=== PATIENT | female | born 1945 | race Caucasian/White ===

== ENCOUNTER → 2017-04-27 12:54 | Outpatient (CLI) | payer MEDICARE, OTHER, SELFPAY ==
--- NOTE | 2017-04-27 13:00 | HPBI_ITS ---
MAMMOGRAPHY - BILATERAL SCREENING REASON FOR EXAM: Female, 71 years old. Routine annual screening examination. PERTINENT HISTORY: Non-contributory. TECHNIQUE: Digital bilateral breast kamran (3D mammographic acquisition) in the CC and MLO projections. 2-D mediolateral oblique (MLO) and craniocaudad (CC) views of both breasts were obtained. CAD: Full Field Digital Mammography with Computer Added Detection was performed. COMPARISON: Comparison is made with prior study dated December 04, 2015 and January 31, 2014. FINDINGS: Breast Composition: There are scattered areas of fibroglandular density. There are no dominant masses or suspicious calcifications. Stable scattered bilateral calcifications. Stable benign-appearing bilateral axillary lymph nodes. No other significant abnormalities are identified. There has been no significant change since the prior study. HPBI/SCREENING MAMM (CAD), BILAT IMPRESSION: Stable bilateral screening mammogram. Yearly follow-up mammogram recommended. (A) ASSESSMENT CATEGORY: BIRADS Category 2: Benign. A letter regarding these results will be sent to the patient by the facility within 30 days. Approximately 10% of breast cancers are not detected by mammography. A normal mammogram should not delay biopsy of a clinically suspicious abnormality. [id number] Electronically Signed: Gareth Rojas MD at 15:13 EST Tel [phone], Service support ,
== END ==
PROVIDERS: Family Provider Internal Medicine; PCP Internal Medicine; Visit Provider Internal Medicine
DX: Z12.31 Encounter for screening mammogram for malignant neoplasm of breast (principal)
CPT/HCPCS: 77063; 77067

== ENCOUNTER → 2018-01-14 14:27 | Outpatient (CLI) | payer MEDICARE, OTHER, SELFPAY ==
--- NOTE | 2018-01-14 14:34 | CT_ITS ---
STUDY: CT SOFT TISSUE NECK WITH CONTRAST REASON FOR EXAM: Female, 72 years old. Right neck mass RADIATION DOSAGE (If Supplied By Facility): CTDIvol = ( 19.41 ) mGy, DLP = ( 1046.99 ) mGycm TECHNIQUE: The patient was scanned in a multi-detector CT scanner. High resolution transaxial imaging was performed following intravenous administration of 75CC ml of Isovue 300 contrast material. Sagittal and coronal images were reconstructed. # of Images: 546 Individualized dose optimization techniques were used for this CT. COMPARISON: None. FINDINGS: Normal bilateral parotid glands. Normal bilateral notch grinder spaces. Normal bilateral parapharyngeal spaces. Normal bilateral carotid spaces. Normal bilateral sublingual and submandibular glands and spaces. Normal visualized nasopharynx. Normal retropharyngeal space. Normal perivertebral space. Normal visualized bilateral faucial tonsils. The visualized tongue, tongue base and oropharynx are normal. Nonspecific subcentimeter short axis cervical chain lymph nodes. There is atherosclerotic disease of the aorta as well as the carotid and vertebral arteries. There is tortuous elongation of the internal carotid arteries. Normal epiglottis, bilateral vallecula and hypopharynx. The pre-epiglottic and paraglottic adipose spaces are normal. Normal visualized bilateral piriform sinuses, aryepiglottic folds, vocal cords, and arytenoid-cricoid articulations. Normal subglottic trachea. There is a low-attenuation structure 1.1 cm within the left thyroid gland. There is a soft tissue masslike structure measuring 4 x 3.6 x 3.3 cm. This structure is intimately associated with the region of the right thyroid gland. This appears to most likely be originating from the right thyroid lobe. This causes mass effect on the adjacent airway and vascular structures. Emphysematous changes within the visualized lungs. Subcentimeter short axis partially visualized mediastinal lymph nodes. There is mucosal inflammatory disease of the paranasal sinuses consistent with chronic sinusitis. There is multilevel degenerative changes of the cervical spine. Torus palatinus. CT/Soft Tissue Neck WITH Contrast IMPRESSION: There is a masslike structure seen within the right neck and appears to be originating from the right thyroid lobe. Recommend ultrasound to further evaluate. A neoplasm cannot be excluded. Additional low-attenuation structure within the left thyroid gland can be further characterized by ultrasound. Vascular calcifications. Nonspecific subcentimeter short axis lymph nodes as above. Multilevel degenerative changes of the spine. Emphysematous changes within the lungs. Electronically Signed: Pedro Ring, at 3:45 EDT Tel , Service support ,
[2018-01-14 16:13] LABS: Absolute Lymphocyte Count 1.91 X10^3/ul (0.83-4.51); Absolute Neutrophil Count 5.9 X10^3/uL (2.0-7.7); Basophil# 0.03 X10^3/uL; Basophil% 0.3 % (0-1); Eosinophil# 0.16 X10^3/uL; Eosinophils% 1.8 % (0-5); Hematocrit 37.3 % (37-47); Hemoglobin 12.2 g/dl (12.0-15.0); Lymphocyte # 1.91 X10^3/ul (4.0); Lymphocyte % 21.5 % (19-41); Mean Corp Hgb Conc 32.7 g/gl (32-36); Mean Corpuscular Hgb 31.6 pg (27.0-32.0); Mean Corpuscular Volume 96.6 fL (81-99); Mean Platelet Vol. 10.1 fl (6.2-12.0); Monocyte# 0.87 X10^3/uL; Monocyte% 9.8 % (0-10); Neutrophil % 66.6 % (47-70); Platelet Count 273 K/mm3 (150-450); RBC Distribution Width CV 12.4 % (11.6-14.6); RBC Distribution Width SD 42.3 fl (35.1-43.9); Red Blood Count 3.86 M/mm3 (4.2-5.4); White Blood Count 8.9 K/mm3 (4.4-11.0)
[2018-01-14 16:16] LABS: POSITIVE COUNT NO; POSITIVE DIFFERENTIAL NO; POSITIVE MORPHOLOGY NO
[2018-01-14 16:59] LABS: Erythrocyte Sedimentation Rate 32 mm/hr (0-30)
== END ==
PROVIDERS: Family Provider Internal Medicine; PCP Internal Medicine; Referring Provider Internal Medicine; Visit Provider Internal Medicine
DX: R22.1 Localized swelling, mass and lump, neck (principal)
CPT/HCPCS: 36415; 70491; 85025; 85652; 86140; Q9967

== ENCOUNTER → 2018-01-15 12:59 | Outpatient (CLI) | payer MEDICARE, OTHER, SELFPAY ==
--- NOTE | 2018-01-15 13:03 | US_ITS ---
STUDY: THYROID ULTRASOUND REASON FOR EXAM: Female, 72 years old. Thyroid nodule noted on recent CT scan. TECHNIQUE: Ultrasound evaluation of the thyroid was performed with real-time and static shahid-scale imaging. # of Images: 61 COMPARISON: None. FINDINGS: RIGHT LOBE: The right lobe of the thyroid gland measures 5 x 2.7 x 3.6 cm. There is a homogeneous echotexture. There is a well-defined nodule in the right thyroid lobe shows diffuse punctate echogenic foci consistent with TIRADS category 3 low suspicion for malignancy. LEFT LOBE: The left lobe of the thyroid gland measures 3.8 x 1.1 x 1.1 cm. There is a homogeneous echotexture. There is a complex nodule in the lower part of left-sided lobe measures 1.8 x 1.2 x 1.0 cm consistent with TIRADS category 3 low suspicion for malignancy. ISTHMUS: The isthmus measures 4 mm . The regional lymph nodes are normal. US/Thyroid IMPRESSION: Bilateral thyroid nodules as described above are consistent with low suspicion of malignancy. Electronically Signed: Harmony Mai MD at 14:42 EDT Tel , Service support ,
== END ==
PROVIDERS: Family Provider Internal Medicine; PCP Internal Medicine; Referring Provider Internal Medicine; Visit Provider Internal Medicine
DX: R93.89 Abnormal findings on diagnostic imaging of other specified body structures (principal)
CPT/HCPCS: 76536

== ENCOUNTER → 2018-02-04 15:24 | Outpatient (CLI) | payer MEDICARE, OTHER, SELFPAY ==
--- NOTE | 2018-02-04 13:30 | FLU_PTH ---
PATIENT: CHIRAG RUFFIN LOC: [facility] U#:[id number] AGE/SX: 79/F ROOM: RE02/04/[address]: Dr. Dash Cavazos MD : 1945 BED: DIS: SPEC #: [id number] RECD: 02/04/18 15:14 STATUS: SONY CHARLES #: [id number] MARY: 02/04/18 13:[address]: Dash Cavazos DEPT: CYTOLOGY RECD BY: Macario Vega ENTERED: 02/05/18 06:35 SP TYPE: Fluid OTHR DR: Dr. Su Thomas DO Tissues: A - Thyroid gland, NOS B - Thyroid gland, NOS Procedures: Pap Stain (control) Special Stain Group II Surgery Specimen Level IV Cell Block Cytospin Fluid Cytology Other HEADER OPERATION: Ultrasound-guided fine needle aspiration bilateral thyroid PRE-OP DIAGNOSIS: Multinodular goiter E04.2 TISSUE SUBMITTED: A - Right thyroid fluid in syringe x2 for cytology, B - Left thyroid fine needle aspiration 12 slides DIAGNOSIS CYTOLOGY A. Right thyroid fluid, ultrasound guided FNA (cytospin and cell block): Consistent with cyst contents. See cytology study and comment. B. Left thyroid, ultrasound guided FNA (smear): Consistent of benign follicular nodule, favor colloid nodule. Adequate for evaluation. CONCEPCIÓN:georgie 02/08/18 COMMENT A. The specimen is non-diagnostic due to lack of follicular cells. Correlation with clinical, radiologic findings and appropriate followup are necessary. Case has been reviewed in consultation with Dr. Patrick who concurs with the above diagnosis. IDC:AM CYTOLOGY STUDY Slides are reviewed. Specimen is bloody and entirely consists of macrophages. CYTOLOGY GROSS A - Received is 10 ml of cloudy brown fluid labeled with the patient's name and and designated per the requisition as right thyroid. Submitted for cytology preparation including cell block. B - Received are 12 smears labeled with the patient's name and designated per the requisition as left thyroid. Submitted for staining. / 02/05/18 TC: 5 CPT: 25610, 38885, 38197
== END ==
PROVIDERS: Family Provider Internal Medicine; PCP Internal Medicine; Referring Provider Surgery; Visit Provider Surgery
DX: E04.2 Nontoxic multinodular goiter (principal)
CPT/HCPCS: 88108; 88161; 88305; 88313

== ENCOUNTER → 2018-05-05 16:14 | Outpatient (CLI) | payer MEDICARE, OTHER, SELFPAY ==
[2018-01-29 14:03] VITALS: BMI 33.0
--- NOTE | 2018-05-05 16:20 | RAD_ITS ---
STUDY: X-RAY CHEST REASON FOR EXAM: Female, 72 years old. Cough. TECHNIQUE: PA and lateral chest COMPARISON: 04/24/2016 FINDINGS: The lungs are clear. Features of COPD/emphysema. Correlate smoking history. Normal cardiomediastinal silhouette, bill and pleural margins. No acute osseous or upper abdominal process. RAD/Chest PA and Lateral IMPRESSION: No acute cardiopulmonary process. There is no radiographic evidence of pneumonia. Electronically Signed: Macario Christianson MD at 14:54 EST Tel , Service support ,
== END ==
PROVIDERS: Family Provider Internal Medicine; PCP Internal Medicine; Referring Provider Internal Medicine; Visit Provider Internal Medicine
DX: R05 Cough (principal)
CPT/HCPCS: 71046

== ENCOUNTER → 2018-05-06 15:10 | Outpatient (CLI) | payer MEDICARE, OTHER, SELFPAY ==
--- NOTE | 2018-05-06 15:14 | RAD_ITS ---
HISTORY: Abdominal Pain EXAM: Abdominal series COMPARISON: Lumbar spine series 05/06/2018 FINDINGS: XR Abdomen 2 views supine No bowel obstruction. Small and large intestinal loops are nondilated. Lumbar spine and lower thoracic degenerative spondylosis. Atherosclerotic calcifications. No soft tissue mass or organomegaly. As correlated with lumbar spine series the same date, smooth medication tablet within the stomach and the tablet projects at the L2-3 level on the right. Pelvic phleboliths. RAD/Abdomen Single View IMPRESSION: Nonobstructive bowel gas pattern. No acute disease. Chronic changes, as above. at 0607 Reported and signed by: Mykel Jackson MD Electronically Signed: Mykel Jackson, at 6:06 EST Tel , Service support ,
--- NOTE | 2018-05-06 15:15 | RAD_ITS ---
HISTORY: Back Pain COMPARISON: 07/10/2016 FINDINGS: XR Spine Lumbar 5 views No significant change. Lumbar vertebra are normal in height. No fracture or acute osseous abnormality. Straightening of the lumbar spine with loss of the normal lumbar lordosis. Diffuse narrowing of the lumbar disc spaces accompanied by endplate spurring and multilevel reactive endplate sclerosis. Endplate spurs project both anteriorly and posteriorly. The posterior elements appear intact. No spondylolisthesis. SI joints are grossly preserved. 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 RAD/L/S Spine Min 4 Views IMPRESSION: 1. Lumbar spine advanced degenerative disc disease and spondylosis throughout with loss of the normal lumbar lordosis. 2. No significant change compared to previous. 3. Extensive atherosclerotic calcifications. at 0557 Reported and signed by: Mykel Jackson MD Electronically Signed: Mykel Jackson, at 5:56 EST Tel , Service support ,
== END ==
PROVIDERS: Family Provider Internal Medicine; PCP Internal Medicine; Referring Provider Nurse Practitioner Gerontology; Visit Provider Nurse Practitioner Gerontology
DX: M54.9 Dorsalgia, unspecified (principal)
CPT/HCPCS: 72110; 74018

== ENCOUNTER → 2018-06-10 15:13 | Outpatient (CLI) | payer MEDICARE, OTHER, SELFPAY ==
[2018-01-29 14:03] VITALS: BMI 33.0
--- NOTE | 2018-06-10 15:16 | BI_ITS ---
MAMMOGRAPHY - BILATERAL SCREENING REASON FOR EXAM: Female, 72 years old. Routine annual screening examination. PERTINENT HISTORY: Non-contributory. TECHNIQUE: Digital bilateral breast kamran (3D mammographic acquisition) in the CC and MLO projections. 2-D mediolateral oblique (MLO) and craniocaudad (CC) views of both breasts were obtained. CAD: Full Field Digital Mammography with Computer Added Detection was performed. COMPARISON: Comparison is made with prior study dated April 27, 2017 and March 04, 2016. FINDINGS: Breast Composition: There are scattered areas of fibroglandular density. There are no dominant masses or suspicious calcifications. Stable benign-appearing bilateral axillary lymph nodes. No other significant abnormalities are identified. There has been no significant change since the prior study. BI/SCREENING MAMM (CAD), BILAT IMPRESSION: Stable bilateral screening mammogram. Yearly follow-up mammogram recommended. (A) ASSESSMENT CATEGORY: BIRADS Category 2: Benign. A letter regarding these results will be sent to the patient by the facility within 30 days. Approximately 10% of breast cancers are not detected by mammography. A normal mammogram should not delay biopsy of a clinically suspicious abnormality. [id number] Electronically Signed: Gareth Rojas, at 9:17 EDT , Service support ,
--- NOTE | 2018-06-10 15:23 | BD_ITS ---
STUDY: DUAL ENERGY X-RAY ABSORPTIOMETRY / DXA REASON FOR EXAM: Female, 72 years old. Early menopause. Loss of height. TECHNIQUE: Bone Mineral Density (BMD) measurements of lumbar spine and bilateral hips were obtained. COMPARISON: Comparison is made with prior study dated March 04, 2016. FINDINGS: Lumbar Spine (L1-L4): g/cm2 (1.775) / T-score (4.8) / Z-score (6.5) Findings are suggestive of normal bone density with a low fracture risk. Left Femur Total: g/cm2 (1.184) / T-score (1.4) / Z-score (3.1) Left Femoral Neck: g/cm2 (1.132) / T-score (0.7) / Z-score (2.6) Right Femur Total: g/cm2 (1.165) / T-score (1.3) / Z-score (3.0) Right Femoral Neck: g/cm2 (1.210) / T-score (1.2) / Z-score (3.1) The T-Scores on the most recent prior examination were: Lumbar Spine (L1-L4): There has been improvement of bone density since the previous examination. Left Femur Total: which represents an improvement of 1.7%. Right Femur Total: which represents a worsening of 7.2%. BD/Dexa Bone Density Study IMPRESSION: The patient is considered normal as outlined below according to World Madhav Organization (WHO) criteria with a low fracture risk. There has been improvement of bone density since the previous examination. Reference Information: The T-score is the number of standard deviations above or below the standard which is normal for young adults at their peak bone mineral density. The World Health Organization (WHO) interprets the T-scores as follows: Above -1 Normal bone density Between -1 and -2.5 Osteopenia Equal to / or below -2.5 Osteoporosis As a practical clinical guideline, osteopenia may be graded as follows: Mild -1 through -1.5 Moderate -1.6 through -2.0 Severe -2.1 through -2.4 The Z-score is the number of standard deviations above or below age-matched controls. A Z-score of less than -1.5 would be considered abnormal. References: 1. NIH Osteoporosis and Related Bone Diseases http://www.osteo.org 2. International Society for Clinical Densitometry http://www.iscd.org 3. National Osteoporosis Foundation http://www.nof.org Electronically Signed: Gareth Rojas, at 13:32 EDT , Service support ,
== END ==
PROVIDERS: Family Provider Internal Medicine; PCP Internal Medicine; Referring Provider Internal Medicine; Visit Provider Internal Medicine
DX: Z12.31 Encounter for screening mammogram for malignant neoplasm of breast (principal); Z78.0 Asymptomatic menopausal state
CPT/HCPCS: 77063; 77067; 77080

== ENCOUNTER 2018-09-09 23:07 | Emergency (ER) | payer MEDICARE, OTHER, SELFPAY ==
[2018-09-09 23:09] VITALS: BP 186/73; PULSE 79; RESP 17; TEMP 36.9; O2SAT 97; BMI 30.4
--- NOTE | 2018-09-09 23:21 | EKG12_ITS ---
Test Reason : ABDOMINAL PAIN Blood Pressure : / mmHG Vent. Rate : 076 BPM Atrial Rate : 076 BPM P-R Int : 188 ms QRS Dur : 088 ms QT Int : 388 ms P-R-T Axes : 058 062 035 degrees QTc Int : 436 ms Normal sinus rhythm Normal ECG Confirmed by AGUEDA TERRY ([id number]), general expeditor JOCELINE GOODE ([id number]) on 09/13/2018 1:12:59 PM Referred By: HUNTER Confirmed By:JAMEL TERRY
[2018-09-09] MEDS: Ondansetron 4 MG/2 ML Vial IV (23:37)
[2018-09-09 23:53] LABS: Absolute Neutrophil Count 4.4 X10^3/uL (2.0-7.7); Basophil# 0.03 X10^3/uL; Basophil% 0.4 % (0-1); Eosinophil# 0.21 X10^3/uL; Eosinophils% 2.7 % (0-5); Hematocrit 39.8 % (37-47); Hemoglobin 13.3 g/dl (12.0-15.0); Lymphocyte % 28.2 % (19-41); Mean Corp Hgb Conc 33.4 g/gl (32-36); Mean Corpuscular Hgb 31.1 pg (27.0-32.0); Mean Platelet Vol. 9.7 fl (6.2-12.0); Monocyte# 0.94 X10^3/uL; Monocyte% 12.1 % (0-10); Neutrophil % 56.5 % (47-70); Platelet Count 248 K/mm3 (150-450); RBC Distribution Width CV 12.5 % (11.6-14.6); RBC Distribution Width SD 41.7 fl (35.1-43.9); Red Blood Count 4.28 M/mm3 (4.2-5.4); White Blood Count 7.8 K/mm3 (4.4-11.0)
[2018-09-09 23:56] LABS: POSITIVE COUNT NO; POSITIVE DIFFERENTIAL NO; POSITIVE MORPHOLOGY NO
[2018-09-10 00:04] LABS: ALB/GLOB Ratio 0.9 RATIO (0.9-2.4); AST(SGOT) 31 U/L (15-37); Alanine Aminotransfer ALT/SGPT 48 U/L (13-56); Albumin, Serum 3.6 g/dL (3.2-5.0); Alkaline Phosphatase 100 U/L (45-117); Anion Gap 5 (5-15); BUN 21 mg/dL (7-18); BUN/Creat Ratio 17.8 RATIO (10-20); Calcium,Total 9.1 mg/dL (8.5-10.1); Chloride 107 mmol/L (98-107); Creatinine, Serum 1.18 mg/dL (0.55-1.02); EST Glomerular Filtration Rate 47 mL/min (>60); Est Glom Filt Rate - Afr Amer 57 mL/min (>60); Estimated Creatinine Clearance 34.08 ml/min; Globulin 4.1 g/dL (2.2-4.2); Glucose 171 mg/dL (74-106); Lipase 196 U/L (73-393); Potassium 3.7 mmol/L (3.5-5.1); Protein, Total 7.7 g/dL (6.4-8.2); Sodium Level 139 mmol/L (136-145)
--- NOTE | 2018-09-10 00:18 | ED.VISSUMM ---
- ER Visit Summary Date of Service: 09/10/18 Chief Complaint: Dizziness History of Present Illness: The patient is a 73 F who presents with dizziness. This began about 5 hours ago. She describes it as a sensation of the room spinning. This is actually since resolved. She states at home she felt heating and ventilating worker her chest and upper abdomen. She had no pain. She was not short of breath. She feels mildly nauseated no vomiting. No history of prior similar symptoms. Physical Examination: Blood pressure 186/73 vitals otherwise normal Moist mucous membranes Heart regular rate and rhythm Lungs clear Abdomen soft Alert Test Results: EKG shows sinus rhythm at a rate of 76. Labs notable for glucose 171. Hepatic function lipase normal. Troponin negative. Emergency Department Course and Treatment: Patient was given Zofran for nausea. On reevaluation she has no complaints. Her symptoms have resolved. She was advised to follow-up with her primary care physician. She was discharged home. Treatment Plan: [] Disposition: Discharge Impression: Dizziness This note was generated with [employer] dictation software. It may contain incorrect words, spelling, and punctuation that were not noted in review of the chart prior to signing ED Disposition - Plan for ED Patient: Referrals: Su Thomas DO [Primary Care Provider] -
--- NOTE | 2018-09-10 00:20 | ED.DEP ---
ED Disposition - Plan for ED Patient: Instructions: ED Dizziness [facility] Referrals: Su Thomas DO [Primary Care Provider] -
== END 2018-09-10 00:35 | disposition home or self-care (01) ==
PROVIDERS: Emergency Provider Emergency Medicine; Family Provider Internal Medicine; PCP Internal Medicine
DX: R42 Dizziness and giddiness (principal); R11.0 Nausea; E11.9 Type 2 diabetes mellitus without complications; I10 Essential (primary) hypertension; E78.00 Pure hypercholesterolemia, unspecified; M79.7 Fibromyalgia; M19.90 Unspecified osteoarthritis, unspecified site; E03.9 Hypothyroidism, unspecified; Z79.899 Other long term (current) drug therapy
CPT/HCPCS: 80053; 83690; 84484; 85025; 93005; 96374; 99285; A4216; J2405

== ENCOUNTER 2018-10-17 09:56 | Emergency (ER) | payer MEDICARE, OTHER, SELFPAY ==
[2018-10-17 09:57] VITALS: BP 127/75; PULSE 88; RESP 16; TEMP 36.6; O2SAT 96; BMI 32.0
--- NOTE | 2018-10-17 10:12 | CT_ITS ---
STUDY: CT ABDOMEN AND PELVIS WITHOUT CONTRAST REASON FOR EXAM: Female, 73 years old. Right flank pain RADIATION DOSAGE (If Supplied By Facility): CTDIvol = ( 11.27 ) mGy, DLP = ( 551.70 ) mGycm TECHNIQUE: Transaxial images were obtained from the dome of the diaphragm to the symphysis pubis without oral contrast, and without intravenous contrast. Sagittal and coronal images were reconstructed. Individualized dose optimization techniques were used for this CT. COMPARISON: None. FINDINGS: The visualized lung bases are unremarkable. The visualized portions of the heart are within normal limits. There is decreased attenuation of the liver consistent with steatosis. Normal gallbladder and extrahepatic biliary system. Normal spleen. Normal pancreas. Normal bilateral adrenal glands. Normal right kidney. Normal left kidney. Normal visualized stomach. There is a small duodenal diverticulum of doubtful significance. There are multiple colonic diverticula consistent with diverticulosis. There is non-visualization of the appendix. There is diffuse atherosclerotic calcification of the abdominal aorta, without a demonstrated aneurysm. Normal inferior vena cava. Normal retroperitoneum. Normal urinary bladder. There is absence of the uterus consistent with a prior hysterectomy. Normal abdominal wall. There are diffuse degenerative changes of the visualized lumbar spine. CT/Abdomen/Pelvis without Cont IMPRESSION: 1. No hydronephrosis or urinary tract calcifications. 2. Chronic changes, as above. Electronically Signed: Lawrence Woodall MD at 10:46 EDT , Service support ,
--- NOTE | 2018-10-17 10:13 | ED.DCSUM_ITS ---
History of Present Illness Chief Complaint: Back Detail of Chief Complaint: Back / right flank pain Informant: Patient Onset: Month(s) - 1 month Context: Gradual Onset Timing: Waxes and wanes Current Severity: Moderate Maximum Severity: Moderate Narrative: Patient presents with a one-month history of right-sided back pain. She denies injury at onset. She was seen by her PCP earlier this week who felt it was related to muscle spasms. She is been taking Flexeril without significant improvement. She is also been taking Tylenol arthritis. Patient denies urinary symptoms. She denies abdominal pain, nausea, or vomiting. She denies pain radiation to the legs. She denies history of prior back problems. - Past Medical History (1) Diabetes Status: Chronic (2) Neuropathy Status: Chronic (3) Fibromyalgia Status: Chronic (4) Hypertension Status: Chronic (5) High cholesterol Status: Chronic (6) Hypothyroidism Status: Chronic (7) Rheumatoid arthritis Status: Chronic Past Medical History - Allergies and Home Meds Allergies/Adverse Reactions: Allergies aspirin Allergy (Intermediate, Verified 10/17/18 09:57) heart races, dizziness povidone-iodine [From Betadine] Allergy (Intermediate, Verified 10/17/18 09:57) rash soap [From Betadine] Allergy (Intermediate, Verified 10/17/18 09:57) rash amitriptyline Allergy (Unknown, Verified 10/17/18 09:57) Unknown doxepin Allergy (Unknown, Verified 10/17/18 09:57) unknown guaifenesin [From Entex LA] Allergy (Unknown, Verified 10/17/18 09:57) Unknown latex Allergy (Unknown, Verified 10/17/18 09:57) Unknown phenylephrine [From Entex LA] Allergy (Unknown, Verified 10/17/18 09:57) Unknown phenylpropanolamine [From Entex LA] Allergy (Unknown, Verified 10/17/18 09:57) Unknown pseudoephedrine Allergy (Unknown, Verified 10/17/18 09:57) Unknown Sulfa (Sulfonamide Antibiotics) Allergy (Unknown, Verified 10/17/18 09:57) Unknown Primary Care Physician: Su Thomas DO [Primary Care Provider] - Prior records reviewed: Yes Past Medical History: - - Reviewed Lives: Spouse/ Significant Other Smoking Status: Never smoker Review of Systems General: Denies: Chills, Fever Eyes: Denies: Visual changes - left, Visual changes - right ENT: Denies: Bilateral ear pain Cardiovascular: Denies: Chest pain, Palpitations Respiratory: Denies: Dyspnea, Cough Gastrointestinal: Denies: Abdominal pain, Nausea, Vomiting, Diarrhea Musculoskeletal: Reports: Back pain. Denies: Neck pain Skin: Denies: Rash Neurological: Denies: Headache, Weakness, Parasthesia Endocrine: Denies: Polyuria, Polydipsia Hematologic: Denies: Easy bleeding Allergy: Denies: Uticaria Physical Exam Vital Signs/Narrative: Vital Signs Temp Pulse Resp BP Pulse Ox 10/17/18 09:57 97.9 F 88 16 127/75 H 96 General: Well nourished, Well developed Head: Normocephalic ENT: Moist mucous membranes Neck: Supple Cardiovascular: Regular rate, Regular rhythm Respiratory: No distress, CTA bilaterally Abdomen: Soft, Nontender, Nondistended Back: Normal Inspection - No midline thoracic or lumbar tenderness. She has reproducible tenderness in the lateral portion of the right lumbar paraspinals. No overlying skin change noted. Extremities: Nontender, No edema Skin: Normal color Neurological: Alert, Oriented x3, Normal Strength, Normal Sensation Psychological: Normal affect Diagnostic/Tx/Re-eval Impressions Abdomen/Pelvis CT 10/17/18 10:12 IMPRESSION: 1. No hydronephrosis or urinary tract calcifications. 2. Chronic changes, as above. Electronically Signed: Lawrence Woodall MD at 10:46 EDT , Service support , 10/17/18 10:12 Abdomen/Pelvis without Cont [CT] Stat Laboratory Results 10/17/18 10:47 Urine Color Straw Urine Clarity Clear Urine pH 7.0 Ur Specific Advance 1.005 Urine Protein Negative Urine Glucose (UA) Normal Urine Ketones Negative Urine Occult Blood Negative Urine Nitrite Negative Urine Bilirubin Negative Urine Urobilinogen Normal Ur Leukocyte Esterase Negative Urine RBC 0 SEEN Urine WBC 0 SEEN Ur Squamous Epith Cells 0 SEEN Urine Bacteria 0 SEEN Urine Mucus 0 SEEN - Medical Decision Making Patient was given 1 tab of [place] here along with Zofran. On repeat evaluation pain is significantly improved. Test results were discussed with her. She does raise concern about possibility of constipation with pain medication, stating she has had problems with that in the past. I recommended trying Lidoderm patches [id number] to the area and using a half a tab of [place] as needed intermittently. She voices understanding and agreement. ED Disposition - Plan for ED Patient: Disposition: Home or Assisted Living Diagnosis: Musculoskeletal back pain Instructions: BACK AND NECK PAIN, General Prescriptions: Hydrocodone Bitart/Apap 5-325 [[place] 5MG-325MG] 0.5 - 1 tablet PO Q6H PRN PRN 3 Days #10 tablet PRN Reason: Pain Ondansetron [Zofran Odt] 4 mg PO Q8H PRN PRN #10 tablet PRN Reason: Nausea Referrals: Su Thomas DO [Primary Care Provider] - 1 Week if not improving
[2018-10-17] MEDS: HYDROcodone Bitartrate/Apap 5/325 Tablet PO (10:20)
[2018-10-17] MEDS: Ondansetron ODT 4 MG Tablet PO (10:20)
[2018-10-17 10:53] LABS: Bacteria 0 SEEN /hpf (None Seen); Mucous, Urine 0 SEEN /hpf (<or=2+); Red Blood Cells-Urine 0 SEEN /hpf (0-5); Squamous Epithelial Cells - UA 0 SEEN /hpf (5-10); White Blood Cells 0 SEEN /hpf (0-5)
[2018-10-17 11:37] LABS: Color, Urine Straw (Yellow); Glucose, Dipstick Normal (Normal); Ketone-Dipstick Negative (Negative); Leukocyte Esterase-Dipstick Negative /ul (Negative); Nitrite-Dipstick Negative (Negative); Occult Blood-Urine Negative /ul (Negative); Protein-Dipstick Negative (Negative); Specific Gravity, Urine 1.005 (1.002-1.030); Urine Bilirubin Dipstick Negative (Negative); Urine Clarity Clear (Clear); Urine Urobilinogen Normal (Normal)
[2018-10-17 12:16] VITALS: BP 121/83; PULSE 61; RESP 12; O2SAT 97
== END 2018-10-17 12:16 | disposition home or self-care (01) ==
PROVIDERS: Emergency Provider Emergency Medicine; Family Provider Internal Medicine; PCP Internal Medicine
DX: M54.9 Dorsalgia, unspecified (principal); E11.40 Type 2 diabetes mellitus with diabetic neuropathy, unspecified; M79.7 Fibromyalgia; I10 Essential (primary) hypertension; E78.00 Pure hypercholesterolemia, unspecified; E03.9 Hypothyroidism, unspecified; M06.9 Rheumatoid arthritis, unspecified; Z79.899 Other long term (current) drug therapy
CPT/HCPCS: 74176; 81001; 99283

== ENCOUNTER → 2019-03-10 14:02 | Outpatient (CLI) | payer MEDICARE, OTHER, SELFPAY ==
--- NOTE | 2019-03-10 14:15 | RAD_ITS ---
STUDY: X-RAY - PELVIS AND RIGHT HIP REASON FOR EXAM: Muscle spasms for one year, no specific injury. TECHNIQUE: 2 views of the pelvis and hip. COMPARISON: None. FINDINGS: There are pelvic phleboliths. Normal bilateral iliac wings, sacroiliac joints and visualized sacrum. Normal bilateral superior and inferior pubic rami. Normal pubic symphysis. Normal bilateral ischial tuberosities. Normal visualized femoral head. Normal acetabulum. There is moderate joint space narrowing of the right hip joint. There is an enthesophyte at the right greater trochanter. RAD/HIP, UNI W/ Pelvis 2-3 Views IMPRESSION: Right hip arthrosis. Enthesopathy of the right greater trochanter. Electronically Signed: Dakota Garcia MD at 14:38 EST Tel , Service support ,
== END ==
PROVIDERS: Family Provider Internal Medicine; PCP Internal Medicine; Referring Provider Internal Medicine; Visit Provider Internal Medicine
DX: M25.551 Pain in right hip (principal)
CPT/HCPCS: 73502

== ENCOUNTER → 2019-05-09 14:49 | Outpatient (CLI) | payer MEDICARE, OTHER, SELFPAY ==
--- NOTE | 2019-05-09 14:52 | RAD_ITS ---
STUDY: X-RAY CHEST REASON FOR EXAM: Female, 73 years old. COUGH, CONGESTION X 1 WEEK TECHNIQUE: PA and lateral views of the chest. COMPARISON: 05/05/18. FINDINGS: The lungs are clear and expanded. There is no demonstrated pleural abnormality. Normal size heart. Normal mediastinum and bill. Normal visualized pulmonary arteries. There is atherosclerotic calcification of the aortic arch with tortuosity. There is an increased kyphosis of the thoracic spine. Normal visualized ribs, clavicles, and shoulders. There is no demonstrated abnormality of the visualized soft tissue structures of the upper abdomen. RAD/Chest PA and Lateral IMPRESSION: No acute cardiopulmonary disease. Electronically Signed: Luh Jenkins MD at 0:22 EST , Service support ,
== END ==
PROVIDERS: PCP Internal Medicine; Referring Provider Internal Medicine; Visit Provider Internal Medicine
DX: R05 Cough (principal)
CPT/HCPCS: 71046

== ENCOUNTER → 2019-05-23 16:47 | Outpatient (CLI) | payer MEDICARE, OTHER, SELFPAY ==
--- NOTE | 2019-05-23 16:59 | RAD_ITS ---
STUDY: X-RAY CHEST REASON FOR EXAM: Female, 73 years old. COUGH AND CONGESTION TECHNIQUE: Frontal and lateral views of the chest. COMPARISON: 05/09/2019 FINDINGS: There is hyperinflation of the lungs consistent with chronic obstructive lung disease (COPD). No infiltrates or effusions. There is no demonstrated pleural abnormality. Normal size heart. Normal mediastinum and bill. Normal visualized pulmonary arteries. Normal visualized aortic arch and descending thoracic aorta. There are diffuse degenerative changes of the visualized thoracic spine. Normal visualized ribs, clavicles, and shoulders. There is no demonstrated abnormality of the visualized soft tissue structures of the upper abdomen. RAD/Chest PA and Lateral IMPRESSION: There are findings consistent with COPD. There is no evidence of acute chest disease. Electronically Signed: Carlos Monge MD at 23:52 EST , Service support ,
== END ==
PROVIDERS: PCP Internal Medicine; Referring Provider Internal Medicine; Visit Provider Internal Medicine
DX: R05 Cough (principal)
CPT/HCPCS: 71046

== ENCOUNTER → 2019-06-07 13:22 | Outpatient (CLI) | payer MEDICARE, OTHER, SELFPAY ==
[2019-06-07 15:41] LABS: Absolute Lymphocyte Count 1.89 X10^3/uL (0.83-4.51); Basophil# 0.04 X10^3/uL; Basophil% 0.5 % (0-1); Eosinophil# 0.27 X10^3/uL; Eosinophils% 3.5 % (0-5); Hematocrit 40.1 % (37-47); Lymphocyte # 1.89 X10^3/ul (4.0); Lymphocyte % 24.2 % (19-41); Mean Corp Hgb Conc 32.4 g/dL (32-36); Mean Corpuscular Hgb 30.9 pg (27.0-32.0); Mean Corpuscular Volume 95.2 fL (81-99); Mean Platelet Vol. 10.8 fl (6.2-12.0); Monocyte# 0.65 X10^3/uL; Monocyte% 8.3 % (0-10); NRBC Flagged by Analyzer 0 % (0-5); Neutrophil # 4.95 X10^3/uL (2.7-7.7); Neutrophil % 63.4 % (47-70); Platelet Count 192 K/mm3 (150-450); RBC Distribution Width CV 12.2 % (11.6-14.6); RBC Distribution Width SD 42.4 fl (35.1-43.9); Red Blood Count 4.21 M/mm3 (4.2-5.4); White Blood Count 7.8 K/mm3 (4.4-11.0)
[2019-06-07 15:57] LABS: Erythrocyte Sedimentation Rate 35 mm/hr (0-30)
[2019-06-07 16:05] LABS: ALB/GLOB Ratio 0.9 RATIO (0.9-2.4); AST(SGOT) 28 U/L (15-37); Alanine Aminotransfer ALT/SGPT 35 U/L (13-56); Albumin, Serum 3.3 g/dL (3.2-5.0); Alkaline Phosphatase 72 U/L (45-117); Anion Gap 7 (5-15); BUN 19 mg/dL (7-18); BUN/Creat Ratio 20.3 RATIO (10-20); CRP 9.19 mg/L (0.0-3.0); Calcium,Total 9.5 mg/dL (8.5-10.1); Chloride 102 mmol/L (98-107); Creatinine, Serum 0.93 mg/dL (0.55-1.02); EST Glomerular Filtration Rate 62 mL/min (>60); Est Glom Filt Rate - Afr Amer 75 mL/min (>60); Globulin 3.6 g/dL (2.2-4.2); Glucose 147 mg/dL (74-106); Protein, Total 6.9 g/dL (6.4-8.2); Rheumatoid Factor < 10.0 IU/mL (<15); Sodium Level 138 mmol/L (136-145)
[2019-06-08 09:16] LABS: Hepatitis B Surface Antibody Non-Reactive; Hepatitis B Surface Antigen Non-Reactive (Nonreactive); Hepatitis C Antibody Non-Reactive (Nonreactive)
[2019-06-10 10:16] LABS: CCP IgG Antibodies 9 units (0-19); Hepatitis B Core AB IgM Negative (Negative)
[2019-06-10 11:26] LABS: ANTINUCLEAR ANTIBODIES DIRECT Negative (Negative)
== END ==
PROVIDERS: PCP Internal Medicine; Referring Provider Internal Medicine Rheumatology; Visit Provider Internal Medicine Rheumatology
DX: M06.4 Inflammatory polyarthropathy (principal); M79.7 Fibromyalgia; M19.041 Primary osteoarthritis, right hand; M17.0 Bilateral primary osteoarthritis of knee; M47.897 Other spondylosis, lumbosacral region; M47.892 Other spondylosis, cervical region; E11.42 Type 2 diabetes mellitus with diabetic polyneuropathy; I10 Essential (primary) hypertension; E03.9 Hypothyroidism, unspecified; F32.9 Major depressive disorder, single episode, unspecified; E78.5 Hyperlipidemia, unspecified
CPT/HCPCS: 36415; 80053; 85025; 85652; 86038; 86140; 86200; 86431; 86705; 86706; 86803; 87340

== ENCOUNTER → 2019-07-20 12:47 | Outpatient (CLI) | payer MEDICARE, OTHER, SELFPAY ==
[2019-07-20 15:32] LABS: Absolute Neutrophil Count 4.2 X10^3/uL (2.0-7.7); Basophil# 0.05 X10^3/uL; Basophil% 0.7 % (0-1); Eosinophil# 0.22 X10^3/uL; Eosinophils% 3.1 % (0-5); Hematocrit 39.5 % (37-47); Hemoglobin 13.1 g/dL (12.0-15.0); Lymphocyte % 25.3 % (19-41); Mean Corp Hgb Conc 33.2 g/dL (32-36); Mean Corpuscular Hgb 30.9 pg (27.0-32.0); Mean Corpuscular Volume 93.2 fL (81-99); Mean Platelet Vol. 9.9 fl (6.2-12.0); Monocyte# 0.84 X10^3/uL; Monocyte% 11.8 % (0-10); NRBC Flagged by Analyzer 0 % (0-5); Neutrophil # 4.19 X10^3/uL (2.7-7.7); Neutrophil % 58.8 % (47-70); Platelet Count 342 K/mm3 (150-450); RBC Distribution Width CV 12.6 % (11.6-14.6); RBC Distribution Width SD 42.9 fl (35.1-43.9); Red Blood Count 4.24 M/mm3 (4.2-5.4); White Blood Count 7.1 K/mm3 (4.4-11.0)
[2019-07-20 15:58] LABS: ALB/GLOB Ratio 0.9 RATIO (0.9-2.4); AST(SGOT) 24 U/L (15-37); Alanine Aminotransfer ALT/SGPT 32 U/L (13-56); Albumin, Serum 3.5 g/dL (3.2-5.0); Alkaline Phosphatase 64 U/L (45-117); Anion Gap 9 (5-15); BUN 25 mg/dL (7-18); BUN/Creat Ratio 25.6 RATIO (10-20); Calcium,Total 9.4 mg/dL (8.5-10.1); Chloride 102 mmol/L (98-107); Creatinine, Serum 0.98 mg/dL (0.55-1.02); EST Glomerular Filtration Rate 59 mL/min (>60); Est Glom Filt Rate - Afr Amer 71 mL/min (>60); Globulin 3.9 g/dL (2.2-4.2); Glucose 135 mg/dL (74-106); Potassium 3.5 mmol/L (3.5-5.1); Protein, Total 7.4 g/dL (6.4-8.2); Sodium Level 136 mmol/L (136-145)
== END ==
PROVIDERS: PCP Internal Medicine; Referring Provider Internal Medicine Rheumatology; Visit Provider Internal Medicine Rheumatology
DX: M06.4 Inflammatory polyarthropathy (principal); M79.7 Fibromyalgia; M19.041 Primary osteoarthritis, right hand; M17.0 Bilateral primary osteoarthritis of knee; M47.897 Other spondylosis, lumbosacral region; M47.892 Other spondylosis, cervical region; E11.42 Type 2 diabetes mellitus with diabetic polyneuropathy; I10 Essential (primary) hypertension; E03.9 Hypothyroidism, unspecified; E78.5 Hyperlipidemia, unspecified
CPT/HCPCS: 36415; 80053; 85025

== ENCOUNTER 2020-02-15 02:40 | Emergency (ER) | payer MEDICARE, OTHER, SELFPAY ==
[2020-02-15 02:41] VITALS: BP 170/107; PULSE 84; RESP 18; TEMP 36.7; O2SAT 98; BMI 35.1
--- NOTE | 2020-02-15 02:54 | ED.DCSUM_ITS ---
History of Present Illness Chief Complaint: Dental Informant: Patient Onset: Weeks - 1 Context: Gradual Onset Timing: Continuous Quality: ache Location: left maxillary molar Current Severity: Severe Maximum Severity: Severe Worsened by: eating Relieved by: - - Tylenol helped earlier in the day. took 1/2 of a tramadol tablet tonight. Associated Symptoms: - - No fever, jaw or facial swelling Narrative: Patient has had a tooth ache for a week, she has an appointment with the dentist at 9:30 in the morning. It is almost 3 AM right now, she states she was woken up by the pain, took a half of a tramadol tablet, but she is just in a lot of pain and came in because she needs some help with that. - Past Medical History (1) Diabetes Status: Chronic (2) Fibromyalgia Status: Chronic (3) High cholesterol Status: Chronic (4) Hypertension Status: Chronic (5) Hypothyroidism Status: Chronic (6) Neuropathy Status: Chronic (7) Rheumatoid arthritis Status: Chronic Past Medical History - Allergies and Home Meds Allergies/Adverse Reactions: Allergies aspirin Allergy (Intermediate, Verified 02/15/20 02:41) heart races, dizziness povidone-iodine [From Betadine] Allergy (Intermediate, Verified 02/15/20 02:41) rash soap [From Betadine] Allergy (Intermediate, Verified 02/15/20 02:41) rash amitriptyline Allergy (Unknown, Verified 02/15/20 02:41) Unknown doxepin Allergy (Unknown, Verified 02/15/20 02:41) unknown guaifenesin [From Entex LA] Allergy (Unknown, Verified 02/15/20 02:41) Unknown latex Allergy (Unknown, Verified 02/15/20 02:41) Unknown phenylephrine [From Entex LA] Allergy (Unknown, Verified 02/15/20 02:41) Unknown phenylpropanolamine [From Entex LA] Allergy (Unknown, Verified 02/15/20 02:41) Unknown pseudoephedrine Allergy (Unknown, Verified 02/15/20 02:41) Unknown Sulfa (Sulfonamide Antibiotics) Allergy (Unknown, Verified 02/15/20 02:41) Unknown Primary Care Physician: Su Thomas DO [Primary Care Provider] - Lives: Alone Smoking Status: Never smoker Review of Systems General: Denies: Chills, Fever, Sweats Eyes: Denies: Visual changes - bilaterally, Diplopia ENT: Reports: - - Tooth ache. See HPI.. Denies: Bilateral ear pain, Rhinorrhea, Sore throat Respiratory: Denies: Dyspnea, Cough Gastrointestinal: Denies: Nausea, Vomiting Skin: Denies: Rash, Wounds Neurological: Denies: Headache, Weakness, Numbness Physical Exam Vital Signs/Narrative: Vital Signs Temp Pulse Resp BP Pulse Ox 02/15/20 02:41 98.0 F 84 18 170/107 H 98 Inital Vital Signs reviewed: Yes General: Well nourished, Well developed, - - No acute distress Head: Normocephalic, Atraumatic ENT: Moist mucous membranes, No rhinorrhea. Negative for: Sinus tenderness Mouth/Throat: Normal inspection lips/gums, Normal oral mucosa, No focal abscess, Normal posterior oropharynx, No sublingual edema, Normal Stensen's duct, Tenderness on tooth percussion - On only left maxillary tooth the patient has left, which has a metal cap over it and is otherwise unremarkable-appearing. Negative for: Dental abscess, Trismus Neck: Supple, No lymphadenopathy, Nontender Respiratory: No distress Neurological: Alert, Oriented x3, Cranial nerves II-XII grossly intact, Normal Strength, Normal Sensation, Normal Gait Psychological: Normal affect, Normal Mood Diagnostic/Tx/Re-eval - Medical Decision Making No sign of any acute abscess or drainable collection or gingivitis. Since patient has a dentist appointment in several hours from now, she is in agreement that it would be fine to just treat her pain. She may need antibiotics, but I will defer to dentistry for most appropriate treatment there. ED Disposition - Plan for ED Patient: Disposition: Home or Assisted Living Diagnosis: Odontalgia Instructions: ED Tooth Pain Prescriptions: Hydrocodone Bitart/Apap 5-325 [[place] 5MG-325MG] 1 tab PO Q4H PRN PRN 2 Days #10 tab PRN Reason: Pain Prescription Printed Referrals: Su Thomas DO [Primary Care Provider] - Dentist,Your [STAFF PHYSICIAN] - Keep [facility] appointment (today)
[2020-02-15] MEDS: HYDROcodone Bitartrate/Apap 5/325 Tablet PO (03:12)
[2020-02-15 03:22] VITALS: RESP 16
== END 2020-02-15 03:26 | disposition home or self-care (01) ==
LOC: ED 03:20
PROVIDERS: Emergency Provider Emergency Medicine; PCP Internal Medicine
DX: K08.89 Other specified disorders of teeth and supporting structures (principal); I10 Essential (primary) hypertension; E03.9 Hypothyroidism, unspecified; M06.9 Rheumatoid arthritis, unspecified; M79.7 Fibromyalgia; E78.00 Pure hypercholesterolemia, unspecified; E11.40 Type 2 diabetes mellitus with diabetic neuropathy, unspecified; Z79.899 Other long term (current) drug therapy
CPT/HCPCS: 99282

== ENCOUNTER 2020-02-17 17:39 | Emergency (ER) | payer MEDICARE, OTHER, SELFPAY ==
[2020-02-17 17:40] VITALS: BP 154/94; PULSE 87; RESP 16; TEMP 37.2; O2SAT 95; BMI 31.1
--- NOTE | 2020-02-17 18:21 | ED.VIS.DENTA ---
History of Present Illness Chief Complaint: Dental Informant: Patient Onset: Weeks - 1 Context: Gradual Onset Timing: Continuous Quality: ache Location: left cheek/face Current Severity: Mild Maximum Severity: Severe Worsened by: palpation Relieved by: - - tylenol she took 45 min prior to eval Associated Symptoms: - - No fevers or swelling Narrative: Patient presenting for dental pain. Seen here by myself several days ago, she saw her dentist that morning and was put on 2 antibiotics, this is the third day of those. She revisited the dentist today and they pulled the affected tooth that she states they x-rayed and told her was diseased and needed to be extracted. She states they did a lot of intraoral injections to get the area anesthetized, extracting the tooth did not hurt, but she still had a painful area in her left cheek that was not numb after the injections. She states she still has that pain now. She called both her doctor and the dentist about this, and advised her to come to the emergency department for it. She denies any other new symptoms. No fevers or chills, nausea/vomiting, inability to swallow, discharge or bleeding from the extraction site, or generalized weakness. The pain in her left cheek does not radiate. She denies any earache. She denies any neck pain anteriorly. She denies any rhinorrhea. - Past Medical History (1) Diabetes Status: Chronic (2) Fibromyalgia Status: Chronic (3) High cholesterol Status: Chronic (4) Hypertension Status: Chronic (5) Hypothyroidism Status: Chronic (6) Neuropathy Status: Chronic (7) Rheumatoid arthritis Status: Chronic Past Medical History - Allergies and Home Meds Allergies/Adverse Reactions: Allergies aspirin Allergy (Intermediate, Verified 02/17/20 17:44) heart races, dizziness povidone-iodine [From Betadine] Allergy (Intermediate, Verified 02/17/20 17:44) rash soap [From Betadine] Allergy (Intermediate, Verified 02/17/20 17:44) rash amitriptyline Allergy (Unknown, Verified 02/17/20 17:44) Unknown doxepin Allergy (Unknown, Verified 02/17/20 17:44) unknown guaifenesin [From Entex LA] Allergy (Unknown, Verified 02/17/20 17:44) Unknown latex Allergy (Unknown, Verified 02/17/20 17:44) Unknown phenylephrine [From Entex LA] Allergy (Unknown, Verified 02/17/20 17:44) Unknown phenylpropanolamine [From Entex LA] Allergy (Unknown, Verified 02/17/20 17:44) Unknown pseudoephedrine Allergy (Unknown, Verified 02/17/20 17:44) Unknown Sulfa (Sulfonamide Antibiotics) Allergy (Unknown, Verified 02/17/20 17:44) Unknown Primary Care Physician: Su Thomas DO [Primary Care Provider] - Smoking Status: Never smoker Review of Systems General: Denies: Chills, Fever, Sweats ENT: Reports: - - Left cheek/facial/dental pain. See HPI.. Denies: Bilateral ear pain, Rhinorrhea, Sore throat Gastrointestinal: Denies: Nausea, Vomiting Skin: Denies: Rash, Wounds Neurological: Denies: Headache, Weakness, Numbness Physical Exam Vital Signs/Narrative: Vital Signs Temp Pulse Resp BP Pulse Ox 02/17/20 17:40 98.9 F 87 16 154/94 H 95 Inital Vital Signs reviewed: Yes General: Well nourished, Well developed, - - Well-appearing no distress speaking in full sentences Head: Normocephalic, Atraumatic ENT: Moist mucous membranes, No rhinorrhea Mouth/Throat: Normal inspection lips/gums - Postoperative changes in left maxillary first molar extraction site. No active bleeding, no discharge, tenderness there is very mild at the gingiva., Normal oral mucosa, No focal abscess, No sublingual edema, Normal Stensen's duct, - - Tenderness in the buccal mucosa when sandwiched between my fingers intraorally and externally, reproducing the patient's pain. There is no palpable mass or collection or nodule. There is no discharge from inside the mouth, and no skin changes outside, nor is there any objective swelling.. Negative for: Trismus Neck: Supple, No lymphadenopathy, Nontender Respiratory: No distress, CTA bilaterally, Chest nontender, - - No stridor or garbled voice Skin: Normal color, No rash Neurological: Alert, Oriented x3, Cranial nerves II-XII grossly intact, Normal Strength, Normal Sensation Psychological: Normal affect, Normal Mood Diagnostic/Tx/Re-eval - Medical Decision Making At this time I think pain control is the most reasonable course of action. I do not palpate a drainable collection here. Her pain is easily reproducible and I do not think this is referred pain nor sinus involvement. She has only been on the antibiotics for the third day now today, so I do not think she has failed antibiotics if this is infection, which is my suspicion that it is, in relation to her disease tooth that she just had extracted today. I offered her an infraorbital nerve block which I suspect will temporarily deaden the pain she is referring to now, but she declined it saying that the Tylenol that she took prior to coming here really seem to help although tramadol and Vicodin she had been taking earlier did not help at all. She has tramadol at home, ibuprofen 600 mg tablets, and Tylenol. At this time she does not want an injection, I fear that I have nothing to offer her, she does not appear to have any emergent medical condition, I do not think she needs a CT scan right now, for the reasons I mentioned above since I can palpate the area that hurts and there is no drainable collection or palpable mass there. Furthermore I palpated her parotid grand, it is nontender and the area that hurts is anterior to this plainly. She is okay with this and I advised that if she has increased swelling, or she changes her mind and her pain is out of control and she wants the injection, that she can return at any time. ED Disposition - Plan for ED Patient: Disposition: Home or Assisted Living Diagnosis: Dental infection Instructions: ED Tooth Pain Referrals: Su Thomas DO [Primary Care Provider] - 1-2 Days if not improving (And/or your dentist)
== END 2020-02-17 18:48 | disposition home or self-care (01) ==
LOC: ED 18:32
PROVIDERS: Emergency Provider Emergency Medicine; PCP Internal Medicine
DX: K04.7 Periapical abscess without sinus (principal); K08.89 Other specified disorders of teeth and supporting structures; I10 Essential (primary) hypertension; E03.9 Hypothyroidism, unspecified; E11.40 Type 2 diabetes mellitus with diabetic neuropathy, unspecified; E78.00 Pure hypercholesterolemia, unspecified; M06.9 Rheumatoid arthritis, unspecified; M79.7 Fibromyalgia; Z79.899 Other long term (current) drug therapy
CPT/HCPCS: 99282

== ENCOUNTER → 2020-02-28 10:13 | Outpatient (CLI) | payer MEDICARE, OTHER, SELFPAY ==
[2020-02-26 11:00] VITALS: BMI 32.5
--- NOTE | 2020-02-28 10:17 | RAD_ITS ---
STUDY: X-RAY CHEST REASON FOR EXAM: Female, 74 years old. Cough and shortness of breath TECHNIQUE: PA and lateral views of the chest. COMPARISON: 05/23/2019 FINDINGS: There is hyperinflation of the lungs consistent with chronic obstructive lung disease (COPD). The lungs are clear. There is no demonstrated pleural abnormality. Normal size heart. Normal mediastinum and bill. Normal visualized pulmonary arteries. There is atherosclerotic calcification of the aortic arch with tortuosity. Normal visualized thoracic spine. Normal visualized ribs, clavicles, and shoulders. There is no demonstrated abnormality of the visualized soft tissue structures of the upper abdomen. RAD/Chest PA and Lateral IMPRESSION: COPD. The lungs are clear. Electronically Signed: Kiara Hightower, at 11:51 EST Tel , Service support ,
== END ==
PROVIDERS: PCP Internal Medicine; Referring Provider Physician Assistant; Visit Provider Physician Assistant
DX: R06.02 Shortness of breath (principal)
CPT/HCPCS: 71046

== ENCOUNTER 2020-05-31 07:39 | Outpatient (RCR) | payer MEDICARE, OTHER, SELFPAY ==
[2020-02-26 11:00] VITALS: BMI 32.5
[2020-05-31] MEDS: COVID-19 VACC, MRNA(PFIZER)/PF 30 MCG/0.3 ML SYRINGE IM (10:53)
[2020-06-21] MEDS: COVID-19 VACC, MRNA(PFIZER)/PF 30 MCG/0.3 ML SYRINGE IM (10:41)
== END 2020-05-31 23:59 ==
LOC: IMMUN 07:39
PROVIDERS: PCP Internal Medicine; Visit Provider Family Medicine
DX: Z23 Encounter for immunization (principal)
CPT/HCPCS: 0001A; 0002A

== ENCOUNTER 2020-09-30 07:40 | Emergency (ER) | payer MEDICARE, OTHER, SELFPAY ==
[2020-02-26 11:00] VITALS: BMI 32.5
[2020-09-30 07:41] VITALS: BP 164/94; PULSE 94; RESP 18; TEMP 36.3; O2SAT 95; BMI 31.6
[2020-09-30] MEDS: Diphth,Pertuss(Acell),Tet Vac 0.5 ML Vial IM (08:38)
[2020-09-30 08:41] VITALS: BP 156/69; PULSE 80; RESP 18; O2SAT 96
--- NOTE | 2020-09-30 09:04 | EX.ED.GENINJ ---
HPI History of Present Illness Chief Complaint: Laceration Narrative Narrative: Laceration to the left thumb occurred using a circular slicing device at home tetanus is not up-to-date no other complaints Past medical history for diabetes neuropathy fibromyalgia and severe deforming arthritis [facility] Medical History Allergic rhinitis Depressive disorder Diabetes Diabetic neuropathy Dyspepsia Fibromyalgia Hearing loss HTN (hypertension) Hypercholesterolemia Hypothyroidism Insomnia Insomnia Osteoarthritis Rheumatoid arthritis Thyromegaly Varicosities of leg Vitamin D deficiency Home Medications azelastine 0.05 % eye drops 1 drp OPHTHALMIC BID 01/29/18 [History Last Taken Unknown] azelastine 137 mcg (0.1 %) nasal spray aerosol 1 spray INTRANASAL BID 01/29/18 [History Last Taken Unknown] cascara sagrada 450 mg capsule 450 mg PO BID cap 01/29/18 [History Last Taken Unknown] levothyroxine 100 mcg tablet 100 mcg PO DAILY 01/29/18 [History Last Taken Unknown] loratadine 10 mg tablet 10 mg PO DAILY 01/29/18 [History Last Taken Unknown] losartan 50 mg tablet 50 mg PO DAILY 01/29/18 [History Last Taken Unknown] triamterene 37.5 mg-hydrochlorothiazide 25 mg tablet 1 tab PO DAILY 01/29/18 [History Last Taken Unknown] fluticasone propionate 9.9 ml NS BID 02/15/20 [History Last Taken Unknown] amoxicillin 500 mg PO TID 02/17/20 [History Last Taken Unknown] metronidazole 500 mg PO BID 02/17/20 [History Last Taken Unknown] Allergy/AdvReac Type Severity Reaction Status Date / Time aspirin Allergy Intermediate heart Verified 09/30/20 07:43 races, dizziness povidone-iodine Allergy Intermediate rash Verified 09/30/20 07:43 [From Betadine] soap [From Betadine] Allergy Intermediate rash Verified 09/30/20 07:43 amitriptyline Allergy Unknown Unknown Verified 09/30/20 07:43 doxepin Allergy Unknown unknown Verified 09/30/20 07:43 guaifenesin [From Entex LA] Allergy Unknown Unknown Verified 09/30/20 07:43 latex Allergy Unknown Unknown Verified 09/30/20 07:43 phenylephrine [From Entex LA] Allergy Unknown Unknown Verified 09/30/20 07:43 phenylpropanolamine Allergy Unknown Unknown Verified 09/30/20 07:43 [From Entex LA] pseudoephedrine Allergy Unknown Unknown Verified 09/30/20 07:43 Sulfa (Sulfonamide Allergy Unknown Unknown Verified 09/30/20 07:43 Antibiotics) Family History Father Asthma Diabetes High cholesterol Heart disease Hypertension Mother Arthritis Diabetes Heart disease Hypertension Sister Arthritis Lupus Brother Arthritis Surgical History hhistory rectocele repair history hysterectomy and partial salpingectomy Social History (Updated 02/26/20 @ 11:59 by Rowan BONILLA, PA) Smoking Status: Never smoker alcohol intake: never substance use type: does not use ROS ROS ED ROS Narrative Thumb laceration only Constitutional Constitutional ED: Reports subjective, sweats and other; Denies chills, fever(s) or weight loss Eyes Eyes: Denies blurry vision or change in vision ENT ENT ED: Denies ear pain Cardiovascular Cardiovascular: Denies chest pain or palpitations Respiratory/Chest Respiratory/Chest: Denies dyspnea Gastrointestinal Gastrointestinal: Denies abdominal pain, nausea or vomiting Genitourinary Genitourinary ED: Denies dysuria or hematuria Musculoskeletal Musculoskeletal: Denies arthralgias or myalgias Integumentary Reports rash; Denies abscess Neurologic Neurologic: Denies weakness Psychiatric Psychiatric: Denies anxiety or depression Endocrine Endocrinology: Denies polydipsia or polyuria Allergic/Immunologic Allergic/Immunologic ED: Denies urticaria EXAM Physical Exam Narrative Exam Narrative: There is a curvilinear laceration to the left distal thumb does not involve the nail it is attached to be a small pedicle it is slightly dusky, she has basic arthritic deformities of her digits no foreign body exposure or on exam Const Vital Signs: 09/30/20 07:41 09/30/20 08:41 Temperature 97.3 F L Temperature Source Temporal Pulse Rate 94 80 Respiratory Rate 18 18 Blood Pressure 164/94 H 156/69 H Blood Pressure Mean 117 98 Pulse Ox 95 96 Oxygen Delivery Method Room Air Room Air MDM MDM MDM Narrative Medical decision making narrative: Discussed suture repair patient did not wish to have any needle use for her repair she did agree to Steri-Strips area was cleansed irrigated and then closed with Steri-Strips observed her with the dressings intact no other issues discussed wound care with her again she does not wish to have a tetanus she will reconsider she will follow with outpatient providers for the management, we discussed the concept of poor healing that is attached via pedicle and the need for outpatient management Home stable final impression 1 cm curvilinear laceration distal thumb Discharge Plan Triage Chief Complaint: Laceration ED Provider: Chaz Frye Dx/Rx/DC Orders Instructions: ED INFECTED LACERATION Not Sutured Prescriptions: No Action triamterene-hydrochlorothiazid 37.5-25 mg tablet 1 tab PO DAILY RF: 0 losartan 50 mg tablet 50 mg PO DAILY RF: 0 azelastine 137 mcg (0.1 %) aerosol,spray 1 spray INTRANASAL BID RF: 0 azelastine 0.05 % drops 1 drp OPHTHALMIC BID RF: 0 loratadine [Claritin] 10 mg tablet 10 mg PO DAILY RF: 0 cascara sagrada 450 mg capsule 450 mg capsule 450 mg PO BID RF: 0 levothyroxine [Synthroid] 100 mcg tablet 100 mcg PO DAILY RF: 0 fluticasone propionate 9.9 ML spray,suspension 9.9 ml NS BID RF: 0 metronidazole 500 MG tablet 500 mg PO BID RF: 0 amoxicillin 500 MG tablet 500 mg PO TID RF: 0 Primary Care Provider: Su Thomas Referrals: Nando Gonzales MD [STAFF PHYSICIAN] - Su Thomas DO [Primary Care Provider] - Activity Restrictions/Additional Instructions: Dressing every day until seen follow-up with plastic surgery as the wound is very delicate and may not survive take your home meds for pain
[2020-09-30 09:57] VITALS: BP 156/69; PULSE 80; RESP 18; O2SAT 96
== END 2020-09-30 09:58 | disposition home or self-care (01) ==
LOC: ED 08:54
PROVIDERS: Emergency Provider Emergency Medicine; PCP Internal Medicine
DX: S61.012A Laceration without foreign body of left thumb without damage to nail, initial encounter (principal); W26.8XXA Contact with other sharp object(s), not elsewhere classified, initial encounter; Y93.9 Activity, unspecified; Y92.9 Unspecified place or not applicable; I10 Essential (primary) hypertension; E03.9 Hypothyroidism, unspecified; E11.40 Type 2 diabetes mellitus with diabetic neuropathy, unspecified; E78.00 Pure hypercholesterolemia, unspecified; F32.9 Major depressive disorder, single episode, unspecified; G47.00 Insomnia, unspecified; H91.90 Unspecified hearing loss, unspecified ear; M79.7 Fibromyalgia; M06.9 Rheumatoid arthritis, unspecified; Z79.82 Long term (current) use of aspirin; Z79.899 Other long term (current) drug therapy
CPT/HCPCS: 90471; 90715; 99282

== ENCOUNTER 2020-12-18 20:25 | Emergency (ER) | payer MEDICARE, OTHER, SELFPAY ==
[2020-12-18 20:25] VITALS: BP 153/75; PULSE 111; RESP 16; TEMP 36.3; O2SAT 96; BMI 31.1
--- NOTE | 2020-12-18 20:28 | RAD_ITS ---
STUDY: X-RAY CHEST REASON FOR EXAM: Female, 75 years old. Chest pain. Tachycardia. TECHNIQUE: Single AP portable view of the chest. COMPARISON: 02/28/2020. FINDINGS: The lungs are hyperexpanded with chronic interstitial changes. There is no new mass or infiltrate. There is no demonstrated pleural abnormality. Normal size heart. Normal mediastinum and bill. Normal visualized pulmonary arteries. There is atherosclerotic calcification of the aortic arch with tortuosity. The exam Normal visualized ribs, clavicles, and shoulders. There is no demonstrated abnormality of the visualized soft tissue structures of the upper abdomen. RAD/Chest 1 View IMPRESSION: Probable COPD without acute cardiopulmonary disease or interval change. Electronically Signed: Miles Garcia DO at 21:38 EDT Tel [phone], Service support ,
--- NOTE | 2020-12-18 20:28 | EKG12_ITS ---
Test Reason : CP/PALPITATIONS Blood Pressure : / mmHG Vent. Rate : 109 BPM Atrial Rate : 109 BPM P-R Int : 178 ms QRS Dur : 100 ms QT Int : 330 ms P-R-T Axes : 044 026 055 degrees QTc Int : 444 ms Sinus tachycardia Inferior infarct , age undetermined Abnormal ECG Confirmed by JAD PHILLIP, ROMULO ([id number]), editorial intern PRAVIN GOODEN ([id number]) on 12/19/2020 10:57:19 AM Referred By: MR Confirmed By:ROMULO STREET MD
[2020-12-18 20:51] LABS: Absolute Neutrophil Count 5.7 X10^3/uL (2.0-7.7); Basophil# 0.07 X10^3/uL; Basophil% 0.7 % (0-1); Eosinophil# 0.28 X10^3/uL; Eosinophils% 2.8 % (0-5); Hematocrit 44.3 % (37-47); Hemoglobin 14.8 g/dL (12.0-15.0); Lymphocyte % 30.8 % (19-41); Mean Corp Hgb Conc 33.4 g/dL (32-36); Mean Corpuscular Hgb 30.8 pg (27.0-32.0); Mean Corpuscular Volume 92.3 fL (81-99); Mean Platelet Vol. 9.6 fl (6.2-12.0); Monocyte# 0.92 X10^3/uL; Monocyte% 9.1 % (0-10); NRBC Flagged by Analyzer 0 % (0-5); Neutrophil # 5.68 X10^3/uL (2.7-7.7); Neutrophil % 56.3 % (47-70); Platelet Count 318 K/mm3 (150-450); RBC Distribution Width CV 12.5 % (11.6-14.6); RBC Distribution Width SD 42.8 fl (35.1-43.9); White Blood Count 10.1 K/mm3 (4.4-11.0)
[2020-12-18 21:33] VITALS: BP 112/53
--- NOTE | 2020-12-18 21:40 | EDS_ITS ---
HPI History of Present Illness Chief Complaint: Palpitations Narrative Narrative: 75-year-old female presenting with palpitations. She states seizure sitting at home and noticed her palpitations. She thinks that her fastest rhythm with 177. She did not feel near syncopal or lightheaded. She denies any chest pain, pressure, shortness of breath, cough or fever. Patient states otherwise she feels well. She has been eating and drinking normally. She is making normal urine and stool. PFSH PFS Medical History Allergic rhinitis Depressive disorder Diabetes Diabetic neuropathy Dyspepsia Fibromyalgia Hearing loss HTN (hypertension) Hypercholesterolemia Hypothyroidism Insomnia Insomnia Osteoarthritis Rheumatoid arthritis Thyromegaly Varicosities of leg Vitamin D deficiency Home Medications azelastine 0.05 % eye drops 1 drp OPHTHALMIC BID 01/29/18 [History Last Taken Unknown] azelastine 137 mcg (0.1 %) nasal spray aerosol 1 spray INTRANASAL BID 01/29/18 [History Last Taken Unknown] cascara sagrada 450 mg capsule 450 mg PO BID cap 01/29/18 [History Last Taken Unknown] levothyroxine 100 mcg tablet 100 mcg PO DAILY 01/29/18 [History Last Taken Unknown] loratadine 10 mg tablet 10 mg PO DAILY 01/29/18 [History Last Taken Unknown] losartan 50 mg tablet 50 mg PO DAILY 01/29/18 [History Last Taken Unknown] triamterene 37.5 mg-hydrochlorothiazide 25 mg tablet 1 tab PO DAILY 01/29/18 [History Last Taken Unknown] fluticasone propionate 9.9 ml NS BID 02/15/20 [History Last Taken Unknown] amoxicillin 500 mg PO TID 02/17/20 [History Last Taken Unknown] metronidazole 500 mg PO BID 02/17/20 [History Last Taken Unknown] Allergy/AdvReac Type Severity Reaction Status Date / Time aspirin Allergy Intermediate heart Verified 12/18/20 20:28 races, dizziness povidone-iodine Allergy Intermediate rash Verified 12/18/20 20:28 [From Betadine] soap [From Betadine] Allergy Intermediate rash Verified 12/18/20 20:28 amitriptyline Allergy Unknown Unknown Verified 12/18/20 20:28 doxepin Allergy Unknown unknown Verified 12/18/20 20:28 guaifenesin [From Entex LA] Allergy Unknown Unknown Verified 12/18/20 20:28 latex Allergy Unknown Unknown Verified 12/18/20 20:28 phenylephrine [From Entex LA] Allergy Unknown Unknown Verified 12/18/20 20:28 phenylpropanolamine Allergy Unknown Unknown Verified 12/18/20 20:28 [From Entex LA] pseudoephedrine Allergy Unknown Unknown Verified 12/18/20 20:28 Sulfa (Sulfonamide Allergy Unknown Unknown Verified 12/18/20 20:28 Antibiotics) Family History Father Asthma Diabetes High cholesterol Heart disease Hypertension Mother Arthritis Diabetes Heart disease Hypertension Sister Arthritis Lupus Brother Arthritis Surgical History hhistory rectocele repair history hysterectomy and partial salpingectomy Social History Smoking Status: Never smoker alcohol intake: never substance use type: does not use ROS ROS ED Constitutional Constitutional ED: Denies chills or fever(s) Eyes Eyes: Denies blurry vision or change in vision ENT ENT ED: Denies rhinorrhea or sore throat Cardiovascular Cardiovascular: Reports palpitations; Denies chest pain Respiratory/Chest Respiratory/Chest: Denies cough or dyspnea Gastrointestinal Gastrointestinal: Denies abdominal pain or nausea Genitourinary Genitourinary ED: Denies dysuria or hematuria Musculoskeletal Musculoskeletal: Denies arthralgias or myalgias Integumentary Denies rash EXAM Physical Exam Const Vital Signs: 12/18/20 20:25 12/18/20 21:33 12/18/20 22:39 Temperature 97.3 F L Temperature Source Temporal Pulse Rate 111 H 86 Respiratory Rate 16 17 Blood Pressure 153/75 H 112/53 L 134/69 H Blood Pressure Mean 101 72 90 Pulse Ox 96 95 Oxygen Delivery Method Room Air Room Air 12/18/20 23:13 Temperature Temperature Source Pulse Rate 92 Respiratory Rate 18 Blood Pressure 136/65 H Blood Pressure Mean 88 Pulse Ox 92 Oxygen Delivery Method Room Air Positive well nourished General Appearance ED: NAD HEENT Reports moist mucous membranes Eyes PERRL and EOMs intact bilaterally Chest Wall inspection of chest normal and palpation of chest normal Resp normal respiratory effort and clear to auscultation bilaterally Cardio regular rate Rate: tachycardic Extremity normal to inspection General Extremety ED: Yes tenderness Neuro oriented x3 and CN's II-XII intact bilaterally Sensorium / Orientation: alert Psych mental status grossly normal Skin no rashes or lesions noted and no wounds MDM MDM MDM Narrative Medical decision making narrative: Patient presenting with palpitations. She is denying any chest pain. She states the palpitations have resolved. She was concerned that her heart rate may be of about 177. She does not have shortness of breath, fever, cough. Patient's EKG on my interpretation shows a sinus tachycardia with a ventricular rate of 109 bpm. When comparing her EKG to previous there appears to be some subtle depressions in the lateral leads which were not there previously. There are no ST elevations. Chest x-ray my interpretation shows no acute cardiopulmonary process and the radiologist does agree patient CBC is normal. Unfortunately the patient initial blood draw was partially hemolyzed and needed to be redrawn. This included the troponin and the BMP. This was redrawn but will delay the delta troponin. Patient will be signed out to incoming ED physician for monitoring and follow-up on troponins as well as disposition. Impression: 1. Palpitations Lab Data Labs: Laboratory Results - last 24 hr 12/18/20 12/18/20 20:39 20:39 WBC 10.1 RBC 4.80 Hgb 14.8 Hct 44.3 MCV 92.3 MCH 30.8 MCHC 33.4 RDW Std Deviation 42.8 RDW Coeff of Manas 12.5 Plt Count 318 MPV 9.6 Immature Gran % (Auto) 0.300 Neut % (Auto) 56.3 Lymph % (Auto) 30.8 [place]ill % (Auto) 9.1 Eos % (Auto) 2.8 Baso % (Auto) 0.7 Absolute Neuts (auto) 5.7 Absolute Lymphs (auto) 3.10 Nucleated RBC % 0 Sodium Cancelled Potassium Cancelled Chloride Cancelled Carbon Dioxide Cancelled Anion Gap Cancelled BUN Cancelled Creatinine Cancelled Estim Creat Clear Calc Cancelled Est GFR (MDRD) Af Amer Cancelled Est GFR (MDRD) Non-Af Cancelled BUN/Creatinine Ratio Cancelled Glucose Cancelled Calcium Cancelled Troponin I High Sens Cancelled Radiography Diagnostic Testing: Radiology Impression Chest X-Ray 12/18/20 20:28 IMPRESSION: Probable COPD without acute cardiopulmonary disease or interval change. Electronically Signed: Miles Garcia DO at 21:38 EDT Tel [phone], Service support , Discharge Plan Triage Chief Complaint: Palpitations ED Provider: Sreekanth Law Dx/Rx/DC Orders Prescriptions: No Action triamterene-hydrochlorothiazid 37.5-25 mg tablet 1 tab PO DAILY RF: 0 losartan 50 mg tablet 50 mg PO DAILY RF: 0 azelastine 137 mcg (0.1 %) aerosol,spray 1 spray INTRANASAL BID RF: 0 azelastine 0.05 % drops 1 drp OPHTHALMIC BID RF: 0 loratadine [Claritin] 10 mg tablet 10 mg PO DAILY RF: 0 cascara sagrada 450 mg capsule 450 mg capsule 450 mg PO BID RF: 0 levothyroxine [Synthroid] 100 mcg tablet 100 mcg PO DAILY RF: 0 fluticasone propionate 9.9 ML spray,suspension 9.9 ml NS BID RF: 0 metronidazole 500 MG tablet 500 mg PO BID RF: 0 amoxicillin 500 MG tablet 500 mg PO TID RF: 0 Primary Care Provider: Su Thomas
[2020-12-18 22:39] VITALS: BP 134/69; PULSE 86; RESP 17; O2SAT 95
[2020-12-18 23:13] VITALS: BP 136/65; PULSE 92; RESP 18; O2SAT 92
[2020-12-19 00:23] LABS: Anion Gap 9 (5-15); BUN 24 mg/dL (7-18); BUN/Creat Ratio 22.9 RATIO (10-20); Calcium,Total 9.4 mg/dL (8.5-10.1); Chloride 101 mmol/L (98-107); Creatinine, Serum 1.05 mg/dL (0.55-1.02); EST Glomerular Filtration Rate 54 mL/min (>60); Est Glom Filt Rate - Afr Amer 65 mL/min (>60); Estimated Creatinine Clearance 33.86 ml/min; Glucose 306 mg/dL (74-106); Potassium 4.1 mmol/L (3.5-5.1); Sodium Level 134 mmol/L (136-145); Troponin-I HS 1508 pg/mL (3.0-54.0)
[2020-12-19 00:47] VITALS: BP 117/65; PULSE 88; RESP 19; O2SAT 96
--- NOTE | 2020-12-19 01:26 | ED.RN ---
PT was educated about admission, chest pain and cardiac enzymes by myself and Dr. Zapata. Pt refuses admission, she is worried about home finances with the additional bills from this admission. PT left AMA and stated she would come back if pain/palpitations worsened. She was pain free at discharge.
[2020-12-19 01:37] LABS: Troponin-I HS 2723 pg/mL (3.0-54.0)
== END 2020-12-19 01:28 | disposition left against medical advice (07) ==
PROVIDERS: Student in an Organized Health Care Education/Training Program; Emergency Provider Emergency Medicine; PCP Internal Medicine
DX: R00.0 Tachycardia, unspecified (principal); R00.2 Palpitations; E03.9 Hypothyroidism, unspecified; I10 Essential (primary) hypertension; E11.40 Type 2 diabetes mellitus with diabetic neuropathy, unspecified; E78.00 Pure hypercholesterolemia, unspecified; F32.9 Major depressive disorder, single episode, unspecified; G47.00 Insomnia, unspecified; M06.9 Rheumatoid arthritis, unspecified; Z79.899 Other long term (current) drug therapy
CPT/HCPCS: 71045; 80048; 84484; 85025; 93005; A4216

== ENCOUNTER 2020-12-19 13:39 | Inpatient (IN) | payer MEDICARE, OTHER, SELFPAY ==
[2020-12-19] VITALS (7 sets, daily range): BP systolic 133–153; BP diastolic 68–87; PULSE 73–98; RESP 16–18; TEMP 36.6–37; O2SAT 96–97; BMI 30.6; BMI 31.2
--- NOTE | 2020-12-19 14:38 | EKG12_ITS ---
Test Reason : NSTEMI ON 12-18-20 Blood Pressure : / mmHG Vent. Rate : 079 BPM Atrial Rate : 079 BPM P-R Int : 172 ms QRS Dur : 106 ms QT Int : 370 ms P-R-T Axes : 059 032 038 degrees QTc Int : 424 ms Normal sinus rhythm Normal ECG Confirmed by MARA PHILLIP, AGUEDA ([id number]), film editor PRAVIN GOODEN ([id number]) on 12/21/2020 1:11:42 PM Referred By: BONI Confirmed By:JAMEL TERRY MD
[2020-12-19 14:49] LABS: Absolute Lymphocyte Count 2.22 X10^3/uL (0.83-4.51); Absolute Neutrophil Count 5.6 X10^3/uL (2.0-7.7); Basophil# 0.05 X10^3/uL; Basophil% 0.6 % (0-1); Eosinophils% 1.1 % (0-5); Hemoglobin 14.1 g/dL (12.0-15.0); Lymphocyte # 2.22 X10^3/ul (0.83-4.51); Lymphocyte % 24.9 % (19-41); Mean Corp Hgb Conc 32.8 g/dL (32-36); Mean Corpuscular Hgb 30.5 pg (27.0-32.0); Mean Corpuscular Volume 93.1 fL (81-99); Mean Platelet Vol. 9.4 fl (6.2-12.0); Monocyte# 0.96 X10^3/uL; Monocyte% 10.8 % (0-10); NRBC Flagged by Analyzer 0 % (0-5); Neutrophil # 5.55 X10^3/uL (2.7-7.7); Neutrophil % 62.3 % (47-70); Platelet Count 353 K/mm3 (150-450); RBC Distribution Width CV 12.7 % (11.6-14.6); RBC Distribution Width SD 43.3 fl (35.1-43.9); Red Blood Count 4.62 M/mm3 (4.2-5.4); White Blood Count 8.9 K/mm3 (4.4-11.0)
[2020-12-19 15:07] LABS: Anion Gap 6 (5-15); BUN 23 mg/dL (7-18); Calcium,Total 9.8 mg/dL (8.5-10.1); Chloride 103 mmol/L (98-107); EST Glomerular Filtration Rate 57 mL/min (>60); Est Glom Filt Rate - Afr Amer 69 mL/min (>60); Estimated Creatinine Clearance 35.55 ml/min; Glucose 245 mg/dL (74-106); Potassium 4.3 mmol/L (3.5-5.1); Sodium Level 134 mmol/L (136-145); Troponin-I HS 2188 pg/mL (3.0-54.0)
--- NOTE | 2020-12-19 15:19 | EX.ED.DYSGE1 ---
HPI History of Present Illness Chief Complaint: Chest Pain Informant: patient Onset/Context/Timing Onset: Yesterday Context: Sudden Onset Timing: Intermittent (once she thinks) Quality: racing HB Location: chest Current Severity: Gone Maximum Severity: Severe Worsened by: nothing Relieved by: nothing, went away on its own Associated Symptoms Associated Symptoms: denies presyncope, cp, sob Narrative Narrative: Patient was seen here yesterday for palpitations racing heartbeat, she had some ischemic ST depressions on her EKG and an abnormal troponin and left AGAINST MEDICAL ADVICE. She has been feeling fine since, and was convinced to return to the hospital today. She has had no recurrent symptoms today over since she left the hospital yesterday. She does not follow with cardiology nor does she have history of any cardiac disease that she knows of. [facility] Medical History Allergic rhinitis Depressive disorder Diabetes Diabetic neuropathy Dyspepsia Essential hypertension Fibromyalgia Hearing loss History of tachycardia Hyperlipidemia Hypothyroidism Insomnia Insomnia Neuropathy Osteoarthritis Rheumatoid arthritis Tachycardia Thyromegaly Varicosities of leg Vitamin D deficiency Home Medications azelastine 0.05 % eye drops 1 drp OPHTHALMIC BID 01/29/18 [History Last Taken Unknown] azelastine 137 mcg (0.1 %) nasal spray aerosol 1 spray INTRANASAL BID 01/29/18 [History Last Taken Unknown] levothyroxine 100 mcg tablet 100 mcg PO DAILY 01/29/18 [History Last Taken Unknown] loratadine 10 mg tablet 10 mg PO DAILY 01/29/18 [History Last Taken Unknown] losartan 50 mg tablet 50 mg PO DAILY 01/29/18 [History Last Taken Unknown] triamterene 37.5 mg-hydrochlorothiazide 25 mg tablet 1 tab PO DAILY 01/29/18 [History Last Taken Unknown] cascara sagrada 450 mg PO BID 12/19/20 [History Last Taken 12/18/20] fluticasone propionate 1 - 2 spray INTRANASAL DAILY 12/19/20 [History Last Taken 12/19/20] levothyroxine 50 mcg PO QODAY 12/19/20 [History Last Taken 12/18/20] montelukast 5 mg PO DAILY 12/19/20 [History Last Taken 12/19/20] Allergy/AdvReac Type Severity Reaction Status Date / Time aspirin Allergy Intermediate heart Verified 12/19/20 13:41 races, dizziness povidone-iodine Allergy Intermediate rash Verified 12/19/20 13:41 [From Betadine] soap [From Betadine] Allergy Intermediate rash Verified 12/19/20 13:41 amitriptyline Allergy Unknown Unknown Verified 12/19/20 13:41 doxepin Allergy Unknown unknown Verified 12/19/20 13:41 guaifenesin [From Entex LA] Allergy Unknown Unknown Verified 12/19/20 13:41 latex Allergy Unknown Unknown Verified 12/19/20 13:41 phenylephrine [From Entex LA] Allergy Unknown Unknown Verified 12/19/20 13:41 phenylpropanolamine Allergy Unknown Unknown Verified 12/19/20 13:41 [From Entex LA] pseudoephedrine Allergy Unknown Unknown Verified 12/19/20 13:41 Sulfa (Sulfonamide Allergy Unknown Unknown Verified 12/19/20 13:41 Antibiotics) Family History Father Asthma Diabetes High cholesterol Heart disease Hypertension Mother Arthritis Diabetes Heart disease Hypertension Sister Arthritis Lupus Brother Arthritis Surgical History History of hysterectomy History of repair of rectocele Social History Smoking Status: Never smoker alcohol intake: never substance use type: does not use ROS ROS ED Constitutional Constitutional ED: Denies chills or fever(s) Eyes Eyes: Denies change in vision or diplopia ENT ENT ED: Denies rhinorrhea or sore throat Cardiovascular Cardiovascular: Reports as per HPI and palpitations; Denies chest pain Respiratory/Chest Respiratory/Chest: Denies cough or dyspnea Gastrointestinal Gastrointestinal: Denies abdominal pain, diarrhea, nausea or vomiting Genitourinary Genitourinary ED: Denies dysuria or hematuria Musculoskeletal Musculoskeletal: Denies back pain or neck pain Integumentary Denies abscess or rash Neurologic Neurologic: Denies headache(s), paresthesias or weakness Psychiatric Psychiatric: Denies anxiety or suicidal thoughts EXAM Physical Exam Const Vital Signs: 12/19/20 13:39 12/19/20 15:00 Temperature 97.8 F Temperature Source Temporal Pulse Rate 76 73 Respiratory Rate 18 16 Respiratory Effort Normal Non-Labored Blood Pressure 133/69 H 153/81 H Blood Pressure Mean 90 105 Pulse Ox 97 96 Oxygen Delivery Method Room Air Room Air Positive well nourished and well developed General Appearance ED: well developed and NAD HEENT Reports moist mucous membranes normocephalic and atraumatic Eyes PERRL and EOMs intact bilaterally Neck full ROM and supple Resp normal respiratory effort and clear to auscultation bilaterally Cardio regular rate, regular rhythm and no murmurs GI non-tender and non-distended Auscultation: normoactive bowel sounds Palpation: soft Back/Spine no CVA tenderness General Back: other FROM Extremity normal to inspection General Extremety ED: Negative for edema, pulses abnormal or tenderness General Extremity: Negative for edema or pulses abnormal Neuro oriented x3, CN's II-XII intact bilaterally and no sensory deficits noted Sensorium / Orientation: awake and alert Motor Exam: strength 5/5 throughout Skin no rashes or lesions noted and no wounds MDM MDM MDM Narrative Medical decision making narrative: Troponin is higher today than it was yesterday. Her EKG shows no signs of acute ischemia at this time. She was given clopidogrel 300 mg since the patient declares an allergy to aspirin. She maintains clinical and hemodynamic stability. Discussed with hospitalist for PCU admission. Lab Data Attestation: I reviewed the patient's lab results. Labs: Laboratory Results - last 24 hr 12/19/20 12/19/20 14:10 14:10 WBC 8.9 RBC 4.62 Hgb 14.1 Hct 43.0 MCV 93.1 MCH 30.5 MCHC 32.8 RDW Std Deviation 43.3 RDW Coeff of Manas 12.7 Plt Count 353 MPV 9.4 Immature Gran % (Auto) 0.300 Neut % (Auto) 62.3 Lymph % (Auto) 24.9 [place]ting[place] % (Auto) 10.8 H Eos % (Auto) 1.1 Baso % (Auto) 0.6 Absolute Neuts (auto) 5.6 Absolute Lymphs (auto) 2.22 Nucleated RBC % 0 Sodium 134 L Potassium 4.3 Chloride 103 Carbon Dioxide 25.0 Anion Gap 6 BUN 23 H Creatinine 1.00 Estim Creat Clear Calc 35.55 Est GFR (MDRD) Af Amer 69 Est GFR (MDRD) Non-Af 57 L BUN/Creatinine Ratio 23.0 H Glucose 245 H Calcium 9.8 Troponin I High Sens 2188 H* EKG Initial EKG: Attestation: I personally reviewed and interpreted this EKG as follows: Interpretation: Sinus Rhythm and No Acute Injury Pattern (Normal EKG) Prior EKG tracings: available for review Prior: Changed (Resolution of lateral ST depressions) Discharge Plan Dx/Rx/DC Orders Clinical Impression: Non-ST elevation MN (NSTEMI), Palpitations Disposition Disposition: Acute Care Hospital [facility]
--- NOTE | 2020-12-19 16:19 | PCM.HP.STD ---
Documented by User: SOFIA Pierre 12/19/20 16:46 HPI - General General Date of Admission: 12/19/20 Date of Service: 12/19/20 Chief Complaint: Rapid heart rate, chest pain HPI Narrative CHIRAG RUFFIN, is a 75 F who presents to the ER with complaints of palpitations and chest pain. Patient was seen in the ER yesterday where patient was informed that she had abnormal troponin and EKG changes patient patient left AGAINST MEDICAL ADVICE that she was feeling fine. Patient returned to the ER today due to continued intermittent racing heartbeat. Patient denies any cardiac history however patient states that her father at 57 from an acute [place]. Patient denies fever, chills, shortness of breath, cough, nausea, vomiting. [facility] Medical History Allergic rhinitis Depressive disorder Diabetes Diabetic neuropathy Dyspepsia Essential hypertension Fibromyalgia Hearing loss History of tachycardia Hyperlipidemia Hypothyroidism Insomnia Insomnia Neuropathy Osteoarthritis Rheumatoid arthritis Tachycardia Thyromegaly Varicosities of leg Vitamin D deficiency Home Medications azelastine 0.05 % eye drops 1 drp OPHTHALMIC BID 01/29/18 [History Last Taken 12/19/20] azelastine 137 mcg (0.1 %) nasal spray aerosol 1 spray INTRANASAL BID 01/29/18 [History Last Taken 12/19/20] levothyroxine 100 mcg tablet 100 mcg PO QODAY 01/29/18 [History Last Taken 12/19/20] loratadine 10 mg tablet 10 mg PO DAILY 01/29/18 [History Last Taken 12/18/20] losartan 50 mg tablet 50 mg PO DAILY 01/29/18 [History Last Taken 12/18/20] triamterene 37.5 mg-hydrochlorothiazide 25 mg tablet 1 tab PO DAILY 01/29/18 [History Last Taken 12/18/20] cascara sagrada 450 mg PO BID 12/19/20 [History Last Taken 12/18/20] fluticasone propionate 1 - 2 spray INTRANASAL DAILY 12/19/20 [History Last Taken 12/19/20] levothyroxine 50 mcg PO QODAY 12/19/20 [History Last Taken 12/18/20] montelukast 5 mg PO DAILY 12/19/20 [History Last Taken 12/19/20] Allergy/AdvReac Type Severity Reaction Status Date / Time aspirin Allergy Intermediate heart Verified 12/19/20 13:41 races, dizziness povidone-iodine Allergy Intermediate rash Verified 12/19/20 13:41 [From Betadine] soap [From Betadine] Allergy Intermediate rash Verified 12/19/20 13:41 amitriptyline Allergy Unknown Unknown Verified 12/19/20 13:41 doxepin Allergy Unknown unknown Verified 12/19/20 13:41 guaifenesin [From Entex LA] Allergy Unknown Unknown Verified 12/19/20 13:41 latex Allergy Unknown Unknown Verified 12/19/20 13:41 phenylephrine [From Entex LA] Allergy Unknown Unknown Verified 12/19/20 13:41 phenylpropanolamine Allergy Unknown Unknown Verified 12/19/20 13:41 [From Entex LA] pseudoephedrine Allergy Unknown Unknown Verified 12/19/20 13:41 Sulfa (Sulfonamide Allergy Unknown Unknown Verified 12/19/20 13:41 Antibiotics) Family History Father Asthma Diabetes High cholesterol Heart disease Hypertension Mother Arthritis Diabetes Heart disease Hypertension Sister Arthritis Lupus Brother Arthritis Surgical History History of hysterectomy History of repair of rectocele Social History Smoking Status: Never smoker alcohol intake: never substance use type: does not use ROS Constitutional Constitutional: Reports fatigue; Denies anorexia, chills, fever(s), malaise or weakness Cardiovascular Cardiovascular: Reports chest pain and palpitations; Denies edema or syncope Respiratory/Chest Respiratory/Chest: Denies cough, shortness of breath at rest or shortness of breath with exertion Gastrointestinal Gastrointestinal: Denies abdominal pain, constipation, diarrhea, nausea or vomiting Genitourinary Genitourinary: Reports dysuria Musculoskeletal Musculoskeletal: Reports joint pain; Denies back pain, extremity pain or joint stiffness Integumentary Integumentary: Denies dry skin Neurologic Neurologic: Denies abnormal gait, abnormal speech, confusion or dizziness Psychiatric Psychiatric: Denies anxiety or depression Endocrine Endocrinology: Denies change in body appearance Hematologic/Lymphatic Hematologic/Lymphatic: Denies anemia, easy bleeding or easy bruising Vital Signs Vital Signs Vital Signs: 12/19/20 13:39 12/19/20 15:00 Temperature 97.8 F Temperature Source Temporal Pulse Rate 76 73 Respiratory Rate 18 16 Respiratory Effort Normal Non-Labored Blood Pressure 133/69 H 153/81 H Blood Pressure Mean 90 105 Pulse Ox 97 96 Oxygen Delivery Method Room Air Room Air Weight Weight: 162 lb Body Mass Index (BMI) 30.6 Physical Exam Const alert, oriented x3 and no apparent distress General Appearance: cooperative HEENT normocephalic and head/scalp atraumatic Eyes conjunctivae normal and no scleral icterus Neck supple and no JVD General: trachea midline Resp normal respiratory effort, normal air movement and clear to auscultation bilaterally Cardio regular rate, regular rhythm, S1 normal heart sound, S2 normal heart sound and peripheral pulses 2+ throughout GI normal to inspection, nondistended, normoactive bowel sounds, soft to palpation and non-tender Extremity normal capillary refill and no clubbing, cyanosis or edema General Extremity: no tenderness to palpation of joints or extremities Skin General Skin Exam: no breakdown and turgor normal Lesions: no lesions Rashes: no rashes Neuro no focal motor deficits and no sensory deficits noted Speech: speech abnormal Motor Exam: Negative for general weakness Psych thought process normal, cooperative and affect normal Appearance: appropriate Results Lab / Micro Data Result Diagrams: 12/19/20 14:10 12/19/20 14:10 Labs: Laboratory Results - last 24 hr 12/19/20 14:10: Sodium 134 L, Potassium 4.3, Chloride 103, Carbon Dioxide 25.0, Anion Gap 6, BUN 23 H, Creatinine 1.00, Estim Creat Clear Calc 35.55, Est GFR (MDRD) Af Amer 69, Est GFR (MDRD) Non-Af 57 L, BUN/Creatinine Ratio 23.0 H, Glucose 245 H, Calcium 9.8, Troponin I High Sens 2188 H* 12/19/20 14:10: WBC 8.9, RBC 4.62, Hgb 14.1, Hct 43.0, MCV 93.1, MCH 30.5, MCHC 32.8, RDW Std Deviation 43.3, RDW Coeff of Manas 12.7, Plt Count 353, MPV 9.4, Immature Gran % (Auto) 0.300, Neut % (Auto) 62.3, Lymph % (Auto) 24.9, Osborne % (Auto) 10.8 H, Eos % (Auto) 1.1, Baso % (Auto) 0.6, Absolute Neuts (auto) 5.6, Absolute Lymphs (auto) 2.22, Nucleated RBC % 0 Assessment & Plan Assessment/Plan (1) Non-ST elevation [place] (NSTEMI): PLAN: 1. Non-STEMI -Admit to PCU for cardiac monitoring, JESICA 4, HEART 7. -Trend cardiac enzymes, troponin trending down in comparison from values obtained yesterday during ER visit prior to patient leaving AMA -Consult cardiology, case discussed with Dr. Xiao per ER physician -Stress test ordered for a.m. -CBC, BMP, lipid panel, TSH ordered for a.m. Magnesium level ordered stat -Daily weights -Cardiac diet ordered, n.p.o. at midnight for pending stress test -Echo ordered -PT and OT to eval and treat -EKG for a.m. ordered 2. Hypertension -Continue home medications regimen -Vital signs per protocol, trend BP 3. Diabetes mellitus type 2 -Patient states she is not on any medications at home and controls blood sugars with diet and exercise however patient noted to be in 200s upon arrival and glucose was 300 previous day -AC at bedtime blood sugars with sliding scale insulin ordered 4. Hypothyroidism -Due to patient report of palpitations and increased heart rate will obtain TSH at morning -Continue levothyroxine DVT prophylaxis-subcu Lovenox This patient was seen by IKE PierreC under the supervision of Dr. Graves. Documented by User: Dr. John Graves MD 12/19/20 17:08 HPI - General General Date of Admission: 12/19/20 HPI Narrative This 75-year-old female came to ER yesterday for palpitation. She said her heart rate in the range of 170s for 2 hours started about 7 PM yesterday after supper. She had also mild shortness of breath but denies any chest pain. She came to ER yesterday and was found to have high troponin but she signed AMA. Today, she was told by cardiology office to come to ER for further assessment. Twelve-lead EKG done yesterday shows sinus tachycardia at 109 bpm, old Q waves inferior leads, age undetermined with slight ST depression in 1 and aVL. Today's EKG is similar except normal sinus rhythm. QTC 424 ms. Patient states he follows Dr. Xiao but I do not see any office note. She said she had prior pharmacological nuclear stress test but is not in our system. Denies any prior heart cath/cardiac stent. Denies any history of chronic A. fib or CHF. Denies history of smoking. Troponin was found high, 1508, 2723 and 2188. Patient given 300 mg of Plavix as she is allergic to aspirin. 1 dose of Lovenox Ordered. [facility] Medical History Allergic rhinitis Depressive disorder Diabetes Diabetic neuropathy Dyspepsia Essential hypertension Fibromyalgia Hearing loss History of tachycardia Hyperlipidemia Hypothyroidism Insomnia Insomnia Neuropathy Osteoarthritis Rheumatoid arthritis Tachycardia Thyromegaly Varicosities of leg Vitamin D deficiency Home Medications azelastine 0.05 % eye drops 1 drp OPHTHALMIC BID 01/29/18 [History Last Taken 12/19/20] azelastine 137 mcg (0.1 %) nasal spray aerosol 1 spray INTRANASAL BID 01/29/18 [History Last Taken 12/19/20] levothyroxine 100 mcg tablet 100 mcg PO QODAY 01/29/18 [History Last Taken 12/19/20] loratadine 10 mg tablet 10 mg PO DAILY 01/29/18 [History Last Taken 12/18/20] losartan 50 mg tablet 50 mg PO DAILY 01/29/18 [History Last Taken 12/18/20] triamterene 37.5 mg-hydrochlorothiazide 25 mg tablet 1 tab PO DAILY 01/29/18 [History Last Taken 12/18/20] cascara sagrada 450 mg PO BID 12/19/20 [History Last Taken 12/18/20] fluticasone propionate 1 - 2 spray INTRANASAL DAILY 12/19/20 [History Last Taken 12/19/20] levothyroxine 50 mcg PO QODAY 12/19/20 [History Last Taken 12/18/20] montelukast 5 mg PO DAILY 12/19/20 [History Last Taken 12/19/20] Allergy/AdvReac Type Severity Reaction Status Date / Time aspirin Allergy Intermediate heart Verified 12/19/20 13:41 races, dizziness povidone-iodine Allergy Intermediate rash Verified 12/19/20 13:41 [From Betadine] soap [From Betadine] Allergy Intermediate rash Verified 12/19/20 13:41 amitriptyline Allergy Unknown Unknown Verified 12/19/20 13:41 doxepin Allergy Unknown unknown Verified 12/19/20 13:41 guaifenesin [From Entex LA] Allergy Unknown Unknown Verified 12/19/20 13:41 latex Allergy Unknown Unknown Verified 12/19/20 13:41 phenylephrine [From Entex LA] Allergy Unknown Unknown Verified 12/19/20 13:41 phenylpropanolamine Allergy Unknown Unknown Verified 12/19/20 13:41 [From Entex LA] pseudoephedrine Allergy Unknown Unknown Verified 12/19/20 13:41 Sulfa (Sulfonamide Allergy Unknown Unknown Verified 12/19/20 13:41 Antibiotics) Family History Father Asthma Diabetes High cholesterol Heart disease Hypertension Mother Arthritis Diabetes Heart disease Hypertension Sister Arthritis Lupus Brother Arthritis Surgical History History of hysterectomy History of repair of rectocele Social History Smoking Status: Never smoker alcohol intake: never substance use type: does not use Physical Exam Narrative General: Alert, Oriented x3, Cooperative HEENT: Atraumatic, PERRLA, EOMI, Normocephalic Oral: No Gingival or Mucosal Lesions/ Ulcerations Neck: Supple, No JVD, Negative Carotid Bruits Lungs: Air entry equal in bilateral lung bases. No crepitation/rhonchi. Cardiovascular: Sinus arrhythmia, Normal S1, Normal S2, No murmurs Abdomen: Bowel Sounds Present, Soft, Non Tender, Non-Distended : No renal angle tenderness. No suprapubic tenderness. Extremities: No edema, Capillary Refill Less than 3 Seconds Skin: No rashes, No breakdown Musculoskeletal: No Tenderness to Palpation of Joints or Extremities Neurological: Cranial nerves II-XII grossly intact, DTR 2+/4 and Symmetrical, Neuro grossly intact Psych/Mental Status: Normal Affect, Appropriate. Results Lab / Micro Data Result Diagrams: 12/19/20 14:10 12/19/20 14:10 Assessment & Plan Assessment/Plan (1) Non-ST elevation [place] (NSTEMI): PLAN: This patient was seen in conjunction with YORDY Fowler. I have independently interviewed and examined the patient and reviewed pertinent history, examination findings, laboratory and plan of management. I have reviewed the note and agree with the documented findings with the few additional points. In brief, patient is 75-year-old female with history of hypertension and diabetes mellitus type 2 came to ER for evaluation of high troponin after she had palpitation with clinical diagnosis of non-STEMI. Patient is being admitted in PCU on telemetry. [employer] Officer consulted. JESICA risk is 3. Started on loading dose of Plavix and Lovenox 1 dose. 2D echo is ordered. Other orders as mentioned above. Patient has a comorbidities of diabetes mellitus type 2 complicated with diabetic neuropathy left foot, hypertension, hypothyroidism. 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 After discussion of benefits/risks procedures involved with full code, DNR CC arrest and DNR CC, the patient opted for full code. Patient does want artificial life support including intubation, tube feed, ventilator and/chest compression, central venous catheter, vasopressor and DC shock if needed Total time spent in [id number] encounter in discussion of advanced directive 16 minutes. I have discussed my assessment with YORDY Fowler and orders have been reviewed. Charges/Coding Visit Charges Inpatient E&M: 09183 Init Hosp L3 Procedures Hospitalists Procedures: 76940 Advncd Care Plan 30 Min
[2020-12-19] MEDS: Clopidogrel Bisulfate 300 MG Tablet PO (16:42)
--- NOTE | 2020-12-19 17:08 | EKG12_ITS ---
Test Reason : Blood Pressure : / mmHG Vent. Rate : 062 BPM Atrial Rate : 062 BPM P-R Int : 178 ms QRS Dur : 106 ms QT Int : 412 ms P-R-T Axes : 025 017 058 degrees QTc Int : 418 ms Normal sinus rhythm Inferior infarct , age undetermined Abnormal ECG Confirmed by CAM PHILLIP, SPRING ([id number]), videotape editor PRAVIN GOODEN ([id number]) on 12/24/2020 1:48:21 PM Referred By: MARTÍN Confirmed By:SPRING LEVY MD
--- NOTE | 2020-12-19 17:08 | ECHOCS_ITS ---
Reason For Study: CHEST PAIN Procedure This was a 2D Doppler, Color Flow transthoracic echocardiogram. The study was technically difficult. Due to bodyhabitus, exam performed with patient in a reclining position S/P heart cath radial access. Contrast injection was performed. Exam performed in department. Left Ventricle Normal LV size. The estimated ejection fraction is 47 %. Stage 1 diastolic dysfunction. Mild to moderate segmental systolic dysfunction (see wall motion). Mid-Inferior: Akinetic. Infero-Basal: Akinetic. Posterior-Basal: Akinetic. There are regional wall motion abnormalities as specified. Right Ventricle Normal RV size. Normal systolic function. Atria Normal left atrium. Normal right atrium. Mitral Valve Normal mitral valve. Tricuspid Valve Normal tricuspid valve. Aortic Valve Trisinus/trileaflet aortic valve. Great Vessels Normal aortic root. The pulmonary artery is normal size. Normal inferior vena cava. Pericardium/Pleural No pericardial effusion. Medication Diluted definity 4.0ml given slow IV push to enhance endocardial definition. MMode/2D Measurements & Calculations LVIDd: 4.4 cm IVSd: 1.0 cm Ao root diam: 2.7 cm LVIDs: 3.4 cm LVPWd: 0.98 cm RVDd: 3.0 cm FS: 23.6 % LAV(MOD-bp): 46.5 ml LA A4 area: 16.6 cm2 LA dimension(2D): 3.8 cm LAV(MOD-bp) Indexed: 27.0 ml/m2 LAV(MOD-sp2): 45.4 ml LAV(MOD-sp4): 45.4 ml RA A4 area: 10.7 cm2 Time Measurements MV dec time: 0.28 sec Doppler Measurements & Calculations MV E max jovani: 56.4 cm/sec Lat Peak E' Jovani: 5.0 cm/sec Med Peak E' Jovani: 3.4 cm/sec MV A max jovani: 99.5 cm/sec E/E' lat: 11.3 E/E' med: 16.8 MV E/A: 0.57 Ao V2 max: 152.6 cm/sec LV V1 max: 97.8 cm/sec PA V2 max: 104.1 cm/sec Ao max P.3 mmHg LV V1 max P.8 mmHg ECHO/Echo Complete W/ Contrast Interpretation Summary Normal LV size. The estimated ejection fraction is 47 %. Stage 1 diastolic dysfunction. Mild to moderate segmental systolic dysfunction (see wall motion). Contrast injection was performed. Ordering Physician: Pavel^Janeth^^^PATTERN SETTER-C Referring Physician: Su Thomas Performed By: Verona Ghosh, ADALBERTO, RVT
[2020-12-19] MEDS: Enoxaparin 80 MG/0.8 ML Syringe 70 MG SC (17:34)
[2020-12-19 17:50] LABS: Magnesium 1.9 mg/dL (1.6-2.6)
--- NOTE | 2020-12-19 18:28 | CON.PCM.CA_ITS ---
Assessment & Plan Assessment/Plan (1) Non-ST elevation CO (NSTEMI): PLAN: She presented with palpitations and was noted to have a non-ST elevation myocardial infarction. She has agreed to stay at this time and I did suggest to her that she will need a cardiac catheterization further for definition of her coronary anatomy. The risk benefits and alternatives have been explained to her she understands and agrees to proceed. In the meantime we will start her on the following: Aspirin 81 mg a day Metoprolol 25 mg twice a day. Lipitor 40 mg a day. She will undergo cardiac catheterization in a.m. and depending on the findings further recommendations will be made. (2) Essential hypertension: PLAN: She will be put on a beta-marty for blood pressure control. It is not clear what the palpitations and tachycardia where but we will continue to monitor her to make sure no significant arrhythmias are noted. Thank you for allowing me to participate in the care of your patient. Please don't hesitate to call if any issues arise. HPI Consult Data Date of Consult: 12/19/20 HPI Narrative HPI Narrative: CHIRAG RUFFIN, is a 75 F who presented to the emergency room yesterday with palpitations. She was evaluated and noted to have a mildly abnormal EKG as well as abnormal cardiac enzymes. She had denied any chest pain per se but had complained of some chest heaviness. She was also noted to be mildly short of breath. The decision was made to admit her but she decided to be discharged AGAINST MEDICAL ADVICE. She was told to call the cocoa mill operator in the morning to be seen. She called my office and we directed her back to the emergency room because of the elevated troponins. Her troponins were further elevated when she got to the emergency room. She continued to deny any chest discomfort. She is denied any dizziness or diaphoresis near syncope or syncope. She has not had any recurrence of the tachycardia. Her EKG when she had presented to the emergency room had demonstrated sinus tachycardia with nonsp ecific EKG changes only. [facility] Medical History Allergic rhinitis Depressive disorder Diabetes Diabetic neuropathy Dyspepsia Essential hypertension Fibromyalgia Hearing loss History of tachycardia Hyperlipidemia Hypothyroidism Insomnia Insomnia Neuropathy Osteoarthritis Rheumatoid arthritis Tachycardia Thyromegaly Varicosities of leg Vitamin D deficiency Home Medications azelastine 0.05 % eye drops 1 drp OPHTHALMIC BID 11/02/18 [History Last Taken 12/19/20] azelastine 137 mcg (0.1 %) nasal spray aerosol 1 spray INTRANASAL BID 01/29/18 [History Last Taken 12/19/20] levothyroxine 100 mcg tablet 100 mcg PO QODAY 01/29/18 [History Last Taken 12/19/20] loratadine 10 mg tablet 10 mg PO DAILY 01/29/18 [History Last Taken 12/18/20] losartan 50 mg tablet 50 mg PO DAILY 01/29/18 [History Last Taken 12/18/20] triamterene 37.5 mg-hydrochlorothiazide 25 mg tablet 1 tab PO DAILY 01/29/18 [History Last Taken 12/18/20] cascara sagrada 450 mg PO BID 12/19/20 [History Last Taken 12/18/20] fluticasone propionate 1 - 2 spray INTRANASAL DAILY 12/19/20 [History Last Taken 12/19/20] levothyroxine 50 mcg PO QODAY 12/19/20 [History Last Taken 12/18/20] montelukast 5 mg PO DAILY 12/19/20 [History Last Taken 12/19/20] Allergy/AdvReac Type Severity Reaction Status Date / Time aspirin Allergy Intermediate heart Verified 12/19/20 13:41 races, dizziness povidone-iodine Allergy Intermediate rash Verified 12/19/20 13:41 [From Betadine] soap [From Betadine] Allergy Intermediate rash Verified 12/19/20 13:41 amitriptyline Allergy Unknown Unknown Verified 12/19/20 13:41 doxepin Allergy Unknown unknown Verified 12/19/20 13:41 guaifenesin [From Entex LA] Allergy Unknown Unknown Verified 12/19/20 13:41 latex Allergy Unknown Unknown Verified 12/19/20 13:41 phenylephrine [From Entex LA] Allergy Unknown Unknown Verified 12/19/20 13:41 phenylpropanolamine Allergy Unknown Unknown Verified 12/19/20 13:41 [From Entex LA] pseudoephedrine Allergy Unknown Unknown Verified 12/19/20 13:41 Sulfa (Sulfonamide Allergy Unknown Unknown Verified 12/19/20 13:41 Antibiotics) Family History Father Asthma Diabetes High cholesterol Heart disease Hypertension Mother Arthritis Diabetes Heart disease Hypertension Sister Arthritis Lupus Brother Arthritis Surgical History History of hysterectomy History of repair of rectocele Social History Smoking Status: Never smoker alcohol intake: never substance use type: does not use ROS Constitutional Constitutional: Denies fever(s) or weight loss Eyes Eyes: Reports systems reviewed and no addt'l complaints, except as documented ENT HEENT: Reports systems reviewed and no addt'l complaints, except as documented Cardiovascular Cardiovascular: Reports palpitations; Denies chest pain at rest, chest pain with activity, dyspnea at rest, dyspnea on exertion, edema or paroxysmal nocturnal dyspnea Respiratory/Chest Respiratory/Chest: Denies dyspnea on exertion, productive cough, shortness of breath at rest or shortness of breath with exertion Gastrointestinal Gastrointestinal: Denies change in bowel habits, nausea, vomiting or weight changes Genitourinary Genitourinary: Denies difficulty urinating Musculoskeletal Musculoskeletal: Denies joint stiffness or muscle weakness Integumentary Integumentary: Denies lesions Neurologic Neurologic: Denies dizziness or syncope Psychiatric Psychiatric: Denies anxiety Endocrine Endocrinology: Denies excessive sweating or fatigue Hematologic/Lymphatic Hematologic/Lymphatic: Denies anemia Allergic/Immunologic Allergic/Immunologic: Denies seasonal rhinorrhea Physical Exam Const alert, oriented x3 and no apparent distress General Appearance: cooperative HEENT hearing grossly normal bilaterally Head and Scalp: atraumatic Eyes EOMs intact bilaterally Neck General: normal visual inspection Chest inspection of chest normal and palpation of chest normal Resp normal respiratory effort Auscultation: clear to auscultation bilaterally Cardio regular rate, regular rhythm, S1 normal heart sound and S2 normal heart sound Jugular Venous Distention: JVD GI normal to inspection, nondistended, normoactive bowel sounds Extremity normal capillary refill and no pedal edema Peripheral Pulses: Yes pulses 2+ throughout and femoral pulses present Skin no rashes or lesions noted Neuro oriented x3 and CN's II-XII intact bilaterally Psych Appearance: grossly normal and appropriate Objective Data Vital Signs: Vital Signs Temp Pulse Resp BP Pulse Ox 97.8 F 84 16 152/87 H 97 12/19/20 17:14 12/19/20 17:14 12/19/20 17:14 12/19/20 17:14 12/19/20 17:14 Oxygen Delivery Method Room Air Weight: 165 lb 5.547 oz Body Mass Index (BMI) 31.2 Lab / Micro Data Result Diagrams: 12/19/20 14:10 12/19/20 14:10 Labs: Laboratory Results - last 24 hr 12/19/20 14:10: Sodium 134 L, Potassium 4.3, Chloride 103, Carbon Dioxide 25.0, Anion Gap 6, BUN 23 H, Creatinine 1.00, Estim Creat Clear Calc 35.55, Est GFR (MDRD) Af Amer 69, Est GFR (MDRD) Non-Af 57 L, BUN/Creatinine Ratio 23.0 H, Glucose 245 H, Calcium 9.8, Troponin I High Sens 2188 H* 12/19/20 14:10: WBC 8.9, RBC 4.62, Hgb 14.1, Hct 43.0, MCV 93.1, MCH 30.5, MCHC 32.8, RDW Std Deviation 43.3, RDW Coeff of Manas 12.7, Plt Count 353, MPV 9.4, Immature Gran % (Auto) 0.300, Neut % (Auto) 62.3, Lymph % (Auto) 24.9, [place] % (Auto) 10.8 H, Eos % (Auto) 1.1, Baso % (Auto) 0.6, Absolute Neuts (auto) 5.6, Absolute Lymphs (auto) 2.22, Nucleated RBC % 0 12/19/20 14:10: Magnesium 1.9 Cardiology Labs/Tests 12/19/20 14:10: Sodium 134 L, Potassium 4.3, Chloride 103, Carbon Dioxide 25.0, Anion Gap 6, BUN 23 H, Creatinine 1.00, Est GFR (MDRD) Af Amer 69, Est GFR (MDRD) Non-Af 57 L, BUN/Creatinine Ratio 23.0 H, Glucose 245 H, Calcium 9.8 12/19/20 14:10: WBC 8.9, RBC 4.62, Hgb 14.1, Hct 43.0, MCV 93.1, MCH 30.5, MCHC 32.8, Plt Count 353, MPV 9.4, Immature Gran % (Auto) 0.300, Neut % (Auto) 62.3, Lymph % (Auto) 24.9, Winn % (Auto) 10.8 H, Eos % (Auto) 1.1, Baso % (Auto) 0.6, Absolute Neuts (auto) 5.6, Nucleated RBC % 0 12/19/20 14:10: Magnesium 1.9 Rhythm: EKG: Sinus tachycardia with nonspecific EKG changes ECHO: Stress Test: Cardiac Cath: PCI: CT Surgery: Holter monitor: EPS: PPM: CXR: Chest CT Scan:
[2020-12-19 19:43] LABS: Troponin-I HS 1652 pg/mL (3.0-54.0)
[2020-12-19 21:11] LABS: Bedside Glucose 230 mg/dL (70-110)
[2020-12-19] MEDS: Azelastine HCl NASAL.SRY 1 SPRAY NASAL (21:11)
[2020-12-19] MEDS: Montelukast 10 MG Tablet 5 MG PO (21:12)
[2020-12-19] MEDS: Fluticasone 0.05% 1 SPRAY NASAL.SRY NASAL (21:15)
[2020-12-19 22:03] LABS: Troponin-I HS 1557 pg/mL (3.0-54.0)
[2020-12-20] VITALS (18 sets, daily range): BP systolic 117–152; BP diastolic 50–114; PULSE 62–99; RESP 16–18; TEMP 36.2–36.9; O2SAT 95–98
--- NOTE | 2020-12-20 05:00 | EKG12_ITS ---
Test Reason : NSTEMI ADMISSION Blood Pressure : / mmHG Vent. Rate : 076 BPM Atrial Rate : 076 BPM P-R Int : 164 ms QRS Dur : 108 ms QT Int : 396 ms P-R-T Axes : 058 012 040 degrees QTc Int : 445 ms Normal sinus rhythm Inferior infarct , age undetermined Abnormal ECG Confirmed by CAM PHILLIP, SPRING ([id number]), newspaper managing editor PRAVIN GOODEN ([id number]) on 12/24/2020 1:49:11 PM Referred By: MARTÍN Confirmed By:SPRING LEVY MD
[2020-12-20 05:58] LABS: Absolute Lymphocyte Count 3.06 X10^3/uL (0.83-4.51); Absolute Neutrophil Count 4.1 X10^3/uL (2.0-7.7); Basophil# 0.08 X10^3/uL; Eosinophil# 0.27 X10^3/uL; Eosinophils% 3.2 % (0-5); Hematocrit 41.3 % (37-47); Hemoglobin 13.7 g/dL (12.0-15.0); Lymphocyte # 3.06 X10^3/ul (0.83-4.51); Lymphocyte % 36.3 % (19-41); Mean Corp Hgb Conc 33.2 g/dL (32-36); Mean Corpuscular Hgb 30.8 pg (27.0-32.0); Mean Corpuscular Volume 92.8 fL (81-99); Mean Platelet Vol. 9.2 fl (6.2-12.0); Monocyte# 0.92 X10^3/uL; Monocyte% 10.9 % (0-10); NRBC Flagged by Analyzer 0 % (0-5); Neutrophil # 4.07 X10^3/uL (2.7-7.7); Neutrophil % 48.4 % (47-70); Platelet Count 322 K/mm3 (150-450); RBC Distribution Width CV 12.7 % (11.6-14.6); RBC Distribution Width SD 42.9 fl (35.1-43.9); Red Blood Count 4.45 M/mm3 (4.2-5.4); White Blood Count 8.4 K/mm3 (4.4-11.0)
[2020-12-20] MEDS: 0.9% Saline Lock 10 ML Syringe IV (06:19)
[2020-12-20] MEDS: Losartan Potassium 50 MG Tablet PO (06:21)
[2020-12-20] MEDS: Levothyroxine 50 MCG Tablet PO (06:21)
[2020-12-20] MEDS: 0.9% Normal Saline 1,000 ML 15 ML IV (06:23)
[2020-12-20 06:41] LABS: Anion Gap 6 (5-15); BUN 23 mg/dL (7-18); BUN/Creat Ratio 24.2 RATIO (10-20); Calcium,Total 9.1 mg/dL (8.5-10.1); Chloride 106 mmol/L (98-107); Cholesterol 280 mg/dL (200); Creatinine, Serum 0.95 mg/dL (0.55-1.02); EST Glomerular Filtration Rate 61 mL/min (>60); Est Glom Filt Rate - Afr Amer 73 mL/min (>60); Estimated Creatinine Clearance 37.42 ml/min; Glucose 168 mg/dL (74-106); High Density Lipoprotein 36 mg/dL; Potassium 3.5 mmol/L (3.5-5.1); Sodium Level 136 mmol/L (136-145); Thyroid Stim Hormone (TSH) 3.22 uIU/mL (0.358-3.74); Triglycerides 490 mg/dL
[2020-12-20 06:50] LABS: Bedside Glucose 159 mg/dL (70-110)
--- NOTE | 2020-12-20 08:24 | PN.CARD_ITS ---
Subjective Subjective Patient seen and eval. Underwent cardiac catheterization today. Objective Data Vital Signs: Vital Signs Temp Pulse Resp BP Pulse Ox 98.0 F 99 18 152/70 H 96 12/20/20 06:18 12/20/20 07:13 12/20/20 06:18 12/20/20 06:18 12/20/20 06:18 Oxygen Delivery Method Room Air Weight: 165 lb 9.074 oz Body Mass Index (BMI) 31.2 Intake & Output: Intake and Output for Last 24 Hours 12/18/20 12/19/20 12/20/20 23:59 23:59 23:59 Intake Total 480 / 480 45 / 45 Balance 480 / 480 45 / 45 Lab / Micro Data Result Diagrams: 12/20/20 05:28 12/20/20 05:28 Labs: Laboratory Results - last 24 hr 12/19/20 14:10: Sodium 134 L, Potassium 4.3, Chloride 103, Carbon Dioxide 25.0, Anion Gap 6, BUN 23 H, Creatinine 1.00, Estim Creat Clear Calc 35.55, Est GFR (MDRD) Af Amer 69, Est GFR (MDRD) Non-Af 57 L, BUN/Creatinine Ratio 23.0 H, Glucose 245 H, Calcium 9.8, Troponin I High Sens 2188 H* 12/19/20 14:10: WBC 8.9, RBC 4.62, Hgb 14.1, Hct 43.0, MCV 93.1, MCH 30.5, MCHC 32.8, RDW Std Deviation 43.3, RDW Coeff of Manas 12.7, Plt Count 353, MPV 9.4, Immature Gran % (Auto) 0.300, Neut % (Auto) 62.3, Lymph % (Auto) 24.9, [place] % (Auto) 10.8 H, Eos % (Auto) 1.1, Baso % (Auto) 0.6, Absolute Neuts (auto) 5.6, Absolute Lymphs (auto) 2.22, Nucleated RBC % 0 12/19/20 14:10: Magnesium 1.9 12/19/20 18:28: Troponin I High Sens 1652 H* 12/19/20 20:53: Troponin I High Sens 1557 H* 12/19/20 21:04: POC Glucose 230 H 12/20/20 05:28: WBC 8.4, RBC 4.45, Hgb 13.7, Hct 41.3, MCV 92.8, MCH 30.8, MCHC 33.2, RDW Std Deviation 42.9, RDW Coeff of Manas 12.7, Plt Count 322, MPV 9.2, Immature Gran % (Auto) 0.200, Neut % (Auto) 48.4, Lymph % (Auto) 36.3, [place] % (Auto) 10.9 H, Eos % (Auto) 3.2, Baso % (Auto) 1.0, Absolute Neuts (auto) 4.1, Absolute Lymphs (auto) 3.06, Nucleated RBC % 0 12/20/20 05:28: Sodium 136, Potassium 3.5, Chloride 106, Carbon Dioxide 24.0, Anion Gap 6, BUN 23 H, Creatinine 0.95, Estim Creat Clear Calc 37.42, Est GFR (MDRD) Af Amer 73, Est GFR (MDRD) Non-Af 61, BUN/Creatinine Ratio 24.2 H, Glucose 168 H, Calcium 9.1, Triglycerides 490 H, Cholesterol 280 H, LDL Cholesterol TNP, VLDL Cholesterol TNP, HDL Cholesterol 36 L, TSH 3.22 12/20/20 06:19: POC Glucose 159 H Cardiology Labs/Tests 12/19/20 14:10: Sodium 134 L, Potassium 4.3, Chloride 103, Carbon Dioxide 25.0, Anion Gap 6, BUN 23 H, Creatinine 1.00, Est GFR (MDRD) Af Amer 69, Est GFR (MDRD) Non-Af 57 L, BUN/Creatinine Ratio 23.0 H, Glucose 245 H, Calcium 9.8 12/19/20 14:10: WBC 8.9, RBC 4.62, Hgb 14.1, Hct 43.0, MCV 93.1, MCH 30.5, MCHC 32.8, Plt Count 353, MPV 9.4, Immature Gran % (Auto) 0.300, Neut % (Auto) 62.3, Lymph % (Auto) 24.9, [place] % (Auto) 10.8 H, Eos % (Auto) 1.1, Baso % (Auto) 0.6, Absolute Neuts (auto) 5.6, Nucleated RBC % 0 12/19/20 14:10: Magnesium 1.9 12/20/20 05:28: WBC 8.4, RBC 4.45, Hgb 13.7, Hct 41.3, MCV 92.8, MCH 30.8, MCHC 33.2, Plt Count 322, MPV 9.2, Immature Gran % (Auto) 0.200, Neut % (Auto) 48.4, Lymph % (Auto) 36.3, [place] % (Auto) 10.9 H, Eos % (Auto) 3.2, Baso % (Auto) 1.0, Absolute Neuts (auto) 4.1, Nucleated RBC % 0 12/20/20 05:28: Sodium 136, Potassium 3.5, Chloride 106, Carbon Dioxide 24.0, Anion Gap 6, BUN 23 H, Creatinine 0.95, Est GFR (MDRD) Af Amer 73, Est GFR (MDRD) Non-Af 61, BUN/Creatinine Ratio 24.2 H, Glucose 168 H, Calcium 9.1, Triglycerides 490 H, Cholesterol 280 H, LDL Cholesterol TNP, VLDL Cholesterol TNP, HDL Cholesterol 36 L Rhythm: EKG: Normal sinus rhythm ECHO: Stress Test: Cardiac Cath: PCI: CT Surgery: Holter monitor: EPS: PPM: CXR: Chest CT Scan: Physical Exam Const alert, oriented x3 and no apparent distress General Appearance: cooperative HEENT hearing grossly normal bilaterally Head and Scalp: atraumatic Eyes EOMs intact bilaterally Neck General: normal visual inspection Chest inspection of chest normal and palpation of chest normal Resp normal respiratory effort Auscultation: clear to auscultation bilaterally Cardio regular rate, regular rhythm, S1 normal heart sound and S2 normal heart sound Jugular Venous Distention: JVD GI normal to inspection, nondistended, normoactive bowel sounds Extremity normal capillary refill and no pedal edema Peripheral Pulses: Yes pulses 2+ throughout and femoral pulses present Skin no rashes or lesions noted Neuro oriented x3 and CN's II-XII intact bilaterally Psych Appearance: grossly normal and appropriate Assessment & Plan Assessment/Plan (1) Non-ST elevation ME (NSTEMI): PLAN: Patient had a non-ST elevation myocardial infarction. She underwent cardiac catheterization which demonstrated the following: Left main coronary artery is noted to be normal. Left anterior descending artery which appears to be totally occluded in the midsegment with a 70% stenosis of the first diagonal bifurcation. Left circumflex artery with focal 95% mid stenosis. Dominant right coronary artery with long 95% stenosis and distal diffuse disease. Left to right collaterals also noted. Reduced left ventricular systolic function with near akinetic basal inferior segment. Estimated ejection fraction of 45%. Based on the above angiographic findings the patient will be considered for multivessel PCI or coronary artery bypass surgery. (2) Essential hypertension: PLAN: Her blood pressure appears to be under fair control we will continue beta-marty for now. We will need to add an KALPESH inhibitor to her regimen due to her left ventricular systolic dysfunction. (3) Hyperlipidemia: PLAN: She does have severe hypertriglyceridemia. Would recommend high intensity statin. Thank you for allowing me to participate in the care of your patient. Please don't hesitate to call if any issues arise.
--- NOTE | 2020-12-20 08:43 | CL.D_ITS ---
Patient Name: CHIRAG RUFFIN Study Date: 12/20/2020 Performing: Librado Xiao MD Ht: 61 inches 155 cm : 1945 Wt: 165.6 lbs 75 kg Age: 75 Gender: female BSA: 1.74 PROCEDURE(S) PERFORMED [id number]/LV CLINICAL PROFILE AND INDICATIONS Indications: Suspected CAD Heart Failure: None Stress/Imaging Stress/Image Study Performed: No CONCLUSIONS Diffuse triple-vessel disease with focal disease noted in the left circumflex artery and lung disease noted in the mid to distal right coronary artery. The LAD appears to be totally occluded with small distal targets. RECOMMENDATIONS PCI vrs Surgery DESCRIPTION OF PROCEDURE The patient arrived to the procedure lab. The risks and benefits of the procedure as well as a full d escription of our services here and current unavailability of surgical backup were fully explained to the patient and/or their significant other prior to the catheterization. The Timeout was completed, verifying the correct patient and procedure. The patient's procedural site was prepped and draped in the usual fashion. Local anesthetic was given subcutaneously to right radial region with Lidocaine 2% . Using a modified Seldinger technique, arterial access was obtained via the right radial artery, a 6 Fr sheath was inserted. Right Coronary Artery selective angiography was then performed in multiple v iews using a 5 Fr. 4.0 [place] catheter. Left Coronary Artery selective angiography was performed in mu ltiple views using a 5 Fr. 4.0 [place] catheter. Left Ventriculography was performed in CAMARENA projection using a 5 Fr. Pig[place] catheter. LV to AO pullback pressures were then recorded. CORONARY ANGIOGRAPHY DOMINANCE: Right Dominant LEFT HEART ASSESSMENT Left Ventricular Ejection Fraction: by LV Gram 45 % Inferior Basal Akinesis LEFT MAIN: Mild luminal irregularities LEFT ANTERIOR DESCENDING ARTERY: MID LAD: is occluded DIAGONAL 1: Ostial - 70 % Stenosis SEPTAL: No significant disease noted CIRCUMFLEX ARTERY: MID CIRC: 95 % Stenosis RIGHT CORONARY ARTERY: PROX RCA: Mild luminal irregularities less than 30% MID RCA: DiffuseLong 85% stenotic lesion with distal diffuse disease COLLATERAL FLOW: Collateral flow from Left to Right COMPLICATIONS PROCEDURE MEDICATIONS Fentanyl 50 mcg IV Versed 1 mg IV Versed 1 mg IV Versed 1 mg IV Oxygen: 2 L/min via nasal cannula Heparin given IA 12/20/2020 08:00:38 Verapamil 2.5mg, Ntg 100mcgs, 3000 units of Heparin given IA 12/20/2020 08:00:38 SUMMARY OF HEMODYNAMIC DATA Time AIR REST ECG 07:34:22 AO 129/73 (97) SA 08:04:51 LV 130/6, 14 08:12:19 LV 130/8, 12 08:12:37 LV 130/10, 15 08:13:25 LVp 132/9, 14 08:13:29 AOp 128/63 (91) 08:13:34 Signed By Librado Xiao MD On 12/20/2020 08:42:39 Librado Xiao MD
--- NOTE | 2020-12-20 08:49 | CASEMGMT ---
RN CM NOTE: Pt has traditional MCR and can transfer to any tertiary facility of choice, if transfer is recommended. Anna Marie BSN RN CM
--- NOTE | 2020-12-20 11:24 | CRPHASE1 ---
Patient Communication PHII Cardiac Rehab Discussed with Patient:: Yes Guide to Cardiac Rehab Given to Patient:: Yes Cardiac Rehab Facility Choice List Given to Patient:: Yes Choice Program [facility] CR PHII:: Communication Given to CR Choice Program Other:: Communication Given to CR Painter Assistant:: Hector Marsh Refer Phase II Cardiac Rehab:: Yes Sessions:: 36 sessions - 3 days/wk, 12 weeks Cardiac Rehabilitation Info Cardiac Rehabilitation Program Information: Cardiac Rehabilitation is important for patients like you who are recovering from a heart problem. Cardiac rehabilitation programs are recognized as integral to the continued care of the patient with coronary heart disease. The cardiac rehabilitation program is designed to optimize a patient's physical, psychological, and social functioning. Health director medicare sales work in cardiac rehabilitation programs and assist you with getting the treatments you need to get stronger and healthier - like exercise, healthy eating habits, and medications. Cardiac rehabilitation has been show to help people with heart problems live longer and have better life enjoyment than people who do not go to cardiac rehabilitation. Please contact the Cardiac Rehabilitation Program at [facility] at in two weeks if you have not heard from them.
--- NOTE | 2020-12-20 11:25 | CRPH1.INST_ITS ---
General Education CAD and cardiac anatomy and function:: Patient communicates acknowledgment Explanation of diagnoses and procedures:: Patient communicates acknowledgment Sign/Symptoms of PA:: Patient communicates acknowledgment Antiplatelet therapy: Patient communicates acknowledgment Smoking Patient Nicotine/Smoking Risk Factors Are:: Never smoked Dyslipidemia Patient Dyslipidemia Risk Factors Are:: Total Cholesterol, Triglycerides, HDL, LDL Recommendations Include:: Lipid profile provided, Reviewed NCEP/ATP guidelines, Therapeutic Lifestyle Change dietary guidelines Dyslipidemia Response Code:: Patient communicates acknowledgment Overweight/Obesity Patient Overweight/Obesity Risk Factors Are:: Obesity - > or = 30 Recommendations Include:: Weight loss of 5-10%, Reduced calorie diet, Exercise 5-7 times/week Overweight/Obesity:: Patient communicates acknowledgment Hypertension Recommendations Include:: BP <130/80 if diabetic, DASH dietary guidelines, Decrease/maintain normal body weight, Moderation of ETOH Hypertension:: Patient communicates acknowledgment Diabetes Patient Diabetes Risk Factors Are:: Elevated blood sugars, Post-op hyperglycemia Recommendations Include:: Maintain fasting blood sugars 70-110 md/dL, Maintain HgbA1c of 6% or less, Monitor blood sugar as prescribed, Diabetic dietary guidel brett, Decrease/maintain body weight Diabetes:: Patient communicates acknowledgment Sedentary Patient Sedentary Risk Factors Are:: Lack of regular exercise Recommendations Include:: Aerobic exercise 5-7 times/week for 20-30 minutes continuously, Benefits of regular exercise, Discussed home walking program, Mon itored Outpatient Cardiac Rehab Sedentary Response Code:: Patient communicates acknowledgment Stress Recommendations Include:: Identification of stressors, and assessment of coping skills, Stress management techniques Stress Response Code:: Patient communicates acknowledgment
--- NOTE | 2020-12-20 11:30 | EKG12_ITS ---
Test Reason : AM EKG Blood Pressure : / mmHG Vent. Rate : 081 BPM Atrial Rate : 081 BPM P-R Int : 184 ms QRS Dur : 108 ms QT Int : 402 ms P-R-T Axes : 076 041 057 degrees QTc Int : 466 ms Normal sinus rhythm Inferior infarct , age undetermined Abnormal ECG Confirmed by CAM PHILLIP, SPRING ([id number]), newspaper or periodical editor PRAVIN GOODEN ([id number]) on 12/24/2020 1:48:35 PM Referred By: MARTÍN Confirmed By:SPRING LEVY MD
[2020-12-20] MEDS: 0.9% Normal Saline 1,000 ML 80 ML IV (12:00)
[2020-12-20] MEDS: Loratadine 10 MG Tablet PO (12:04)
[2020-12-20] MEDS: Azelastine HCl NASAL.SRY 1 SPRAY NASAL ×2 (12:04→21:06)
[2020-12-20] MEDS: Triamterene 37.5MG/Hctz 25MG Capsule 1 CAP PO (12:04)
[2020-12-20] MEDS: Fluticasone 0.05% 1 SPRAY NASAL.SRY NASAL ×2 (12:05→21:07)
[2020-12-20] MEDS: Metoprolol Tartrate 25 MG Tablet PO ×2 (12:09→21:08)
[2020-12-20 12:35] LABS: Bedside Glucose 169 mg/dL (70-110)
--- NOTE | 2020-12-20 14:45 | CASEMGMT ---
RN GEOVANNY MECHANICAL ENGINEERING LECTURER CM to room to meet with patient for initial transition planning/care coordination assessment. CHRIS SMALL introduced self and role at [facility]. Pt voices understanding and consents to assessment at this time. Pt resting in bed in no distress at this time. Pt is A/O at this time and answers all questions appropriately. Care providers, pharmacy, and demographics verified/updated at this time. PCP: Dr Thomas Specialists: Dr Pierce--pulmonology Preferred Pharmacy: [facility] Insurance:MCR, [employer] Prescription Benefit: Yes, [employer]. Pt to go home on Brilinta. Brilinta savings card given to pt and instructed on use. Pt made aware, if refills are not affordable, to discuss other options w/educational administration teacher. She voices understanding. Living Will/HPOA: Has both LW and HPOA, who is her Eugene LNOK: , Eugene. Son, Prabhjot. Living Arrangements: Lives w/her and 19-yr-old grandson lives w/them. Pt states is independent @ home w/ADL's. States she, , and grandson all work on home mgtm tasks. Pt states she manages her own medications and appts, as well as her and grandsons. Pt started to become tearful and voices is becoming more difficult for her to manage all of this, as she feels her is showing signs of dementia. does still work part-time. states she needs assistance w/cleaning and w/meals and is interested in resources. OSMAR Villafana, made aware. CCN: Discussed CCN w/pt and she is interested and agreeable to referral. Order placed. Call placed to Julio @ [facility] and referral made. Transportation: Pt states drives self and states no transportation concerns at this time. DME: States has the following DME: built-in shower chair, BSC, canes x 4, walker, functioning glucometer Pt states no need for further DME at this time. HHC/SNF: No history of either. Denies need for HHC. Pt wishes to return home and states has no concerns with going home at time of discharge. CM to follow for any further discharge planning/needs. Pt voices no further concerns/needs at this time. Advised pt to ask for CM if any further questions/concerns/needs arise. Voices understanding. PLAN: Home w/discharge plans in place. CCN referral made SW to meet w/pt to provide resources Anna Marie FRAGOSON RN CM
[2020-12-20 17:56] LABS: Bedside Glucose 203 mg/dL (70-110)
--- NOTE | 2020-12-20 18:41 | PN.HOSP_ITS ---
Subjective Subjective Patient was seen and examined today, she underwent a cardiac catheterization today which showed triple-vessel disease, patient had 2 drug-eluting stents placed one in the right coronary artery and one in circumflex. Patient has no complaints of any chest pain or shortness of breath at this time Objective Data Objective Data Vital Signs: Vital Signs Temp Pulse Resp BP Pulse Ox 98.1 F 73 16 138/66 H 96 12/20/20 15:39 12/20/20 17:29 12/20/20 17:29 12/20/20 17:29 12/20/20 17:29 Oxygen Delivery Method Room Air Weight: 75.1 kg Body Mass Index (BMI) 31.2 Intake & Output: Intake and Output for Last 24 Hours 12/18/20 12/19/20 12/20/20 23:59 23:59 23:59 Intake Total 480 / 480 1133.33 / 1133.33 Output Total 400 / 400 Balance 480 / 480 733.33 / 733.33 Lab / Micro Data Result Diagrams: 12/20/20 05:28 12/20/20 05:28 Labs: Laboratory Results - last 24 hr 12/19/20 18:28: Troponin I High Sens 1652 H* 12/19/20 20:53: Troponin I High Sens 1557 H* 12/19/20 21:04: POC Glucose 230 H 12/20/20 05:28: WBC 8.4, RBC 4.45, Hgb 13.7, Hct 41.3, MCV 92.8, MCH 30.8, MCHC 33.2, RDW Std Deviation 42.9, RDW Coeff of Manas 12.7, Plt Count 322, MPV 9.2, Immature Gran % (Auto) 0.200, Neut % (Auto) 48.4, Lymph % (Auto) 36.3, [place] % (Auto) 10.9 H, Eos % (Auto) 3.2, Baso % (Auto) 1.0, Absolute Neuts (auto) 4.1, Absolute Lymphs (auto) 3.06, Nucleated RBC % 0 12/20/20 05:28: Sodium 136, Potassium 3.5, Chloride 106, Carbon Dioxide 24.0, Anion Gap 6, BUN 23 H, Creatinine 0.95, Estim Creat Clear Calc 37.42, Est GFR (MDRD) Af Amer 73, Est GFR (MDRD) Non-Af 61, BUN/Creatinine Ratio 24.2 H, Glu cose 168 H, Calcium 9.1, Triglycerides 490 H, Cholesterol 280 H, LDL Cholesterol TNP, VLDL Cholesterol TNP, HDL Cholesterol 36 L, TSH 3.22 12/20/20 06:19: POC Glucose 159 H 12/20/20 11:56: POC Glucose 169 H 12/20/20 17:07: POC Glucose 203 H Radiography Diagnostic Testing: Radiology Impression Echocardiogram 12/19/20 17:08 Interpretation Summary Normal LV size. The estimated ejection fraction is 47 %. Stage 1 diastolic dysfunction. Mild to moderate segmental systolic dysfunction (see wall motion). Contrast injection was performed. Ordering Physician: Pavel^Janeth^^^ACADEMIC REGISTRAR-C Referring Physician: Su Thomas Performed By: Verona Ghosh, ADALBERTO, RVT Physical Exam Const alert, oriented x3, no apparent distress, average body habitus and healthy appea ring General Appearance: cooperative, well kempt and well developed Orientation / Consciousness: awake, oriented to person, oriented to place and oriented to time HEENT normocephalic and moist oral mucous membranes Eyes PERRL, EOMs intact bilaterally and conjunctivae normal Neck nuchal rigidity, supple, no JVD, thyroid normal and no carotid bruits General: trachea midline Resp normal respiratory effort and clear to auscultation bilaterally Auscultation: Negative for rales, rhonchi or wheezes Cardio regular rate, regular rhythm, no murmurs, no rub and no gallops GI normal to inspection, nondistended, normoactive bowel sounds, soft to palpation, non-tender and non-distended Extremity no clubbing, cyanosis or edema Skin no rashes or lesions noted General Skin Exam: no breakdown Neuro oriented x3, CN's II-XII intact bilaterally, no focal motor deficits and no sensory deficits noted Sensorium / Orientation: awake and alert Speech: speech normal Psych thought process normal and affect normal Assessment & Plan Assessment/Plan (1) Non-ST elevation UT (NSTEMI): PLAN: 1. Non-ST elevation UT-again patient underwent stent placement today, she will need further stents and or bypass in the near future, cardiology is adjust her medications #2 occlusive coronary nnutlia-uhpuzg-recmon, again patient underwent insertion of 2 stents today, she will probably need further intervention #3 hyperlipidemia #4 type 2 diabetes #5 essential hypertension #6 hypothyroidism Charges/Coding Visit Charges Inpatient E&M: 37985 Subs Hosp L2
[2020-12-20] MEDS: TICAGRELOR 90 MG TABLET PO (21:06)
[2020-12-20 22:10] LABS: Bedside Glucose 225 mg/dL (70-110)
[2020-12-21 02:56] VITALS: PULSE 60
[2020-12-21 03:56] VITALS: BP 121/55; PULSE 63; RESP 16; TEMP 36.6; O2SAT 94
[2020-12-21] MEDS: Levothyroxine 100 MCG Tablet PO (06:04)
[2020-12-21 06:43] LABS: Hematocrit 41.6 % (37-47); Hemoglobin 13.9 g/dL (12.0-15.0); Mean Corp Hgb Conc 33.4 g/dL (32-36); Mean Corpuscular Hgb 31.3 pg (27.0-32.0); Mean Corpuscular Volume 93.7 fL (81-99); Mean Platelet Vol. 9.1 fl (6.2-12.0); Platelet Count 313 K/mm3 (150-450); RBC Distribution Width CV 12.7 % (11.6-14.6); RBC Distribution Width SD 43.5 fl (35.1-43.9); Red Blood Count 4.44 M/mm3 (4.2-5.4); White Blood Count 9.9 K/mm3 (4.4-11.0)
[2020-12-21 06:52] VITALS: PULSE 71
[2020-12-21 06:55] LABS: Bedside Glucose 171 mg/dL (70-110)
[2020-12-21 07:25] LABS: ALB/GLOB Ratio 0.7 RATIO (0.9-2.4); AST(SGOT) 37 U/L (15-37); Alanine Aminotransfer ALT/SGPT 47 U/L (13-56); Alkaline Phosphatase 66 U/L (45-117); Anion Gap 6 (5-15); BUN 25 mg/dL (7-18); BUN/Creat Ratio 26.5 RATIO (10-20); Calcium,Total 8.8 mg/dL (8.5-10.1); Chloride 104 mmol/L (98-107); Creatinine, Serum 0.94 mg/dL (0.55-1.02); EST Glomerular Filtration Rate 61 mL/min (>60); Est Glom Filt Rate - Afr Amer 74 mL/min (>60); Estimated Creatinine Clearance 37.82 ml/min; Globulin 4.2 g/dL (2.2-4.2); Glucose 162 mg/dL (74-106); Potassium 3.7 mmol/L (3.5-5.1); Protein, Total 7.2 g/dL (6.4-8.2); Sodium Level 136 mmol/L (136-145)
[2020-12-21 07:38] VITALS: O2SAT 95
--- NOTE | 2020-12-21 08:00 | PN.CARD_ITS ---
Subjective Subjective Patient seen and evaluated. Doing well today. Objective Data Vital Signs: Vital Signs Temp Pulse Resp BP Pulse Ox 98 F 71 16 121/55 H 94 12/21/20 03:56 12/21/20 06:52 12/21/20 03:56 12/21/20 03:56 12/21/20 03:56 Oxygen Delivery Method Room Air Weight: 167 lb 12.348 oz Body Mass Index (BMI) 31.2 Intake & Output: Intake and Output for Last 24 Hours 12/19/20 12/20/20 12/21/20 23:59 23:59 23:59 Intake Total 480 / 480 1133.33 / 1733.33 600 / 600 Output Total 400 / 400 Balance 480 / 480 733.33 / 1333.33 600 / 600 Lab / Micro Data Result Diagrams: 12/21/20 06:25 12/21/20 06:25 Labs: Laboratory Results - last 24 hr 12/20/20 11:56: POC Glucose 169 H 12/20/20 17:07: POC Glucose 203 H 12/20/20 21:04: POC Glucose 225 H 12/21/20 06:25: WBC 9.9, RBC 4.44, Hgb 13.9, Hct 41.6, MCV 93.7, MCH 31.3, MCHC 33.4, RDW Std Deviation 43.5, RDW Coeff of Manas 12.7, Plt Count 313, MPV 9.1 12/21/20 06:25: Sodium 136, Potassium 3.7, Chloride 104, Carbon Dioxide 26.0, Anion Gap 6, BUN 25 H, Creatinine 0.94, Estim Creat Clear Calc 37.82, Est GFR (MDRD) Af Amer 74, Est GFR (MDRD) Non-Af 61, BUN/Creatinine Ratio 26.5 H, Glucose 162 H, Calcium 8.8, Total Bilirubin 0.30, AST 37, ALT 47, Alkaline Phosphatase 66, Total Protein 7.2, Albumin 3.0 L, Globulin 4.2, Albumin/Globulin Ratio 0.7 L 12/21/20 06:48: POC Glucose 171 H Cardiology Labs/Tests 12/21/20 06:25: WBC 9.9, RBC 4.44, Hgb 13.9, Hct 41.6, MCV 93.7, MCH 31.3, MCHC 33.4, Plt Count 313, MPV 9.1 12/21/20 06:25: Sodium 136, Potassium 3.7, Chloride 104, Carbon Dioxide 26.0, Anion Gap 6, BUN 25 H, Creatinine 0.94, Est GFR (MDRD) Af Amer 74, Est GFR (MDRD) Non-Af 61, BUN/Creatinine Ratio 26.5 H, Glucose 162 H, Calcium 8.8, Total Bilirubin 0.30 Rhythm: EKG: ECHO: Stress Test: Cardiac Cath: PCI: CT Surgery: Holter monitor: EPS: PPM: CXR: Chest CT Scan: Radiography Diagnostic Testing: Radiology Impression Echocardiogram 12/19/20 17:08 Interpretation Summary Normal LV size. The estimated ejection fraction is 47 %. Stage 1 diastolic dysfunction. Mild to moderate segmental systolic dysfunction (see wall motion). Contrast injection was performed. Ordering Physician: Elsa^^^RN ANESTHETIST-C Referring Physician: Su Thomas Performed By: Verona Ghosh, ADALBERTO, RVT Physical Exam Const alert, oriented x3 and no apparent distress General Appearance: cooperative HEENT hearing grossly normal bilaterally Head and Scalp: atraumatic Eyes EOMs intact bilaterally Neck General: normal visual inspection Chest inspection of chest normal and palpation of chest normal Resp normal respiratory effort Auscultation: clear to auscultation bilaterally Cardio regular rate, regular rhythm, S1 normal heart sound and S2 normal heart sound Jugular Venous Distention: JVD GI normal to inspection, nondistended, normoactive bowel sounds Extremity normal capillary refill and no pedal edema Peripheral Pulses: Yes pulses 2+ throughout and femoral pulses present Skin no rashes or lesions noted Neuro oriented x3 and CN's II-XII intact bilaterally Psych Appearance: grossly normal and appropriate Assessment & Plan Assessment/Plan (1) Non-ST elevation DC (NSTEMI): PLAN: Patient had a non-ST elevation myocardial infarction. She underwent cardiac catheterization which demonstrated the following: Left main coronary artery is noted to be normal. Left anterior descending artery which appears to be totally occluded in the midsegment with a 70% stenosis of the first diagonal bifurcation. Left circumflex artery with focal 95% mid stenosis. Dominant right coronary artery with long 95% stenosis and distal diffuse disease. Left to right collaterals also noted. Reduced left ventricular systolic function with near akinetic basal inferior segment. Estimated ejection fraction of 45%. She underwent angioplasty and stenting of the right coronary artery as well as the left circumflex artery. Plan is to discharge her for outpatient follow-up. (2) Essential hypertension: PLAN: Her blood pressure appears to be under fair control we will continue beta-amrty for now. We will need to add an KALPESH inhibitor to her regimen due to her left ventricular systolic dysfunction. (3) Hyperlipidemia: PLAN: She does have severe hypertriglyceridemia. Would recommend high intensity statin. Thank you for allowing me to participate in the care of your patient. Please don't hesitate to call if any issues arise.
[2020-12-21] MEDS: Loratadine 10 MG Tablet PO (08:30)
[2020-12-21] MEDS: Triamterene 37.5MG/Hctz 25MG Capsule 1 CAP PO (08:30)
[2020-12-21] MEDS: TICAGRELOR 90 MG TABLET PO (08:30)
[2020-12-21] MEDS: Azelastine HCl NASAL.SRY 1 SPRAY NASAL (08:30)
[2020-12-21] MEDS: Losartan Potassium 50 MG Tablet PO (08:30)
[2020-12-21 08:31] VITALS: PULSE 83
[2020-12-21] MEDS: Metoprolol Tartrate 25 MG Tablet PO (08:31)
[2020-12-21] MEDS: Fluticasone 0.05% 1 SPRAY NASAL.SRY NASAL (08:31)
--- NOTE | 2020-12-21 09:26 | PCM.DC ---
Discharge Instructions Diet Discharge Diet: 1800 Calorie Control Diet Activity Discharge Activity: Return to Normal Activity Weight Bearing Status: Full weight bearing Follow Up Care Test Results: Test results from this visit will be discussed in further detail at your follow-up appointment, if applicable. Discharge Plan Admission Admit Date/Time: 12/19/20 15:50 Primary Reason for Your Visit: acute [place], heart disease Attending Provider: Mo Rao Primary Care Provider: Su Thomas Consulting Providers: Librado Xiao Instructions Additional Instructions / Restrictions: Take one 81 mg aspirin daily Discharge Orders/Prescriptions Prescriptions: New aspirin 81 mg Tablet,Delayed Release (Dr/Ec) 81 mg PO BREAKFAST Qty: 1 RF: 0 atorvastatin 80 mg Tablet 80 mg PO DAILY Qty: 30 RF: 0 metoprolol tartrate 25 mg Tablet 25 mg PO BID Qty: 60 RF: 0 Brilinta 90 mg Tablet 90 mg PO BID Qty: 60 RF: 0 Continued triamterene-hydrochlorothiazid 37.5-25 mg tablet 1 tab PO DAILY RF: 0 losartan 50 mg tablet 50 mg PO DAILY RF: 0 azelastine 137 mcg (0.1 %) aerosol,spray 1 spray INTRANASAL BID RF: 0 azelastine 0.05 % drops 1 drp OPHTHALMIC BID RF: 0 loratadine [Claritin] 10 mg tablet 10 mg PO DAILY RF: 0 levothyroxine [Synthroid] 100 mcg tablet 100 mcg PO QODAY RF: 0 cascara sagrada 450 mg Capsule 450 mg PO BID RF: 0 montelukast 5 mg tablet,chewable 5 mg PO DAILY RF: 0 levothyroxine 100 mcg tablet 50 mcg PO QODAY RF: 0 fluticasone propionate 50 mcg/actuation spray,suspension 1 - 2 spray INTRANASAL DAILY RF: 0 Referrals / Follow Up: Librado Xiao MD [STAFF PHYSICIAN] - See Referral Note (in three weeks-call for appointment) Su Thomas DO [Primary Care Provider] - Within 2 Weeks Disposition Disposition (needs filled in before D/C Order can be placed): Home, Self Care
[2020-12-21 09:45] VITALS: BP 123/46; PULSE 74; RESP 14; TEMP 37.1; O2SAT 96
--- NOTE | 2020-12-21 09:53 | CASEMGMT ---
Addendum entered by Reanna Patton 12/21/20 10:30: Per Nicole PEREZ, pt states does not have Brilinta savings card, new card provided to pt. Patrick PEREZ CM Original Note: Brilinta e-scribed to [facility] previously. Call to [facility] to check on co-pay/coverage and per tech, cost is $45. Pt previously provided Brilinta savings card. Patrick PEREZ CM
--- NOTE | 2020-12-21 10:00 | EKG12_ITS ---
Test Reason : AM EKG Blood Pressure : / mmHG Vent. Rate : 069 BPM Atrial Rate : 069 BPM P-R Int : 178 ms QRS Dur : 106 ms QT Int : 416 ms P-R-T Axes : 046 014 056 degrees QTc Int : 445 ms Normal sinus rhythm Inferior infarct , age undetermined Abnormal ECG Confirmed by CAM PHILLIP, SPRING ([id number]), web editor PRAVIN GOODEN ([id number]) on 12/24/2020 1:46:22 PM Referred By: DR RESENDIZ Confirmed By:SPRING LEVY MD
--- NOTE | 2020-12-21 10:21 | PHA.DC.MR ---
Pharmacy Service has performed discharge medication reconciliation for this patient. Prepared counseling materials for pt (Brilinta, Lopressor, Lipitor, Aspirin), but pt had left prior to counselling. Home Medications azelastine 0.05 % eye drops 1 drp OPHTHALMIC BID 01/29/18 azelastine 137 mcg (0.1 %) nasal spray aerosol 1 spray INTRANASAL BID 01/29/18 levothyroxine 100 mcg tablet 100 mcg PO QODAY 01/29/18 loratadine 10 mg tablet 10 mg PO DAILY 01/29/18 losartan 50 mg tablet 50 mg PO DAILY 01/29/18 triamterene 37.5 mg-hydrochlorothiazide 25 mg tablet 1 tab PO DAILY 01/29/18 cascara sagrada 450 mg PO BID 12/19/20 fluticasone propionate 1 - 2 spray INTRANASAL DAILY 12/19/20 levothyroxine 50 mcg PO QODAY 12/19/20 montelukast 5 mg PO DAILY 12/19/20 aspirin 81 mg PO BREAKFAST #1 tab 12/21/20 atorvastatin 80 mg PO DAILY #30 tab 12/21/20 metoprolol tartrate 25 mg PO BID #60 tab 12/21/20 ticagrelor [Brilinta] 90 mg PO BID #60 tab 12/21/20 The patient's discharge medication list was reviewed for discrepancies and discrepancies were resolved.
--- NOTE | 2020-12-21 10:53 | CASEMGMT ---
SW was asked to see patient for resources including help at home and Meals on Wheels. SW met with patient, introduced self and role at [facility]. SW provided her with a paper on Meals on Wheels and information on private duty. She said the case monitor said she could get help from [facility]. OSMAR told her she has to qualify for Medicare and Medicaid and she does not have Medicaid. OSMAR told her she can call [facility] as they do have a resource center. Ledy REDDY
--- NOTE | 2020-12-21 11:35 | CL.I_ITS ---
Patient Name: CHIRAG RUFFIN Study Date: 12/20/2020 Performing: Justine Marsh MD Ht: 61 inches 155 cm : 1945 Wt: 165.6 lbs 75 kg Age: 75 Gender: female BSA: 1.74 PROCEDURE(S) PERFORMED [id number] W OR WO PTCA, SINGLE CORONARY ARTERY [id number] W OR WO PTCA, SINGLE CORONARY ARTERY CLINICAL PROFILE AND CO-MORBIDITIES Indications: Suspected CAD Heart Failure: None Stress/Imaging Stress/Image Study Performed: No CONCLUSIONS Successful BRAVO to dRCA and mLCx RECOMMENDATIONS DESCRIPTION OF PROCEDURE The patient arrived to the procedure lab. The risks and benefits of the procedure as well as a full d escription of our services here and current unavailability of surgical backup were fully explained to the patient and/or their significant other prior to the catheterization. The Timeout was completed, verifying the correct patient and procedure. The patient's procedural site was prepped and draped in the usual fashion. Local anesthetic was given subcutaneously to right radial region with Lidocaine 2% Using a modified Seldinger technique,arterial access was obtained via the right radial artery, a 6Fr sheath was inserted. Right Coronary Artery selective angiography was then performed in multiple view s using a 5 Fr. 4.0 Shelley catheter. Left Coronary Artery selective angiography was performed in multi ple views using a 5 Fr. 4.0 Shelley catheter. Left Ventriculography was performed in CAMARENA projection usi ng a 5 Fr. Pigtail catheter. LV to AO pullback pressures were then recorded. JR 4.0 Guide catheter was inserted and engaged into the RCA. BMW Guide wire was advanced to the R CA. Whisper Guide wire was advanced to the RCA. 2.5 x 20 Emerge Balloon catheter was inserted. 1.2 x 15 Emerge Balloon catheter was inserted. 1.2 x 15 Emerge Balloon catheter was inserted. Balloon fran ter was advanced across lesion in the right coronary, distal. PTCA balloon inflated at 18 atms for 28 secs. PTCA balloon inflated at 18 atms for 15 secs. PTCA balloon inflated at 18 atms for 15 secs. PT CA balloon inflated at 18 atms for 18 secs. 2 x 20 Emerge Balloon catheter was inserted. Balloon cath eter was advanced across lesion in the right coronary, distal. PTCA balloon inflated at 8 atms for 33 secs. PTCA balloon inflated at 6 atms for 7 secs. Angiogram performed post balloon dilatation. 2.25 x 30 Orsiro Drug Eluting stent was inserted. Drug Eluting stent was advanced across the lesion in the right coronary, distal. Angiogram performed post stent deployment. 2.5 x 20 Emerge Balloon catheter was inserted. Balloon catheter was inserted post stent. PTCA balloon inflated at 10 atms for 14 secs. PTCA balloon inflated at 10 atms for 11 secs. Angiogram performed pre balloon dilat ation. 3.0 x 15 NC Emerge Balloon catheter was inserted post stent. Angiogram performed post balloon dilatation. XB 3.0 Guide catheter was inserted and engaged into the LCA. BMW Guide wire was advanced to the Circumflex. 2 x 8 EMerge Balloon catheter was inserted. Balloon catheter was advanced across l esion in the circumflex, mid. PTCA balloon inflated at 8 atms for 13 secs. Angiogram performed post b alloon dilatation. 2.25 x 13 Orsiro Drug Eluting stent was inserted. Drug Eluting stent was advanced across the lesion in the circumflex, mid. Angiogram performed post stent deployment. Angiogram perfor med post stent deployment. The arterial sheath was pulled and a TR Band was applied for hemostasis - 12cc air INTERVENTION INFORMATION LESION SITE: RCA (Distal) Lesion Complexity: High/C, chronic total occlusion: No, lesion at bifurcation: Yes, thrombus present: No, lesion length: 30 mm, culprit lesion: Yes, Previously treated lesion: No Pre Stenosis: 99 % Pre intervention JESICA flow: 2 PROCEDURE: Drug Eluting Stent with pre and post dilatation The 2.25 mm stent was post dilated in the proximal part with a 3.0 mm nc balloon Post Stenosis: 0 % Post intervention JESICA flow: 3 Lesion Devices: Cardinal 6 Fr JR4 100cm Guide Catheter Acosta .014 HT Whisper MS Straight 190cm Messi Sci EMERGE MR 2.50x20 BALLOON Messi Sci EMERGE MR 1.20x15 BALLOON Vascular Solutions 6 Slovenian GuideLiner Messi Sci EMERGE MR 2.00x20 BALLOON Biotronik Orsiro MR BRAVO 2.25x30 Messi Sci NC EMERGE MR 3.00x15 BALLOON LESION SITE: Circumflex (Mid) Lesion Complexity: High/C, chronic total occlusion: No, lesion at bifurcation: No, thrombus present: No, lesion length: 10 mm, culprit lesion: Yes, Previously treated lesion: No Pre Stenosis: 95 % Pre intervention JSEICA flow: 3 PROCEDURE: Drug Eluting Stent with pre dilatation. Importance of BRAVO (including ASA) was discussed with patient in detail. Option of CABG was discussed as well. Pt. preferred the PCI approach Post Stenosis: 0 % Post intervention JESICA flow: 3 Lesion Devices: Acosta .014 BMW Derry Straight 190cm Cardinal 6 Fr XB3.0 100cm Guide Catheter Messi Sci EMERGE MR 2.00x08 BALLOON Biotronik Orsiro MR BRAVO 2.25x13 COMPLICATIONS No Complications PROCEDURE MEDICATIONS Fentanyl 50 mcg IV Versed 1 mg IV Versed 1 mg IV Versed 1 mg IV Fentanyl 50 mcg IV Fentanyl 25 mcg IV Oxygen: 2 L/min via nasal cannula Brilinta 180 mg PO @ 12/20/2020 10:50:45 Heparin given IA 12/20/2020 08:00:38 Heparin 5000 unit(s) IV 12/20/2020 09:40:08 Heparin 1000 unit(s) IV 12/20/2020 10:26:40 Nitro 100 mcg IC 12/20/2020 10:05:58 Verapamil 2.5mg, Ntg 100mcgs, 3000 units of Heparin given IA 12/20/2020 08:00:38 IV Bolus: .9 NaCl 200 ml total 12/20/2020 10:48:23 SUMMARY OF HEMODYNAMIC DATA Time AIR REST ECG 07:34:22 AO 129/73 (97) SA 08:04:51 LV 130/6, 14 08:12:19 LV 130/8, 12 08:12:37 LV 130/10, 15 08:13:25 LVp 132/9, 14 08:13:29 AOp 128/63 (91) 08:13:34 Signed By Justine Marsh MD On 12/21/2020 11:35:35 AM Justine Marsh MD
--- NOTE | 2020-12-24 09:33 | CCN.REFER ---
AGREEABLE TO CCN.
--- NOTE | 2020-12-24 15:01 | CASEMGMT ---
CHRIS SMALL Discharge F/U Phone Call LACE: 12 Strata: 3 Discharge date: 12/21/20 Call date: 12/24/20 Call time: 1502 Admission dx: NSTEMI Pt states is doing 'good' since discharge and states 'I feel so much better now that I have oxygen in my body.' Pt states no questions regarding discharge instructions/medications. Pt states CCN is at her home at this time and will assist with meds/diet. Pt states has f/u scheduled with Dr. Xiao. Pt states no further questions/concerns/needs. [place]en CHRIS SMALL
--- NOTE | 2020-12-27 15:40 | DS.PCM_ITS ---
Providers Date of Admission: 12/19/20 Date of Discharge: 12/21/20 Primary Care Physician: Dr. Su Thomas, Consultations 12/19/20 17:08 Consult: Cardiology Routine Consulting Provider: Librado Xiao Reason for Consult: NSTEMI EMERGENT Consult: No MD Notified: Yes Date Notified: 12/19/20 Time Notified: 16:16 Method of Notification: Provider Initiated Comments:: notified by ER doctor Reason For Visit: NSTEMI Diagnosis Discharge Diagnosis (1) Non-ST elevation MA (NSTEMI): Status: Resolved Code(s): I21.4 - Non-ST elevation (NSTEMI) myocardial infarction (2) Essential hypertension: Status: Acute Code(s): I10 - Essential (primary) hypertension (3) Hyperlipidemia: Status: Acute Code(s): E78.5 - Hyperlipidemia, unspecified Plan: 1. Non-ST elevation MA #2 occlusive coronary [id number] #3 hyperlipidemia #4 type 2 diabetes #5 essential hypertension #6 hypothyroidism Medications at Discharge Home Medications azelastine 0.05 % eye drops 1 drp OPHTHALMIC BID 01/29/18 azelastine 137 mcg (0.1 %) nasal spray aerosol 1 spray INTRANASAL BID 01/29/18 levothyroxine 100 mcg tablet 100 mcg PO QODAY 01/29/18 loratadine 10 mg tablet 10 mg PO DAILY 01/29/18 losartan 50 mg tablet 50 mg PO DAILY 01/29/18 triamterene 37.5 mg-hydrochlorothiazide 25 mg tablet 1 tab PO DAILY 01/29/18 cascara sagrada 450 mg PO BID 12/19/20 fluticasone propionate 1 - 2 spray INTRANASAL DAILY 12/19/20 levothyroxine 50 mcg PO QODAY 12/19/20 montelukast 5 mg PO DAILY 12/19/20 aspirin 81 mg PO BREAKFAST #1 tab 12/21/20 atorvastatin 80 mg PO DAILY #30 tab 12/21/20 metoprolol tartrate 25 mg PO BID #60 tab 12/21/20 ticagrelor [Brilinta] 90 mg PO BID #60 tab 12/21/20 Hospital Course Procedures Cardiac catheterization (With insertion of drug-eluting stents x2-1 in right coronary artery, 1 in circumflex coronary artery) Summary of Care Provided Minutes Spent on Discharge: 31 Hospital Course: This 75-year-old white female was seen in the emergency room at [facility] with a chief complaint of chest pain, she had been seen the day before in the emergency room at [facility], and EKG at that time showed some ischemic ST depressions and her labs revealed an abnormal troponin, patient decided to check herself out AGAINST MEDICAL ADVICE, she was convinced to return to the hospital for reevaluation in the emergency room, patient did not complain of any recurrent symptoms since she left the hospital emergency room yesterday. Labs obtained in the emergency room showed a normal CBC, chemistry profile was remarkable for BUN of 23, troponin was elevated at 2188. Patient's EKG showed a sinus rhythm with evidence of no inju ry pattern. Patient was admitted to PCU, she was seen in consultation by cardiology who performed a cardiac catheterization on 12/20/2020, triple-vessel disease was noted to be present and the patient underwent BRAVO placement in the circumflex and right coronary artery, there were no complications from the procedure. Echocardiogram obtained during her hospitalization showed an intermediate ejection fraction of 47%. On 12/21/2020, patient was seen and examined: On examination she appeared in good health and spirits, she does not appear to be in any distress. Vital signs as documented. Skin warm and dry and without overt rashes. Neck without JVD, thyroid appears normal, trachea is midline, neck is supple. Lungs clear, normal air movement was noted. Heart exam notable for regular rhythm, normal sounds and absence of murmurs, rubs or gallops. Abdomen unremarkable and without evidence of organomegaly, masses, or abdominal aortic enlargement, bowel sounds are present in all 4 quadrants, no abdominal tenderness was noted. Extremities nonedematous, no cyanosis was noted, no clubbing was noted. Neuro: Cranial nerves II through XII are grossly intact, no focal motor deficits were noted, sensation to light touch and pinprick is intact, motor exam 5/5 throughout. Psych: Patient is alert and oriented x3, she does not appear anxious or depressed, she does not appear agitated. Patient was discharged home in stable condition on 12/21/2020. Weight / BMI Weight Weight: 76.1 kg Body Mass Index (BMI) 31.2 ABG / Lab / Microbiology Data Result Diagrams: 12/21/20 06:25 12/21/20 06:25 D/C Instructions Discharge Diet: 1800 Calorie Control Diet Weight Bearing Status: Full weight bearing Meaningful Use Info Meaningful Use Diagnoses (Choose all that apply): AMI AMI/Post PCI/Angioplasty Aspirin given w/in 24hrs of arrival?: Yes ASA at discharge?: Yes Antiplatelet Therapy at Discharge:: Yes Statins at discharge?: Yes Morris/ARB at discharge?: Yes Beta Bernice at discharge?: Yes Done w/ Acute MA measure.: Yes Documented LVEF (%): 47 Discharge Plan Admission Admit Date/Time: 12/19/20 15:50 Primary Reason for Your Visit: acute MA, heart disease Attending Provider: Mo Rao Primary Care Provider: Su Thomas Consulting Providers: Librado Xiao Instructions Additional Instructions / Restrictions: Patient Problems: Altered Health Status related to Hospitalization Patient Goals: *Optimal Level of Health *Keep Appointments *Medication Compliance *Remain SafeTake one 81 mg aspirin daily Discharge Orders/Prescriptions Prescriptions: New aspirin 81 mg Tablet,Delayed Release (Dr/Ec) 81 mg PO BREAKFAST Qty: 1 RF: 0 atorvastatin 80 mg Tablet 80 mg PO DAILY Qty: 30 RF: 0 metoprolol tartrate 25 mg Tablet 25 mg PO BID Qty: 60 RF: 0 Brilinta 90 mg Tablet 90 mg PO BID Qty: 60 RF: 0 Continued triamterene-hydrochlorothiazid 37.5-25 mg tablet 1 tab PO DAILY RF: 0 losartan 50 mg tablet 50 mg PO DAILY RF: 0 azelastine 137 mcg (0.1 %) aerosol,spray 1 spray INTRANASAL BID RF: 0 azelastine 0.05 % drops 1 drp OPHTHALMIC BID RF: 0 loratadine [Claritin] 10 mg tablet 10 mg PO DAILY RF: 0 levothyroxine [Synthroid] 100 mcg tablet 100 mcg PO QODAY RF: 0 cascara sagrada 450 mg Capsule 450 mg PO BID RF: 0 montelukast 5 mg tablet,chewable 5 mg PO DAILY RF: 0 levothyroxine 100 mcg tablet 50 mcg PO QODAY RF: 0 fluticasone propionate 50 mcg/actuation spray,suspension 1 - 2 spray INTRANASAL DAILY RF: 0 Referrals / Follow Up: Su Thomas DO [Primary Care Provider] - 12/26/20 1:15 pm Warren Murphy [employer], [employer] [Nurse Practitioner] - 01/16/21 10:30 am Disposition Disposition (needs filled in before D/C Order can be placed): Home, Self Care Charges/Coding Visit Charges Inpatient E&M: 62263 Disch Hosp
== END 2020-12-21 10:16 | disposition home or self-care (01) | DRG 247 ==
LOC: ED 15:22 → PCU 16:56
PROVIDERS: Nurse Practitioner Family; Specialist; Admitting Provider Internal Medicine; Emergency Provider Emergency Medicine; PCP Internal Medicine; Visit Provider Internal Medicine
DX: I21.4 Non-ST elevation (NSTEMI) myocardial infarction (principal); I25.10 Atherosclerotic heart disease of native coronary artery without angina pectoris; E78.5 Hyperlipidemia, unspecified; F32.9 Major depressive disorder, single episode, unspecified; I10 Essential (primary) hypertension; M06.9 Rheumatoid arthritis, unspecified; M19.90 Unspecified osteoarthritis, unspecified site; M79.7 Fibromyalgia; E03.9 Hypothyroidism, unspecified; E11.40 Type 2 diabetes mellitus with diabetic neuropathy, unspecified; E78.00 Pure hypercholesterolemia, unspecified; H91.90 Unspecified hearing loss, unspecified ear; Z79.899 Other long term (current) drug therapy
CPT/HCPCS: 36415; 71045; 80048; 80053; 80061; 82962; 83735; 84443; 84484; 85025; 85027; 92928; 93005; 93306; 93458; 99152; 99153; 99282; 99285; C1874; J7030; Q9957; Q9967; A4216; C1725; C1769; C1887; C1894; C8929; C9600

== ENCOUNTER → 2021-01-11 13:46 | Outpatient (CLI) | payer MEDICARE, OTHER, SELFPAY | PROVIDERS: PCP Internal Medicine; Referring Provider Internal Medicine Cardiovascular Disease; Visit Provider Internal Medicine Cardiovascular Disease | DX: I21.4 Non-ST elevation (NSTEMI) myocardial infarction (principal); I25.10 Atherosclerotic heart disease of native coronary artery without angina pectoris; Z95.5 Presence of coronary angioplasty implant and graft; I25.5 Ischemic cardiomyopathy; I10 Essential (primary) hypertension; E78.5 Hyperlipidemia, unspecified; E11.9 Type 2 diabetes mellitus without complications; E66.9 Obesity, unspecified ==

== ENCOUNTER → 2021-01-16 11:43 | Outpatient (CLI) | payer MEDICARE, OTHER, SELFPAY ==
[2021-01-16 13:44] LABS: Anion Gap 8 (5-15); BUN 21 mg/dL (7-18); BUN/Creat Ratio 21.9 RATIO (10-20); Calcium,Total 9.2 mg/dL (8.5-10.1); Chloride 102 mmol/L (98-107); Creatinine, Serum 0.96 mg/dL (0.55-1.02); EST Glomerular Filtration Rate 60 mL/min (>60); Est Glom Filt Rate - Afr Amer 73 mL/min (>60); Glucose 255 mg/dL (74-106); Potassium 3.9 mmol/L (3.5-5.1); Sodium Level 137 mmol/L (136-145)
[2021-01-16 13:49] LABS: BNP,B-Type NATRIURETIC PEPTIDE 53.9 pg/mL (0-100)
== END ==
PROVIDERS: PCP Internal Medicine; Referring Provider Nurse Practitioner Family; Visit Provider Nurse Practitioner Family
DX: I25.10 Atherosclerotic heart disease of native coronary artery without angina pectoris (principal); Z95.5 Presence of coronary angioplasty implant and graft; I25.5 Ischemic cardiomyopathy; I10 Essential (primary) hypertension; R06.00 Dyspnea, unspecified; E78.5 Hyperlipidemia, unspecified; I21.4 Non-ST elevation (NSTEMI) myocardial infarction
CPT/HCPCS: 36415; 80048; 83880

== ENCOUNTER → 2021-01-21 12:45 | Outpatient (CLI) | payer MEDICARE, OTHER, SELFPAY ==
--- NOTE | 2021-01-21 12:48 | RAD_ITS ---
STUDY: X-RAY CHEST REASON FOR EXAM: Female, 75 years old. COUGH TECHNIQUE: PA and lateral views of the chest. COMPARISON: Comparison is made with prior study dated 12/18/2020. FINDINGS: There is hyperinflation of the lungs consistent with chronic obstructive lung disease (COPD). There is no demonstrated pleural abnormality. Normal size heart. Normal mediastinum and bill. Normal visualized pulmonary arteries. There is atherosclerotic calcification of the aortic arch with tortuosity. There are diffuse degenerative changes of the visualized thoracic spine. Normal visualized ribs, clavicles, and shoulders. There is no demonstrated abnormality of the visualized soft tissue structures of the upper abdomen. RAD/Chest PA and Lateral IMPRESSION: Hyperinflation. Lungs are clear. Electronically Signed: Gareth Rojas MD at 14:14 EDT , Service support ,
== END ==
PROVIDERS: PCP Internal Medicine; Referring Provider Nurse Practitioner; Visit Provider Nurse Practitioner
DX: R05.9 Cough, unspecified (principal)
CPT/HCPCS: 71046

== ENCOUNTER 2021-01-22 16:55 | Outpatient (CLI) | payer MEDICARE, OTHER, SELFPAY ==
[2021-01-22 17:12] VITALS: BP 140/44; PULSE 86; RESP 16; TEMP 36.7; O2SAT 98; BMI 31.1
[2021-01-22 18:07] VITALS: BP 125/56; PULSE 77; RESP 16; TEMP 36.6; O2SAT 97
[2021-01-22 19:00] VITALS: BP 146/54; PULSE 79; RESP 16; TEMP 36.6; O2SAT 97
== END 2021-01-22 19:10 | disposition home or self-care (01) ==
LOC: MS3OUT 16:55 → MS3 16:56
PROVIDERS: PCP Internal Medicine; Referring Provider Nurse Practitioner Adult Health; Visit Provider Nurse Practitioner Adult Health
DX: Z23 Encounter for immunization (principal); U07.1 COVID-19
CPT/HCPCS: J7050; M0245; Q0245

== ENCOUNTER → 2021-02-01 12:43 | Outpatient (CLI) | payer MEDICARE, OTHER, SELFPAY ==
--- NOTE | 2021-02-01 12:46 | RAD_ITS ---
STUDY: X-RAY CHEST REASON FOR EXAM: Female, 75 years old. COVID TECHNIQUE: PA and lateral views of the chest. COMPARISON: Comparison is made with prior study 01/21/2021. FINDINGS: There is hyperinflation of the lungs consistent with chronic obstructive lung disease (COPD). There is no demonstrated pleural abnormality. Normal size heart. Normal mediastinum and bill. There is prominence of the pulmonary hilar arteries without peripheral pulmonary vascular congestion, suggesting pulmonary hypertension. There is atherosclerotic calcification of the aortic arch with tortuosity. There are diffuse degenerative changes of the visualized thoracic spine. Normal visualized ribs, clavicles, and shoulders. There is no demonstrated abnormality of the visualized soft tissue structures of the upper abdomen. RAD/Chest PA and Lateral IMPRESSION: Hyperinflation. The lungs are clear. Electronically Signed: Gareth Rojas MD at 13:05 EDT , Service support ,
== END ==
LOC: MTRAD 12:45
PROVIDERS: PCP Internal Medicine; Referring Provider Nurse Practitioner; Visit Provider Nurse Practitioner
DX: U07.1 COVID-19 (principal)
CPT/HCPCS: 71046

== ENCOUNTER 2021-02-26 04:08 | Emergency (ER) | payer MEDICARE, OTHER, SELFPAY ==
[2021-02-26 04:12] VITALS: BP 167/69; PULSE 93; RESP 18; TEMP 37; O2SAT 94; BMI 33.1
--- NOTE | 2021-02-26 04:33 | EKG12_ITS ---
Test Reason : CHEST PAIN Blood Pressure : / mmHG Vent. Rate : 089 BPM Atrial Rate : 089 BPM P-R Int : 168 ms QRS Dur : 104 ms QT Int : 356 ms P-R-T Axes : 082 028 001 degrees QTc Int : 433 ms Sinus rhythm with occasional Premature ventricular complexes Inferior infarct (cited on or before 19-DEC-2020) Abnormal ECG When compared with ECG of 21-DEC-2020 05:54, Premature ventricular complexes are now Present T wave inversion now evident in Inferior leads Confirmed by MARA PHILLIP, AGUEDA ([id number]), market editor PRAVIN GOODEN ([id number]) on 03/04/2021 9:54:52 AM Referred By: LAUREEN Confirmed By:JAMEL TERRY MD
--- NOTE | 2021-02-26 04:35 | RAD_ITS ---
STUDY: X-RAY CHEST REASON FOR EXAM: Female, 75 years old. Chest pain TECHNIQUE: 1 day history of chest pain. COMPARISON: Comparison is made with prior study dated the 2020. FINDINGS: EKG electrodes are seen. There is hyperinflation of the lungs consistent with chronic obstructive lung disease (COPD). There is no demonstrated pleural abnormality. Normal size heart. Normal mediastinum and bill. Normal visualized pulmonary arteries. There is atherosclerotic calcification of the aortic arch with tortuosity. There are diffuse degenerative changes of the visualized thoracic spine. Normal visualized ribs, clavicles, and shoulders. There is no demonstrated abnormality of the visualized soft tissue structures of the upper abdomen. RAD/Chest 1 View (Portable) IMPRESSION: Hyperinflation. There is been no change since prior study. Electronically Signed: Gareth Rojas MD at 8:39 EST , Service support ,
[2021-02-26 04:49] LABS: Absolute Lymphocyte Count 1.72 X10^3/uL (0.83-4.51); Absolute Neutrophil Count 11.3 X10^3/uL (2.0-7.7); Basophil# 0.07 X10^3/uL; Basophil% 0.5 % (0-1); Eosinophil# 0.14 X10^3/uL; Hematocrit 37.3 % (37-47); Hemoglobin 12.8 g/dL (12.0-15.0); Lymphocyte # 1.72 X10^3/ul (0.83-4.51); Mean Corp Hgb Conc 34.3 g/dL (32-36); Mean Corpuscular Hgb 31.5 pg (27.0-32.0); Mean Corpuscular Volume 91.9 fL (81-99); Mean Platelet Vol. 9.4 fl (6.2-12.0); Monocyte# 1.08 X10^3/uL; Monocyte% 7.5 % (0-10); NRBC Flagged by Analyzer 0 % (0-5); Neutrophil # 11.26 X10^3/uL (2.7-7.7); Neutrophil % 78.6 % (47-70); Platelet Count 288 K/mm3 (150-450); RBC Distribution Width SD 43.7 fl (35.1-43.9); Red Blood Count 4.06 M/mm3 (4.2-5.4); White Blood Count 14.3 K/mm3 (4.4-11.0)
[2021-02-26] MEDS: Orphenadrine 60 MG/2 ML Ampul IV (04:53)
[2021-02-26] MEDS: Morphine 2 MG/ML Syringe IV (04:53)
[2021-02-26] MEDS: Ondansetron 4 MG/2 ML Vial IV (04:54)
[2021-02-26 05:04] LABS: D-Dimer Quantitative (DVT/PE) 0.57 FEU/ug/m (0.27-0.49)
[2021-02-26 05:09] LABS: Anion Gap 9 (5-15); BUN 17 mg/dL (7-18); BUN/Creat Ratio 19.4 RATIO (10-20); Calcium,Total 8.9 mg/dL (8.5-10.1); Chloride 102 mmol/L (98-107); Creatinine, Serum 0.88 mg/dL (0.55-1.02); EST Glomerular Filtration Rate 66 mL/min (>60); Est Glom Filt Rate - Afr Amer 80 mL/min (>60); Glucose 252 mg/dL (74-106); Potassium 3.8 mmol/L (3.5-5.1); Sodium Level 136 mmol/L (136-145); Troponin-I HS 16 pg/mL (3.0-54.0)
[2021-02-26 05:33] VITALS: BP 136/68; PULSE 70; RESP 20; O2SAT 94
[2021-02-26 06:27] VITALS: BP 136/60; PULSE 70; RESP 19; O2SAT 94
--- NOTE | 2021-02-26 06:48 | EX.ED.DYSGE1 ---
HPI History of Present Illness Chief Complaint: Chest Pain Narrative Narrative: Pt states that she had a stent placed about 2-3 months ago. She states that she has developed some congestion and cough over the past 2-3 days and now has noticed chest pain with motion or breathing. She denies any trauma but with her past cardiac history and chest pain presents for evaluation [facility] Medical History Allergic rhinitis Atherosclerotic heart disease of [place] coronary artery without angina pectoris Depressive disorder Diabetes Diabetic neuropathy Dyspepsia Essential hypertension Fibromyalgia Hearing loss History of tachycardia Hyperlipidemia Hypothyroidism Insomnia Insomnia Ischemic cardiomyopathy Left against medical advice (12/19/20) Neuropathy Obesity Osteoarthritis Rheumatoid arthritis Tachycardia Thyromegaly Varicosities of leg Vitamin D deficiency Home Medications azelastine 0.05 % eye drops 1 drp OPHTHALMIC BID 01/29/18 [History Last Taken 12/19/20] azelastine 137 mcg (0.1 %) nasal spray aerosol 1 spray INTRANASAL BID 01/29/18 [History Last Taken 12/19/20] levothyroxine 100 mcg tablet 100 mcg PO QODAY 01/29/18 [History Last Taken 12/19/20] loratadine 10 mg tablet 10 mg PO DAILY 01/29/18 [History Last Taken 12/18/20] losartan 50 mg tablet 50 mg PO DAILY 01/29/18 [History Last Taken 12/18/20] triamterene 37.5 mg-hydrochlorothiazide 25 mg tablet 1 tab PO QODAY 01/29/18 [History Last Taken 12/18/20] cascara sagrada 450 mg PO BID 12/19/20 [History Last Taken 12/18/20] fluticasone propionate 1 - 2 spray INTRANASAL DAILY 12/19/20 [History Last Taken 12/19/20] levothyroxine 50 mcg PO QODAY 12/19/20 [History Last Taken 12/18/20] montelukast 5 mg PO DAILY 12/19/20 [History Last Taken 12/19/20] aspirin 81 mg PO BREAKFAST #1 tab 12/21/20 [Rx Last Taken Unknown] pravastatin 40 mg tablet 40 mg PO QHS #30 tab 12/31/20 [Rx Last Taken Unknown] metoprolol tartrate 25 mg tablet 25 mg PO BID #180 tab 02/04/21 [Rx Last Taken Unknown] clopidogrel 75 mg tablet 75 mg PO QDAY #90 tab 02/08/21 [Rx Last Taken Unknown] hydrocodone-acetaminophen 1 tab PO Q6H PRN 3 Days #12 tab 02/26/21 [Rx Last Taken Unknown] methocarbamol 500 mg PO Q6H PRN #40 tab 02/26/21 [Rx Last Taken Unknown] Allergy/AdvReac Type Severity Reaction Status Date / Time aspirin Allergy Intermediate heart Verified 02/26/21 04:16 races, dizziness povidone-iodine Allergy Intermediate rash Verified 02/26/21 04:16 [From Betadine] soap [From Betadine] Allergy Intermediate rash Verified 02/26/21 04:16 amitriptyline Allergy Unknown Unknown Verified 02/26/21 04:16 doxepin Allergy Unknown unknown Verified 02/26/21 04:16 guaifenesin [From Entex LA] Allergy Unknown Unknown Verified 02/26/21 04:16 latex Allergy Unknown Unknown Verified 02/26/21 04:16 phenylephrine [From Entex LA] Allergy Unknown Unknown Verified 02/26/21 04:16 phenylpropanolamine Allergy Unknown Unknown Verified 02/26/21 04:16 [From Entex LA] pseudoephedrine Allergy Unknown Unknown Verified 02/26/21 04:16 Sulfa (Sulfonamide Allergy Unknown Unknown Verified 02/26/21 04:16 Antibiotics) Family History Father Asthma Diabetes High cholesterol Heart disease Hypertension Mother Arthritis Diabetes Heart disease Hypertension Sister Arthritis Lupus Brother Arthritis Surgical History History of coronary artery stent placement (12/20/20) History of hysterectomy History of repair of rectocele Social History Smoking Status: Never smoker alcohol intake: never substance use type: does not use ROS ROS ED Constitutional Constitutional ED: Denies chills or fever(s) ENT ENT ED: Reports rhinorrhea and sore throat Cardiovascular Cardiovascular: Reports chest pain Respiratory/Chest Respiratory/Chest: Reports cough; Denies dyspnea Gastrointestinal Gastrointestinal: Denies abdominal pain, diarrhea, nausea or vomiting Genitourinary Genitourinary ED: Denies dysuria Musculoskeletal Musculoskeletal: Reports myalgias Integumentary Denies rash Neurologic Neurologic: Denies headache(s) EXAM Physical Exam Const Vital Signs: 02/26/21 04:12 02/26/21 04:16 02/26/21 05:33 Temperature 98.6 F Temperature Source Oral Pulse Rate 93 70 Respiratory Rate 18 20 H Respiratory Effort Normal Respiratory Pattern Normal Blood Pressure 167/69 H 136/68 H Blood Pressure Mean 101 90 Pulse Ox 94 94 Oxygen Delivery Method Room Air Room Air 02/26/21 06:27 Temperature Temperature Source Pulse Rate 70 Respiratory Rate 19 H Respiratory Effort Respiratory Pattern Blood Pressure 136/60 H Blood Pressure Mean 85 Pulse Ox 94 Oxygen Delivery Method Room Air Positive well nourished and well developed General Appearance ED: well developed HEENT Reports moist mucous membranes HEENT Narrative: drainage in the posterior pharynx noted Eyes PERRL and EOMs intact bilaterally Neck supple and no JVD Chest Wall Chest Narrative: + anterior chest wall pain with palpation that patient states is the same pain she has been having. No deformity or crepitance Resp normal respiratory effort and clear to auscultation bilaterally Cardio regular rate and regular rhythm Rate: other Other Details: radial pulses are + 2/4 B/L GI normal to inspection, nondistended, normoactive bowel sounds, non-tender, non-distended and no masses GI Narrative: No pulsatile mass Auscultation: normoactive bowel sounds Palpation: soft Extremity normal to inspection Neuro oriented x3 and CN's II-XII intact bilaterally Sensorium / Orientation: alert Motor Exam: strength 5/5 throughout Psych mental status grossly normal Skin no rashes or lesions noted MDM MDM MDM Narrative Medical decision making narrative: Patient presented with history and exam consistent with viral URI leading to chest wall / intercostal strain / spasm. However with her past cardiac history a basic workup was obtained. Labs revealed no acute findings. The d-dimer is not elevated as the high value based on the patient's age would be greater than 0.7. Therefore with 2 normal troponin values and a normal cxr and resolution of symptoms with pain medication I feel pt is safe for discharge Lab Data Attestation: I reviewed the patient's lab results. Labs: Laboratory Results - last 24 hr 02/26/21 02/26/21 02/26/21 04:40 04:40 04:40 WBC 14.3 H RBC 4.06 L Hgb 12.8 Hct 37.3 MCV 91.9 MCH 31.5 MCHC 34.3 RDW Std Deviation 43.7 RDW Coeff of Manas 13.0 Plt Count 288 MPV 9.4 Immature Gran % (Auto) 0.400 Neut % (Auto) 78.6 H Lymph % (Auto) 12.0 L [place] % (Auto) 7.5 Eos % (Auto) 1.0 Baso % (Auto) 0.5 Absolute Neuts (auto) 11.3 H Absolute Lymphs (auto) 1.72 Nucleated RBC % 0 D-Dimer Quant (PE/DVT) 0.57 H* Sodium 136 Potassium 3.8 Chloride 102 Carbon Dioxide 25.0 Anion Gap 9 BUN 17 Creatinine 0.88 Estim Creat Clear Calc 40.40 Est GFR (MDRD) Af Amer 80 Est GFR (MDRD) Non-Af 66 BUN/Creatinine Ratio 19.4 Glucose 252 H Calcium 8.9 Troponin I High Sens 16 02/26/21 06:52 WBC RBC Hgb Hct MCV MCH MCHC RDW Std Deviation RDW Coeff of Manas Plt Count MPV Immature Gran % (Auto) Neut % (Auto) Lymph % (Auto) [place] % (Auto) Eos % (Auto) Baso % (Auto) Absolute Neuts (auto) Absolute Lymphs (auto) Nucleated RBC % D-Dimer Quant (PE/DVT) Sodium Potassium Chloride Carbon Dioxide Anion Gap BUN Creatinine Estim Creat Clear Calc Est GFR (MDRD) Af Amer Est GFR (MDRD) Non-Af BUN/Creatinine Ratio Glucose Calcium Troponin I High Sens 14 Discharge Plan Triage Chief Complaint: Chest Pain ED Provider: Enzo Kilpatrick Dx/Rx/DC Orders Clinical Impression: Chest wall pain, Viral upper respiratory illness Instructions: ED Strain Chest Wall Prescriptions: New methocarbamol 500 mg tablet 500 mg PO Q6H PRN (Reason: muscle pain) Qty: 40 RF: 0 hydrocodone-acetaminophen 5-325 mg tablet 1 tab PO Q6H PRN (Reason: pain) 3 Days Qty: 12 RF: 0 No Action triamterene-hydrochlorothiazid 37.5-25 mg tablet 1 tab PO QODAY RF: 0 losartan 50 mg tablet 50 mg PO DAILY RF: 0 azelastine 137 mcg (0.1 %) aerosol,spray 1 spray INTRANASAL BID RF: 0 azelastine 0.05 % drops 1 drp OPHTHALMIC BID RF: 0 loratadine [Claritin] 10 mg tablet 10 mg PO DAILY RF: 0 levothyroxine [Synthroid] 100 mcg tablet 100 mcg PO QODAY RF: 0 cascara sagrada 450 mg Capsule 450 mg PO BID RF: 0 montelukast 5 mg tablet,chewable 5 mg PO DAILY RF: 0 levothyroxine 100 mcg tablet 50 mcg PO QODAY RF: 0 fluticasone propionate 50 mcg/actuation spray,suspension 1 - 2 spray INTRANASAL DAILY RF: 0 aspirin 81 mg Tablet,Delayed Release (Dr/Ec) 81 mg PO BREAKFAST Qty: 1 RF: 0 pravastatin 40 mg tablet 40 mg PO QHS Qty: 30 RF: 12 metoprolol tartrate 25 mg tablet 25 mg PO BID Qty: 180 RF: 3 clopidogrel [Plavix] 75 mg tablet 75 mg PO QDAY Qty: 90 RF: 3 Primary Care Provider: Su Thomas Referrals: Su Thomas DO [Primary Care Provider] - Disposition Disposition: Home, Self Care
[2021-02-26 07:19] LABS: Troponin-I HS 14 pg/mL (3.0-54.0)
[2021-02-26 07:40] VITALS: BP 134/60; PULSE 75; RESP 21; O2SAT 95
== END 2021-02-26 07:41 | disposition home or self-care (01) ==
PROVIDERS: Emergency Provider Emergency Medicine; PCP Internal Medicine
DX: J06.9 Acute upper respiratory infection, unspecified (principal); R07.89 Other chest pain; R09.81 Nasal congestion; R05.9 Cough, unspecified; E03.9 Hypothyroidism, unspecified; E11.40 Type 2 diabetes mellitus with diabetic neuropathy, unspecified; E55.9 Vitamin D deficiency, unspecified; E66.9 Obesity, unspecified; Z68.33 Body mass index [BMI] 33.0-33.9, adult; M79.7 Fibromyalgia; E78.5 Hyperlipidemia, unspecified; F32.A Depression, unspecified; G47.00 Insomnia, unspecified; I10 Essential (primary) hypertension; I25.5 Ischemic cardiomyopathy; M06.9 Rheumatoid arthritis, unspecified; I25.10 Atherosclerotic heart disease of native coronary artery without angina pectoris; Z95.5 Presence of coronary angioplasty implant and graft; Z79.82 Long term (current) use of aspirin; Z79.899 Other long term (current) drug therapy
CPT/HCPCS: 71045; 80048; 84484; 85025; 85379; 87426; 93005; 96374; 96375; 99285; J7040; A4216; J2405

== ENCOUNTER 2021-05-24 14:30 | Outpatient (RCR) | payer MEDICARE, OTHER, SELFPAY ==
--- NOTE | 2021-03-05 09:41 | HP.PTEVAL_ITS ---
Patient's Visit Information CHIRAG RUFFIN is a 75 year old F referred to Physical Therapy by Dr. Su Thomas DO with a diagnosis of OA. Date of Evaluation: 03/04/21 Physical Therapist: Davon Alcantara DPT - Visit Plan Frequency: 1-2x /Week Duration: 4 Weeks Plan: Pool therapy to improve shoulder ROM and knee ROM, and strengthening of shoulder and knee muscles. Eventually once pain is more tolerable transition to land therapy. - Subjective Patient presents to physical therapy with bilateral shoulder pain (right more painful than left), upper & lower back and right knee pain. Pt states she has been taking diavocare which she states has been helping, she also took 1/2 a tramadol before coming in today. She states she has neuropathy in her Left foot. Pt states that she takes an arthritis pain formula to help some of the pain. Niharika pelaez reports today her pain is worse than she has had in years and this pain has been occurring for around 30 years. Pt states she has no stairs at her home, as she lives in a mobile home, and it is all on one floor. Pt states she has pain with showering and washing her hair due to her shoulder pain. Pt states she has numbness and tingling in 2 of her toes on her right foot, and burning pain in her left foot. Pt notes today her biggest problem is her Right shoulder. Pt states she is having significant difficulty performing daily activities such as laundry, vacuuming, and anything that involves walking around the house. She states her helps her to don her socks and shoes on. Pt is unable to cook because it is too hard to walk around. Pt states she has issues with controlling her bladder and wears depends daily. - Pain Right Shoulder Pain Intensity (Out of 10): 9 Pain Intensity Range: 7, 9 Left Shoulder Pain Intensity (Out of 10): 8 Pain Intensity Range: 0, 8 Right Knee Pain Intensity (Out of 10): 0 Pain Intensity Range: 0, 10 - Objective ROM: Right shoulder: flexion AROM 0- 34 PROM 0-65 (limited by pain) Left shoulder: flexion AROM 0-91, PROM 0-110 (limited by pain), extension , IR, ER; KNEE Right: flexion 0-10-110 (PROM 0-8- 115), Left flexion 0-120,. STRENGTH: Shoulder - unable to test strength due to significant pain. Right knee flexor 4-/5, extensor 4/5 (limited by pain), left knee flexor 4+/5, extensor 4+/5. NEURO: light touch WNL to B LE - Balance/Special Test Scores Lower Extremity Functional Score: 10 - Goals Goal 1:: LTG: Pt has improved Right shoulder ROM 0-110 degrees flexion. Goal Time Frame: 4-6 Weeks Goal 2:: STG: Pt has decreased shoulder pain 0-4/10 with movement. Goal Time Frame: 2-4 Weeks Goal 3:: LTG: Pt will be able dress independently to indicate improved daily functioning. Goal Time Frame: 4-6 Weeks Goal 4:: STG: Pt will improve LEFS disability score to < 50% to indicate improved functioning. Goal Time Frame: 2-4 Weeks - Rehabilitation Potential Physical Therapy Diagnosis: shoulder pain, knee pain, decreased shoulder ROM, decreased knee ROM Rehabilitation Potential: Fair - Anticipated Interventions Patient/Client Instruction: Educate patient on: Condition, Plan of Care For the Purpose of:: To decrease pain, To increase ROM, To improve ability to perform ADL's, To increase tolerance to activity/condition/position, To improve ability of physical actions for home/community/work/leisure, To improve health of tissue, To increase flexibility/ROM, To assume or resume ADL's, To improve tolerance to ADL's Therapeutic Exercise to Include: Strength training, Body mechanics, In an aquatic setting, Passive ROM, Active ROM For the Purpose of:: To decrease pain, To increase ROM, To improve ability to perform ADL's, To increase tolerance to activity/condition/position, To improve performance and independence with ADL's, To increase flexibility/ROM, To assume or resume ADL's, To improve health and function, To improve self management, To improve ability to perform tasks related to life management, To improve tolerance to ADL's Thank you for the opportunity to evaluate your patient. For Medicare and Medicare HMO plans, please review the plan of care and approve it. It will need to be FAXED BACK to us at [phone] for Medicare purposes. For Medicare only, by signing this I certify the plan of care. Please let me know if there are questions or concerns regarding this plan of care. Physician Signature: Date:
--- NOTE | 2021-04-01 14:58 | HP.PTREVAL ---
Dr. Su Thomas, DO, It has been my pleasure to treat CHRIAG RUFFIN over the last 6 visits for OA. Please see the progress note below for an update on the physical therapy plan of care! Subjective: Pt. reports that her L shoulder is getting better, but her knee and R shoulder are not. Pt. reports like she is getting out of her chair better. She is still having some pain in both shoulders, R worse than L. Pt. did have a scratch on her arm on R arm and had to hold on pool exercises with her R shoulder, but is able to do it now. Objective/Function: Pt. continues to be pretty debilitated with her shoulders. R shoulder AROM: flexion 50deg, abd 50deg, functional ER auditory meatus, functional IR gluteal region. L shoulder AROM: flexion 95deg, abd 90deg, functional ER C2, functional IR sacral region. MMT: R shoulder: flexion 3/5, abd 3/5 increase NW, ER 4/5 NE, IR 4/4 mild increase NW. L shoulder: flexion 4/5, abd 4/5, ER 4/5, IR 4/5, ext 5/5. GAIT: Pt. is walking with cane and is doing better. She is still methodical with her gait pattern, and fatigues quickly. She has very limited active ROM and passive is only slightly better. She is mostly limited secondary to pain. I would like her to work on slowly progressing ROM in order to get better with upper body dressing. Work on ROM in order to progress this. Plan Plan: Extending her POC x 2 a week for 4 weeks Working on shoulder ROM, strength, add in LE strengthening to increase overall strength and general stability. Balance/Gait/Functional tests - Balance/Special Test Scores Lower Extremity Functional Score: 17 Goals Goal 1:: LTG: Pt has improved Right shoulder ROM 0-110 degrees flexion. Goal Time Frame: 4-6 Weeks Goal Progress: Progressing Goal 2:: STG: Pt has decreased shoulder pain 0-4/10 with movement. Goal Time Frame: 2-4 Weeks Goal Progress: Progressing Goal 3:: LTG: Pt will be able dress independently to indicate improved daily functioning. Goal Time Frame: 4-6 Weeks Goal Progress: Progressing Goal 4:: STG: Pt will improve LEFS disability score to < 50% to indicate improved functioning. Goal Time Frame: 2-4 Weeks Goal Progress: Progressing Anticipated Interventions Patient/Client Instruction: Educate patient on: Condition, Plan of Care For the Purpose of:: To decrease pain, To increase ROM, To improve ability to perform ADL's, To increase tolerance to activity/condition/position, To improve ability of physical actions for home/community/work/leisure, To improve health of tissue, To increase flexibility/ROM, To assume or resume ADL's, To improve tolerance to ADL's Therapeutic Exercise to Include: Strength training, Body mechanics, In an aquatic setting, Passive ROM, Active ROM For the Purpose of:: To decrease pain, To increase ROM, To improve ability to perform ADL's, To increase tolerance to activity/condition/position, To improve performance and independence with ADL's, To increase flexibility/ROM, To assume or resume ADL's, To improve health and function, To improve self management, To improve ability to perform tasks related to life management, To improve tolerance to ADL's Please do not hesitate to contact me at [phone] by phone or if you have questions or concerns regarding this new plan of care! Sincerely, Davon Alcantara DPT
--- NOTE | 2021-05-24 15:03 | HP.PTDCSUM ---
It has been my pleasure to treat CHIRAG RUFFIN referred by Dr. Su Thomas DO, with the diagnosis of OA for a total of 10 visit(s). Discharge Date: 05/24/21 Please see the following information for a summary of their discharge status. Subjective: Pt. reports having 8/10 in R shoulder, 4-5/10 pain in L shoulder. Pt. reports doing well sleeping, but is unable to sleep on her R side. She reports her pain has started to go from her L shoulder to her R. She has been having increased pain in her R shoulder since her last visit in the pool. She was not sure what caused her symptoms, but her R shoulder has been progressively getting worse. No N/T noted. She is to follow up with physician on June 03. Right Shoulder Pain Intensity (Out of 10): 8 Left Shoulder Pain Intensity (Out of 10): 4 Right Knee Pain Intensity (Out of 10): 0 Lumbar Spine Pain Intensity (Out of 10): 1 % Improvement: 25 Objective/Function: ROM: AROM: L shoulder flexion 125deg, abd 90deg, functional ER C1, functional IR PSIS. R shoulder: flexion 75deg, abd 65deg, functional ER to ear, functional ER greater trochanter. PROM: L shoulder: flexion 140deg, abd 130deg, ER at side 30deg, IR 50deg. R shoulder: flexion 90deg, abd 90deg, ER at side 25deg, IR at side 50deg. She continues to have marked crepitus with all shoulder movements. High levels of pain with any R shoulder movements, both passively and actively. Pt. is limited with her ability to complete upper body dressing and is unable to effective don/doff a bra. At this point in time I would like to DC back to physician due to limited progress. She has started using a volteran gel with on her R shoulder. She continues to have limited ROM and marked increased pain with weakness. I am going to send her back to physician for further follow up. Goal 1:: LTG: Pt has improved Right shoulder ROM 0-110 degrees flexion. Goal Progress: Progressing Goal 2:: STG: Pt has decreased shoulder pain 0-4/10 with movement. Goal Progress: Progressing Goal 3:: LTG: Pt will be able dress independently to indicate improved daily functioning. Goal Progress: Not Progressing Goal 4:: STG: Pt will improve LEFS disability score to < 50% to indicate improved functioning. Goal Progress: Not Progressing Plan: DC back to physician with limited progress. Discharge Comments: Pt. was seen in aquatic setting for her B shoulders. She was seen for ROM and strengthening. She is not progressing with this and I would like her to follow up with physician due to her high levels of pain. If there are questions or concerns regarding this patient's physical therapy, please feel free to call me at [phone]. Thank you for the referral of this patient. Sincerely, Davon Alcantara, DPT Balance/Gait/Functional tests - Balance/Special Test Scores Lower Extremity Functional Score: 17 Quick DASH Score: 50.0000
== END 2021-05-24 15:12 | disposition home or self-care (01) ==
LOC: PT 14:30
PROVIDERS: PCP Internal Medicine; Referring Provider Internal Medicine; Visit Provider Internal Medicine
DX: M19.90 Unspecified osteoarthritis, unspecified site (principal)
CPT/HCPCS: 97113; 97162; 97164

== ENCOUNTER 2021-05-27 05:19 | Day surgery (SDC) | payer MEDICARE, OTHER, SELFPAY ==
[2021-05-27 06:06] VITALS: BP 147/71; PULSE 59; RESP 16; TEMP 36.2; O2SAT 99; BMI 30.4
[2021-05-27] MEDS: Lactated Ringers 1,000 ML 15 ML IV (06:14)
--- NOTE | 2021-05-27 06:30 | COLBX_PTH ---
PATIENT: CHIRAG RUFFIN LOC: EN U#:[id number] AGE/SX: 75/F ROOM: RE05/27/[address]: Dr. Severo Christie DO : 1945 BED: DIS: 05/27/2021 SPEC #: [id number] RECD: 05/27/21 10:07 STATUS: SONY CHARLES #: [id number] MARY: 05/27/21 06:[address]: Severo Christie DEPT: SURGICAL PATHOLOGY RECD BY: Sheila Ureña ENTERED: 05/27/21 11:57 SP TYPE: COLON BX OTHR DR: Dr. Su Thomas DO Tissues: COLON BIOPSY Procedures: Surgery Specimen Level IV HEADER OPERATION: Colonoscopy (MAC) PRE-OP DIAGNOSIS: Positive colorectal cancer screening using Cologuard TISSUE SUBMITTED: Splenic flexure biopsy MICROSCOPIC DIAGNOSIS Splenic flexure, biopsy: Fragments of tubular adenoma. Pigment laden macrophages consistent with melanosis coli. SJ:mert 05/28/2021 MICROSCOPIC DESCRIPTION Slides are reviewed. GROSS DESCRIPTION Received in fixative is one container labeled with the patient's name and designated splenic flexure biopsy. The specimen consists of multiple irregular fragments of light viramontes soft tissue that in aggregate measure 1 x 0.3 x 0.1 cm. The specimen is totally submitted in one cassette. / CONCEPCIÓN:mert 05/27/2021 TC:1 CPT: 40811
[2021-05-27 06:36] LABS: Bedside Glucose 147 mg/dL (70-110)
[2021-05-27 07:14] VITALS: BP 104/35; BP 147/71; PULSE 60; RESP 14; TEMP 36.5; O2SAT 100
--- NOTE | 2021-05-27 07:14 | PCM.HP.BLA ---
History and Physical Date of Admission: 05/27/21 CHIRAG RUFFIN, is a 75 F who presents to the office today for Referred to this office by her PCP for evaluation following a positive cologard test performed 02/13/21. Last cologard performed three years prior with normal results. Unable to recall last colonoscopy. Additional history of diabetes with neuropathy, HTN, fibromyalgia, hyperlipidemia, hypothyroid with thyroidmegaly, ischemic cardiomyopathy, osteoarthritis, rheumatoid arthritis, COVID 19 01/22/21. ROS Const Constitutional: Positive for fatigue Eyes Eyes: Positive for irritation ENT ENT: Positive for hearing loss Cardio Cardiology: Positive for shortness of breath Musc Musculoskeletal: Positive for abnormal gait and Arthritis Neuro Neurology: Positive for abnormal gait Endo Endocrine: Positive for fatigue Manuel/Lymp Hematologic/Lymphatic: Positive for easy bleeding Exam Const General: cooperative and comfortable Nutritional Appearance: average body habitus and well nourished HENMT Head: normal to inspection Ears: hearing grossly normal bilaterally Nose: external nose normal Face and sinus: normal facial exam Mouth: oral mucosae normal Throat: posterior oropharynx normal Eyes General: appearance normal, both eyes and all related structures Neck Neck: normal visual inspection Chest Chest palpation & inspection: normal inspection of the chest and normal palpation of entire chest wall Resp Effort & Inspection: normal respiratory effort Auscultation: Bilateral: Clear to Auscultation Cardio Palpation: normal PMI Rate: regular rate Rhythm: regular rhythm GI Inspection: normal to inspection Auscultation: normal bowel sounds Percussion: normal to percussion Palpation: no hepatosplenomegaly Skin General: no rashes or lesions noted Neuro General: patient alert Extrem General: normal to inspection Psych Affect: normal affect Quality Reporting Tobacco Screening ([facility] 138) Smoking Status: Never smoker Assessment and Plan Assessment and Plan (1) Positive colorectal cancer screening using Cologuard test: Status: Acute Plan - Dr. Elkins Friend, DO: She will undergo colonoscopy. The risk and benefits of colonoscopy were explained. Also the likelihood of a positive Cologuard in a 75-year-old is likely that this is a true positive. She was explained alternatives, risk, benefits including not withstanding bleeding, infection, sepsis, perforation, need for emergent surgery . She will have an ASA of 3. Coding Level of Care Code Off vis,new,level 3 Diagnoses Positive colorectal cancer screening using Cologuard test R19.5 I have re-examined the patient. There are no clinical changes since date of exam.
[2021-05-27 07:20] VITALS: BP 120/53; BP 147/71; PULSE 60; RESP 16; O2SAT 100
--- NOTE | 2021-05-27 07:21 | OP.CCLET_ITS ---
12/16/2021 Su Thomas [address] [place] [address] Re : Colonoscopy procedure for Siobhan Camacho Dear Dr. Thomas This procedure was performed on Thursday, May 27, 2021. My impressions and recommendations are as follows: Impressions : - Melanosis in the colon. - Diverticulosis in the sigmoid colon and in the descending colon. - One 5 mm polyp at the splenic flexure, removed with a hot snare. Resected and retrieved. - Anal stenosis Recommendations : - Discharge patient to home. - Resume previous diet. - Continue present medications. - Await pathology results. - Repeat colonoscopy in 5 years for surveillance. - Return to GI office. My findings are described in the full procedure note, which is enclosed. If I can be of further assistance, please feel free to contact me at . Sincerely, Severo Christie, 05/27/2021 7:20:30 AM This report has been signed electronically.
--- NOTE | 2021-05-27 07:21 | OP.COLON_ITS ---
Patient Name: Siobhan Camacho Procedure Date: 05/27/2021 6:07 AM Date of : 1945 Age: 75 Procedure: Colonoscopy Indications: Screening for colorectal malignant neoplasm Providers: Severo Christie DO Referring MD: Severo Christie DO Medicines: See the Anesthesia note for documentation of the administered medications Patient Profile: This is a 75 year old female. Refer to note in patient chart for documentation of history and physical. Last Colonoscopy: more than 10 years ago. Complications: No immediate complications. Procedure: Pre-Anesthesia Assessment: - Prior to the procedure, a History and Physical was performed, and patient medications and allergies were reviewed. The risks and benefits of the procedure and the sedation options and risks were discussed with the patient. All questions were answered and informed consent was obtained. Patient identification and proposed procedure were verified by the physician in the pre-procedure area. Mental Status Examination: alert and oriented. Airway Examination: normal oropharyngeal airway and neck mobility. Respiratory Examination: clear to auscultation. CV Examination: normal. Prophylactic Antibiotics: The patient does not require prophylactic antibiotics. Prior Anticoagulants: The patient has taken no previous anticoagulant or antiplatelet agents. ASA Grade Assessment: II - A patient with mild systemic disease. After reviewing the risks and benefits, the patient was deemed in satisfactory condition to undergo the procedure. The anesthesia plan was to use moderate sedation / analgesia (conscious sedation). Immediately prior to administration of medications, the patient was re-assessed for adequacy to receive sedatives. The heart rate, respiratory rate, oxygen saturations, blood pressure, adequacy of pulmonary ventilation, and response to care were monitored throughout the procedure. The physical status of the patient was re-assessed after the procedure. After I obtained informed consent, the scope was passed under direct vision. Throughout the procedure, the patient's blood pressure, pulse, and oxygen saturations were monitored continuously. The colonoscope was introduced through the anus and advanced to the cecum, identified by appendiceal orifice and ileocecal valve. The colonoscopy was performed without difficulty. The patient tolerated the procedure well. The quality of the bowel preparation was good. Moderate Sedation: Moderate (conscious) sedation was administered by the endoscopy nurse and supervised by the endoscopist. The patient's oxygen saturation, heart rate, blood pressure and response to care were monitored. Total physician intraservice time was 15 minutes. Scope In: 6:56:24 AM Scope Withdrawal Time 0 hours 11 minutes 15 seconds Scope Out: 7:11:16 AM Total Procedure Duration Time 0 hours 14 minutes 52 seconds Findings: The perianal and digital rectal examinations were normal. A diffuse area of severe melanosis was found in the entire colon. A few medium-mouthed diverticula were found in the sigmoid colon and descending colon. A 5 mm polyp was found in the splenic flexure. The polyp was sessile. The polyp was removed with a hot snare. Resection and retrieval were complete. Verification of patient identification for the specimen was done. Estimated blood loss was minimal. Impression: - Melanosis in the colon. - Diverticulosis in the sigmoid colon and in the descending colon. - One 5 mm polyp at the splenic flexure, removed with a hot snare. Resected and retrieved. - Anal stenosis Recommendation: - Discharge patient to home. - Resume previous diet. - Continue present medications. - Await pathology results. - Repeat colonoscopy in 5 years for surveillance. - Return to GI office. Procedure Code(s): --- Professional --- 17876, Colonoscopy, flexible; with removal of tumor(s), polyp(s), or other lesion(s) by snare technique 49499, 59, Moderate sedation services provided by the same physician or other qualified health personal care aide performing the diagnostic or therapeutic service that the sedation supports, requiring the presence of an independent trained observer to assist in the monitoring of the patient's level of consciousness and physiological status; initial 15 minutes of intraservice time, patient age 5 years or older CPT copyright 2017 [employer]. All rights reserved. The codes documented in this report are preliminary and upon erecting engineer review may be revised to meet current compliance requirements. Severo Christie DO 05/27/2021 7:20:30 AM This report has been signed electronically. Number of Addenda: 1 Note Initiated On: 05/27/2021 6:07 AM Addendum Number: 1 Addendum Date: 12/16/2021 6:38:18 AM MAC was used for sedation during this procedure. Severo Christie DO 12/16/2021 6:38:22 AM This report has been signed electronically.
[2021-05-27 07:25] VITALS: BP 130/68; BP 147/71; PULSE 61; RESP 16; O2SAT 99
[2021-05-27 07:29] VITALS: BP 126/60; BP 147/71; PULSE 61; RESP 16; TEMP 36.8; O2SAT 98
[2021-05-27 07:49] VITALS: BP 147/71
== END 2021-05-27 23:59 | disposition home or self-care (01) ==
LOC: EN 05:20 → AC 05:20
PROVIDERS: PCP Internal Medicine; Referring Provider Internal Medicine; Visit Provider Internal Medicine Gastroenterology
PROC: 0DJD8ZZ Inspection of Lower Intestinal Tract, Via Natural or Artificial Opening Endoscopic (ICD-10-PCS; CPT 45378; principal; 2021-05-27 06:25)
DX: D12.3 Benign neoplasm of transverse colon (principal); E11.40 Type 2 diabetes mellitus with diabetic neuropathy, unspecified; K57.30 Diverticulosis of large intestine without perforation or abscess without bleeding; Z86.16 Personal history of COVID-19; I10 Essential (primary) hypertension; E78.5 Hyperlipidemia, unspecified; I25.5 Ischemic cardiomyopathy; I25.2 Old myocardial infarction; E66.9 Obesity, unspecified; Z79.82 Long term (current) use of aspirin; Z79.899 Other long term (current) drug therapy; I25.10 Atherosclerotic heart disease of native coronary artery without angina pectoris; Z95.5 Presence of coronary angioplasty implant and graft; F41.9 Anxiety disorder, unspecified; M19.90 Unspecified osteoarthritis, unspecified site; J45.909 Unspecified asthma, uncomplicated; F32.A Depression, unspecified; M79.7 Fibromyalgia; E78.00 Pure hypercholesterolemia, unspecified; Z86.718 Personal history of other venous thrombosis and embolism; E55.9 Vitamin D deficiency, unspecified; Z68.30 Body mass index [BMI] 30.0-30.9, adult; K63.89 Other specified diseases of intestine; K62.4 Stenosis of anus and rectum
CPT/HCPCS: 45385; 82962; 87426; 88305; C9803; J7120; J2405

== ENCOUNTER 2021-06-26 13:30 | Outpatient (RCR) | payer MEDICARE, OTHER, MEDICAID, SELFPAY | END 2021-06-27 23:59 | LOC: DC 13:30 | PROVIDERS: PCP Internal Medicine; Referring Provider Internal Medicine; Visit Provider Internal Medicine | DX: E11.40 Type 2 diabetes mellitus with diabetic neuropathy, unspecified (principal) | CPT/HCPCS: 97802; G0108 ==

== ENCOUNTER 2021-07-18 14:38 | Outpatient (RCR) | payer MEDICARE, OTHER, MEDICAID, SELFPAY | END 2021-07-18 23:59 | disposition home or self-care (01) | LOC: DC 14:38 | PROVIDERS: PCP Internal Medicine; Referring Provider Internal Medicine; Visit Provider Internal Medicine | DX: E11.40 Type 2 diabetes mellitus with diabetic neuropathy, unspecified (principal) | CPT/HCPCS: 97803 ==

== ENCOUNTER → 2021-07-25 | Outpatient (CLI) | payer MEDICARE, OTHER, MEDICAID, SELFPAY ==
--- NOTE | 2021-07-25 14:46 | BI_ITS ---
MAMMOGRAPHY - BILATERAL SCREENING REASON FOR EXAM: Female, 76 years old. Routine annual screening examination. PERTINENT HISTORY: Non-contributory. TECHNIQUE: Digital bilateral breast conrad (3D mammographic acquisition) in the CC and MLO projections. 2-D mediolateral oblique (MLO) and craniocaudad (CC) views of both breasts were obtained. CAD: Full Field Digital Mammography with Computer Added Detection was performed. COMPARISON: Comparison is made with prior study dated 06/10/2018 and 04/27/2017. FINDINGS: Breast Composition: There are scattered areas of fibroglandular density. There are no dominant masses or suspicious calcifications. Stable benign-appearing bilateral axillary lymph nodes. No other significant abnormalities are identified. There has been no significant change since the prior study. BI/SCRN MAMM (CAD)W/CONRAD BILAT IMPRESSION: Stable bilateral screening mammogram. Yearly follow-up mammogram recommended. (A) ASSESSMENT CATEGORY: BIRADS Category 2: Benign. A letter regarding these results will be sent to the patient by the facility within 30 days. Approximately 10% of breast cancers are not detected by mammography. A normal mammogram should not delay biopsy of a clinically suspicious abnormality. [id number] Electronically Signed: Gareth Rojas MD at 15:41 EDT ,
--- NOTE | 2021-07-25 15:29 | BD_ITS ---
STUDY: DUAL ENERGY X-RAY ABSORPTIOMETRY / DXA REASON FOR EXAM: Female, 76 years old. Z780. Patient is postmenopausal. TECHNIQUE: Bone Mineral Density (BMD) measurements of lumbar spine and bilateral hips were obtained. COMPARISON: Comparison is made with prior study 06/10/2018. FINDINGS: Lumbar Spine (L1-L4): g/cm2 (1.331) / T-score (2.9) / Z-score (5.4) Findings are suggestive of normal bone density with a low fracture risk. Left Femur Total: g/cm2 (1.064) / T-score (1.0) / Z-score (2.9) Left Femoral Neck: g/cm2 (0.976) / T-score (1.1) / Z-score (3.4) Right Femur Total: g/cm2 (1.003) / T-score (0.5) / Z-score (2.4) Right Femoral Neck: g/cm2 (0.917) / T-score (0.6) / Z-score (2.8) The T-Scores on the most recent prior examination were: Lumbar Spine (L1-L4): There has been worsening of bone density since the previous examination. Left Femur Total: which represents a worsening of 4.4%. Right Femur Total: which represents a worsening of 8.3%. BD/Dexa Bone Density Study IMPRESSION: The patient is considered normal as outlined below according to World Madhav Organization (WHO) criteria with a low fracture risk. There has been worsening of bone density since the previous examination. Reference Information: The T-score is the number of standard deviations above or below the standard which is normal for young adults at their peak bone mineral density. The World Health Organization (WHO) interprets the T-scores as follows: Above -1 Normal bone density Between -1 and -2.5 Osteopenia Equal to / or below -2.5 Osteoporosis As a practical clinical guideline, osteopenia may be graded as follows: Mild -1 through -1.5 Moderate -1.6 through -2.0 Severe -2.1 through -2.4 The Z-score is the number of standard deviations above or below age-matched controls. A Z-score of less than -1.5 would be considered abnormal. References: 1. NIH Osteoporosis and Related Bone Diseases www osteo.org 2. International Society for Clinical Densitometry www iscd.org 3. National Osteoporosis Foundation www nof.org Electronically Signed: Gareth Rojas MD at 15:52 EDT ,
== END | disposition home or self-care (01) ==
PROVIDERS: PCP Internal Medicine; Visit Provider Internal Medicine
DX: Z12.31 Encounter for screening mammogram for malignant neoplasm of breast (principal); Z78.0 Asymptomatic menopausal state
CPT/HCPCS: 77063; 77067; 77080

== ENCOUNTER → 2021-10-01 | Outpatient (CLI) | payer MEDICARE, OTHER, MEDICAID, SELFPAY ==
[2021-10-01 17:27] LABS: Hematocrit 40.8 % (37-47); Hemoglobin 13.7 g/dL (12.0-15.0); Mean Corp Hgb Conc 33.6 g/dL (32-36); Mean Corpuscular Hgb 31.6 pg (27.0-32.0); Mean Corpuscular Volume 94.2 fL (81-99); Mean Platelet Vol. 9.5 fl (6.2-12.0); Platelet Count 317 K/mm3 (150-450); RBC Distribution Width CV 12.5 % (11.6-14.6); RBC Distribution Width SD 43.4 fl (35.1-43.9); Red Blood Count 4.33 M/mm3 (4.2-5.4); White Blood Count 8.8 K/mm3 (4.4-11.0)
[2021-10-01 17:47] LABS: Anion Gap 9 (5-15); BUN 19 mg/dL (7-18); BUN/Creat Ratio 21.1 RATIO (10-20); Calcium,Total 9.2 mg/dL (8.5-10.1); Chloride 103 mmol/L (98-107); EST Glomerular Filtration Rate 64 mL/min (>60); Est Glom Filt Rate - Afr Amer 78 mL/min (>60); Glucose 189 mg/dL (74-106); Potassium 4.1 mmol/L (3.5-5.1); Sodium Level 139 mmol/L (136-145); T4 Total, Thyroxin 8.5 ug/dL (4.8-13.9); Thyroid Stim Hormone (TSH) 2.09 uIU/mL (0.358-3.74)
== END | disposition home or self-care (01) ==
LOC: LAB 15:59
PROVIDERS: PCP Internal Medicine; Visit Provider Nurse Practitioner Family
DX: I25.10 Atherosclerotic heart disease of native coronary artery without angina pectoris (principal); R00.0 Tachycardia, unspecified; I25.5 Ischemic cardiomyopathy
CPT/HCPCS: 36415; 80048; 84436; 84443; 85027

== ENCOUNTER 2021-10-09 18:25 | Inpatient (IN) | payer MEDICARE, MEDICAID, SELFPAY ==
[2021-10-09] VITALS (14 sets, daily range): BP systolic 128–177; BP diastolic 71–107; PULSE 72–88; RESP 15–22; TEMP 36.5–36.8; O2SAT 95–99; BMI 31.4; BMI 31.5
--- NOTE | 2021-10-09 19:00 | RAD_ITS ---
STUDY: X-RAY CHEST REASON FOR EXAM: Female, 76 years old. irregular heart rhythm TECHNIQUE: AP portable COMPARISON: 02/01/2021 FINDINGS: The lungs are clear and expanded. There is no demonstrated pleural abnormality. Eventration of left hemidiaphragm Normal size heart. Normal mediastinum and bill. Normal visualized pulmonary arteries. Mildly calcified aortic arch and descending thoracic aorta. Dorsal spine and shoulders demonstrate degenerative change. Normal visualized ribs, and clavicles.. There is no demonstrated abnormality of the visualized soft tissue structures of the upper abdomen. RAD/Chest 1 View (Portable) IMPRESSION: No acute cardiopulmonary pathology Electronically Signed: Grover Barrios MD at 19:58 EDT ,
--- NOTE | 2021-10-09 19:00 | EKG12_ITS ---
Test Reason : am ekg Blood Pressure : / mmHG Vent. Rate : 087 BPM Atrial Rate : 087 BPM P-R Int : 198 ms QRS Dur : 108 ms QT Int : 398 ms P-R-T Axes : 051 032 025 degrees QTc Int : 478 ms Normal sinus rhythm Possible Inferior infarct , age undetermined Abnormal ECG Confirmed by MARA PHILLIP, AGUEDA ([id number]), acquisitions editor PRAVIN GOODEN ([id number]) on 10/10/2021 1:31:24 PM Referred By: Janice Confirmed By:JAMEL TERRY MD
--- NOTE | 2021-10-09 19:01 | ED.VIS.CHEST ---
HPI History of Present Illness Chief Complaint: Palpitations Informant: patient Onset/Context/Timing Onset: Weeks Activity at onset: sudden Timing: Intermittent Worsened By: Nothing Relieved By: Nothing Associated Symptoms: Positive for Palpitations; Negative for Nausea, Vomiting, Diaphoresis, Dyspnea, Cough, Fever, Lightheadedness or Acid Reflux Narrative Narrative: 76-year-old female history of prior CT with CAD and cardiac stents. She is also diabetic. Currently is wearing a Holter monitor which is picked up wide-complex tachycardia of the patient at home. She was sent in today to be admitted for further evaluation and work-up of this. States that time she has palpitations and feels tired. She denies any chest pain or any excessive shortness of breath. Prior Similar Symptoms: Yes Recent Illness/Hospitalization: No CVD Risk Factors: Positive for Diabetes PE Risk Factors: Negative for Recent Travel/Surgery, Recent Immobilization, Prior DVT or PE, Cancer or OCP + Smoking + >/=35 TAD Risk Factors: Negative for Marfan's Syndrome PFSH PFS Medical History Allergic rhinitis Ambulates with cane Anxiety Arthritis Asthma Atherosclerotic heart disease of [place] coronary artery without angina pectoris Back pain Cardiology follow-up encounter COVID-19 Depressive disorder Diabetes Diabetic neuropathy Dyspepsia Essential hypertension Fibromyalgia Hearing loss High cholesterol History of echocardiogram History of heart attack History of rheumatic fever History of steroid therapy History of tachycardia Hyperlipidemia Hypertension Hypothyroidism Insomnia Ischemic cardiomyopathy Left against medical advice (12/19/20) Obesity Osteoarthritis Rheumatoid arthritis Tachycardia Thyroid disease Thyromegaly Varicosities of leg Vitamin D deficiency Walker as ambulation aid Wears dentures Wears glasses Wears hearing aid Home Medications azelastine 0.05 % eye drops 1 drp ophthalmic (eye) BID 01/29/18 [History Last Taken 12/19/20] azelastine 137 mcg (0.1 %) nasal spray aerosol 1 spray intranasal BID 01/29/18 [History Last Taken 12/19/20] loratadine 10 mg tablet (Claritin) 10 mg PO DAILY 01/29/18 [History Last Taken 12/18/20] losartan 50 mg tablet 50 mg PO DAILY 01/29/18 [History Last Taken 05/27/21 50 MG] triamterene 37.5 mg-hydrochlorothiazide 25 mg tablet 1 tab PO QODAY 01/29/18 [History Last Taken 12/18/20] cascted cardrada 450 mg capsule 450 mg PO BID SUPPLEMENT 12/19/20 [History Last Taken 12/18/20] levothyroxine 100 mcg tablet 50 mcg PO QODAY THYROID 12/19/20 [History Last Taken 05/27/21 50 mcg] montelukast 5 mg chewable tablet 5 mg PO DAILY ALLERGIES 12/19/20 [History Last Taken 12/19/20] clopidogrel 75 mg tablet (Plavix) 75 mg PO QDAY #90 tabs 02/08/21 [Rx Last Taken 05/23/21] fluticasone propionate 220 mcg/actuation HFA aerosol inhaler (Flovent HFA) 1 puff inhalation QODAY 02/28/21 [History Last Taken Unknown] levothyroxine 100 mcg tablet 100 mcg PO Q OTHER DAY 02/28/21 [History Last Taken Unknown] tramadol 50 mg tablet 25 mg PO DAILY PRN Pain, Moderate 02/28/21 [History Last Taken Unknown] pravastatin 40 mg tablet 40 mg PO QHS #90 tabs 04/22/21 [Rx Last Taken Unknown] aspirin 81 mg tablet,delayed release 81 mg PO 1700 05/22/21 [History Last Taken 05/23/21] Food drops 3 drp sublingual Q OTHER DAY 05/28/21 [History Last Taken Unknown] ergocalciferol (vitamin D2) 1,250 mcg (50,000 unit) capsule 50,000 unit PO 2XW 05/28/21 [History Last Taken Unknown] fluticasone propionate 50 mcg/actuation nasal spray,suspension 1 spray intranasal BID 05/28/21 [History Last Taken Unknown] potassium chloride 10 mEq tablet,extended release(part/cryst) 10 meq PO DAILY 05/28/21 [History Last Taken Unknown] dapagliflozin 10 mg tablet (Fartomekaga) 10 mg PO DAILY per Dr. Thomas 10/08/21 [History Last Taken Unknown] metoprolol tartrate 25 mg tablet 50 mg PO BID 10/09/21 [History Last Taken Unknown] Allergy/AdvReac Type Severity Reaction Status Date / Time aspirin Allergy Intermediate heart Verified 10/09/21 18:27 races, dizziness povidone-iodine Allergy Intermediate rash Verified 10/09/21 18:27 [From Betadine] soap [From Betadine] Allergy Intermediate rash Verified 10/09/21 18:27 amitriptyline Allergy Unknown Unknown Verified 10/09/21 18:27 doxepin Allergy Unknown unknown Verified 10/09/21 18:27 guaifenesin [From Entex LA] Allergy Unknown Unknown Verified 10/09/21 18:27 latex Allergy Unknown Unknown Verified 10/09/21 18:27 phenylephrine [From Entex LA] Allergy Unknown Unknown Verified 10/09/21 18:27 phenylpropanolamine Allergy Unknown Unknown Verified 10/09/21 18:27 [From Entex LA] pseudoephedrine Allergy Unknown Unknown Verified 10/09/21 18:27 Sulfa (Sulfonamide Allergy Unknown Unknown Verified 10/09/21 18:27 Antibiotics) Family History Father Asthma Diabetes High cholesterol Heart disease Hypertension Mother Arthritis Diabetes Heart disease Hypertension Sister Arthritis Lupus Brother Arthritis Surgical History History of cardiac catheterization History of colonoscopy (05/27/21) History of coronary artery stent placement (12/20/20) History of coronary artery stent placement History of hysterectomy History of repair of rectocele Social History (Updated 10/09/21 @ 19:[address] Peg Camacho MD) household members: spouse Smoking Status: Never smoker alcohol intake: never substance use type: does not use ROS ROS ED ROS Narrative Palpitations and fatigue. Review of Systems ROS Unobtainable: Denies due to encephalopathy Constitutional Constitutional ED: Denies chills Eyes Eyes: Denies none ENT ENT ED: Denies ear pain Cardiovascular Cardiovascular: Reports palpitations and racing heartbeat; Denies as per HPI Respiratory/Chest Respiratory/Chest: Denies cough Gastrointestinal Gastrointestinal: Denies abdominal pain Genitourinary Genitourinary ED: Denies dysuria Musculoskeletal Musculoskeletal: Denies arthralgias Integumentary Denies abscess Neurologic Neurologic: Denies headache(s) Psychiatric Psychiatric: Denies anxiety Endocrine Endocrinology: Denies cold intolerance Hematologic/Lymphatic Hematologic/Lymphatic: Denies easy bleeding Allergic/Immunologic Allergic/Immunologic ED: Denies mouth swelling EXAM Physical Exam Narrative Exam Narrative: Well-appearing 76-year-old female. Vital signs are stable afebrile. Pulse ox 99% on room air. No signs hypoxia. H EENT exam unremarkable. Neck nontender. Lungs clear to auscultation. Heart regular rhythm no murmur. Abdomen soft nontender. Moving all 4 extremities. Calves are nontender without edema. Neurologically she is awake and alert with no focal motor deficits. Const Vital Signs: 10/09/21 18:25 10/09/21 18:36 10/09/21 19:05 Temperature 98.2 F Temperature Source Temporal Pulse Rate 73 Respiratory Rate 16 Respiratory Effort Normal Non-Labored Blood Pressure 152/72 H Blood Pressure Mean 98 Pulse Ox 99 98 Oxygen Delivery Method Room Air Room Air 10/09/21 19:25 Temperature Temperature Source Pulse Rate 82 Respiratory Rate 15 Respiratory Effort Blood Pressure 163/83 H Blood Pressure Mean 109 Pulse Ox 97 Oxygen Delivery Method Room Air Positive well nourished, well developed and obese; Negative for cachectic, contractures or unkempt General Appearance ED: well developed; Negative for unkempt, cachectic, contractures or pallor Nutritional Appearance: obese; Negative for cachectic HEENT Reports moist mucous membranes normocephalic and atraumatic; Negative for trauma or tenderness Eyes PERRL and EOMs intact bilaterally General Eye ED: Negative for pale conjunctiva or scleral icterus Neck no lymphadenopathy, supple and no JVD General: Negative for tenderness Chest Wall inspection of chest normal and palpation of chest normal Resp normal respiratory effort and clear to auscultation bilaterally Effort and Inspection: Negative for respiratory distress Auscultation: Negative for rales, rhonchi or wheezes Cardio regular rate, regular rhythm, S1 normal heart sound, S2 normal heart sound and no murmurs Rate: Negative for bradycardia Rhythm: Negative for abnormal rhythm GI normal to inspection, nondistended, normoactive bowel sounds, soft to palpation, non-tender, non-distended and no masses; Negative for hepatosplenomegaly Auscultation: Negative for hyperactive bowel sounds Palpation: Negative for splenomegaly or mass Back/Spine no CVA tenderness and no thoracic nor lumbar tenderness General Back: Negative for CVA tenderness Cervical Spine: Negative for cervical spine tenderness Extremity normal to inspection General Extremety ED: Negative for edema General Extremity: Negative for edema Neuro oriented x3 Sensorium / Orientation: awake, alert, oriented to person, oriented to place and oriented to time; Negative for confused, lethargic or stuporous Motor Exam: strength 5/5 throughout Psych mental status grossly normal Appearance: Negative for unkempt Attitude: No agitated Mood & Affect: Negative for depressed Skin no rashes or lesions noted and no wounds General Skin Exam: Negative for jaundice or pallor Rashes: No rashes noted Trauma: Negative for abrasion or laceration MDM MDM MDM Narrative Medical decision making narrative: 76-year-old female with known CAD, prior CT, stents with 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 Being brought in for evaluation and work-up. She will be admitted. Repeat exam patient doing well at 8:15 PM. She is already been evaluated by hospitalist and will be admitted. Lab Data Attestation: I reviewed the patient's lab results. Lab results narrative: CBC unremarkable white count 9. H&H 13 and 41. Platelets 310. Electrolytes unremarkable gap of 6. BUN of 28 creatinine 1.1. Glucose 294. Troponin normal at 13 and TSH normal at 2.3. Portable chest x-ray no acute abnormality. Labs: Laboratory Results - last 24 hr 10/09/21 10/09/21 19:37 19:37 WBC 9.4 RBC 4.41 Hgb 13.8 Hct 41.7 MCV 94.6 MCH 31.3 MCHC 33.1 RDW Std Deviation 42.8 RDW Coeff of Manas 12.2 Plt Count 310 MPV 9.2 Immature Gran % (Auto) 0.300 Neut % (Auto) 64.6 Lymph % (Auto) 23.2 [place] % (Auto) 9.8 Eos % (Auto) 1.5 Baso % (Auto) 0.6 Absolute Neuts (auto) 6.1 Absolute Lymphs (auto) 2.19 Nucleated RBC % 0 Sodium 137 Potassium 3.9 Chloride 104 Carbon Dioxide 27.0 Anion Gap 6 BUN 28 H Creatinine 1.10 H Estim Creat Clear Calc 31.81 Est GFR (MDRD) Af Amer 62 Est GFR (MDRD) Non-Af 51 L BUN/Creatinine Ratio 25.5 H Glucose 294 H Calcium 9.4 Troponin I High Sens 13 TSH 2.35 Radiography Chest X-Ray - ED: 1 View, Read by ED Physician, Read by Radiologist, Heart, Lungs, Mediastinum, Bony Structures, No Acute Disease and Chronic Changes Diagnostic Testing: Clinical Impression(s) from Imaging Studies Chest X-Ray 10/09/21 19:00 IMPRESSION: No acute cardiopulmonary pathology Electronically Signed: Grover Barrios MD at 19:58 EDT , Rhythm Strip Rhythm Strip: Sinus Rhythm Rate: 75 Ectopy: None EKG Initial EKG: Attestation: I personally reviewed and interpreted this EKG as follows: Interpretation: Sinus Rhythm and No Acute Injury Pattern Comments: Normal sinus rhythm rate of [address] of CT or ischemia. Old inferior infarct. Discharge Plan Triage Chief Complaint: Palpitations ED Provider: Arsenio Johnston Dx/Rx/DC Orders Clinical Impression: Wide-complex tachycardia, History of coronary artery disease, History of diabetes mellitus Prescriptions: No Action triamterene-hydrochlorothiazid 37.5-25 mg tablet 1 tab PO QODAY losartan 50 mg tablet 50 mg PO DAILY azelastine 137 mcg (0.1 %) aerosol,spray 1 spray INTRANASAL BID azelastine 0.05 % drops 1 drp OPHTHALMIC BID loratadine [Claritin] 10 mg tablet 10 mg PO DAILY Flovent HFA 220 mcg/actuation HFA aerosol inhaler 1 puff inhalation QODAY levothyroxine 100 mcg tablet 100 mcg PO Q OTHER DAY Rx Instructions: Alternate 50 mcg with 100 mcg tramadol 50 mg tablet 25 mg PO DAILY PRN (Reason: Pain, Moderate) potassium chloride 10 mEq tablet,ER particles/crystals 10 meq PO DAILY ergocalciferol (vitamin D2) 1,250 mcg (50,000 unit) capsule 50,000 unit PO 2XW Food drops 3 drp sublingual Q OTHER DAY cascara sagrada 450 mg Capsule 450 mg PO BID montelukast 5 mg tablet,chewable 5 mg PO DAILY Label Comments: CHEW AND SWALLOW 1 TABLET BY MOUTH ONCE DAILY levothyroxine 100 mcg tablet 50 mcg PO QODAY fluticasone propionate 50 mcg/actuation spray,suspension 1 spray INTRANASAL BID aspirin 81 mg tablet,delayed release (DR/EC) 81 mg PO 1700 metoprolol tartrate 25 mg tablet 50 mg PO BID clopidogrel [Plavix] 75 mg tablet 75 mg PO QDAY Qty: 90 3RF pravastatin 40 mg tablet 40 mg PO QHS Qty: 90 3RF Farxiga 10 mg tablet 10 mg PO DAILY Primary Care Provider: Su Thomas Referrals: Su Thomas DO [Primary Care Provider] - Disposition Disposition: Acute Care Hospital [facility]
[2021-10-09 19:41] LABS: Absolute Lymphocyte Count 2.19 X10^3/uL (0.83-4.51); Absolute Neutrophil Count 6.1 X10^3/uL (2.0-7.7); Basophil# 0.06 X10^3/uL; Basophil% 0.6 % (0-1); Eosinophil# 0.14 X10^3/uL; Eosinophils% 1.5 % (0-5); Hematocrit 41.7 % (37-47); Hemoglobin 13.8 g/dL (12.0-15.0); Lymphocyte # 2.19 X10^3/ul (0.83-4.51); Lymphocyte % 23.2 % (19-41); Mean Corp Hgb Conc 33.1 g/dL (32-36); Mean Corpuscular Hgb 31.3 pg (27.0-32.0); Mean Corpuscular Volume 94.6 fL (81-99); Mean Platelet Vol. 9.2 fl (6.2-12.0); Monocyte# 0.92 X10^3/uL; Monocyte% 9.8 % (0-10); NRBC Flagged by Analyzer 0 % (0-5); Neutrophil # 6.09 X10^3/uL (2.7-7.7); Neutrophil % 64.6 % (47-70); Platelet Count 310 K/mm3 (150-450); RBC Distribution Width CV 12.2 % (11.6-14.6); RBC Distribution Width SD 42.8 fl (35.1-43.9); Red Blood Count 4.41 M/mm3 (4.2-5.4); White Blood Count 9.4 K/mm3 (4.4-11.0)
--- NOTE | 2021-10-09 19:52 | HP.PCM.HOS_ITS ---
HPI - General General Date of Admission: 10/09/21 Date of Service: 10/09/21 Chief Complaint: Episodes of wide-complex tachycardia on Holter monitor evaluation, palpitations, fatigue. HPI Narrative The patient is a 76 y/o F w/ PMHx: Asthma with allergic rhinitis, HTN, HLD, CAD s/p PCI w/ Hx GA, Ischemic cardiomyopathy, Depression and Anxiety, Diabetes mellitus type II with neuropathy, GERD, Hx Rheumatic fever, Hypothyroidism, Rheumatoid arthritis, Fibromyalgia, Obesity who presents to the [facility] ED on 10/09/21 per her Cardiology office recommendation with history of three separate days starting this past weekend with 30, 35 minutes x 2 days and most recently seconds of palpitations with no associated chest pain, dyspnea, nausea, emesis, lightheadedness but notable recent increased fatigue prompting Cardiology office evaluation with set-up and noted episodes of wide-complex tachycardia prompting the office to request her to present to the ED for further evaluation and treatment. Work-up in the ED included T98.2 Heart 73, BP 152/72, respiratory rate 16, 99% on room air, CBC with WC 9.4, hemoglobin 13.8, platelet 310 without marked shift, BMP pending upon evaluation, troponin pending, TSH pending, EKG with sinus rhythm with no acute evidence of ischemia, chest x-ray pending upon evaluation. [facility] Medical History Allergic rhinitis Ambulates with cane Anxiety Arthritis Asthma Atherosclerotic heart disease of [place] coronary artery without angina pectoris Back pain Cardiology follow-up encounter COVID-19 Depressive disorder Diabetes Diabetic neuropathy Dyspepsia Essential hypertension Fibromyalgia Hearing loss High cholesterol History of echocardiogram History of heart attack History of rheumatic fever History of steroid therapy History of tachycardia Hyperlipidemia Hypertension Hypothyroidism Insomnia Ischemic cardiomyopathy Left against medical advice (12/19/20) Obesity Osteoarthritis Rheumatoid arthritis Tachycardia Thyroid disease Thyromegaly Varicosities of leg Vitamin D deficiency Walker as ambulation aid Wears dentures Wears glasses Wears hearing aid Home Medications azelastine 0.05 % eye drops 1 drp ophthalmic (eye) BID 01/29/18 [History Last Taken 12/19/20] azelastine 137 mcg (0.1 %) nasal spray aerosol 1 spray intranasal BID 01/29/18 [History Last Taken 12/19/20] loratadine 10 mg tablet (Claritin) 10 mg PO DAILY 01/29/18 [History Last Taken 12/18/20] losartan 50 mg tablet 50 mg PO DAILY 01/29/18 [History Last Taken 05/27/21 50 MG] triamterene 37.5 mg-hydrochlorothiazide 25 mg tablet 1 tab PO QODAY 01/29/18 [History Last Taken 12/18/20] cascara sagrada 450 mg capsule 450 mg PO BID SUPPLEMENT 12/19/20 [History Last Taken 12/18/20] levothyroxine 100 mcg tablet 50 mcg PO QODAY THYROID 12/19/20 [History Last Taken 05/27/21 50 mcg] montelukast 5 mg chewable tablet 5 mg PO DAILY ALLERGIES 12/19/20 [History Last Taken 12/19/20] clopidogrel 75 mg tablet (Plavix) 75 mg PO QDAY #90 tabs 02/08/21 [Rx Last Taken 05/23/21] fluticasone propionate 220 mcg/actuation HFA aerosol inhaler (Flovent HFA) 1 puff inhalation QODAY 02/28/21 [History Last Taken Unknown] levothyroxine 100 mcg tablet 100 mcg PO Q OTHER DAY 02/28/21 [History Last Taken Unknown] tramadol 50 mg tablet 25 mg PO DAILY PRN Pain, Moderate 02/28/21 [History Last Taken Unknown] pravastatin 40 mg tablet 40 mg PO QHS #90 tabs 04/22/21 [Rx Last Taken Unknown] aspirin 81 mg tablet,delayed release 81 mg PO 1700 05/22/21 [History Last Taken 05/23/21] Food drops 3 drp sublingual Q OTHER DAY 05/28/21 [History Last Taken Unknown] ergocalciferol (vitamin D2) 1,250 mcg (50,000 unit) capsule 50,000 unit PO 2XW 05/28/21 [History Last Taken Unknown] fluticasone propionate 50 mcg/actuation nasal spray,suspension 1 spray intranasal BID 05/28/21 [History Last Taken Unknown] potassium chloride 10 mEq tablet,extended release(part/cryst) 10 meq PO DAILY 05/28/21 [History Last Taken Unknown] dapagliflozin 10 mg tablet (Farxiga) 10 mg PO DAILY per Dr. Thomas 10/08/21 [History Last Taken Unknown] metoprolol tartrate 25 mg tablet 50 mg PO BID 10/09/21 [History Last Taken Unknown] Allergy/AdvReac Type Severity Reaction Status Date / Time aspirin Allergy Intermediate heart Verified 10/09/21 18:27 races, dizziness povidone-iodine Allergy Intermediate rash Verified 10/09/21 18:27 [From Betadine] soap [From Betadine] Allergy Intermediate rash Verified 10/09/21 18:27 amitriptyline Allergy Unknown Unknown Verified 10/09/21 18:27 doxepin Allergy Unknown unknown Verified 10/09/21 18:27 guaifenesin [From Entex [place]] Allergy Unknown Unknown Verified 10/09/21 18:27 latex Allergy Unknown Unknown Verified 10/09/21 18:27 phenylephrine [From Entex LA] Allergy Unknown Unknown Verified 10/09/21 18:27 phenylpropanolamine Allergy Unknown Unknown Verified 10/09/21 18:27 [From Entex LA] pseudoephedrine Allergy Unknown Unknown Verified 10/09/21 18:27 Sulfa (Sulfonamide Allergy Unknown Unknown Verified 10/09/21 18:27 Antibiotics) Family History Father Asthma Diabetes High cholesterol Heart disease Hypertension Mother Arthritis Diabetes Heart disease Hypertension Sister Arthritis Lupus Brother Arthritis Surgical History History of cardiac catheterization History of colonoscopy (05/27/21) History of coronary artery stent placement (12/20/20) History of coronary artery stent placement History of hysterectomy History of repair of rectocele Social History household members: spouse Smoking Status: Never smoker alcohol intake: never substance use type: does not use ROS ROS Narrative Admission Review of Systems: CONSTITUTIONAL: No weight loss, fever, chills, + weakness or fatigue. HEENT: Eyes: No visual loss, blurred vision, double vision or yellow sclerae. Ears, Nose, Throat: No hearing loss, sneezing, congestion, runny nose or sore throat. SKIN: No rash or itching, lesions, wounds. CARDIOVASCULAR: + Palpitations. No chest pain, chest pressure or chest discomfort, edema, orthopnea, syncopal events. RESPIRATORY: No shortness of breath, cough or sputum, wheezing, hemoptysis. GASTROINTESTINAL: No anorexia, nausea, vomiting or diarrhea, abdominal pain, melena, BRBPR. GENITOURINARY: No dysuria, frequency, urgency or retention. NEUROLOGICAL: No headache, dizziness, syncope, paralysis, ataxia, numbness or tingling in the extremities, focal weakness, change in bowel or bladder control, seizure. MUSCULOSKELETAL: + muscle, back pain, joint pain or stiffness. HEMATOLOGIC: No anemia, bleeding or bruising. LYMPHATICS: No enlarged nodes. No history of splenectomy. PSYCHIATRIC: + history of depression or anxiety. ENDOCRINOLOGIC: No reports of sweating, cold or heat intolerance. No polyuria or polydipsia. ALLERGIES: + history of asthma, hives, rhinitis. Vital Signs Vital Signs Vital Signs: 10/09/21 18:25 10/09/21 18:36 10/09/21 19:05 Temperature 98.2 F Temperature Source Temporal Pulse Rate 73 Respiratory Rate 16 Respiratory Effort Normal Non-Labored Blood Pressure 152/72 H Blood Pressure Mean 98 Pulse Ox 99 98 Oxygen Delivery Method Room Air Room Air 10/09/21 19:25 Temperature Temperature Source Pulse Rate 82 Respiratory Rate 15 Respiratory Effort Blood Pressure 163/83 H Blood Pressure Mean 109 Pulse Ox 97 Oxygen Delivery Method Room Air Weight Weight: 166 lb Body Mass Index (BMI) 31.4 Physical Exam Narrative Physical Examination: General: Awake, alert, oriented x 3 and cooperative, seated upright in the ED bed in no apparent distress, notes feeling fatigued but no current palpitation sensation. Skin: Normal color, normal turgor, no icterus, no cyanosis. HEENT: AT/NC, EOMI, PERRLA, MMM, no carotid bruits or JVD noted. Lungs: CTA bilaterally, moderate effort, mild decrease BL bases, no rales, ronchi or wheezing. Heart: Currently regular rate and rhythm; no gallop, rub audible. Abdomen: Soft, obese, NTTP, ND, distant normal BS, no HSM. Extremities: No cyanosis, clubbing, or edema. Neurological: Patient awake, alert, oriented as noted, cognitive function intact; pupils equally reactive to light and accommodation, cranial nerves II- XII grossly normal, moving all 4 extremities, no focal deficits, strength mildly global decreased otherwise preserved. Psychiatric: Affect appears fatigued otherwise normal, no acute evidence of depressive or anxiety feelings but noted underlying history. Results Lab / Micro Data Result Diagrams: 10/09/21 19:37 10/09/21 19:37 Labs: Laboratory Results - last 24 hr 10/09/21 19:37: WBC 9.4, RBC 4.41, Hgb 13.8, Hct 41.7, MCV 94.6, MCH 31.3, MCHC 33.1, RDW Std Deviation 42.8, RDW Coeff of [place] 12.2, Plt Count 310, MPV 9.2, Immature Gran % (Auto) 0.300, Neut % (Auto) 64.6, Lymph % (Auto) 23.2, [place] % (Auto) 9.8, Eos % (Auto) 1.5, Baso % (Auto) 0.6, Absolute Neuts (auto) 6.1, Absolute Lymphs (auto) 2.19, Nucleated RBC % 0 Assessment & Plan Assessment/Plan (1) Tachycardia: PLAN: Plan The patient is a 76 y/o F w/ PMHx: Asthma with allergic rhinitis, HTN, HLD, CAD s/p PCI w/ Hx GA, Ischemic cardiomyopathy, Depression and Anxiety, Diabetes mellitus type II with neuropathy, GERD, Hx Rheumatic fever, Hypothyroidism, Rheumatoid arthritis, Fibromyalgia, Obesity who presents to the [facility] ED on 10/09/21 per her Cardiology office recommendation with history of three separate days starting this past weekend with 30, 35 minutes x 2 days and most recently seconds of palpitations with no associated chest pain, dyspnea, nausea, emesis, lightheadedness but notable recent increased fatigue prompting Cardiology office evaluation with set-up and noted episodes of wide-complex tachycardia pro mpting request ED evaluation. #1. Fatigue, palpitation secondary to episodes of wide complex tachycardia: We will admit to PCU, maintain on cardiac monitoring, initiate amiodarone drip, awaiting initial evaluation with BMP, TSH, troponin and will additionally obtain magnesium level with supplementation of electrolytes if any deficiencies, plan pretreatment with oral prednisone, Pepcid, Benadryl given patient's allergy history in the evening 10/09/2021 and early a.m. on 10/10/2021 for planned cardiac catheterization with cardiology consulted and aware of patient's arrival, will cycle cardiac enzymes, FLP in a.m., echocardiogram quested but certainly could defer to cardiology and DC this if they feel necessary with last noted in 2020. #2. CAD with history GA, ischemic cardiomyopathy: Status post PCI, will continue patient aspirin, Plavix, metoprolol, losartan, statin therapy. As noted above #1 planned cardiac catheterization with pretreatment initiated. #3. Chronic asthma with allergic rhinitis: We will continue patient home montelukast, loratadine as well as nasal sprays with as needed albuterol if necessary, encourage head of bed and I-S. #4. Hypertension: Continue home regimen including triamterene- hydrochlorothiazide losartan, metoprolol however low threshold to hold given usage of amiodarone pending rate, PRN hydralazine. #5. Hyperlipidemia: Continue home statin regimen. AM FLP. #6. Diabetes mellitus type II with neuropathy: Hold oral home regimen, ADA diet until n.p.o. status, accu checks w/ ISS. #7. Hypothyroidism: Continue home synthroid regimen, TSH pending upon evaluation and if altered will obtain T4 as well. #8. Depression and anxiety: Noted in history, not on any medications currently, encourage continued outpatient follow-up. #9. Obesity: Weight loss and lifestyle changes encouraged. #10. Rheumatoid arthritis, fibromyalgia: Not on any chronic regimen from review of list, encourage continued outpatient follow-up with rheumatology as needed, will continue patient low-dose tramadol regimen as needed. #11. DVT prophylaxis: SCDs, hold on chemoprophylaxis given planned cardiac catheterization in AM. #12. CODE status: Patient JAKUB is her who is present and living will is currently in place. Discussed CODE status at length including difference between FULL code, DNR-CCA and DNR-CC status. Following discussions about the d ifferences in these status, requested Full Code status. Advanced Care Planning Face to Face Time: 16 minutes. Charges/Coding Visit Charges Inpatient E&M: 67570 Init Hosp L3 Procedures Hospitalists Procedures: 34245 Advncd Care Plan 30 Min
[2021-10-09 20:09] LABS: Anion Gap 6 (5-15); BUN 28 mg/dL (7-18); BUN/Creat Ratio 25.5 RATIO (10-20); Calcium,Total 9.4 mg/dL (8.5-10.1); Chloride 104 mmol/L (98-107); EST Glomerular Filtration Rate 51 mL/min (>60); Est Glom Filt Rate - Afr Amer 62 mL/min (>60); Estimated Creatinine Clearance 31.81 ml/min; Glucose 294 mg/dL (74-106); Potassium 3.9 mmol/L (3.5-5.1); Sodium Level 137 mmol/L (136-145); Thyroid Stim Hormone (TSH) 2.35 uIU/mL (0.358-3.74); Troponin-I HS (w/2H Reflex) 13 pg/mL (3.0-54.0)
--- NOTE | 2021-10-09 20:54 | ECHOD_ITS ---
Reason For Study: SVT Procedure This was a 2D Doppler, Color Flow transthoracic echocardiogram. The study was technically difficult. Exam performed portable in patient room. Left Ventricle Normal LV size. Mild segmental systolic dysfunction (see wall motion). The estimated ejection fraction is 50 %. Diastolic function is indeterminate. Posterior-Basal: Hypokinetic. Infero-Basal: Akinetic. Basal inferoseptal: Hypokinetic. Right Ventricle Normal RV size. Normal systolic function. Atria The left atrium is mildly enlarged. Normal right atrium. No doppler evidence for ASD. Mitral Valve There is mild mitral annular calcification. Extension of the mitral annular calcification onto the posterior mitral valve leaflet. Trivial mitral valve insufficiency. Tricuspid Valve Normal tricuspid valve. Trivial tricuspid valve insufficiency. Unable to estimate RV systolic pressure/pulmonary artery pressure due to technically difficult study. Aortic Valve Trisinus/trileaflet aortic valve. Mild focal aortic valve thickening. Mild focal aortic valve calcification. Mild aortic stenosis. Pulmonic Valve The pulmonic valve is not well visualized. Trivial pulmonic valve insufficiency. Great Vessels Normal sized aortic root. Pericardium/Pleural No pericardial effusion. MMode/2D Measurements & Calculations LVIDd: 4.6 cm IVSd: 0.82 cm LVOT diam: 1.9 cm LVIDs: 3.3 cm LVPWd: 0.93 cm LVOT area: 2.7 cm2 RVDd: 3.2 cm FS: 28.6 % Ao root diam: 2.8 cm LAV(MOD-bp): 36.8 ml LVAd ap4: 29.1 cm2 LAV(MOD-bp) Indexed: 21.1 ml/m2 LVLd ap4: 7.6 cm LAV(MOD-sp2): 42.8 ml EDV(MOD-sp4): 94.4 ml LAV(MOD-sp4): 31.7 ml EDV(sp4-el): 94.9 ml LVAs ap4: 17.3 cm2 LVLs ap4: 6.3 cm ESV(MOD-sp4): 41.9 ml ESV(sp4-el): 40.3 ml EF(MOD-sp4): 55.6 % EF(sp4-el): 57.5 % LVAd ap2: 31.5 cm2 SV(MOD-sp4): 52.5 ml SV(MOD-sp2): 72.9 ml LVLd ap2: 7.4 cm EDV(MOD-sp2): 116.8 ml EDV(sp2-el): 114.4 ml LVAs ap2: 17.1 cm2 LVLs ap2: 6.2 cm ESV(MOD-sp2): 44.0 ml ESV(sp2-el): 39.8 ml EF(MOD-sp2): 62.4 % SV(sp4-el): 54.5 ml LA dimension(2D): 3.7 cm LA A4 area: 13.9 cm2 RA A4 area: 10.8 cm2 Time Measurements MV dec time: 0.30 sec Doppler Measurements & Calculations MV E max jovani: 94.8 cm/sec Lat Peak E' Jovani: 6.0 cm/sec Med Peak E' Jovani: 4.2 cm/sec MV A max jovani: 99.5 cm/sec E/E' lat: 15.8 E/E' med: 22.8 MV E/A: 0.95 Ao V2 max: 205.8 cm/sec LV V1 max: 118.9 cm/sec MV dec slope: 320.9 cm/sec2 Ao max P.9 mmHg LV V1 max P.7 mmHg Ao V2 mean: 136.3 cm/sec LV V1 mean P.4 mmHg Ao mean P.8 mmHg LV V1 mean: 87.2 cm/sec Ao V2 VTI: 48.1 cm LV V1 VTI: 29.5 cm PATRICE(I,D): 1.7 cm2 PATRICE(V,D): 1.6 cm2 SV(LVOT): 80.4 ml PA V2 max: 101.2 cm/sec ECHO/Echo Complete Interpretation Summary The study was technically difficult. Mild segmental systolic dysfunction (see wall motion). The estimated ejection fraction is 50 %. The left atrium is mildly enlarged. There is mild mitral annular calcification. Extension of the mitral annular calcification onto the posterior mitral valve l eaflet. Trivial mitral valve insufficiency. Trivial tricuspid valve insufficiency. Mild focal aortic valve thickening. Mild focal aortic valve calcification. Mild aortic stenosis. Trivial pulmonic valve insufficiency. Unable to estimate RV systolic pressure/pulmonary artery pressure due to techni joe difficult study. Diastolic function is indeterminate. Ordering Physician: Peg Camacho Referring Physician: Su Thomas M.D. Performed By: Renetta Fowler RDCS
[2021-10-09 21:39] LABS: Reflex Troponin-HS? (from REC) Y
[2021-10-09] MEDS: Amiodarone 360 MG in Dextrose 5% Viaflo Bag 192.8 ML 33.3 MG CONT INF (21:40)
[2021-10-09 22:28] LABS: Troponin-I HS 17 pg/mL (3.0-54.0)
[2021-10-09] MEDS: predniSONE 20 MG Tablet 60 MG PO (22:34)
[2021-10-09] MEDS: Famotidine 20 MG Tablet PO (22:35)
[2021-10-09] MEDS: Pravastatin 40 MG Tablet PO (22:35)
[2021-10-09] MEDS: Montelukast 10 MG Tablet 5 MG PO (22:35)
[2021-10-09] MEDS: Fluticasone 0.05% 1 SPRAY NASAL.SRY NASAL (22:38)
[2021-10-09] MEDS: Azelastine HCl NASAL.SRY 1 SPRAY NASAL (22:38)
[2021-10-09] MEDS: Insulin Lispro 100 UNIT/ML INSULN.PEN SC (22:38)
[2021-10-09] MEDS: 0.9% Normal Saline 1,000 ML 100 ML IV (22:40)
[2021-10-09 23:00] LABS: Bedside Glucose 223 mg/dL (74-106)
[2021-10-09] MEDS: DiphenhydrAMINE 25 MG Capsule 50 MG PO (23:51)
[2021-10-09] MEDS: CLARIFY ORDER 1 EACH NOTE (23:52)
[2021-10-10] VITALS (24 sets, daily range): BP systolic 92–151; BP diastolic 56–93; PULSE 55–87; RESP 15–24; TEMP 36.5–37.1; O2SAT 94–98
[2021-10-10 02:27] LABS: Absolute Lymphocyte Count 0.96 X10^3/uL (0.83-4.51); Absolute Neutrophil Count 6.8 X10^3/uL (2.0-7.7); Basophil# 0.03 X10^3/uL; Basophil% 0.4 % (0-1); Eosinophil# 0.02 X10^3/uL; Eosinophils% 0.3 % (0-5); Hematocrit 41.1 % (37-47); Hemoglobin 13.9 g/dL (12.0-15.0); Lymphocyte # 0.96 X10^3/ul (0.83-4.51); Mean Corp Hgb Conc 33.8 g/dL (32-36); Mean Corpuscular Hgb 31.1 pg (27.0-32.0); Mean Corpuscular Volume 91.9 fL (81-99); Monocyte# 0.21 X10^3/uL; Monocyte% 2.6 % (0-10); NRBC Flagged by Analyzer 0 % (0-5); Neutrophil # 6.76 X10^3/uL (2.7-7.7); Neutrophil % 84.4 % (47-70); Platelet Count 300 K/mm3 (150-450); RBC Distribution Width CV 12.5 % (11.6-14.6); RBC Distribution Width SD 42.2 fl (35.1-43.9); Red Blood Count 4.47 M/mm3 (4.2-5.4)
--- NOTE | 2021-10-10 02:36 | NURSING ---
This rn assuming care of pt at this time.
[2021-10-10 03:27] LABS: ALB/GLOB Ratio 0.8 RATIO (0.9-2.4); AST(SGOT) 38 U/L (15-37); Alanine Aminotransfer ALT/SGPT 40 U/L (13-56); Albumin, Serum 3.3 g/dL (3.2-5.0); Alkaline Phosphatase 69 U/L (45-117); Anion Gap 6 (5-15); BUN 23 mg/dL (7-18); BUN/Creat Ratio 23.9 RATIO (10-20); Calcium,Total 8.9 mg/dL (8.5-10.1); Chloride 107 mmol/L (98-107); Creatinine, Serum 0.96 mg/dL (0.55-1.02); EST Glomerular Filtration Rate 60 mL/min (>60); Est Glom Filt Rate - Afr Amer 72 mL/min (>60); Estimated Creatinine Clearance 36.44 ml/min; Globulin 4.1 g/dL (2.2-4.2); Glucose 228 mg/dL (74-106); Potassium 4.4 mmol/L (3.5-5.1); Protein, Total 7.4 g/dL (6.4-8.2); Sodium Level 140 mmol/L (136-145); Troponin-I HS 19 pg/mL (3.0-54.0)
[2021-10-10] MEDS: Amiodarone 360 MG in Dextrose 5% Viaflo Bag 192.8 ML 16.7 MG CONT INF (03:31)
--- NOTE | 2021-10-10 05:55 | EKG12_ITS ---
Test Reason : PALPITATIONS Blood Pressure : / mmHG Vent. Rate : 075 BPM Atrial Rate : 075 BPM P-R Int : 174 ms QRS Dur : 106 ms QT Int : 386 ms P-R-T Axes : 090 043 036 degrees QTc Int : 431 ms Normal sinus rhythm Possible Inferior infarct , age undetermined Abnormal ECG Confirmed by MARA PHILLIP, AGUEDA ([id number]), script editor PRAVIN GOODEN ([id number]) on 10/11/2021 10:31:29 A M Referred By: JJ Confirmed By:JAMEL TERRY MD
[2021-10-10] MEDS: Clopidogrel Bisulfate 75 MG Tablet PO (06:07)
[2021-10-10] MEDS: Losartan Potassium 50 MG Tablet PO (06:07)
[2021-10-10] MEDS: Metoprolol Tartrate 50 MG Tablet PO (06:07)
[2021-10-10] MEDS: Levothyroxine 50 MCG Tablet PO (06:07)
[2021-10-10] MEDS: Aspirin E.C. 81 MG Tablet PO (06:10)
[2021-10-10] MEDS: Insulin Lispro 100 UNIT/ML INSULN.PEN SC ×3 (06:20→21:43)
[2021-10-10 06:35] LABS: Bedside Glucose 271 mg/dL (74-106)
[2021-10-10] MEDS: 0.9% Normal Saline 1,000 ML 100 ML IV ×2 (07:20→18:34)
--- NOTE | 2021-10-10 07:20 | NURSING ---
Report given to cray toledo in general production laborer.
[2021-10-10] MEDS: DiphenhydrAMINE 25 MG Capsule 50 MG PO (07:21)
[2021-10-10] MEDS: predniSONE 20 MG Tablet 60 MG PO (07:21)
[2021-10-10] MEDS: Famotidine 20 MG Tablet PO (07:22)
--- NOTE | 2021-10-10 07:31 | PCM.CONS.C ---
Assessment & Plan Assessment/Plan (1) Wide-complex tachycardia: PLAN: The patient has a presentation on her 30-day ambulatory event monitor recurrent episodes of wide-complex tachycardia concerning for ventricular tachycardia. At the present time her noninvasive valuation with respect to her cardiac enzymes have been negative. Her previous noninvasive and invasive cardiovascular evaluation was reviewed. Based upon her recurrent episodes of wide-complex tachycardia that would be concerning of progression of underlying CAD contributing to this finding. Thus it was felt reasonable to patient be reassessed of her CAD status with diagnostic cardiac catheterization. The procedure and risks of been discussed with the patient she is agreeable to this approach. In the interim she is going to continue medical therapy with rate control therapy and antiarrhythmic therapy as deemed appropriate. Depending upon the outcome of her cardiovascular evaluation she may or may not require additional tertiary care center/electrophysiology evaluation as well. (2) History of coronary artery disease: PLAN: The patient has a history of CAD as previously noted. She does not appear to have acute changes in her cardiac enzymes. She will continue risk factor modification medical therapy. Based upon the aforementioned concerns she will proceed with reevaluation of her coronary status with diagnostic cardiac catheterization. (3) History of coronary artery stent placement: PLAN: The patient's previous PCI history was reviewed. Based upon this history and concerns of its contribution to her wide-complex dysrhythmia she will undergo reassessment of her coronary status with diagnostic cardiac catheterization. In the interim she will continue medical therapy. (4) Ischemic cardiomyopathy: PLAN: The patient was reported as having findings on echocardiogram of an ischemic mediated cardiomyopathy. Her overall LV wall motion and systolic function can be reassessed to assist with her ongoing evaluation and care. She will continue medical management in the interim. (5) Hyperlipidemia: PLAN: The patient will need to continue risk factor modification medical therapy. (6) Essential hypertension: PLAN: The patient's blood pressure will need to be monitored. Her medications can be adjusted as needed. (7) Diabetes: PLAN: The patient will continue evaluation care per internal medicine. (8) Obesity: PLAN: The patient has been counseled on the past of the need to modify diet, activity, etc. as best as possible and attempt to bring her weight under better control. Addt'l Comments The patient's case was discussed and reviewed with her. She was agreeable to this approach. This note was generated using a voice recognition system and there may be incorrect words, spelling or punctuation that were not noted when reviewing the office note prior to saving. HPI Consult Data Date of Consult: 10/10/21 HPI Narrative HPI Narrative: CHIRAG RUFFIN, is a 76 year old white female who presents for cardiovascular consultation based upon event monitor findings concerning for ventricular tachycardia superimposed upon a history of underlying CAD, PCI, ischemic mediated cardiomyopathy, hyperlipidemia, hypertension, diabetes mellitus, and obesity. She has previously been evaluated by Librado Xiao M.D., in November 2020 for concerns of an acute non-ST segment elevation [place]. At that time she underwent evaluation both noninvasively and invasively. From a noninvasive standpoint she had a transthoracic echocardiogram. According to the report her left ventricle demonstrated an LVEF of 47%. She underwent diagnostic cardiac catheterization that demonstrated angiographically significant CAD. She subsequently received PCI/BRAVO to the RCA and LCx systems. It does not appear she has required additional cardiovascular diagnostic studies since that time until recently. Recently she stated she felt 2 different episodes that lasted approximately 30 minutes where she felt her heart racing . She does not recall any near-syncope or syncope. She does not recall any abrupt chest discomfort or difficulty breathing. This subsequently triggered further outpatient evaluation with a 30-day ambulatory event monitor. The event monitor is demonstrated findings compatible with sinus rhythm as well as episodes of wide-complex tachycardia concerning for ventricular tachycardia. Based upon the above findings it was recommended that she present to the [facility] emergency department for further evaluation and care including inpatient evaluation and care to reassess her cardiovascular status including her coronary status with diagnostic cardiac catheterization. She states she does not recall having any obvious symptoms that correlated with her event monitor findings. She still does not recall any near-syncope or syncope. She does not complain of any acute chest discomfort or difficulty breathing such as orthopnea or PND. She has not developed peripheral pitting edema. She states she has been taking her medications appropriately. Her cardiac enzyme has been negative. Her ECG demonstrated sinus rhythm with a possible inferior TN pattern of indeterminate age. Her previous noninvasive and invasive studies are noted below. [facility] Medical History Allergic rhinitis Ambulates with cane Anxiety Arthritis Asthma Atherosclerotic heart disease of [place] coronary artery without angina pectoris Back pain Cardiology follow-up encounter COVID-19 Depressive disorder Diabetes Diabetic neuropathy Dyspepsia Essential hypertension Fibromyalgia Hearing loss High cholesterol History of echocardiogram History of heart attack History of rheumatic fever History of steroid therapy History of tachycardia Hyperlipidemia Hypertension Hypothyroidism Insomnia Ischemic cardiomyopathy Left against medical advice (12/19/20) Obesity Osteoarthritis Rheumatoid arthritis Tachycardia Thyroid disease Thyromegaly Varicosities of leg Vitamin D deficiency Walker as ambulation aid Wears dentures Wears glasses Wears hearing aid Home Medications azelastine 0.05 % eye drops 1 drp ophthalmic (eye) BID 01/29/18 [History Last Taken 12/19/20] azelastine 137 mcg (0.1 %) nasal spray aerosol 1 spray intranasal BID 01/29/18 [History Last Taken 12/19/20] loratadine 10 mg tablet (Claritin) 10 mg PO DAILY 01/29/18 [History Last Taken 12/18/20] losartan 50 mg tablet 50 mg PO DAILY 01/29/18 [History Last Taken 05/27/21 50 MG] triamterene 37.5 mg-hydrochlorothiazide 25 mg tablet 1 tab PO QODAY water pill 01/29/18 [History Last Taken 12/18/20] cascara sagrada 450 mg capsule 450 mg PO BID SUPPLEMENT 12/19/20 [History Last Taken 12/18/20] levothyroxine 100 mcg tablet 50 mcg PO QODAY THYROID 12/19/20 [History Last Taken 05/27/21 50 mcg] montelukast 5 mg chewable tablet 5 mg PO QHS ALLERGIES 12/19/20 [History Last Taken 12/19/20] clopidogrel 75 mg tablet (Plavix) 75 mg PO QDAY #90 tabs 02/08/21 [Rx Last Taken 05/23/21] fluticasone propionate 220 mcg/actuation HFA aerosol inhaler (Flovent HFA) 1 puff inhalation QODAY 02/28/21 [History Last Taken Unknown] levothyroxine 100 mcg tablet 100 mcg PO Q OTHER DAY 02/28/21 [History Last Taken Unknown] tramadol 50 mg tablet 25 mg PO DAILY PRN Pain, Moderate 02/28/21 [History Last Taken Unknown] pravastatin 40 mg tablet 40 mg PO QHS #90 tabs 04/22/21 [Rx Last Taken Unknown] aspirin 81 mg tablet,delayed release 81 mg PO 1700 05/22/21 [History Last Taken 05/23/21] Food drops 3 drp sublingual Q OTHER DAY 05/28/21 [History Last Taken Unknown] ergocalciferol (vitamin D2) 1,250 mcg (50,000 unit) capsule 50,000 unit PO 2XW 05/28/21 [History Last Taken Unknown] fluticasone propionate 50 mcg/actuation nasal spray,suspension 1 spray intranasal BID 05/28/21 [History Last Taken Unknown] potassium chloride 10 mEq tablet,extended release(part/cryst) 10 meq PO DAILY 05/28/21 [History Last Taken Unknown] dapagliflozin 10 mg tablet (Farxiga) 10 mg PO DAILY per Dr. Thomas 10/08/21 [History Last Taken Unknown] fluorometholone 0.1 % eye drops,suspension 1 drp EACH EYE BID eye drops 10/09/21 [History Last Taken 10/08/21] metoprolol tartrate 25 mg tablet 50 mg PO BID 10/09/21 [History Last Taken Unknown] Allergy/AdvReac Type Severity Reaction Status Date / Time aspirin Allergy Intermediate heart Verified 10/09/21 18:27 races, dizziness povidone-iodine Allergy Intermediate rash Verified 10/09/21 18:27 [From Betadine] soap [From Betadine] Allergy Intermediate rash Verified 10/09/21 18:27 amitriptyline Allergy Unknown Unknown Verified 10/09/21 18:27 doxepin Allergy Unknown unknown Verified 10/09/21 18:27 guaifenesin [From Entex LA] Allergy Unknown Unknown Verified 10/09/21 18:27 latex Allergy Unknown Unknown Verified 10/09/21 18:27 phenylephrine [From Entex LA] Allergy Unknown Unknown Verified 10/09/21 18:27 phenylpropanolamine Allergy Unknown Unknown Verified 10/09/21 18:27 [From Entex LA] pseudoephedrine Allergy Unknown Unknown Verified 10/09/21 18:27 Sulfa (Sulfonamide Allergy Unknown Unknown Verified 10/09/21 18:27 Antibiotics) Family History Father Asthma Diabetes High cholesterol Heart disease Hypertension Mother Arthritis Diabetes Heart disease Hypertension Sister Arthritis Lupus Brother Arthritis Surgical History History of cardiac catheterization History of colonoscopy (05/27/21) History of coronary artery stent placement (12/20/20) History of coronary artery stent placement History of hysterectomy History of repair of rectocele Social History (Updated 10/09/21 @ 19:[address] Peg Ruffin MD) household members: spouse Smoking Status: Never smoker alcohol intake: never substance use type: does not use ROS Constitutional Constitutional: Reports as per HPI Eyes Eyes: Reports as per HPI ENT HEENT: Reports as per HPI Cardiovascular Cardiovascular: Reports palpitations Respiratory/Chest Respiratory/Chest: Reports as per HPI Gastrointestinal Gastrointestinal: Reports as per HPI Genitourinary Genitourinary: Reports as per HPI Musculoskeletal Musculoskeletal: Reports as per HPI Integumentary Integumentary: Reports as per HPI Neurologic Neurologic: Reports as per HPI Physical Exam Const alert, oriented x3 and no apparent distress HEENT normocephalic, head/scalp atraumatic and hearing grossly normal bilaterally Eyes PERRL, EOMs intact bilaterally, conjunctivae normal and no scleral icterus Neck full ROM, supple and no JVD Carotids: normal carotid upstroke Resp clear to auscultation bilaterally Cardio regular rate, regular rhythm, S1 normal heart sound and S2 normal heart sound Heart Sounds: murmur systolic II/ soft mid left sternal border, LVOT and sternal notch GI normal to inspection, nondistended, normoactive bowel sounds Extremity no pedal edema Skin no rashes or lesions noted Psych mental status grossly normal Risk Stratification Risk Stratification Applicable: No Procedure Criteria Type of Procedure Procedure Type: Elective Elective Risks - COVID COVID Risk Discussion: The surgeon/proceduralist and patient have discussed in detail the risk of exposure to and/or potential harm posed by the COVID-19 virus with having a surgery/procedure at this time versus the risk of delaying the surgery/procedure. It is not possible to know either the risk of delaying the surgery or procedure or chance of getting an infection with perfect accuracy, but a joint decision was made between the patient and the surgeon/proceduralist to proceed at this time with the scheduled surgery/procedure as indicated on the consent form. Objective Data Vital Signs: Vital Signs Temp Pulse Resp BP Pulse Ox O2 Del Method 97.7 F L 55 L 24 H 129/58 H 94 Room Air 10/10/21 03:00 10/10/21 07:00 10/10/21 03:00 10/10/21 07:00 10/10/21 03:00 10/10/21 03:08 Oxygen Delivery Method Room Air Weight: 164 lb 7.437 oz Body Mass Index (BMI) 31.5 Intake & Output: Intake and Output for Last 24 Hours 10/08/21 10/09/21 10/10/21 23:59 23:59 23:59 Intake Total 61.07 / 277.72 1261.37 / 1261.37 Balance 61.07 / 277.72 1261.37 / 1261.37 Lab / Micro Data Result Diagrams: 10/10/21 02:20 10/10/21 02:20 Labs: Laboratory Results - last 24 hr 10/09/21 19:37: WBC 9.4, RBC 4.41, Hgb 13.8, Hct 41.7, MCV 94.6, MCH 31.3, MCHC 33.1, RDW Std Deviation 42.8, RDW Coeff of [place] 12.2, Plt Count 310, MPV 9.2, Immature Gran % (Auto) 0.300, Neut % (Auto) 64.6, Lymph % (Auto) 23.2, [place] % (Auto) 9.8, Eos % (Auto) 1.5, Baso % (Auto) 0.6, Absolute Neuts (auto) 6.1, Absolute Lymphs (auto) 2.19, Nucleated RBC % 0 10/09/21 19:37: Sodium 137, Potassium 3.9, Chloride 104, Carbon Dioxide 27.0, Anion Gap 6, BUN 28 H, Creatinine 1.10 H, Estim Creat Clear Calc 31.81, Est GFR (MDRD) Af Amer 62, Est GFR (MDRD) Non-Af 51 L, BUN/Creatinine Ratio 25.5 H, Glucose 294 H, Calcium 9.4, Troponin I High Sens 13, TSH 2.35 10/09/21 19:37: Magnesium 2.0 10/09/21 22:05: Troponin I High Sens 17 10/09/21 22:28: POC Glucose 223 H 10/10/21 02:20: WBC 8.0, RBC 4.47, Hgb 13.9, Hct 41.1, MCV 91.9, MCH 31.1, MCHC 33.8, RDW Std Deviation 42.2, RDW Coeff of [place] 12.5, Plt Count 300, MPV 9.0, Immature Gran % (Auto) 0.300, Neut % (Auto) 84.4 H, Lymph % (Auto) 12.0 L, [place] % (Auto) 2.6, Eos % (Auto) 0.3, Baso % (Auto) 0.4, Absolute Neuts (auto) 6.8, Absolute Lymphs (auto) 0.96, Nucleated RBC % 0 10/10/21 02:20: Sodium 140, Potassium 4.4, Chloride 107, Carbon Dioxide 27.0, Anion Gap 6, BUN 23 H, Creatinine 0.96, Estim Creat Clear Calc 36.44, Est GFR (MDRD) Af Amer 72, Est GFR (MDRD) Non-Af 60, BUN/Creatinine Ratio 23.9 H, Glucose 228 H, Calcium 8.9, Total Bilirubin 0.20, AST 38 H, ALT 40, Alkaline Phosphatase 69, Total Protein 7.4, Albumin 3.3, Globulin 4.1, Albumin/Globulin Ratio 0.8 L 10/10/21 02:20: Troponin I High Sens 19 10/10/21 06:15: POC Glucose 271 H Rhythm Strip Rhythm Strip: Sinus Rhythm Rate: 75 Ectopy: None Cardiology Labs/Tests 10/09/21 19:37: WBC 9.4, RBC 4.41, Hgb 13.8, Hct 41.7, MCV 94.6, MCH 31.3, MCHC 33.1, Plt Count 310, MPV 9.2, Immature Gran % (Auto) 0.300, Neut % (Auto) 64.6, Lymph % (Auto) 23.2, [place] % (Auto) 9.8, Eos % (Auto) 1.5, Baso % (Auto) 0.6, Absolute Neuts (auto) 6.1, Nucleated RBC % 0 10/09/21 19:37: Sodium 137, Potassium 3.9, Chloride 104, Carbon Dioxide 27.0, Anion Gap 6, BUN 28 H, Creatinine 1.10 H, Est GFR (MDRD) Af Amer 62, Est GFR (MDRD) Non-Af 51 L, BUN/Creatinine Ratio 25.5 H, Glucose 294 H, Calcium 9.4 10/09/21 19:37: Magnesium 2.0 10/10/21 02:20: WBC 8.0, RBC 4.47, Hgb 13.9, Hct 41.1, MCV 91.9, MCH 31.1, MCHC 33.8, Plt Count 300, MPV 9.0, Immature Gran % (Auto) 0.300, Neut % (Auto) 84.4 H, Lymph % (Auto) 12.0 L, [place] % (Auto) 2.6, Eos % (Auto) 0.3, Baso % (Auto) 0.4, Absolute Neuts (auto) 6.8, Nucleated RBC % 0 10/10/21 02:20: Sodium 140, Potassium 4.4, Chloride 107, Carbon Dioxide 27.0, Anion Gap 6, BUN 23 H, Creatinine 0.96, Est GFR (MDRD) Af Amer 72, Est GFR (MDRD) Non-Af 60, BUN/Creatinine Ratio 23.9 H, Glucose 228 H, Calcium 8.9, Total Bilirubin 0.20 Rhythm: EKG: ECHO: 12-19-2020 Interpretation Summary Normal LV size. The estimated ejection fraction is 47 %. Stage 1 diastolic dysfunction. Mild to moderate segmental systolic dysfunction (see wall motion). Contrast injection was performed. Cardiac Cath: 12-20-2020 CONCLUSIONS Diffuse triple-vessel disease with focal disease noted in the left circumflex artery and lung disease noted in the mid to distal right coronary artery.? The LAD appears to be totally occluded with small distal targets. RECOMMENDATIONS PCI vrs Surgery DESCRIPTION OF? PROCEDURE The patient arrived to the procedure lab. The risks and benefits of the procedure as well as a full description of our services here and current unavailability of surgical backup were fully explained to the patient and/or their significant other prior to the catheterization. The Timeout was completed, verifying the correct patient and procedure. The patient's procedural site was prepped and draped in the usual fashion. Local anesthetic was given subcutaneously to right radial region with Lidocaine 2%. Using a modified Seldinger technique, arterial access was obtained via the right radial artery, a 6Fr sheath was inserted.? Right Coronary Artery selective angiography was then performed in multiple views using a 5 Fr. 4.0 [place] catheter. Left Coronary Artery selective angiography was performed in multiple views using a 5 Fr. 4.0 [place] catheter. Left Ventriculography was performed in CAMARENA projection using a 5 Fr. [place] catheter. LV to AO pullback pressures were then recorded. CORONARY ANGIOGRAPHY DOMINANCE:? Right Dominant LEFT HEART ASSESSMENT Left Ventricular Ejection Fraction: by LV Gram 45 % Inferior Basal Akinesis LEFT MAIN: Mild luminal irregularities LEFT ANTERIOR DESCENDING ARTERY: MID LAD: is occluded DIAGONAL 1: Ostial - 70 % Stenosis ?SEPTAL: No significant disease noted CIRCUMFLEX ARTERY: MID CIRC: 95 % Stenosis RIGHT CORONARY ARTERY: PROX RCA: Mild luminal irregularities less than 30% MID RCA: DiffuseLong 85% stenotic lesion with distal diffuse disease COLLATERAL FLOW: Collateral flow from Left to Right PCI: 12-20-2020 PCI/BRAVO to the RCA and LCx Radiography Diagnostic Testing: Radiology Impression Chest X-Ray 10/09/21 19:00 IMPRESSION: No acute cardiopulmonary pathology Electronically Signed: Grover Barrios MD at 19:58 EDT ,
--- NOTE | 2021-10-10 09:25 | PN.HOSP_ITS ---
Subjective Subjective Patient was seen and examined today, she is due to go down for a heart catheterization today. According to nursing, she has had no episodes of arrhythmias since she has been admitted yesterday. Cardiac enzymes have remained unremarkable. Objective Data Objective Data Vital Signs: Vital Signs Temp Pulse Resp BP Pulse Ox O2 Del Method 97.7 F L 56 L 24 H 129/58 H 94 Room Air 10/10/21 03:00 10/10/21 07:00 10/10/21 03:00 10/10/21 07:00 10/10/21 03:00 10/10/21 07:20 Oxygen Delivery Method Room Air Weight: 74.6 kg Body Mass Index (BMI) 31.5 Intake & Output: Intake and Output for Last 24 Hours 10/08/21 10/09/21 10/10/21 23:59 23:59 23:59 Intake Total 61.07 / 277.72 1261.37 / 1261.37 Balance 61.07 / 277.72 1261.37 / 1261.37 Lab / Micro Data Result Diagrams: 10/10/21 02:20 10/10/21 02:20 Labs: Laboratory Results - last 24 hr 10/09/21 19:37: WBC 9.4, RBC 4.41, Hgb 13.8, Hct 41.7, MCV 94.6, MCH 31.3, MCHC 33.1, RDW Std Deviation 42.8, RDW Coeff of [place] 12.2, Plt Count 310, MPV 9.2, Immature Gran % (Auto) 0.300, Neut % (Auto) 64.6, Lymph % (Auto) 23.2, [place] % (Auto) 9.8, Eos % (Auto) 1.5, Baso % (Auto) 0.6, Absolute Neuts (auto) 6.1, Absolute Lymphs (auto) 2.19, Nucleated RBC % 0 10/09/21 19:37: Sodium 137, Potassium 3.9, Chloride 104, Carbon Dioxide 27.0, Anion Gap 6, BUN 28 H, Creatinine 1.10 H, Estim Creat Clear Calc 31.81, Est GFR (MDRD) Af Amer 62, Est GFR (MDRD) Non-Af 51 L, BUN/Creatinine Ratio 25.5 H, Glucose 294 H, Calcium 9.4, Troponin I High Sens 13, TSH 2.35 10/09/21 19:37: Magnesium 2.0 10/09/21 22:05: Troponin I High Sens 17 10/09/21 22:28: POC Glucose 223 H 10/10/21 02:20: WBC 8.0, RBC 4.47, Hgb 13.9, Hct 41.1, MCV 91.9, MCH 31.1, MCHC 33.8, RDW Std Deviation 42.2, RDW Coeff of [place] 12.5, Plt Count 300, MPV 9.0, Immature Gran % (Auto) 0.300, Neut % (Auto) 84.4 H, Lymph % (Auto) 12.0 L, [place] % (Auto) 2.6, Eos % (Auto) 0.3, Baso % (Auto) 0.4, Absolute Neuts (auto) 6.8, Absolute Lymphs (auto) 0.96, Nucleated RBC % 0 10/10/21 02:20: Sodium 140, Potassium 4.4, Chloride 107, Carbon Dioxide 27.0, Anion Gap 6, BUN 23 H, Creatinine 0.96, Estim Creat Clear Calc 36.44, Est GFR (MDRD) Af Amer 72, Est GFR (MDRD) Non-Af 60, BUN/Creatinine Ratio 23.9 H, Glucose 228 H, Calcium 8.9, Total Bilirubin 0.20, AST 38 H, ALT 40, Alkaline Phosphatase 69, Total Protein 7.4, Albumin 3.3, Globulin 4.1, Albumin/Globulin Ratio 0.8 L 10/10/21 02:20: Troponin I High Sens 19 10/10/21 06:15: POC Glucose 271 H Radiography Diagnostic Testing: Radiology Impression Chest X-Ray 10/09/21 19:00 IMPRESSION: No acute cardiopulmonary pathology Electronically Signed: Grover Barrios MD at 19:58 EDT , Rhythm Strip Rhythm Strip: Sinus Rhythm Rate: 75 Ectopy: None Physical Exam Const alert, oriented x3, no apparent distress and healthy appearing General Appearance: cooperative, well kempt and well developed Orientation / Consciousness: awake, oriented to person, oriented to place and oriented to time HEENT normocephalic, head/scalp atraumatic and moist oral mucous membranes Head and Scalp: normocephalic Eyes PERRL, EOMs intact bilaterally and conjunctivae normal Neck nuchal rigidity, supple, no JVD, thyroid normal and no carotid bruits General: trachea midline Resp normal respiratory effort and clear to auscultation bilaterally Auscultation: Negative for rales, rhonchi or wheezes Cardio regular rate, regular rhythm, no murmurs, no rub and no gallops GI normal to inspection, nondistended, normoactive bowel sounds, soft to palpation, non-tender and non-distended Extremity no clubbing, cyanosis or edema Skin no rashes or lesions noted General Skin Exam: no breakdown Neuro oriented x3, CN's II-XII intact bilaterally, no focal motor deficits and no sensory deficits noted Sensorium / Orientation: awake and alert Speech: speech normal Psych affect normal Assessment & Plan Assessment/Plan (1) Wide-complex tachycardia: PLAN: Plan 1. Wide-complex tachycardia-probably ventricular tachycardia-patient will remain on an amiodarone drip at this time, she is due to have a cardiac catheterization today. Cardiology is participating in her care. #2 coronary artery disease-patient had a past history of stent placement last year, she will remain on her present medications #3 hyperlipidemia-patient will remain on her current medications #4 essential hypertension-patient will remain on her current medications #5 type 2 diabetes-patient will remain on her current diabetes medication, blood sugars will be monitored, sliding scale insulin will be administered as needed #6 hypothyroidism-patient will remain on Synthroid Charges/Coding Visit Charges Inpatient E&M: 33173 Subs Hosp L2
--- NOTE | 2021-10-10 10:01 | CL.D_ITS ---
Patient Name: CHIRAG RUFFIN Study Date: 10/10/2021 Performing: Joseph Stahl MD Ht: 61 inches 155 cm : 1945 Wt: 165.6 lbs 75 kg Age: 76 Gender: female BSA: 1.74 PROCEDURE(S) PERFORMED DC01-(26350)LHC/COR/LV IC10-(28217)FFR, CORONARY OR GRAFT, INITIAL VESSEL IC12-(84672/C9600)BRAVO W/WO PTCA, SINGLE CORONARY ARTERY IC12-(29952/C9600)BRAVO W/WO PTCA, SINGLE CORONARY ARTERY IC11-([id number])FFR, CORONARY OR GRAFT, EACH ADD'L VESSEL CLINICAL PROFILE AND INDICATIONS Indications: Cardiac Arrythmia, Suspected CAD, Cardiomyopathy Heart Failure: None Stress/Imaging Stress/Image Study Performed: No Angina Classification Anginal Classification w/in 2 Weeks: No symptoms CAD Presentations: Other: VT CONCLUSIONS Elevated Left Ventricular End Diastolic Pressure Segmented LV systolic dysfunction- Mild LVEF: by LV gram 45 % [place] Multivessel CAD RECOMMENDATIONS Risk factor modification Medical therapy Staged for FFR Referred for immediate PCI Case discussed / reviewed with Dr. Marsh of Interventional Cardiology DESCRIPTION OF PROCEDURE The patient arrived to the procedure lab. The risks and benefits of the procedure as well as a full d escription of our services here and current unavailability of surgical backup were fully explained to the patient and/or their significant other prior to the catheterization. The Timeout was completed, verifying the correct patient and procedure. The patient's procedural site was prepped and draped in the usual fashion. Local anesthetic was given subcutaneously to right radial region with Lidocaine 2% . Using a modified Seldinger technique, arterial access was obtained via the right radial artery, a 6 Fr sheath was inserted. Left Coronary Artery selective angiography was performed in multiple views u sing a 5 Fr. 4.0 [place] catheter. Right Coronary Artery selective angiography was then performed in mu ltiple views using a 5 Fr. 4.0 [place] catheter. Left Ventriculography was performed in CAMARENA projection using a 5 Fr. [place] catheter. LV to AO pullback pressures were then recorded.The arterial sheath was pulled and a TR Band was applied for hemostasis CORONARY ANGIOGRAPHY DOMINANCE: Right Dominant LEFT HEART ASSESSMENT Left Ventricular Ejection Fraction: by LV Gram 45 % Inferior Basal Akinesis Elevated Left Ventricular End Diastolic Pressure LVEDP: 28 mmHg LEFT MAIN: Angiographically normal LEFT ANTERIOR DESCENDING ARTERY: MID LAD: s/p SP and DX: occluded DIAGONAL 1: Proximal - 75 % Stenosis CIRCUMFLEX ARTERY: pre stent: 75 % Stenosis PROX CIRC: Previously placed stent is patent OM 2: Ostial - small caliber vessel: ostial: subtotally occluded c/w stent mcfp RIGHT CORONARY ARTERY: DISTAL RCA: Previously placed stent is patent RIGHT AV SEGMENT: 50 % Stenosis AORTIC ROOT: Angiographically normal COMPLICATIONS No Complications PROCEDURE MEDICATIONS Fentanyl 50 mcg IV Versed 1 mg IV Fentanyl 50 mcg IV Oxygen: 2 L/min via nasal cannula Heparin given IA 10/10/2021 08:35:28 Heparin 3000 unit(s) IV 10/10/2021 09:01:56 Solu-medrol 125 mg IV 10/10/2021 08:12:30 SUMMARY OF HEMODYNAMIC DATA Time AIR REST ECG 08:10:05 AO 137/59 (94) SA 08:38:07 LV 169/-5, 27 08:46:18 LV 168/-6, 28 08:46:24 LV 172/-4, 29 08:47:18 LV 172/-5, 32 08:47:25 LVp 173/-6, 34 08:47:32 AOp 166/66 (106) 08:47:37 Signed By Joseph Stahl MD On 10/10/2021 10:01:08 Joseph Stahl MD
[2021-10-10] MEDS: Azelastine HCl NASAL.SRY 1 SPRAY NASAL ×2 (10:40→21:41)
[2021-10-10] MEDS: Fluticasone 0.05% 1 SPRAY NASAL.SRY NASAL ×2 (10:40→21:41)
[2021-10-10] MEDS: Potassium Chloride Oral Tablet 10 MEQ PO (10:41)
[2021-10-10] MEDS: Loratadine 10 MG Tablet PO (10:41)
[2021-10-10] MEDS: Montelukast 10 MG Tablet 5 MG PO (10:54)
--- NOTE | 2021-10-10 11:28 | CASEMGMT ---
This RN CM to room to complete assessment and pt is getting ECHO at this time. CM to attempt again later. SStaten RN CM
[2021-10-10 11:35] LABS: Bedside Glucose 193 mg/dL (74-106)
--- NOTE | 2021-10-10 12:45 | CASEMGMT ---
CHRIS SMALL Assessment: Face to Face with patient for initial transition planning/care coordination assessment. CHRIS SMALL introduced self and role at [facility], pt voices understanding and consents to assessment. Pt is sitting up in bed in no distress on room air eating lunch. Pt is A/Ox4 and answers all questions appropriately. Pt does have hearing aides in place.? Care providers, pharmacy,?and demographics verified. ? Presentation: Sent from Favio's office for runs of Vtach Admitting dx: Vtach PCP: Martha Specialists: rogelio Pierce; Lincoln, heater operator; Favio, cardio Preferred Pharmacy: [facility] Insurance: [employer] A/B, [facility] Prescription Benefit:?HumanaMCR/mail order Living Will/HPOA: Pt has LW/HPOA and is aware that they are not on file at [facility]. Pt states her , Eugene Camacho, is HPOA. LNOK: Eugene Camacho, ; Prabhjot Camacho, son; Nando Gruber, grandson Living Arrangements: Pt lives with son and adult grandson, Nando Gruber, in mobile home with ramp entrance and states no concerns at home. Pt is independent with ADL's but states helps, if needed. Transportation: Pt or drives and states no transportation concerns. DME/HHC: Pt has the following DME: cane x4, walker, medical alert, BSC, shower chair, and glucometer. Pt states is working on getting motorized w/c thru her [employer] CM, Enedelia Hair. Pt also has 7 meals thru [employer] and qualified for aides but there are none to staff the hours. Pt is active with [facility] and states no hx of HHC or SNF. Pt states no concerns with going home at time of discharge. Pt is retired. Pt voices no further concerns/needs. CM to follow for any further discharge planning/needs. Advised pt to ask for CM if any further questions/concerns/needs arise, voices understanding. Pt Goal: Home Plan: Home [place] CHRIS SMALL
[2021-10-10 17:50] LABS: Bedside Glucose 323 mg/dL (74-106)
[2021-10-10] MEDS: Budesonide Respules 0.5 MG/2 ML AMPUL.NEB. INHALATION (19:32)
[2021-10-10] MEDS: Pravastatin 40 MG Tablet PO (21:42)
[2021-10-10] MEDS: Metoprolol Tartrate 25 MG Tablet 75 MG PO (21:42)
[2021-10-10 22:26] LABS: Bedside Glucose 311 mg/dL (74-106)
[2021-10-11 03:11] VITALS: PULSE 63
[2021-10-11 03:30] VITALS: BP 121/55; PULSE 64; RESP 16; TEMP 36.7; O2SAT 97
[2021-10-11] MEDS: 0.9% Normal Saline 1,000 ML 100 ML IV (03:35)
--- NOTE | 2021-10-11 05:55 | EKG12_ITS ---
Test Reason : AM EKG Blood Pressure : / mmHG Vent. Rate : 061 BPM Atrial Rate : 061 BPM P-R Int : 204 ms QRS Dur : 108 ms QT Int : 418 ms P-R-T Axes : 088 038 050 degrees QTc Int : 420 ms Normal sinus rhythm Possible Inferior infarct (cited on or before 19-DEC-2020) Abnormal ECG When compared with ECG of 10-OCT-2021 05:23, QT has shortened Confirmed by JAD PHILLIP, ROMULO ([id number]), rewrite editor RACHEL PARTIDA ([id number]) on 10/14/2021 11:43:02 AM Referred By: Janice Confirmed By:ROMULO STREET MD
[2021-10-11] MEDS: Levothyroxine 100 MCG Tablet PO (06:38)
[2021-10-11 06:58] VITALS: PULSE 64
[2021-10-11 07:00] LABS: Bedside Glucose 149 mg/dL (74-106)
[2021-10-11 07:01] LABS: ALB/GLOB Ratio 0.6 RATIO (0.9-2.4); AST(SGOT) 27 U/L (15-37); Alanine Aminotransfer ALT/SGPT 30 U/L (13-56); Albumin, Serum 2.3 g/dL (3.2-5.0); Alkaline Phosphatase 50 U/L (45-117); Anion Gap 5 (5-15); BUN 24 mg/dL (7-18); BUN/Creat Ratio 25.8 RATIO (10-20); Calcium,Total 7.8 mg/dL (8.5-10.1); Chloride 115 mmol/L (98-107); Creatinine, Serum 0.93 mg/dL (0.55-1.02); EST Glomerular Filtration Rate 62 mL/min (>60); Est Glom Filt Rate - Afr Amer 75 mL/min (>60); Estimated Creatinine Clearance 37.62 ml/min; Globulin 3.6 g/dL (2.2-4.2); Glucose 154 mg/dL (74-106); Potassium 4.3 mmol/L (3.5-5.1); Protein, Total 5.9 g/dL (6.4-8.2); Sodium Level 138 mmol/L (136-145)
[2021-10-11 07:07] LABS: Absolute Lymphocyte Count 2.66 X10^3/uL (0.83-4.51); Absolute Neutrophil Count 10.7 X10^3/uL (2.0-7.7); Basophil# 0.04 X10^3/uL; Basophil% 0.3 % (0-1); Eosinophil# 0.03 X10^3/uL; Eosinophils% 0.2 % (0-5); Hematocrit 37.1 % (37-47); Hemoglobin 12.2 g/dL (12.0-15.0); Lymphocyte # 2.66 X10^3/ul (0.83-4.51); Lymphocyte % 17.9 % (19-41); Mean Corp Hgb Conc 32.9 g/dL (32-36); Mean Corpuscular Hgb 31.5 pg (27.0-32.0); Mean Corpuscular Volume 95.9 fL (81-99); Mean Platelet Vol. 9.2 fl (6.2-12.0); Monocyte# 1.29 X10^3/uL; Monocyte% 8.7 % (0-10); NRBC Flagged by Analyzer 0 % (0-5); Neutrophil # 10.73 X10^3/uL (2.7-7.7); Neutrophil % 72.4 % (47-70); Platelet Count 259 K/mm3 (150-450); RBC Distribution Width CV 12.7 % (11.6-14.6); RBC Distribution Width SD 44.7 fl (35.1-43.9); Red Blood Count 3.87 M/mm3 (4.2-5.4); White Blood Count 14.8 K/mm3 (4.4-11.0)
[2021-10-11] MEDS: Budesonide Respules 0.5 MG/2 ML AMPUL.NEB. INHALATION (07:09)
[2021-10-11] MEDS: Albuterol 2.5 MG/3 ML VIAL.NEB. INHALATION (07:09)
[2021-10-11 07:11] VITALS: PULSE 63; RESP 18; O2SAT 96
--- NOTE | 2021-10-11 08:39 | PCM.PN.CARD ---
Subjective Subjective Patient is awake and alert. She denies any ongoing chest discomfort or difficulty breathing or palpitations at this time. Objective Data Vital Signs: Vital Signs Temp Pulse Resp BP Pulse Ox O2 Del Method 98.1 F 63 18 121/55 H 96 Room Air 10/11/21 03:30 10/11/21 07:11 10/11/21 07:11 10/11/21 03:30 10/11/21 07:11 10/11/21 07:11 Oxygen Delivery Method Room Air Weight: 166 lb 0.129 oz Body Mass Index (BMI) 31.5 Intake & Output: Intake and Output for Last 24 Hours 10/09/21 10/10/21 10/11/21 23:59 23:59 23:59 Intake Total 61.07 / 277.72 3138.21 / 3258.21 1321.67 / 1321.67 Output Total 600 / 600 Balance 61.07 / 277.72 2538.21 / 2658.21 1321.67 / 1321.67 Lab / Micro Data Result Diagrams: 10/11/21 07:00 10/11/21 06:35 Labs: Laboratory Results - last 24 hr 10/10/21 10:59: POC Glucose 193 H 10/10/21 16:43: POC Glucose 323 H 10/10/21 21:38: POC Glucose 311 H 10/11/21 06:35: Sodium 138, Potassium 4.3, Chloride 115 H, Carbon Dioxide 18.0 L, Anion Gap 5, BUN 24 H, Creatinine 0.93, Estim Creat Clear Calc 37.62, Est GFR (MDRD) Af Amer 75, Est GFR (MDRD) Non-Af 62, BUN/Creatinine Ratio 25.8 H, Glucose 154 H, Calcium 7.8 L, Total Bilirubin 0.20, AST 27, ALT 30, Alkaline Phosphatase 50, Total Protein 5.9 L, Albumin 2.3 L, Globulin 3.6, Albumin/Globulin Ratio 0.6 L 10/11/21 06:36: POC Glucose 149 H 10/11/21 07:00: WBC 14.8 H, RBC 3.87 L, Hgb 12.2, Hct 37.1, MCV 95.9, MCH 31.5, MCHC 32.9, RDW Std Deviation 44.7 H, RDW Coeff of [place] 12.7, Plt Count 259, MPV 9.2, Immature Gran % (Auto) 0.500, Neut % (Auto) 72.4 H, Lymph % (Auto) 17.9 L, [place] % (Auto) 8.7, Eos % (Auto) 0.2, Baso % (Auto) 0.3, Absolute Neuts (auto) 10.7 H, Absolute Lymphs (auto) 2.66, Nucleated RBC % 0 Rhythm Strip Rhythm Strip: Sinus Rhythm Rate: 75 Ectopy: None Cardiology Labs/Tests 10/11/21 06:35: Sodium 138, Potassium 4.3, Chloride 115 H, Carbon Dioxide 18.0 L, Anion Gap 5, BUN 24 H, Creatinine 0.93, Est GFR (MDRD) Af Amer 75, Est GFR (MDRD) Non-Af 62, BUN/Creatinine Ratio 25.8 H, Glucose 154 H, Calcium 7.8 L, Total Bilirubin 0.20 10/11/21 07:00: WBC 14.8 H, RBC 3.87 L, Hgb 12.2, Hct 37.1, MCV 95.9, MCH 31.5, MCHC 32.9, Plt Count 259, MPV 9.2, Immature Gran % (Auto) 0.500, Neut % (Auto) 72.4 H, Lymph % (Auto) 17.9 L, [place] % (Auto) 8.7, Eos % (Auto) 0.2, Baso % (Auto) 0.3, Absolute Neuts (auto) 10.7 H, Nucleated RBC % 0 Rhythm: Sinus rhythm EKG: Sinus rhythm; possible inferior [place] of indeterminate age; nonspecific T wave abnormality Radiography Diagnostic Testing: Radiology Impression Echocardiogram 10/09/21 20:54 Interpretation Summary The study was technically difficult. Mild segmental systolic dysfunction (see wall motion). The estimated ejection fraction is 50 %. The left atrium is mildly enlarged. There is mild mitral annular calcification. Extension of the mitral annular calcification onto the posterior mitral valve leaflet. Trivial mitral valve insufficiency. Trivial tricuspid valve insufficiency. Mild focal aortic valve thickening. Mild focal aortic valve calcification. Mild aortic stenosis. Trivial pulmonic valve insufficiency. Unable to estimate RV systolic pressure/pulmonary artery pressure due to technically difficult study. Diastolic function is indeterminate. Ordering Physician: Peg Camacho Referring Physician: Su Thomas M.D. Performed By: Renetta Fowler RDCS Physical Exam Const alert, oriented x3 and no apparent distress HEENT normocephalic, head/scalp atraumatic and hearing grossly normal bilaterally Eyes PERRL, EOMs intact bilaterally, conjunctivae normal and no scleral icterus Neck full ROM, supple and no JVD Carotids: normal carotid upstroke Resp clear to auscultation bilaterally Cardio regular rate, regular rhythm, S1 normal heart sound and S2 normal heart sound Heart Sounds: murmur systolic II/ soft mid left sternal border, LVOT and sternal notch GI normal to inspection, nondistended, normoactive bowel sounds Extremity no pedal edema Extremity Narrative: Right radial artery: Pulses 2+/4+: No bruit: No hematoma Skin no rashes or lesions noted Psych mental status grossly normal Assessment & Plan Assessment/Plan (1) Wide-complex tachycardia: PLAN: The patient has a presentation on her 30-day ambulatory event monitor recurrent episodes of wide-complex tachycardia concerning for ventricular tachycardia. At the present time her noninvasive valuation with respect to her cardiac enzymes have been negative. Her previous noninvasive and invasive cardiovascular evaluation was reviewed. She has undergone subsequent noninvasive valuation with a transthoracic echocardiogram. She demonstrates left ventricular regional wall motion abnormalities. Her overall LVEF is approximately 50% She has undergone additional evaluation with diagnostic cardiac catheterization. She demonstrated progression of her [place] vessel disease. She subsequently received PCI/BRAVO to the diagonal branch system and the LCx system. The right AV segment system underwent FFR which was negative and thus she did not receive PCI to that area. She has had no obvious recurrent wide-complex dysrhythmia reported during her hospitalization. She is continuing medical therapy with her beta-marty. Her case was discussed with Dr. Swain of [facility] electrophysiology/[facility]. Status post review of her case the recommendation was to consider future electrophysiology evaluation/EPS in approximately 1 month to help guide further evaluation and care of her underlying cardiac ectopy/dysrhythmia. (2) History of coronary artery disease: PLAN: The patient has a history of CAD as previously noted. She has undergone subsequent cardiac catheterization requiring additional PCI. She will continue risk factor modification medical therapy. (3) History of coronary artery stent placement: PLAN: The patient's previous PCI history was reviewed. She has subsequently seen additional PCI to the diagonal branch system and the LCx system. She will continue medical therapy. (4) Ischemic cardiomyopathy: PLAN: The patient was reported as having findings on echocardiogram of an ischemic mediated cardiomyopathy. Her left ventricle has been reassessed both with noninvasive and invasive studies. At the moment she will continue medical management. (5) Hyperlipidemia: PLAN: The patient will need to continue risk factor modification medical therapy. (6) Essential hypertension: PLAN: The patient's blood pressure will need to be monitored. Her medications can be adjusted as needed. (7) Diabetes: PLAN: The patient will continue evaluation care per internal medicine. (8) Obesity: PLAN: The patient has been counseled on the past of the need to modify diet, activity, etc. as best as possible and attempt to bring her weight under better control. Addt'l Comments Overall, at the present time, she appears to be symptomatically and hemodynamically stable. She will continue medical therapy. She will continue her outpatient ambulatory event monitor. She will be scheduled for future evaluation by EPS to help guide further evaluation care of her history of wide-complex dysrhythmia. The patient's case was discussed and reviewed with the patient. She was agreeable to this approach. The patient's case has also been discussed and reviewed with Dr. Rao. This note was generated using a voice recognition system and there may be incorrect words, spelling or punctuation that were not noted when reviewing the office note prior to saving. Procedure Criteria Type of Procedure Procedure Type: Elective Elective Risks - COVID COVID Risk Discussion: The surgeon/proceduralist and patient have discussed in detail the risk of exposure to and/or potential harm posed by the COVID-19 virus with having a surgery/procedure at this time versus the risk of delaying the surgery/procedure. It is not possible to know either the risk of delaying the surgery or procedure or chance of getting an infection with perfect accuracy, but a joint decision was made between the patient and the surgeon/proceduralist to proceed at this time with the scheduled surgery/procedure as indicated on the consent form.
[2021-10-11 08:45] VITALS: BP 121/52; PULSE 74; RESP 14; TEMP 37; O2SAT 95
[2021-10-11] MEDS: Fluticasone 0.05% 1 SPRAY NASAL.SRY NASAL (09:35)
[2021-10-11] MEDS: Losartan Potassium 50 MG Tablet PO (09:36)
[2021-10-11] MEDS: Potassium Chloride Oral Tablet 10 MEQ PO (09:36)
[2021-10-11] MEDS: Loratadine 10 MG Tablet PO (09:36)
[2021-10-11 09:37] VITALS: BP 121/52; PULSE 74
[2021-10-11] MEDS: Azelastine HCl NASAL.SRY 1 SPRAY NASAL (09:37)
[2021-10-11] MEDS: Clopidogrel Bisulfate 75 MG Tablet PO (09:37)
[2021-10-11] MEDS: Metoprolol Tartrate 100 MG Tablet PO (09:37)
--- NOTE | 2021-10-11 10:16 | DCINST_ITS ---
Discharge Instructions Diet Discharge Diet: 1800 Calorie Control Diet Activity Discharge Activity: Return to Normal Activity Weight Bearing Status: Full weight bearing Follow Up Care Test Results: Test results from this visit will be discussed in further detail at your follow- up appointment, if applicable. Discharge Plan Admission Admit Date/Time: 10/09/21 19:33 Primary Reason for Your Visit: V-Tach, occlusive coronary disease Attending Provider: Mo Rao Primary Care Provider: Su Thomas Consulting Providers: Joseph Stahl ; Peg Camacho Discharge Orders/Prescriptions Prescriptions: New metoprolol tartrate 100 mg Tablet 100 mg PO BID Qty: 60 0RF Continued triamterene-hydrochlorothiazid 37.5-25 mg tablet 1 tab PO QODAY losartan 50 mg tablet 50 mg PO DAILY azelastine 137 mcg (0.1 %) aerosol,spray 1 spray INTRANASAL BID azelastine 0.05 % drops 1 drp OPHTHALMIC BID loratadine [Claritin] 10 mg tablet 10 mg PO DAILY Flovent HFA 220 mcg/actuation HFA aerosol inhaler 1 puff inhalation QODAY levothyroxine 100 mcg tablet 100 mcg PO Q OTHER DAY Rx Instructions: Alternate 50 mcg with 100 mcg tramadol 50 mg tablet 25 mg PO DAILY PRN (Reason: Pain, Moderate) potassium chloride 10 mEq tablet,ER particles/crystals 10 meq PO DAILY ergocalciferol (vitamin D2) 1,250 mcg (50,000 unit) capsule 50,000 unit PO 2XW Food drops 3 drp sublingual Q OTHER DAY cascara [place] 450 mg Capsule 450 mg PO BID montelukast 5 mg tablet,chewable 5 mg PO QHS Label Comments: CHEW AND SWALLOW 1 TABLET BY MOUTH ONCE DAILY levothyroxine 100 mcg tablet 50 mcg PO QODAY fluticasone propionate 50 mcg/actuation spray,suspension 1 spray INTRANASAL BID aspirin 81 mg tablet,delayed release (DR/EC) 81 mg PO 1700 fluorometholone 0.1 % Drops,Suspension 1 drp EACH EYE BID clopidogrel [Plavix] 75 mg tablet 75 mg PO QDAY Qty: 90 3RF pravastatin 40 mg tablet 40 mg PO QHS Qty: 90 3RF Farxiga 10 mg tablet 10 mg PO DAILY Discontinued metoprolol tartrate 25 mg tablet 50 mg PO BID Referrals / Follow Up: Martha,Su, DO [Primary Care Provider] - Within 2 Weeks Joseph Stahl MD [STAFF PHYSICIAN] - See Referral Note (call office to schedule appointment) Disposition Disposition (needs filled in before D/C Order can be placed): Home, Self Care
--- NOTE | 2021-10-11 10:29 | DS.PCM_ITS ---
Providers Date of Admission: 10/09/21 Date of Discharge: 10/11/21 Primary Care Physician: Dr. Su Thomas, Consultations 10/09/21 20:54 Consult: Cardiology Routine Consulting Provider: Joseph Stahl Reason for Consult: SVT EMERGENT Consult: No MD Notified: Yes Date Notified: 10/09/21 Time Notified: 19:37 Method of Notification: sent patient to ED Reason For Visit: SVT Diagnosis Discharge Diagnosis (1) Wide-complex tachycardia: Status: Acute Code(s): I47.2 - Ventricular tachycardia (2) History of coronary artery disease: Status: Acute Code(s): Z86.79 - Personal history of other diseases of the circulatory system (3) History of coronary artery stent placement: Status: Chronic Code(s): Z95.5 - Presence of coronary angioplasty implant and graft (4) Ischemic cardiomyopathy: Status: Chronic Code(s): I25.5 - Ischemic cardiomyopathy (5) Hyperlipidemia: Status: Chronic Code(s): E78.5 - Hyperlipidemia, unspecified (6) Essential hypertension: Status: Chronic Code(s): I10 - Essential (primary) hypertension (7) Diabetes: Status: Chronic Code(s): E11.9 - Type 2 diabetes mellitus without complications (8) Obesity: Status: Chronic Code(s): E66.9 - Obesity, unspecified Plan 1. Wide-complex tachycardia-probably ventricular tachycardia #2 Occlusive coronary artery disease in the circumflex artery and the diagonal branch of the left coronary artery #3 hyperlipidemia-patient will remain on her current medications #4 essential hypertension-patient will remain on her current medications #5 type 2 diabetes-patient will remain on her current diabetes medication, blood sugars will be monitored, sliding scale insulin will be administered as needed #6 hypothyroidism-patient will remain on Synthroid Medications at Discharge Home Medications azelastine 0.05 % eye drops 1 drp ophthalmic (eye) BID 01/29/18 azelastine 137 mcg (0.1 %) nasal spray aerosol 1 spray intranasal BID 01/29/18 loratadine 10 mg tablet (Claritin) 10 mg PO DAILY 01/29/18 losartan 50 mg tablet 50 mg PO DAILY 01/29/18 triamterene 37.5 mg-hydrochlorothiazide 25 mg tablet 1 tab PO QODAY water pill 01/29/18 cascara sagrada 450 mg capsule 450 mg PO BID SUPPLEMENT 12/19/20 levothyroxine 100 mcg tablet 50 mcg PO QODAY THYROID 12/19/20 montelukast 5 mg chewable tablet 5 mg PO QHS ALLERGIES 12/19/20 clopidogrel 75 mg tablet (Plavix) 75 mg PO QDAY #90 tabs 02/08/21 fluticasone propionate 220 mcg/actuation HFA aerosol inhaler (Flovent HFA) 1 puff inhalation QODAY 02/28/21 levothyroxine 100 mcg tablet 100 mcg PO Q OTHER DAY 02/28/21 tramadol 50 mg tablet 25 mg PO DAILY PRN Pain, Moderate 02/28/21 pravastatin 40 mg tablet 40 mg PO QHS #90 tabs 04/22/21 aspirin 81 mg tablet,delayed release 81 mg PO 1700 05/22/21 Food drops 3 drp sublingual Q OTHER DAY 05/28/21 ergocalciferol (vitamin D2) 1,250 mcg (50,000 unit) capsule 50,000 unit PO 2XW 05/28/21 fluticasone propionate 50 mcg/actuation nasal spray,suspension 1 spray intranasal BID 05/28/21 potassium chloride 10 mEq tablet,extended release(part/cryst) 10 meq PO DAILY 05/28/21 dapagliflozin 10 mg tablet (Farxiga) 10 mg PO DAILY per Dr. Thomas 10/08/21 fluorometholone 0.1 % eye drops,suspension 1 drp EACH EYE BID eye drops 10/09/21 metoprolol tartrate 100 mg tablet 100 mg PO BID #60 tabs 10/11/21 Hospital Course Operations None Procedures Cardiac catheterization (With drug-eluting stent placement in the circumflex artery and diagonal branch of the left coronary artery) Summary of Care Provided Minutes Spent on Discharge: 31 Hospital Course: This 76-year-old white female was seen in the emergency room at [facility] after being directed to go there for evaluation following an abnormal Holter monitor done as an outpatient which showed a wide-complex tachycardia that was felt to be ventricular tachycardia. Work-up in the emergency room included labs, chest x-ray, and an EKG which were unremarkable. Patient was admitted to PCU, she was placed on an amiodarone drip, and the following day she underwent a cardiac catheterization which revealed occlusive coronary disease in the circumflex artery and diagonal branch of the left coronary artery-these 2 areas were stented. Patient had no untoward effects from the intervention. Patient's IV amiodarone was stopped and she was put on an increased dose of the beta-marty. There were no significant arrhythmias during her hospital stay. On 10/11/2021, patient was seen and examined: On examination she appeared in good health and spirits, she does not appear to be in any distress. Vital signs as documented. Skin warm and dry and without overt rashes. Neck without JVD, thyroid appears normal, trachea is midline, neck is supple. Lungs clear, normal air movement was noted. Heart exam notable for regular rhythm, normal sounds and absence of murmurs, rubs or gallops. Abdomen unremarkable and without evidence of organomegaly, masses, or abdominal aortic enlargement, bowel sounds are pre sent in all 4 quadrants, no abdominal tenderness was noted. Extremities nonedematous, no cyanosis was noted, no clubbing was noted. Neuro: Cranial nerves II through XII are grossly intact, no focal motor deficits were noted, sensation to light touch and pinprick is intact, motor exam 5/5 throughout. Psych: Patient is alert and oriented x3, she does not appear anxious or depressed, she does not appear agitated. Patient appears stable for discharge home on 10/11/2021. Weight / BMI Weight Weight: 75.3 kg Body Mass Index (BMI) 31.5 ABG / Lab / Microbiology Data Result Diagrams: 10/11/21 07:00 10/11/21 06:35 Laboratory: Laboratory Results - last 24 hr 10/10/21 10:59: POC Glucose 193 H 10/10/21 16:43: POC Glucose 323 H 10/10/21 21:38: POC Glucose 311 H 10/11/21 06:35: Sodium 138, Potassium 4.3, Chloride 115 H, Carbon Dioxide 18.0 L , Anion Gap 5, BUN 24 H, Creatinine 0.93, Estim Creat Clear Calc 37.62, Est GFR (MDRD) Af Amer 75, Est GFR (MDRD) Non-Af 62, BUN/Creatinine Ratio 25.8 H, Glucose 154 H, Calcium 7.8 L, Total Bilirubin 0.20, AST 27, ALT 30, Alkaline Phosphatase 50, Total Protein 5.9 L, Albumin 2.3 L, Globulin 3.6, Albumin/Globulin Ratio 0.6 L 10/11/21 06:36: POC Glucose 149 H 10/11/21 07:00: WBC 14.8 H, RBC 3.87 L, Hgb 12.2, Hct 37.1, MCV 95.9, MCH 31.5, MCHC 32.9, RDW Std Deviation 44.7 H, RDW Coeff of Manas 12.7, Plt Count 259, MPV 9.2, Immature Gran % (Auto) 0.500, Neut % (Auto) 72.4 H, Lymph % (Auto) 17.9 L, Mcdowell % (Auto) 8.7, Eos % (Auto) 0.2, Baso % (Auto) 0.3, Absolute Neuts (auto) 10.7 H, Absolute Lymphs (auto) 2.66, Nucleated RBC % 0 Radiography Diagnostic Testing: Radiology Impression Echocardiogram 10/09/21 20:54 Interpretation Summary The study was technically difficult. Mild segmental systolic dysfunction (see wall motion). The estimated ejection fraction is 50 %. The left atrium is mildly enlarged. There is mild mitral annular calcification. Extension of the mitral annular calcification onto the posterior mitral valve leaflet. Trivial mitral valve insufficiency. Trivial tricuspid valve insufficiency. Mild focal aortic valve thickening. Mild focal aortic valve calcification. Mild aortic stenosis. Trivial pulmonic valve insufficiency. Unable to estimate RV systolic pressure/pulmonary artery pressure due to technically difficult study. Diastolic function is indeterminate. Ordering Physician: Peg Camacho Referring Physician: Su Thomas M.D. Performed By: Renetta Fowler RDCS D/C Instructions Discharge Diet: 1800 Calorie Control Diet Weight Bearing Status: Full weight bearing Meaningful Use Info Meaningful Use Diagnoses (Choose all that apply): None applicable Discharge Plan Admission Admit Date/Time: 07/13/22 19:33 Primary Reason for Your Visit: V-Tach, occlusive coronary disease Attending Provider: Mo Rao Primary Care Provider: Su Thomas Consulting Providers: Joseph Stahl ; Peg Camacho Discharge Orders/Prescriptions Prescriptions: New metoprolol tartrate 100 mg Tablet 100 mg PO BID Qty: 60 0RF Continued triamterene-hydrochlorothiazid 37.5-25 mg tablet 1 tab PO QODAY losartan 50 mg tablet 50 mg PO DAILY azelastine 137 mcg (0.1 %) aerosol,spray 1 spray INTRANASAL BID azelastine 0.05 % drops 1 drp OPHTHALMIC BID loratadine [Claritin] 10 mg tablet 10 mg PO DAILY Flovent HFA 220 mcg/actuation HFA aerosol inhaler 1 puff inhalation QODAY levothyroxine 100 mcg tablet 100 mcg PO Q OTHER DAY Rx Instructions: Alternate 50 mcg with 100 mcg tramadol 50 mg tablet 25 mg PO DAILY PRN (Reason: Pain, Moderate) potassium chloride 10 mEq tablet,ER particles/crystals 10 meq PO DAILY ergocalciferol (vitamin D2) 1,250 mcg (50,000 unit) capsule 50,000 unit PO 2XW Food drops 3 drp sublingual Q OTHER DAY cascara sagrada 450 mg Capsule 450 mg PO BID montelukast 5 mg tablet,chewable 5 mg PO QHS Label Comments: CHEW AND SWALLOW 1 TABLET BY MOUTH ONCE DAILY levothyroxine 100 mcg tablet 50 mcg PO QODAY fluticasone propionate 50 mcg/actuation spray,suspension 1 spray INTRANASAL BID aspirin 81 mg tablet,delayed release (DR/EC) 81 mg PO 1700 fluorometholone 0.1 % Drops,Suspension 1 drp EACH EYE BID clopidogrel [Plavix] 75 mg tablet 75 mg PO QDAY Qty: 90 3RF pravastatin 40 mg tablet 40 mg PO QHS Qty: 90 3RF Farxiga 10 mg tablet 10 mg PO DAILY Discontinued metoprolol tartrate 25 mg tablet 50 mg PO BID Referrals / Follow Up: Rowan Gracia MD [STAFF PHYSICIAN] - 10/25/21 8:45 am Warren Murphy NP, [employer] [Nurse Practitioner] - 10/29/21 10:00 am Disposition Disposition (needs filled in before D/C Order can be placed): Home, Self Care Charges/Coding Visit Charges Inpatient E&M: 11672 Disch Hosp
--- NOTE | 2021-10-11 10:32 | CASEMGMT ---
This RN CM to room to discuss d/c plan and pt declines need for any further therapy/resources at discharge. Julio from [facility] aware pt to discharge home today. Pt voices no further questions/concerns/needs. Patrick RN CM
--- NOTE | 2021-10-11 14:42 | CRPHASE1_ITS ---
Patient Communication Former Patient:: Phase I PHII Cardiac Rehab Discussed with Patient:: Yes Guide to Cardiac Rehab Given to Patient:: Yes Cardiac Rehab Facility Choice List Given to Patient:: Yes Choice Program [facility] CR PHII:: Communication Given to CR Choice Program Other:: Communication Given to CR Stitcher Feeder:: ozzy Schuster Phase II Cardiac Rehab:: Yes Sessions:: 36 sessions - 3 days/wk, 12 weeks Cardiac Rehabilitation Info Cardiac Rehabilitation Program Information: Cardiac Rehabilitation is important for patients like you who are recovering from a heart problem. Cardiac rehabilitation programs are recognized as integral to the continued care of the patient with coronary heart disease. The cardiac rehabilitation program is designed to optimize a patient's physical, psychological, and social functioning. Health career representative work in cardiac rehabilitation programs and assist you with getting the treatments you need to get stronger and healthier - like exercise, healthy eating habits, and medications. Cardiac rehabilitation has been show to help people with heart problems live longer and have better life enjoyment than people who do not go to cardiac rehabilitation. Please contact the Cardiac Rehabilitation Program at [facility] at in two weeks if you have not heard from them.
--- NOTE | 2021-10-11 14:43 | CRPH1.INSTRU ---
General Education CAD and cardiac anatomy and function:: Patient communicates acknowledgment Explanation of diagnoses and procedures:: Patient communicates acknowledgment Sign/Symptoms of MT:: Patient communicates acknowledgment Antiplatelet therapy: Patient communicates acknowledgment Smoking Patient Nicotine/Smoking Risk Factors Are:: Non-smoker Dyslipidemia Patient Dyslipidemia Risk Factors Are:: Total Cholesterol, Triglycerides, LDL Recommendations Include:: Lipid profile provided, Reviewed NCEP/ATP guidelines, Therapeutic Lifestyle Change dietary guidelines Dyslipidemia Response Code:: Patient communicates acknowledgment Overweight/Obesity Patient Overweight/Obesity Risk Factors Are:: Obesity - > or = 30 Recommendations Include:: Weight loss of 5-10%, Reduced calorie diet, Exercise 5-7 times/week Overweight/Obesity:: Patient communicates acknowledgment Hypertension Patient Hypertension Risk Factors Are:: No documented hx of HTN Diabetes Patient Diabetes Risk Factors Are:: Elevated blood sugars Recommendations Include:: Maintain fasting blood sugars 70-110 md/dL, Maintain HgbA1c of 6% or less, Monitor blood sugar as prescribed, Diabetic dietary guidelines, Decrease/maintain body weight Diabetes:: Patient communicates acknowledgment Sedentary Patient Sedentary Risk Factors Are:: Lack of regular exercise Recommendations Include:: Aerobic exercise 5-7 times/week for 20-30 minutes continuously, Benefits of regular exercise, Discussed home walking program, Monitored Outpatient Cardiac Rehab Sedentary Response Code:: Patient communicates acknowledgment Stress Recommendations Include:: Identification of stressors, and assessment of coping skills, Stress management techniques Stress Response Code:: Patient communicates acknowledgment
--- NOTE | 2021-10-14 11:22 | CL.I_ITS ---
Patient Name: CHIRAG RUFFIN Study Date: 10/10/2021 Performing: Justine Marsh MD Ht: 61 inches 155 cm : 1945 Wt: 165.6 lbs 75 kg Age: 76 Gender: female BSA: 1.74 PROCEDURE(S) PERFORMED IC10-(25091)FFR, CORONARY OR GRAFT, INITIAL VESSEL IC12-([id number]/C9600)BRAVO W/WO PTCA, SINGLE CORONARY ARTERY IC12-([id number]/[id number])BRAVO W/WO PTCA, SINGLE CORONARY ARTERY IC11-([id number])FFR, CORONARY OR GRAFT, EACH ADD'L VESSEL CLINICAL PROFILE AND CO-MORBIDITIES Indications: Cardiac Arrythmia, Suspected CAD, Cardiomyopathy Heart Failure: None Stress/Imaging Stress/Image Study Performed: No Angina Classification Anginal Classification w/in 2 Weeks: No symptoms CAD Presentations: Other: VT CONCLUSIONS Successful iFR guided PCI of pD1 with BRAVO. Successful PCI of pLCx with BRAVO. iFR in the RPL was 0.99 c onsistent with stenoses that can be treated medically at this time RECOMMENDATIONS DESCRIPTION OF PROCEDURE The patient arrived to the procedure lab. The risks and benefits of the procedure as well as a full d escription of our services here and current unavailability of surgical backup were fully explained to the patient and/or their significant other prior to the catheterization. The Timeout was completed, verifying the correct patient and procedure. The patient's procedural site was prepped and draped in the usual fashion. Local anesthetic was given subcutaneously to right radial region with Lidocaine 2% Using a modified Seldinger technique,arterial access was obtained via the right radial artery, a 6Fr sheath was inserted. Left Coronary Artery selective angiography was performed in multiple views usin g a 5 Fr. 4.0 Grulla catheter. Right Coronary Artery selective angiography was then performed in multi ple views using a 5 Fr. 4.0 Grulla catheter. Left Ventriculography was performed in CAMARENA projection usi ng a 5 Fr. Pigtail catheter. LV to AO pullback pressures were then recorded. XB 3.0 Guide catheter was inserted and engaged into the LCA. The FFR/iFR wire was inserted. iFR R atio: 0.85 The FFR/iFR wire was left in place as guide wire. Orsiro 2.25 x 9 Drug Eluting stent was i nserted. Drug Eluting stent was advanced across the lesion in the first diagonal, proximal. IFR Guide wire was repositioned to the Circumflex Orsiro 2.5 x 9 Drug Eluting stent was inserted. Drug Eluting stent was advanced across the lesion in the circumflex, proximal. Angiogram performed pre stent depl oyment. Angiogram performed post stent deployment. JR 4 Guide catheter was inserted and engaged into the RCA. The FFR/iFR wire was inserted. Pressures and FFR/iFR were then recorded. iFR Ratio: 0.99 The FFR/iFR wire was then removed. The arterial sheath was pulled and a TR Band was applied for hemost asis INTERVENTION INFORMATION LESION SITE: 1st Diagonal (Proximal) Lesion Complexity: High/C, chronic total occlusion: No, lesion at bifurcation: No, thrombus present: No, lesion length: 8 mm, culprit lesion: Yes, Previously treated lesion: No Pre Stenosis: 70 % Pre intervention JESICA flow: 3 PROCEDURE: iFR, Drug Eluting Stent iFR was 0.85 Post Stenosis: 0 % Post intervention JESICA flow: 3 Lesion Devices: IGT Devices ( Formerly Force) Coronary FFR Wire Cardinal 6 Fr XB3.0 100cm Guide Catheter Nintexronik Tubis MR BRAVO 2.25x9 LESION SITE: Circumflex (Proximal) Lesion Complexity: High/C, chronic total occlusion: No, lesion at bifurcation: No, thrombus present: No, lesion length: 11 mm, culprit lesion: Yes, Previously treated lesion: No Pre Stenosis: 80 % Pre intervention JESICA flow: 3 PROCEDURE: Drug Eluting Stent Post Stenosis: 0 % Post intervention JESICA flow: 3 Lesion Devices: IGT Devices ( Formerly Force) Coronary FFR Wire Cardinal 6 Fr XB3.0 100cm Guide Catheter NintexroniHum MR BRAVO 2.5x9 LESION SITE: RPL (1st) iFR was 0.99 Lesion Devices: IGT Devices ( Formerly Force) Coronary FFR Wire Cardinal 6 Fr JR4 100cm Guide Catheter COMPLICATIONS No Complications PROCEDURE MEDICATIONS Fentanyl 50 mcg IV Versed 1 mg IV Fentanyl 50 mcg IV Oxygen: 2 L/min via nasal cannula Heparin given IA 10/10/2021 08:35:28 Heparin 3000 unit(s) IV 10/10/2021 09:01:56 Solu-medrol 125 mg IV 10/10/2021 08:12:30 SUMMARY OF HEMODYNAMIC DATA Time AIR REST ECG 08:10:05 AO 137/59 (94) SA 08:38:07 LV 169/-5, 27 08:46:18 LV 168/-6, 28 08:46:24 LV 172/-4, 29 08:47:18 LV 172/-5, 32 08:47:25 LVp 173/-6, 34 08:47:32 AOp 166/66 (106) 08:47:37 Signed By Justine Marsh MD On 10/14/2021 11:21:18 Justine Marsh MD
== END 2021-10-11 12:21 | disposition home or self-care (01) | DRG 247 ==
LOC: ED 20:28 → PCU 10-10 06:36
PROVIDERS: Internal Medicine Cardiovascular Disease; Admitting Provider Family Medicine; Emergency Provider Emergency Medicine; PCP Internal Medicine; Visit Provider Internal Medicine
DX: I47.2 Ventricular tachycardia (principal); E03.9 Hypothyroidism, unspecified; I25.10 Atherosclerotic heart disease of native coronary artery without angina pectoris; E11.40 Type 2 diabetes mellitus with diabetic neuropathy, unspecified; I25.82 Chronic total occlusion of coronary artery; M06.9 Rheumatoid arthritis, unspecified; E78.00 Pure hypercholesterolemia, unspecified; M79.7 Fibromyalgia; I10 Essential (primary) hypertension; J45.909 Unspecified asthma, uncomplicated; I25.5 Ischemic cardiomyopathy; I25.2 Old myocardial infarction; E78.5 Hyperlipidemia, unspecified; E66.9 Obesity, unspecified; Z79.02 Long term (current) use of antithrombotics/antiplatelets; Z79.84 Long term (current) use of oral hypoglycemic drugs; F32.A Depression, unspecified; Z79.82 Long term (current) use of aspirin; Z79.899 Other long term (current) drug therapy; Z86.16 Personal history of COVID-19; Z68.31 Body mass index [BMI] 31.0-31.9, adult; Z95.5 Presence of coronary angioplasty implant and graft; Z86.79 Personal history of other diseases of the circulatory system
CPT/HCPCS: 71045; 80048; 80053; 82962; 83735; 84443; 84484; 85025; 92928; 93005; 93306; 93458; 93571; 93572; 94640; 99152; 99153; 99251; 99285; C1874; J7030; Q9957; Q9967; A4216; C1769; C1887; C1894; C9600; G0463

== ENCOUNTER 2021-10-12 04:06 | Inpatient (IN) | payer MEDICARE, MEDICAID, SELFPAY ==
[2021-10-12] VITALS (38 sets, daily range): BP systolic 77–190; BP diastolic 35–124; PULSE 42–101; RESP 14–25; TEMP 36.1–38.4; O2SAT 70–98; BMI 32.8; BMI 31.8
[2021-10-12] MEDS: Etomidate 20 MG/10 ML Vial IV (04:13)
[2021-10-12] MEDS: Succinylcholine Chloride 200 MG/10 ML SYRINGE 100 MG IV (04:14)
--- NOTE | 2021-10-12 04:16 | EKG12_ITS ---
Test Reason : DYSRHYTHMIA Blood Pressure : / mmHG Vent. Rate : 057 BPM Atrial Rate : 057 BPM P-R Int : 172 ms QRS Dur : 104 ms QT Int : 450 ms P-R-T Axes : 066 -41 067 degrees QTc Int : 438 ms Sinus bradycardia with sinus arrhythmia Left axis deviation Nonspecific T wave abnormality Abnormal ECG Confirmed by JAD PHILLIP, ROMULO ([id number]), editor city RACHEL PARTIDA ([id number]) on 10/14/2021 11:34:38 AM Referred By: KENNA Confirmed By:ROMULO STREET MD
--- NOTE | 2021-10-12 04:17 | EDS_ITS ---
HPI History of Present Illness Chief Complaint: Shortness of Breath Detail of Chief Complaint: Shortness of breath that started suddenly this morning Informant: patient, spouse/S.O. and EMS Narrative Narrative: Patient presents the emergency department via EMS from home. Patient had gotten up to use the restroom and complained of feeling short of breath and EMS was called. Patient was just discharged from this hospital and had 2 stents put in 2 days ago. Patient is a poor historian cannot give me much history given her dyspnea and mental status. Patient was brought to the ED and was on a nonrebreather satting 50%. Discussed with and he is comfortable having patient intubated and placed on a ventilator. [facility] Medical History Allergic rhinitis Ambulates with cane Anxiety Arthritis Asthma Atherosclerotic heart disease of [place] coronary artery without angina pectoris Back pain Cardiology follow-up encounter COVID-19 Depressive disorder Diabetes Diabetic neuropathy Dyspepsia Essential hypertension Fibromyalgia Hearing loss High cholesterol History of echocardiogram History of heart attack History of rheumatic fever History of steroid therapy History of tachycardia Hyperlipidemia Hypertension Hypothyroidism Insomnia Ischemic cardiomyopathy Left against medical advice (12/19/20) Obesity Osteoarthritis Rheumatoid arthritis Tachycardia Thyroid disease Thyromegaly Varicosities of leg Vitamin D deficiency Walker as ambulation aid Wears dentures Wears glasses Wears hearing aid Home Medications azelastine 0.05 % eye drops 1 drp ophthalmic (eye) BID 01/29/18 [History Last Taken 12/19/20] azelastine 137 mcg (0.1 %) nasal spray aerosol 1 spray intranasal BID 01/29/18 [History Last Taken 12/19/20] loratadine 10 mg tablet (Claritin) 10 mg PO DAILY 01/29/18 [History Last Taken 12/18/20] losartan 50 mg tablet 50 mg PO DAILY 01/29/18 [History Last Taken 05/27/21 50 MG] triamterene 37.5 mg-hydrochlorothiazide 25 mg tablet 1 tab PO QODAY water pill 01/29/18 [History Last Taken 12/18/20] cascara sagrada 450 mg capsule 450 mg PO BID SUPPLEMENT 12/19/20 [History Last Taken 12/18/20] levothyroxine 100 mcg tablet 50 mcg PO QODAY THYROID 12/19/20 [History Last Taken 05/27/21 50 mcg] montelukast 5 mg chewable tablet 5 mg PO QHS ALLERGIES 12/19/20 [History Last Taken 12/19/20] clopidogrel 75 mg tablet (Plavix) 75 mg PO QDAY #90 tabs 02/08/21 [Rx Last Taken 05/23/21] fluticasone propionate 220 mcg/actuation HFA aerosol inhaler (Flovent HFA) 1 puff inhalation QODAY 02/28/21 [History Last Taken Unknown] levothyroxine 100 mcg tablet 100 mcg PO Q OTHER DAY 02/28/21 [History Last Taken Unknown] tramadol 50 mg tablet 25 mg PO DAILY PRN Pain, Moderate 02/28/21 [History Last Taken Unknown] pravastatin 40 mg tablet 40 mg PO QHS #90 tabs 04/22/21 [Rx Last Taken Unknown] aspirin 81 mg tablet,delayed release 81 mg PO 1700 05/22/21 [History Last Taken 05/23/21] Food drops 3 drp sublingual Q OTHER DAY 05/28/21 [History Last Taken Unknown] ergocalciferol (vitamin D2) 1,250 mcg (50,000 unit) capsule 50,000 unit PO 2XW 05/28/21 [History Last Taken Unknown] fluticasone propionate 50 mcg/actuation nasal spray,suspension 1 spray intranasal BID 05/28/21 [History Last Taken Unknown] potassium chloride 10 mEq tablet,extended release(part/cryst) 10 meq PO DAILY 05/28/21 [History Last Taken Unknown] dapagliflozin 10 mg tablet (Fartomekaga) 10 mg PO DAILY per Dr. Thomas 10/08/21 [History Last Taken Unknown] fluorometholone 0.1 % eye drops,suspension 1 drp EACH EYE BID eye drops 10/09/21 [History Last Taken 10/08/21] metoprolol tartrate 100 mg tablet 100 mg PO BID #60 tabs 10/11/21 [Rx Last Taken Unknown] Allergy/AdvReac Type Severity Reaction Status Date / Time aspirin Allergy Intermediate heart Verified 10/09/21 18:27 races, dizziness povidone-iodine Allergy Intermediate rash Verified 10/09/21 18:27 [From Betadine] soap [From Betadine] Allergy Intermediate rash Verified 10/09/21 18:27 amitriptyline Allergy Unknown Unknown Verified 10/09/21 18:27 doxepin Allergy Unknown unknown Verified 10/09/21 18:27 guaifenesin [From Entex LA] Allergy Unknown Unknown Verified 10/09/21 18:27 latex Allergy Unknown Unknown Verified 10/09/21 18:27 phenylephrine [From Entex LA] Allergy Unknown Unknown Verified 10/09/21 18:27 phenylpropanolamine Allergy Unknown Unknown Verified 10/09/21 18:27 [From Entex LA] pseudoephedrine Allergy Unknown Unknown Verified 10/09/21 18:27 Sulfa (Sulfonamide Allergy Unknown Unknown Verified 10/09/21 18:27 Antibiotics) Family History Father Asthma Diabetes High cholesterol Heart disease Hypertension Mother Arthritis Diabetes Heart disease Hypertension Sister Arthritis Lupus Brother Arthritis Surgical History History of cardiac catheterization History of colonoscopy (05/27/21) History of coronary artery stent placement (12/20/20) History of coronary artery stent placement History of hysterectomy History of repair of rectocele Social History (Updated 10/09/21 @ 19:[address] Peg Camacho MD) household members: spouse Smoking Status: Never smoker alcohol intake: never substance use type: does not use ROS ROS ED Review of Systems ROS Unobtainable: due to mental status EXAM Physical Exam Const Vital Signs: 10/12/21 04:07 10/12/21 05:11 10/12/21 04:15 Temperature 97.0 F L Temperature Source Temporal Pulse Rate 101 H 74 66 Respiratory Rate 21 H 14 Respiratory Effort Respiratory Pattern Normal Blood Pressure 190/124 H 115/70 Blood Pressure Mean 146 85 Pulse Ox 70 97 95 Oxygen Delivery Method Non-Rebreather Room Air Fraction of Inspired Oxygen (FIO2) 100 10/12/21 04:07 10/12/21 04:32 10/12/21 04:45 Temperature Temperature Source Pulse Rate 62 60 Respiratory Rate 21 H 25 H Respiratory Effort Respiratory Pattern Blood Pressure 190/124 H 152/82 H 149/86 H Blood Pressure Mean 146 105 107 Pulse Ox 97 98 Oxygen Delivery Method Mechanical Ventilator Mechanical Ventilator Fraction of Inspired Oxygen (FIO2) 10/12/21 04:52 10/12/21 05:00 10/12/21 05:24 Temperature Temperature Source Pulse Rate 53 L 42 L 75 Respiratory Rate 19 H 17 20 H Respiratory Effort Respiratory Pattern Blood Pressure 124/55 H 101/61 138/84 H Blood Pressure Mean 78 74 102 Pulse Ox 96 97 98 Oxygen Delivery Method Mechanical Ventilator Mechanical Ventilator Mechanical Ventilator Fraction of Inspired Oxygen (FIO2) 10/12/21 05:24 10/12/21 05:34 Temperature Temperature Source Pulse Rate Respiratory Rate Respiratory Effort Short of Breath Respiratory Pattern Blood Pressure 126/82 H Blood Pressure Mean 96 Pulse Ox Oxygen Delivery Method Fraction of Inspired Oxygen (FIO2) Positive well nourished and well developed General Appearance ED: well developed and NAD HEENT Reports TM's clear and moist mucous membranes normocephalic and atraumatic; Negative for trauma or tenderness Tympanic Membrane ED: Yes TM's clear Eyes PERRL and EOMs intact bilaterally General Eye ED: Negative for pale conjunctiva or scleral icterus Neck no lymphadenopathy, supple and no JVD General: Negative for tenderness Chest Wall inspection of chest normal and palpation of chest normal Chest: Negative for tenderness Resp No normal respiratory effort and No clear to auscultation bilaterally Resp Narrative: Patient tachypneic with decreased air movement. She has Rales in both bases. Patient has accessory muscle use and retractions. She is diaphoretic. Effort and Inspection: respiratory distress; Negative for pain with movement Auscultation: Negative for rhonchi, wheezes or diminished lung sounds Cardio regular rate, regular rhythm, S1 normal heart sound, S2 normal heart sound and no murmurs Peripheral Pulses: pulses 2+ throughout GI normal to inspection, nondistended, normoactive bowel sounds, soft to palpation, non-tender, non-distended and no masses Back/Spine no CVA tenderness and no thoracic nor lumbar tenderness Extremity normal to inspection General Extremety ED: Negative for edema General Extremity: Negative for edema Neuro oriented x3, CN's II-XII intact bilaterally, no sensory deficits noted and gait normal Sensorium / Orientation: awake, alert, oriented to person, oriented to place and oriented to time Motor Exam: strength 5/5 throughout and strength abnormal Psych mental status grossly normal Skin no rashes or lesions noted and no wounds MDM MDM MDM Narrative Medical decision making narrative: IV line placed on arrival. Patient was given etomidate and succinylcholine and was intubated with a 7.5 ET tube. Patient will be started on a propofol drip. Chest x-ray will be obtained for tube placement. Lab work-up initiated. Clinically I suspect patient is in flash pulmonary edema. Patient was ordered Lasix 80 mg IV as well as nitro drip and 4 mg of morphine. She does have an elevated white blood cell count which I suspect is reactive. Patient has a slightly elevated troponin and an elevated BNP. Chest x-ray was read by radiology as multifocal pneumonia however I feel this is likely flash pulmonary edema clinically. Symptoms came on suddenly tonight. Lab Data Attestation: I reviewed the patient's lab results. Labs: Laboratory Results - last 24 hr 10/12/21 10/12/21 10/12/21 04:20 04:20 04:50 WBC 22.0 H RBC 4.92 Hgb 15.4 H Hct 50.2 H MCV 102.0 H D MCH 31.3 MCHC 30.7 L D RDW Std Deviation 49.4 H RDW Coeff of Manas 13.1 Plt Count 364 MPV 9.3 Immature Gran % (Auto) 0.400 Neut % (Auto) 46.1 L Lymph % (Auto) 41.6 H [place] % (Auto) 8.7 Eos % (Auto) 2.6 Baso % (Auto) 0.6 Absolute Neuts (auto) 10.1 H Absolute Lymphs (auto) 9.14 H Nucleated RBC % 0 Differential Comment SCANNED Diff Path Review May foll D-Dimer Quant (PE/DVT) Cancelled Sodium Cancelled Potassium Cancelled Chloride Cancelled Carbon Dioxide Cancelled Anion Gap Cancelled BUN Cancelled Creatinine Cancelled Estim Creat Clear Calc Cancelled Est GFR (MDRD) Af Amer Cancelled Est GFR (MDRD) Non-Af Cancelled BUN/Creatinine Ratio Cancelled Glucose Cancelled Calcium Cancelled Troponin I High Sens Cancelled B-Natriuretic Peptide 10/12/21 10/12/21 04:50 04:50 WBC RBC Hgb Hct MCV MCH MCHC RDW Std Deviation RDW Coeff of [place] Plt Count MPV Immature Gran % (Auto) Neut % (Auto) Lymph % (Auto) [place] % (Auto) Eos % (Auto) Baso % (Auto) Absolute Neuts (auto) Absolute Lymphs (auto) Nucleated RBC % Differential Comment Diff Path Review D-Dimer Quant (PE/DVT) Sodium 138 Potassium 4.7 Chloride 108 H Carbon Dioxide 20.0 L Anion Gap 10 BUN 24 H Creatinine 1.25 H Estim Creat Clear Calc 30.68 Est GFR (MDRD) Af Amer 53 L Est GFR (MDRD) Non-Af 44 L BUN/Creatinine Ratio 19.2 Glucose 390 H Calcium 7.9 L Troponin I High Sens 72 H B-Natriuretic Peptide 490.1 H Radiography Chest X-Ray - ED: 1 View Diagnostic Testing: Clinical Impression(s) from Imaging Studies Chest X-Ray 10/12/21 04:25 IMPRESSION: Endotracheal tube terminates just inferior to the clavicle heads. This appears to be 3.5 cm above the sal, although the sal is not well defined on this exam. Multifocal pneumonia. Electronically Signed: Joseph López MD at 4:57 EDT , 1 view chest x-ray obtained interpreted by myself as pulmonary edema. Radiology felt this was multifocal pneumonia. The ET tube was above the sal on my int erpretation as well as radiology interpretation. 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 Machine Operator, Discussing w/Consultants, Arranging Admission or Transfer, Performing Direct Patient Care at Bedside and - (30 min) Discharge Plan Triage Chief Complaint: Shortness of Breath ED Provider: Natalie Green Dx/Rx/DC Orders Clinical Impression: Pulmonary edema, Respiratory failure, Hypoxemia, Airway intubation performed without difficulty Prescriptions: No Action triamterene-hydrochlorothiazid 37.5-25 mg tablet 1 tab PO QODAY losartan 50 mg tablet 50 mg PO DAILY azelastine 137 mcg (0.1 %) aerosol,spray 1 spray INTRANASAL BID azelastine 0.05 % drops 1 drp OPHTHALMIC BID loratadine [Claritin] 10 mg tablet 10 mg PO DAILY Flovent HFA 220 mcg/actuation HFA aerosol inhaler 1 puff inhalation QODAY levothyroxine 100 mcg tablet 100 mcg PO Q OTHER DAY Rx Instructions: Alternate 50 mcg with 100 mcg tramadol 50 mg tablet 25 mg PO DAILY PRN (Reason: Pain, Moderate) potassium chloride 10 mEq tablet,ER particles/crystals 10 meq PO DAILY ergocalciferol (vitamin D2) 1,250 mcg (50,000 unit) capsule 50,000 unit PO 2XW Food drops 3 drp sublingual Q OTHER DAY cascara sagrada 450 mg Capsule 450 mg PO BID montelukast 5 mg tablet,chewable 5 mg PO QHS Label Comments: CHEW AND SWALLOW 1 TABLET BY MOUTH ONCE DAILY levothyroxine 100 mcg tablet 50 mcg PO QODAY fluticasone propionate 50 mcg/actuation spray,suspension 1 spray INTRANASAL BID aspirin 81 mg tablet,delayed release (DR/EC) 81 mg PO 1700 fluorometholone 0.1 % Drops,Suspension 1 drp EACH EYE BID metoprolol tartrate 100 mg Tablet 100 mg PO BID Qty: 60 0RF clopidogrel [Plavix] 75 mg tablet 75 mg PO QDAY Qty: 90 3RF pravastatin 40 mg tablet 40 mg PO QHS Qty: 90 3RF Farxiga 10 mg tablet 10 mg PO DAILY Primary Care Provider: Su Thomas Referrals: Su Thomas DO [Primary Care Provider] - Disposition Disposition: Acute Care Hospital [facility]
--- NOTE | 2021-10-12 04:20 | NURSING ---
Pt upon arrival in respiratory distress. while nurses where getting pt hooked up to monitor, this nurse went to get Dr. Green to come to the room. pt was currently on NRB. pt's pulse ox was 50-60%. per Dr. Green manually bag pt while prepping for intubation. intubation completed at 0415.
--- NOTE | 2021-10-12 04:25 | RAD_ITS ---
STUDY: X-RAY CHEST REASON FOR EXAM: Female, 76 years old. Intubation TECHNIQUE: Portable, supine, AP chest radiograph COMPARISON: 10/09/2021 FINDINGS: Bilateral pulmonary infiltrates. There is no demonstrated pleural abnormality. Normal size heart. Normal mediastinum and bill. Normal visualized pulmonary arteries. There is atherosclerotic calcification of the aortic arch with tortuosity. There is no demonstrated abnormality of the visualized soft tissue structures of the upper abdomen. RAD/Chest 1 View (Portable) IMPRESSION: Endotracheal tube terminates just inferior to the clavicle heads. This appears to be 3.5 cm above the sal, although the sal is not well defined on this exam. Multifocal pneumonia. Electronically Signed: Joseph López MD at 4:57 EDT ,
[2021-10-12 04:35] LABS: Absolute Lymphocyte Count 9.14 X10^3/uL (0.83-4.51); Absolute Neutrophil Count 10.1 X10^3/uL (2.0-7.7); Basophil# 0.14 X10^3/uL; Basophil% 0.6 % (0-1); Eosinophil# 0.57 X10^3/uL; Eosinophils% 2.6 % (0-5); Hematocrit 50.2 % (37-47); Hemoglobin 15.4 g/dL (12.0-15.0); Lymphocyte # 9.14 X10^3/ul (0.83-4.51); Lymphocyte % 41.6 % (19-41); Mean Corp Hgb Conc 30.7 g/dL (32-36); Mean Corpuscular Hgb 31.3 pg (27.0-32.0); Mean Platelet Vol. 9.3 fl (6.2-12.0); Monocyte% 8.7 % (0-10); NRBC Flagged by Analyzer 0 % (0-5); Neutrophil # 10.11 X10^3/uL (2.7-7.7); Neutrophil % 46.1 % (47-70); POSITIVE DIFFERENTIAL YES; POSITIVE MORPHOLOGY YES; Platelet Count 364 K/mm3 (150-450); RBC Distribution Width CV 13.1 % (11.6-14.6); RBC Distribution Width SD 49.4 fl (35.1-43.9); Red Blood Count 4.92 M/mm3 (4.2-5.4)
[2021-10-12 04:44] LABS: Differential Indicated SCAN CRITERIA MET
[2021-10-12] MEDS: Propofol 200 MG/20 ML Vial 40 MG IV BOLUS (04:46)
[2021-10-12] MEDS: Furosemide 100 MG/10 ML Vial 80 MG IV (04:56)
--- NOTE | 2021-10-12 05:00 | ED.RN ---
verified with Dr. Green to hold nitro drip and morphine push due to pt's BP 101/61
[2021-10-12] MEDS: Propofol 10MG/Ml 1,000 MG/100 ML Bottle 5.1 MG CONT INF (05:02)
--- NOTE | 2021-10-12 05:09 | RAD_ITS ---
STUDY: X-RAY - ABDOMEN/PELVIS REASON FOR EXAM: Female, 76 years old. OG PLACEMENT TECHNIQUE: Portable, supine, AP abdomen radiograph COMPARISON: None. RAD/Abdomen Single View (Portable) IMPRESSION: Enteric tube terminates over the gastric body with sidehole of the diaphragm. Electronically Signed: Joseph López MD at 5:41 EDT ,
[2021-10-12 05:15] LABS: Differential Comment SCANNED
[2021-10-12 05:17] LABS: BNP,B-Type NATRIURETIC PEPTIDE 490.1 pg/mL (0-100)
[2021-10-12 05:19] LABS: Anion Gap 10 (5-15); BUN 24 mg/dL (7-18); BUN/Creat Ratio 19.2 RATIO (10-20); Calcium,Total 7.9 mg/dL (8.5-10.1); Chloride 108 mmol/L (98-107); Creatinine, Serum 1.25 mg/dL (0.55-1.02); EST Glomerular Filtration Rate 44 mL/min (>60); Est Glom Filt Rate - Afr Amer 53 mL/min (>60); Estimated Creatinine Clearance 30.68 ml/min; Glucose 390 mg/dL (74-106); Potassium 4.7 mmol/L (3.5-5.1); Sodium Level 138 mmol/L (136-145); Troponin-I HS (w/2H Reflex) 72 pg/mL (3.0-54.0)
[2021-10-12] MEDS: Nitroglycerin Infusion 250 ML 3 MG CONT INF (05:34)
--- NOTE | 2021-10-12 05:41 | PCM.HP.STD ---
HPI - General General Date of Admission: 10/12/21 Date of Service: 10/12/21 Chief Complaint: Dyspnea, respiratory distress. HPI Narrative The patient is a 76 y/o F w/ PMHx: Asthma with allergic rhinitis, HTN, HLD, CAD s/p PCI w/ Hx HI, Ischemic cardiomyopathy, Depression and Anxiety, Diabetes mellitus type II with neuropathy, GERD, Hx Rheumatic fever, Hypothyroidism, Rheumatoid arthritis, Fibromyalgia, Obesity, recent admission 10/09/21-10/11/21 secondary to episodes noted on HM of wide complex tachycardia placed on amiodarone and taken for cardiac catheterization with occlusive CAD circumflex artery and diagonal branch LCA with PCI performed with discharge on increased BB regimen off amiodarone with no further arrythmia who now re-presents to the [facility] ED on 10/12/21 with history of onset of significantly acutely worsening dyspnea when up attempting to use the restroom just prior to ED presentation prompting call for EMS. EMS placed patient on a nonrebreather and upon initial ED arrival was noted to be 50% with significant evident confusion, dyspnea, evident respiratory failure with immediate intubation needs. Work-up in the ED included T 97, heart rate 101, BP 190/124, 70% on a nonrebreather--> heart rate 66, respiratory rate 14, 95% on 100% FiO2 intubated, CBC with WC 22, hemoglobin 15.4, platelet 364 with left shift and lymphocytosis, BMP with chloride 108, carbon oxide 20, BUN/creatinine 24/1.25, glucose 390, troponin 72, BNP 490.1, chest x-ray with ET tube terminating just inferior to the clavicle heads, 3.5 cm above the sal although not well visualized on exam, multifocal pneumonia, D-dimer/ABG/lactic acid pending upon evaluation, EKG with SR without acute evidence of ischemia with nonspecific changes. In the ED patient administered morphine 4 mg IV x1, Lasix 80 mg IV x1 and placed on a nitroglycerin drip in addition to succinylcholine, etomidate for intubation with propofol drip. ED discussed case with Dr. Xiao. [facility] Medical History Allergic rhinitis Ambulates with cane Anxiety Arthritis Asthma Atherosclerotic heart disease of [place] coronary artery without angina pectoris Back pain Cardiology follow-up encounter COVID-19 Depressive disorder Diabetes Diabetic neuropathy Dyspepsia Essential hypertension Fibromyalgia Hearing loss High cholesterol History of echocardiogram History of heart attack History of rheumatic fever History of steroid therapy History of tachycardia Hyperlipidemia Hypertension Hypothyroidism Insomnia Ischemic cardiomyopathy Left against medical advice (12/19/20) Obesity Osteoarthritis Rheumatoid arthritis Tachycardia Thyroid disease Thyromegaly Varicosities of leg Vitamin D deficiency Walker as ambulation aid Wears dentures Wears glasses Wears hearing aid Home Medications azelastine 0.05 % eye drops 1 drp ophthalmic (eye) BID 01/29/18 [History Last Taken 12/19/20] azelastine 137 mcg (0.1 %) nasal spray aerosol 1 spray intranasal BID 01/29/18 [History Last Taken 12/19/20] loratadine 10 mg tablet (Claritin) 10 mg PO DAILY 01/29/18 [History Last Taken 12/18/20] losartan 50 mg tablet 50 mg PO DAILY 01/29/18 [History Last Taken 05/27/21 50 MG] triamterene 37.5 mg-hydrochlorothiazide 25 mg tablet 1 tab PO QODAY water pill 01/29/18 [History Last Taken 12/18/20] cascara sagrada 450 mg capsule 450 mg PO BID SUPPLEMENT 12/19/20 [History Last Taken 12/18/20] levothyroxine 100 mcg tablet 50 mcg PO QODAY THYROID 12/19/20 [History Last Taken 05/27/21 50 mcg] montelukast 5 mg chewable tablet 5 mg PO QHS ALLERGIES 12/19/20 [History Last Taken 12/19/20] clopidogrel 75 mg tablet (Plavix) 75 mg PO QDAY #90 tabs 02/08/21 [Rx Last Taken 05/23/21] fluticasone propionate 220 mcg/actuation HFA aerosol inhaler (Flovent HFA) 1 puff inhalation QODAY 02/28/21 [History Last Taken Unknown] levothyroxine 100 mcg tablet 100 mcg PO Q OTHER DAY 02/28/21 [History Last Taken Unknown] tramadol 50 mg tablet 25 mg PO DAILY PRN Pain, Moderate 02/28/21 [History Last Taken Unknown] pravastatin 40 mg tablet 40 mg PO QHS #90 tabs 04/22/21 [Rx Last Taken Unknown] aspirin 81 mg tablet,delayed release 81 mg PO 1700 05/22/21 [History Last Taken 05/23/21] Food drops 3 drp sublingual Q OTHER DAY 05/28/21 [History Last Taken Unknown] ergocalciferol (vitamin D2) 1,250 mcg (50,000 unit) capsule 50,000 unit PO 2XW 05/28/21 [History Last Taken Unknown] fluticasone propionate 50 mcg/actuation nasal spray,suspension 1 spray intranasal BID 05/28/21 [History Last Taken Unknown] potassium chloride 10 mEq tablet,extended release(part/cryst) 10 meq PO DAILY 05/28/21 [History Last Taken Unknown] dapagliflozin 10 mg tablet (Farxiga) 10 mg PO DAILY per Dr. Thomas 10/08/21 [History Last Taken Unknown] fluorometholone 0.1 % eye drops,suspension 1 drp EACH EYE BID eye drops 10/09/21 [History Last Taken 10/08/21] metoprolol tartrate 100 mg tablet 100 mg PO BID #60 tabs 10/11/21 [Rx Last Taken Unknown] Allergy/AdvReac Type Severity Reaction Status Date / Time aspirin Allergy Intermediate heart Verified 10/12/21 05:44 races, dizziness povidone-iodine Allergy Intermediate rash Verified 10/12/21 05:44 [From Betadine] soap [From Betadine] Allergy Intermediate rash Verified 10/12/21 05:44 amitriptyline Allergy Unknown Unknown Verified 10/12/21 05:44 doxepin Allergy Unknown unknown Verified 10/12/21 05:44 guaifenesin [From Entex LA] Allergy Unknown Unknown Verified 10/12/21 05:44 latex Allergy Unknown Unknown Verified 10/12/21 05:44 phenylephrine [From Entex LA] Allergy Unknown Unknown Verified 10/12/21 05:44 phenylpropanolamine Allergy Unknown Unknown Verified 10/12/21 05:44 [From Entex LA] pseudoephedrine Allergy Unknown Unknown Verified 10/12/21 05:44 Sulfa (Sulfonamide Allergy Unknown Unknown Verified 10/12/21 05:44 Antibiotics) Family History Father Asthma Diabetes High cholesterol Heart disease Hypertension Mother Arthritis Diabetes Heart disease Hypertension Sister Arthritis Lupus Brother Arthritis Surgical History History of cardiac catheterization History of colonoscopy (05/27/21) History of coronary artery stent placement (12/20/20) History of coronary artery stent placement History of hysterectomy History of repair of rectocele Social History (Updated 10/09/21 @ 19:[address] Peg Camacho MD) household members: spouse Smoking Status: Never smoker alcohol intake: never substance use type: does not use ROS Review of Systems ROS Unobtainable: due to encephalopathy and due to endotracheal tube Vital Signs Vital Signs Vital Signs: 10/12/21 04:07 10/12/21 05:11 10/12/21 04:15 Temperature 97.0 F L Temperature Source Temporal Pulse Rate 101 H 74 66 Respiratory Rate 21 H 14 Respiratory Effort Respiratory Pattern Normal Blood Pressure 190/124 H 115/70 Blood Pressure Mean 146 85 Pulse Ox 70 97 95 Oxygen Delivery Method Non-Rebreather Room Air Fraction of Inspired Oxygen (FIO2) 100 10/12/21 04:07 10/12/21 04:32 10/12/21 04:45 Temperature Temperature Source Pulse Rate 62 60 Respiratory Rate 21 H 25 H Respiratory Effort Respiratory Pattern Blood Pressure 190/124 H 152/82 H 149/86 H Blood Pressure Mean 146 105 107 Pulse Ox 97 98 Oxygen Delivery Method Mechanical Ventilator Mechanical Ventilator Fraction of Inspired Oxygen (FIO2) 10/12/21 04:52 10/12/21 05:00 10/12/21 05:24 Temperature Temperature Source Pulse Rate 53 L 42 L 75 Respiratory Rate 19 H 17 20 H Respiratory Effort Respiratory Pattern Blood Pressure 124/55 H 101/61 138/84 H Blood Pressure Mean 78 74 102 Pulse Ox 96 97 98 Oxygen Delivery Method Mechanical Ventilator Mechanical Ventilator Mechanical Ventilator Fraction of Inspired Oxygen (FIO2) 10/12/21 05:24 10/12/21 05:34 Temperature Temperature Source Pulse Rate Respiratory Rate Respiratory Effort Short of Breath Respiratory Pattern Blood Pressure 126/82 H Blood Pressure Mean 96 Pulse Ox Oxygen Delivery Method Fraction of Inspired Oxygen (FIO2) Weight Weight: 185 lb 10.067 oz Body Mass Index (BMI) 32.8 Physical Exam Narrative Physical Examination: General: Intubated, sedated, laying in the ED bed, respiratory distress improved status post vent transition. Skin: Normal color, normal turgor, no icterus, no cyanosis, cardiac catheterization site well-appearing, no drainage. HEENT: AT/NC, EOM unable be assessed given intubated/sedated status, PERRLA, mildly dry MM, ET tube in place, no carotid bruits, +JVD noted. Lungs: Symmetric rise, intubated, respiratory distress significantly improving, diffusely coarse, rhonchorous, mild rales bases, no wheezing. Heart: Tachycardic with regular rhythm; no gallop, rub audible. Abdomen: Soft, obese, NTTP, ND, distant normal BS, no HSM. Extremities: No cyanosis, clubbing, or edema. Neurological: Intubated, sedated, laying in the ED bed, respiratory distress improved status post vent transition, cognitive function not baseline intact; pupils equally reactive to light and accommodation, cranial difficult assess given intubated and sedated status, strength accordingly severely globally decreased. Psychiatric: Affect appears flat, sedated, respiratory distress lessening status postintubation, no acute evidence of depressive or anxiety feelings. Results Lab / Micro Data Result Diagrams: 10/12/21 04:20 10/12/21 04:50 Labs: Laboratory Results - last 24 hr 10/12/21 04:20: WBC 22.0 H, RBC 4.92, Hgb 15.4 H, Hct 50.2 H, MCV 102.0 H D, MCH 31.3, MCHC 30.7 L D, RDW Std Deviation 49.4 H, RDW Coeff of Manas 13.1, Plt Count 364, MPV 9.3, Immature Gran % (Auto) 0.400, Neut % (Auto) 46.1 L, Lymph % (Auto) 41.6 H, [place] % (Auto) 8.7, Eos % (Auto) 2.6, Baso % (Auto) 0.6, Absolute Neuts (auto) 10.1 H, Absolute Lymphs (auto) 9.14 H, Nucleated RBC % 0, Differential Comment SCANNED, Diff Path Review July foll 10/12/21 04:20: Sodium Cancelled, Potassium Cancelled, Chloride Cancelled, Carbon Dioxide Cancelled, Anion Gap Cancelled, BUN Cancelled, Creatinine Cancelled, Estim Creat Clear Calc Cancelled, Est GFR (MDRD) Af Amer Cancelled, Est GFR (MDRD) Non-Af Cancelled, BUN/Creatinine Ratio Cancelled, Glucose Cancelled, Calcium Cancelled, Troponin I High Sens Cancelled 10/12/21 04:50: D-Dimer Quant (PE/DVT) Cancelled 10/12/21 04:50: B-Natriuretic Peptide 490.1 H 10/12/21 04:50: Sodium 138, Potassium 4.7, Chloride 108 H, Carbon Dioxide 20.0 L, Anion Gap 10, BUN 24 H, Creatinine 1.25 H, Estim Creat Clear Calc 30.68, Est GFR (MDRD) Af Amer 53 L, Est GFR (MDRD) Non-Af 44 L, BUN/Creatinine Ratio 19.2, Glucose 390 H, Calcium 7.9 L, Troponin I High Sens 72 H Radiology Impression Chest X-Ray 10/12/21 04:25 IMPRESSION: Endotracheal tube terminates just inferior to the clavicle heads. This appears to be 3.5 cm above the sal, although the sal is not well defined on this exam. Multifocal pneumonia. Electronically Signed: Joseph López MD at 4:57 EDT Reading Location ID and State: [facility] / [place] Tel , Service support , Assessment & Plan Assessment/Plan (1) Respiratory failure: PLAN: Plan The patient is a 76 y/o F w/ PMHx: Asthma with allergic rhinitis, HTN, HLD, CAD s/p PCI w/ Hx HI, Ischemic cardiomyopathy, Depression and Anxiety, Diabetes mellitus type II with neuropathy, GERD, Hx Rheumatic fever, Hypothyroidism, Rheumatoid arthritis, Fibromyalgia, Obesity, recent admission 10/09/21-10/11/21 secondary to episodes noted on HM of wide complex tachycardia placed on amiodarone and taken for cardiac catheterization with occlusive CAD circumflex artery and diagonal branch LCA with PCI performed with discharge on increased BB regimen off amiodarone with no further arrythmia who now re-presents to the [facility] ED on 10/12/21 with history of onset of significantly acutely worsening dyspnea when up attempting to use the restroom just prior to ED presentation prompting call for EMS. #1. Acute Hypoxic Respiratory Failure secondary to Acute Flash Pulmonary Edema and potential although lower suspicion pneumonia, possible gram-negative/gram-positive organisms with elevated cardiac troponin suspected likely secondary to demand: We will admit to the ICU, continue intubated and sedated status, maintain on nitroglycerin drip, continue IV diuresis, recent echocardiogram during 10/09/2021 admission therefore will defer repeat, will request research and development technician and cardiology involvement, magnesium level requested, recent TSH normal, will cycle cardiac enzymes, continue medical therapy with aspirin, Plavix, metoprolol, losartan, statin therapy. Will continue ATC budesonide, PRN albuterol, maintained on IV Zosyn and Vancomycin with MRSA screen pending given significant presentation but if more evidence only secondary to flash pulmonary edema may de-escalate abx therapy, HOB, IS parameters w/ pending sputum cultures, respiratory viral full panel and urine antigens. #2. Recent wide complex tachycardia, VT: Recent discharge with transient amiodarone usage with no further cardiac arrhythmias following PCI x2, started on an increased beta-marty therapy, echocardiogram 10/09/2021 with mild segmental systolic dysfunction, EF 50%, mildly enlarged LA, trivial MVI, trivial TVI, mild , trivial PVI, diastolic function indeterminate. #3. CAD with history HI, ischemic cardiomyopathy with recent PCI: Patient with prior PCI however did have recent cardiac catheterization with noted occlusive CAD circumflex artery and diagonal branch LCA with PCI performed, will continue patient aspirin, plavix, metoprolol, losartan, statin therapy. #4. Chronic asthma with allergic rhinitis: We will continue patient home montelukast, loratadine as well as nasal sprays with as needed albuterol if necessary, encourage head of bed and I-S. #5. Hypertension: Continue home regimen including losartan, metoprolol, PRN hydralazine. #5. Hyperlipidemia: Continue home statin regimen. #6. Diabetes mellitus type II with neuropathy: Hold oral home regimen, NPO status, q 6 hour accu checks w/ ISS. #7. Hypothyroidism: Continue home synthroid regimen, 10/09/21 TSH 2.35. #8. Depression and anxiety: Noted in history, not on any medications currently, encourage continued outpatient follow-up. #9. Obesity: Weight loss and lifestyle changes encouraged. #10. Rheumatoid arthritis, fibromyalgia: Not on any chronic regimen from review of list, encourage continued outpatient follow-up with rheumatology as needed, will continue patient low-dose tramadol regimen as needed. #11. DVT prophylaxis: SCDs, lovenox. #12. CODE status: Patient HCPOA is her who is present and living will is currently in place. Discussed CODE status at length including difference between FULL code, DNR-CCA and DNR-CC status. Following discussions about the differences in these status, requested Full Code status continuation. Advanced Care Planning Face to Face Time: 16 minutes. Charges/Coding Visit Charges Inpatient E&M: 90793 Init Hosp L3 Procedures Hospitalists Procedures: 17395 Advncd Care Plan 30 Min
--- NOTE | 2021-10-12 05:45 | CT_ITS ---
STUDY: CTA CHEST REASON FOR EXAM: Female, 76 years old. elevated d-dimer, respiratory failure. HEART STENTS PLACED 2 DAYS AGO RADIATION DOSAGE (If Supplied By Facility): CTDIvol = ( 13.96 ) mGy, DLP = ( 951.37 ) mGycm TECHNIQUE: The examination was performed with the intravenous administration of IV 100mL Isovue-300. Post-processing of the angiographic images was performed, with multiplanar reformation and 3D reconstruction. Individualized dose optimization techniques were used for this CT. COMPARISON: None. FINDINGS: Significant image degradation from respiratory motion, positioning of the arms along the sides, and body habitus. LUNGS: Hazy and groundglass opacities throughout the lungs with septal thickening. More focal consolidation in the lower lobes greater on the right. PLEURA: Small bilateral pleural effusions. No pneumothorax. PULMONARY VESSELS: No pulmonary emboli identified in the large central pulmonary arteries. Evaluation of smaller vessels is limited and pulmonary emboli cannot be entirely excluded. MEDIASTINUM: Unremarkable. HEART: Not enlarged. AORTA/GREAT VESSELS: Thoracic aorta is normal caliber. No aneurysm or dissection. UPPER ABDOMEN: No acute findings. BONES/SOFT TISSUES: No acute findings. OTHER: Tip of endotracheal tube above the sal. NG tube tip in the stomach.. CT/CTA Chest W/WO Contrast IMPRESSION: Limited study. No evidence of large central pulmonary emboli. Smaller pulmonary emboli not entirely excluded. Findings consistent with pulmonary edema/congestive heart failure. More focal consolidation in the lower lobes possible pneumonia or confluent edema. Bilateral pleural effusions. Electronically Signed: Agnieszka Ulloa MD at 7:49 EDT ,
[2021-10-12 06:06] LABS: Allen Test Positive; Base Excess -7 mmol/L (-2 to +2); Bicarbonate 19.5 mmol/L (22-26); Blood Gas Specimen Type ART; FI02 100; Mode AC; O2 Delivery Device ET Tube; PEEP 5; PO2 267 mmHG (75-100); RR 14; SITE L Radial; SO2 100 % (95-99); Total Carbon Dioxide 21 mmol/L; Vt 450; pCO2 40.6 mmHg (35-45); pH 7.29 (7.35-7.45)
[2021-10-12 06:14] LABS: Magnesium 2.2 mg/dL (1.6-2.6)
--- NOTE | 2021-10-12 06:51 | ED.RN ---
report given to Anabel in ICU.
[2021-10-12 06:56] LABS: Reflex Troponin-HS? (from REC) Y
--- NOTE | 2021-10-12 06:57 | CON.PCM.CC_ITS ---
Assessment & Plan Assessment/Plan (1) Respiratory failure: (2) Hypoxemia: PLAN: Plan RECOMMENDATIONS: 1. Continue assist control mode of mechanical ventilation. Wean FiO2 for satur ations greater than 90%. 2. CTA chest is pending. 3. Discontinue nitroglycerin infusion. 4. Continue propofol and fentanyl for sedation. 5. Cardiology consultation. 6. Gentle diuresis as tolerated by hemodynamics and renal function. 7. Continue empiric antimicrobials. Obtain sputum culture. 8. Hold on tube feeds today. 9. Continue appropriate ICU prophylaxis. IMPRESSIONS: 1. Acute hypoxemic respiratory failure Clinical suspicion for flash pulmonary edema. However, pneumonia is also a possibility. Alternatively, venous thromboembolic disease is yet another potential etiology. Plan to continue assist-control mode of mechanical v entilation and wean FiO2 for saturations greater than 90%. CTA chest is currently pending. Continue propofol and fentanyl for sedation. Plan to continue diuresis as tolerated by hemodynamics and renal function. Continue empiric antimicrobials, pending infectious work-up. In light of the patient's hemodynamic status, will discontinue nitro. 2. History of wide-complex tachycardia/coronary artery disease/ischemic cardiomyopathy Cardiology consultation is pending. Continue medical management per home medication regimen. 3. Obesity/asthma/allergic rhinitis/hypothyroidism/hypertension/hyperlipidemia Complicates care, management, recovery and prognosis. Continue home medications as indicated. TIME: 34 minutes of critical care time, independent of procedures, was spent addressing the patient's acute hypoxemic respiratory failure, review of all data and collaboration with the care team. HPI Consult Data Date of Consult: 10/13/21 HPI Narrative Reason for Consultation: Acute hypoxemic respiratory failure HPI Narrative: The patient is a 76-year-old female, with a history as outlined below, who presented to the emergency department on October 12 with acute onset shortness of breath and hypoxemia. The patient has documented history of asthma, coronary artery disease, ischemic cardiomyopathy, diabetes mellitus, rheumatoid arthritis and obesity. The patient was just admitted to the hospital October 09 through with wide-complex tachycardia, which was initially treated with amiodarone. She was taken for cardiac catheterization, which revealed occlusive coronary disease in the circumflex artery and diagonal branch of the left coronary artery, for which stents were placed. On presentation to the emergency department, the patient was noted to be afebrile but was hypertensive with a blood pressure of 190/124 mmHg. She was notably hypoxemic as well. Initial laboratory evaluation demonstrated a white blood cell count of 22,000. D-dimer was elevated at 1.6. Chemistry profile demonstrated a creatinine of 1.25 with a lactate of 6.0. Troponins were elevated at 72 with a BNP of 490. Procalcitonin was unremarkable. Chest x-ray demonstrated multifocal airspace disease. Due to the patient's tenuous respiratory status, she was intubated in the emergency department. She was provided with IV Lasix and placed on a nitro drip. Surface echocardiogram dated October 10 demonstrated normal LV size with mild segmental systolic dysfunction and an ejection fraction of 50%. [facility] Medical History Allergic rhinitis Ambulates with cane Anxiety Arthritis Asthma Atherosclerotic heart disease of [place] coronary artery without angina pectoris Back pain Cardiology follow-up encounter COVID-19 Depressive disorder Diabetes Diabetic neuropathy Dyspepsia Essential hypertension Fibromyalgia Hearing loss High cholesterol History of echocardiogram History of heart attack History of rheumatic fever History of steroid therapy History of tachycardia Hyperlipidemia Hypertension Hypothyroidism Insomnia Ischemic cardiomyopathy Left against medical advice (12/19/20) Obesity Osteoarthritis Rheumatoid arthritis Tachycardia Thyroid disease Thyromegaly Varicosities of leg Vitamin D deficiency Walker as ambulation aid Wears dentures Wears glasses Wears hearing aid Home Medications azelastine 0.05 % eye drops 1 drp ophthalmic (eye) BID 01/29/18 [History Last Taken 12/19/20] azelastine 137 mcg (0.1 %) nasal spray aerosol 1 spray intranasal BID 01/29/18 [History Last Taken 12/19/20] loratadine 10 mg tablet (Claritin) 10 mg PO DAILY 01/29/18 [History Last Taken 12/18/20] losartan 50 mg tablet 50 mg PO DAILY 01/29/18 [History Last Taken 05/27/21 50 MG] triamterene 37.5 mg-hydrochlorothiazide 25 mg tablet 1 tab PO QODAY water pill 01/29/18 [History Last Taken 12/18/20] cascara sagrada 450 mg capsule 450 mg PO BID SUPPLEMENT 12/19/20 [History Last Taken 12/18/20] levothyroxine 100 mcg tablet 50 mcg PO QODAY THYROID 12/19/20 [History Last Taken 05/27/21 50 mcg] montelukast 5 mg chewable tablet 5 mg PO QHS ALLERGIES 12/19/20 [History Last Taken 12/19/20] clopidogrel 75 mg tablet (Plavix) 75 mg PO QDAY #90 tabs 02/08/21 [Rx Last Taken 05/23/21] fluticasone propionate 220 mcg/actuation HFA aerosol inhaler (Flovent HFA) 1 puff inhalation QODAY 02/28/21 [History Last Taken Unknown] levothyroxine 100 mcg tablet 100 mcg PO Q OTHER DAY 02/28/21 [History Last Taken Unknown] tramadol 50 mg tablet 25 mg PO DAILY PRN Pain, Moderate 02/28/21 [History Last Taken Unknown] pravastatin 40 mg tablet 40 mg PO QHS #90 tabs 04/22/21 [Rx Last Taken Unknown] aspirin 81 mg tablet,delayed release 81 mg PO 1700 05/22/21 [History Last Taken 05/23/21] Food drops 3 drp sublingual Q OTHER DAY 05/28/21 [History Last Taken Unknown] ergocalciferol (vitamin D2) 1,250 mcg (50,000 unit) capsule 50,000 unit PO 2XW 05/28/21 [History Last Taken Unknown] fluticasone propionate 50 mcg/actuation nasal spray,suspension 1 spray intranasal BID 05/28/21 [History Last Taken Unknown] potassium chloride 10 mEq tablet,extended release(part/cryst) 10 meq PO DAILY 05/28/21 [History Last Taken Unknown] dapagliflozin 10 mg tablet (Farxiga) 10 mg PO DAILY per Dr. Thomas 10/08/21 [History Last Taken Unknown] fluorometholone 0.1 % eye drops,suspension 1 drp EACH EYE BID eye drops 10/09/21 [History Last Taken 10/08/21] metoprolol tartrate 100 mg tablet 100 mg PO BID #60 tabs 10/11/21 [Rx Last Taken Unknown] Allergy/AdvReac Type Severity Reaction Status Date / Time aspirin Allergy Intermediate heart Verified 10/12/21 05:44 races, dizziness povidone-iodine Allergy Intermediate rash Verified 10/12/21 05:44 [From Betadine] soap [From Betadine] Allergy Intermediate rash Verified 10/12/21 05:44 amitriptyline Allergy Unknown Unknown Verified 10/12/21 05:44 doxepin Allergy Unknown unknown Verified 10/12/21 05:44 guaifenesin [From Entex LA] Allergy Unknown Unknown Verified 10/12/21 05:44 latex Allergy Unknown Unknown Verified 10/12/21 05:44 phenylephrine [From Entex LA] Allergy Unknown Unknown Verified 10/12/21 05:44 phenylpropanolamine Allergy Unknown Unknown Verified 10/12/21 05:44 [From Entex LA] pseudoephedrine Allergy Unknown Unknown Verified 10/12/21 05:44 Sulfa (Sulfonamide Allergy Unknown Unknown Verified 10/12/21 05:44 Antibiotics) Family History Father Asthma Diabetes High cholesterol Heart disease Hypertension Mother Arthritis Diabetes Heart disease Hypertension Sister Arthritis Lupus Brother Arthritis Surgical History History of cardiac catheterization History of colonoscopy (05/27/21) History of coronary artery stent placement (12/20/20) History of coronary artery stent placement History of hysterectomy History of repair of rectocele Social History household members: spouse Smoking Status: Never smoker alcohol intake: never substance use type: does not use ROS Review of Systems ROS Unobtainable: due to endotracheal tube Physical Exam Const no apparent distress General Appearance: intubated and patient mechanically ventilated Nutritional Appearance: obese HEENT normocephalic and head/scalp atraumatic Mouth: endotracheal tube in place and OG tube in place Eyes PERRL and EOMs intact bilaterally Neck supple General: trachea midline Chest inspection of chest normal Resp normal respiratory effort Auscultation: Negative for rales, rhonchi or wheezes Cardio regular rate and regular rhythm GI normal to inspection, nondistended, normoactive bowel sounds Extremity no clubbing, cyanosis or edema Skin no rashes or lesions noted Neuro no focal motor deficits Sensorium / Orientation: sedated on vent Lab / Micro Data Result Diagrams: 10/13/21 03:05 10/13/21 03:05 Labs: Laboratory Results - last 24 hr 10/12/21 04:20: WBC 22.0 H, RBC 4.92, Hgb 15.4 H, Hct 50.2 H, MCV 102.0 H D, MCH 31.3, MCHC 30.7 L D, RDW Std Deviation 49.4 H, RDW Coeff of [place] 13.1, Plt Count 364, MPV 9.3, Immature Gran % (Auto) 0.400, Neut % (Auto) 46.1 L, Lymph % (Auto) 41.6 H, [place] % (Auto) 8.7, Eos % (Auto) 2.6, Baso % (Auto) 0.6, Absolute Neuts (auto) 10.1 H, Absolute Lymphs (auto) 9.14 H, Nucleated RBC % 0, Differential Comment SCANNED, Diff Path Review May foll 10/12/21 04:20: Sodium Cancelled, Potassium Cancelled, Chloride Cancelled, Carbon Dioxide Cancelled, Anion Gap Cancelled, BUN Cancelled, Creatinine Cancelled, Estim Creat Clear Calc Cancelled, Est GFR (MDRD) Af Amer Cancelled, Est GFR (MDRD) Non-Af Cancelled, BUN/Creatinine Ratio Cancelled, Glucose Cancelled, Calcium Cancelled, Troponin I High Sens Cancelled 10/12/21 04:50: D-Dimer Quant (PE/DVT) Cancelled 10/12/21 04:50: Lactic Acid 6.0 H* 10/12/21 04:50: B-Natriuretic Peptide 490.1 H 10/12/21 04:50: Sodium 138, Potassium 4.7, Chloride 108 H, Carbon Dioxide 20.0 L , Anion Gap 10, BUN 24 H, Creatinine 1.25 H, Estim Creat Clear Calc 30.68, Est GFR (MDRD) Af Amer 53 L, Est GFR (MDRD) Non-Af 44 L, BUN/Creatinine Ratio 19.2, Glucose 390 H, Calcium 7.9 L, Troponin I High Sens 72 H 10/12/21 05:26: D-Dimer Quant (PE/DVT) 1.60 H* 10/12/21 05:26: Magnesium 2.2 Micro: Microbiology 10/12/21 06:00 Urine Catheter - Hernandez Legionella Antigen - Final 10/12/21 06:00 Urine Catheter - Hernandez Streptococcus pneumoniae Antigen (M - Final 10/12/21 05:35 Nasal Secretion SARS-CoV-2 Antigen (Rapid) - Final ABG Data ABG results: ABG 10/12/21 05:59 Specimen Type ART Sample Site L Radial pH 7.29 L Bicarbonate Actual 19.5 L Total CO2 21 Base Excess -7 L O2 Saturation 100 H O2 % 100 ABG pCO2 40.6 ABG pO2 267 H Aureliano Test Positive Respiration Rate 14 O2 Delivery Device ET Tube Vent Mode AC Tidal Volume 450 POC PEEP 5 Radiology Impression Chest X-Ray 10/12/21 04:25 IMPRESSION: Endotracheal tube terminates just inferior to the clavicle heads. This appears to be 3.5 cm above the sal, although the sal is not well defined on this exam. Multifocal pneumonia. Electronically Signed: Joseph López MD at 4:57 EDT , KUB X-Ray 10/12/21 05:09 IMPRESSION: Enteric tube terminates over the gastric body with sidehole of the diaphragm. Electronically Signed: Joseph López MD at 5:41 EDT , Charges/Coding Procedures Hospitalists Procedures: 24740 Critial Care 1st Hr
[2021-10-12 06:58] LABS: Procalcitonin < 0.04 ng/mL (0.00-0.09)
[2021-10-12 08:27] LABS: Troponin-I HS 482 pg/mL (3.0-54.0)
[2021-10-12] MEDS: Chlorhexidine 15 ML PO ×2 (09:00→20:25)
[2021-10-12] MEDS: Famotidine 200 MG/20 ML MDV 20 MG in 0.9% Normal Saline (Pres. free 8 ML 300 MG IV ×2 (09:01→20:35)
[2021-10-12 09:19] LABS: Reflex Lactate? Y
--- NOTE | 2021-10-12 09:24 | ECHOLC_ITS ---
Version 2 Reason For Study: CHF Procedure This was a limited 2D transthoracic echocardiogram. Contrast injection was performed. Exam performed portable in ICU/CCU. Left Ventricle Normal LV size. The estimated ejection fraction is 15 %. There are regional wall motion abnormalities as specified. Infero-Basal: Akinetic. The rest of the wall segments are hypokinetic. Right Ventricle Normal RV size. Normal systolic function. Mitral Valve Normal mitral valve. Tricuspid Valve Normal tricuspid valve. Mild (1+) tricuspid valve insufficiency. Pulmonary artery systolic pressure is 30 mmHg. Aortic Valve Trisinus/trileaflet aortic valve. Moderate focal aortic valve calcification. Pulmonic Valve Normal pulmonic valve. Great Vessels Normal aortic root. The pulmonary artery is normal size. Normal inferior vena cava. Pericardium/Pleural No pericardial effusion. Medication Diluted definity 2ml given slow IV push to enhance endocardial definition. MMode/2D Measurements & Calculations LVIDd: 4.7 cm IVSd: 1.2 cm LVAd ap4: 30.5 cm2 LVIDs: 3.7 cm LVPWd: 0.75 cm LVLd ap4: 7.2 cm FS: 22.1 % EDV(MOD-sp4): 107.0 ml EDV(sp4-el): 109.5 ml LVAs ap4: 25.1 cm2 LVLs ap4: 6.7 cm ESV(MOD-sp4): 77.1 ml ESV(sp4-el): 80.1 ml EF(MOD-sp4): 27.9 % EF(sp4-el): 26.8 % LVAd ap2: 30.7 cm2 SV(MOD-sp4): 29.8 ml SV(MOD-sp2): 25.3 ml LVLd ap2: 6.9 cm EDV(MOD-sp2): 113.9 ml EDV(sp2-el): 116.0 ml LVAs ap2: 26.8 cm2 LVLs ap2: 6.6 cm ESV(MOD-sp2): 88.7 ml ESV(sp2-el): 92.2 ml EF(MOD-sp2): 22.2 % SV(sp4-el): 29.4 ml Doppler Measurements & Calculations TR max bernardino: 257.4 cm/sec TR max P.5 mmHg ECHO/Echo Limited w/Contrast Interpretation Summary Normal LV size. The estimated ejection fraction is 15 %. Mild (1+) tricuspid valve insufficiency. There are regional wall motion abnormalities as specified. Above consistent with [place] Compared to previous study, the left ventricula r systolic function has worsened.. Contrast injection was performed. Ordering Physician: Mo Rao Referring Physician: Su Thomas Performed By: Esperanza Murphy, ADALBERTO, RVT
--- NOTE | 2021-10-12 09:55 | RAD_ITS ---
EXAM: XR ABDOMEN, 1 VIEW CLINICAL INDICATION: OG tube placement. TECHNIQUE: Frontal supine view of the abdomen/pelvis. This report was created using [employer] report generation technology. COMPARISON: 10/12/2021. FINDINGS: LOWER THORAX: No acute pathology. GASTROINTESTINAL TRACT: Unremarkable. Non-obstructive. No bowel or stomach distention. ORGANS: Unremarkable as visualized. No organomegaly. No abnormal calcifications. BONES/JOINTS: No acute pathology. SOFT TISSUES: No acute pathology. TUBES, LINES AND DEVICES: OG tube tip is inside the gastric cavity and the sidehole is at the EG junction. Distal repositioning will be helpful. ET tube tip is 2 cm above the sal. RAD/Abdomen Single View (Portable) IMPRESSION: Successful distal repositioning of NG tube, tip is in the proximal gastric cavity but the sidehole is at the EG junction. Distal repositioning will be helpful. Electronically Signed: Abelardo Perez MD at 11:12 EDT ,
--- NOTE | 2021-10-12 10:33 | PCM.CONS.C ---
Assessment & Plan Assessment/Plan (1) Pulmonary edema: PLAN: Patient presents with acute pulmonary edema requiring intubation. The etiology of the above is unclear. She has been compliant with her medications and with her preserved ejection fraction estimated to be 50% on an echocardiogram performed and interpreted by Dr. Joseph Stahl MD it does not appear that this is due to systolic dysfunction. Her echocardiogram performed at this morning demonstrates a significant reduction in left ventricular systolic function with an estimated ejection fraction of 15% with a Takotsubo pattern. I am not sure whether she has had any recent other stressors. (2) Wide-complex tachycardia: PLAN: Patient had a previous history of a wide-complex tachycardia. It is unclear whether this was ischemic in etiology or primary arrhythmic or secondary to increased adrenergic stimulation. I would recommend loading patient with intravenous amiodarone and transitioning to oral amiodarone. Would also recommend that further discussions with EP be undertaken. She still has the event monitor and it would be prudent to evaluate this to see whether there were any arrhythmic events. If this was normal then its excludes an arrhythmic etiology. I would recommend checking from the [facility]. (3) History of coronary artery stent placement: PLAN: Patient is status post previous angioplasty and stenting most recently of the circumflex artery and the diagonal vessel. We will continue on the current medical therapy with aspirin clopidogrel and beta-marty (4) Ischemic cardiomyopathy: PLAN: Patient has ischemic cardiomyopathy which is superimposed on the current probably nonischemic cardiomyopathy. The plan to be to continue the same medications. (5) Essential hypertension: PLAN: Blood pressure appears to be under good control at this time I would not suggest that we make any changes. (6) Hyperlipidemia: PLAN: Does have a history of hyperlipidemia and will continue with aggressive risk factor modification. HPI Consult Data Date of Consult: 10/13/21 HPI Narrative HPI Narrative: CHIRAG RUFFIN, is a 76 F who presents to the emergency room after being discharged less than 48 hours later with marked shortness of breath requiring intubation. She was recently admitted to the hospital based upon event monitor findings concerning for ventricular tachycardia superimposed upon a history of underlying CAD, PCI, ischemic mediated cardiomyopathy, hyperlipidemia, hypertension, diabetes mellitus, and obesity.? She has previously been evaluated in November 2020 for concerns of an acute non-ST segment elevation [place].? At that time she underwent evaluation both noninvasively and invasively.? From a noninvasive standpoint she had a transthoracic echocardiogram.? According to the report her left ventricle demonstrated an LVEF of 47%.? She underwent diagnostic cardiac catheterization that demonstrated angiographically significant CAD.? She subsequently received PCI/RBAVO to the RCA and LCx systems.? It does not appear she has required additional cardiovascular diagnostic studies since that time until recently.? She was recently triaged and medications changed as well as an event monitor ordered by Dr. Joseph Stahl MD of the heart group. The event monitor is demonstrated findings compatible with sinus rhythm as well as episodes of wide-complex tachycardia concerning for ventricular tachycardia.? Based upon the above findings it was recommended that she present to the [facility] emergency department for further evaluation and care including inpatient evaluation and care to reassess her cardiovascular status including her coronary status with diagnostic cardiac catheterization. He performed the heart catheterization which demonstrated the following: LEFT MAIN: Angiographically normal, LEFT ANTERIOR DESCENDING ARTERY: MID LAD: s/p SP and DX: occluded DIAGONAL 1: Proximal - 75 % Stenosis CIRCUMFLEX ARTERY: pre stent: 75 % Stenosis PROX CIRC: Previously placed stent is patent OM 2: Ostial - small caliber vessel: ostial: subtotally occluded c/w stent intermediate RIGHT CORONARY ARTERY: DISTAL RCA: Previously placed stent is patent RIGHT AV SEGMENT: 50 % Stenosis Based on the above an FFR was performed of the right coronary artery which was unremarkable and she did have stenting of the diagonal vessel as well as the circumflex artery. She was subsequently discharged for outpatient follow-up with Dr. Joseph Stahl MD and his team.. She was not on any antiarrhythmic but her beta-marty dose was increased. It is not clear whether she had any chest discomfort or any emotional conflict prior to the above. Her EKG however did not demonstrate any acute changes. [facility] Medical History Allergic rhinitis Ambulates with cane Anxiety Arthritis Asthma Atherosclerotic heart disease of jamul coronary artery without angina pectoris Back pain Cardiology follow-up encounter COVID-19 Depressive disorder Diabetes Diabetic neuropathy Dyspepsia Essential hypertension Fibromyalgia Hearing loss High cholesterol History of echocardiogram History of heart attack History of rheumatic fever History of steroid therapy History of tachycardia Hyperlipidemia Hypertension Hypothyroidism Insomnia Ischemic cardiomyopathy Left against medical advice (12/19/20) Obesity Osteoarthritis Rheumatoid arthritis Tachycardia Thyroid disease Thyromegaly Varicosities of leg Vitamin D deficiency Walker as ambulation aid Wears dentures Wears glasses Wears hearing aid Home Medications azelastine 0.05 % eye drops 1 drp ophthalmic (eye) BID 01/29/18 [History Last Taken 12/19/20] azelastine 137 mcg (0.1 %) nasal spray aerosol 1 spray intranasal BID 01/29/18 [History Last Taken 12/19/20] loratadine 10 mg tablet (Claritin) 10 mg PO DAILY 01/29/18 [History Last Taken 12/18/20] losartan 50 mg tablet 50 mg PO DAILY 01/29/18 [History Last Taken 05/27/21 50 MG] triamterene 37.5 mg-hydrochlorothiazide 25 mg tablet 1 tab PO QODAY water pill 01/29/18 [History Last Taken 12/18/20] cascara sagrada 450 mg capsule 450 mg PO BID SUPPLEMENT 12/19/20 [History Last Taken 12/18/20] levothyroxine 100 mcg tablet 50 mcg PO QODAY THYROID 12/19/20 [History Last Taken 05/27/21 50 mcg] montelukast 5 mg chewable tablet 5 mg PO QHS ALLERGIES 12/19/20 [History Last Taken 12/19/20] clopidogrel 75 mg tablet (Plavix) 75 mg PO QDAY #90 tabs 02/08/21 [Rx Last Taken 05/23/21] fluticasone propionate 220 mcg/actuation HFA aerosol inhaler (Flovent HFA) 1 puff inhalation QODAY 02/28/21 [History Last Taken Unknown] levothyroxine 100 mcg tablet 100 mcg PO Q OTHER DAY 02/28/21 [History Last Taken Unknown] tramadol 50 mg tablet 25 mg PO DAILY PRN Pain, Moderate 02/28/21 [History Last Taken Unknown] pravastatin 40 mg tablet 40 mg PO QHS #90 tabs 04/22/21 [Rx Last Taken Unknown] aspirin 81 mg tablet,delayed release 81 mg PO 1700 05/22/21 [History Last Taken 05/23/21] Food drops 3 drp sublingual Q OTHER DAY 05/28/21 [History Last Taken Unknown] ergocalciferol (vitamin D2) 1,250 mcg (50,000 unit) capsule 50,000 unit PO 2XW 05/28/21 [History Last Taken Unknown] fluticasone propionate 50 mcg/actuation nasal spray,suspension 1 spray intranasal BID 05/28/21 [History Last Taken Unknown] potassium chloride 10 mEq tablet,extended release(part/cryst) 10 meq PO DAILY 05/28/21 [History Last Taken Unknown] dapagliflozin 10 mg tablet (Farxiga) 10 mg PO DAILY per Dr. Thomas 10/08/21 [History Last Taken Unknown] fluorometholone 0.1 % eye drops,suspension 1 drp EACH EYE BID eye drops 10/09/21 [History Last Taken 10/08/21] metoprolol tartrate 100 mg tablet 100 mg PO BID #60 tabs 10/11/21 [Rx Last Taken Unknown] Allergy/AdvReac Type Severity Reaction Status Date / Time aspirin Allergy Intermediate heart Verified 10/12/21 05:44 races, dizziness povidone-iodine Allergy Intermediate rash Verified 10/12/21 05:44 [From Betadine] soap [From Betadine] Allergy Intermediate rash Verified 10/12/21 05:44 amitriptyline Allergy Unknown Unknown Verified 10/12/21 05:44 doxepin Allergy Unknown unknown Verified 10/12/21 05:44 guaifenesin [From Entex LA] Allergy Unknown Unknown Verified 10/12/21 05:44 latex Allergy Unknown Unknown Verified 10/12/21 05:44 phenylephrine [From Entex LA] Allergy Unknown Unknown Verified 10/12/21 05:44 phenylpropanolamine Allergy Unknown Unknown Verified 10/12/21 05:44 [From Entex LA] pseudoephedrine Allergy Unknown Unknown Verified 10/12/21 05:44 Sulfa (Sulfonamide Allergy Unknown Unknown Verified 10/12/21 05:44 Antibiotics) Family History Father Asthma Diabetes High cholesterol Heart disease Hypertension Mother Arthritis Diabetes Heart disease Hypertension Sister Arthritis Lupus Brother Arthritis Surgical History History of cardiac catheterization History of colonoscopy (05/27/21) History of coronary artery stent placement (12/20/20) History of coronary artery stent placement History of hysterectomy History of repair of rectocele Social History household members: spouse Smoking Status: Never smoker alcohol intake: never substance use type: does not use Physical Exam Const no apparent distress Constitutional Narrative: Sedated General Appearance: cooperative HEENT hearing grossly normal bilaterally Head and Scalp: atraumatic Eyes EOMs intact bilaterally Neck General: normal visual inspection Chest inspection of chest normal and palpation of chest normal Resp normal respiratory effort Auscultation: clear to auscultation bilaterally Cardio regular rate, regular rhythm, S1 normal heart sound and S2 normal heart sound Jugular Venous Distention: JVD GI normal to inspection, nondistended, normoactive bowel sounds Extremity normal capillary refill and no pedal edema Peripheral Pulses: Yes pulses 2+ throughout and femoral pulses present Skin no rashes or lesions noted Neuro oriented x3 and CN's II-XII intact bilaterally Psych Appearance: grossly normal and appropriate Risk Stratification Risk Stratification Applicable: No Objective Data Vital Signs: Vital Signs Temp Pulse Resp BP Pulse Ox O2 Del Method FiO2 98.8 F 66 14 100/66 96 Mechanical Ventilator 50 10/12/21 07:15 10/12/21 07:42 10/12/21 07:15 10/12/21 07:15 10/12/21 07:15 10/12/21 07:15 10/12/21 07:15 Oxygen Delivery Method Mechanical Ventilator Weight: 179 lb 7.3 oz Body Mass Index (BMI) 31.8 Intake & Output: Intake and Output for Last 24 Hours 10/10/21 10/11/21 10/12/21 23:59 23:59 23:59 Intake Total 20.31 / 20.31 Balance 20.31 / 20.31 Lab / Micro Data Result Diagrams: 10/13/21 03:05 10/13/21 08:00 Labs: Laboratory Results - last 24 hr 10/12/21 04:20: WBC 22.0 H, RBC 4.92, Hgb 15.4 H, Hct 50.2 H, MCV 102.0 H D, MCH 31.3, MCHC 30.7 L D, RDW Std Deviation 49.4 H, RDW Coeff of Manas 13.1, Plt Count 364, MPV 9.3, Immature Gran % (Auto) 0.400, Neut % (Auto) 46.1 L, Lymph % (Auto) 41.6 H, [place] % (Auto) 8.7, Eos % (Auto) 2.6, Baso % (Auto) 0.6, Absolute Neuts (auto) 10.1 H, Absolute Lymphs (auto) 9.14 H, Nucleated RBC % 0, Differential Comment SCANNED, Diff Path Review July foll 10/12/21 04:20: Sodium Cancelled, Potassium Cancelled, Chloride Cancelled, Carbon Dioxide Cancelled, Anion Gap Cancelled, BUN Cancelled, Creatinine Cancelled, Estim Creat Clear Calc Cancelled, Est GFR (MDRD) Af Amer Cancelled, Est GFR (MDRD) Non-Af Cancelled, BUN/Creatinine Ratio Cancelled, Glucose Cancelled, Calcium Cancelled, Troponin I High Sens Cancelled 10/12/21 04:50: D-Dimer Quant (PE/DVT) Cancelled 10/12/21 04:50: Lactic Acid 6.0 H* 10/12/21 04:50: B-Natriuretic Peptide 490.1 H 10/12/21 04:50: Sodium 138, Potassium 4.7, Chloride 108 H, Carbon Dioxide 20.0 L, Anion Gap 10, BUN 24 H, Creatinine 1.25 H, Estim Creat Clear Calc 30.68, Est GFR (MDRD) Af Amer 53 L, Est GFR (MDRD) Non-Af 44 L, BUN/Creatinine Ratio 19.2, Glucose 390 H, Calcium 7.9 L, Troponin I High Sens 72 H 10/12/21 05:26: D-Dimer Quant (PE/DVT) 1.60 H* 10/12/21 05:26: Magnesium 2.2 10/12/21 05:26: Procalcitonin < 0.04 10/12/21 08:00: Troponin I High Sens 482 H* Micro: Microbiology 10/12/21 06:00 Urine Catheter - Hernandez Legionella Antigen - Final 10/12/21 06:00 Urine Catheter - Hernandez Streptococcus pneumoniae Antigen (M - Final 10/12/21 05:35 Nasal Secretion SARS-CoV-2 Antigen (Rapid) - Final ABG Data ABG results: ABG 10/12/21 05:59 Specimen Type ART Sample Site L Radial pH 7.29 L Bicarbonate Actual 19.5 L Total CO2 21 Base Excess -7 L O2 Saturation 100 H O2 % 100 ABG pCO2 40.6 ABG pO2 267 H Aureliano Test Positive Respiration Rate 14 O2 Delivery Device ET Tube Vent Mode AC Tidal Volume 450 POC PEEP 5 Cardiology Labs/Tests 10/12/21 04:20: WBC 22.0 H, RBC 4.92, Hgb 15.4 H, Hct 50.2 H, MCV 102.0 H D, MCH 31.3, MCHC 30.7 L D, Plt Count 364, MPV 9.3, Immature Gran % (Auto) 0.400, Neut % (Auto) 46.1 L, Lymph % (Auto) 41.6 H, [place] % (Auto) 8.7, Eos % (Auto) 2.6, Baso % (Auto) 0.6, Absolute Neuts (auto) 10.1 H, Nucleated RBC % 0 10/12/21 04:20: Sodium Cancelled, Potassium Cancelled, Chloride Cancelled, Carbon Dioxide Cancelled, Anion Gap Cancelled, BUN Cancelled, Creatinine Cancelled, Est GFR (MDRD) Af Amer Cancelled, Est GFR (MDRD) Non-Af Cancelled, BUN/Creatinine Ratio Cancelled, Glucose Cancelled, Calcium Cancelled 10/12/21 04:50: D-Dimer Quant (PE/DVT) Cancelled 10/12/21 04:50: Lactic Acid 6.0 H* 10/12/21 04:50: B-Natriuretic Peptide 490.1 H 10/12/21 04:50: Sodium 138, Potassium 4.7, Chloride 108 H, Carbon Dioxide 20.0 L, Anion Gap 10, BUN 24 H, Creatinine 1.25 H, Est GFR (MDRD) Af Amer 53 L, Est GFR (MDRD) Non-Af 44 L, BUN/Creatinine Ratio 19.2, Glucose 390 H, Calcium 7.9 L 10/12/21 05:26: D-Dimer Quant (PE/DVT) 1.60 H* 10/12/21 05:26: Magnesium 2.2 10/12/21 05:59: pH 7.29 L, Bicarbonate Actual 19.5 L, Base Excess -7 L, O2 Saturation 100 H, ABG pCO2 40.6, ABG pO2 267 H, Aureliano Test Positive Rhythm: EKG: ECHO: Stress Test: Cardiac Cath: PCI: CT Surgery: Holter monitor: EPS: PPM: CXR: Chest CT Scan: Radiography Diagnostic Testing: Radiology Impression Chest X-Ray 10/12/21 04:25 IMPRESSION: Endotracheal tube terminates just inferior to the clavicle heads. This appears to be 3.5 cm above the sal, although the sal is not well defined on this exam. Multifocal pneumonia. Electronically Signed: Joseph López MD at 4:57 EDT , KUB X-Ray 10/12/21 05:09 IMPRESSION: Enteric tube terminates over the gastric body with sidehole of the diaphragm. Electronically Signed: Joseph López MD at 5:41 EDT , Chest CTA 10/12/21 05:45 IMPRESSION: Limited study. No evidence of large central pulmonary emboli. Smaller pulmonary emboli not entirely excluded. Findings consistent with pulmonary edema/congestive heart failure. More focal consolidation in the lower lobes possible pneumonia or confluent edema. Bilateral pleural effusions. Electronically Signed: Agnieszka Ulloa MD at 7:49 EDT ,
[2021-10-12 10:38] LABS: Lactic Acid 1.9 mmol/L (0.4-1.9)
[2021-10-12] MEDS: Amiodarone 360 MG in Dextrose 5% Viaflo Bag 192.8 ML 33.3 MG CONT INF (11:07)
[2021-10-12] MEDS: Insulin Lispro 100 UNIT/ML INSULN.PEN SC ×3 (11:12→20:38)
[2021-10-12] MEDS: Levothyroxine 50 MCG Tablet NG (11:20)
[2021-10-12] MEDS: Clopidogrel Bisulfate 75 MG Tablet NG (11:20)
[2021-10-12] MEDS: Aspirin 81 MG TAB.CHEW NG (11:20)
[2021-10-12] MEDS: Enoxaparin 40 MG/0.4 ML Syringe SC (11:24)
[2021-10-12 11:26] LABS: Bedside Glucose 246 mg/dL (74-106)
[2021-10-12] MEDS: Furosemide 40 MG/4 ML Vial IV ×2 (11:40→18:10)
[2021-10-12] MEDS: Losartan Potassium 50 MG Tablet PO (11:40)
[2021-10-12] MEDS: Propofol 10MG/Ml 1,000 MG/100 ML Bottle 7.6 MG CONT INF (11:52)
--- NOTE | 2021-10-12 12:29 | PCM.HOSP.N ---
Hospitalist Note Patient was seen and examined briefly in the ICU today, she remains sedated on the ventilator, I talked with cardiology briefly about her care-her EF is 15% on her echocardiogram, echocardiogram on 10/10/2021 showed an ejection fraction of 50%. Patient's LV ejection fraction on the cardiac catheterization on 10/10/2021 was 45%. I talked with the patient's family today before the results of the echocardiogram were resulted, I told them that she would need to remain on the ventilator and diuresed, she might need medication to support her blood pressure. I told them the prognosis was guarded at this time.
--- NOTE | 2021-10-12 12:54 | PCM.RX.CS ---
Consult Pharmacy has been consulted to manage selected antiobiotic: Vancomycin Type of Consult: New start Suspected Infection: Other Prior Doses of Antibiotics Received/Current Regimen: Loading dose of 2000mg iv x 1 10.12.21. Labs: Sodium 138 mmol/L (136-145) 10/12/21 04:50 Potassium 4.7 mmol/L (3.5-5.1) 10/12/21 04:50 Chloride 108 mmol/L (98-107) H 10/12/21 04:50 Carbon Dioxide 20.0 mmol/L (21.0-32.0) L 10/12/21 04:50 Anion Gap 10 (5-15) 10/12/21 04:50 BUN 24 mg/dL (7-18) H 10/12/21 04:50 Creatinine 1.25 mg/dL (0.55-1.02) H 10/12/21 04:50 Est GFR (MDRD) Af Amer 53 mL/min (>60) L 10/12/21 04:50 Est GFR (MDRD) Non-Af 44 mL/min (>60) L 10/12/21 04:50 BUN/Creatinine Ratio 19.2 RATIO (10-20) 10/12/21 04:50 Glucose 390 mg/dL (74-106) H 10/12/21 04:50 Microbiology: Microbiology 10/12/21 06:00 Urine Catheter - Hernandez Legionella Antigen - Final 10/12/21 06:00 Urine Catheter - Hernandez Streptococcus pneumoniae Antigen (M - Final 10/12/21 05:35 Nasal Secretion SARS-CoV-2 Antigen (Rapid) - Final Weight used for dosin.4 kg Estimated Creatinine Clearance: 31 ml/min Goal Trough: 15-20 mcg/mL Pharmacy Plan for Drug Dosing: Will start 1250mg iv q24h. Trough level before 3rd cumulative dose. Pharmacy Service will continue to monitor and adjust dosing as required. Follow-Up Labs: Trough Vancomycin - 7..22 @0930 before 1000 dose
--- NOTE | 2021-10-12 13:18 | RAD_ITS ---
INDICATION: picc line placement EXAMINATION/TECHNIQUE: X-RAY - XR Chest 1 View COMPARISON: 10/12/2021 chest x-ray. FINDINGS: LINES/DEVICES: Endotracheal tube tip 2.2 cm from the sal. Consider retracting 2 to 3 cm. Right sided peripherally inserted central venous catheter tip at the proximal cavoatrial junction. No pneumothorax. Enteric tube with proximal side port at the level of the gastroesophageal junction. Consider advancing 3 to 4 cm. LUNGS: Bilateral patchy airspace disease, especially in the lower lobes again demonstrated. No significant interval change. No significant pleural effusion exemplified. No nodule. No pneumothorax. MEDIASTINUM AND CARDIOVASCULAR STRUCTURES: Normal size and contour of the cardiomediastinal silhouette. No evidence of pulmonary vascular congestion. BONES AND SOFT TISSUES: No fracture or focal osseous lesion. RAD/CXR for Line Placement IMPRESSION: 1. Persistent multifocal pneumonia, not appreciably changed. 2. Endotracheal tube 2.2 cm from the sal. Consider retracting 2 to 3 cm. 3. Right PICC line tip at the proximal cavoatrial junction. 4. Enteric tube proximal side port at the level of the gastroesophageal junction. Consider advancing 3 to 4 cm. Electronically Signed: Mikey Jensen DO at 15:03 EDT ,
[2021-10-12] MEDS: Acetaminophen 325 MG Tablet 650 MG PO ×2 (13:41→20:24)
[2021-10-12 16:21] LABS: Bedside Glucose 198 mg/dL (74-106)
[2021-10-12] MEDS: Amiodarone 360 MG in Dextrose 5% Viaflo Bag 192.8 ML 16.7 MG CONT INF (17:45)
[2021-10-12] MEDS: Budesonide Respules 0.5 MG/2 ML AMPUL.NEB. INHALATION (18:41)
[2021-10-12 19:26] LABS: M R Staph aureus DNA By PCR Negative (Negative); Probe Check PASS; Specimen Processing Control PASS
[2021-10-12] MEDS: Pravastatin 40 MG Tablet NG (20:24)
[2021-10-12] MEDS: Propofol 10MG/Ml 1,000 MG/100 ML Bottle 12.6 MG CONT INF (20:49)
[2021-10-12 21:16] LABS: Bedside Glucose 226 mg/dL (74-106)
[2021-10-13] VITALS (55 sets, daily range): BP systolic 98–149; BP diastolic 39–101; PULSE 45–81; RESP 13–226; TEMP 37.5–38; O2SAT 91–99
[2021-10-13] MEDS: Insulin Lispro 100 UNIT/ML INSULN.PEN SC ×4 (00:06→17:39)
[2021-10-13 00:15] LABS: Troponin-I HS 3259 pg/mL (3.0-54.0)
[2021-10-13 00:30] LABS: Bedside Glucose 248 mg/dL (74-106)
[2021-10-13 03:13] LABS: Absolute Lymphocyte Count 3.47 X10^3/uL (0.83-4.51); Absolute Neutrophil Count 13.4 X10^3/uL (2.0-7.7); Basophil# 0.08 X10^3/uL; Basophil% 0.4 % (0-1); Eosinophil# 0.03 X10^3/uL; Eosinophils% 0.2 % (0-5); Hematocrit 38.1 % (37-47); Hemoglobin 12.9 g/dL (12.0-15.0); Lymphocyte # 3.47 X10^3/ul (0.83-4.51); Lymphocyte % 17.9 % (19-41); Mean Corp Hgb Conc 33.9 g/dL (32-36); Mean Corpuscular Hgb 31.5 pg (27.0-32.0); Mean Corpuscular Volume 92.9 fL (81-99); Mean Platelet Vol. 9.3 fl (6.2-12.0); Monocyte# 2.26 X10^3/uL; Monocyte% 11.7 % (0-10); NRBC Flagged by Analyzer 0 % (0-5); Neutrophil # 13.43 X10^3/uL (2.7-7.7); Neutrophil % 69.3 % (47-70); POSITIVE DIFFERENTIAL YES; Platelet Count 344 K/mm3 (150-450); White Blood Count 19.4 K/mm3 (4.4-11.0)
[2021-10-13 03:21] LABS: Differential Indicated SCAN CRITERIA MET
[2021-10-13 03:37] LABS: ALB/GLOB Ratio 0.8 RATIO (0.9-2.4); AST(SGOT) 40 U/L (15-37); Alanine Aminotransfer ALT/SGPT 31 U/L (13-56); Albumin, Serum 2.7 g/dL (3.2-5.0); Alkaline Phosphatase 54 U/L (45-117); Anion Gap 9 (5-15); BUN 22 mg/dL (7-18); Calcium,Total 7.1 mg/dL (8.5-10.1); Chloride 108 mmol/L (98-107); EST Glomerular Filtration Rate 51 mL/min (>60); Est Glom Filt Rate - Afr Amer 62 mL/min (>60); Estimated Creatinine Clearance 33.34 ml/min; Globulin 3.2 g/dL (2.2-4.2); Glucose 255 mg/dL (74-106); Potassium 2.6 mmol/L (3.5-5.1); Protein, Total 5.9 g/dL (6.4-8.2); Sodium Level 139 mmol/L (136-145)
[2021-10-13 03:46] LABS: Differential Comment SCANNED
[2021-10-13 04:35] LABS: Magnesium 1.5 mg/dL (1.6-2.6); Phosphorus 2.7 mg/dL (2.5-4.9)
[2021-10-13] MEDS: Potassium Chloride 20mEq/100mL 20 MEQ/100 ML IV.SOLN. 100 MEQ IV BOLUS ×2 (04:51→05:57)
[2021-10-13] MEDS: Propofol 10MG/Ml 1,000 MG/100 ML Bottle 7.6 MG CONT INF ×2 (04:51→15:39)
--- NOTE | 2021-10-13 05:43 | PN.CC_ITS ---
Assessment & Plan Assessment/Plan (1) Respiratory failure: (2) Hypoxemia: PLAN: Plan RECOMMENDATIONS: 1. Continue assist control mode of mechanical ventilation. Wean FiO2 for satur ations greater than 90%. 2. Continue Levophed to maintain a mean arterial pressure at or above 65 mmHg. 3. Continue antimicrobials as ordered. 4. Aggressive potassium and magnesium repletion. 5. Okay to initiate tube feeds today. 6. Discontinue diuretics given vasopressor requirement. 7. Continue appropriate ICU prophylaxis. IMPRESSIONS: 1. Acute hypoxemic respiratory failure Clinical suspicion for flash pulmonary edema. However, pneumonia is also a possibility. CTA chest was negative for PE. The patient's echocardiogram did reveal a drop in her ejection fraction from 50% to 15% over the last several days. Cardiology is following to assist with medical management. Ventilator requirements are minimal. Attempt to minimize propofol and fentanyl for sedation. Wean FiO2 for saturations greater than 90%. I would recommend hold ing the patient's Lasix given her tenuous hemodynamic status. Continue empiric antimicrobials, pending finalized culture results. Okay to initiate tube feeds today from my perspective. 2. Septic versus cardiogenic shock While I suspect a cardiac etiology for the patient's vasopressor requirement, I cannot rule out the implications of potential infection or the effects that the patient's sedation regimen is having on her hemodynamic status. Accordingly, I would recommend that we wean her propofol and fentanyl as tolerated. She will remain on empiric antimicrobials for now, pending finalized culture results. Plan to wean Levophed to maintain a mean arterial pressure at or above 65 mmHg. Will defer additional work-up to cardiology pertaining to her drop in ejection fraction from 50 to 15%. 3. History of wide-complex tachycardia/coronary artery disease/ischemic cardiomyopathy Cardiology is following. Continue medical management per recommendations. 4. Hypokalemia/hypomagnesemia Aggressive electrolyte repletion per protocol. 5. Obesity/asthma/allergic rhinitis/hypothyroidism/hypertension/hyperlipidemia Complicates care, management, recovery and prognosis. Continue home medications as indicated. Okay to initiate tube feeds today from my perspective. TIME: 36 minutes of critical care time, independent of procedures, was spent addressing the patient's acute hypoxemic respiratory failure, septic versus cardiogenic shock, wide-complex tachycardia, review of all data and collaboration with the care team. Subjective Subjective The patient was seen and examined at the bedside this morning. Events from the last 24 hours have been reviewed. The patient currently has a low-grade fever, but remains otherwise hemodynamically stable on assist control mode of [facility] anical ventilation with an FiO2 requirement of 30% and the Levophed requirement of 50 mcg/min. She is currently documented to be overall net -1.8 L for the hospitalization. White blood cell count is elevated at 20,000. Chemistry profile was notable for a potassium of 2.6 and creatinine of 1.1. Magnesium was low at 1.5. Objective Data Objective Data The patient's most recent lab work, culture data and imaging studies have all been personally reviewed. Surface echocardiogram demonstrated an ejection fraction of 15% and a pulmonary artery systolic pressure of 30 mmHg. Previously, the patient's echocardiogram on October 10 demonstrated an ejection fraction of 50%. Sputum and blood cultures are pending. Vital Signs: Vital Signs Temp Pulse Resp BP Pulse Ox O2 Del Method FiO2 100.4 F H 56 L 14 119/39 L 96 Mechanical Ventilator 30 10/13/21 00:00 10/13/21 04:32 10/13/21 04:32 10/13/21 03:00 10/13/21 04:32 10/13/21 03:00 10/13/21 04:32 Oxygen Delivery Method Mechanical Ventilator Weight: 176 lb 2.389 oz Body Mass Index (BMI) 31.8 Intake & Output: Intake and Output for Last 24 Hours 10/11/21 10/12/21 10/13/21 23:59 23:59 23:59 Intake Total 1522.11 / 1613.46 328.21 / 328.21 Output Total 3350 / 3550 300 / 300 Balance -1827.89 / -1936.54 28.21 / 28.21 Lab / Micro Data Attestation: I reviewed the patient's lab results. Result Diagrams: 10/13/21 03:05 10/13/21 03:05 Labs: Laboratory Results - last 24 hr 10/12/21 04:50: Lactic Acid 6.0 H* 10/12/21 05:26: D-Dimer Quant (PE/DVT) 1.60 H* 10/12/21 05:26: Magnesium 2.2 10/12/21 05:26: Procalcitonin < 0.04 10/12/21 08:00: Troponin I High Sens 482 H* 10/12/21 09:45: Lactic Acid 1.9 10/12/21 11:05: COVID-19 (JOSE ALFREDO) Not Detected 10/12/21 11:06: POC Glucose 246 H 10/12/21 15:57: POC Glucose 198 H 10/12/21 18:10: MRSA (PCR) Negative 10/12/21 20:37: POC Glucose 226 H 10/12/21 23:20: Troponin I High Sens 3259 H* 10/13/21 00:04: POC Glucose 248 H 10/13/21 03:05: WBC 19.4 H, RBC 4.10 L, Hgb 12.9, Hct 38.1, MCV 92.9 D, MCH 31.5, MCHC 33.9 D, RDW Std Deviation 44.0 H, RDW Coeff of Manas 13.0, Plt Count 344, MPV 9.3, Immature Gran % (Auto) 0.500, Neut % (Auto) 69.3, Lymph % (Auto) 17.9 L, [place] % (Auto) 11.7 H, Eos % (Auto) 0.2, Baso % (Auto) 0.4, Absolute Neuts (auto) 13.4 H, Absolute Lymphs (auto) 3.47, Nucleated RBC % 0, Differential Comment SCANNED, Diff Path Review July10/13/21 03:05: Sodium 139, Potassium 2.6 L*, Chloride 108 H, Carbon Dioxide 22.0, Anion Gap 9, BUN 22 H, Creatinine 1.10 H, Estim Creat Clear Calc 33.34, Est GFR (MDRD) Af Amer 62, Est GFR (MDRD) Non-Af 51 L, BUN/Creatinine Ratio 20.0, Glucose 255 H, Calcium 7.1 L, Total Bilirubin 0.50, AST 40 H, ALT 31, Alkaline Phosphatase 54, Total Protein 5.9 L, Albumin 2.7 L, Globulin 3.2, Albumin/Globulin Ratio 0.8 L 10/13/21 03:05: Phosphorus 2.7, Magnesium 1.5 L Micro: Microbiology 10/12/21 11:05 Mucosa - Nose Respiratory Panel (PCR) - Final 10/12/21 06:00 Urine Catheter - Hernandez Legionella Antigen - Final 10/12/21 06:00 Urine Catheter - Hernandez Streptococcus pneumoniae Antigen (M - Final 10/12/21 05:35 Nasal Secretion SARS-CoV-2 Antigen (Rapid) - Final ABG Data ABG results: ABG 10/12/21 05:59 Specimen Type ART Sample Site L Radial pH 7.29 L Bicarbonate Actual 19.5 L Total CO2 21 Base Excess -7 L O2 Saturation 100 H O2 % 100 ABG pCO2 40.6 ABG pO2 267 H Aureliano Test Positive Respiration Rate 14 O2 Delivery Device ET Tube Vent Mode AC Tidal Volume 450 POC PEEP 5 Radiography Diagnostic Testing: Radiology Impression Chest CTA 10/12/21 05:45 IMPRESSION: Limited study. No evidence of large central pulmonary emboli. Smaller pulmonary emboli not entirely excluded. Findings consistent with pulmonary edema/congestive heart failure. More focal consolidation in the lower lobes possible pneumonia or confluent edema. Bilateral pleural effusions. Electronically Signed: Agnieszka Ulloa MD at 7:49 EDT Reading Location ID and State: [facility] / [place] Tel , Service support , Echocardiogram 10/12/21 09:24 Interpretation Summary Normal LV size. The estimated ejection fraction is 15 %. Mild (1+) tricuspid valve insufficiency. There are regional wall motion abnormalities as specified. Above consistent with takutsobo Compared to previous study, the left ventricular systolic function has worsened.. Contrast injection was performed. Ordering Physician: Mo Rao Referring Physician: Su Thomas Performed By: Esperanza Murphy, ADALBERTO, RVT X-Ray 10/12/21 09:55 IMPRESSION: Successful distal repositioning of NG tube, tip is in the proximal gastric cavity but the sidehole is at the EG junction. Distal repositioning will be helpful. Electronically Signed: Abelardo Perez MD at 11:12 EDT , Chest X-Ray 10/12/21 13:18 IMPRESSION: 1. Persistent multifocal pneumonia, not appreciably changed. 2. Endotracheal tube 2.2 cm from the sal. Consider retracting 2 to 3 cm. 3. Right PICC line tip at the proximal cavoatrial junction. 4. Enteric tube proximal side port at the level of the gastroesophageal junction. Consider advancing 3 to 4 cm. Electronically Signed: Mikey Jensen DO at 15:03 EDT , Physical Exam Const no apparent distress General Appearance: intubated and patient mechanically ventilated Nutritional Appearance: obese HEENT normocephalic and head/scalp atraumatic Mouth: endotracheal tube in place and OG tube in place Eyes PERRL and EOMs intact bilaterally Neck supple General: trachea midline Chest inspection of chest normal Resp normal respiratory effort Auscultation: rales; Negative for rhonchi or wheezes Cardio S1 normal heart sound and S2 normal heart sound Rate: bradycardia Heart Sounds: murmur GI normal to inspection, nondistended, normoactive bowel sounds Extremity no clubbing, cyanosis or edema Skin no rashes or lesions noted Neuro no focal motor deficits Sensorium / Orientation: sedated on vent Charges/Coding Procedures Hospitalists Procedures: 96717 Critial Care 1st Hr
[2021-10-13] MEDS: Amiodarone 360 MG in Dextrose 5% Viaflo Bag 192.8 ML 16.7 MG CONT INF (05:57)
[2021-10-13] MEDS: Budesonide Respules 0.5 MG/2 ML AMPUL.NEB. INHALATION ×2 (06:30→19:43)
--- NOTE | 2021-10-13 07:44 | PCM.PN.HOSP ---
Subjective Subjective Patient was seen and examined today, I briefly talked with critical care about her care today, she remains on the ventilator at this time, her metoprolol had to be stopped due to bradycardia last night. She remains on IV amiodarone at this time. Patient is somewhat alert, her sedating agents have been titrated downward, she does not appear to be in any distress. Patient's IV Lasix was stopped by critical care for now due to low blood pressures. Patient's echocardiogram that was done yesterday showed evidence of global impairment, her EF was approximately 15%-I talked with cardiology and they felt that she might have a Takotsubo's cardiomyopathy. Objective Data Objective Data Vital Signs: Vital Signs Temp Pulse Resp BP Pulse Ox O2 Del Method FiO2 99.8 F H 48 L 14 139/58 H 98 Mechanical Ventilator 30 10/13/21 04:00 10/13/21 07:28 10/13/21 07:00 10/13/21 07:15 10/13/21 07:00 10/13/21 07:00 10/13/21 07:00 Oxygen Delivery Method Mechanical Ventilator Weight: 79.9 kg Body Mass Index (BMI) 31.8 Intake & Output: Intake and Output for Last 24 Hours 10/11/21 10/12/21 10/13/21 23:59 23:59 23:59 Intake Total 1522.11 / 1613.46 959.99 / 959.99 Output Total 3350 / 3550 300 / 300 Balance -1827.89 / -1936.54 659.99 / 659.99 Lab / Micro Data Result Diagrams: 10/13/21 03:05 10/13/21 03:05 Labs: Laboratory Results - last 24 hr 10/12/21 08:00: Troponin I High Sens 482 H* 10/12/21 09:45: Lactic Acid 1.9 10/12/21 11:05: COVID-19 (JOSE ALFREDO) Not Detected 10/12/21 11:06: POC Glucose 246 H 10/12/21 15:57: POC Glucose 198 H 10/12/21 18:10: MRSA (PCR) Negative 10/12/21 20:37: POC Glucose 226 H 10/12/21 23:20: Troponin I High Sens 3259 H* 10/13/21 00:04: POC Glucose 248 H 10/13/21 03:05: WBC 19.4 H, RBC 4.10 L, Hgb 12.9, Hct 38.1, MCV 92.9 D, MCH 31.5, MCHC 33.9 D, RDW Std Deviation 44.0 H, RDW Coeff of Manas 13.0, Plt Count 344, MPV 9.3, Immature Gran % (Auto) 0.500, Neut % (Auto) 69.3, Lymph % (Auto) 17.9 L, [place] % (Auto) 11.7 H, Eos % (Auto) 0.2, Baso % (Auto) 0.4, Absolute Neuts (auto) 13.4 H, Absolute Lymphs (auto) 3.47, Nucleated RBC % 0, Differential Comment SCANNED, Diff Path Review July10/13/21 03:05: Sodium 139, Potassium 2.6 L*, Chloride 108 H, Carbon Dioxide 22.0, Anion Gap 9, BUN 22 H, Creatinine 1.10 H, Estim Creat Clear Calc 33.34, Est GFR (MDRD) Af Amer 62, Est GFR (MDRD) Non-Af 51 L, BUN/Creatinine Ratio 20.0, Glucose 255 H, Calcium 7.1 L, Total Bilirubin 0.50, AST 40 H, ALT 31, Alkaline Phosphatase 54, Total Protein 5.9 L, Albumin 2.7 L, Globulin 3.2, Albumin/Globulin Ratio 0.8 L 10/13/21 03:05: Phosphorus 2.7, Magnesium 1.5 L Micro: Microbiology 10/12/21 11:05 Mucosa - Nose Respiratory Panel (PCR) - Final 10/12/21 06:00 Urine Catheter - Hernandez Legionella Antigen - Final 10/12/21 06:00 Urine Catheter - Hernandez Streptococcus pneumoniae Antigen (M - Final 10/12/21 05:35 Nasal Secretion SARS-CoV-2 Antigen (Rapid) - Final Radiography Diagnostic Testing: Radiology Impression Chest CTA 10/12/21 05:45 IMPRESSION: Limited study. No evidence of large central pulmonary emboli. Smaller pulmonary emboli not entirely excluded. Findings consistent with pulmonary edema/congestive heart failure. More focal consolidation in the lower lobes possible pneumonia or confluent edema. Bilateral pleural effusions. Electronically Signed: Agnieszka Ulloa MD at 7:49 EDT Reading Location ID and State: [facility] / [place] Tel , Service support , Echocardiogram 10/12/21 09:24 Interpretation Summary Normal LV size. The estimated ejection fraction is 15 %. Mild (1+) tricuspid valve insufficiency. There are regional wall motion abnormalities as specified. Above consistent with takutsobo Compared to previous study, the left ventricular systolic function has worsened.. Contrast injection was performed. Ordering Physician: Mo Rao Referring Physician: Su Thomas Performed By: Esperanza Murphy, ADALBERTO, RVT X-Ray 10/12/21 09:55 IMPRESSION: Successful distal repositioning of NG tube, tip is in the proximal gastric cavity but the sidehole is at the EG junction. Distal repositioning will be helpful. Electronically Signed: Abelardo Perez MD at 11:12 EDT , Chest X-Ray 10/12/21 13:18 IMPRESSION: 1. Persistent multifocal pneumonia, not appreciably changed. 2. Endotracheal tube 2.2 cm from the sal. Consider retracting 2 to 3 cm. 3. Right PICC line tip at the proximal cavoatrial junction. 4. Enteric tube proximal side port at the level of the gastroesophageal junction. Consider advancing 3 to 4 cm. Electronically Signed: Mikey Jensen DO at 15:03 EDT , Physical Exam Const alert and no apparent distress Constitutional Narrative: Patient is somewhat alert, she opens her eyes and is looking around, I did not ask her to perform commands. She remains on the ventilator at this time. General Appearance: cooperative, well kempt and well developed Orientation / Consciousness: awake HEENT normocephalic and moist oral mucous membranes Eyes PERRL, EOMs intact bilaterally and conjunctivae normal Neck supple, no JVD and thyroid normal General: trachea midline Resp normal respiratory effort, no retractions and no use of accessory muscles Resp Narrative: Breath sounds are diminished bilaterally Auscultation: Negative for rales, rhonchi or wheezes Cardio regular rate, regular rhythm, S1 normal heart sound, S2 normal heart sound, no murmurs, no rub and no gallops GI normal to inspection, nondistended, normoactive bowel sounds, soft to palpation, non-tender and non-distended Extremity no clubbing, cyanosis or edema Skin no rashes or lesions noted General Skin Exam: no breakdown Neuro CN's II-XII intact bilaterally Sensorium / Orientation: awake Psych Psych Narrative: Patient is under light sedation on the ventilator Assessment & Plan Assessment/Plan (1) Pulmonary edema: PLAN: Plan 1. Acute hypoxic respiratory failure secondary to flash pulmonary edema-ventilator is being managed by critical care at this time, patient is on 30% oxygen currently. Patient is on empiric antibiotic coverage at this time #2 acute non-STEMI type II-cardiology participating her care, patient was taken off her beta-marty due to bradycardia last night, patient will remain on Plavix and aspirin #3 wide-complex tachycardia-VT, by history-patient is now on amiodarone #4 coronary artery disease-patient is status post insertion of 2 drug-eluting stents earlier in the week, she will remain on Plavix and aspirin #4 hypokalemia-patient will receive IV potassium supplementation, labs will be repeated #5 hypomagnesemia-patient will be given IV magnesium, labs will be rechecked #6 cardiomyopathy-etiology unclear at this point, possible Takotsubo's #7 hyperlipidemia-patient will be placed on a statin #8 hypothyroidism-patient is on Synthroid #9 type 2 diabetes-blood sugars will be monitored Charges/Coding Visit Charges Inpatient E&M: 83359 Subs Hosp L3
[2021-10-13] MEDS: Enoxaparin 40 MG/0.4 ML Syringe SC (08:10)
[2021-10-13] MEDS: Chlorhexidine 15 ML PO ×2 (08:11→20:58)
[2021-10-13] MEDS: Clopidogrel Bisulfate 75 MG Tablet NG (08:12)
[2021-10-13] MEDS: Aspirin 81 MG TAB.CHEW NG (08:12)
[2021-10-13 08:17] LABS: Anion Gap 10 (5-15); BUN 21 mg/dL (7-18); BUN/Creat Ratio 16.8 RATIO (10-20); Calcium,Total 7.5 mg/dL (8.5-10.1); Chloride 108 mmol/L (98-107); Creatinine, Serum 1.25 mg/dL (0.55-1.02); EST Glomerular Filtration Rate 44 mL/min (>60); Est Glom Filt Rate - Afr Amer 53 mL/min (>60); Estimated Creatinine Clearance 29.34 ml/min; Glucose 252 mg/dL (74-106); Potassium 3.4 mmol/L (3.5-5.1); Sodium Level 140 mmol/L (136-145)
[2021-10-13] MEDS: Famotidine 200 MG/20 ML MDV 20 MG in 0.9% Normal Saline (Pres. free 8 ML 300 MG IV ×2 (08:18→21:57)
[2021-10-13] MEDS: Losartan Potassium 50 MG Tablet PO (08:25)
--- NOTE | 2021-10-13 09:18 | PN.CARD_ITS ---
Subjective Subjective Patient seen status quo ante. Stable intubated Objective Data Vital Signs: Vital Signs Temp Pulse Resp BP Pulse Ox O2 Del Method FiO2 99.8 F H 54 L 14 139/58 H 96 Mechanical Ventilator 25 10/13/21 04:00 10/13/21 09:04 10/13/21 09:04 10/13/21 07:15 10/13/21 09:04 10/13/21 07:00 10/13/21 09:04 Oxygen Delivery Method Mechanical Ventilator Weight: 176 lb 2.389 oz Body Mass Index (BMI) 31.8 Intake & Output: Intake and Output for Last 24 Hours 10/11/21 10/12/21 10/13/21 23:59 23:59 23:59 Intake Total 1522.11 / 1613.46 959.99 / 959.99 Output Total 3350 / 3550 300 / 300 Balance -1827.89 / -1936.54 659.99 / 659.99 Lab / Micro Data Result Diagrams: 10/13/21 03:05 10/13/21 08:00 Labs: Laboratory Results - last 24 hr 10/12/21 09:45: Lactic Acid 1.9 10/12/21 11:05: COVID-19 (JOSE ALFREDO) Not Detected 10/12/21 11:06: POC Glucose 246 H 10/12/21 15:57: POC Glucose 198 H 10/12/21 18:10: MRSA (PCR) Negative 10/12/21 20:37: POC Glucose 226 H 10/12/21 23:20: Troponin I High Sens 3259 H* 10/13/21 00:04: POC Glucose 248 H 10/13/21 03:05: WBC 19.4 H, RBC 4.10 L, Hgb 12.9, Hct 38.1, MCV 92.9 D, MCH 31.5, MCHC 33.9 D, RDW Std Deviation 44.0 H, RDW Coeff of Manas 13.0, Plt Count 344, MPV 9.3, Immature Gran % (Auto) 0.500, Neut % (Auto) 69.3, Lymph % (Auto) 17.9 L, [place] % (Auto) 11.7 H, Eos % (Auto) 0.2, Baso % (Auto) 0.4, Absolute Neuts (auto) 13.4 H, Absolute Lymphs (auto) 3.47, Nucleated RBC % 0, Differential Comment SCANNED, Diff Path Review July foll 10/13/21 03:05: Sodium 139, Potassium 2.6 L*, Chloride 108 H, Carbon Dioxide 22.0, Anion Gap 9, BUN 22 H, Creatinine 1.10 H, Estim Creat Clear Calc 33.34, Est GFR (MDRD) Af Amer 62, Est GFR (MDRD) Non-Af 51 L, BUN/Creatinine Ratio 20.0, Glucose 255 H, Calcium 7.1 L, Total Bilirubin 0.50, AST 40 H, ALT 31, Alkaline Phosphatase 54, Total Protein 5.9 L, Albumin 2.7 L, Globulin 3.2, Albumin/Globulin Ratio 0.8 L 10/13/21 03:05: Phosphorus 2.7, Magnesium 1.5 L 10/13/21 08:00: Sodium 140, Potassium 3.4 L, Chloride 108 H, Carbon Dioxide 22.0, Anion Gap 10, BUN 21 H, Creatinine 1.25 H, Estim Creat Clear Calc 29.34, Est GFR (MDRD) Af Amer 53 L, Est GFR (MDRD) Non-Af 44 L, BUN/Creatinine Ratio 16.8, Glucose 252 H, Calcium 7.5 L Micro: Microbiology 10/12/21 11:05 Mucosa - Nose Respiratory Panel (PCR) - Final 10/12/21 06:00 Urine Catheter - Hernandez Legionella Antigen - Final 10/12/21 06:00 Urine Catheter - Hernandez Streptococcus pneumoniae Antigen (M - Final 10/12/21 05:35 Nasal Secretion SARS-CoV-2 Antigen (Rapid) - Final Cardiology Labs/Tests 10/12/21 09:45: Lactic Acid 1.9 10/13/21 03:05: WBC 19.4 H, RBC 4.10 L, Hgb 12.9, Hct 38.1, MCV 92.9 D, MCH 31.5, MCHC 33.9 D, Plt Count 344, MPV 9.3, Immature Gran % (Auto) 0.500, Neut % (Auto) 69.3, Lymph % (Auto) 17.9 L, [place] % (Auto) 11.7 H, Eos % (Auto) 0.2, Baso % (Auto) 0.4, Absolute Neuts (auto) 13.4 H, Nucleated RBC % 0 10/13/21 03:05: Sodium 139, Potassium 2.6 L*, Chloride 108 H, Carbon Dioxide 22.0, Anion Gap 9, BUN 22 H, Creatinine 1.10 H, Est GFR (MDRD) Af Amer 62, Est GFR (MDRD) Non-Af 51 L, BUN/Creatinine Ratio 20.0, Glucose 255 H, Calcium 7.1 L, Total Bilirubin 0.50 10/13/21 03:05: Phosphorus 2.7, Magnesium 1.5 L 10/13/21 08:00: Sodium 140, Potassium 3.4 L, Chloride 108 H, Carbon Dioxide 22.0, Anion Gap 10, BUN 21 H, Creatinine 1.25 H, Est GFR (MDRD) Af Amer 53 L, Est GFR (MDRD) Non-Af 44 L, BUN/Creatinine Ratio 16.8, Glucose 252 H, Calcium 7.5 L Rhythm: EKG: ECHO: Stress Test: Cardiac Cath: PCI: CT Surgery: Holter monitor: EPS: PPM: CXR: Chest CT Scan: Radiography Diagnostic Testing: Radiology Impression Echocardiogram 10/12/21 09:24 Interpretation Summary Normal LV size. The estimated ejection fraction is 15 %. Mild (1+) tricuspid valve insufficiency. There are regional wall motion abnormalities as specified. Above consistent with takutsobo Compared to previous study, the left ventricular systolic function has worsened.. Contrast injection was performed. Ordering Physician: Mo Rao Referring Physician: Su Thomas Performed By: Esperanza Murphy, JARRELLCS, RVT X-Ray 10/12/21 09:55 IMPRESSION: Successful distal repositioning of NG tube, tip is in the proximal gastric cavity but the sidehole is at the EG junction. Distal repositioning will be helpful. Electronically Signed: Abelardo Perez MD at 11:12 EDT , Chest X-Ray 10/12/21 13:18 IMPRESSION: 1. Persistent multifocal pneumonia, not appreciably changed. 2. Endotracheal tube 2.2 cm from the sal. Consider retracting 2 to 3 cm. 3. Right PICC line tip at the proximal cavoatrial junction. 4. Enteric tube proximal side port at the level of the gastroesophageal junction. Consider advancing 3 to 4 cm. Electronically Signed: Mikey Jensen DO at 15:03 EDT , Physical Exam Const alert and no apparent distress Constitutional Narrative: Patient is somewhat alert, she opens her eyes and is looking around, She remains on the ventilator at this time. General Appearance: cooperative, well kempt and well developed Orientation / Consciousness: awake HEENT normocephalic and moist oral mucous membranes Eyes PERRL, EOMs intact bilaterally and conjunctivae normal Neck supple, no JVD and thyroid normal General: trachea midline Resp normal respiratory effort, no retractions and no use of accessory muscles Resp Narrative: Breath sounds are diminished bilaterally Auscultation: Negative for rales, rhonchi or wheezes Cardio regular rate, regular rhythm, S1 normal heart sound, S2 normal heart sound, no murmurs, no rub and no gallops GI normal to inspection, nondistended, normoactive bowel sounds, soft to palpation, non-tender and non-distended Extremity no clubbing, cyanosis or edema Skin no rashes or lesions noted General Skin Exam: no breakdown Neuro CN's II-XII intact bilaterally Sensorium / Orientation: awake Psych Psych Narrative: Patient is under light sedation on the ventilator Assessment & Plan Assessment/Plan (1) Pulmonary edema: PLAN: Patient presented with acute pulmonary edema. Appears to be much better now and is currently on light sedation. The above was likely secondary to Takotsubo cardiomyopathy. (2) History of coronary artery stent placement: PLAN: Patient has known coronary artery disease status post recent angioplasty and stenting. Doubt the above episode was secondary to acute stent thrombosis. (3) Ischemic cardiomyopathy: PLAN: Patient has a history of ischemic cardiomyopathy. (4) Essential hypertension: PLAN: Her blood pressure appears to be stable at this time on the current medical therapy. We will adjust antihypertensive medications appropriately. (5) Takotsubo cardiomyopathy: PLAN: Patient appears to have the above with significant reduction in left ventricular ejection fraction from 50% to approximately 15%. This will need to be repeated to assess the improvement over time. We will try to add back the beta-marty and consider an ARB as well as a diuretic as time progresses. Hopefully patient can be extubated in a.m. We will follow with Dr. Joseph Stahl MD of the heart group. Thank you for allowing me to participate in the care of your patient. Please don't hesitate to call if any issues arise.
[2021-10-13] MEDS: Potassium Chloride 10mEq/100mL 10 MEQ/100 ML IV.SOLN. 100 MEQ IV BOLUS ×3 (09:23→12:02)
[2021-10-13 11:25] LABS: Bedside Glucose 230 mg/dL (74-106)
[2021-10-13] MEDS: Vital AF 1.2 Cal Liquid 1,000 ML 20 ML GT (12:01)
[2021-10-13 18:10] LABS: Bedside Glucose 217 mg/dL (74-106)
[2021-10-13] MEDS: Amiodarone 200 MG Tablet NG (20:57)
[2021-10-13] MEDS: Pravastatin 40 MG Tablet NG (20:58)
[2021-10-13] MEDS: Atorvastatin Calcium 40 MG Tablet NG (20:59)
[2021-10-13] MEDS: 0.9% Saline Lock 10 ML Syringe IV (21:58)
[2021-10-14] VITALS (43 sets, daily range): BP systolic 100–145; BP diastolic 39–88; PULSE 50–96; RESP 12–27; TEMP 37.3–37.8; O2SAT 93–98
[2021-10-14] MEDS: Insulin Lispro 100 UNIT/ML INSULN.PEN SC ×4 (01:03→18:16)
[2021-10-14] MEDS: Propofol 10MG/Ml 1,000 MG/100 ML Bottle 5.1 MG CONT INF (02:51)
[2021-10-14 04:52] LABS: Absolute Lymphocyte Count 2.46 X10^3/uL (0.83-4.51); Absolute Neutrophil Count 8.9 X10^3/uL (2.0-7.7); Basophil# 0.09 X10^3/uL; Basophil% 0.7 % (0-1); Eosinophil# 0.35 X10^3/uL; Eosinophils% 2.6 % (0-5); Hematocrit 34.7 % (37-47); Hemoglobin 11.5 g/dL (12.0-15.0); Lymphocyte # 2.46 X10^3/ul (0.83-4.51); Lymphocyte % 18.6 % (19-41); Mean Corp Hgb Conc 33.1 g/dL (32-36); Mean Corpuscular Hgb 31.3 pg (27.0-32.0); Mean Corpuscular Volume 94.6 fL (81-99); Mean Platelet Vol. 9.5 fl (6.2-12.0); Monocyte# 1.41 X10^3/uL; Monocyte% 10.7 % (0-10); NRBC Flagged by Analyzer 0 % (0-5); Neutrophil # 8.85 X10^3/uL (2.7-7.7); Neutrophil % 66.9 % (47-70); Platelet Count 279 K/mm3 (150-450); RBC Distribution Width CV 13.3 % (11.6-14.6); RBC Distribution Width SD 46.4 fl (35.1-43.9); Red Blood Count 3.67 M/mm3 (4.2-5.4); White Blood Count 13.2 K/mm3 (4.4-11.0)
[2021-10-14] MEDS: Levothyroxine 50 MCG Tablet NG (05:04)
[2021-10-14] MEDS: Levothyroxine 100 MCG Tablet NG (05:04)
[2021-10-14 05:19] LABS: Anion Gap 8 (5-15); BUN 16 mg/dL (7-18); BUN/Creat Ratio 15.7 RATIO (10-20); Calcium,Total 7.4 mg/dL (8.5-10.1); Chloride 109 mmol/L (98-107); Creatinine, Serum 1.02 mg/dL (0.55-1.02); EST Glomerular Filtration Rate 56 mL/min (>60); Est Glom Filt Rate - Afr Amer 67 mL/min (>60); Estimated Creatinine Clearance 35.95 ml/min; Glucose 250 mg/dL (74-106); Potassium 3.1 mmol/L (3.5-5.1); Sodium Level 140 mmol/L (136-145)
[2021-10-14 05:44] LABS: Magnesium 2.3 mg/dL (1.6-2.6)
[2021-10-14 06:11] LABS: Allen Test Positive; Base Excess -4 mmol/L (-2 to +2); Bicarbonate 20.7 mmol/L (22-26); Blood Gas Specimen Type ART; FI02 25; Mode CPAP/PS; O2 Delivery Device Adult Vent; PEEP 5; PO2 81 mmHG (75-100); PS 5; SITE L Radial; SO2 96 % (95-99); Total Carbon Dioxide 22 mmol/L; pCO2 32.6 mmHg (35-45); pH 7.41 (7.35-7.45)
[2021-10-14] MEDS: Potassium Chloride Oral Soln 20 MEQ/15 ML UDC 40 MEQ PO (06:20)
[2021-10-14] MEDS: Potassium Chloride 20mEq/100mL 20 MEQ/100 ML IV.SOLN. 100 MEQ IV BOLUS ×2 (06:22→08:02)
--- NOTE | 2021-10-14 07:03 | PN.CC_ITS ---
Assessment & Plan Assessment/Plan (1) Respiratory failure: (2) Hypoxemia: PLAN: Plan RECOMMENDATIONS: 1. Proceed with trial of extubation. Wean FiO2 for saturations greater than 90%. 2. Hold on fluid boluses for hypotension 3. Discontinue antibiotics given negative cultures 4. Aggressive potassium and magnesium repletion. 5. Bedside swallow evaluation with initiation of diet if possible 6. Place hearing aids to help avoid delirium 7. Continue appropriate ICU prophylaxis. IMPRESSIONS: 1. Acute hypoxemic respiratory failure Clinical suspicion for flash pulmonary edema. Antibiotics will be discontinued given negative cultures. CTA chest was negative for PE. The patient's echocardiogram did reveal a drop in her ejection fraction from 50% to 15% over the last several days. Cardiology is following to assist with medical management. Proceed with trial of extubation. Lasix given improved blood pre ssure. Bedside swallow evaluation later this morning 2. Probable cardiogenic shock Clinical suspicion for cardiogenic shock given negative cultures and improvement following discontinuation of propofol. We will continue cardiac optimization with Lasix. Patient does have blood pressure for beta-marty if requested by cardiology. Will defer additional work-up to cardiology pertaining to her drop in ejection fraction from 50 to 15%. 3. History of wide-complex tachycardia/coronary artery disease/ischemic cardiomyopathy Cardiology is following. Continue medical management per recommendations. Aggressive electrolyte repletion will be ordered 4. Hypokalemia/hypomagnesemia Aggressive electrolyte repletion per protocol. 5. Obesity/asthma/allergic rhinitis/hypothyroidism/hypertensio n/hyperlipidemia Complicates care, management, recovery and prognosis. Continue home medications as indicated. Okay to initiate tube feeds today from my perspective. TIME: 33 minutes of critical care time, independent of procedures, was spent addressing the patient's acute hypoxemic respiratory failure, septic versus cardiogenic shock, wide-complex tachycardia, review of all data and collaboration with the care team. Subjective Subjective Patient did okay overnight. No acute issues were reported. Patient was able to be taken off of Levophed following spontaneous awakening trial. Patient was able to tolerate a spontaneous breathing trial this morning. Patient was seen on the trial and was breathing comfortably. Patient denied any pain. Patient is very hard of hearing. Patient reportedly had tolerated tube feeds prior to spontaneous awakening trial. Objective Data Objective Data Vital Signs: Vital Signs Temp Pulse Resp BP Pulse Ox O2 Del Method FiO2 37.4 C H 87 15 145/59 H 95 Mechanical Ventilator 25 07/18/ 04:00 10/14/21 06:30 10/14/21 06:00 10/14/21 06:30 10/14/21 06:00 10/14/21 06:00 10/14/21 06:00 Oxygen Delivery Method Mechanical Ventilator Weight: 81.8 kg Body Mass Index (BMI) 31.8 Intake & Output: Intake and Output for Last 24 Hours 10/12/21 10/13/21 10/14/21 23:59 23:59 23:59 Intake Total 1522.11 / 1613.46 3196.59 / 3224.79 392.94 / 392.94 Output Total 3350 / 3550 1100 / 1150 50 / 50 Balance -1827.89 / -1936.54 2096.59 / 2074.79 342.94 / 342.94 Lab / Micro Data Attestation: I reviewed the patient's lab results. Result Diagrams: 10/14/21 04:30 10/14/21 04:30 Labs: Laboratory Results - last 24 hr 10/13/21 08:00: Sodium 140, Potassium 3.4 L, Chloride 108 H, Carbon Dioxide 22.0, Anion Gap 10, BUN 21 H, Creatinine 1.25 H, Estim Creat Clear Calc 29.34, Est GFR (MDRD) Af Amer 53 L, Est GFR (MDRD) Non-Af 44 L, BUN/Creatinine Ratio 16.8, Glucose 252 H, Calcium 7.5 L 10/13/21 10:59: POC Glucose 230 H 10/13/21 17:38: POC Glucose 217 H 10/14/21 04:30: Sodium 140, Potassium 3.1 L, Chloride 109 H, Carbon Dioxide 23.0, Anion Gap 8, BUN 16, Creatinine 1.02, Estim Creat Clear Calc 35.95, Est GFR (MDRD) Af Amer 67, Est GFR (MDRD) Non-Af 56 L, BUN/Creatinine Ratio 15.7, Glucose 250 H, Calcium 7.4 L 10/14/21 04:30: WBC 13.2 H, RBC 3.67 L, Hgb 11.5 L, Hct 34.7 L, MCV 94.6, MCH 31.3, MCHC 33.1, RDW Std Deviation 46.4 H, RDW Coeff of Mansa 13.3, Plt Count 279, MPV 9.5, Immature Gran % (Auto) 0.500, Neut % (Auto) 66.9, Lymph % (Auto) 18.6 L , [place] % (Auto) 10.7 H, Eos % (Auto) 2.6, Baso % (Auto) 0.7, Absolute Neuts (auto) 8.9 H, Absolute Lymphs (auto) 2.46, Nucleated RBC % 0 10/14/21 04:30: Magnesium 2.3 Micro: Microbiology 10/12/21 11:05 Sputum, Induced/Lukens Gram Stain - Final 10/12/21 11:05 Sputum, Induced/Lukens Respiratory Culture - Preliminary Appears to be normal respiratory lindsey. Further studies to follow. 10/12/21 11:05 Mucosa - Nose Respiratory Panel (PCR) - Final 10/12/21 06:00 Urine Catheter - Hernandez Legionella Antigen - Final 10/12/21 06:00 Urine Catheter - Hernandez Streptococcus pneumoniae Antigen (M - Final 10/12/21 05:35 Nasal Secretion SARS-CoV-2 Antigen (Rapid) - Final ABG Data ABG results: ABG 10/14/21 06:06 Specimen Type ART Sample Site L Radial pH 7.41 Bicarbonate Actual 20.7 L Total CO2 22 Base Excess -4 L O2 Saturation 96 O2 % 25 ABG pCO2 32.6 L ABG pO2 81 Aureliano Test Positive O2 Delivery Device Adult Vent Vent Mode CPAP/PS POC PEEP 5 POC Pressure Suppt 5 Attestation: I personally reviewed and interpreted this ABG as follows: Interpretation: Compensated metabolic acidosis with a slightly elevated AA gradient. Physical Exam Const no apparent distress Constitutional Narrative: No distress on spontaneous breathing trial General Appearance: intubated and patient mechanically ventilated Nutritional Appearance: obese HEENT normocephalic and head/scalp atraumatic General Ear: hearing grossly impaired diffuse (No hearing aids in place) Eyes PERRL and EOMs intact bilaterally Neck supple General: trachea midline Chest inspection of chest normal Resp normal respiratory effort Auscultation: diminished lung sounds; Negative for rales, rhonchi or wheezes Cardio regular rate, regular rhythm, S1 normal heart sound and S2 normal heart sound Rate: bradycardia Heart Sounds: murmur systolic III/ harsh mid left sternal border GI normal to inspection, nondistended, normoactive bowel sounds Extremity General Extremity: edema; Negative for clubbing Skin no rashes or lesions noted Neuro CN's II-XII intact bilaterally, moves all extremities and no focal motor deficits Psych cooperative Mood & Affect: flat affect Charges/Coding Procedures Hospitalists Procedures: 99447 Critial Care 1st Hr
[2021-10-14] MEDS: 0.9% Saline Lock 10 ML Syringe IV (07:22)
[2021-10-14] MEDS: Furosemide 40 MG/4 ML Vial IV (07:22)
[2021-10-14] MEDS: Budesonide Respules 0.5 MG/2 ML AMPUL.NEB. INHALATION ×2 (07:33→19:46)
--- NOTE | 2021-10-14 07:55 | EKG12_ITS ---
Test Reason : AM EKG Blood Pressure : / mmHG Vent. Rate : 059 BPM Atrial Rate : 059 BPM P-R Int : 168 ms QRS Dur : 104 ms QT Int : 504 ms P-R-T Axes : 053 067 142 degrees QTc Int : [address] & T wave abnormality, consider anterolateral ischemia Prolonged QT Abnormal ECG When compared with ECG of 14-OCT-2021 07:50, MANUAL COMPARISON REQUIRED, DATA IS UNCONFIRMED Confirmed by JAD PHILLIP, ROMULO ([id number]), photographic editor PRAVIN GOODEN ([id number]) on 10/22/2021 11:21:08 AM Referred By: VANESSA Confirmed By:ROMULO STREET MD
--- NOTE | 2021-10-14 08:02 | PN.CARD_ITS ---
Subjective Subjective The patient was just recently extubated this morning. She appears to be awake at this time. She denies any ongoing chest discomfort. She denies any recurrent acute shortness of breath/dyspnea. Objective Data Vital Signs: Vital Signs Temp Pulse Resp BP Pulse Ox O2 Del Method O2 Flow Rate 99.3 F H 93 19 H 127/55 H 97 Nasal Cannula 2 10/14/21 04:00 10/14/21 07:36 10/14/21 07:36 10/14/21 07:00 10/14/21 07:36 10/14/21 07:36 10/14/21 07:36 FiO2 25 10/14/21 06:00 Oxygen Flow Rate (L/min) 2 Oxygen Delivery Method Nasal Cannula Weight: 180 lb 5.41 oz Body Mass Index (BMI) 31.8 Intake & Output: Intake and Output for Last 24 Hours 10/12/21 10/13/21 10/14/21 23:59 23:59 23:59 Intake Total 1522.11 / 1613.46 3196.59 / 3224.79 392.94 / 392.94 Output Total 3350 / 3550 1100 / 1150 50 / 50 Balance -1827.89 / -1936.54 2096.59 / 2074.79 342.94 / 342.94 Lab / Micro Data Result Diagrams: 10/14/21 04:30 10/14/21 04:30 Labs: Laboratory Results - last 24 hr 10/13/21 08:00: Sodium 140, Potassium 3.4 L, Chloride 108 H, Carbon Dioxide 22.0, Anion Gap 10, BUN 21 H, Creatinine 1.25 H, Estim Creat Clear Calc 29.34, Est GFR (MDRD) Af Amer 53 L, Est GFR (MDRD) Non-Af 44 L, BUN/Creatinine Ratio 16.8, Glucose 252 H, Calcium 7.5 L 10/13/21 10:59: POC Glucose 230 H 10/13/21 17:38: POC Glucose 217 H 10/14/21 04:30: Sodium 140, Potassium 3.1 L, Chloride 109 H, Carbon Dioxide 23.0, Anion Gap 8, BUN 16, Creatinine 1.02, Estim Creat Clear Calc 35.95, Est GFR (MDRD) Af Amer 67, Est GFR (MDRD) Non-Af 56 L, BUN/Creatinine Ratio 15.7, Glucose 250 H, Calcium 7.4 L 10/14/21 04:30: WBC 13.2 H, RBC 3.67 L, Hgb 11.5 L, Hct 34.7 L, MCV 94.6, MCH 31.3, MCHC 33.1, RDW Std Deviation 46.4 H, RDW Coeff of Manas 13.3, Plt Count 279, MPV 9.5, Immature Gran % (Auto) 0.500, Neut % (Auto) 66.9, Lymph % (Auto) 18.6 L , [place] % (Auto) 10.7 H, Eos % (Auto) 2.6, Baso % (Auto) 0.7, Absolute Neuts (auto) 8.9 H, Absolute Lymphs (auto) 2.46, Nucleated RBC % 0 10/14/21 04:30: Magnesium 2.3 Micro: Microbiology 10/12/21 04:50 Blood Culture (Wb) - Femoral Artery Blood Culture - Preliminary No growth in 48 hours. 10/12/21 11:05 Sputum, Induced/Lukens Gram Stain - Final 10/12/21 11:05 Sputum, Induced/Lukens Respiratory Culture - Preliminary Appears to be normal respiratory lindsey. Further studies to follow. ABG Data ABG results: ABG 10/14/21 06:06 Specimen Type ART Sample Site L Radial pH 7.41 Bicarbonate Actual 20.7 L Total CO2 22 Base Excess -4 L O2 Saturation 96 O2 % 25 ABG pCO2 32.6 L ABG pO2 81 Aureliano Test Positive O2 Delivery Device Adult Vent Vent Mode CPAP/PS POC PEEP 5 POC Pressure Suppt 5 Cardiology Labs/Tests 10/13/21 08:00: Sodium 140, Potassium 3.4 L, Chloride 108 H, Carbon Dioxide 22.0, Anion Gap 10, BUN 21 H, Creatinine 1.25 H, Est GFR (MDRD) Af Amer 53 L, Est GFR (MDRD) Non-Af 44 L, BUN/Creatinine Ratio 16.8, Glucose 252 H, Calcium 7.5 L 10/14/21 04:30: Sodium 140, Potassium 3.1 L, Chloride 109 H, Carbon Dioxide 23.0, Anion Gap 8, BUN 16, Creatinine 1.02, Est GFR (MDRD) Af Amer 67, Est GFR (MDRD) Non-Af 56 L, BUN/Creatinine Ratio 15.7, Glucose 250 H, Calcium 7.4 L 10/14/21 04:30: WBC 13.2 H, RBC 3.67 L, Hgb 11.5 L, Hct 34.7 L, MCV 94.6, MCH 31.3, MCHC 33.1, Plt Count 279, MPV 9.5, Immature Gran % (Auto) 0.500, Neut % (Auto) 66.9, Lymph % (Auto) 18.6 L, [place] % (Auto) 10.7 H, Eos % (Auto) 2.6, Baso % (Auto) 0.7, Absolute Neuts (auto) 8.9 H, Nucleated RBC % 0 10/14/21 04:30: Magnesium 2.3 10/14/21 06:06: pH 7.41, Bicarbonate Actual 20.7 L, Base Excess -4 L, O2 Saturation 96, ABG pCO2 32.6 L, ABG pO2 81, Aureliano Test Positive Rhythm: Sinus rhythm EKG: Sinus rhythm; poor R wave progression; T wave abnormality: Consider myocardial ischemia: Anterior lateral ECHO: 10-12-2021 Interpretation Summary Normal LV size. The estimated ejection fraction is 15 %. Mild (1+) tricuspid valve insufficiency. There are regional wall motion abnormalities as specified. Above consistent with takutsobo Compared to previous study, the left ventricular systolic function has worsened.. Contrast injection was performed. ? Cardiac Cath: 10-10-2021 CONCLUSIONS Elevated Left Ventricular End Diastolic Pressure Segmented LV systolic dysfunction- Mild LVEF: by LV gram 45 % [place] Multivessel CAD RECOMMENDATIONS Risk factor modification Medical therapy Staged for FFR Referred for immediate PCI Case discussed / reviewed with Dr. Marsh of Interventional Cardiology DESCRIPTION OF? PROCEDURE The patient arrived to the procedure lab. The risks and benefits of the procedure as well as a full description of our services here and current unavailability of surgical backup were fully explained to the patient and/or their significant other prior to the catheterization. The Timeout was completed, verifying the correct patient and procedure. The patient's procedural site was prepped and draped in the usual fashion. Local anesthetic was given subcutaneous ly to right radial region with Lidocaine 2%. Using a modified Seldinger technique, arterial access was obtained via the right radial artery, a 6Fr sheath was inserted.? Left Coronary Artery selective angiography was performed in multiple views using a 5 Fr. 4.0 Wood catheter. Right Coronary Artery selective angiography was then performed in multiple views using a 5 Fr. 4.0 Wood catheter. Left Ventriculography was performed in CAMARENA projection using a 5 Fr. Pigtail catheter. LV to AO pullback pressures were then recorded.The arterial sheath was pulled and a TR Band was applied for hemostasis CORONARY ANGIOGRAPHY DOMINANCE:? Right Dominant LEFT HEART ASSESSMENT Left Ventricular Ejection Fraction: by LV Gram 45 % Inferior Basal Akinesis Elevated Left Ventricular End Diastolic Pressure LVEDP: 28 mmHg LEFT MAIN: Angiographically normal LEFT ANTERIOR DESCENDING ARTERY: MID LAD: s/p SP and DX: occluded DIAGONAL 1: Proximal - 75 % Stenosis CIRCUMFLEX ARTERY: pre stent: 75 % Stenosis PROX CIRC: Previously placed stent is patent OM 2: Ostial - small caliber vessel: ostial: subtotally occluded c/w stent alf RIGHT CORONARY ARTERY: DISTAL RCA: Previously placed stent is patent RIGHT AV SEGMENT: 50 % Stenosis AORTIC ROOT: Angiographically normal PCI: 10-10-2021 PTCA/BRAVO: LCx PTCA/BRAVO: Diagonal branch Physical Exam Const alert and oriented x3 Orientation / Consciousness: awake HEENT normocephalic and head/scalp atraumatic Eyes PERRL, EOMs intact bilaterally, conjunctivae normal and no scleral icterus Neck full ROM and supple Carotids: normal carotid upstroke Resp Auscultation: rhonchi throughout Cardio regular rate, regular rhythm, S1 normal heart sound and S2 normal heart sound GI normal to inspection, nondistended, normoactive bowel sounds Extremity no pedal edema Skin no rashes or lesions noted Psych mental status grossly normal Assessment & Plan Assessment/Plan (1) Takotsubo cardiomyopathy: PLAN: The patient was evaluated in cardiovascular consultation on 10-12-2021. Based upon the clinical scenario and objective findings at that time it appears the patient was thought to have a diagnosis compatible with Takotsubo's syndrome/cardiomyopathy. The patient has been monitored in the ICU. She has been treated medically. Follow-up cardiac enzymes are pending. For follow-up ECG this morning demonstrates T wave abnormality compatible with myocardial ischemia in the anterolateral distribution which is new compared to her previous ECG. This may be compatible with such a syndrome. She had a transthoracic echocardiogram performed on 10-12-2021. It was thought to be compatible with an underlying Takotsubo syndrome. At the moment she will continue to be monitored. She will continue medical therapy. Over time consideration be given as to how to proceed with additional studies. This may include a follow-up transthoracic echocardiogram to reassess her left ventricular wall motion and systolic function. (2) Pulmonary edema: PLAN: The patient was described as having pulmonary edema. She has been monitored. She has been treated medically. She apparently has had improvement that led to her extubation earlier this day. She will continue to be followed up. A chest x-ray has been requested to reassess her pulmonary status. She will continue medical therapy with respect to diuretic therapy and elect rolyte replacement as deemed appropriate. (3) Atherosclerotic heart disease of [place] coronary artery without angina pectoris: PLAN: The patient has a history of underlying CAD. She has recently undergone evaluation, based on findings of wide-complex tachycardia compatible with nonsustained ventricular tachycardia, repeat cardiac catheterization. This led to additional PCI in the diagonal branch distribution and LCx distribution. She is continuing medical therapy. It appears that the opinion during her cardiovascular consultation on 10-12-2021 was that her CAD status did not explain the objective findings found on her transthoracic echocardiogram and thus it was less likely that it was in-stent restenosis leading to her acute cardiovascular event and more compatible with an underlying Takotsubo syndrome. Thus she was not taken back to the cardiac catheterization laboratory urgently or emergently. (4) History of coronary artery stent placement: PLAN: She does have a history of PCI both in 2020 and now in 2021. She is continuing medical therapy at this time. (5) Ischemic cardiomyopathy: PLAN: She does have a history of underlying ischemic mediated cardiomyopathy with mildly diminished LV systolic function/LVEF. Based upon her recent echocardiogram it appears that her overall LV systolic function/LVEF has declined. It is thought this is related to a Takotsubo syndrome. She will need continued medical management. Over time she will have follow-up transthoracic echocardiogram to reassess her left ventricular wall motion and systolic function and help guide further evaluation and care. (6) Wide-complex tachycardia: PLAN: She does have a history of recurrent nonsustained wide-complex tachycardia compatible with nonsustained VT. This led to her recent cardiac catheterization and PCI. The plan at that time was to continue medical therapy with beta-blockers and consider further EP evaluation in approximately 1 month. At the present time based upon the patient's acute cardiovascular event she is being monitored. She has not had recurrent wide-complex tachycardia thus far. She is being treated with her beta-blockers with adjustment of dose as deemed appropriate. She has been placed on IV amiodarone with subsequent change to oral amiodarone to minimize the risk of any recurrent cardiac dysrhythmias during the acute change in her cardiovascular status. Her use of antiarrhythmic therapy going forward will have to be considered as to how long and how it impacts on future EP evaluation. (7) Hyperlipidemia: PLAN: She should continue risk factor evaluation/medical therapy. (8) Essential hypertension: PLAN: Her blood pressure will be followed with adjustment of medicines as deemed appropriate. Addt'l Comments The patient's case was discussed and reviewed with the patient and previously with Dr. Dutta and Dr. Xiao. This note was generated using a voice recognition system and there may be incorrect words, spelling or punctuation that were not noted when reviewing the office note prior to saving. Procedure Criteria Type of Procedure Procedure Type: Elective Elective Risks - COVID COVID Risk Discussion: The surgeon/proceduralist and patient have discussed in detail the risk of exposure to and/or potential harm posed by the COVID-19 virus with having a surgery/procedure at this time versus the risk of delaying the surgery/procedure. It is not possible to know either the risk of delaying the surgery or procedure or chance of getting an infection with perfect accuracy, but a joint decision was made between the patient and the surgeon/proceduralist to proceed at this time with the scheduled surgery/procedure as indicated on the consent form.
[2021-10-14 08:05] LABS: Bedside Glucose 254 mg/dL (74-106)
[2021-10-14 08:10] LABS: Bedside Glucose 250 mg/dL (74-106)
--- NOTE | 2021-10-14 08:50 | RAD_ITS ---
STUDY: X-RAY CHEST REASON FOR EXAM: Female, 76 years old. CHF/Pulmonary Edema TECHNIQUE: Single AP portable view of the chest. COMPARISON: Comparison is made with prior study of 10/12/2021. FINDINGS: A right-sided PICC line catheter is seen with the tip in the proximal portion of the superior vena cava. EKG electrodes are seen. The endotracheal tube and orogastric tube have been removed. The lungs are clear and expanded. There is no demonstrated pleural abnormality. Normal size heart. Normal mediastinum and bill. Normal visualized pulmonary arteries. There is atherosclerotic calcification of the aortic arch with tortuosity. There are diffuse degenerative changes of the visualized thoracic spine. There is degenerative osteoarthritis of the bilateral shoulders. There is no demonstrated abnormality of the visualized soft tissue structures of the upper abdomen. RAD/Chest 1 View (Portable) IMPRESSION: No acute abnormality is seen. Electronically Signed: Gareth Rojas MD at 13:10 EDT ,
[2021-10-14 08:52] LABS: Troponin-I HS 1338 pg/mL (3.0-54.0)
--- NOTE | 2021-10-14 09:36 | PCM.PN.HOSP ---
Subjective Subjective Extubated this morning, no issues overnight. Objective Data Objective Data Vital Signs: Vital Signs Temp Pulse Resp BP Pulse Ox O2 Del Method O2 Flow Rate 99.8 F H 96 19 H 120/57 L 96 Nasal Cannula 2 10/14/21 09:00 10/14/21 09:00 10/14/21 09:00 10/14/21 09:00 10/14/21 09:00 10/14/21 09:00 10/14/21 09:00 FiO2 25 10/14/21 06:00 Oxygen Flow Rate (L/min) 2 Oxygen Delivery Method Nasal Cannula Weight: 180 lb 5.41 oz Body Mass Index (BMI) 31.8 Intake & Output: Intake and Output for Last 24 Hours 10/13/21 10/14/21 10/15/21 03:59 03:59 03:59 Intake Total 1841.96 / 1919.46 3039.55 / 3260.25 330.13 / 330.13 Output Total 3550 / 3650 950 / 950 Balance -1708.04 / -1730.54 2089.55 / 2310.25 330.13 / 330.13 Lab / Micro Data Result Diagrams: 10/14/21 04:30 10/14/21 04:30 Labs: Laboratory Results - last 24 hr 10/13/21 06:02: POC Glucose 250 H 10/13/21 10:59: POC Glucose 230 H 10/13/21 17:38: POC Glucose 217 H 10/14/21 01:01: POC Glucose 254 H 10/14/21 04:30: Sodium 140, Potassium 3.1 L, Chloride 109 H, Carbon Dioxide 23.0, Anion Gap 8, BUN 16, Creatinine 1.02, Estim Creat Clear Calc 35.95, Est GFR (MDRD) Af Amer 67, Est GFR (MDRD) Non-Af 56 L, BUN/Creatinine Ratio 15.7, Glucose 250 H, Calcium 7.4 L 10/14/21 04:30: WBC 13.2 H, RBC 3.67 L, Hgb 11.5 L, Hct 34.7 L, MCV 94.6, MCH 31.3, MCHC 33.1, RDW Std Deviation 46.4 H, RDW Coeff of Manas 13.3, Plt Count 279, MPV 9.5, Immature Gran % (Auto) 0.500, Neut % (Auto) 66.9, Lymph % (Auto) 18.6 L, Humphreys % (Auto) 10.7 H, Eos % (Auto) 2.6, Baso % (Auto) 0.7, Absolute Neuts (auto) 8.9 H, Absolute Lymphs (auto) 2.46, Nucleated RBC % 0 10/14/21 04:30: Magnesium 2.3 10/14/21 04:30: Magnesium Cancelled, Troponin I High Sens 1338 H* Micro: Microbiology 10/12/21 11:05 Sputum, Induced/Lukens Gram Stain - Final 10/12/21 11:05 Sputum, Induced/Lukens Respiratory Culture - Final 10/12/21 04:50 Blood Culture (Wb) - Femoral Artery Blood Culture - Preliminary No growth in 48 hours. 10/12/21 11:05 Mucosa - Nose Respiratory Panel (PCR) - Final 10/12/21 06:00 Urine Catheter - Hernandez Legionella Antigen - Final 10/12/21 06:00 Urine Catheter - Hernandez Streptococcus pneumoniae Antigen (M - Final 10/12/21 05:35 Nasal Secretion SARS-CoV-2 Antigen (Rapid) - Final ABG Data ABG results: ABG 10/14/21 06:06 Specimen Type ART Sample Site L Radial pH 7.41 Bicarbonate Actual 20.7 L Total CO2 22 Base Excess -4 L O2 Saturation 96 O2 % 25 ABG pCO2 32.6 L ABG pO2 81 Aureliano Test Positive O2 Delivery Device Adult Vent Vent Mode CPAP/PS POC PEEP 5 POC Pressure Suppt 5 Physical Exam Const alert, oriented x3 and no apparent distress General Appearance: cooperative HEENT normocephalic and moist oral mucous membranes Eyes PERRL, EOMs intact bilaterally and conjunctivae normal Neck supple and no JVD Resp normal respiratory effort, no retractions and no use of accessory muscles Auscultation: diminished lung sounds; Negative for crackles, rales, rhonchi or wheezes Cardio regular rate, regular rhythm, S1 normal heart sound and S2 normal heart sound Heart Sounds: murmur GI soft to palpation, non-tender and non-distended; Negative for hepatosplenomegaly Extremity no clubbing, cyanosis or edema Skin no rashes or lesions noted Neuro no focal motor deficits and no sensory deficits noted Psych Appearance: appropriate Mood & Affect: flat affect Assessment & Plan Assessment/Plan (1) Pulmonary edema: PLAN: Plan 1. Acute hypoxic respiratory failure secondary to flash pulmonary edema/acute non-STEMI type II/wide-complex tachycardia/cardiogenic shock/Takotsubo cardiomyopathy ? Currently extubated on 10/14/2021 ? Appreciate cardiology's assistance with her flash pulmonary edema and her non-STEMI ? She did have a wide-complex tachycardia and she is now on amiodarone, had to have her beta-marty stopped secondary to bradycardia ? Was able to come off of her pressor support ? Appreciate cardiology's assistance ? Antibiotics discontinued secondary to no evidence of infection 2. HTN/HLD/CAD status post stent ? Stents were recently placed last week ? Continue with antiplatelet medication ? Continue with blood pressure medications if necessary 3. Hypothyroidism ? Stable ? Continue with Synthroid 4. DM2?hold her occasions ? Finding scale insulin ? Accu-Cheks ? Make adjustments as necessary DVT: Lovenox Charges/Coding Visit Charges Inpatient E&M: 22573 Subs Hosp L2
[2021-10-14] MEDS: Enoxaparin 40 MG/0.4 ML Syringe SC (11:09)
[2021-10-14] MEDS: Amiodarone 200 MG Tablet PO ×2 (11:12→21:01)
[2021-10-14] MEDS: Metoprolol Tartrate 25 MG Tablet PO ×2 (11:13→21:01)
[2021-10-14] MEDS: Clopidogrel Bisulfate 75 MG Tablet PO (11:13)
[2021-10-14] MEDS: Losartan Potassium 50 MG Tablet PO (11:17)
[2021-10-14 11:40] LABS: Bedside Glucose 245 mg/dL (74-106)
[2021-10-14 12:02] LABS: Pathologist Review Reviewed
[2021-10-14 12:07] LABS: Pathologist Review Reviewed
[2021-10-14] MEDS: Famotidine 20 MG Tablet PO (12:28)
--- NOTE | 2021-10-14 15:42 | CASEMGMT ---
Addendum entered by Cristi Cameron 10/14/21 15:59: Spoke w/Julio @ [facility]. She is aware pt is @ [facility]. Original Note: CHRIS SMALL readmission note: Prior admission: Admitted 10/09/21 w/SVT. Heart cath done w/2 stents placed. Pt discharged home 10/11/21. She declined need for HHC. She is active w/[facility]. Current admission: Admitted 10/12/21 w/resp failure, CHF exac, and ? PNA. Pt was intubated 10/12 and extubated 10/14. CHRIS CM to room to talk w/pt, who is sitting up in recliner chair in room. Introduced self and role. Pt lives w/her and son, Sherwin, in mobile home w/ramp entrance. She states she was independent prior to this admission. She reports generalized weakness. Discussed discharge plan. Pt prefers to return home and would like HHC for SN, PT/OT, and an aide. Follow ST. Pt did state, though, if therapy recommends SNF, she may consider it. Pt was provided w/list of HHC providers including quality and resource use data and consistent with the patient's preferred geographic region, medical needs, and insurance network. The pt's preferred provider is [facility]. No home O2. Pt currently on 2 l/m. Pt states, if she qualifies for Home O2 @ d/c, she prefers [employer]. She was provided w/list for her to choose from. She does have a pulse ox. Pt states she has been taking her medication as prescribed. Plan: TBD. SNF vs Home w/HHC (SN, PT/OT, aide, and possible ST) If pt able to return home, follow for possible home O2. Anna Marie MCKEON RN, CM
[2021-10-14 18:35] LABS: Bedside Glucose 172 mg/dL (74-106)
[2021-10-14] MEDS: Atorvastatin Calcium 40 MG Tablet PO (21:01)
[2021-10-14] MEDS: Pravastatin 40 MG Tablet PO (21:01)
[2021-10-15] VITALS (20 sets, daily range): BP systolic 101–135; BP diastolic 41–83; PULSE 56–78; RESP 14–18; TEMP 36.2–37.2; O2SAT 93–100
[2021-10-15] MEDS: Insulin Lispro 100 UNIT/ML INSULN.PEN SC ×2 (00:11→16:33)
[2021-10-15 05:13] LABS: Absolute Lymphocyte Count 1.92 X10^3/uL (0.83-4.51); Absolute Neutrophil Count 6.1 X10^3/uL (2.0-7.7); Basophil# 0.05 X10^3/uL; Basophil% 0.5 % (0-1); Eosinophil# 0.47 X10^3/uL; Eosinophils% 4.9 % (0-5); Hematocrit 34.3 % (37-47); Hemoglobin 10.9 g/dL (12.0-15.0); Lymphocyte # 1.92 X10^3/ul (0.83-4.51); Mean Corp Hgb Conc 31.8 g/dL (32-36); Mean Corpuscular Hgb 31.3 pg (27.0-32.0); Mean Corpuscular Volume 98.6 fL (81-99); Mean Platelet Vol. 9.6 fl (6.2-12.0); Monocyte# 0.99 X10^3/uL; Monocyte% 10.3 % (0-10); NRBC Flagged by Analyzer 0 % (0-5); Neutrophil # 6.13 X10^3/uL (2.7-7.7); Neutrophil % 63.9 % (47-70); Platelet Count 236 K/mm3 (150-450); RBC Distribution Width CV 13.6 % (11.6-14.6); RBC Distribution Width SD 49.1 fl (35.1-43.9); Red Blood Count 3.48 M/mm3 (4.2-5.4); White Blood Count 9.6 K/mm3 (4.4-11.0)
[2021-10-15 05:25] LABS: Anion Gap 6 (5-15); BUN 15 mg/dL (7-18); BUN/Creat Ratio 16.9 RATIO (10-20); Calcium,Total 7.6 mg/dL (8.5-10.1); Chloride 110 mmol/L (98-107); Creatinine, Serum 0.89 mg/dL (0.55-1.02); EST Glomerular Filtration Rate 66 mL/min (>60); Est Glom Filt Rate - Afr Amer 79 mL/min (>60); Glucose 123 mg/dL (74-106); Potassium 3.7 mmol/L (3.5-5.1); Sodium Level 144 mmol/L (136-145)
--- NOTE | 2021-10-15 05:55 | EKG12_ITS ---
Test Reason : CHF Blood Pressure : / mmHG Vent. Rate : 081 BPM Atrial Rate : 081 BPM P-R Int : 168 ms QRS Dur : 100 ms QT Int : 462 ms P-R-T Axes : 060 045 144 degrees QTc Int : 536 ms Normal sinus rhythm T wave abnormality, consider anterolateral ischemia Prolonged QT Abnormal ECG Confirmed by JAD PHILLIP, ROMULO ([id number]), film editor supervisor PRAVIN GOODEN ([id number]) on 10/22/2021 11:21:25 AM Referred By: Niharika LEVY Confirmed By:ROMULO STREET MD
[2021-10-15] MEDS: Budesonide Respules 0.5 MG/2 ML AMPUL.NEB. INHALATION ×2 (06:45→19:16)
[2021-10-15] MEDS: Levothyroxine 100 MCG Tablet PO (06:45)
--- NOTE | 2021-10-15 06:52 | PN.CC_ITS ---
Assessment & Plan Assessment/Plan (1) Respiratory failure: (2) Hypoxemia: PLAN: Plan RECOMMENDATIONS: 1. Encourage incentive spirometer. Wean FiO2 for saturations greater than 90%. 2. Increase activity as tolerated 3. Speech therapy to clear for p.o. intake 4. Aggressive potassium and magnesium repletion. 5. Okay to leave the intensive care unit from my perspective 6. Place hearing aids to help avoid delirium 7. Hemodynamically stable on room air. Will sign off from a critical care perspective IMPRESSIONS: 1. Acute hypoxemic respiratory failure Clinical suspicion for flash pulmonary edema. Antibiotics will be discontinued given negative cultures. CTA chest was negative for PE. The patient's echocardiogram did reveal a drop in her ejection fraction from 50% to 15% over the last several days. Cardiology is following to assist with medical management. Patient has tolerated extubation well. Would avoid excess fluids if possible. Patient will need a walking oximetry prior to discharge. However, patient is currently hemodynamically stable on room air. Will sign off from a critical care perspective. 2. Probable cardiogenic shock Clinical suspicion for cardiogenic shock given negative cultures and improvement following discontinuation of propofol. We will continue cardiac optimization with Lasix. Patient does have blood pressure for beta-marty if requested by cardiology. Will defer additional work-up to cardiology pertaining to her drop in ejection fraction from 50 to 15%. 3. History of wide-complex tachycardia/coronary artery disease/ischemic cardiomyopathy Cardiology is following. Continue medical management per recommendations. Aggressive electrolyte repletion will be ordered as indicated 4. Hypokalemia/hypomagnesemia Aggressive electrolyte repletion per protocol. 5. Obesity/asthma/allergic rhinitis/hypothyroidism/hypertension/hy perlipidemia Complicates care, management, recovery and prognosis. Continue home medi cations as indicated. Initiate p.o. intake once passes swallow evaluation Subjective Subjective Patient did well overnight. Patient only on 2 L nasal cannula since extubation. Patient does report that she feels drained but is not reporting any pain. Patient was able to get to the chair for couple hours yesterday. Nursing reports patient has been hesitant to discontinue supplemental oxygen for fear th at she will stop breathing. Objective Data Objective Data Patient failed swallow evaluation yesterday, but appears to be more appropriate today. Vital Signs: Vital Signs Temp Pulse Resp BP Pulse Ox O2 Del Method O2 Flow Rate 36.9 C 56 L 16 101/41 L 98 Nasal Cannula 2 10/15/21 04:00 10/15/21 06:00 10/15/21 06:00 10/15/21 06:00 10/15/21 06:00 10/15/21 06:00 10/15/21 06:00 FiO2 25 10/14/21 06:00 Oxygen Flow Rate (L/min) 2 Oxygen Delivery Method Nasal Cannula Weight: 79.6 kg Body Mass Index (BMI) 31.8 Intake & Output: Intake and Output for Last 24 Hours 10/13/21 10/14/21 10/15/21 23:59 23:59 23:59 Intake Total 3196.59 / 3224.79 862.94 / 862.94 Output Total 1100 / 1150 2125 / 2125 50 / 50 Balance 2096.59 / 2074.79 -1262.06 / -1262.06 -50 / -50 Lab / Micro Data Attestation: I reviewed the patient's lab results. Result Diagrams: 10/15/21 05:00 10/15/21 05:00 Labs: Laboratory Results - last 24 hr 10/12/21 04:20: Diff Path Review Reviewed 10/13/21 03:05: Diff Path Review Reviewed 10/13/21 06:02: POC Glucose 250 H 10/14/21 01:01: POC Glucose 254 H 10/14/21 04:30: Magnesium Cancelled, Troponin I High Sens 1338 H* 10/14/21 11:24: POC Glucose 245 H 10/14/21 18:13: POC Glucose 172 H 10/15/21 05:00: WBC 9.6, RBC 3.48 L, Hgb 10.9 L, Hct 34.3 L, MCV 98.6, MCH 31.3, MCHC 31.8 L, RDW Std Deviation 49.1 H, RDW Coeff of Manas 13.6, Plt Count 236, MPV 9.6, Immature Gran % (Auto) 0.400, Neut % (Auto) 63.9, Lymph % (Auto) 20.0, [place] % (Auto) 10.3 H, Eos % (Auto) 4.9, Baso % (Auto) 0.5, Absolute Neuts (auto) 6.1, Absolute Lymphs (auto) 1.92, Nucleated RBC % 0 10/15/21 05:00: Sodium 144, Potassium 3.7, Chloride 110 H, Carbon Dioxide 28.0, Anion Gap 6, BUN 15, Creatinine 0.89, Estim Creat Clear Calc 41.20, Est GFR (MDRD) Af Amer 79, Est GFR (MDRD) Non-Af 66, BUN/Creatinine Ratio 16.9, Glucose 123 H, Calcium 7.6 L Micro: Microbiology 10/12/21 11:05 Sputum, Induced/Lukens Gram Stain - Final 10/12/21 11:05 Sputum, Induced/Lukens Respiratory Culture - Final 10/12/21 04:50 Blood Culture (Wb) - Femoral Artery Blood Culture - Preliminary No growth in 48 hours. 10/12/21 11:05 Mucosa - Nose Respiratory Panel (PCR) - Final 10/12/21 06:00 Urine Catheter - Hernandez Legionella Antigen - Final 10/12/21 06:00 Urine Catheter - Hernandez Streptococcus pneumoniae Antigen (M - Final 10/12/21 05:35 Nasal Secretion SARS-CoV-2 Antigen (Rapid) - Final Radiography Diagnostic Testing: Radiology Impression Chest X-Ray 10/14/21 08:50 IMPRESSION: No acute abnormality is seen. Electronically Signed: Gareth Rojas MD at 13:10 EDT , Physical Exam Const no apparent distress Nutritional Appearance: obese HEENT normocephalic and head/scalp atraumatic Eyes PERRL and EOMs intact bilaterally Neck supple General: trachea midline Chest inspection of chest normal Resp normal respiratory effort Auscultation: diminished lung sounds; Negative for rales, rhonchi or wheezes Cardio regular rate, regular rhythm, S1 normal heart sound and S2 normal heart sound Rate: bradycardia Heart Sounds: murmur systolic III/ harsh mid left sternal border GI normal to inspection, nondistended, normoactive bowel sounds Extremity no clubbing, cyanosis or edema General Extremity: edema; Negative for clubbing Skin no rashes or lesions noted Neuro CN's II-XII intact bilaterally, moves all extremities and no focal motor deficits Psych cooperative Mood & Affect: flat affect Charges/Coding Visit Charges Inpatient E&M: 06911 Subs Hosp L3
[2021-10-15] MEDS: Aspirin 81 MG TAB.CHEW PO (08:19)
[2021-10-15] MEDS: Amiodarone 200 MG Tablet PO ×2 (08:19→20:57)
[2021-10-15] MEDS: Clopidogrel Bisulfate 75 MG Tablet PO (08:19)
[2021-10-15] MEDS: Losartan Potassium 50 MG Tablet PO (08:20)
[2021-10-15] MEDS: Metoprolol Tartrate 25 MG Tablet PO ×2 (08:20→20:57)
[2021-10-15] MEDS: Famotidine 20 MG Tablet PO (08:20)
[2021-10-15] MEDS: Enoxaparin 40 MG/0.4 ML Syringe SC (08:20)
--- NOTE | 2021-10-15 08:22 | PN.CARD_ITS ---
Subjective Subjective The patient is a wake and alert. She states her breathing is better today. He states she is hungry. Objective Data Vital Signs: Vital Signs Temp Pulse Resp BP Pulse Ox O2 Del Method O2 Flow Rate 98.4 F 56 L 16 101/41 L 98 Nasal Cannula 2 10/15/21 04:00 10/15/21 06:00 10/15/21 06:00 10/15/21 06:00 10/15/21 06:00 10/15/21 06:00 10/15/21 06:00 FiO2 25 10/14/21 06:00 Oxygen Flow Rate (L/min) 2 Oxygen Delivery Method Nasal Cannula Weight: 175 lb 7.807 oz Body Mass Index (BMI) 31.8 Intake & Output: Intake and Output for Last 24 Hours 10/13/21 10/14/21 10/15/21 23:59 23:59 23:59 Intake Total 3196.59 / 3224.79 862.94 / 862.94 Output Total 1100 / 1150 2125 / 2125 50 / 50 Balance 2096.59 / 2074.79 -1262.06 / -1262.06 -50 / -50 Lab / Micro Data Result Diagrams: 10/15/21 05:00 10/15/21 05:00 Labs: Laboratory Results - last 24 hr 10/12/21 04:20: Diff Path Review Reviewed 10/13/21 03:05: Diff Path Review Reviewed 10/14/21 04:30: Troponin I High Sens 1338 H* 10/14/21 11:24: POC Glucose 245 H 10/14/21 18:13: POC Glucose 172 H 10/15/21 05:00: WBC 9.6, RBC 3.48 L, Hgb 10.9 L, Hct 34.3 L, MCV 98.6, MCH 31.3, MCHC 31.8 L, RDW Std Deviation 49.1 H, RDW Coeff of Manas 13.6, Plt Count 236, MPV 9.6, Immature Gran % (Auto) 0.400, Neut % (Auto) 63.9, Lymph % (Auto) 20.0, Sac % (Auto) 10.3 H, Eos % (Auto) 4.9, Baso % (Auto) 0.5, Absolute Neuts (auto) 6.1, Absolute Lymphs (auto) 1.92, Nucleated RBC % 0 10/15/21 05:00: Sodium 144, Potassium 3.7, Chloride 110 H, Carbon Dioxide 28.0, Anion Gap 6, BUN 15, Creatinine 0.89, Estim Creat Clear Calc 41.20, Est GFR (MDRD) Af Amer 79, Est GFR (MDRD) Non-Af 66, BUN/Creatinine Ratio 16.9, Glucose 123 H, Calcium 7.6 L Micro: Microbiology 10/12/21 11:05 Sputum, Induced/Lukens Gram Stain - Final 10/12/21 11:05 Sputum, Induced/Lukens Respiratory Culture - Final 10/12/21 04:50 Blood Culture (Wb) - Femoral Artery Blood Culture - Preliminary No growth in 48 hours. Cardiology Labs/Tests 10/15/21 05:00: WBC 9.6, RBC 3.48 L, Hgb 10.9 L, Hct 34.3 L, MCV 98.6, MCH 31.3, MCHC 31.8 L, Plt Count 236, MPV 9.6, Immature Gran % (Auto) 0.400, Neut % (Auto) 63.9, Lymph % (Auto) 20.0, Sac % (Auto) 10.3 H, Eos % (Auto) 4.9, Baso % (Auto) 0.5, Absolute Neuts (auto) 6.1, Nucleated RBC % 0 10/15/21 05:00: Sodium 144, Potassium 3.7, Chloride 110 H, Carbon Dioxide 28.0, Anion Gap 6, BUN 15, Creatinine 0.89, Est GFR (MDRD) Af Amer 79, Est GFR (MDRD) Non-Af 66, BUN/Creatinine Ratio 16.9, Glucose 123 H, Calcium 7.6 L Rhythm: Sinus rhythm EKG: Sinus rhythm; ST and T wave change: Consider myocardial ischemia: Anterior lateral: Compared to the previous ECG these changes appear somewhat less prominent Radiography Diagnostic Testing: Radiology Impression Chest X-Ray 10/14/21 08:50 IMPRESSION: No acute abnormality is seen. Electronically Signed: Gareth Rojas MD at 13:10 EDT Reading Location ID and State: [facility] / [place] This report is pending additional review. Service support , Physical Exam Const alert, oriented x3 and no apparent distress Nutritional Appearance: obese HEENT normocephalic and head/scalp atraumatic Eyes PERRL and EOMs intact bilaterally Neck full ROM, supple and no JVD General: trachea midline Resp normal respiratory effort and clear to auscultation bilaterally Auscultation: Negative for rales, rhonchi or wheezes Cardio regular rate, regular rhythm, S1 normal heart sound and S2 normal heart sound Rate: bradycardia Heart Sounds: murmur systolic III/ harsh mid left sternal border GI normal to inspection, nondistended, normoactive bowel sounds Extremity no pedal edema General Extremity: edema; Negative for clubbing Skin no rashes or lesions noted Neuro moves all extremities and no focal motor deficits Psych cooperative Mood & Affect: flat affect Assessment & Plan Assessment/Plan (1) Takotsubo cardiomyopathy: PLAN: The patient was evaluated in cardiovascular consultation on 10-12-2021. Based upon the clinical scenario and objective findings at that time it appears the patient was thought to have a diagnosis compatible with Takotsubo's syndrome/cardiomyopathy. The patient has been monitored in the ICU. She has been treated medically. Her follow-up troponin level has decreased. Her follow-up ECG is demonstrated continued ST and T wave changes compatible with myocardial ischemia in the anterolateral distribution, however, these changes appear to be somewhat less prominent than the previous ECG. She had a transthoracic echocardiogram performed on 10-12-2021. It was thought to be compatible with an underlying Takotsubo syndrome. At the moment she will continue to be monitored. She will continue medical therapy. Over time consideration be given as to how to proceed with additional studies. This may include a follow-up transthoracic echocardiogram to reassess her left ventricular wall motion and systolic function. (2) Pulmonary edema: PLAN: The patient was described as having pulmonary edema. She has been monitored. She has been treated medically. She appears to be improved overall. She will continue to be followed up. Her follow-up chest x-ray demonstrates improvement in her underlying pulmonary status. She will continue medical therapy with respect to diuretic therapy and electrolyte replacement as deemed appropriate. (3) Atherosclerotic heart disease of [place] coronary artery without angina pectoris: PLAN: The patient has a history of underlying CAD. She has recently undergone evaluation, based on findings of wide-complex tachycardia compatible with nonsustained ventricular tachycardia, repeat cardiac catheterization. This led to additional PCI in the diagonal branch distribution and LCx distribution. She is continuing medical therapy. It appears that the opinion during her cardiovascular consultation on 10-12-2021 was that her CAD status did not explain the objective findings found on her transthoracic echocardiogram and thus it was less likely that it was in-stent restenosis leading to her acute cardiovascular event and more compatible with an underlying Takotsubo syndrome. Thus she was not taken back to the cardiac catheterization laboratory urgently or emergently. (4) History of coronary artery stent placement: PLAN: She does have a history of PCI both in 2020 and now in 2021. She is continuing medical therapy at this time. (5) Ischemic cardiomyopathy: PLAN: She does have a history of underlying ischemic mediated cardiomyopathy with mildly diminished LV systolic function/LVEF. Based upon her recent echocardiogram it appears that her overall LV systolic function/LVEF has declined. It is thought this is related to a Takotsubo syndrome. She will need continued medical management. Over time she will have follow-up transthoracic echocardiogram to reassess her left ventricular wall motion and systolic function and help guide further evaluation and care. (6) Wide-complex tachycardia: PLAN: She does have a history of recurrent nonsustained wide-complex tachycardia compatible with nonsustained VT. This led to her recent cardiac catheterization and PCI. The plan at that time was to continue medical therapy with beta-blockers and consider further EP evaluation in approximately 1 month. At the present time based upon the patient's acute cardiovascular event she is being monitored. She has not had recurrent wide-complex tachycardia thus far. She is being treated with her beta-blockers with adjustment of dose as deemed appropriate. She has been placed on IV amiodarone with subsequent change to oral amiodarone to minimize the risk of any recurrent cardiac dysrhythmias during the acute change in her cardiovascular status. Her use of antiarrhythmic therapy going forward will have to be considered as to how long and how it impacts on future EP evaluation. (7) Hyperlipidemia: PLAN: She should continue risk factor evaluation/medical therapy. (8) Essential hypertension: PLAN: Her blood pressure will be followed with adjustment of medicines as deemed appropriate. Addt'l Comments This note was generated using a voice recognition system and there may be incorrect words, spelling or punctuation that were not noted when reviewing the office note prior to saving. Procedure Criteria Type of Procedure Procedure Type: Elective Elective Risks - COVID COVID Risk Discussion: The surgeon/proceduralist and patient have discussed in detail the risk of exposure to and/or potential harm posed by the COVID-19 virus with having a surgery/procedure at this time versus the risk of delaying the surgery/procedure. It is not possible to know either the risk of delaying the surgery or procedure or chance of getting an infection with perfect accuracy, but a joint decision was made between the patient and the surgeon/proceduralist to proceed at this time with the scheduled surgery/procedure as indicated on the consent form.
[2021-10-15] MEDS: Furosemide 20 MG Tablet PO (08:28)
--- NOTE | 2021-10-15 09:31 | CASEMGMT ---
This OSMAR and OSMAR Virk met with patient. SW introduced SW's and role at [facility]. Patient was not sure about a discharge plan. SW provided patient with a list of SNF providers including quality and resource use data and consistent with the patient?s preferred geographic region, medical needs, and insurance network. SW let her know RN GEOVANNY and OSMAR will continue to follow for d/c planning. Ledy Alvares MSW MAUREEN
--- NOTE | 2021-10-15 11:06 | PCM.PN.HOSP ---
Subjective Subjective Doing well, no issues overnight, breathing well. Objective Data Objective Data Vital Signs: Vital Signs Temp Pulse Resp BP Pulse Ox O2 Del Method O2 Flow Rate 98.9 F 63 14 108/83 H 97 Room Air 2 10/15/21 10:00 10/15/21 10:00 10/15/21 10:00 10/15/21 10:00 10/15/21 10:00 10/15/21 10:00 10/15/21 06:00 FiO2 25 10/14/21 06:00 Oxygen Flow Rate (L/min) 2 Oxygen Delivery Method Room Air Weight: 175 lb 7.807 oz Body Mass Index (BMI) 31.8 Intake & Output: Intake and Output for Last 24 Hours 10/14/21 10/15/21 10/16/21 03:59 03:59 03:59 Intake Total 3039.55 / 3260.25 700.13 / 700.13 270 / 270 Output Total 950 / 950 2075 / 2125 700 / 700 Balance 2089.55 / 2310.25 -1374.87 / -1424.87 -430 / -430 Lab / Micro Data Result Diagrams: 10/15/21 05:00 10/15/21 05:00 Labs: Laboratory Results - last 24 hr 10/12/21 04:20: Diff Path Review Reviewed 10/13/21 03:05: Diff Path Review Reviewed 10/14/21 11:24: POC Glucose 245 H 10/14/21 18:13: POC Glucose 172 H 10/15/21 05:00: WBC 9.6, RBC 3.48 L, Hgb 10.9 L, Hct 34.3 L, MCV 98.6, MCH 31.3, MCHC 31.8 L, RDW Std Deviation 49.1 H, RDW Coeff of Manas 13.6, Plt Count 236, MPV 9.6, Immature Gran % (Auto) 0.400, Neut % (Auto) 63.9, Lymph % (Auto) 20.0, [place] % (Auto) 10.3 H, Eos % (Auto) 4.9, Baso % (Auto) 0.5, Absolute Neuts (auto) 6.1, Absolute Lymphs (auto) 1.92, Nucleated RBC % 0 10/15/21 05:00: Sodium 144, Potassium 3.7, Chloride 110 H, Carbon Dioxide 28.0, Anion Gap 6, BUN 15, Creatinine 0.89, Estim Creat Clear Calc 41.20, Est GFR (MDRD) Af Amer 79, Est GFR (MDRD) Non-Af 66, BUN/Creatinine Ratio 16.9, Glucose 123 H, Calcium 7.6 L Micro: Microbiology 10/12/21 11:05 Sputum, Induced/Lukens Gram Stain - Final 10/12/21 11:05 Sputum, Induced/Lukens Respiratory Culture - Final 10/12/21 04:50 Blood Culture (Wb) - Femoral Artery Blood Culture - Preliminary No growth in 48 hours. 10/12/21 11:05 Mucosa - Nose Respiratory Panel (PCR) - Final 10/12/21 06:00 Urine Catheter - Hernandez Legionella Antigen - Final 10/12/21 06:00 Urine Catheter - Hernandez Streptococcus pneumoniae Antigen (M - Final 10/12/21 05:35 Nasal Secretion SARS-CoV-2 Antigen (Rapid) - Final Radiography Diagnostic Testing: Radiology Impression Chest X-Ray 10/14/21 08:50 IMPRESSION: No acute abnormality is seen. Electronically Signed: Gareth Rojas MD at 13:10 EDT , Physical Exam Narrative Const alert, oriented x3 and no apparent distress General Appearance: cooperative HEENT normocephalic and moist oral mucous membranes Eyes PERRL, EOMs intact bilaterally and conjunctivae normal Neck supple and no JVD Resp normal respiratory effort, no retractions and no use of accessory muscles Auscultation: diminished lung sounds; Negative for crackles, rales, rhonchi or wheezes Cardio regular rate, regular rhythm, S1 normal heart sound and S2 normal heart sound Heart Sounds: murmur GI soft to palpation, non-tender and non-distended; Negative for hepatosplenomegaly Extremity no clubbing, cyanosis or edema Skin no rashes or lesions noted Neuro no focal motor deficits and no sensory deficits noted Psych Appearance: appropriate Mood & Affect: flat affect Assessment & Plan Assessment/Plan (1) Pulmonary edema: PLAN: Plan 1. Acute hypoxic respiratory failure secondary to flash pulmonary edema/acute non-STEMI type II/wide-complex tachycardia/cardiogenic shock/Takotsubo cardiomyopathy ?Extubated on 10/14/2021 ? Appreciate cardiology's assistance with her flash pulmonary edema and her non-STEMI ? She did have a wide-complex tachycardia and she is now on amiodarone, had to have her beta-marty stopped secondary to bradycardia ? Was able to come off of her pressor support ? Appreciate cardiology's assistance ? Antibiotics discontinued secondary to no evidence of infection 2. HTN/HLD/CAD status post stent ? Stents were recently placed last week ? Continue with antiplatelet medication ? Continue with blood pressure medications if necessary 3. Hypothyroidism ? Stable ? Continue with Synthroid 4. DM2?hold her occasions ?Sliding scale insulin ? Accu-Cheks ? Make adjustments as necessary DVT: Lovenox Charges/Coding Visit Charges Inpatient E&M: 75117 Subs Hosp L2
--- NOTE | 2021-10-15 11:06 | NURSING ---
report called to [facility] for transfer to [facility], transferred per bed with belongings ,family present
[2021-10-15 12:25] LABS: Bedside Glucose 186 mg/dL (74-106)
--- NOTE | 2021-10-15 14:43 | ST.MBS ---
Modified Barium Swallow - Patient Information Study Date: 10/15/21 Study Time: 14:00 Direct Billable Minutes: 100 Total Minutes procedure & reportin Diagnosis: Respiratory failure (J96.90) Referring Physician: Thai Rose Reason for Referral: Objectively assess swallow function, risk for aspiration, and determine recommendations for least restrictive diet textures and compensatory strategies to improve safety of swallow. Medical History: The patient is a 76 y/o F w/ PMHx: Asthma with allergic rhinitis, HTN, HLD, CAD s/p PCI w/ Hx [place], Ischemic cardiomyopathy, Depression and Anxiety, Diabetes mellitus type II with neuropathy, GERD, Hx Rheumatic fever, Hypothyroidism, Rheumatoid arthritis, Fibromyalgia, Obesity, recent admission 10/09/21-10/11/21 secondary to episodes noted on HM of wide complex tachycardia. On 10/12/2021 she re-presented to the [facility] ED on 10/12/21 with history of onset of significantly acutely worsening dyspnea when up attempting to use the restroom just prior to ED presentation prompting call for EMS.? EMS placed patient on a nonrebreather and upon initial ED arrival was noted to be 50% with significant evident confusion, dyspnea, evident respiratory failure with immediate intubation needs. Chest X-ray 10/12/2021 revealed multifocal PNA. Pt extubated 10/14/2021 and recommended NPO with plans for MBS study 10/15/2021 to objectively assess swallow function and aspiration risk. Current Diet Ordered: NPO Dentition: WNL Mental Status: WNL Respiratory Status: Oxygenating on Room Air - Penetration-Aspiration Scale Penetration-Aspiration Scale: OBJECTIVE ASSESSMENT OF SWALLOW FUNCTION (QUANTITATIVE ? PER TRIAL): PENETRATION / ASPIRATION SCALE (BROOKS): 1 = does not enter airway 2 = enters airway/above vocal folds/ejected 3 = enters airway/above vocal folds/not ejected 4 = enters airway/contacts vocal folds/ejected 5 = enters airway/contacts vocal folds/not ejected 6 = enters airway/below vocal folds/ejected 7 = enters airway/below vocal folds/not ejected despite effort 8 = enters airway/below vocal folds/no effort VIDEOFLOROSCOPIC SCALE SCORE (BROOKS): Grade I = aspiration of material that has penetrated into the laryngeal vestibule, intact cough reflex Grade II = aspiration < 10 % of the bolus, intact cough reflex Grade III = aspiration of < 10 % of the bolus, reduced cough reflex or aspiration of > 10 % of the bolus, intact cough reflex Grade IV = aspiration of > 10 % of the bolus, reduced cough reflex - Penetration-Aspiration Scale Score Thin Liquid via teaspoon Result: 7= enters airways/below vocal folds/not ejected despite effort Comment: Grade III = aspiration of < 10 % of the bolus, reduced cough reflex Thin Liquid via teaspoon Trial 2 Result: 8= enters airway/below vocal folds/no effort Comment: Grade III = aspiration of < 10 % of the bolus, no cough reflex Thin Liquid via small single sip from cup Result: 3= enters airways/above vocal folds/not ejected Comment: Cued cough and re-swallow to clear laryngeal vestibule - effective. Thin Liquid via small single sip from cup Effortful swallow Result: 1= does not enter airway [place] Thick Liquid via small single sip from cup Result: 1= does not enter airway [place] Thick Liquid via small single sip from cup Result: 1= does not enter airway Pudding via teaspoon with esophageal screen Result: 1= does not enter airway [place] Thick Liquid via small single sip from cup Trial 2 Comment: Did not score - utilized trial during esophageal screen for liquid wash of pudding. 1/2 Cookie Result: 1= does not enter airway Thin Liquid via single sip from straw Result: 2= enter airway/above vocal folds/ejected Thin Liquid via single sip from straw Trial 2 Result: 1= does not enter airway Thin Liquid via sequential sips from straw Result: 1= does not enter airway [place] Thick Liquid via small single sip from cup Trial 3 Result: 3= enters airways/above vocal folds/not ejected Comment: Cued cough and re-swallow to clear laryngeal vestibule - effective. Thin Liquid via single sip from straw Trial 3 Result: 3= enters airways/above vocal folds/not ejected - trace residue in laryngeal vestibule Thin Liquid via single sip from straw Effortful swallow Result: 1= does not enter airway - Oral Phase Labial Seal: No Labial Escape Tongue Control During Bolus Hold: Posterior escape of less than half of bolus Bolus Preparation/Mastication: Slow prolonged chewing/mashing with complete recollection Bolus Transport/Lingual Motion: Repetitive/disorganized tongue motion Oral Residue: Residue collection on oral structures - piecemeal deglutition of pudding and cookie - Pharyngeal Phase Initiation of Pharyngeal Swallow: Bolus head in pyriforms - sequential thin Soft Palate Elevation: Trace column of contrast/air between soft palate and pharyngeal wall Laryngeal Elevation: Partial superior movement thyroid cart/partial apprx aryt-epig petiole Anterior Hyoid Excursion: Partial anterior movement Epiglottic Movement: Complete inversion Laryngeal Vestibule Closure at Height of Swallow: Incomplete; narrow column of air/contrast in laryngeal vestibule Pharyngeal Stripping Wave: Present - complete Pharyngoesophageal Segment Opening: Complete distension and complete duration; no obstruction of flow Tongue Base Retraction: Trace column of contrast between tongue base & post. pharyngeal wall Pharyngeal Residue: Trace residue within or on pharyngeal structures - Esophageal Phase Esophageal Clearance: Esophageal retention w/ retrograde flow below pharyngoesophageal seg. - Treatment Strategies Effects of treatment strategies attemped:: Effortful swallow = Effective in improving laryngeal vestibular closure during the swallow. Liquid wash = Somewhat effective in clearing esophageal retention of pudding. Cough and re-swallow = Effective in clearing laryngeal vestibule of residue. - Diagnosis/Impression Diagnosis: Mod. oropharyngeal dysphagia (R13.12), Mild esophageal dysphagia (R13.14) Impression: The oral phase is primarily marked by... -Prolonged mastication. -Piecemeal deglutition of cookie and pudding trials. -Repetitive tongue motion for anterior-posterior transport of cookie. -Mildly decreased bolus control with premature posterior loss of bolus to the pharynx prior to swallow onset, most notably with sequential sips of thin liquid. The pharyngeal phase is primarily marked by... -Mildly delayed swallow onset. -Mildly decreased laryngeal elevation and anterior hyoid movement resulting in decreased airway closure during the swallow. -SILENT aspiration of second trial of thin liquids via tsp. Weak cough in response to aspiration of first trials of thin liquid via tsp, which did not eject aspirated contrast from the trachea. SEE PAS scores above for full details regarding aspiration and laryngeal penetration of trials. The esophageal phase is primarily marked by... -Esophageal retention of pudding in the mid and upper esophagus with retrograde flow remaining below the upper esophageal sphincter. [place]/mildly thick liquid wash somewhat cleared pudding contrast. -Increased risk for reflux aspiration. - Recommendations Diet: Thin Liquids - Soft and Bite Size Textures (IDDSI Level 6) (no mixed consistencies involving a thin liquid) Comment: LIQUIDS BY STRAW ONLY, SIPS ONE AT A TIME, EFFORTFUL SWALLOWS Compensatory Strategies: Small Bites, Small Sips, Slow Rate, Alternate bites/solids and sips/liquids, Sitting upright, Remain sitting upright for 30 minutes after PO intake Supervision: 1:1 Close Supervision - For ALL food and drink, oral care after meals Recommend Repeat Modified Barium Swallow: TBD Need for Skilled Speech Therapy Services: Yes Recommended Referrals: GI Consult - Esophageal retention of pudding in mid and upper esophagus with retrograde flow observed. Education Completed: 1. Described result of evaluation., 2. Pt understands evaluation & agrees with goals and treatment plan., 7. Pt requires further education on strategies & risks. - Status Active ST Patient: Active - Contact Information [facility] Speech Therapy:: Evelyn Owens M.A. [facility]EPILEPSY PHYSICIAN Speech-Language Pathologist [facility] [address] [place] [address] [email or web address] [phone] 10/15/21 15:12
[2021-10-15 16:51] LABS: Bedside Glucose 157 mg/dL (74-106)
[2021-10-15] MEDS: Atorvastatin Calcium 40 MG Tablet PO (20:56)
[2021-10-15] MEDS: Pravastatin 40 MG Tablet PO (20:57)
[2021-10-16] VITALS (9 sets, daily range): BP systolic 119–140; BP diastolic 49–64; PULSE 56–75; RESP 16; TEMP 36.7–37.2; O2SAT 93–98
[2021-10-16 00:10] LABS: Bedside Glucose 134 mg/dL (74-106)
[2021-10-16 05:04] LABS: Bedside Glucose 150 mg/dL (74-106)
[2021-10-16 05:52] LABS: Absolute Lymphocyte Count 1.55 X10^3/uL (0.83-4.51); Absolute Neutrophil Count 5.6 X10^3/uL (2.0-7.7); Basophil# 0.03 X10^3/uL; Basophil% 0.4 % (0-1); Eosinophil# 0.31 X10^3/uL; Eosinophils% 3.7 % (0-5); Hematocrit 34.3 % (37-47); Hemoglobin 11.4 g/dL (12.0-15.0); Lymphocyte # 1.55 X10^3/ul (0.83-4.51); Lymphocyte % 18.6 % (19-41); Mean Corp Hgb Conc 33.2 g/dL (32-36); Mean Corpuscular Hgb 31.7 pg (27.0-32.0); Mean Corpuscular Volume 95.3 fL (81-99); Mean Platelet Vol. 9.5 fl (6.2-12.0); Monocyte# 0.86 X10^3/uL; Monocyte% 10.3 % (0-10); NRBC Flagged by Analyzer 0 % (0-5); Neutrophil # 5.55 X10^3/uL (2.7-7.7); Neutrophil % 66.6 % (47-70); Platelet Count 249 K/mm3 (150-450); RBC Distribution Width CV 13.1 % (11.6-14.6); RBC Distribution Width SD 46.1 fl (35.1-43.9); White Blood Count 8.3 K/mm3 (4.4-11.0)
[2021-10-16] MEDS: Levothyroxine 50 MCG Tablet PO (06:22)
[2021-10-16] MEDS: Insulin Lispro 100 UNIT/ML INSULN.PEN SC ×2 (06:22→12:09)
[2021-10-16] MEDS: 0.9% Saline Lock 10 ML Syringe IV (06:22)
[2021-10-16 06:27] LABS: Anion Gap 6 (5-15); BUN 14 mg/dL (7-18); BUN/Creat Ratio 17.9 RATIO (10-20); Calcium,Total 7.9 mg/dL (8.5-10.1); Chloride 107 mmol/L (98-107); Creatinine, Serum 0.78 mg/dL (0.55-1.02); EST Glomerular Filtration Rate 76 mL/min (>60); Est Glom Filt Rate - Afr Amer 91 mL/min (>60); Estimated Creatinine Clearance 36.67 ml/min; Glucose 138 mg/dL (74-106); Potassium 3.5 mmol/L (3.5-5.1); Sodium Level 141 mmol/L (136-145)
[2021-10-16 07:30] LABS: Bedside Glucose 151 mg/dL (74-106)
[2021-10-16] MEDS: Budesonide Respules 0.5 MG/2 ML AMPUL.NEB. INHALATION (07:43)
[2021-10-16] MEDS: Metoprolol Tartrate 25 MG Tablet PO (08:48)
[2021-10-16] MEDS: Clopidogrel Bisulfate 75 MG Tablet PO (08:48)
[2021-10-16] MEDS: Famotidine 20 MG Tablet PO (08:48)
[2021-10-16] MEDS: Potassium Chloride Oral Tablet 20 MEQ PO (08:48)
[2021-10-16] MEDS: Amiodarone 200 MG Tablet PO (08:49)
[2021-10-16] MEDS: Aspirin 81 MG TAB.CHEW PO (08:49)
[2021-10-16] MEDS: Enoxaparin 40 MG/0.4 ML Syringe SC (08:49)
[2021-10-16] MEDS: Losartan Potassium 50 MG Tablet PO (08:49)
[2021-10-16] MEDS: Furosemide 20 MG Tablet PO (08:49)
--- NOTE | 2021-10-16 09:21 | CASEMGMT ---
Physician said patient would like to go to SNF. SW met with patient again to discuss her d/c plan. Patient said she wants to go home. Patient does not feel she needs to go to a [facility] for rehab. Patient would like home health. OSMAR will notify CHRIS Colin. Ledy Alvares [employer]
--- NOTE | 2021-10-16 10:10 | DCINST_ITS ---
Discharge Instructions Diet Discharge Diet: Low fat / Low cholesterol and Carb Control Diet Activity Discharge Activity: Return to Normal Activity Dressing / Incision Call your doctor if you observe: Fever of 101 or Higher, Shortness of breath, Dizziness, Fainting spells, Swelling in the ankles, Chest pain and Increased palpitations (irregular heartbeat) Follow Up Care Test Results: Test results from this visit will be discussed in further detail at your follow- up appointment, if applicable. Discharge Plan Admission Admit Date/Time: 10/12/21 05:26 Attending Provider: Thai Rose Primary Care Provider: Su Thomas Consulting Providers: Peg Camacho ; Mo Rao ; Librado Xiao ; Armando Gibbs Discharge Orders/Prescriptions Prescriptions: New metoprolol tartrate 25 mg Tablet 25 mg PO BID Qty: 60 0RF amiodarone 200 mg Tablet 200 mg PO DAILY Qty: 30 0RF furosemide 20 mg Tablet 20 mg PO DAILY Qty: 30 0RF Continued losartan 50 mg tablet 50 mg PO DAILY azelastine 137 mcg (0.1 %) aerosol,spray 1 spray INTRANASAL BID azelastine 0.05 % drops 1 drp OPHTHALMIC BID loratadine [Claritin] 10 mg tablet 10 mg PO DAILY Flovent HFA 220 mcg/actuation HFA aerosol inhaler 1 puff inhalation QODAY levothyroxine 100 mcg tablet 100 mcg PO Q OTHER DAY Rx Instructions: Alternate 50 mcg with 100 mcg tramadol 50 mg tablet 25 mg PO DAILY PRN (Reason: Pain, Moderate) potassium chloride 10 mEq tablet,ER particles/crystals 10 meq PO DAILY ergocalciferol (vitamin D2) 1,250 mcg (50,000 unit) capsule 50,000 unit PO 2XW Food drops 3 drp sublingual Q OTHER DAY cascara sagrada 450 mg Capsule 450 mg PO BID montelukast 5 mg tablet,chewable 5 mg PO QHS Label Comments: CHEW AND SWALLOW 1 TABLET BY MOUTH ONCE DAILY levothyroxine 100 mcg tablet 50 mcg PO QODAY fluticasone propionate 50 mcg/actuation spray,suspension 1 spray INTRANASAL BID aspirin 81 mg tablet,delayed release (DR/EC) 81 mg PO 1700 fluorometholone 0.1 % Drops,Suspension 1 drp EACH EYE BID clopidogrel [Plavix] 75 mg tablet 75 mg PO QDAY Qty: 90 3RF pravastatin 40 mg tablet 40 mg PO QHS Qty: 90 3RF Farxiga 10 mg tablet 10 mg PO DAILY Discontinued triamterene-hydrochlorothiazid 37.5-25 mg tablet 1 tab PO QODAY metoprolol tartrate 100 mg Tablet 100 mg PO BID Qty: 60 0RF Referrals / Follow Up: Su Thomas DO [Primary Care Provider] - Within 1 Week Joseph Stahl MD [STAFF PHYSICIAN] - Within 1 Month Disposition Disposition (needs filled in before D/C Order can be placed): Home, Self Care
--- NOTE | 2021-10-16 10:30 | DS.PCM_ITS ---
Providers Date of Admission: 10/12/21 Primary Care Physician: Dr. Su Thomas, DO Consultations 10/12/21 07:28 Consult: Cardiology Routine Consulting Provider: Librado Xiao Reason for Consult: Resp failure, Flash pulm edema EMERGENT Consult: No MD Notified: Yes Date Notified: 10/12/21 Time Notified: 05:37 Method of Notification: ED Physician Initiated Consult: Privacy Specialist / Pulmonary Medicine Routine Consulting Provider: Armando Gibbs Reason for Consult: Vent management EMERGENT Consult: No Notified: Yes Date Notified: 10/12/21 Time Notified: 05:33 Method of Notification: Text Reason For Visit: RESPIRATORY FAILURE, CHF EXAC, ? PNA Diagnosis Discharge Diagnosis (1) Pulmonary edema: Status: Acute Code(s): J81.1 - Chronic pulmonary edema Plan 1. Acute hypoxic respiratory failure secondary to flash pulmonary edema/acute non-STEMI type II/wide-complex tachycardia/cardiogenic shock/Takotsubo cardiomyopathy ?Extubated on 10/14/2021 ? Appreciate cardiology's assistance with her flash pulmonary edema and her non- STEMI ? She did have a wide-complex tachycardia and she is now on amiodarone, had to have her beta-marty stopped secondary to bradycardia ? Was able to come off of her pressor support ? Appreciate cardiology's assistance ? Antibiotics discontinued secondary to no evidence of infection 2. HTN/HLD/CAD status post stent ? Stents were recently placed last week ? Continue with antiplatelet medication ? Continue with blood pressure medications if necessary 3. Hypothyroidism ? Stable ? Continue with Synthroid 4. DM2?hold her occasions ?Sliding scale insulin ? Accu-Cheks ? Make adjustments as necessary DVT: Lovenox Medications at Discharge Home Medications azelastine 0.05 % eye drops 1 drp ophthalmic (eye) BID 01/29/18 azelastine 137 mcg (0.1 %) nasal spray aerosol 1 spray intranasal BID 01/29/18 loratadine 10 mg tablet (Claritin) 10 mg PO DAILY 01/29/18 losartan 50 mg tablet 50 mg PO DAILY 01/29/18 cascara sagrada 450 mg capsule 450 mg PO BID SUPPLEMENT 12/19/20 levothyroxine 100 mcg tablet 50 mcg PO QODAY THYROID 12/19/20 montelukast 5 mg chewable tablet 5 mg PO QHS ALLERGIES 12/19/20 clopidogrel 75 mg tablet (Plavix) 75 mg PO QDAY #90 tabs 02/08/21 fluticasone propionate 220 mcg/actuation HFA aerosol inhaler (Flovent HFA) 1 puff inhalation QODAY 02/28/21 levothyroxine 100 mcg tablet 100 mcg PO Q OTHER DAY 02/28/21 tramadol 50 mg tablet 25 mg PO DAILY PRN Pain, Moderate 02/28/21 pravastatin 40 mg tablet 40 mg PO QHS #90 tabs 04/22/21 aspirin 81 mg tablet,delayed release 81 mg PO 1700 05/22/21 Food drops 3 drp sublingual Q OTHER DAY 05/28/21 ergocalciferol (vitamin D2) 1,250 mcg (50,000 unit) capsule 50,000 unit PO 2XW 05/28/21 fluticasone propionate 50 mcg/actuation nasal spray,suspension 1 spray intranasal BID 05/28/21 potassium chloride 10 mEq tablet,extended release(part/cryst) 10 meq PO DAILY 05/28/21 dapagliflozin 10 mg tablet (Fartomekaga) 10 mg PO DAILY per Dr. Thomas 10/08/21 fluorometholone 0.1 % eye drops,suspension 1 drp EACH EYE BID eye drops 10/09/21 amiodarone 200 mg tablet 200 mg PO DAILY #30 tabs 10/16/21 furosemide 20 mg tablet 20 mg PO DAILY #30 tabs 10/16/21 metoprolol tartrate 25 mg tablet 25 mg PO BID #60 tabs 10/16/21 Hospital Course Operations None Procedures 2-D Echocardiogram and Intubation Summary of Care Provided Minutes Spent on Discharge: 45 Hospital Course: Per HPI: The patient is a 76 y/o F w/ PMHx: Asthma with allergic rhinitis, HTN, HLD, CAD s/p PCI w/ Hx NM, Ischemic cardiomyopathy, Depression and Anxiety, Diabetes mellitus type II with neuropathy, GERD, Hx Rheumatic fever, Hypothyroidism, Rheumatoid arthritis, Fibromyalgia, Obesity, recent admission 10/09/21-10/11/21 secondary to episodes noted on HM of wide complex tachycardia placed on amiodarone and taken for cardiac catheterization with occlusive CAD circumflex artery and diagonal branch LCA with PCI performed with discharge on increased BB regimen off amiodarone with no further arrythmia who now re- presents to the [facility] ED on 7/16/22 with history of onset of significantly acutely worsening dyspnea when up attempting to use the restroom just prior to ED presentation prompting call for EMS.? EMS placed patient on a nonrebreather and upon initial ED arrival was noted to be 50% with significant evident confusion, dyspnea, evident respiratory failure with immediate intubation needs. Work-up in the ED included T 97, heart rate 101, BP 190/124, 70% on a nonrebreather--> heart rate 66, respiratory rate 14, 95% on 100% FiO2 intubated, CBC with WC 22, hemoglobin 15.4, platelet 364 with left shift and lymphocytosis, BMP with chlori de 108, carbon oxide 20, BUN/creatinine 24/1.25, glucose 390, troponin 72, BNP 490.1, chest x-ray with ET tube terminating just inferior to the clavicle heads, 3.5 cm above the sal although not well visualized on exam, multifocal pneumonia, D-dimer/ABG/lactic acid pending upon evaluation, EKG with SR without acute evidence of ischemia with nonspecific changes. In the ED patient administered morphine 4 mg IV x1, Lasix 80 mg IV x1 and placed on a nitroglycerin drip in addition to succinylcholine, etomidate for intubation with propofol drip. ED discussed case with Dr. Xiao. Hospital Course: 1. Acute hypoxic respiratory failure secondary to flash pulmonary edema from Takotsubo's cardiomyopathy and a wide-complex tachycardia/cardiogenic shock/acute non-STEMI type II?76-year-old female presented to the hospital with worsening dyspnea. She was intubated on admission and extubated on 10/14/2021, at which point she was also discontinued on her pressor support. She had been recently admitted to the hospital between 10/09 and 10/11/2021 for stent placement. Echo on this admission demonstrated an EF of 15% and it was felt on the echo that this was likely a Takotsubo's cardiomyopathy and so no repeat cardiac cath was performed on this admission. Cardiology was consulted and recommended medical management and outpatient follow-up to see if there is resolution of her reduced EF. She did have several medication changes, her hydrochlorothiazide and triamterene were discontinued and her metoprolol was decreased from 100 mg p.o. to 25 mg p.o. twice daily. She was also started on amiodarone 200 mg daily as well as Lasix 20 mg p.o. daily. I recommend that she follow-up with her primary care doctor in 3 to 5 days for monitoring of her renal function as well as following up with cardiology within a month to schedule a repeat echocardiogram. I discussed with her the plan for discharge and the possibility of transitioning to SNF however she feels that she is strong enough to be able to go home and would like to go home today. She did express understanding of the risk and benefits of discharge today. 2. Hypertension, hyperlipidemia, coronary artery disease status post stent, hypothyroidism, type 2 diabetes are all chronic medical conditions which complicate her care. Her home medications were continued where appropriate Physical Exam Narrative Const alert, oriented x3 and no apparent distress General Appearance: cooperative HEENT normocephalic and moist oral mucous membranes, hard of hearing Eyes PERRL, EOMs intact bilaterally and conjunctivae normal Neck supple and no JVD Resp normal respiratory effort, no retractions and no use of accessory muscles Auscultation: diminished lung sounds; Negative for crackles, rales, rhonchi or wheezes Cardio regular rate, regular rhythm, S1 normal heart sound and S2 normal heart sound Heart Sounds: murmur GI soft to palpation, non-tender and non-distended; Negative for hepatosplenomegaly Extremity no clubbing, cyanosis, mild edema Skin no rashes or lesions noted Neuro no focal motor deficits and no sensory deficits noted Psych Appearance: appropriate Mood & Affect: flat affect Weight / BMI Weight Weight: 174 lb 6.17 oz Body Mass Index (BMI) 31.8 ABG / Lab / Microbiology Data Result Diagrams: 10/16/21 Unknown 10/16/21 Unknown Laboratory: Laboratory Results - last 24 hr 10/15/21 00:10: POC Glucose 150 H 10/15/21 12:06: POC Glucose 186 H 10/15/21 16:28: POC Glucose 157 H 10/15/21 23:51: POC Glucose 134 H 10/16/21 06:21: POC Glucose 151 H 10/16/21 : WBC 8.3, RBC 3.60 L, Hgb 11.4 L, Hct 34.3 L, MCV 95.3, MCH 31.7, MCHC 33.2, RDW Std Deviation 46.1 H, RDW Coeff of Manas 13.1, Plt Count 249, MPV 9.5, Immature Gran % (Auto) 0.400, Neut % (Auto) 66.6, Lymph % (Auto) 18.6 L, [place] % (Auto) 10.3 H, Eos % (Auto) 3.7, Baso % (Auto) 0.4, Absolute Neuts (auto) 5.6, Absolute Lymphs (auto) 1.55, Nucleated RBC % 0 10/16/21 : Sodium 141, Potassium 3.5, Chloride 107, Carbon Dioxide 28.0, Anion Gap 6, BUN 14, Creatinine 0.78, Estim Creat Clear Calc 36.67, Est GFR (MDRD) Af Amer 91, Est GFR (MDRD) Non-Af 76, BUN/Creatinine Ratio 17.9, Glucose 138 H, Calcium 7.9 L Microbiology: Microbiology 10/12/21 11:05 Sputum, Induced/Lukens Gram Stain - Final 10/12/21 11:05 Sputum, Induced/Lukens Respiratory Culture - Final 10/12/21 04:50 Blood Culture (Wb) - Femoral Artery Blood Culture - Preliminary No growth in 48 hours. 10/12/21 11:05 Mucosa - Nose Respiratory Panel (PCR) - Final 10/12/21 06:00 Urine Catheter - Hernandez Legionella Antigen - Final 10/12/21 06:00 Urine Catheter - Hernandez Streptococcus pneumoniae Antigen (M - Final 10/12/21 05:35 Nasal Secretion SARS-CoV-2 Antigen (Rapid) - Final D/C Instructions Discharge Diet: Low fat / Low cholesterol and Carb Control Diet Call your doctor if you observe: Fever of 101 or Higher, Shortness of breath, Dizziness, Fainting spells, Swelling in the ankles, Chest pain and Increased palpitations (irregular heartbeat) Meaningful Use Info Meaningful Use Diagnoses (Choose all that apply): None applicable Discharge Plan Admission Admit Date/Time: 10/12/21 05:26 Attending Provider: Thai Rose Primary Care Provider: Su Thomas Consulting Providers: Peg Camacho ; Mo Rao ; Librado Xiao ; Armando Gibbs Discharge Orders/Prescriptions Prescriptions: New metoprolol tartrate 25 mg Tablet 25 mg PO BID Qty: 60 0RF amiodarone 200 mg Tablet 200 mg PO DAILY Qty: 30 0RF furosemide 20 mg Tablet 20 mg PO DAILY Qty: 30 0RF Continued losartan 50 mg tablet 50 mg PO DAILY azelastine 137 mcg (0.1 %) aerosol,spray 1 spray INTRANASAL BID azelastine 0.05 % drops 1 drp OPHTHALMIC BID loratadine [Claritin] 10 mg tablet 10 mg PO DAILY Flovent HFA 220 mcg/actuation HFA aerosol inhaler 1 puff inhalation QODAY levothyroxine 100 mcg tablet 100 mcg PO Q OTHER DAY Rx Instructions: Alternate 50 mcg with 100 mcg tramadol 50 mg tablet 25 mg PO DAILY PRN (Reason: Pain, Moderate) potassium chloride 10 mEq tablet,ER particles/crystals 10 meq PO DAILY ergocalciferol (vitamin D2) 1,250 mcg (50,000 unit) capsule 50,000 unit PO 2XW Food drops 3 drp sublingual Q OTHER DAY cascara sagrada 450 mg Capsule 450 mg PO BID montelukast 5 mg tablet,chewable 5 mg PO QHS Label Comments: CHEW AND SWALLOW 1 TABLET BY MOUTH ONCE DAILY levothyroxine 100 mcg tablet 50 mcg PO QODAY fluticasone propionate 50 mcg/actuation spray,suspension 1 spray INTRANASAL BID aspirin 81 mg tablet,delayed release (DR/EC) 81 mg PO 1700 fluorometholone 0.1 % Drops,Suspension 1 drp EACH EYE BID clopidogrel [Plavix] 75 mg tablet 75 mg PO QDAY Qty: 90 3RF pravastatin 40 mg tablet 40 mg PO QHS Qty: 90 3RF Farxiga 10 mg tablet 10 mg PO DAILY Discontinued triamterene-hydrochlorothiazid 37.5-25 mg tablet 1 tab PO QODAY metoprolol tartrate 100 mg Tablet 100 mg PO BID Qty: 60 0RF Referrals / Follow Up: Su Thomas DO [Primary Care Provider] - 10/17/21 8:15 am (This is the only appt the office has for a few weeks. ) Warren Murphy NP, [facility] [Nurse Practitioner] - 10/29/21 10:00 am Disposition Disposition (needs filled in before D/C Order can be placed): Home, Self Care Charges/Coding Visit Charges Inpatient E&M: 73231 Disch Hosp
--- NOTE | 2021-10-16 10:44 | CASEMGMT ---
Addendum entered by Cristi Cameron 10/16/21 12:55: PT/OT have worked w/pt today and per MIAN Souza, pt okay to discharge home w/[facility]. Call to Cassie @ [facility] and she was made aware. They are able to accept pt w/SOC for tomorrow. Pt and family made aware. Pt and family deny having any other discharge planning needs or concerns at this time. Addendum entered by Cristi Cameron 10/16/21 11:10: Home O2 amb testing has been completed. Pt does not qualify for Home O2. Original Note: CHRIS SMALL NOTE: RN CM to room to talk w/pt and family @ bedside. Pt confirms she does not want to go to a SNF and wants [facility]. Order placed for SN, PT/OT/ST, and an aide, if available, per pt request. Call to [facility]. SAFIA caicedo/Cassie re: referral. Awaiting call back. Anna Marie MCKEON RN CM
--- NOTE | 2021-10-16 10:52 | PN.CARD_ITS ---
Subjective Subjective The patient is awake and alert. She states she feels better overall. She notes she has been resting comfortably. She was up and ambulating yesterday without any acute issues. Objective Data Vital Signs: Vital Signs Temp Pulse Resp BP Pulse Ox O2 Del Method O2 Flow Rate 98.5 F 75 16 139/54 H 96 Room Air 2 10/16/21 08:44 10/16/21 08:48 10/16/21 08:44 10/16/21 08:48 10/16/21 08:44 10/16/21 08:57 10/15/21 15:00 FiO2 25 10/14/21 06:00 Oxygen Flow Rate (L/min) 2 Oxygen Delivery Method Room Air Weight: 174 lb 6.17 oz Body Mass Index (BMI) 31.8 Intake & Output: Intake and Output for Last 24 Hours 10/14/21 10/15/21 10/16/21 23:59 23:59 23:59 Intake Total 862.94 / 862.94 610 / 610 Output Total 2125 / 2125 800 / 800 Balance -1262.06 / -1262.06 -190 / -190 Lab / Micro Data Result Diagrams: 10/16/21 Unknown 10/16/21 Unknown Labs: Laboratory Results - last 24 hr 10/15/21 00:10: POC Glucose 150 H 10/15/21 12:06: POC Glucose 186 H 10/15/21 16:28: POC Glucose 157 H 10/15/21 23:51: POC Glucose 134 H 10/16/21 06:21: POC Glucose 151 H 10/16/21 : WBC 8.3, RBC 3.60 L, Hgb 11.4 L, Hct 34.3 L, MCV 95.3, MCH 31.7, MCHC 33.2, RDW Std Deviation 46.1 H, RDW Coeff of Manas 13.1, Plt Count 249, MPV 9.5, Immature Gran % (Auto) 0.400, Neut % (Auto) 66.6, Lymph % (Auto) 18.6 L, [place] % (Auto) 10.3 H, Eos % (Auto) 3.7, Baso % (Auto) 0.4, Absolute Neuts (auto) 5.6, Absolute Lymphs (auto) 1.55, Nucleated RBC % 0 07/20/22 : Sodium 141, Potassium 3.5, Chloride 107, Carbon Dioxide 28.0, Anion Gap 6, BUN 14, Creatinine 0.78, Estim Creat Clear Calc 36.67, Est GFR (MDRD) Af Amer 91, Est GFR (MDRD) Non-Af 76, BUN/Creatinine Ratio 17.9, Glucose 138 H, Calcium 7.9 L Cardiology Labs/Tests 10/16/21 : WBC 8.3, RBC 3.60 L, Hgb 11.4 L, Hct 34.3 L, MCV 95.3, MCH 31.7, MCHC 33.2, Plt Count 249, MPV 9.5, Immature Gran % (Auto) 0.400, Neut % (Auto) 66.6, Lymph % (Auto) 18.6 L, [place] % (Auto) 10.3 H, Eos % (Auto) 3.7, Baso % (Auto) 0.4, Absolute Neuts (auto) 5.6, Nucleated RBC % 0 10/16/21 : Sodium 141, Potassium 3.5, Chloride 107, Carbon Dioxide 28.0, Anion Gap 6, BUN 14, Creatinine 0.78, Est GFR (MDRD) Af Amer 91, Est GFR (MDRD) Non-Af 76, BUN/Creatinine Ratio 17.9, Glucose 138 H, Calcium 7.9 L Rhythm: Sinus rhythm Physical Exam Const alert, oriented x3 and no apparent distress Nutritional Appearance: obese HEENT normocephalic and head/scalp atraumatic Eyes PERRL and EOMs intact bilaterally Neck full ROM, supple and no JVD General: trachea midline Resp normal respiratory effort and clear to auscultation bilaterally Auscultation: Negative for rales, rhonchi or wheezes Cardio regular rate, regular rhythm, S1 normal heart sound and S2 normal heart sound Rate: bradycardia Heart Sounds: murmur systolic III/ harsh mid left sternal border GI normal to inspection, nondistended, normoactive bowel sounds Extremity no pedal edema General Extremity: edema; Negative for clubbing Skin no rashes or lesions noted Neuro moves all extremities and no focal motor deficits Psych cooperative Mood & Affect: flat affect Assessment & Plan Assessment/Plan (1) Takotsubo cardiomyopathy: PLAN: The patient was evaluated in cardiovascular consultation on 10-12-2021. Based upon the clinical scenario and objective findings at that time it appears the patient was thought to have a diagnosis compatible with Takotsubo's syndrome/cardiomyopathy. The patient has been in the PCU. She has been up and about without any obvious acute symptoms. Her follow-up troponin level has decreased. Her follow-up ECG is demonstrated continued ST and T wave changes compatible with myocardial ischemia in the anterolateral distribution, however, these changes appear to be somewhat less prominent than the previous ECG. She had a transthoracic echocardiogram performed on 10-12-2021. It was thought to be compatible with an underlying Takotsubo syndrome. At the moment she will continue to be monitored. She will continue medical therapy. Over time consideration be given as to how to proceed with additional studies. This may include a follow-up transthoracic echocardiogram to reassess her left ventricular wall motion and systolic function. (2) Pulmonary edema: PLAN: The patient was described as having pulmonary edema. She has been monitored. She has been treated medically. She appears to be improved overall. She will continue to be followed up. Her follow-up chest x-ray demonstrates improvement in her underlying pulmonary status. She will continue medical therapy with respect to diuretic therapy and electrolyte replacement as deemed appropriate. (3) Atherosclerotic heart disease of [place] coronary artery without angina pectoris: PLAN: The patient has a history of underlying CAD. She has recently undergone evaluation, based on findings of wide-complex tachycardia compatible with nonsustained ventricular tachycardia, repeat cardiac catheterization. This led to additional PCI in the diagonal branch distribution and LCx distribution. She is continuing medical therapy. It appears that the opinion during her cardiovascular consultation on 10-12-2021 was that her CAD status did not explain the objective findings found on her transthoracic echocardiogram and thus it was less likely that it was in-stent restenosis leading to her acute cardiovascular event and more compatible with an underlying Takotsubo syndrome. Thus she was not taken back to the cardiac catheterization laboratory urgently or emergently. (4) History of coronary artery stent placement: PLAN: She does have a history of PCI both in 2020 and now in 2021. She is continuing medical therapy at this time. (5) Ischemic cardiomyopathy: PLAN: She does have a history of underlying ischemic mediated cardiomyopathy with mildly diminished LV systolic function/LVEF. Based upon her recent echocardiogram it appears that her overall LV systolic function/LVEF has declined. It is thought this is related to a Takotsubo syndrome. She will need continued medical management. Over time she will have follow-up transthoracic echocardiogram to reassess her left ventricular wall motion and systolic function and help guide further evaluation and care. (6) Wide-complex tachycardia: PLAN: She does have a history of recurrent nonsustained wide-complex tachycardia compatible with nonsustained VT. This led to her recent cardiac catheterization and PCI. The plan at that time was to continue medical therapy with beta-blockers and consider further EP evaluation in approximately 1 month. At the present time based upon the patient's acute cardiovascular event she is being monitored. She has not had recurrent wide-complex tachycardia thus far. She is being treated with her beta-blockers with adjustment of dose as deemed appropriate. She has been placed on IV amiodarone with subsequent change to oral amiodarone to minimize the risk of any recurrent cardiac dysrhythmias during the acute change in her cardiovascular status. Her use of antiarrhythmic therapy going forward will have to be considered as to how long and how it impacts on future EP evaluation. (7) Hyperlipidemia: PLAN: She should continue risk factor evaluation/medical therapy. (8) Essential hypertension: PLAN: Her blood pressure will be followed with adjustment of medicines as deemed appropriate. Addt'l Comments This note was generated using a voice recognition system and there may be incorrect words, spelling or punctuation that were not noted when reviewing the office note prior to saving. Procedure Criteria Type of Procedure Procedure Type: Elective Elective Risks - COVID COVID Risk Discussion: The surgeon/proceduralist and patient have discussed in detail the risk of exposure to and/or potential harm posed by the COVID-19 virus with having a surgery/procedure at this time versus the risk of delaying the surgery/pro cedure. It is not possible to know either the risk of delaying the surgery or procedure or chance of getting an infection with perfect accuracy, but a joint decision was made between the patient and the surgeon/proceduralist to proceed at this time with the scheduled surgery/procedure as indicated on the consent form.
--- NOTE | 2021-10-16 11:46 | PHA.DC.MC ---
Pharmacy Service has performed discharge medication reconciliation and counseling for this patient. 1. AMIODARONE 200MG PO DAILY 2. FUROSEMIDE 20MG PO DAILY The patient's discharge medication list was reviewed for discrepancies and discrepancies were resolved. Home Medications azelastine 0.05 % eye drops 1 drp ophthalmic (eye) BID 01/29/18 azelastine 137 mcg (0.1 %) nasal spray aerosol 1 spray intranasal BID 01/29/18 loratadine 10 mg tablet (Claritin) 10 mg PO DAILY 01/29/18 losartan 50 mg tablet 50 mg PO DAILY 01/29/18 cascara sagrada 450 mg capsule 450 mg PO BID SUPPLEMENT 12/19/20 levothyroxine 100 mcg tablet 50 mcg PO QODAY THYROID 12/19/20 montelukast 5 mg chewable tablet 5 mg PO QHS ALLERGIES 12/19/20 clopidogrel 75 mg tablet (Plavix) 75 mg PO QDAY #90 tabs 02/08/21 fluticasone propionate 220 mcg/actuation HFA aerosol inhaler (Flovent HFA) 1 puff inhalation QODAY 02/28/21 levothyroxine 100 mcg tablet 100 mcg PO Q OTHER DAY 02/28/21 tramadol 50 mg tablet 25 mg PO DAILY PRN Pain, Moderate 02/28/21 pravastatin 40 mg tablet 40 mg PO QHS #90 tabs 04/22/21 aspirin 81 mg tablet,delayed release 81 mg PO 1700 05/22/21 Food drops 3 drp sublingual Q OTHER DAY 05/28/21 ergocalciferol (vitamin D2) 1,250 mcg (50,000 unit) capsule 50,000 unit PO 2XW 05/28/21 fluticasone propionate 50 mcg/actuation nasal spray,suspension 1 spray intranasal BID 05/28/21 potassium chloride 10 mEq tablet,extended release(part/cryst) 10 meq PO DAILY 05/28/21 dapagliflozin 10 mg tablet (Farxiga) 10 mg PO DAILY per Dr. Thomas 10/08/21 fluorometholone 0.1 % eye drops,suspension 1 drp EACH EYE BID eye drops 10/09/21 amiodarone 200 mg tablet 200 mg PO DAILY #30 tabs 10/16/21 furosemide 20 mg tablet 20 mg PO DAILY #30 tabs 10/16/21 metoprolol tartrate 25 mg tablet 25 mg PO BID #60 tabs 10/16/21 The patient was counseled on the following discharge medications and changes in medications for homegoing were reviewed. The Reason for Use, instructions for use, and potential side effects were reviewed for all new medications. The patient's questions regarding all of their medications were answered. The patient was able to verbally demonstrate an understanding of their discharge medications.
[2021-10-16 12:50] LABS: Bedside Glucose 183 mg/dL (74-106)
== END 2021-10-16 14:44 | disposition home health service (06) | DRG 208 ==
LOC: ED 05:40 → ICU 05:50 → PCU 10-15 11:11
PROVIDERS: Internal Medicine; Internal Medicine Cardiovascular Disease; Admitting Provider Family Medicine; Emergency Provider Emergency Medicine; PCP Internal Medicine; Visit Provider Family Medicine
DX: J81.0 Acute pulmonary edema (principal); J96.01 Acute respiratory failure with hypoxia; R57.0 Cardiogenic shock; I47.2 Ventricular tachycardia; I51.81 Takotsubo syndrome; R13.14 Dysphagia, pharyngoesophageal phase; E11.40 Type 2 diabetes mellitus with diabetic neuropathy, unspecified; M06.9 Rheumatoid arthritis, unspecified; E03.9 Hypothyroidism, unspecified; I25.10 Atherosclerotic heart disease of native coronary artery without angina pectoris; E78.5 Hyperlipidemia, unspecified; F41.9 Anxiety disorder, unspecified; J45.909 Unspecified asthma, uncomplicated; M79.7 Fibromyalgia; I10 Essential (primary) hypertension; I25.2 Old myocardial infarction; I25.5 Ischemic cardiomyopathy; E55.9 Vitamin D deficiency, unspecified; K21.9 Gastro-esophageal reflux disease without esophagitis; E83.42 Hypomagnesemia; E87.6 Hypokalemia; F32.A Depression, unspecified; Z86.16 Personal history of COVID-19; Z79.899 Other long term (current) drug therapy; Z79.82 Long term (current) use of aspirin; Z79.02 Long term (current) use of antithrombotics/antiplatelets; Z95.5 Presence of coronary angioplasty implant and graft; E66.9 Obesity, unspecified; Z68.31 Body mass index [BMI] 31.0-31.9, adult; R13.12 Dysphagia, oropharyngeal phase
CPT/HCPCS: 31500; 31720; 36415; 36569; 36600; 51702; 71045; 71275; 74018; 74230; 80048; 80053; 82803; 82962; 83605; 83735; 83880; 84100; 84145; 84484; 85025; 85379; 87040; 87070; 87205; 87426; 87449; 87633; 87635; 87641; 92526; 92610; 92611; 93005; 93308; 94002; 94003; 94640; 94660; 97110; 97162; 97166; 97530; 97535; 97802; 97803; 99251; 99285; J7040; J7050; Q9957; Q9967; A4216; C8924; G0463; J1940; J3010; J3490; U0003; U0005

== ENCOUNTER → 2021-10-21 | Outpatient (CLI) | payer MEDICARE, MEDICAID, SELFPAY ==
--- NOTE | 2021-10-21 16:25 | RAD_ITS ---
STUDY: X-RAY CHEST REASON FOR EXAM: Female, 76 years old. CHF/DYSPNEA TECHNIQUE: PA and lateral. COMPARISON: 10/14/2021. FINDINGS: LINES/DEVICES: Device overlying the anterior chest wall. LUNGS: No consolidation. Minimal blunting of the costophrenic angles. No pneumothorax. MEDIASTINUM: Aorta tortuous and atherosclerotic. CARDIAC SILHOUETTE: Not enlarged. BONES AND SOFT TISSUES: Degenerative changes in the dorsal spine. RAD/Chest PA and Lateral IMPRESSION: Small bilateral pleural effusions versus pleural thickening. No infiltrates or CHF. Electronically Signed: Agnieszka Ulloa MD at 7:44 EDT ,
== END | disposition home or self-care (01) ==
PROVIDERS: PCP Internal Medicine; Referring Provider Internal Medicine Pulmonary Disease; Visit Provider Internal Medicine Pulmonary Disease
DX: I50.9 Heart failure, unspecified (principal); R06.00 Dyspnea, unspecified
CPT/HCPCS: 71046

== ENCOUNTER → 2021-11-29 | Outpatient (CLI) | payer MEDICARE, MEDICAID, SELFPAY ==
--- NOTE | 2021-11-29 10:16 | ECHOCS_ITS ---
Reason For Study: CP, Reduced EF Procedure This was a 2D Doppler, Color Flow transthoracic echocardiogram. The study was technically difficult. Contrast injection was performed. Exam performed in department. Left Ventricle Normal LV size. Segmental dysfunction with preserved ejection fraction (see wall motion). The estimated ejection fraction is 50 %. Stage 1 diastolic dysfunction. Infero-Basal: Akinetic. Basal inferoseptal: Hypokinetic. Right Ventricle Normal RV size. Normal systolic function. Atria The left atrium is mildly enlarged. Normal right atrium. No doppler evidence for ASD. Mitral Valve There is mild mitral annular calcification. Extension of the mitral annular calcification onto the base of the posterior mitral valve leaflet. Mild (1+) eccentric mitral valve insufficiency. Tricuspid Valve Normal tricuspid valve. Trivial tricuspid valve insufficiency. Unable to estimate RV systolic pressure due to insufficient tricuspid regurgitant envelope. Aortic Valve Trisinus/trileaflet aortic valve. Mild diffuse aortic valve thickening. Mild diffuse aortic valve calcification. Mild aortic stenosis. Pulmonic Valve The pulmonic valve is not well visualized. Mild (1+) pulmonic valve insufficiency. Great Vessels Normal sized aortic root. Pericardium/Pleural No pericardial effusion. Medication 20 gauge I.V. with prn adaptor inserted into right arm. Diluted definity 1ml given slow IV push to enhance endocardial definition. MMode/2D Measurements & Calculations LVIDd: 5.2 cm IVSd: 0.92 cm LVOT diam: 2.0 cm LVIDs: 4.0 cm LVPWd: 0.66 cm RVDd: 3.5 cm FS: 23.6 % LVOT area: 3.0 cm2 Ao root diam: 3.1 cm LAV(MOD-bp): 39.4 ml LVAd ap4: 34.9 cm2 LA dimension: 3.7 cm LAV(MOD-bp) Indexed: 22.6 ml/m2 LVLd ap4: 8.0 cm LAV(MOD-sp2): 41.5 ml EDV(MOD-sp4): 125.0 ml LAV(MOD-sp4): 36.3 ml EDV(sp4-el): 129.8 ml LVAs ap4: 23.6 cm2 LVLs ap4: 6.8 cm ESV(MOD-sp4): 69.4 ml ESV(sp4-el): 69.5 ml EF(MOD-sp4): 44.5 % EF(sp4-el): 46.4 % SV(MOD-sp4): 55.6 ml SV(sp4-el): 60.3 ml Aortic Valve Planimetry: 1.2 cm2 LA A4 area: 14.4 cm2 RA A4 area: 10.1 cm2 Time Measurements MV dec time: 0.30 sec Doppler Measurements & Calculations MV E max jovani: 109.1 cm/sec Lat Peak E' Jovani: 6.3 cm/sec Med Peak E' Jovani: 4.6 cm/sec MV A max jovani: 92.4 cm/sec E/E' lat: 17.4 E/E' med: 23.8 MV E/A: 1.2 MV V2 max: 130.8 cm/sec MV P1/2t max jovani: 130.8 cm/sec Ao V2 max: 188.5 cm/sec MV max P.8 mmHg MV P1/2t: 100.7 msec Ao max P.2 mmHg MV V2 mean: 62.1 cm/sec MV dec slope: 380.4 cm/sec2 Ao V2 mean: 138.5 cm/sec MV mean P.9 mmHg MVA(P1/2t): 2.2 cm2 Ao mean P.6 mmHg MV V2 VTI: 40.0 cm Ao V2 VTI: 46.1 cm PATRICE(V,D): 1.7 cm2 LV V1 max: 107.7 cm/sec PA V2 max: 104.6 cm/sec PI end-d jovani: 147.1 cm/sec LV V1 max P.7 mmHg ECHO/Echo Complete W/ Contrast Interpretation Summary The study was technically difficult. Contrast injection was performed. Segmental dysfunction with preserved ejection fraction (see wall motion). The estimated ejection fraction is 50 %. The left atrium is mildly enlarged. There is mild mitral annular calcification. Extension of the mitral annular calcification onto the base of the posterior mi tral valve leaflet. Mild (1+) eccentric mitral valve insufficiency. Trivial tricuspid valve insufficiency. Mild aortic stenosis. Mild (1+) pulmonic valve insufficiency. Unable to estimate RV systolic pressure due to insufficient tricuspid regurgita nt envelope. Stage 1 diastolic dysfunction. Ordering Physician: Joseph Stahl Referring Physician: Su Thomas M.D. Performed By: Brennen Lauren RCS
== END | disposition home or self-care (01) ==
PROVIDERS: PCP Internal Medicine; Referring Provider Internal Medicine Cardiovascular Disease; Visit Provider Internal Medicine Cardiovascular Disease
DX: I25.5 Ischemic cardiomyopathy (principal); R07.89 Other chest pain
CPT/HCPCS: 93306; Q9957; A4216; C8929

== ENCOUNTER → 2022-01-03 | Outpatient (CLI) | payer MEDICARE, MEDICAID, SELFPAY ==
[2022-01-05 14:41] LABS: Mucous, Urine 0 SEEN /hpf (<or=2+); Red Blood Cells-Urine 0 SEEN /hpf (0-5)
[2022-01-05 14:47] LABS: Color, Urine Yellow (Yellow); Glucose, Dipstick 1000 mg/dl (Normal); Ketone-Dipstick Negative (Negative); Leukocyte Esterase-Dipstick 500 /ul (Negative); Nitrite-Dipstick Negative (Negative); Occult Blood-Urine 10 /ul (Negative); Protein-Dipstick Negative (Negative); Urine Bilirubin Dipstick Negative (Negative); Urine Clarity Clear (Clear); Urine Urobilinogen Normal (Normal); Urine pH 6.5 (5.0 - 8.0)
[2022-01-05 15:06] LABS: Bacteria 1+ /hpf (None Seen); Squamous Epithelial Cells - UA 0-5 SEEN /hpf (5-10); White Blood Cells 5-10 SEEN /hpf (0-5)
== END | disposition home or self-care (01) ==
PROVIDERS: PCP Internal Medicine; Visit Provider Physician Assistant Surgical
DX: N39.0 Urinary tract infection, site not specified (principal); R39.15 Urgency of urination
CPT/HCPCS: 81001; 87077; 87086; 87088; 87186

== ENCOUNTER → 2022-01-30 | Outpatient (CLI) | payer MEDICARE, MEDICAID, SELFPAY ==
--- NOTE | 2022-01-30 14:28 | US_ITS ---
STUDY: ULTRASOUND TRANSVAGINAL CLINICAL: Female, 76 years old. Pelvic pressure in female. History of hysterectomy and oophorectomy. Patient is uncertain as to which ovary is absent. TECHNIQUE: Transvaginal COMPARISON: CT of the abdomen and pelvis, October 17, 2018. FINDINGS: The uterus is surgically absent. The ovaries are not visualized. There is no evidence of adnexal mass or fluid collection. There is no free fluid in the pelvis. Polycystic ovary disease: No. Normal visualized urinary bladder. US/Transvaginal Non- IMPRESSION: 1. Status post hysterectomy and unilateral oophorectomy by patient history. Neither the uterus or either ovary is seen. Review of the CT of 2019 fails to demonstrate findings suggestive of a retained ovary. 2. No evidence of pelvic mass or fluid collection. Electronically Signed: Miles Garcia DO at 16:03 EDT ,
== END | disposition home or self-care (01) ==
LOC: OPUS 14:26
PROVIDERS: PCP Internal Medicine; Visit Provider Internal Medicine
DX: R10.2 Pelvic and perineal pain (principal); Z90.710 Acquired absence of both cervix and uterus
CPT/HCPCS: 76830

== ENCOUNTER 2022-03-08 20:21 | Observation (INO) | payer MEDICARE, MEDICAID, SELFPAY ==
[2022-03-08 20:21] VITALS: BP 188/117; PULSE 54; RESP 16; TEMP 36.8; O2SAT 97; BMI 30.8
--- NOTE | 2022-03-08 20:50 | EX.ED.VISEXT ---
HPI History of Present Illness HPI Narrative: Cat bite left hand with pain and swelling left index finger at MCP. Chief Complaint: Bite Informant: patient Occured/Mechanism Mechanism/Context: Yes injury Onset/Context/Timing Onset: Today and Hours Context: Sudden Onset Timing: Continuous Quality of Pain: Sharp Current Severity: Mild Maximum Severity: Mild Associated Symptoms Associated Symptoms: Negative for Parasthesia, Weakness or Loss of Funtion Narrative Narrative: 76-year-old female history of diabetes on Plavix due to cardiac stents. She has a cat at home she was petting the cat when she stopped petting it to Get agitated and bit her left hand several times and scratched her and bit her along her left forearm. She went to an urgent care and I did prescribe her for Augmentin. She could not get any pharmacy to get that obtained. She was concerned and came here to have this evaluated. Patient is left-hand dominant. Prior similar symptoms: No Recent Illness/Hospitalization: No ROS ROS ED ROS Narrative Denies recent illness. Review of Systems ROS Unobtainable: Denies due to encephalopathy Constitutional Constitutional ED: Denies chills or fever(s) Eyes Eyes: Denies blurry vision ENT ENT ED: Denies ear pain Cardiovascular Cardiovascular: Denies chest pain or palpitations Respiratory/Chest Respiratory/Chest: Denies cough or dyspnea Gastrointestinal Gastrointestinal: Denies abdominal pain Genitourinary Genitourinary ED: Denies dysuria or hematuria Musculoskeletal Musculoskeletal: Denies arthralgias Integumentary Denies abscess or Abrasions Neurologic Neurologic: Denies headache(s) Psychiatric Psychiatric: Denies anxiety or depression Endocrine Endocrinology: Denies polydipsia Hematologic/Lymphatic Hematologic/Lymphatic: Denies easy bleeding or easy bruising Allergic/Immunologic Allergic/Immunologic ED: Denies mouth swelling or tongue swelling [facility] Medical History Allergic rhinitis Ambulates with cane Anxiety Arthritis Asthma 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 Back pain Cardiology follow-up encounter COVID-19 Depressive disorder Diabetes Diabetic neuropathy Dyspepsia Essential hypertension Fibromyalgia Hearing loss High cholesterol History of echocardiogram History of heart attack History of rheumatic fever History of steroid therapy History of tachycardia Hyperlipidemia Hypertension Hypothyroidism Insomnia Ischemic cardiomyopathy Left against medical advice (12/19/20) Obesity Osteoarthritis Rheumatoid arthritis Tachycardia Thyroid disease Thyromegaly Varicosities of leg Vitamin D deficiency Walker as ambulation aid Wears dentures Wears glasses Wears hearing aid Home Medications azelastine 137 mcg (0.1 %) nasal spray aerosol 1 spray intranasal BID 01/29/18 [History Last Taken 12/19/20] loratadine 10 mg tablet (Claritin) 10 mg PO DAILY 01/29/18 [History Last Taken 12/18/20] losartan 50 mg tablet 50 mg PO DAILY 01/29/18 [History Last Taken 05/27/21 50 MG] cascara sagrada 450 mg capsule 450 mg PO BID SUPPLEMENT 12/19/20 [History Last Taken 12/18/20] levothyroxine 100 mcg tablet 50 mcg PO QODAY THYROID 12/19/20 [History Last Taken 05/27/21 50 mcg] montelukast 5 mg chewable tablet 5 mg PO QHS ALLERGIES 12/19/20 [History Last Taken 12/19/20] fluticasone propionate 220 mcg/actuation HFA aerosol inhaler (Flovent HFA) 1 puff inhalation QODAY 02/28/21 [History Last Taken Unknown] levothyroxine 100 mcg tablet 100 mcg PO Q OTHER DAY 02/28/21 [History Last Taken Unknown] tramadol 50 mg tablet 25 mg PO DAILY PRN Pain, Moderate 02/28/21 [History Last Taken Unknown] aspirin 81 mg tablet,delayed release 81 mg PO 1700 05/22/21 [History Last Taken 05/23/21] ergocalciferol (vitamin D2) 1,250 mcg (50,000 unit) capsule 50,000 unit PO 2XW 05/28/21 [History Last Taken Unknown] fluticasone propionate 50 mcg/actuation nasal spray,suspension 1 spray intranasal BID 05/28/21 [History Last Taken Unknown] potassium chloride 10 mEq tablet,extended release(part/cryst) 10 meq PO DAILY 05/28/21 [History Last Taken Unknown] dapagliflozin 10 mg tablet (Farxiga) 10 mg PO DAILY per Dr. Thomas 10/08/21 [History Last Taken Unknown] fluorometholone 0.1 % eye drops,suspension 1 drp EACH EYE BID eye drops 10/09/21 [History Last Taken 10/08/21] amiodarone 200 mg tablet 200 mg PO DAILY #30 tabs 10/29/21 [Rx Last Taken Unknown] olopatadine 0.2 % eye drops 1 drp ophthalmic (eye) BID 10/29/21 [History Last Taken Unknown] Food drops 3 drp sublingual DAILY 12/05/21 [History Last Taken Unknown] Melaleuca Peak Sr [facility] PO BID 12/05/21 [History Last Taken Unknown] zyflamend 1 cap PO BID 12/05/21 [History Last Taken Unknown] clopidogrel 75 mg tablet (Plavix) 75 mg PO QDAY #90 tabs 12/09/21 [Rx Last Taken Unknown] metoprolol tartrate 25 mg tablet 25 mg PO BID #180 tabs 12/09/21 [Rx Last Taken Unknown] furosemide 20 mg tablet 20 mg PO DAILY PRN edema #90 tabs 12/27/21 [Rx Last Taken Unknown] pravastatin 40 mg tablet 40 mg PO QHS #90 tabs 02/24/22 [Rx Last Taken Unknown] Allergy/AdvReac Type Severity Reaction Status Date / Time aspirin Allergy Intermediate heart Verified 03/08/22 20:24 races, dizziness povidone-iodine Allergy Intermediate rash Verified 03/08/22 20:24 [From Betadine] soap [From Betadine] Allergy Intermediate rash Verified 03/08/22 20:24 amitriptyline Allergy Unknown Unknown Verified 03/08/22 20:24 doxepin Allergy Unknown unknown Verified 03/08/22 20:24 guaifenesin [From Entex LA] Allergy Unknown Unknown Verified 03/08/22 20:24 latex Allergy Unknown Unknown Verified 03/08/22 20:24 phenylephrine [From Entex LA] Allergy Unknown Unknown Verified 03/08/22 20:24 phenylpropanolamine Allergy Unknown Unknown Verified 03/08/22 20:24 [From Entex LA] pseudoephedrine Allergy Unknown Unknown Verified 03/08/22 20:24 Sulfa (Sulfonamide Allergy Unknown Unknown Verified 03/08/22 20:24 Antibiotics) Family History Father Asthma Diabetes High cholesterol Heart disease Hypertension Mother Arthritis Diabetes Heart disease Hypertension Sister Arthritis Lupus Brother Arthritis Surgical History History of cardiac catheterization History of colonoscopy (05/27/21) History of coronary artery stent placement (10/14/21) History of coronary artery stent placement History of hysterectomy History of repair of rectocele Social History household members: spouse Smoking Status: Never smoker alcohol intake: never substance use type: does not use EXAM Physical Exam Narrative Exam Narrative: 68-year-old female no acute distress. Vital signs stable. Afebrile. Does not look septic or toxic. H EENT exam unremarkable. Moist Riis membranes. Lungs clear to auscultation. Heart regular rhythm rate about 60. Abdomen soft nontender. Moving all 4 extremities. Chronic arthritis in both hands. Her left index finger and MCP is red and swollen and tender. Consistent with a recent cat bite with early infection. No tenosynovitis. No lymphangitic streaking. There are also multiple wounds along the dorsum of her left forearm that are bites and scratches. Those do not appear to be infected at this time. Const Vital Signs: 03/08/22 20:21 Temperature 98.2 F Temperature Source Temporal Pulse Rate 54 L Respiratory Rate 16 Blood Pressure 188/117 H Blood Pressure Mean 140 Pulse Ox 97 Oxygen Delivery Method Room Air Positive well nourished, well developed and obese; Negative for cachectic, contractures or unkempt General Appearance ED: well developed and NAD; Negative for unkempt, cachectic or contractures Nutritional Appearance: obese; Negative for cachectic HEENT Reports moist mucous membranes normocephalic and atraumatic; Negative for trauma or tenderness Eyes EOMs intact bilaterally General Eye ED: Negative for other Neck full ROM and no lymphadenopathy General: Negative for tenderness Resp normal respiratory effort and clear to auscultation bilaterally Effort and Inspection: Negative for other Auscultation: Negative for rales, rhonchi or wheezes Cardio regular rate, regular rhythm, S1 normal heart sound, S2 normal heart sound and no murmurs Jugular Venous Distention: Negative for other GI non-tender, non-distended and no masses Inspection: Negative for abdominal distention Auscultation: normoactive bowel sounds Palpation: soft; Negative for tender or guarding Back/Spine no CVA tenderness General Back: Negative for CVA tenderness Cervical Spine: Negative for cervical spine tenderness Thoracic Spine / Upper Back: Negative for thoracic spinal tenderness Lumbar Spine / Lower Back: Negative for lumbar spinal tenderness Extremity normal to inspection and full ROM Extremity Narrative: Except left hand. Cat bite left index finger at the MCP. Is tender and swollen. Discolored. Discomfort with range of motion. No tenosynovitis no streaks. Multiple wounds along the left forearm both palmar and primarily dorsal side. No redness or warmth. No streaks. The forearm does not appear to be infected. General Extremety ED: Yes edema and tenderness; Negative for deformity General Extremity: edema; Negative for deformity Neuro oriented x3 Sensorium / Orientation: alert, oriented to person, oriented to place and oriented to time; Negative for orientation impaired, confused, lethargic or stuporous Motor Exam: strength 5/5 throughout Psych mental status grossly normal and thought process normal Appearance: Negative for unkempt Attitude: No agitated Mood & Affect: Negative for anxious Skin Skin Narrative: Cat bite and wounds and scratches to the left hand and forearm. Rashes: No no rashes Trauma: Negative for abrasion MDM MDM MDM Narrative Medical decision making narrative: Diabetic female, [id number] with cat bites around noon today appear to be infected on the left index finger at the MCP. She will be started on IV Unasyn. Screening labs being obtained. Repeat exam patient doing well at 10:40 PM. Finger does not look any worse. Swelling is no worse. There is no lymphangitic streaking. Discussed with patient and her plan will be to admit her for IV antibiotics and reevaluation tomorrow. At this time she has no signs of needing any type of surgical intervention. Lab Data Attestation: I reviewed the patient's lab results. Lab results narrative: CBC 12.3. H&H of 15 and 46. Electrolytes unremarkable gap of 4. BUN 25 creatinine 1.54. Glucose 146. Labs: Laboratory Results - last 24 hr 03/08/22 03/08/22 21:02 21:02 WBC 12.3 H RBC 5.04 Hgb 15.0 Hct 46.1 MCV 91.5 MCH 29.8 MCHC 32.5 RDW Std Deviation 49.1 H RDW Coeff of Manas 14.6 Plt Count 292 MPV 9.5 Immature Gran % (Auto) 0.300 Neut % (Auto) 69.9 Lymph % (Auto) 18.4 L Hutchinson % (Auto) 9.1 Eos % (Auto) 1.6 Baso % (Auto) 0.7 Absolute Neuts (auto) 8.6 H Absolute Lymphs (auto) 2.26 Nucleated RBC % 0 Sodium 140 Potassium 4.0 Chloride 108 H Carbon Dioxide 28.0 Anion Gap 4 L BUN 25 H Creatinine 1.54 H Estim Creat Clear Calc 22.72 Est GFR (MDRD) Af Amer 42 L Est GFR (MDRD) Non-Af 35 L BUN/Creatinine Ratio 16.2 Glucose 146 H Calcium 9.3 Discharge Plan Triage Chief Complaint: Bite ED Provider: Arsenio Johnston Dx/Rx/DC Orders Clinical Impression: Cat bite of hand, History of coronary artery disease, History of diabetes mellitus, Cat bite of left foot with infection Prescriptions: No Action losartan 50 mg tablet 50 mg PO DAILY azelastine 137 mcg (0.1 %) aerosol,spray 1 spray INTRANASAL BID loratadine [Claritin] 10 mg tablet 10 mg PO DAILY Flovent HFA 220 mcg/actuation HFA aerosol inhaler 1 puff inhalation QODAY levothyroxine 100 mcg tablet 100 mcg PO Q OTHER DAY Rx Instructions: Alternate 50 mcg with 100 mcg tramadol 50 mg tablet 25 mg PO DAILY PRN (Reason: Pain, Moderate) potassium chloride 10 mEq tablet,ER particles/crystals 10 meq PO DAILY ergocalciferol (vitamin D2) 1,250 mcg (50,000 unit) capsule 50,000 unit PO 2XW Food drops 3 drp sublingual DAILY Melaleuca Peak Sr [facility] PO BID zyflamend 1 cap PO BID olopatadine 0.2 % drops 1 drp ophthalmic (eye) BID amiodarone 200 mg tablet 200 mg PO DAILY Qty: 30 0RF cascara sagrada 450 mg Capsule 450 mg PO BID montelukast 5 mg tablet,chewable 5 mg PO QHS Label Comments: CHEW AND SWALLOW 1 TABLET BY MOUTH ONCE DAILY levothyroxine 100 mcg tablet 50 mcg PO QODAY fluticasone propionate 50 mcg/actuation spray,suspension 1 spray INTRANASAL BID aspirin 81 mg tablet,delayed release (DR/EC) 81 mg PO 1700 fluorometholone 0.1 % Drops,Suspension 1 drp EACH EYE BID Farxiga 10 mg tablet 10 mg PO DAILY clopidogrel [Plavix] 75 mg tablet 75 mg PO QDAY Qty: 90 3RF metoprolol tartrate 25 mg tablet 25 mg PO BID Qty: 180 3RF furosemide 20 mg tablet 20 mg PO DAILY PRN (Reason: edema) Qty: 90 3RF pravastatin 40 mg tablet 40 mg PO QHS Qty: 90 3RF Primary Care Provider: Su Thomas Referrals: Su Thomas DO [Primary Care Provider] - Disposition Disposition: Acute Care Hospital [facility]
[2022-03-08 21:22] LABS: Anion Gap 4 (5-15); BUN 25 mg/dL (7-18); BUN/Creat Ratio 16.2 RATIO (10-20); Calcium,Total 9.3 mg/dL (8.5-10.1); Chloride 108 mmol/L (98-107); Creatinine, Serum 1.54 mg/dL (0.55-1.02); EST Glomerular Filtration Rate 35 mL/min (>60); Est Glom Filt Rate - Afr Amer 42 mL/min (>60); Estimated Creatinine Clearance 22.72 ml/min; Glucose 146 mg/dL (74-106); Sodium Level 140 mmol/L (136-145)
[2022-03-08 21:39] LABS: Absolute Lymphocyte Count 2.26 X10^3/uL (0.83-4.51); Absolute Neutrophil Count 8.6 X10^3/uL (2.0-7.7); Basophil# 0.08 X10^3/uL; Basophil% 0.7 % (0-1); Eosinophils% 1.6 % (0-5); Hematocrit 46.1 % (37-47); Lymphocyte # 2.26 X10^3/ul (0.83-4.51); Lymphocyte % 18.4 % (19-41); Mean Corp Hgb Conc 32.5 g/dL (32-36); Mean Corpuscular Hgb 29.8 pg (27.0-32.0); Mean Corpuscular Volume 91.5 fL (81-99); Mean Platelet Vol. 9.5 fl (6.2-12.0); Monocyte# 1.12 X10^3/uL; Monocyte% 9.1 % (0-10); NRBC Flagged by Analyzer 0 % (0-5); Neutrophil # 8.57 X10^3/uL (2.7-7.7); Neutrophil % 69.9 % (47-70); Platelet Count 292 K/mm3 (150-450); RBC Distribution Width CV 14.6 % (11.6-14.6); RBC Distribution Width SD 49.1 fl (35.1-43.9); Red Blood Count 5.04 M/mm3 (4.2-5.4); White Blood Count 12.3 K/mm3 (4.4-11.0)
--- NOTE | 2022-03-08 22:40 | PCM.HP.STD ---
HPI - General General Date of Admission: 03/08/22 Date of Service: 03/08/22 Chief Complaint: Cat bite HPI Narrative CHIRAG RUFFIN, is a 76 F with a significant history of CAD status post stents and on dual antiplatelet therapy; ischemic cardiomyopathy; rheumatoid arthritis; hypothyroidism; and diabetes mellitus who presents to the emergency department with cat bite that happened on the same day of presentation. The cat bit her on the same day of presentation. The cat belongs to her grandson. The cat lives with patient's and her family. The cat likes to be pet on the cheeks. Patient was petting the cat on its cheek and then stopped; apparently provoking the cat to bit her. The cat bit her on the dorsal side of her left hand, in the palm of her left hand and scratched her on the left forearm. Patient went to urgent care and she was given a prescription for Augmentin. However because she could not get the prescription of the Augmentin filled she came to the emergency department. At the emergency department patient was given Unasyn. FORMERLY [facility], [facility] Medical History Allergic rhinitis Ambulates with cane Anxiety Arthritis Asthma Atherosclerotic heart disease of [place] coronary artery without angina pectoris Back pain Cardiology follow-up encounter COVID-19 Depressive disorder Diabetes Diabetic neuropathy Dyspepsia Essential hypertension Fibromyalgia Hearing loss High cholesterol History of echocardiogram History of heart attack History of rheumatic fever History of steroid therapy History of tachycardia Hyperlipidemia Hypertension Hypothyroidism Insomnia Ischemic cardiomyopathy Left against medical advice (12/19/20) Obesity Osteoarthritis Rheumatoid arthritis Tachycardia Thyroid disease Thyromegaly Varicosities of leg Vitamin D deficiency Walker as ambulation aid Wears dentures Wears glasses Wears hearing aid Home Medications azelastine 137 mcg (0.1 %) nasal spray aerosol 1 spray intranasal BID 01/29/18 [History Last Taken 12/19/20] loratadine 10 mg tablet (Claritin) 10 mg PO DAILY 01/29/18 [History Last Taken 12/18/20] losartan 50 mg tablet 50 mg PO DAILY 01/29/18 [History Last Taken 05/27/21 50 MG] cascara sagrada 450 mg capsule 450 mg PO BID SUPPLEMENT 12/19/20 [History Last Taken 12/18/20] levothyroxine 100 mcg tablet 50 mcg PO QODAY THYROID 12/19/20 [History Last Taken 05/27/21 50 mcg] montelukast 5 mg chewable tablet 5 mg PO QHS ALLERGIES 12/19/20 [History Last Taken 12/19/20] fluticasone propionate 220 mcg/actuation HFA aerosol inhaler (Flovent HFA) 1 puff inhalation QODAY 02/28/21 [History Last Taken Unknown] levothyroxine 100 mcg tablet 100 mcg PO Q OTHER DAY 02/28/21 [History Last Taken Unknown] tramadol 50 mg tablet 25 mg PO DAILY PRN Pain, Moderate 02/28/21 [History Last Taken Unknown] aspirin 81 mg tablet,delayed release 81 mg PO 1700 05/22/21 [History Last Taken 05/23/21] ergocalciferol (vitamin D2) 1,250 mcg (50,000 unit) capsule 50,000 unit PO 2XW 05/28/21 [History Last Taken Unknown] fluticasone propionate 50 mcg/actuation nasal spray,suspension 1 spray intranasal BID 05/28/21 [History Last Taken Unknown] potassium chloride 10 mEq tablet,extended release(part/cryst) 10 meq PO DAILY 05/28/21 [History Last Taken Unknown] dapagliflozin 10 mg tablet (Farxiga) 10 mg PO DAILY per Dr. Tohmas 10/08/21 [History Last Taken Unknown] fluorometholone 0.1 % eye drops,suspension 1 drp EACH EYE BID eye drops 10/09/21 [History Last Taken 10/08/21] amiodarone 200 mg tablet 200 mg PO DAILY #30 tabs 10/29/21 [Rx Last Taken Unknown] olopatadine 0.2 % eye drops 1 drp ophthalmic (eye) BID 10/29/21 [History Last Taken Unknown] Food drops 3 drp sublingual DAILY 12/05/21 [History Last Taken Unknown] Melaleuca Peak Sr [facility] PO BID 12/05/21 [History Last Taken Unknown] zyflamend 1 cap PO BID 12/05/21 [History Last Taken Unknown] clopidogrel 75 mg tablet (Plavix) 75 mg PO QDAY #90 tabs 12/09/21 [Rx Last Taken Unknown] metoprolol tartrate 25 mg tablet 25 mg PO BID #180 tabs 12/09/21 [Rx Last Taken Unknown] furosemide 20 mg tablet 20 mg PO DAILY PRN edema #90 tabs 12/27/21 [Rx Last Taken Unknown] pravastatin 40 mg tablet 40 mg PO QHS #90 tabs 02/24/22 [Rx Last Taken Unknown] Allergy/AdvReac Type Severity Reaction Status Date / Time aspirin Allergy Intermediate heart Verified 03/08/22 20:24 races, dizziness povidone-iodine Allergy Intermediate rash Verified 03/08/22 20:24 [From Betadine] soap [From Betadine] Allergy Intermediate rash Verified 03/08/22 20:24 amitriptyline Allergy Unknown Unknown Verified 03/08/22 20:24 doxepin Allergy Unknown unknown Verified 03/08/22 20:24 guaifenesin [From Entex LA] Allergy Unknown Unknown Verified 03/08/22 20:24 latex Allergy Unknown Unknown Verified 03/08/22 20:24 phenylephrine [From Entex LA] Allergy Unknown Unknown Verified 03/08/22 20:24 phenylpropanolamine Allergy Unknown Unknown Verified 03/08/22 20:24 [From Entex LA] pseudoephedrine Allergy Unknown Unknown Verified 03/08/22 20:24 Sulfa (Sulfonamide Allergy Unknown Unknown Verified 03/08/22 20:24 Antibiotics) Family History Father Asthma Diabetes High cholesterol Heart disease Hypertension Mother Arthritis Diabetes Heart disease Hypertension Sister Arthritis Lupus Brother Arthritis Surgical History History of cardiac catheterization History of colonoscopy (05/27/21) History of coronary artery stent placement (10/14/21) History of coronary artery stent placement History of hysterectomy History of repair of rectocele Social History household members: spouse Smoking Status: Never smoker alcohol intake: never substance use type: does not use ROS ROS Narrative Pertinent positives and pertinent negatives as noted in HPI. All other systems were reviewed and are negative Vital Signs Vital Signs Vital Signs: 03/08/22 20:21 Temperature 98.2 F Temperature Source Temporal Pulse Rate 54 L Respiratory Rate 16 Blood Pressure 188/117 H Blood Pressure Mean 140 Pulse Ox 97 Oxygen Delivery Method Room Air Weight Weight: 73.936 kg Body Mass Index (BMI) 30.8 Physical Exam Narrative Physical exam: General: Well-nourished, well-developed. Head: Normocephalic, atraumatic, no tenderness Eyes: Vision is grossly intact. EOMI ENT, no trauma, moist mucous membranes, no rhinorrhea Neck: Nontender, No thyromegaly. CVS: Regular rate and rhythm. S1-S2 present. No murmur, gallop or rub. Respiratory : clear to auscultation bilaterally, chest wall nontender, no wheezing Abdomen: Soft, nontender, nondistended, normal bowel sounds, no masses : Deferred Back: Nontender, no CVA tenderness, no midline spinal tenderness, deformities, step-offs Extremities: Metacarpal of left index finger erythematous and tender. Scratch knutson on left forearm. No erythema or tenderness of right metacarpals and right forearm. Skin: Normal color, no trauma, abrasions Neuro: Alert, oriented, cranial nerves II through XII grossly intact. Psychiatry: Normal mood. Normal affect. Not depressed. Not anxious. Results Lab / Micro Data Result Diagrams: 03/08/22 21:02 03/08/22 21:02 Labs: Laboratory Results - last 24 hr 03/08/22 21:02: WBC 12.3 H, RBC 5.04, Hgb 15.0, Hct 46.1, MCV 91.5, MCH 29.8, MCHC 32.5, RDW Std Deviation 49.1 H, RDW Coeff of Manas 14.6, Plt Count 292, MPV 9.5, Immature Gran % (Auto) 0.300, Neut % (Auto) 69.9, Lymph % (Auto) 18.4 L, Door % (Auto) 9.1, Eos % (Auto) 1.6, Baso % (Auto) 0.7, Absolute Neuts (auto) 8.6 H, Absolute Lymphs (auto) 2.26, Nucleated RBC % 0 03/08/22 21:02: Sodium 140, Potassium 4.0, Chloride 108 H, Carbon Dioxide 28.0, Anion Gap 4 L, BUN 25 H, Creatinine 1.54 H, Estim Creat Clear Calc 22.72, Est GFR (MDRD) Af Amer 42 L, Est GFR (MDRD) Non-Af 35 L, BUN/Creatinine Ratio 16.2, Glucose 146 H, Calcium 9.3 Assessment & Plan Assessment/Plan (1) Cat bite of hand: (2) JAYCE (acute kidney injury): (3) Takotsubo cardiomyopathy: PLAN: Plan Cat bite of hand CBC showed white count of 12.3. Trend CBC Unasyn started emergency department and continued. Unasyn dose adjusted by creatinine clearance. JAYCE on chronic kidney disease stage II CKD Likely from Diabetic nephropathy Baseline creatinine of around 1. Creatinine on presentation was 1.54. BUN is 25. BUN over creatinine is 16.2. Gentle IV hydration ordered. Trend BMP. Avoid nephrotoxic's. Diabetes mellitus Patient with hyperglycemia on presentation Home dapagliflozin continued Monitor Accu-Cheks Correction scale insulin ordered. Hypertension Blood pressure is not within goal Metoprolol continued. Losartan held secondary to JAYCE. As needed hydralazine ordered. Trend blood pressure and adjust blood pressure medications. Ischemic cardiomyopathy/Takotsubo cardiomyopathy Echocardiogram on 11/29/2021 showed stage I diastolic dysfunction. EF was 50%. Stable. DVT prophylaxis Subcutaneous Lovenox ordered. Charges/Coding Visit Charges Inpatient E&M: 09192 Init Hosp L3
[2022-03-08 23:16] VITALS: BP 138/63; PULSE 54; RESP 15; TEMP 36.6; O2SAT 95
[2022-03-08 23:56] VITALS: BP 176/51; PULSE 54; RESP 18; TEMP 36.9; O2SAT 98
[2022-03-08 23:58] VITALS: BMI 30.9
[2022-03-09] MEDS: 0.9% Saline Lock 10 ML Syringe IV (00:41)
[2022-03-09] MEDS: 0.9% Normal Saline 1,000 ML 100 ML IV (00:41)
[2022-03-09 01:07] VITALS: BP 170/64; PULSE 60; RESP 18; TEMP 36.9; O2SAT 98
[2022-03-09] MEDS: Pravastatin 40 MG Tablet PO (01:14)
[2022-03-09] MEDS: Montelukast 10 MG Tablet 5 MG PO (01:15)
[2022-03-09 01:17] VITALS: BP 170/64; PULSE 60
[2022-03-09] MEDS: hydrALAZINE 20 MG/ML Vial 5 MG IV (01:17)
[2022-03-09] MEDS: Acetaminophen 325 MG Tablet 650 MG PO (01:18)
[2022-03-09] MEDS: Azelastine HCl NASAL.SRY 1 SPRAY NASAL ×2 (01:18→07:56)
[2022-03-09] MEDS: Fluticasone 0.05% 1 SPRAY NASAL.SRY NASAL ×2 (01:19→07:56)
[2022-03-09 06:00] VITALS: BP 133/48; PULSE 60; RESP 16; TEMP 36.9; O2SAT 95
[2022-03-09 06:04] LABS: Absolute Lymphocyte Count 2.22 X10^3/uL (0.83-4.51); Absolute Neutrophil Count 6.9 X10^3/uL (2.0-7.7); Basophil# 0.04 X10^3/uL; Basophil% 0.4 % (0-1); Eosinophil# 0.16 X10^3/uL; Eosinophils% 1.5 % (0-5); Hematocrit 42.4 % (37-47); Hemoglobin 14.2 g/dL (12.0-15.0); Lymphocyte # 2.22 X10^3/ul (0.83-4.51); Lymphocyte % 21.3 % (19-41); Mean Corp Hgb Conc 33.5 g/dL (32-36); Mean Corpuscular Hgb 30.7 pg (27.0-32.0); Mean Corpuscular Volume 91.8 fL (81-99); Mean Platelet Vol. 9.6 fl (6.2-12.0); Monocyte# 1.07 X10^3/uL; Monocyte% 10.3 % (0-10); NRBC Flagged by Analyzer 0 % (0-5); Neutrophil # 6.92 X10^3/uL (2.7-7.7); Neutrophil % 66.3 % (47-70); Platelet Count 305 K/mm3 (150-450); RBC Distribution Width CV 14.8 % (11.6-14.6); RBC Distribution Width SD 50.2 fl (35.1-43.9); Red Blood Count 4.62 M/mm3 (4.2-5.4); White Blood Count 10.4 K/mm3 (4.4-11.0)
[2022-03-09 06:32] LABS: Anion Gap 7 (5-15); BUN 23 mg/dL (7-18); BUN/Creat Ratio 19.2 RATIO (10-20); Calcium,Total 8.7 mg/dL (8.5-10.1); Chloride 108 mmol/L (98-107); EST Glomerular Filtration Rate 46 mL/min (>60); Est Glom Filt Rate - Afr Amer 56 mL/min (>60); Estimated Creatinine Clearance 29.16 ml/min; Glucose 145 mg/dL (74-106); Potassium 3.4 mmol/L (3.5-5.1); Sodium Level 140 mmol/L (136-145)
[2022-03-09] MEDS: Levothyroxine 100 MCG Tablet PO (06:35)
[2022-03-09 06:55] LABS: Bedside Glucose 121 mg/dL (74-106)
--- NOTE | 2022-03-09 07:19 | PCM.PN.HOSP ---
Subjective Subjective Left hand is doing better. States that she was bitten by her own pet cat around noon yesterday. Went to urgent care and was given a prescription for Augmentin that went to 2 different pharmacies both pharmacies were closed so she presented to the emergency room as it got more tender. Today, her swelling is doing much better though bottom turning lathe tender. She states her cat has had its appropriate vaccinations. Objective Data Objective Data Vital Signs: Vital Signs Temp Pulse Resp BP Pulse Ox O2 Del Method 36.9 C 60 16 133/48 H 95 Room Air 03/09/22 06:00 03/09/22 06:00 03/09/22 06:00 03/09/22 06:00 03/09/22 06:00 03/09/22 06:00 Oxygen Delivery Method Room Air Weight: 74.4 kg Body Mass Index (BMI) 30.9 Intake & Output: Intake and Output for Last 24 Hours 03/07/22 03/08/22 03/09/22 23:59 23:59 23:59 Intake Total 112 / 112 Balance 112 / 112 Lab / Micro Data Result Diagrams: 03/09/22 04:38 03/09/22 04:38 Labs: Laboratory Results - last 24 hr 03/08/22 21:02: WBC 12.3 H, RBC 5.04, Hgb 15.0, Hct 46.1, MCV 91.5, MCH 29.8, MCHC 32.5, RDW Std Deviation 49.1 H, RDW Coeff of Manas 14.6, Plt Count 292, MPV 9.5, Immature Gran % (Auto) 0.300, Neut % (Auto) 69.9, Lymph % (Auto) 18.4 L, [place] % (Auto) 9.1, Eos % (Auto) 1.6, Baso % (Auto) 0.7, Absolute Neuts (auto) 8.6 H, Absolute Lymphs (auto) 2.26, Nucleated RBC % 0 03/08/22 21:02: Sodium 140, Potassium 4.0, Chloride 108 H, Carbon Dioxide 28.0, Anion Gap 4 L, BUN 25 H, Creatinine 1.54 H, Estim Creat Clear Calc 22.72, Est GFR (MDRD) Af Amer 42 L, Est GFR (MDRD) Non-Af 35 L, BUN/Creatinine Ratio 16.2, Glucose 146 H, Calcium 9.3 03/09/22 04:38: WBC 10.4, RBC 4.62, Hgb 14.2, Hct 42.4, MCV 91.8, MCH 30.7, MCHC 33.5, RDW Std Deviation 50.2 H, RDW Coeff of Manas 14.8 H, Plt Count 305, MPV 9.6, Immature Gran % (Auto) 0.200, Neut % (Auto) 66.3, Lymph % (Auto) 21.3, [place] % (Auto) 10.3 H, Eos % (Auto) 1.5, Baso % (Auto) 0.4, Absolute Neuts (auto) 6.9, Absolute Lymphs (auto) 2.22, Nucleated RBC % 0 03/09/22 04:38: Sodium 140, Potassium 3.4 L, Chloride 108 H, Carbon Dioxide 25.0, Anion Gap 7, BUN 23 H, Creatinine 1.20 H, Estim Creat Clear Calc 29.16, Est GFR (MDRD) Af Amer 56 L, Est GFR (MDRD) Non-Af 46 L, BUN/Creatinine Ratio 19.2, Glucose 145 H, Calcium 8.7 03/09/22 06:33: POC Glucose 121 H Physical Exam Const alert and no apparent distress Extremity Extremity Narrative: Left hand has some swelling at the right index PIP with some swelling. Erythema is withdrawn from the lines of demarcation. Assessment & Plan Assessment/Plan (1) Cat bite of hand: PLAN: Cat bite of hand Given the rapid onset, would be concerned about staph infection. Will discharge patient with cefazolin and doxycycline. Patient advised to keep her hand elevated while at rest. (2) JAYCE (acute kidney injury): PLAN: Resolved (3) Takotsubo cardiomyopathy: PLAN: Continue with furosemide PLAN: Plan Diabetes mellitus Patient with hyperglycemia on presentation Home dapagliflozin continued Monitor Accu-Cheks Correction scale insulin ordered. Hypertension Blood pressure is not within goal Metoprolol continued. Losartan held secondary to JAYCE. As needed hydralazine ordered. Trend blood pressure and adjust blood pressure medications. Ischemic cardiomyopathy/Takotsubo cardiomyopathy Echocardiogram on 11/29/2021 showed stage I diastolic dysfunction. EF was 50%. Stable.
[2022-03-09] MEDS: Amiodarone 200 MG Tablet PO (07:56)
[2022-03-09] MEDS: Empagliflozin 25 MG Tablet PO (07:57)
[2022-03-09] MEDS: Clopidogrel Bisulfate 75 MG Tablet PO (07:57)
[2022-03-09 07:58] VITALS: BP 123/76; PULSE 64
[2022-03-09] MEDS: Metoprolol Tartrate 25 MG Tablet PO (07:58)
[2022-03-09 07:59] VITALS: PULSE 60; RESP 18; O2SAT 98
[2022-03-09] MEDS: Enoxaparin 30 MG/0.3 ML Syringe SC (07:59)
--- NOTE | 2022-03-09 08:42 | DCINST_ITS ---
Discharge Instructions Diet Discharge Diet: Low fat / Low cholesterol Dressing / Incision Call your doctor if your incision/area has: Continuous Slow Oozing, Increased Pain/ Swelling, Increased Redness and Foul Smelling Discharge Follow Up Care Test Results: Test results from this visit will be discussed in further detail at your follow- up appointment, if applicable. Discharge Plan Admission Admit Date/Time: 03/08/22 22:41 Primary Reason for Your Visit: left hand cat bit and cellulitis Attending Provider: Facundo Bermudez Primary Care Provider: Su Thomas Consulting Providers: Alexander Salazar Instructions Additional Instructions / Restrictions: keep left hand elevated until infection resolves. Discharge Orders/Prescriptions Prescriptions: New cephalexin 500 mg capsule 500 mg PO Q8H Qty: 21 0RF doxycycline hyclate 100 mg capsule 100 mg PO BID Qty: 10 0RF Continued losartan 50 mg tablet 50 mg PO DAILY azelastine 137 mcg (0.1 %) aerosol,spray 1 spray INTRANASAL BID loratadine [Claritin] 10 mg tablet 10 mg PO DAILY Flovent HFA 220 mcg/actuation HFA aerosol inhaler 1 puff inhalation QODAY levothyroxine 100 mcg tablet 100 mcg PO Q OTHER DAY Rx Instructions: Alternate 50 mcg with 100 mcg. tramadol 50 mg tablet 25 mg PO DAILY PRN (Reason: Pain, Moderate) potassium chloride 10 mEq tablet,ER particles/crystals 10 meq PO DAILY ergocalciferol (vitamin D2) 1,250 mcg (50,000 unit) capsule 50,000 unit PO SUWE Food drops 3 drp sublingual DAILY Melaleuca Peak Sr [facility] PO BID zyflamend 1 cap PO BID olopatadine 0.2 % drops 1 drp ophthalmic (eye) BID amiodarone 200 mg tablet 200 mg PO DAILY Qty: 30 0RF cascara sagrada 450 mg Capsule 450 mg PO BID montelukast 5 mg tablet,chewable 5 mg PO QHS Label Comments: CHEW AND SWALLOW 1 TABLET BY MOUTH ONCE DAILY levothyroxine 100 mcg tablet 50 mcg PO QODAY fluticasone propionate 50 mcg/actuation spray,suspension 1 spray INTRANASAL BID aspirin 81 mg tablet,delayed release (DR/EC) 81 mg PO 1700 fluorometholone 0.1 % Drops,Suspension 1 drp EACH EYE BID Farxiga 10 mg tablet 10 mg PO DAILY clopidogrel [Plavix] 75 mg tablet 75 mg PO QDAY Qty: 90 3RF metoprolol tartrate 25 mg tablet 25 mg PO BID Qty: 180 3RF furosemide 20 mg tablet 20 mg PO DAILY PRN (Reason: edema) Qty: 90 3RF pravastatin 40 mg tablet 40 mg PO QHS Qty: 90 3RF Referrals / Follow Up: Su Thomas DO [Primary Care Provider] - Within 1 Week Disposition Disposition (needs filled in before D/C Order can be placed): Home, Self Care
--- NOTE | 2022-03-09 08:48 | PCM.DC.SUM ---
Providers Date of Admission: 03/08/22 Primary Care Physician: Dr. Su Thomas DO Reason For Visit: CAT BITE Diagnosis Discharge Diagnosis (1) Cat bite of hand: Status: Acute Code(s): S61.459A - Open bite of unspecified hand, initial encounter; W55.01XA - Bitten by cat, initial encounter Plan: Cat bite of hand Given the rapid onset, would be concerned about staph infection. Will discharge patient with cefazolin and doxycycline. Patient advised to keep her hand elevated while at rest. (2) JAYCE (acute kidney injury): Status: Acute Code(s): N17.9 - Acute kidney failure, unspecified Plan: Resolved (3) Takotsubo cardiomyopathy: Status: Acute Code(s): I51.81 - Takotsubo syndrome Plan: Continue with furosemide Plan Diabetes mellitus Patient with hyperglycemia on presentation Home dapagliflozin continued Monitor Accu-Cheks Correction scale insulin ordered. Hypertension Blood pressure is not within goal Metoprolol continued. Losartan held secondary to JAYCE. As needed hydralazine ordered. Trend blood pressure and adjust blood pressure medications. Ischemic cardiomyopathy/Takotsubo cardiomyopathy Echocardiogram on 11/29/2021 showed stage I diastolic dysfunction. EF was 50%. Stable. Medications at Discharge Home Medications azelastine 137 mcg (0.1 %) nasal spray aerosol 1 spray intranasal BID 01/29/18 loratadine 10 mg tablet (Claritin) 10 mg PO DAILY 01/29/18 losartan 50 mg tablet 50 mg PO DAILY 01/29/18 cascara sagrada 450 mg capsule 450 mg PO BID SUPPLEMENT 12/19/20 levothyroxine 100 mcg tablet 50 mcg PO QODAY THYROID 12/19/20 montelukast 5 mg chewable tablet 5 mg PO QHS ALLERGIES 12/19/20 fluticasone propionate 220 mcg/actuation HFA aerosol inhaler (Flovent HFA) 1 puff inhalation QODAY 02/28/21 levothyroxine 100 mcg tablet 100 mcg PO Q OTHER DAY 02/28/21 tramadol 50 mg tablet 25 mg PO DAILY PRN Pain, Moderate 02/28/21 aspirin 81 mg tablet,delayed release 81 mg PO 1700 [facility] 05/22/21 ergocalciferol (vitamin D2) 1,250 mcg (50,000 unit) capsule 50,000 unit PO SUWE vitamin 05/28/21 fluticasone propionate 50 mcg/actuation nasal spray,suspension 1 spray intranasal BID 05/28/21 potassium chloride 10 mEq tablet,extended release(part/cryst) 10 meq PO DAILY 05/28/21 dapagliflozin 10 mg tablet (Farxiga) 10 mg PO DAILY per Dr. Thomas 10/08/21 fluorometholone 0.1 % eye drops,suspension 1 drp EACH EYE BID eye drops 10/09/21 amiodarone 200 mg tablet 200 mg PO DAILY #30 tabs 10/29/21 olopatadine 0.2 % eye drops 1 drp ophthalmic (eye) BID 10/29/21 Food drops 3 drp sublingual DAILY 12/05/21 Melaleuca Peak Sr [facility] PO BID 12/05/21 zyflamend 1 cap PO BID neuropathy 12/05/21 clopidogrel 75 mg tablet (Plavix) 75 mg PO QDAY #90 tabs 12/09/21 metoprolol tartrate 25 mg tablet 25 mg PO BID #180 tabs 12/09/21 furosemide 20 mg tablet 20 mg PO DAILY PRN edema #90 tabs 12/27/21 pravastatin 40 mg tablet 40 mg PO QHS #90 tabs 02/24/22 cephalexin 500 mg capsule 500 mg PO Q8H #21 caps 03/09/22 doxycycline hyclate 100 mg capsule 100 mg PO BID #10 caps 03/09/22 Hospital Course Operations None Procedures None Summary of Care Provided Minutes Spent on Discharge: 26 Hospital Course: 5-year-old Female Bitten on the Left Hand by Her Own on the 10th. Noticed swelling relatively immediately. Presented to an urgent care and they sent a prescription to 2 pharmacies for Augmentin. Patient was unable to get the medication because both pharmacies had closed. Swelling got worse so she presented to the emergency room and got admitted. Patient was started on Unasyn. Patient is doing better but still swollen on her hand. Patient will be discharged with cephalexin and doxycycline. Concern for staph infection given the rapid onset. Patient advised to return if things do get worse. Weight / BMI Weight Weight: 74.4 kg Body Mass Index (BMI) 30.9 ABG / Lab / Microbiology Data Result Diagrams: 03/09/22 04:38 03/09/22 04:38 Laboratory: Laboratory Results - last 24 hr 03/08/22 21:02: WBC 12.3 H, RBC 5.04, Hgb 15.0, Hct 46.1, MCV 91.5, MCH 29.8, MCHC 32.5, RDW Std Deviation 49.1 H, RDW Coeff of Manas 14.6, Plt Count 292, MPV 9.5, Immature Gran % (Auto) 0.300, Neut % (Auto) 69.9, Lymph % (Auto) 18.4 L, [place] % (Auto) 9.1, Eos % (Auto) 1.6, Baso % (Auto) 0.7, Absolute Neuts (auto) 8.6 H, Absolute Lymphs (auto) 2.26, Nucleated RBC % 0 03/08/22 21:02: Sodium 140, Potassium 4.0, Chloride 108 H, Carbon Dioxide 28.0, Anion Gap 4 L, BUN 25 H, Creatinine 1.54 H, Estim Creat Clear Calc 22.72, Est GFR (MDRD) Af Amer 42 L, Est GFR (MDRD) Non-Af 35 L, BUN/Creatinine Ratio 16.2, Glucose 146 H, Calcium 9.3 03/09/22 04:38: WBC 10.4, RBC 4.62, Hgb 14.2, Hct 42.4, MCV 91.8, MCH 30.7, MCHC 33.5, RDW Std Deviation 50.2 H, RDW Coeff of Manas 14.8 H, Plt Count 305, MPV 9.6, Immature Gran % (Auto) 0.200, Neut % (Auto) 66.3, Lymph % (Auto) 21.3, [place] % (Auto) 10.3 H, Eos % (Auto) 1.5, Baso % (Auto) 0.4, Absolute Neuts (auto) 6.9, Absolute Lymphs (auto) 2.22, Nucleated RBC % 0 03/09/22 04:38: Sodium 140, Potassium 3.4 L, Chloride 108 H, Carbon Dioxide 25.0, Anion Gap 7, BUN 23 H, Creatinine 1.20 H, Estim Creat Clear Calc 29.16, Est GFR (MDRD) Af Amer 56 L, Est GFR (MDRD) Non-Af 46 L, BUN/Creatinine Ratio 19.2, Glucose 145 H, Calcium 8.7 03/09/22 06:33: POC Glucose 121 H D/C Instructions Discharge Diet: Low fat / Low cholesterol Call your doctor if your incision/area has: Continuous Slow Oozing, Increased Pain/ Swelling, Increased Redness and Foul Smelling Discharge Meaningful Use Info Meaningful Use Diagnoses (Choose all that apply): None applicable Discharge Plan Admission Admit Date/Time: 03/08/22 22:41 Primary Reason for Your Visit: left hand cat bit and cellulitis Attending Provider: Facundo Bermudez Primary Care Provider: Su Thomas Consulting Providers: Alexander Salazar Instructions Additional Instructions / Restrictions: keep left hand elevated until infection resolves. Discharge Orders/Prescriptions Prescriptions: New cephalexin 500 mg capsule 500 mg PO Q8H Qty: 21 0RF doxycycline hyclate 100 mg capsule 100 mg PO BID Qty: 10 0RF Continued losartan 50 mg tablet 50 mg PO DAILY azelastine 137 mcg (0.1 %) aerosol,spray 1 spray INTRANASAL BID loratadine [Claritin] 10 mg tablet 10 mg PO DAILY Flovent HFA 220 mcg/actuation HFA aerosol inhaler 1 puff inhalation QODAY levothyroxine 100 mcg tablet 100 mcg PO Q OTHER DAY Rx Instructions: Alternate 50 mcg with 100 mcg. tramadol 50 mg tablet 25 mg PO DAILY PRN (Reason: Pain, Moderate) potassium chloride 10 mEq tablet,ER particles/crystals 10 meq PO DAILY ergocalciferol (vitamin D2) 1,250 mcg (50,000 unit) capsule 50,000 unit PO SUWE Food drops 3 drp sublingual DAILY Melaleuca Peak Sr [facility] PO BID zyflamend 1 cap PO BID olopatadine 0.2 % drops 1 drp ophthalmic (eye) BID amiodarone 200 mg tablet 200 mg PO DAILY Qty: 30 0RF cascara sagrada 450 mg Capsule 450 mg PO BID montelukast 5 mg tablet,chewable 5 mg PO QHS Label Comments: CHEW AND SWALLOW 1 TABLET BY MOUTH ONCE DAILY levothyroxine 100 mcg tablet 50 mcg PO QODAY fluticasone propionate 50 mcg/actuation spray,suspension 1 spray INTRANASAL BID aspirin 81 mg tablet,delayed release (DR/EC) 81 mg PO 1700 fluorometholone 0.1 % Drops,Suspension 1 drp EACH EYE BID Farxiga 10 mg tablet 10 mg PO DAILY clopidogrel [Plavix] 75 mg tablet 75 mg PO QDAY Qty: 90 3RF metoprolol tartrate 25 mg tablet 25 mg PO BID Qty: 180 3RF furosemide 20 mg tablet 20 mg PO DAILY PRN (Reason: edema) Qty: 90 3RF pravastatin 40 mg tablet 40 mg PO QHS Qty: 90 3RF Referrals / Follow Up: Su Thomas DO [Primary Care Provider] - Within 1 Week Disposition Disposition (needs filled in before D/C Order can be placed): Home, Self Care Charges/Coding Visit Charges OBSV E&M: 35073 Observation care discharge
[2022-03-09] MEDS: Insulin Lispro 100 UNIT/ML INSULN.PEN SC (11:53)
[2022-03-09 12:05] LABS: Bedside Glucose 174 mg/dL (74-106)
== END 2022-03-09 12:27 | disposition home or self-care (01) ==
LOC: ED 22:56 → MS3 23:01
PROVIDERS: Admitting Provider Hospitalist; Emergency Provider Emergency Medicine; PCP Internal Medicine
DX: S51.852A Open bite of left forearm, initial encounter (principal); M06.9 Rheumatoid arthritis, unspecified; E11.40 Type 2 diabetes mellitus with diabetic neuropathy, unspecified; Z86.16 Personal history of COVID-19; I25.10 Atherosclerotic heart disease of native coronary artery without angina pectoris; Z79.82 Long term (current) use of aspirin; Z79.899 Other long term (current) drug therapy; E78.00 Pure hypercholesterolemia, unspecified; I51.81 Takotsubo syndrome; S61.459A Open bite of unspecified hand, initial encounter; E03.9 Hypothyroidism, unspecified; I10 Essential (primary) hypertension; I25.5 Ischemic cardiomyopathy; W55.01XA Bitten by cat, initial encounter; Z79.890 Hormone replacement therapy; M79.7 Fibromyalgia; I25.2 Old myocardial infarction
CPT/HCPCS: 36415; 80048; 82962; 85025; 94640; 96361; 96365; 96372; 96375; 99218; 99283; J7030; A4216; G0378; J0295

== ENCOUNTER 2022-05-15 11:56 | Emergency (ER) | payer MEDICARE, MEDICAID, SELFPAY ==
[2022-05-15 11:58] VITALS: BP 181/86; PULSE 53; RESP 20; TEMP 36.8; O2SAT 94; BMI 33.3
--- NOTE | 2022-05-15 13:06 | CT_ITS ---
HISTORY: head trauma. TECHNIQUE: Multiple axial images were obtained of the head without intravenous contrast. A radiation dose optimization technique was used for this scan. 235 images. COMPARISON: None. FINDINGS: BRAIN PARENCHYMA: Multiple foci and zones of low attenuation in the bilateral cerebral white matter compatible with chronic small vessel ischemic gliosis. No acute intra-axial hemorrhage identified. CSF SPACES: Generalized volume loss. No midline shift or other significant mass effect. No acute extra-axial hemorrhage seen. OTHER: Intact calvarium. Moderate right frontal scalp hematoma. No significant air fluid levels in the paranasal sinuses or mastoid air cells. Unremarkable orbits. CT/Brain/Head without Contrast IMPRESSION: No acute intracranial process identified. Right frontal scalp hematoma. Chronic involutional and white matter changes. Electronically Signed: Angelica Naranjo MD at 13:47 EST ,
--- NOTE | 2022-05-15 13:25 | RAD_ITS ---
HISTORY: pain, trauma. TECHNIQUE: XR Knee Complete 4 Views or More. COMPARISON: 08/02/2021. FINDINGS: BONES : No acute fracture identified. Mineralization unremarkable. JOINTS: No dislocation. Tricompartmental degenerative osteophytes with moderate medial compartment joint space narrowing. Mild joint effusion. SOFT TISSUES: Moderate anterior soft tissue swelling. RAD/Knee 4 or More Views IMPRESSION: No acute fracture or dislocation identified in the right knee. Mild joint effusion with moderate anterior soft tissue swelling, possible prepatellar bursitis. Electronically Signed: Angelica Naranjo MD at 13:48 EST ,
[2022-05-15] MEDS: Acetaminophen 500 MG Tablet 1000 MG PO (13:40)
--- NOTE | 2022-05-15 14:58 | ED.VIS.FALL ---
HPI HPI - Fall History of Present Illness Chief Complaint: Fall Informant: patient Narrative Narrative: Patient is a 74-year-old female with history of osteoarthritis, Takotsubo cardiomyopathy, diabetes mellitus, hypertension, COPD, coronary artery disease and hypothyroid presenting from home after a fall. Patient states she was try to get her pants on and fell off the stool. She hit her head on the bookcase of the right forehead. She also fell on her right knee and initially some pain in her right groin. She denies any loss of conscious. She is not on any blood thinners but does take a daily aspirin. Chart review shows that she takes Plavix. Patient had bleeding from her forehead and came to the ER for further evaluation. Tetanus Immunization: <5 years PFSH PFS Medical History Allergic rhinitis Ambulates with cane Anxiety Arthritis Asthma Back pain Cardiology follow-up encounter COVID-19 Depressive disorder Diabetes Diabetic neuropathy Dyspepsia Essential hypertension Fibromyalgia Hearing loss High cholesterol History of adenomatous polyp of colon History of coronary artery disease History of coronary artery disease History of diabetes mellitus History of diabetes mellitus History of echocardiogram History of heart attack History of rheumatic fever History of steroid therapy History of tachycardia Hyperlipidemia Hypertension Hypothyroidism Insomnia Ischemic cardiomyopathy Left against medical advice (12/19/20) Non-STEMI (non-ST elevated myocardial infarction) (12/13/20) Obesity Osteoarthritis Positive colorectal cancer screening using Cologuard test Rheumatoid arthritis Tachycardia Takotsubo cardiomyopathy Thyroid disease Thyromegaly Varicosities of leg Vitamin D deficiency Walker as ambulation aid Wears dentures Wears glasses Wears hearing aid Home Medications azelastine 137 mcg (0.1 %) nasal spray aerosol 1 spray intranasal BID 01/29/18 [History Last Taken 03/08/22 08:00] loratadine 10 mg tablet (Claritin) 10 mg PO DAILY 01/29/18 [History Last Taken 03/07/22] losartan 50 mg tablet 50 mg PO DAILY 01/29/18 [History Last Taken 03/08/22 08:00] cascara sagrada 450 mg capsule 450 mg PO BID SUPPLEMENT 12/19/20 [History Last Taken 03/08/22 17:00] levothyroxine 100 mcg tablet 50 mcg PO QODAY THYROID 12/19/20 [History Last Taken 03/08/22 07:00] montelukast 5 mg chewable tablet 5 mg PO QHS ALLERGIES 12/19/20 [History Last Taken 03/07/22 23:00] fluticasone propionate 220 mcg/actuation HFA aerosol inhaler (Flovent HFA) 1 puff inhalation QODAY 02/28/21 [History Last Taken 03/08/22 08:00] levothyroxine 100 mcg tablet 100 mcg PO Q OTHER DAY 02/28/21 [History Last Taken 03/07/22 07:00] tramadol 50 mg tablet 25 mg PO DAILY PRN Pain, Moderate 02/28/21 [History Last Taken 03/08/22 17:00 25 mg] aspirin 81 mg tablet,delayed release 81 mg PO 1700 heart health 05/22/21 [History Last Taken 03/08/22 17:00] ergocalciferol (vitamin D2) 1,250 mcg (50,000 unit) capsule 50,000 unit PO SUWE vitamin 05/28/21 [History Last Taken 03/05/22] fluticasone propionate 50 mcg/actuation nasal spray,suspension 1 spray intranasal BID 05/28/21 [History Last Taken 03/08/22 08:00] potassium chloride 10 mEq tablet,extended release(part/cryst) 10 meq PO DAILY 05/28/21 [History Last Taken 03/08/22 08:00] dapagliflozin 10 mg tablet (Farxiga) 10 mg PO DAILY per Dr. Thomas 10/08/21 [History Last Taken 03/08/22 08:00] fluorometholone 0.1 % eye drops,suspension 1 drp EACH EYE BID eye drops 10/09/21 [History Last Taken 03/08/22 08:00] olopatadine 0.2 % eye drops 1 drp ophthalmic (eye) BID 10/29/21 [History Last Taken 03/08/22 08:00] Food drops 3 drp sublingual DAILY 12/05/21 [History Last Taken Unknown] Melaleuca Peak Sr [facility] PO BID 12/05/21 [History Last Taken Unknown] zyflamend 1 cap PO BID neuropathy 12/05/21 [History Last Taken 03/08/22 17:00] clopidogrel 75 mg tablet (Plavix) 75 mg PO QDAY #90 tabs 12/09/21 [Rx Last Taken 03/08/22 08:00] metoprolol tartrate 25 mg tablet 25 mg PO BID #180 tabs 12/09/21 [Rx Last Taken 03/08/22 17:00] furosemide 20 mg tablet 20 mg PO DAILY PRN edema #90 tabs 12/27/21 [Rx Last Taken Unknown] pravastatin 40 mg tablet 40 mg PO QHS #90 tabs 02/24/22 [Rx Last Taken 03/08/22 23:00] cephalexin 500 mg capsule 500 mg PO Q8H #21 caps 03/09/22 [Rx Last Taken Unknown] doxycycline hyclate 100 mg capsule 100 mg PO BID #10 caps 03/09/22 [Rx Last Taken Unknown] amiodarone 200 mg tablet 200 mg PO DAILY #90 tabs 03/17/22 [Rx Last Taken Unknown] Allergy/AdvReac Type Severity Reaction Status Date / Time aspirin Allergy Intermediate heart Verified 05/15/22 12:01 races, dizziness povidone-iodine Allergy Intermediate rash Verified 05/15/22 12:01 [From Betadine] soap [From Betadine] Allergy Intermediate rash Verified 05/15/22 12:01 amitriptyline Allergy Unknown Unknown Verified 05/15/22 12:01 doxepin Allergy Unknown unknown Verified 05/15/22 12:01 guaifenesin [From Entex LA] Allergy Unknown Unknown Verified 05/15/22 12:01 latex Allergy Unknown Rash Verified 05/15/22 12:01 phenylephrine [From Entex LA] Allergy Unknown Unknown Verified 05/15/22 12:01 phenylpropanolamine Allergy Unknown Unknown Verified 05/15/22 12:01 [From Entex LA] pseudoephedrine Allergy Unknown heart races Verified 05/15/22 12:01 Sulfa (Sulfonamide Allergy Unknown Unknown Verified 05/15/22 12:01 Antibiotics) Family History Father Asthma Diabetes High cholesterol Heart disease Hypertension Mother Arthritis Diabetes Heart disease Hypertension Sister Arthritis Lupus Brother Arthritis Surgical History History of cardiac catheterization History of colonoscopy (05/27/21) History of coronary artery stent placement History of hysterectomy History of repair of rectocele Social History household members: spouse Smoking Status: Never smoker alcohol intake: never substance use type: does not use ROS ROS ED Constitutional Constitutional ED: Denies chills or fever(s) Eyes Eyes: Denies change in vision ENT ENT ED: Denies rhinorrhea or sore throat Cardiovascular Cardiovascular: Denies chest pain Respiratory/Chest Respiratory/Chest: Denies cough Gastrointestinal Gastrointestinal: Denies nausea or vomiting Musculoskeletal Musculoskeletal: Reports arthralgias and other Details: right knee pain ; Denies back pain or neck pain Integumentary Reports Abrasions Neurologic Neurologic: Reports headache(s); Denies paresthesias or weakness Hematologic/Lymphatic Hematologic/Lymphatic: Denies easy bleeding or easy bruising EXAM Physical Exam Const Vital Signs: 05/15/22 11:58 05/15/22 13:43 05/15/22 15:34 Temperature 98.3 F Temperature Source Temporal Pulse Rate 53 L Respiratory Rate 20 H 16 Respiratory Effort Normal Non-Labored Blood Pressure 181/86 H 181/60 H Blood Pressure Mean 117 Pulse Ox 94 Oxygen Delivery Method Room Air Positive well nourished and well developed General Appearance ED: well developed and NAD HEENT Reports TM's clear HEENT Narrative: No epistaxis. No nasal trauma appreciated. No malocclusion. trauma, contusion Contusion Size: right forehead and hematoma Hematoma Size: right forehead approximately 5 cm x 5 cm, no active bleeding Tympanic Membrane ED: Yes TM's clear Eyes PERRL and EOMs intact bilaterally Neck full ROM and supple General: Negative for tenderness Chest Wall inspection of chest normal and palpation of chest normal Resp normal respiratory effort and clear to auscultation bilaterally Cardio regular rate, regular rhythm and no murmurs GI non-tender Extremity Extremity Narrative: No obvious deformity of the extremities. Negative logroll of the lower extremities bilaterally. Pelvis is stable. Mild tenderness palpation of the right knee which on the inferior aspect however no pinpoint bony tenderness. Range of motion preserved. No significant joint effusion appreciated bilaterally Neuro oriented x3, CN's II-XII intact bilaterally, moves all extremities, no focal motor deficits and no sensory deficits noted Sensorium / Orientation: alert Psych mental status grossly normal Skin Skin Narrative: Superficial nonbleeding abrasion to the right inferior anterior knee. Contusion to the right forehead, no active bleeding. MDM MDM MDM Narrative Medical decision making narrative: Patient is evaluated for mechanical fall. She did strike her head and significant hematoma on her right forehead. She also struck her knee. She complained of some groin pain however does not have pain with range of motion of the hip and I do not think she has a pelvic or hip fracture. She has abrasions but no lacerations amenable to suture repair. CT of the brain shows a right frontal scalp hematoma but no acute intracranial process. X-ray of the knee shows no acute fracture or dislocation. There is a mild effusion with moderate anterior soft tissue swelling. This is interpreted by myself as well as radiology. Morris wrap is applied to the patient's knee. Patient is given Tylenol for headache and repeat evaluation is feeling better. EMS report independently reviewed and gives the same story of the patient having mechanical fall trying to put her pants on as with the patient told me. Patient instructed to alternate ibuprofen and Tylenol as needed for pain at home. At this time I do not think she requires further admission or extended monitoring. Patient agreeable with plan of care. Patient also has tramadol which she can take as needed for pain. Radiography Diagnostic Testing: Clinical Impression(s) from Imaging Studies Brain CT 05/15/22 13:06 IMPRESSION: No acute intracranial process identified. Right frontal scalp hematoma. Chronic involutional and white matter changes. Electronically Signed: Angelica Naranjo MD at 13:47 EST , Knee X-Ray 05/15/22 13:25 IMPRESSION: No acute fracture or dislocation identified in the right knee. Mild joint effusion with moderate anterior soft tissue swelling, possible prepatellar bursitis. Electronically Signed: Angelica Naranjo MD at 13:48 EST , Discharge Plan Triage Chief Complaint: Fall ED Provider: Ginny Salazar Dx/Rx/DC Orders Clinical Impression: Closed head injury, Traumatic hematoma of forehead, Contusion of knee, right Instructions: ED Facial Contusion, ED Head Injury (Adult), ED Knee Effusion Prescriptions: No Action losartan 50 mg tablet 50 mg PO DAILY azelastine 137 mcg (0.1 %) aerosol,spray 1 spray INTRANASAL BID loratadine [Claritin] 10 mg tablet 10 mg PO DAILY Flovent HFA 220 mcg/actuation HFA aerosol inhaler 1 puff inhalation QODAY levothyroxine 100 mcg tablet 100 mcg PO Q OTHER DAY Rx Instructions: Alternate 50 mcg with 100 mcg. tramadol 50 mg tablet 25 mg PO DAILY PRN (Reason: Pain, Moderate) potassium chloride 10 mEq tablet,ER particles/crystals 10 meq PO DAILY ergocalciferol (vitamin D2) 1,250 mcg (50,000 unit) capsule 50,000 unit PO SUWE Food drops 3 drp sublingual DAILY Melaleuca Peak Sr [facility] PO BID zyflamend 1 cap PO BID olopatadine 0.2 % drops 1 drp ophthalmic (eye) BID cascara sagrada 450 mg Capsule 450 mg PO BID montelukast 5 mg tablet,chewable 5 mg PO QHS Label Comments: CHEW AND SWALLOW 1 TABLET BY MOUTH ONCE DAILY levothyroxine 100 mcg tablet 50 mcg PO QODAY fluticasone propionate 50 mcg/actuation spray,suspension 1 spray INTRANASAL BID aspirin 81 mg tablet,delayed release (DR/EC) 81 mg PO 1700 fluorometholone 0.1 % Drops,Suspension 1 drp EACH EYE BID cephalexin 500 mg capsule 500 mg PO Q8H Qty: 21 0RF doxycycline hyclate 100 mg capsule 100 mg PO BID Qty: 10 0RF Farxiga 10 mg tablet 10 mg PO DAILY clopidogrel [Plavix] 75 mg tablet 75 mg PO QDAY Qty: 90 3RF metoprolol tartrate 25 mg tablet 25 mg PO BID Qty: 180 3RF furosemide 20 mg tablet 20 mg PO DAILY PRN (Reason: edema) Qty: 90 3RF pravastatin 40 mg tablet 40 mg PO QHS Qty: 90 3RF amiodarone 200 mg tablet 200 mg PO DAILY Qty: 90 3RF Primary Care Provider: Su Thomas Referrals: Su Thomas DO [Primary Care Provider] - Activity Restrictions/Additional Instructions: Either take her tramadol or Tylenol for pain. Wear Morris wrap as needed for your knee. Follow-up with your primary care doctor. At this time you do not require any sutures and did not appear to have any broken bones. Disposition Disposition: Home, Self Care Discharge Date/Time: 05/15/22 15:45
[2022-05-15 15:34] VITALS: BP 181/60; RESP 16
== END 2022-05-15 15:45 | disposition home or self-care (01) ==
PROVIDERS: Emergency Provider Emergency Medicine; PCP Internal Medicine; Visit Provider Emergency Medicine
DX: S80.01XA Contusion of right knee, initial encounter (principal); J44.9 Chronic obstructive pulmonary disease, unspecified; E11.40 Type 2 diabetes mellitus with diabetic neuropathy, unspecified; I25.10 Atherosclerotic heart disease of native coronary artery without angina pectoris; I10 Essential (primary) hypertension; W08.XXXA Fall from other furniture, initial encounter; Y93.89 Activity, other specified; Y92.009 Unspecified place in unspecified non-institutional (private) residence as the place of occurrence of the external cause; S00.83XA Contusion of other part of head, initial encounter; Z79.82 Long term (current) use of aspirin; Z79.899 Other long term (current) drug therapy; M19.90 Unspecified osteoarthritis, unspecified site; I51.81 Takotsubo syndrome; E03.9 Hypothyroidism, unspecified; J45.909 Unspecified asthma, uncomplicated; E55.9 Vitamin D deficiency, unspecified; R00.0 Tachycardia, unspecified; Z95.5 Presence of coronary angioplasty implant and graft; Z79.02 Long term (current) use of antithrombotics/antiplatelets
CPT/HCPCS: 70450; 73564; 99284

== ENCOUNTER → 2022-07-23 | Outpatient (CLI) | payer MEDICARE, MEDICAID, SELFPAY ==
--- NOTE | 2022-07-23 13:20 | RAD_ITS ---
STUDY: X-RAY - LUMBAR SPINE REASON FOR EXAM: Female, 77 years old. BACK PAIN, LUMBOSACRAL TECHNIQUE: 5 view(s) of the lumbar spine were obtained including oblique views. COMPARISON: None FINDINGS: There is straightening of the normal lumbar lordosis. There is no substantial scoliosis. There is a normal alignment of the vertebrae. There is multilevel endplate spondylosis of the lumbar vertebrae. There is multi-level degenerative disc disease with multi-level disc space narrowing. Facet joint osteoarthritis. There is atherosclerotic calcification of the abdominal aorta without a demonstrated aneurysm. RAD/L/S Spine Min 4 Views IMPRESSION: Degenerative changes of the spine, as detailed above. Electronically Signed: Gareth Rojas MD at 13:22 EDT ,
--- NOTE | 2022-07-23 13:20 | RAD_ITS ---
INDICATION: BACK PAIN LUMBOSACRAL EXAMINATION/TECHNIQUE: X-RAY - XR Hips Bilateral with Pelvis when performed; 2 Views COMPARISON: Pelvis right hip x-rays 03/10/2019. FINDINGS: No fracture demonstrated. Femoral heads are normal contour. No dislocation of the hips. There is joint space narrowing at both hips with subchondral sclerosis and osteophytes, fairly symmetric. No significant change compared with the prior study. The sacroiliac joints are maintained. Degenerative changes in the lower lumbar spine. RAD/Hips B/L min 2 views w/ Pelvis IMPRESSION: No evidence of fracture. Mild degenerative changes bilateral hips. Electronically Signed: Agnieszka Ulloa MD at 7:38 EDT ,
== END | disposition home or self-care (01) ==
LOC: RAD 13:07
PROVIDERS: PCP Internal Medicine; Referring Provider Internal Medicine; Visit Provider Internal Medicine
DX: M54.50 Low back pain, unspecified (principal)
CPT/HCPCS: 72110; 73521

== ENCOUNTER 2022-08-01 09:06 | Outpatient (RCR) | payer MEDICARE, MEDICAID, SELFPAY | END 2022-08-01 09:07 | disposition home or self-care (01) | LOC: PT 09:06 | PROVIDERS: PCP Internal Medicine; Referring Provider Nurse Practitioner Family; Visit Provider Nurse Practitioner Family | DX: M17.12 Unilateral primary osteoarthritis, left knee ==

== ENCOUNTER 2022-08-12 15:00 | Outpatient (RCR) | payer MEDICARE, MEDICAID, SELFPAY ==
--- NOTE | 2022-08-01 11:22 | HP.PTEVAL_ITS ---
Patient's Visit Information CHIRAG RUFFIN is a 77 year old F referred to Physical Therapy by Dr. Su Johnson DO with a diagnosis of LBP AND LATISSIMUS SPASM. Date of Evaluation: 08/01/22 Physical Therapist: Cassie Rivera PT, Cert MDT - Visit Plan Frequency: 2-3x /Week Duration: 4-6 Weeks Plan: *CHECK AUTH NEXT VISIT: RECORD # OF VISITS APPROVED AND EXPIRATION DATE. CHECK CODES APPROVED WITH POC*. TRIAL OF TENS NEEDED AND HOME TENS UNIT INSTRUCTION IF NEEDED. US TO LEFT LOW COUNTY DIRECTOR AREAS. POSTURE CORRECTION/STRENGTHENING, INSTRUCTION IN APPROPRIATE BODY MECHANICS AND ACTIVITY MODIFICATIONS. DLS STARTING WITH A NEUTRAL SPINE PROGRESSING ROM TOLERATED. XAVIER LE ROM, STRETCHING AND STRENGTHENING. HEP INSTRUCTION. - Subjective Present symptoms: LEFT LOW BACK PAIN. Present since: 07/21/22. Pain Scale: WORST 5/10, LEAST 3/10. Currently: 3/10. Is it getting better, worse or staying the same: BETTER. PATIENT REPORTS THE SPASMS ARE GONE. NO SPASMS SINCE THE DAY AFTER DR. JOHNSON'S NURSE GAVE HER A SHOT. Commenced as a result of: NO APPARENT REASON. Symptoms at onset: LEFT LOW BACK SPASMS. Worse: ROLLING OVER AT NIGHT. Better: SITTING. Disturbed sleep: YES. Previous history/Previous treatment: ARTHRITIS IN BACK. NO BACK SURGERY OR BERONICA'S. PATIENT REPORTS CHRONIC LBP THAT SHE HAS MAINLY SELF MANAGED. Treatment this episode: SHOT (PATIENT ISN'T SURE OF WHAT) BY DR. JOHNSON'S NURSE 07/23/22. STATES SHE WENT TO A [facility] BUT HE WOULDN'T TREAT HER UNTIL SHE WAS CLEARED OF COMPRESSION FRACTURE. Coughing/sneezing/straining: NOT NOW BUT IT DID AT ONSET. Gait: BACK TO NORMAL NOW. STATES SHE HAS TO USE A ROLLATOR DUE TO NEUROPATHY AND R KNEE PAIN. Bowel or Bladder Dysfunction: NO EXCEPT FREQUENT URINATION. Unexplained weight loss: NO. Imaging: RECENT BACK X-RAY 07/24/22: STUDY: X-RAY - LUMBAR SPINE. REASON FOR EXAM: Female, 77 years old. BACK PAIN, LUMBOSACRAL. TECHNIQUE: 5 view(s) of the lumbar spine were obtained including oblique. views. COMPARISON: None. . FINDINGS: There is straightening of the normal lumbar lordosis. There is no. substantial scoliosis. There is a normal alignment of the vertebrae. There is multilevel endplate spondylosis of the lumbar vertebrae. There is. multi-level degenerative disc disease with multi- level disc space. narrowing. Facet joint osteoarthritis. There is atherosclerotic calcification of the abdominal aorta without a. demonstrated aneurysm. . RAD/L/S Spine Min 4 Views. IMPRESSION: Degenerative changes of the spine, as detailed above. OTHER: PATIENT FALL F/B ED VISIT 05/15. RECENT X-RAYS OF HIPS AND R KNEE. - Objective THIS PATIENT AMBULATES INDEP'LY INTO PT X APPROX 150 FEET WITH ROLLATOR. SHE WAS TAKEN THE REST OF THE WAY BACK TO A TREATMENT ROOM IN A WHEEL CHAIR DUE TO THE CONSIDERABLE TAXING EFFORT OBSERVED TO CONTINUE WALKING. PATIENT WAS AGREEABLE. SHE DEMO'S INDEP TRANSFERS SIT TO STAND AND CHAIR TO W/C WITH ONE UE ASSIST. SHE DEMO'S INDEP ABILITY TO TRANSFER FROM W/C TO COMMODE, PULL OWN PANTS DOWN, PULL OWN PANTS UP AND RETURN TO W/C. AMBULATION WITH THE ROLLATOR IS SLOW AND ANTALGIC WITH INCREASED TRUNK FLEXION AND SIGNIFICANT LIMP ON R LE. R FOOT SUPINATION. DECREASED XAVIER STRIDE LENGTH AND DECREASED R KNEE FLEXION DURING SWING PHASE OF GAIT. SHE STANDS WITH REDUCED LUMBAR LORDOSIS BUT NO RELEVANT LATERAL SHIFT. SHE HAS LEFT LUMBAR PARASPINAL TENDERNESS COMPARED TO R BUT NO PALPABLE MUSCLE SPASMS TODAY. SHE HAS XAVIER HIP WEAKNESS R>L WITH R HIP GRADED 3+/5 AND R 4-/5. RIGHT KNEE 3-/5, L KNEE 4-/5. R ANKLE 3-/5, L ANKLE 4/5. Sensory deficit: XAVIER LE LIGHT TOUCH SENSATION GROSSLY INTACT AND SYMMETRICAL INCLUDING FEET BUT PATIENT REPORTS DIABETIC NEUROPATHY SYMPTOMS. ROM deficit: TIGHT XAVIER HIPS ALL PLANES R > L. TIGHT XAVIER HS'S R>L, TIGHT XAVIER GASTROC-SOLEUS COMPLEX'S R>L. Lumbar mvmt loss: flex - MOD. ext - KENDRA. R SG - KENDRA. L SG - KENDRA. PATIENT REPORTS L LB SORENESS WITH ROM TESTING. Core strength: POOR. OTHER: PATIENT INQUIRED ABOUT HOME HEALTH PT BASED ON HOME THERAPY IN THE PAST. IF PATIENT GETS TOO FATIGUED GETTING TO OUT-PATIENT PT SHE MAY BENEFIT FROM HOME PT TO HELP GET HER STRONG ENOUGH TO COME TO OUT-PATIENT. PATIENT WANTS TO CONSIDER HER OPTIONS BEFORE SCHEDULING FURTHER PT. - Balance/Special Test Scores Oswestry Low Back Score: 23 - Goals Goal 1:: DECREASE C/O LOW BACK PAIN Goal Time Frame: 4-6 Weeks Goal 2:: IMPROVE PERSONAL CARE, LIFTING, WALKING, STANDING, SOCIAL LIFE, TRAVEL AND HOMEMAKING FUNCTION Goal Time Frame: 4-6 Weeks Goal 3:: INSTRUCT IN PROPHYLAXIS Goal Time Frame: 4-6 Weeks - Anticipated Interventions Patient/Client Instruction: Educate patient on: Condition, Plan of Care, Risk Factors For the Purpose of:: To improve self management Therapeutic Exercise to Include: Strength training, Endurance training, Body mechanics, Postural training, Flexibilty training, Gait and locomotor training, Neuromotor development, Dynamic Lumbar Stabilization For the Purpose of:: To decrease pain, To increase ROM, To improve muscle performance and motor function, To increase tolerance to activity/condition/position, To improve ability of physical actions for home/community/work/leisure, To improve gait and locomotor functions Thank you for the opportunity to evaluate your patient. For Medicare and Medicare HMO plans, please review the plan of care and approve it. It will need to be FAXED BACK to us at [phone] for Medicare purposes. For Medicare only, by signing this I certify the plan of care. Please let me know if there are questions or concerns regarding this plan of care. Physician Signature: Date:
--- NOTE | 2022-11-26 13:19 | HP.PT.NRP ---
Patient Information Patient Information: CHIRAG RUFFIN was seen in my office for initial evaluation on 08/01/22. The following Plan of Care was established for this patient: POC Established Initial Frequency: 2-3x /Week Initial Duration: 4-6 Weeks Anticipated Interventions Patient/Client Instruction: Educate patient on: Condition, Plan of Care and Risk Factors For the Purpose of:: To improve self management Therapeutic Exercise to Include: Strength training, Endurance training, Body mechanics, Postural training, Flexibilty training, Gait and locomotor training, Neuromotor development and Dynamic Lumbar Stabilization For the Purpose of:: To decrease pain, To increase ROM, To improve muscle performance and motor function, To increase tolerance to activity/condition/position, To improve ability of physical actions for home/community/work/leisure and To improve gait and locomotor functions Last Seen Last Seen: This patient was last seen in our office 08/12/22. Pertinent comments regarding their Physical therapy will appear below: This patient has not returned to Physical Therapy and is appropriate to return to MD for further follow-up as needed. At this point I will be discontinuing this patient from physical therapy. I would be happy to see this patient again in the future if found appropriate by the physician. Thank you! Cassie Rivera, PT, Cert MDT Balance/Gait/Functional tests Balance/Special Test Scores Oswestry Low Back Score: 23
== END 2022-08-12 19:00 | disposition home or self-care (01) ==
LOC: PT 15:00
PROVIDERS: PCP Internal Medicine; Referring Provider Internal Medicine; Visit Provider Internal Medicine
DX: M54.50 Low back pain, unspecified; R25.2 Cramp and spasm
CPT/HCPCS: 97035; 97110; 97162

== ENCOUNTER 2023-04-01 05:34 | Emergency (ER) | payer MEDICARE, MEDICAID, SELFPAY ==
[2023-04-01 05:36] VITALS: BP 199/79; PULSE 85; RESP 18; TEMP 36.6; O2SAT 98; BMI 33.3
[2023-04-01 06:04] LABS: Absolute Lymphocyte Count 4.66 X10^3/uL (0.83-4.51); Absolute Neutrophil Count 9.6 X10^3/uL (2.0-7.7); Basophil# 0.05 X10^3/uL; Basophil% 0.3 % (0-1); Eosinophil# 0.13 X10^3/uL; Eosinophils% 0.8 % (0-5); Hematocrit 49.1 % (37-47); Hemoglobin 15.9 g/dL (12.0-15.0); Lymphocyte # 4.66 X10^3/ul (0.83-4.51); Lymphocyte % 29.3 % (19-41); Mean Corp Hgb Conc 32.4 g/dL (32-36); Mean Corpuscular Hgb 30.4 pg (27.0-32.0); Mean Corpuscular Volume 93.9 fL (81-99); Mean Platelet Vol. 8.8 fl (6.2-12.0); Monocyte# 1.31 X10^3/uL; Monocyte% 8.2 % (0-10); NRBC Flagged by Analyzer 0 % (0-5); Neutrophil # 9.59 X10^3/uL (2.7-7.7); Neutrophil % 60.5 % (47-70); Platelet Count 425 K/mm3 (150-450); RBC Distribution Width CV 13.4 % (11.6-14.6); RBC Distribution Width SD 46.5 fl (35.1-43.9); Red Blood Count 5.23 M/mm3 (4.2-5.4); White Blood Count 15.9 K/mm3 (4.4-11.0)
--- NOTE | 2023-04-01 06:30 | RAD_ITS ---
INDICATION: sob EXAMINATION/TECHNIQUE: X-RAY - XR Chest 1 View AP portable. 6:33 AM COMPARISON: 10/21/2021 FINDINGS: LINES/DEVICES: None. LUNGS: No consolidation. No pneumothorax. MEDIASTINUM: Aorta is atherosclerotic. CARDIAC SILHOUETTE: Not enlarged. BONES AND SOFT TISSUES: No acute abnormalities. RAD/Chest 1 View (Portable) IMPRESSION: No evidence of active intrathoracic disease. Electronically Signed: Agnieszka Ulloa MD at 7:08 EST ,
[2023-04-01 06:33] LABS: Anion Gap 9 (5-15); BUN 31 mg/dL (7-18); BUN/Creat Ratio 26.5 RATIO (10-20); Calcium,Total 9.7 mg/dL (8.5-10.1); Chloride 104 mmol/L (98-107); Creatinine, Serum 1.17 mg/dL (0.55-1.02); EST Glomerular Filtration Rate 47 mL/min (>60); Est Glom Filt Rate - Afr Amer 57 mL/min (>60); Estimated Creatinine Clearance 29.42 ml/min; Glucose 140 mg/dL (74-106); Potassium 4.1 mmol/L (3.5-5.1); Sodium Level 139 mmol/L (136-145); Troponin-I HS (w/2H Reflex) 15 pg/mL (3.0-54.0)
[2023-04-01 06:41] LABS: Mucous, Urine 0 SEEN /hpf (<or=2+); Red Blood Cells-Urine 0 SEEN /hpf (0-5); Squamous Epithelial Cells - UA 0 SEEN /hpf (5-10)
[2023-04-01 06:48] VITALS: BP 155/64; PULSE 68; RESP 15; O2SAT 93
[2023-04-01 06:48] LABS: Color, Urine Yellow (Yellow); Glucose, Dipstick 250 mg/dl (Normal); Ketone-Dipstick Negative (Negative); Leukocyte Esterase-Dipstick 25 /ul (Negative); Nitrite-Dipstick Negative (Negative); Occult Blood-Urine Negative /ul (Negative); Protein-Dipstick Negative (Negative); Urine Bilirubin Dipstick Negative (Negative); Urine Clarity Clear (Clear); Urine Urobilinogen Normal (Normal); Urine pH 6.5 (5.0 - 8.0)
[2023-04-01 07:01] LABS: Bacteria 1+ /hpf (None Seen); White Blood Cells 0-5 SEEN /hpf (0-5)
[2023-04-01 07:59] LABS: Reflex Troponin-HS? (from REC) Y
[2023-04-01 08:00] VITALS: BP 140/59; PULSE 68; RESP 13; O2SAT 95
[2023-04-01 08:37] LABS: Troponin-I HS 19 pg/mL (3.0-54.0)
[2023-04-01 08:59] VITALS: O2SAT 95
--- NOTE | 2023-04-01 08:59 | ED.RN ---
Patient ambulated with SpO2, beginning at 95% and briefly (less than 1 minute) dropped to 89% but recovered well and remained 90-92% without the need for oxygen. Shortness of breath unchanged from beginning to end of test walk.
--- NOTE | 2023-04-01 09:02 | EX.ED.DYSGE1 ---
HPI History of Present Illness Chief Complaint: Shortness of Breath Detail of Chief Complaint: Hypertension Informant: patient Narrative Narrative: Patient was diagnosed with COVID on the . She states earlier this morning she does not feel right so she took her blood pressure and it was quite elevated over 200 systolic. She is concerned because she states the last time her blood pressure was that high she had a heart attack. She called 911. She does report feeling more short of breath, but had given herself a breathing treatment prior to EMS arrival. She denies chest pain. [facility] Medical History (Updated 04/01/23 @ 09:[address] Gabriela Latham MD) Allergic rhinitis Ambulates with cane Anxiety Arthritis Asthma Atherosclerotic heart disease of [place] coronary artery without angina pectoris Back pain Cardiology follow-up encounter COVID-19 Depressive disorder Diabetes Diabetic neuropathy Dyspepsia Essential hypertension Fibromyalgia Hearing loss High cholesterol History of adenomatous polyp of colon History of coronary artery disease History of diabetes mellitus History of echocardiogram History of heart attack History of rheumatic fever History of steroid therapy History of tachycardia Hyperlipidemia Hypertension Hypothyroidism Insomnia Ischemic cardiomyopathy Left against medical advice (12/19/20) Non-STEMI (non-ST elevated myocardial infarction) (12/13/20) Obesity Osteoarthritis Positive colorectal cancer screening using Cologuard test Rheumatoid arthritis Tachycardia Takotsubo cardiomyopathy Thyroid disease Thyromegaly Varicosities of leg Vitamin D deficiency Walker as ambulation aid Wears dentures Wears glasses Wears hearing aid Home Medications azelastine 137 mcg (0.1 %) nasal spray aerosol 1 spray intranasal BID 01/29/18 [History Last Taken 03/08/22 08:00] loratadine 10 mg tablet (Claritin) 10 mg PO DAILY 01/29/18 [History Last Taken 03/07/22] cascara sagrada 450 mg capsule 450 mg PO BID SUPPLEMENT 12/19/20 [History Last Taken 03/08/22 17:00] levothyroxine 100 mcg tablet 50 mcg PO QODAY THYROID 12/19/20 [History Last Taken 03/08/22 07:00] levothyroxine 100 mcg tablet 100 mcg PO Q OTHER DAY 02/28/21 [History Last Taken 03/07/22 07:00] tramadol 50 mg tablet 25 mg PO DAILY PRN Pain, Moderate 02/28/21 [History Last Taken 03/08/22 17:00 25 mg] aspirin 81 mg tablet,delayed release 81 mg PO 1700 heart health 05/22/21 [History Last Taken 03/08/22 17:00] ergocalciferol (vitamin D2) 1,250 mcg (50,000 unit) capsule 50,000 unit PO SUWE vitamin 05/28/21 [History Last Taken 03/05/22] fluticasone propionate 50 mcg/actuation nasal spray,suspension 1 spray intranasal BID 05/28/21 [History Last Taken 03/08/22 08:00] potassium chloride 10 mEq tablet,extended release(part/cryst) 10 meq PO DAILY 05/28/21 [History Last Taken 03/08/22 08:00] dapagliflozin propanediol 10 mg tablet (Fartomekaga) 10 mg PO DAILY per Dr. Thomas 10/08/21 [History Last Taken 03/08/22 08:00] Food drops 3 drp sublingual DAILY 12/05/21 [History Last Taken Unknown] Melaleuca Peak Sr [facility] PO BID 12/05/21 [History Last Taken Unknown] zyflamend 1 cap PO BID neuropathy 12/05/21 [History Last Taken 03/08/22 17:00] pravastatin 40 mg tablet 40 mg PO QHS #90 tabs 02/24/22 [Rx Last Taken 03/08/22 23:00] fluticasone propionate 220 mcg/actuation HFA aerosol inhaler (Flovent HFA) 1 puff inhalation BID 09/29/22 [History Last Taken Unknown] furosemide 20 mg tablet 20 mg PO DAILY edema 09/29/22 [History Last Taken Unknown] losartan 50 mg tablet 100 mg PO DAILY 09/29/22 [History Last Taken Unknown] montelukast 10 mg tablet 10 mg PO QPM 09/29/22 [History Last Taken Unknown] clopidogrel 75 mg tablet (Plavix) 75 mg PO QDAY #90 tabs 12/11/22 [Rx Last Taken Unknown] metoprolol tartrate 25 mg tablet 12.5 mg (1/2 x 25 mg) PO BID #180 tabs 12/26/22 [Rx Last Taken Unknown] albuterol sulfate 2.5 mg/3 mL (0.083 %) solution for nebulization mg 01/08/23 [History Last Taken Unknown] fluorometholone 0.1 % eye drops,suspension drp 01/08/23 [History Last Taken Unknown] vibegron 75 mg tablet (Gemtesa) 75 mg PO DAILY 01/08/23 [History Last Taken Unknown] amlodipine 5 mg tablet 5 mg PO DAILY Dose increased from 2.5 to 5 mg daily #90 tabs 03/04/23 [Rx Last Taken Unknown] amiodarone 200 mg tablet See Rx Instructions .Route .COMPLEX #90 tabs 03/25/23 [Rx Last Taken Unknown] Allergy/AdvReac Type Severity Reaction Status Date / Time aspirin Allergy Intermediate heart Verified 04/01/23 05:37 races, dizziness povidone-iodine Allergy Intermediate rash Verified 04/01/23 05:37 [From Betadine] soap [From Betadine] Allergy Intermediate rash Verified 04/01/23 05:37 amitriptyline Allergy Unknown Unknown Verified 04/01/23 05:37 doxepin Allergy Unknown unknown Verified 04/01/23 05:37 guaifenesin [From Entex LA] Allergy Unknown Unknown Verified 04/01/23 05:37 latex Allergy Unknown Rash Verified 04/01/23 05:37 phenylephrine [From Entex LA] Allergy Unknown Unknown Verified 04/01/23 05:37 phenylpropanolamine Allergy Unknown Unknown Verified 04/01/23 05:37 [From Entex LA] pseudoephedrine Allergy Unknown heart races Verified 04/01/23 05:37 Sulfa (Sulfonamide Allergy Unknown Unknown Verified 04/01/23 05:37 Antibiotics) Family History Father Asthma Diabetes High cholesterol Heart disease Hypertension Mother Arthritis Diabetes Heart disease Hypertension Sister Arthritis Lupus Brother Arthritis Surgical History History of cardiac catheterization History of colonoscopy (05/27/21) History of coronary artery stent placement (10/14/21) History of coronary artery stent placement History of hysterectomy History of repair of rectocele Social History household members: spouse Smoking Status: Never smoker alcohol intake: never substance use type: does not use caffeine: Yes Type: tea Number of servings: 2 ROS ROS ED Constitutional Constitutional ED: Denies chills or fever(s) Eyes Eyes: Denies discharge from eye(s) ENT ENT ED: Denies discharge from eye(s), rhinorrhea or sore throat Cardiovascular Cardiovascular: Denies chest pain or palpitations Respiratory/Chest Respiratory/Chest: Reports cough and dyspnea Gastrointestinal Gastrointestinal: Denies abdominal pain, nausea or vomiting Genitourinary Genitourinary ED: Denies dysuria Musculoskeletal Musculoskeletal: Denies back pain or extremity pain Integumentary Denies Abrasions or rash Neurologic Neurologic: Denies headache(s) or weakness Psychiatric Psychiatric: Denies anxiety or depression Allergic/Immunologic Allergic/Immunologic ED: Denies lip swelling or urticaria EXAM Physical Exam Const Vital Signs: 04/01/23 05:36 04/01/23 05:36 04/01/23 06:48 Temperature 97.8 F Temperature Source Temporal Pulse Rate 85 68 Respiratory Rate 18 15 Respiratory Effort Normal Non-Labored Respiratory Depth Normal Respiratory Pattern Normal Blood Pressure 199/79 H 155/64 H Blood Pressure Mean 119 94 Pulse Ox 98 93 Oxygen Delivery Method Room Air Room Air Room Air 04/01/23 08:00 Temperature Temperature Source Pulse Rate 68 Respiratory Rate 13 Respiratory Effort Respiratory Depth Respiratory Pattern Blood Pressure 140/59 H Blood Pressure Mean 86 Pulse Ox 95 Oxygen Delivery Method Room Air Positive well nourished and well developed General Appearance ED: well developed HEENT Reports moist mucous membranes Eyes EOMs intact bilaterally Chest Wall inspection of chest normal and palpation of chest normal Resp normal respiratory effort and clear to auscultation bilaterally Cardio regular rate and regular rhythm GI non-tender Palpation: soft Neuro oriented x3 Neuro Narrative: No focal neurologic deficit. Psych mental status grossly normal MDM MDM MDM Narrative Medical decision making narrative: Patient placed on playground monitor. IV line initiated. Labwork obtained to evaluate for leukocytosis, anemia, and electrolyte derangement. EKG obtained to evaluate for cardiac arrhythmia/ischemia. Chest x-ray obtained to evaluate for acute lung pathology, cardiac size, or mediastinal abnormality. Urinalysis obtained to evaluate for infection/hematuria. Patient's initial blood pressures were elevated near 200 systolic. I initially ordered IV metoprolol, however patient's blood pressure improved on its own and she did not require any further intervention. History & Record Review Discussion w/independent historian: Patient and Significant other Additional record(s) reviewed:: Prior ED visit Lab Data Attestation: I reviewed the patient's lab results. Labs: Laboratory Results - last 24 hr 04/01/23 04/01/23 04/01/23 05:56 06:30 08:08 WBC 15.9 H RBC 5.23 Hgb 15.9 H Hct 49.1 H MCV 93.9 MCH 30.4 MCHC 32.4 RDW Std Deviation 46.5 H RDW Coeff of Manas 13.4 Plt Count 425 MPV 8.8 Immature Gran % (Auto) 0.900 Neut % (Auto) 60.5 Lymph % (Auto) 29.3 [place] % (Auto) 8.2 Eos % (Auto) 0.8 Baso % (Auto) 0.3 Absolute Neuts (auto) 9.6 H Absolute Lymphs (auto) 4.66 H Nucleated RBC % 0 Sodium 139 Potassium 4.1 Chloride 104 Carbon Dioxide 26.0 Anion Gap 9 BUN 31 H Creatinine 1.17 H Estim Creat Clear Calc 29.42 Est GFR (MDRD) Af Amer 57 L Est GFR (MDRD) Non-Af 47 L BUN/Creatinine Ratio 26.5 H Glucose 140 H Calcium 9.7 Troponin I High Sens 15 19 Urine Color Yellow Urine Clarity Clear Urine pH 6.5 Ur Specific [place] 1.010 Urine Protein Negative Urine Glucose (UA) 250 H Urine Ketones Negative Urine Occult Blood Negative Urine Nitrite Negative Urine Bilirubin Negative Urine Urobilinogen Normal Ur Leukocyte Esterase 25 H Urine RBC 0 SEEN Urine WBC 0-5 SEEN Ur Squamous Epith Cells 0 SEEN Urine Bacteria 1+ Urine Mucus 0 SEEN Radiography Chest X-Ray - ED: 1 View, Read by ED Physician, Chronic Changes and No Infiltrates Diagnostic Testing: Clinical Impression(s) from Imaging Studies Chest X-Ray 04/01/23 06:30 IMPRESSION: No evidence of active intrathoracic disease. Electronically Signed: Agnieszka Ulloa MD at 7:08 EST , EKG Initial EKG: Attestation: I personally reviewed and interpreted this EKG as follows: Interpretation: Sinus Rhythm (Sinus at 82 with no acute ischemia.) Treatment and Re-Evaluation :: CBC was a white count of 15.9 with hemoglobin of 15.9. Differential is unremarkable. Chemistry studies reveal BUN of 31 and a creatinine 1.7. Troponin is normal at 15 with 2-hour repeat troponin of 19. Urinalysis reveals 1+ bacteria with 0-5 white cells and no nitrites. Portable chest x-ray per my interpretation reveals chronic changes with no focal infiltrate. Radiology interpretation reviewed and is agrees. EKG is sinus with no acute ischemia. At this time patient has no evidence of cardiac injury. She was able to get up and ambulate with her walker and did not become hypoxic. She has a pulse ox meter at home to monitor her oxygen levels. She will continue supportive care for her COVID. Return instructions provided. Discharge Plan Triage Chief Complaint: Shortness of Breath ED Provider: Gabriela Latham Dx/Rx/DC Orders Clinical Impression: COVID-19, Hypertension Instructions: Coronavirus Disease 2019 (COVID-19): Caring for Yourself or Others, ED High Blood Pressure Hypertension Prescriptions: No Action azelastine 137 mcg (0.1 %) aerosol,spray 1 spray INTRANASAL BID loratadine [Claritin] 10 mg tablet 10 mg PO DAILY levothyroxine 100 mcg tablet 100 mcg PO Q OTHER DAY Rx Instructions: Alternate 50 mcg with 100 mcg. tramadol 50 mg tablet 25 mg PO DAILY PRN (Reason: Pain, Moderate) Flovent HFA 220 mcg/actuation HFA aerosol inhaler 1 puff inhalation BID potassium chloride 10 mEq tablet,ER particles/crystals 10 meq PO DAILY ergocalciferol (vitamin D2) 1,250 mcg (50,000 unit) capsule 50,000 unit PO SUWE Food drops 3 drp sublingual DAILY Melaleuca Peak Sr [facility] PO BID zyflamend 1 cap PO BID furosemide 20 mg tablet 20 mg PO DAILY montelukast 10 mg tablet 10 mg PO QPM losartan 50 mg tablet 100 mg PO DAILY cascara sagrada 450 mg Capsule 450 mg PO BID levothyroxine 100 mcg tablet 50 mcg PO QODAY fluticasone propionate 50 mcg/actuation spray,suspension 1 spray INTRANASAL BID Gemtesa 75 mg tablet 75 mg PO DAILY albuterol sulfate 2.5 mg /3 mL (0.083 %) solution for nebulization fluorometholone 0.1 % drops,suspension aspirin 81 mg tablet,delayed release (DR/EC) 81 mg PO 1700 Farxiga 10 mg tablet 10 mg PO DAILY pravastatin 40 mg tablet 40 mg PO QHS Qty: 90 3RF clopidogrel [Plavix] 75 mg tablet 75 mg PO QDAY Qty: 90 3RF metoprolol tartrate 25 mg tablet 12.5 mg PO BID Qty: 180 3RF amlodipine 5 mg tablet 5 mg PO DAILY Qty: 90 3RF amiodarone 200 mg tablet See Rx Instructions .ROUTE .COMPLEX Qty: 90 3RF Dose Instruction: TAKE 1 TABLET EVERY DAY Rx Instructions: TAKE 1 TABLET EVERY DAY Primary Care Provider: Su Thomas Referrals: Su Thomas DO [Primary Care Provider] - 1 Week Disposition Disposition: Home, Self Care
[2023-04-01 09:08] VITALS: BP 144/78; PULSE 82; O2SAT 94
== END 2023-04-01 09:18 | disposition home or self-care (01) ==
PROVIDERS: Emergency Provider Emergency Medicine; PCP Internal Medicine; Visit Provider Emergency Medicine
DX: U07.1 COVID-19 (principal); E11.9 Type 2 diabetes mellitus without complications; R06.02 Shortness of breath; I10 Essential (primary) hypertension; I25.10 Atherosclerotic heart disease of native coronary artery without angina pectoris; E78.5 Hyperlipidemia, unspecified; I25.2 Old myocardial infarction; I5A Non-ischemic myocardial injury (non-traumatic); Z79.899 Other long term (current) drug therapy; E03.9 Hypothyroidism, unspecified; Z79.82 Long term (current) use of aspirin; J45.909 Unspecified asthma, uncomplicated; Z79.51 Long term (current) use of inhaled steroids; Z79.02 Long term (current) use of antithrombotics/antiplatelets; Z95.5 Presence of coronary angioplasty implant and graft; Z90.710 Acquired absence of both cervix and uterus
CPT/HCPCS: 71045; 80048; 81001; 84484; 85025; 93005; 99284; A4216

== ENCOUNTER → 2023-04-13 | Outpatient (CLI) | payer MEDICARE, MEDICAID, SELFPAY ==
[2023-04-13 14:27] LABS: Anion Gap 6 (5-15); BUN 23 mg/dL (7-18); BUN/Creat Ratio 19.8 RATIO (10-20); Calcium,Total 9.1 mg/dL (8.5-10.1); Chloride 104 mmol/L (98-107); Creatinine, Serum 1.16 mg/dL (0.55-1.02); EST Glomerular Filtration Rate 48 mL/min (>60); Est Glom Filt Rate - Afr Amer 58 mL/min (>60); Glucose 147 mg/dL (74-106); Sodium Level 139 mmol/L (136-145)
== END | disposition home or self-care (01) ==
PROVIDERS: PCP Internal Medicine; Referring Provider Nurse Practitioner Family; Visit Provider Nurse Practitioner Family
DX: R06.02 Shortness of breath (principal); R63.5 Abnormal weight gain; R60.9 Edema, unspecified
CPT/HCPCS: 36415; 80048

== ENCOUNTER 2023-05-15 20:34 | Inpatient (IN) | payer MEDICARE, MEDICAID, SELFPAY ==
[2023-05-15 20:36] VITALS: BP 126/86; PULSE 103; RESP 26; TEMP 37.6; O2SAT 88; O2SAT 94; BMI 33.6
--- NOTE | 2023-05-15 21:17 | EKG12_ITS ---
Test Reason : DYSRHYTHMIA Blood Pressure : / mmHG Vent. Rate : 098 BPM Atrial Rate : 098 BPM P-R Int : 172 ms QRS Dur : 108 ms QT Int : 348 ms P-R-T Axes : 091 048 007 degrees QTc Int : 444 ms Normal sinus rhythm Inferior infarct , age undetermined Abnormal ECG Confirmed by Mikey Simmons [id number]), editor magazine PRAVIN GOODEN ([id number]) on 05/18/2023 9:44:58 AM Referred By: Confirmed By:Mikey Simmons
[2023-05-15 21:24] LABS: Absolute Lymphocyte Count 0.41 X10^3/uL (0.83-4.51); Absolute Neutrophil Count 7.9 X10^3/uL (2.0-7.7); Basophil# 0.05 X10^3/uL; Basophil% 0.5 % (0-1); Eosinophil# 0.02 X10^3/uL; Eosinophils% 0.2 % (0-5); Hematocrit 42.5 % (37-47); Hemoglobin 13.7 g/dL (12.0-15.0); Lymphocyte # 0.41 X10^3/ul (0.83-4.51); Lymphocyte % 4.4 % (19-41); Mean Corp Hgb Conc 32.2 g/dL (32-36); Mean Corpuscular Hgb 30.2 pg (27.0-32.0); Mean Corpuscular Volume 93.8 fL (81-99); Monocyte# 0.97 X10^3/uL; Monocyte% 10.3 % (0-10); NRBC Flagged by Analyzer 0 % (0-5); Neutrophil # 7.88 X10^3/uL (2.7-7.7); Neutrophil % 84.1 % (47-70); POSITIVE DIFFERENTIAL YES; Platelet Count 269 K/mm3 (150-450); RBC Distribution Width CV 14.6 % (11.6-14.6); RBC Distribution Width SD 50.4 fl (35.1-43.9); Red Blood Count 4.53 M/mm3 (4.2-5.4); White Blood Count 9.4 K/mm3 (4.4-11.0)
[2023-05-15] MEDS: 0.9% Normal Saline (1000mL) 1,000 ML 999 ML IV (21:27)
--- NOTE | 2023-05-15 21:30 | RAD_ITS ---
INDICATION: cough EXAMINATION/TECHNIQUE: X-RAY - XR Chest 2 Views COMPARISON: 04/01/2023 FINDINGS: LIFE-SUPPORT AND LINES: 1. None HEART AND VESSELS: The cardiac silhouette, pulmonary vasculature have normal appearance. No evidence of congestive failure. LUNGS AND PLEURAL SPACES: There is interstitial infiltrate atelectasis at the LEFT lung base. Remaining lung zones are clear. No consolidation. No pulmonary mass is noted. MEDIASTINUM AND HILAR REGIONS: No masses adenopathy noted. No areas of calcification. Visualized upper airway is normal in position. BONY ELEMENTS: No acute bony changes noted. RAD/Chest PA and Lateral IMPRESSION: 1. Interstitial infiltrate in the retrocardiac LEFT lower lobe. No consolidation. 2. No congestive failure. Electronically Signed: Macario Zimmer MD at 21:44 EST ,
--- NOTE | 2023-05-15 21:30 | EDS_ITS ---
HPI <IRENE Cano - Last Filed: 05/15/23 22:10> History of Present Illness Chief Complaint: Shortness of Breath Narrative Narrative: 77-year-old female with PMH of HTN, HLD, DM2, CAD with stents, CHF states she started to feel ill yesterday with fever, chills, cough and shortness of breath and tested positive for influenza A. PFSH <IRENE Cano - Last Filed: 05/15/23 22:10> PFS Medical History Allergic rhinitis Ambulates with cane Anxiety Arthritis Asthma Atherosclerotic heart disease of [place] coronary artery without angina pectoris Back pain Cardiology follow-up encounter COVID-19 Depressive disorder Diabetes Diabetic neuropathy Dyspepsia Essential hypertension Fibromyalgia Hearing loss High cholesterol History of adenomatous polyp of colon History of coronary artery disease History of diabetes mellitus History of echocardiogram History of heart attack History of rheumatic fever History of steroid therapy History of tachycardia Hyperlipidemia Hypertension Hypothyroidism Insomnia Ischemic cardiomyopathy Left against medical advice (12/19/20) Non-STEMI (non-ST elevated myocardial infarction) (12/13/20) Obesity Osteoarthritis Positive colorectal cancer screening using Cologuard test Rheumatoid arthritis Tachycardia Takotsubo cardiomyopathy Thyroid disease Thyromegaly Varicosities of leg Vitamin D deficiency Walker as ambulation aid Wears dentures Wears glasses Wears hearing aid Home Medications azelastine 137 mcg (0.1 %) nasal spray aerosol 1 spray intranasal BID 01/29/18 [History Last Taken 03/08/22 08:00] loratadine 10 mg tablet (Claritin) 10 mg PO DAILY 01/29/18 [History Last Taken 03/07/22] cascara sagrada 450 mg capsule 450 mg PO BID SUPPLEMENT 12/19/20 [History Last Taken 03/08/22 17:00] levothyroxine 100 mcg tablet 50 mcg PO QODAY THYROID 12/19/20 [History Last Taken 03/08/22 07:00] levothyroxine 100 mcg tablet 100 mcg PO Q OTHER DAY 02/28/21 [History Last Taken 03/07/22 07:00] aspirin 81 mg tablet,delayed release 81 mg PO 1700 [facility] 05/22/21 [History Last Taken 03/08/22 17:00] ergocalciferol (vitamin D2) 1,250 mcg (50,000 unit) capsule 50,000 unit PO SUWE vitamin 05/28/21 [History Last Taken 03/05/22] fluticasone propionate 50 mcg/actuation nasal spray,suspension 1 spray intranasal BID 05/28/21 [History Last Taken 03/08/22 08:00] potassium chloride 10 mEq tablet,extended release(part/cryst) 10 meq PO DAILY 05/28/21 [History Last Taken 03/08/22 08:00] dapagliflozin propanediol 10 mg tablet (Fartomekaga) 10 mg PO DAILY per Dr. Thomas 10/08/21 [History Last Taken 03/08/22 08:00] Food drops 3 drp sublingual DAILY 12/05/21 [History Last Taken Unknown] Melaleuca Peak Sr [facility] PO BID 12/05/21 [History Last Taken Unknown] zyflamend 1 cap PO BID neuropathy 12/05/21 [History Last Taken 03/08/22 17:00] fluticasone propionate 220 mcg/actuation HFA aerosol inhaler (Flovent HFA) 1 puff inhalation BID 09/29/22 [History Last Taken Unknown] losartan 50 mg tablet 50 mg PO BID 09/29/22 [History Last Taken Unknown] montelukast 10 mg tablet 10 mg PO QPM 09/29/22 [History Last Taken Unknown] clopidogrel 75 mg tablet (Plavix) 75 mg PO QDAY #90 tabs 12/11/22 [Rx Last Taken Unknown] metoprolol tartrate 25 mg tablet 12.5 mg (1/2 x 25 mg) PO BID #180 tabs 12/26/22 [Rx Last Taken Unknown] albuterol sulfate 2.5 mg/3 mL (0.083 %) solution for nebulization 2.5 mg inhalation PRN PRN shortness of breath or wheezing 01/08/23 [History Last Taken Unknown] fluorometholone 0.1 % eye drops,suspension 1 drp ophthalmic (eye) DAILY 01/08/23 [History Last Taken Unknown] vibegron 75 mg tablet (Gemtesa) 75 mg PO DAILY 01/08/23 [History Last Taken Unknown] amlodipine 5 mg tablet 5 mg PO BID dose increased to twice daily #180 tabs 04/06/23 [Rx Last Taken Unknown] buspirone 15 mg tablet 15 mg PO BID 04/24/23 [History Last Taken Unknown] furosemide 40 mg tablet 20 mg (1/2 x 40 mg) PO DAILY edema #90 tabs 04/24/23 [Rx Last Taken Unknown] Allergy/AdvReac Type Severity Reaction Status Date / Time aspirin Allergy Intermediate heart Verified 05/15/23 20:43 races, dizziness povidone-iodine Allergy Intermediate rash Verified 05/15/23 20:43 [From Betadine] soap [From Betadine] Allergy Intermediate rash Verified 05/15/23 20:43 amitriptyline Allergy Unknown Unknown Verified 05/15/23 20:43 doxepin Allergy Unknown unknown Verified 05/15/23 20:43 guaifenesin [From Entex LA] Allergy Unknown Unknown Verified 05/15/23 20:43 latex Allergy Unknown Rash Verified 05/15/23 20:43 phenylephrine [From Entex LA] Allergy Unknown Unknown Verified 05/15/23 20:43 phenylpropanolamine Allergy Unknown Unknown Verified 05/15/23 20:43 [From Entex LA] pseudoephedrine Allergy Unknown heart races Verified 05/15/23 20:43 Sulfa (Sulfonamide Allergy Unknown Unknown Verified 05/15/23 20:43 Antibiotics) Family History Father Asthma Diabetes High cholesterol Heart disease Hypertension Mother Arthritis Diabetes Heart disease Hypertension Sister Arthritis Lupus Brother Arthritis Surgical History History of cardiac catheterization History of colonoscopy (05/27/21) History of coronary artery stent placement (10/14/21) History of coronary artery stent placement History of hysterectomy History of repair of rectocele Social History household members: spouse Smoking Status: Never smoker alcohol intake: never substance use type: does not use caffeine: Yes Type: tea Number of servings: 2 ROS <IRENE Cano - Last Filed: 05/15/23 22:10> ROS ED ROS Narrative Constitutional: Positive for fever, chills, malaise. CVS: Negative for chest pain, syncope. Respiratory: Positive for shortness of breath, cough. GI: Negative for apryl pain, nausea, vomiting. EXAM <IRENE Cano - Last Filed: 05/15/23 22:10> Physical Exam Narrative Exam Narrative: CONST: Patient appears ill but in no distress. EYES: Normal inspection. NECK: Normal inspection. RESP: No respiratory distress, mildly tachypneic around 24/minute, coarse lung sounds. CVS: Tachycardic with regular rhythm, no murmur, no gallop. ABD: Soft and nontender, no guarding or rebound, nondistended. SKIN: Color normal, no rash, warm, dry, intact. EXTREMITIES: Normal appearance, no pedal edema. NEURO: Oriented x4. PSYCH: Normal affect. Const Vital Signs: 05/15/23 20:36 05/15/23 20:36 05/15/23 20:36 Temperature 99.7 F H Temperature Source Oral Pulse Rate 103 H Respiratory Rate 26 H Respiratory Effort Short of Breath Respiratory Pattern Blood Pressure 126/86 H Blood Pressure Mean 99 Pulse Ox 94 88 Oxygen Delivery Method Nasal Cannula Room Air Room Air Oxygen Flow Rate (L/min) 2 05/15/23 21:55 05/15/23 21:41 Temperature 99.8 F H Temperature Source Oral Pulse Rate 98 100 Respiratory Rate 24 H 28 H Respiratory Effort Respiratory Pattern Tachypnea Blood Pressure 130/52 H Blood Pressure Mean 78 Pulse Ox 93 Oxygen Delivery Method Nasal Cannula Oxygen Flow Rate (L/min) 2 <Dr. Facundo Guzman DO - Last Filed: 05/15/23 22:22> Physical Exam Const Vital Signs: 05/15/23 20:36 05/15/23 20:36 05/15/23 20:36 Temperature 99.7 F H Temperature Source Oral Pulse Rate 103 H Respiratory Rate 26 H Respiratory Effort Short of Breath Respiratory Pattern Blood Pressure 126/86 H Blood Pressure Mean 99 Pulse Ox 94 88 Oxygen Delivery Method Nasal Cannula Room Air Room Air Oxygen Flow Rate (L/min) 2 05/15/23 21:55 05/15/23 21:41 Temperature 99.8 F H Temperature Source Oral Pulse Rate 98 100 Respiratory Rate 24 H 28 H Respiratory Effort Respiratory Pattern Tachypnea Blood Pressure 130/52 H Blood Pressure Mean 78 Pulse Ox 93 Oxygen Delivery Method Nasal Cannula Oxygen Flow Rate (L/min) 2 MDM <IRENE Cano - Last Filed: 05/15/23 22:10> MDM MDM Narrative Medical decision making narrative: History gathered from: Patient and spouse Patient tested positive for flu a and has been symptomatic x 2 days. Has had increased general weakness and shortness of breath. She appears ill but nontoxic. HR is 103, RR 26, and she was 88% on room air and placed on 2 L O2. She does not wear home oxygen. She has coarse lung sounds but no clear wheezing. She does use an inhaler at home and had not used it today so I ordered a DuoNeb. CBC is WNL. BMP shows creatinine of 1.37 which is slightly elevated from her baseline of 1.1?1.2. CXR shows a left retrocardiac infiltra te. She has no leukocytosis so this is more likely viral and I ordered Tamiflu. Case was discussed with the hospitalist for admission. Influenza A, pneumonia, COPD exacerbation, dehydration, electrolyte abnormality Lab Data Attestation: I reviewed the patient's lab results. Labs: Laboratory Results - last 24 hr 05/15/23 21:10 WBC 9.4 RBC 4.53 Hgb 13.7 Hct 42.5 MCV 93.8 MCH 30.2 MCHC 32.2 RDW Std Deviation 50.4 H RDW Coeff of Manas 14.6 Plt Count 269 MPV 9.0 Immature Gran % (Auto) 0.500 Neut % (Auto) 84.1 H Lymph % (Auto) 4.4 L [place] % (Auto) 10.3 H Eos % (Auto) 0.2 Baso % (Auto) 0.5 Absolute Neuts (auto) 7.9 H Absolute Lymphs (auto) 0.41 L Nucleated RBC % 0 Sodium 139 Potassium 4.4 Chloride 106 Carbon Dioxide 25.0 Anion Gap 8 BUN 23 H Creatinine 1.37 H Estim Creat Clear Calc 32.04 Est GFR (MDRD) Af Amer 48 L Est GFR (MDRD) Non-Af 39 L BUN/Creatinine Ratio 16.8 Glucose 210 H Calcium 9.3 Troponin I High Sens 19 Radiography Diagnostic Testing: Clinical Impression(s) from Imaging Studies Chest X-Ray 05/15/23 21:30 IMPRESSION: 1. Interstitial infiltrate in the retrocardiac LEFT lower lobe. No consolidation. 2. No congestive failure. Electronically Signed: Macario Zimmer MD at 21:44 EST , ED attending interpretation of 2 view chest x-ray shows normal heart size, no clear edema or infiltrate on my review. EKG Initial EKG: Attestation: I personally reviewed and interpreted this EKG as follows: Interpretation: Sinus Rhythm and No Acute Injury Pattern Comments: Normal sinus rhythm at 98 bpm No acute ischemic change <Dr. Facundo Guzman, DO - Last Filed: 05/15/23 22:22> [facility] Lab Data Labs: Laboratory Results - last 24 hr 05/15/23 21:10 WBC 9.4 RBC 4.53 Hgb 13.7 Hct 42.5 MCV 93.8 MCH 30.2 MCHC 32.2 RDW Std Deviation 50.4 H RDW Coeff of [place] 14.6 Plt Count 269 MPV 9.0 Immature Gran % (Auto) 0.500 Neut % (Auto) 84.1 H Lymph % (Auto) 4.4 L [place] % (Auto) 10.3 H Eos % (Auto) 0.2 Baso % (Auto) 0.5 Absolute Neuts (auto) 7.9 H Absolute Lymphs (auto) 0.41 L Nucleated RBC % 0 Sodium 139 Potassium 4.4 Chloride 106 Carbon Dioxide 25.0 Anion Gap 8 BUN 23 H Creatinine 1.37 H Estim Creat Clear Calc 32.04 Est GFR (MDRD) Af Amer 48 L Est GFR (MDRD) Non-Af 39 L BUN/Creatinine Ratio 16.8 Glucose 210 H Calcium 9.3 Troponin I High Sens 19 Radiography Diagnostic Testing: Clinical Impression(s) from Imaging Studies Chest X-Ray 05/15/23 21:30 IMPRESSION: 1. Interstitial infiltrate in the retrocardiac LEFT lower lobe. No consolidation. 2. No congestive failure. Electronically Signed: Macario Zimmer MD at 21:44 EST , Treatment and Re-Evaluation :: I have personally performed a face to face assessment of the patient and have reviewed the GAB Note. I performed a substantive portion of the visit including all aspects of the following. My sanchez findings include: History: Patient presents with shortness of breath that began yesterday. Patient states it is gradually getting worse. Patient states she fell out of her chair. Patient slid to the ground. Patient denies any injuries. Patient states she was too weak to get up. Patient admits to a cough but denies any sputum production. Patient admits to some subjective fevers. Patient denies any chest pain. Patient states her breathing is worse with any exertion. Patient recently tested positive for influenza A. Exam: Vital signs are stable except for tachypnea of 24. Patient is afebrile. Patient is in no acute distress. Oral mucosa is pink and moist. Neck is supple. Trachea is midline. There is no JVD. Heart was regular rate and rhythm. Lungs showed diffuse expiratory wheezing. There is good respiratory effort noted. Abdomen is soft. Bowel sounds are normal. There is no tenderness. Cranial nerves II through XII are intact. There are no focal motor or sensory deficits noted. Medical Decision Making: Differential diagnosis includes pneumonia, influenza, electrolyte abnormality, dehydration, cardiac dysrhythmia, and cardiac ischemia. EKG will be obtained to assess for cardiac dysrhythmia and cardiac ischemia. Chest x-ray will be obtained to assess for pneumonia and pneumothorax. CBC will be obtained to assess for leukocytosis and anemia. Basic metabolic profile will be obtained to assess for electrolyte abnormality and renal function. High- sensitivity troponin will be obtained to assess for cardiac ischemia. Patient was given a DuoNeb aerosol here. Patient was given IV fluids. Patient was started on Tamiflu. CBC was reviewed and was essentially within normal limits. Basic metabolic profile was reviewed. BUN was 23 and creatinine was 1.37. This is slightly increased from previous results. High-sensitivity troponin was reviewed and was normal at 19. PA and lateral chest x-ray was obtained. There are 2 views. On my independent interpretation, there is a infiltrate in the left lower lobe. There is no evidence of congestive heart failure. EKG was obtained. On my independent interpretation, it shows a normal sinus rhythm at 98. FL interval, QRS interval, and QTc intervals are within normal limits. There are no acute ST or T wave changes noted. Case was discussed with the hospitalist. He will admit the patient to his service. Patient understood and was agreeable with the plan. All questions were answered. Discharge Plan Triage Chief Complaint: Shortness of Breath ED Midlevel Provider: Araceli Rosario ED Provider: Facundo Guzman Dx/Rx/DC Orders Clinical Impression: Influenza A, Generalized weakness, Hypoxia, Pneumonia, viral Prescriptions: No Action azelastine 137 mcg (0.1 %) aerosol,spray 1 spray INTRANASAL BID loratadine [Claritin] 10 mg tablet 10 mg PO DAILY levothyroxine 100 mcg tablet 100 mcg PO Q OTHER DAY Rx Instructions: Alternate 50 mcg with 100 mcg. Flovent HFA 220 mcg/actuation HFA aerosol inhaler 1 puff inhalation BID potassium chloride 10 mEq tablet,ER particles/crystals 10 meq PO DAILY ergocalciferol (vitamin D2) 1,250 mcg (50,000 unit) capsule 50,000 unit PO SUWE Food drops 3 drp sublingual DAILY Melaleuca Peak Sr [facility] PO BID zyflamend 1 cap PO BID montelukast 10 mg tablet 10 mg PO QPM losartan 50 mg tablet 50 mg PO BID buspirone 15 mg tablet 15 mg PO BID furosemide 40 mg tablet 20 mg PO DAILY Qty: 90 3RF cascara sagrada 450 mg Capsule 450 mg PO BID levothyroxine 100 mcg tablet 50 mcg PO QODAY fluticasone propionate 50 mcg/actuation spray,suspension 1 spray INTRANASAL BID Gemtesa 75 mg tablet 75 mg PO DAILY albuterol sulfate 2.5 mg /3 mL (0.083 %) solution for nebulization 2.5 mg inhalation PRN PRN (Reason: shortness of breath or wheezing) fluorometholone 0.1 % drops,suspension 1 drp ophthalmic (eye) DAILY aspirin 81 mg tablet,delayed release (DR/EC) 81 mg PO 1700 Farxiga 10 mg tablet 10 mg PO DAILY clopidogrel [Plavix] 75 mg tablet 75 mg PO QDAY Qty: 90 3RF metoprolol tartrate 25 mg tablet 12.5 mg PO BID Qty: 180 3RF amlodipine 5 mg tablet 5 mg PO BID Qty: 180 3RF Primary Care Provider: Su Thomas Referrals: Su Thomas DO [Primary Care Provider] -
[2023-05-15 21:41] VITALS: PULSE 100; RESP 28
[2023-05-15 21:41] LABS: Anion Gap 8 (5-15); BUN 23 mg/dL (7-18); BUN/Creat Ratio 16.8 RATIO (10-20); Calcium,Total 9.3 mg/dL (8.5-10.1); Chloride 106 mmol/L (98-107); Creatinine, Serum 1.37 mg/dL (0.55-1.02); EST Glomerular Filtration Rate 39 mL/min (>60); Est Glom Filt Rate - Afr Amer 48 mL/min (>60); Estimated Creatinine Clearance 32.04 ml/min; Glucose 210 mg/dL (74-106); Potassium 4.4 mmol/L (3.5-5.1); Sodium Level 139 mmol/L (136-145)
[2023-05-15] MEDS: Ipratropium/Albuterol Sulfate 3 ML AMPUL.NEB INHALATION (21:41)
[2023-05-15 21:55] VITALS: BP 130/52; PULSE 98; RESP 24; TEMP 37.7; O2SAT 93
[2023-05-15 21:56] LABS: Troponin-I HS 19 pg/mL (3.0-54.0)
--- NOTE | 2023-05-15 22:01 | PCM.HP.STD ---
[facility] - General General Date of Admission: 05/15/23 Date of Service: 05/15/23 Chief Complaint: SOB. HPI Narrative CHIRAG RUFFIN, is a 77 F with a past medical history of essential hypertension, hyperlipidemia, hypothyroidism, diabetes mellitus type 2; of unknown control, diabetic neuropathy, obesity; with BMI 33.6 this admission, coronary artery disease; status post DC with subsequent stents x 2 (2020/2021), history of Takotsubo's cardiomyopathy, history of CHF, RA, fibromyalgia, allergic rhinitis, history of COVID-19, history of varicose veins, depression with anxiety and osteoarthritis; with chronic back pain who presents to [facility] ER complaining of shortness of breath. Ms. Ruffin reports her symptoms began approximately 2 days prior to admission with the abrupt onset of fever, chills and cough with shortness of breath. She then went to see her physician with her viral assay returning positive for influenza A. She also admits to generalized weakness with relatively poor oral intake. In the ER she was diagnosed with influenza A with a chest x-ray positive for interstitial retrocardiac left lower lobe infiltrate consistent with suspected evolving bacterial pneumonia complicated by laboratory evidence of dehydration and she was then admitted to the general medical floor under droplet and contact precautions for ongoing care for stay that is expected to be greater than 48 hours. [facility] Medical History Allergic rhinitis Ambulates with cane Anxiety Arthritis Asthma Atherosclerotic heart disease of [place] coronary artery without angina pectoris Back pain Cardiology follow-up encounter COVID-19 Depressive disorder Diabetes Diabetic neuropathy Dyspepsia Essential hypertension Fibromyalgia Hearing loss High cholesterol History of adenomatous polyp of colon History of coronary artery disease History of diabetes mellitus History of echocardiogram History of heart attack History of rheumatic fever History of steroid therapy History of tachycardia Hyperlipidemia Hypertension Hypothyroidism Insomnia Ischemic cardiomyopathy Left against medical advice (12/19/20) Non-STEMI (non-ST elevated myocardial infarction) (12/13/20) Obesity Osteoarthritis Positive colorectal cancer screening using Cologuard test Rheumatoid arthritis Tachycardia Takotsubo cardiomyopathy Thyroid disease Thyromegaly Varicosities of leg Vitamin D deficiency Walker as ambulation aid Wears dentures Wears glasses Wears hearing aid Home Medications azelastine 137 mcg (0.1 %) nasal spray aerosol 1 spray intranasal BID 01/29/18 [History Last Taken 03/08/22 08:00] loratadine 10 mg tablet (Claritin) 10 mg PO DAILY 01/29/18 [History Last Taken 03/07/22] cascara sagrada 450 mg capsule 450 mg PO BID SUPPLEMENT 12/19/20 [History Last Taken 03/08/22 17:00] levothyroxine 100 mcg tablet 50 mcg PO QODAY THYROID 12/19/20 [History Last Taken 03/08/22 07:00] levothyroxine 100 mcg tablet 100 mcg PO Q OTHER DAY 02/28/21 [History Last Taken 03/07/22 07:00] aspirin 81 mg tablet,delayed release 81 mg PO 1700 heart health 05/22/21 [History Last Taken 03/08/22 17:00] ergocalciferol (vitamin D2) 1,250 mcg (50,000 unit) capsule 50,000 unit PO SUWE vitamin 05/28/21 [History Last Taken 03/05/22] fluticasone propionate 50 mcg/actuation nasal spray,suspension 1 spray intranasal BID 05/28/21 [History Last Taken 03/08/22 08:00] potassium chloride 10 mEq tablet,extended release(part/cryst) 10 meq PO DAILY 05/28/21 [History Last Taken 03/08/22 08:00] dapagliflozin propanediol 10 mg tablet (Farxiga) 10 mg PO DAILY per Dr. Thomas 10/08/21 [History Last Taken 03/08/22 08:00] Food drops 3 drp sublingual DAILY 12/05/21 [History Last Taken Unknown] Melaleuca [facility] PO BID 12/05/21 [History Last Taken Unknown] zyflamend 1 cap PO BID neuropathy 12/05/21 [History Last Taken 03/08/22 17:00] fluticasone propionate 220 mcg/actuation HFA aerosol inhaler (Flovent HFA) 1 puff inhalation BID 09/29/22 [History Last Taken Unknown] losartan 50 mg tablet 50 mg PO BID 09/29/22 [History Last Taken Unknown] montelukast 10 mg tablet 10 mg PO QPM 09/29/22 [History Last Taken Unknown] clopidogrel 75 mg tablet (Plavix) 75 mg PO QDAY #90 tabs 12/11/22 [Rx Last Taken Unknown] metoprolol tartrate 25 mg tablet 12.5 mg (1/2 x 25 mg) PO BID #180 tabs 12/26/22 [Rx Last Taken Unknown] albuterol sulfate 2.5 mg/3 mL (0.083 %) solution for nebulization 2.5 mg inhalation PRN PRN shortness of breath or wheezing 01/08/23 [History Last Taken Unknown] fluorometholone 0.1 % eye drops,suspension 1 drp ophthalmic (eye) DAILY 01/08/23 [History Last Taken Unknown] vibegron 75 mg tablet (Gemtesa) 75 mg PO DAILY 01/08/23 [History Last Taken Unknown] amlodipine 5 mg tablet 5 mg PO BID dose increased to twice daily #180 tabs 04/06/23 [Rx Last Taken Unknown] buspirone 15 mg tablet 15 mg PO BID 04/24/23 [History Last Taken Unknown] furosemide 40 mg tablet 20 mg (1/2 x 40 mg) PO DAILY edema #90 tabs 04/24/23 [Rx Last Taken Unknown] Allergy/AdvReac Type Severity Reaction Status Date / Time aspirin Allergy Intermediate heart Verified 05/15/23 20:43 races, dizziness povidone-iodine Allergy Intermediate rash Verified 05/15/23 20:43 [From Betadine] soap [From Betadine] Allergy Intermediate rash Verified 05/15/23 20:43 amitriptyline Allergy Unknown Unknown Verified 05/15/23 20:43 doxepin Allergy Unknown unknown Verified 05/15/23 20:43 guaifenesin [From Entex LA] Allergy Unknown Unknown Verified 05/15/23 20:43 latex Allergy Unknown Rash Verified 05/15/23 20:43 phenylephrine [From Entex LA] Allergy Unknown Unknown Verified 05/15/23 20:43 phenylpropanolamine Allergy Unknown Unknown Verified 05/15/23 20:43 [From Entex LA] pseudoephedrine Allergy Unknown heart races Verified 05/15/23 20:43 Sulfa (Sulfonamide Allergy Unknown Unknown Verified 05/15/23 20:43 Antibiotics) Family History Father Asthma Diabetes High cholesterol Heart disease Hypertension Mother Arthritis Diabetes Heart disease Hypertension Sister Arthritis Lupus Brother Arthritis Surgical History History of cardiac catheterization History of colonoscopy (05/27/21) History of coronary artery stent placement (10/14/21) History of coronary artery stent placement History of hysterectomy History of repair of rectocele Social History household members: spouse Smoking Status: Never smoker alcohol intake: never substance use type: does not use caffeine: Yes Type: tea Number of servings: 2 ROS ROS Narrative Review of systems: General: Patient admits to subjective fever, chills and malaise HENT: Patient admits to stuffy nose and chest congestion but denies headache EYES: Denies changes in vision or discharge from eyes Resp: Patient admits to shortness of breath and nonproductive cough Cardiac: Denies chest pain or palpitations GI: Minimal abdominal pain, denies changes in bowel, denies nausea or vomiting. : Denies changes in urination Extremity: Denies swelling Musculoskeletal: Feels somewhat generally weak and unwell Neuro: Denies any numbness/tingling or any other focal neurologic deficits Heme: Denies any bleeding or bruising Skin: Denies rashes Psychiatric: No complaints voiced related to uncontrolled depression or anxiety Endocrine: No polyuria, polydipsia or polyphagia The rest of the 14 point ROS was negative except for positives in HPI. Vital Signs Vital Signs Vital Signs: 05/15/23 20:36 05/15/23 20:36 05/15/23 20:36 Temperature 99.7 F H Temperature Source Oral Pulse Rate 103 H Respiratory Rate 26 H Respiratory Effort Short of Breath Blood Pressure 126/86 H Blood Pressure Mean 99 Pulse Ox 94 88 Oxygen Delivery Method Nasal Cannula Room Air Room Air Oxygen Flow Rate (L/min) 2 05/15/23 21:55 Temperature 99.8 F H Temperature Source Oral Pulse Rate 98 Respiratory Rate 24 H Respiratory Effort Blood Pressure 130/52 H Blood Pressure Mean 78 Pulse Ox 93 Oxygen Delivery Method Nasal Cannula Oxygen Flow Rate (L/min) 2 Weight Weight: 177 lb 14.609 oz Body Mass Index (BMI) 33.6 Physical Exam Const alert and oriented x3 Constitutional Narrative: Patient is obese and appears acutely ill. General Appearance: cooperative HEENT normocephalic, head/scalp atraumatic and hearing grossly normal bilaterally HEENT Narrative: Mucous membranes dry. Eyes PERRL and EOMs intact bilaterally Neck no lymphadenopathy and supple Resp Resp Narrative: Diminished breath sounds throughout with scattered rhonchi Auscultation: rhonchi Cardio regular rate and regular rhythm Cardio Narrative: Tachycardia noted. GI normal to inspection, nondistended, normoactive bowel sounds, soft to palpation, non-tender and non-distended Extremity normal to inspection and full ROM Neuro oriented x3, CN's II-XII intact bilaterally, moves all extremities and no focal motor deficits Sensorium / Orientation: awake, alert, oriented to person, oriented to place and oriented to time Speech: speech normal Motor Exam: strength 5/5 throughout Psych affect normal Results Medical Records Data Attestation: I reviewed the patient's medical records Lab / Micro Data Attestation: I reviewed the patient's lab results. 05/16/23 05:45 05/16/23 05:45 Labs: Laboratory Results - last 24 hr 05/15/23 21:10: WBC 9.4, RBC 4.53, Hgb 13.7, Hct 42.5, MCV 93.8, MCH 30.2, MCHC 32.2, RDW Std Deviation 50.4 H, RDW Coeff of Manas 14.6, Plt Count 269, MPV 9.0, Immature Gran % (Auto) 0.500, Neut % (Auto) 84.1 H, Lymph % (Auto) 4.4 L, [place] % (Auto) 10.3 H, Eos % (Auto) 0.2, Baso % (Auto) 0.5, Absolute Neuts (auto) 7.9 H, Absolute Lymphs (auto) 0.41 L, Nucleated RBC % 0, Sodium 139, Potassium 4.4, Chloride 106, Carbon Dioxide 25.0, Anion Gap 8, BUN 23 H, Creatinine 1.37 H, Estim Creat Clear Calc 32.04, Est GFR (MDRD) Af Amer 48 L, Est GFR (MDRD) Non-Af 39 L, BUN/Creatinine Ratio 16.8, Glucose 210 H, Calcium 9.3, Troponin I High Sens 19 Imaging Radiology Impression Chest X-Ray 05/15/23 21:30 IMPRESSION: 1. Interstitial infiltrate in the retrocardiac LEFT lower lobe. No consolidation. 2. No congestive failure. Electronically Signed: Macario Zimmer MD at 21:44 EST , Assessment & Plan Assessment/Plan (1) Influenza A: (2) Pneumonia: QUALIFIERS: Pneumonia type: due to unspecified organism Laterality: left Lung location: unspecified part of lung Qualified Code(s): J18.9 - Pneumonia, unspecified organism (3) Respiratory insufficiency: (4) Generalized weakness: (5) Dehydration: PLAN: Plan 1. Acute influenza A - Admit to the PCU under contact and droplet precautions. Continue Tamiflu began in the ER and add vitamin D3, vitamin C and zinc to help boost immunity and speed recovery. Give Tylenol as needed pain or fever. 2. Left lower lobe infiltrate consistent with suspected evolving bacterial pneumonia complicating #1 - Start doxycycline 100 mg IV twice daily and await culture and sensitivity data. Give Mucinex to thin secretions and help with cough. 3. Acute hypoxic respiratory insufficiency arising from #1 & #2 - Wean supplemental oxygen as tolerated. 4. Mild dehydration due to poor oral intake arising from #1 - #3 - Give IV fluid to replete volume and recheck BMP in the a.m. to ensure improvement. 5. Essential hypertension - Continue current treatment regimen plus give as needed IV hydralazine for systolic blood pressure greater than 160 mmHg. 6. Hyperlipidemia - Resume statin. 7. Hypothyroidism - Continue Synthroid as previous and check TSH. 8. Diabetes mellitus type 2; of unknown control with diabetic neuropathy - ADA diet. Fingerstick blood sugars before every meal and at bedtime + scale insulin. Check hemoglobin A1c to objectively assess quality of diabetic control. 9. Obesity; with BMI 33.6 this admission - Weight loss will be recommended. 10. Coronary artery disease; status post DC with subsequent stents x 2 (2020/2021) - Noted. Continue home medications as previous. 11. History of Takotsubo's cardiomyopathy - Noted. 12. History of CHF - Stable with patient dehydrated on admission. 13. RA - Stable with no evidence of acute flare. 14. Fibromyalgia - Stable. 15. Allergic rhinitis - Resume fluticasone and azelastine nasal sprays. 16. History of COVID-19 - Noted. 17. History of varicose veins - Noted. 18. Depression with anxiety - Home regimen to continue. 19. Osteoarthritis; with chronic back pain - 20. DVT prophylaxis - Lovenox 40 mg subcu daily. Total time: Approximately 55 minutes. Charges/Coding Visit Charges Inpatient E&M: 88851 Init Hosp L2
[2023-05-15] MEDS: Oseltamivir Phosphate 75 MG Capsule PO (22:22)
[2023-05-15 22:25] VITALS: BP 109/54; PULSE 97; RESP 20; TEMP 37.6; O2SAT 95
[2023-05-15 23:00] VITALS: BP 108/56; PULSE 87; RESP 22; TEMP 37.3; O2SAT 94
[2023-05-16] VITALS (9 sets, daily range): BP systolic 102–153; BP diastolic 44–61; PULSE 75–98; RESP 16–24; TEMP 36.9–38.3; O2SAT 93–98; BMI 32.9
[2023-05-16] MEDS: 0.9% Normal Saline (1000mL) 1,000 ML 100 ML IV ×2 (00:31→10:36)
[2023-05-16] MEDS: Doxycycline 100 MG in Dextrose 5%-Water (250mL Bag) 250 ML 250 MG IV (02:42)
[2023-05-16 06:08] LABS: Absolute Lymphocyte Count 0.99 X10^3/uL (0.83-4.51); Absolute Neutrophil Count 5.6 X10^3/uL (2.0-7.7); Basophil# 0.05 X10^3/uL; Basophil% 0.6 % (0-1); Eosinophil# 0.05 X10^3/uL; Eosinophils% 0.6 % (0-5); Hematocrit 43.2 % (37-47); Hemoglobin 13.9 g/dL (12.0-15.0); Lymphocyte # 0.99 X10^3/ul (0.83-4.51); Lymphocyte % 12.7 % (19-41); Mean Corp Hgb Conc 32.2 g/dL (32-36); Mean Corpuscular Volume 96.2 fL (81-99); Mean Platelet Vol. 9.1 fl (6.2-12.0); Monocyte# 1.02 X10^3/uL; Monocyte% 13.1 % (0-10); NRBC Flagged by Analyzer 0 % (0-5); Neutrophil # 5.64 X10^3/uL (2.7-7.7); Neutrophil % 72.7 % (47-70); Platelet Count 249 K/mm3 (150-450); RBC Distribution Width CV 14.8 % (11.6-14.6); RBC Distribution Width SD 52.8 fl (35.1-43.9); Red Blood Count 4.49 M/mm3 (4.2-5.4); White Blood Count 7.8 K/mm3 (4.4-11.0)
[2023-05-16 07:07] LABS: Anion Gap 5 (5-15); BUN 23 mg/dL (7-18); BUN/Creat Ratio 18.1 RATIO (10-20); Calcium,Total 8.5 mg/dL (8.5-10.1); Chloride 107 mmol/L (98-107); Creatinine, Serum 1.27 mg/dL (0.55-1.02); EST Glomerular Filtration Rate 43 mL/min (>60); Est Glom Filt Rate - Afr Amer 52 mL/min (>60); Glucose 148 mg/dL (74-106); Magnesium 2.2 mg/dL (1.6-2.6); Phosphorus 4.8 mg/dL (2.5-4.9); Potassium 3.7 mmol/L (3.5-5.1); Sodium Level 139 mmol/L (136-145); Thyroid Stim Hormone (TSH) 1.86 uIU/mL (0.358-3.74)
[2023-05-16 07:08] LABS: Bedside Glucose 135 mg/dL (74-106)
--- NOTE | 2023-05-16 07:54 | PN.HOSP_ITS ---
Reason for Visit Reason for Visit: Diagnoses Dehydration (05/15/23) Influenza due to other identified influenza virus with other respiratory manifestations (05/15/23) Pneumonia, unspecified organism (05/15/23) Other abnormalities of breathing (05/15/23) Weakness (05/15/23) Subjective Subjective Breathing okay. Feels weak. Objective Data Objective Data Vital Signs: Vital Signs Temp Pulse Resp BP Pulse Ox O2 Del Method O2 Flow Rate 36.9 C 78 16 126/53 H 93 Nasal Cannula 2 05/16/23 06:38 05/16/23 06:38 05/16/23 06:38 05/16/23 06:38 05/16/23 06:38 05/16/23 06:38 05/16/23 06:38 Oxygen Flow Rate (L/min) 2 Oxygen Delivery Method Nasal Cannula Weight: 79.1 kg Body Mass Index (BMI) 32.9 Intake & Output: Intake and Output for Last 24 Hours 05/14/23 05/15/23 05/16/23 23:59 23:59 23:59 Intake Total 1000 / 1000 260 / 260 Output Total 300 / 300 Balance 1000 / 1000 -40 / -40 Lab / Micro Data 05/16/23 05:45 05/16/23 05:45 Labs: Laboratory Results - last 24 hr 05/15/23 21:10: WBC 9.4, RBC 4.53, Hgb 13.7, Hct 42.5, MCV 93.8, MCH 30.2, MCHC 32.2, RDW Std Deviation 50.4 H, RDW Coeff of Manas 14.6, Plt Count 269, MPV 9.0, Immature Gran % (Auto) 0.500, Neut % (Auto) 84.1 H, Lymph % (Auto) 4.4 L, [place] % (Auto) 10.3 H, Eos % (Auto) 0.2, Baso % (Auto) 0.5, Absolute Neuts (auto) 7.9 H, Absolute Lymphs (auto) 0.41 L, Nucleated RBC % 0, Sodium 139, Potassium 4.4, Chloride 106, Carbon Dioxide 25.0, Anion Gap 8, BUN 23 H, Creatinine 1.37 H, Estim Creat Clear Calc 32.04, Est GFR (MDRD) Af Amer 48 L, Est GFR (MDRD) Non-Af 39 L, BUN/Creatinine Ratio 16.8, Glucose 210 H, Calcium 9.3, Troponin I High Sens 19 05/16/23 05:45: WBC 7.8, RBC 4.49, Hgb 13.9, Hct 43.2, MCV 96.2, MCH 31.0, MCHC 32.2, RDW Std Deviation 52.8 H, RDW Coeff of Manas 14.8 H, Plt Count 249, MPV 9.1, Immature Gran % (Auto) 0.300, Neut % (Auto) 72.7 H, Lymph % (Auto) 12.7 L, [place] % (Auto) 13.1 H, Eos % (Auto) 0.6, Baso % (Auto) 0.6, Absolute Neuts (auto) 5.6, Absolute Lymphs (auto) 0.99, Nucleated RBC % 0, Sodium 139, Potassium 3.7, Chloride 107, Carbon Dioxide 27.0, Anion Gap 5, BUN 23 H, Creatinine 1.27 H, Estim Creat Clear Calc 34.20, Est GFR (MDRD) Af Amer 52 L, Est GFR (MDRD) Non-Af 43 L, BUN/Creatinine Ratio 18.1, Glucose 148 H, Calcium 8.5, Phosphorus 4.8, Magnesium 2.2, TSH 1.86 05/16/23 06:43: POC Glucose 135 H Micro: Microbiology 05/16/23 06:24 Urine, Clean Catch Legionella Antigen - Final 05/16/23 06:24 Urine, Clean Catch Streptococcus pneumoniae Antigen (M - Final Radiography Diagnostic Testing: Radiology Impression Chest X-Ray 05/15/23 21:30 IMPRESSION: 1. Interstitial infiltrate in the retrocardiac LEFT lower lobe. No consolidation. 2. No congestive failure. Electronically Signed: Macario Zimmer MD at 21:44 EST , Physical Exam Const alert and no apparent distress HEENT head/scalp atraumatic and moist oral mucous membranes Resp normal respiratory effort, no retractions, no use of accessory muscles and clear to auscultation bilaterally Cardio regular rate, regular rhythm, S1 normal heart sound and S2 normal heart sound GI normal to inspection, nondistended, normoactive bowel sounds, soft to palpation, non-tender and non-distended Neuro Sensorium / Orientation: awake and alert Assessment & Plan Assessment/Plan (1) Influenza A: (2) Respiratory insufficiency: (3) Generalized weakness: (4) Dehydration: PLAN: Plan Acute influenza A * on oseltamivir * Chest x-ray reviewed and appreciate any infiltrate. Will discontinue antibiotics and observe. * continue BDs. * check home oxygen eval Debility * Patient very weak and feeble. * PT OT evaluate and treat. Chronic conditions: * Essential hypertension - Continue current treatment regimen plus give as needed IV hydralazine for systolic blood pressure greater than 160 mmHg. * Hyperlipidemia - Resume statin. * Hypothyroidism - Continue Synthroid. TSH WNL * Diabetes mellitus type 2; of unknown control with diabetic neuropathy - ADA diet. Fingerstick blood sugars before every meal and at bedtime + scale insulin. a1c pending. * Obesity; with BMI 33.6 this admission - Weight loss will be recommended. * Coronary artery disease; status post NC with subsequent stents x 2 () - Noted. Continue home medications as previous. * History of Takotsubo's cardiomyopathy - Noted. * History of CHF * RA - Stable with no evidence of acute flare. * Fibromyalgia - Stable. * Allergic rhinitis - Resume fluticasone and azelastine nasal sprays. * Depression with anxiety - Home regimen to continue. * Osteoarthritis; with chronic back pain - DVT prophylaxis - Lovenox 40 mg subcu daily. Charges/Coding Visit Charges Inpatient E&M: 67202 Subs Hosp L2
[2023-05-16 08:47] LABS: Hemoglobin A1c 6.9 % (3.8-5.6)
[2023-05-16] MEDS: Oseltamivir Phosphate 30 MG Capsule PO ×2 (09:15→21:13)
[2023-05-16] MEDS: Enoxaparin 40 MG/0.4 ML Syringe SC (09:15)
[2023-05-16] MEDS: Ascorbic Acid 500 MG Tablet 1000 MG PO ×2 (09:15→17:29)
[2023-05-16] MEDS: Glucerna Shake 120 ML LIQUID PO ×3 (09:15→17:28)
[2023-05-16] MEDS: Cholecalciferol (Vit D3) 125 MCG CAPSULE (5,000 UNITS) PO (09:16)
[2023-05-16] MEDS: Zinc Sulfate 50 mg zinc (220 mg) ORAL capsule PO (09:16)
[2023-05-16] MEDS: Acetaminophen 325 MG Tablet 650 MG PO (09:25)
[2023-05-16] MEDS: Benzonatate 100 MG Capsule PO ×3 (09:26→19:18)
--- NOTE | 2023-05-16 11:27 | CPS ---
SMI and Pep held. Pt unavailable, nursing care being administered
[2023-05-16] MEDS: Insulin Lispro 100 UNIT/ML INSULN.PEN SC (11:38)
[2023-05-16 12:02] LABS: Bedside Glucose 219 mg/dL (74-106)
--- NOTE | 2023-05-16 13:45 | CASEMGMT ---
CHRIS SMALL Discharge Planning Assessment: Face to Face with patient for initial transition planning/care coordination assessment. CHRIS SMALL introduced self and role at [facility], pt voices understanding. Pt alert, sitting up in bed and answering questions appropriately. Pt agreeable to participating in assessment with spouse at bedside.? Care providers, pharmacy, and demographics verified. Admitting dx: Influenza A, pneumonia LACE Strata: 3 PCP: Martha Uriostegui Pharmacy: [facility] Insurance: [employer] and [employer] Prescription Benefit: yes Living Will/HPOA: none LNOK: spouse Eugene Living Arrangements:Pt resides with her spouse and grandson in a mobile home with ramp entrance. Pt states she requires assistance from her spouse with ADLs. They have a cleaning lady that comes every Thursday from [employer]. Pt states she is approved for additional hours but they do not have the staffing to provide it. Grandson works and is not available to provide assistance 20/10. Transportation: pt's spouse drives or grandson DME: shower chair, grab bars, rollator, transfer w/c, electric scooter, pulse oximeter, hospital bed, medical alert button, and a lift chair. Side Seam Machine Operator: Chana Montiel from [facility]. HHC: Pt states she is currently a pt of [facility] HH services. SNF: denies any previous providers. Pt?s goal: return home when able. Reviewed therapy evaluation and need for two assist with pt and pt's spouse and expected need for additional therapy at discharge prior to returning home. Discussed with Dr. Bermudez who is in agreement. Pt agreeable to SNF at discharge. List of SNF in network with pt's insurance provider and consistent with pt's preferred geographical area and medical needs and including quality and resource use data provided to pt from [employer] guide. Pt to review with her spouse for first, second and third choices. Will follow-up with pt on Thursday for choice and submit referrals at that time. Acceptance and precert will be needed at that time. Plan: SNF pending pt choice and referral and prior auth process. Flaquita Roberson RN ACM
[2023-05-16 16:26] LABS: Bedside Glucose 128 mg/dL (74-106)
[2023-05-16] MEDS: Ipratropium/Albuterol Sulfate 3 ML AMPUL.NEB INHALATION (20:25)
[2023-05-16] MEDS: 0.9% Normal Saline (1000mL) 1,000 ML 15 ML IV (20:36)
[2023-05-16] MEDS: MethylPREDNISolone 125 MG/2 ML Vial 60 MG IV (21:13)
[2023-05-16] MEDS: Montelukast 10 MG Tablet PO (21:21)
[2023-05-16 23:24] LABS: Bedside Glucose 149 mg/dL (74-106)
[2023-05-17] VITALS (8 sets, daily range): BP systolic 131–146; BP diastolic 56–65; PULSE 75–89; RESP 16–18; TEMP 36.3–36.9; O2SAT 92–96; BMI 33.0
[2023-05-17] MEDS: Ipratropium/Albuterol Sulfate 3 ML AMPUL.NEB INHALATION ×3 (03:47→12:55)
[2023-05-17] MEDS: Benzonatate 100 MG Capsule PO ×2 (04:06→11:07)
[2023-05-17] MEDS: Insulin Lispro 100 UNIT/ML INSULN.PEN SC ×2 (06:42→11:07)
[2023-05-17 07:03] LABS: Bedside Glucose 258 mg/dL (74-106)
--- NOTE | 2023-05-17 07:46 | PN.HOSP_ITS ---
Reason for Visit Reason for Visit: Diagnoses Dehydration (05/15/23) Influenza due to other identified influenza virus with other respiratory manifestations (05/15/23) Pneumonia, unspecified organism (05/15/23) Other abnormalities of breathing (05/15/23) Weakness (05/15/23) Subjective Subjective Feels well. Does require some assistance with ambulation but this is actually at her baseline where her and other family member help her at home. Objective Data Objective Data Vital Signs: Vital Signs Temp Pulse Resp BP Pulse Ox O2 Del Method O2 Flow Rate 36.5 C L 82 18 131/64 H 95 Nasal Cannula 2 05/17/23 03:31 05/17/23 06:47 05/17/23 06:47 05/17/23 03:31 05/17/23 06:47 05/17/23 06:47 05/17/23 06:47 Oxygen Flow Rate (L/min) 2 Oxygen Delivery Method Nasal Cannula Weight: 79.2 kg Body Mass Index (BMI) 33.0 Intake & Output: Intake and Output for Last 24 Hours 05/15/23 05/16/23 05/17/23 23:59 23:59 23:59 Intake Total 1000 / 1000 2500 / 2500 240 / 240 Output Total 1400 / 1400 700 / 700 Balance 1000 / 1000 1100 / 1100 -460 / -460 Lab / Micro Data 05/16/23 05:45 05/16/23 05:45 Labs: Laboratory Results - last 24 hr 05/16/23 05:45: Hemoglobin A1c 6.9 H 05/16/23 11:33: POC Glucose 219 H 05/16/23 16:01: POC Glucose 128 H 05/16/23 21:11: POC Glucose 149 H 05/17/23 06:40: POC Glucose 258 H Micro: Microbiology 05/16/23 06:24 Urine, Clean Catch Legionella Antigen - Final 05/16/23 06:24 Urine, Clean Catch Streptococcus pneumoniae Antigen (M - Final Physical Exam Const alert and no apparent distress Resp normal respiratory effort, no retractions, no use of accessory muscles and clear to auscultation bilaterally Cardio regular rate, regular rhythm, S1 normal heart sound and S2 normal heart sound GI normal to inspection, nondistended, normoactive bowel sounds Assessment & Plan Assessment/Plan (1) Influenza A: PLAN: Plan Acute influenza A * on oseltamivir * Chest x-ray reviewed and appreciate any infiltrate. Will discontinue antibiotics and observe. * continue BDs. * Patient did well and will not require oxygen upon discharge. Debility * Patient very weak and feeble. * PT OT evaluate and treat. * Patient does require assistance with ambulation but is at her baseline. came in and verified and they are comfortable taking the patient home. Chronic conditions: * Essential hypertension - Continue current treatment regimen plus give as needed IV hydralazine for systolic blood pressure greater than 160 mmHg. * Hyperlipidemia - Resume statin. * Hypothyroidism - Continue Synthroid. TSH WNL * Diabetes mellitus type 2; of unknown control with diabetic neuropathy - ADA diet. Fingerstick blood sugars before every meal and at bedtime + scale insulin. a1c pending. * Obesity; with BMI 33.6 this admission - Weight loss will be recommended. * Coronary artery disease; status post [place] with subsequent stents x 2 (2020/2021) - Noted. Continue home medications as previous. * History of Takotsubo's cardiomyopathy - Noted. * History of CHF * RA - Stable with no evidence of acute flare. * Fibromyalgia - Stable. * Allergic rhinitis - Resume fluticasone and azelastine nasal sprays. * Depression with anxiety - Home regimen to continue. * Osteoarthritis; with chronic back pain - Discharge home
[2023-05-17] MEDS: Enoxaparin 40 MG/0.4 ML Syringe SC (08:56)
[2023-05-17] MEDS: Oseltamivir Phosphate 30 MG Capsule PO (08:56)
[2023-05-17] MEDS: Cholecalciferol (Vit D3) 125 MCG CAPSULE (5,000 UNITS) PO (08:56)
[2023-05-17] MEDS: Ascorbic Acid 500 MG Tablet 1000 MG PO (08:56)
[2023-05-17] MEDS: Glucerna Shake 120 ML LIQUID PO ×2 (08:56→11:07)
[2023-05-17] MEDS: Zinc Sulfate 50 mg zinc (220 mg) ORAL capsule PO (08:57)
[2023-05-17 11:32] LABS: Bedside Glucose 289 mg/dL (74-106)
--- NOTE | 2023-05-17 11:41 | PCM.DC.SUM ---
Providers Date of Admission: 05/15/23 Primary Care Physician: Dr. Su Thomas DO Reason For Visit: ACUTE INFLUENZA A, LEFT LOWER LOBE BACTERIAL PNEUM Diagnosis Discharge Diagnosis (1) Influenza A: Status: Acute Code(s): J10.1 - Influenza due to other identified influenza virus with other respiratory manifestations Plan Acute influenza A on oseltamivir Chest x-ray reviewed and appreciate any infiltrate. Will discontinue antibiotics and observe. continue BDs. Patient did well and will not require oxygen upon discharge. Debility Patient very weak and feeble. PT OT evaluate and treat. Patient does require assistance with ambulation but is at her baseline. came in and verified and they are comfortable taking the patient home. Chronic conditions: Essential hypertension - Continue current treatment regimen plus give as needed IV hydralazine for systolic blood pressure greater than 160 mmHg. Hyperlipidemia - Resume statin. Hypothyroidism - Continue Synthroid. TSH WNL Diabetes mellitus type 2; of unknown control with diabetic neuropathy - ADA diet. Fingerstick blood sugars before every meal and at bedtime + scale insulin. a1c pending. Obesity; with BMI 33.6 this admission - Weight loss will be recommended. Coronary artery disease; status post [place] with subsequent stents x 2 (2020/2021) - Noted. Continue home medications as previous. History of Takotsubo's cardiomyopathy - Noted. History of CHF RA - Stable with no evidence of acute flare. Fibromyalgia - Stable. Allergic rhinitis - Resume fluticasone and azelastine nasal sprays. Depression with anxiety - Home regimen to continue. Osteoarthritis; with chronic back pain - Discharge home Medications at Discharge Home Medications azelastine 137 mcg (0.1 %) nasal spray aerosol 1 spray intranasal BID 01/29/18 loratadine 10 mg tablet (Claritin) 10 mg PO DAILY 01/29/18 levothyroxine 100 mcg tablet 50 mcg PO QODAY THYROID 12/19/20 levothyroxine 100 mcg tablet 100 mcg PO Q OTHER DAY 02/28/21 aspirin 81 mg tablet,delayed release 81 mg PO 1700 heart health 05/22/21 ergocalciferol (vitamin D2) 1,250 mcg (50,000 unit) capsule 50,000 unit PO SUWE vitamin 05/28/21 fluticasone propionate 50 mcg/actuation nasal spray,suspension 1 spray intranasal BID 05/28/21 potassium chloride 10 mEq tablet,extended release(part/cryst) 10 meq PO DAILY 05/28/21 dapagliflozin propanediol 10 mg tablet (Farxiga) 10 mg PO DAILY per Dr. Thomas 10/08/21 Food drops 3 drp sublingual DAILY 12/05/21 Melaleuca Peak Sr [facility] PO BID 12/05/21 zyflamend 1 cap PO BID neuropathy 12/05/21 fluticasone propionate 220 mcg/actuation HFA aerosol inhaler (Flovent HFA) 1 puff inhalation BID 09/29/22 losartan 50 mg tablet 50 mg PO BID 09/29/22 montelukast 10 mg tablet 10 mg PO QPM 09/29/22 clopidogrel 75 mg tablet (Plavix) 75 mg PO QDAY #90 tabs 12/11/22 metoprolol tartrate 25 mg tablet 12.5 mg (1/2 x 25 mg) PO BID #180 tabs 12/26/22 albuterol sulfate 2.5 mg/3 mL (0.083 %) solution for nebulization 2.5 mg inhalation PRN PRN shortness of breath or wheezing 01/08/23 fluorometholone 0.1 % eye drops,suspension 1 drp ophthalmic (eye) DAILY 01/08/23 vibegron 75 mg tablet (Gemtesa) 75 mg PO DAILY 01/08/23 amlodipine 5 mg tablet 5 mg PO BID dose increased to twice daily #180 tabs 04/06/23 buspirone 15 mg tablet 15 mg PO BID 04/24/23 furosemide 40 mg tablet 20 mg (1/2 x 40 mg) PO DAILY edema #90 tabs 04/24/23 oseltamivir 30 mg capsule 30 mg PO BID #7 caps 05/17/23 Hospital Course Operations None Procedures None Summary of Care Provided Minutes Spent on Discharge: 28 Hospital Course: Patient presented with shortness of breath and weakness. Patient was found to have influenza. Patient was started on Tamiflu. Patient did require oxygen but was evaluated today and is actually requiring just room air with rest and activity. Patient is weak and does require assistance with ambulation but this is her baseline given her history of prior stroke. came in and verify that they are comfortable for the patient to return home. Weight / BMI Weight Weight: 79.2 kg Body Mass Index (BMI) 33.0 ABG / Lab / Microbiology Data 05/16/23 05:45 02/17/24 05:45 Laboratory: Laboratory Results - last 24 hr 05/16/23 11:33: POC Glucose 219 H 05/16/23 16:01: POC Glucose 128 H 05/16/23 21:11: POC Glucose 149 H 05/17/23 06:40: POC Glucose 258 H 05/17/23 11:05: POC Glucose 289 H Microbiology: Microbiology 05/16/23 06:24 Urine, Clean Catch Legionella Antigen - Final 05/16/23 06:24 Urine, Clean Catch Streptococcus pneumoniae Antigen (M - Final D/C Instructions Discharge Diet: 1999 Calorie Control Diet Meaningful Use Info Meaningful Use Diagnoses (Choose all that apply): None applicable Discharge Plan Admission Admit Date/Time: 05/15/23 23:19 Primary Reason for Your Visit: Influenza A Attending Provider: Facundo Bermudez Primary Care Provider: Su Thomas Consulting Providers: Frank Upton Discharge Orders/Prescriptions Prescriptions: New oseltamivir 30 mg Capsule 30 mg PO BID Qty: 7 0RF Continued azelastine 137 mcg (0.1 %) aerosol,spray 1 spray INTRANASAL BID loratadine [Claritin] 10 mg tablet 10 mg PO DAILY levothyroxine 100 mcg tablet 100 mcg PO Q OTHER DAY Rx Instructions: Alternate 50 mcg with 100 mcg. Flovent HFA 220 mcg/actuation HFA aerosol inhaler 1 puff inhalation BID potassium chloride 10 mEq tablet,ER particles/crystals 10 meq PO DAILY ergocalciferol (vitamin D2) 1,250 mcg (50,000 unit) capsule 50,000 unit PO SUWE Food drops 3 drp sublingual DAILY Melaleuca Peak Sr [facility] PO BID zyflamend 1 cap PO BID montelukast 10 mg tablet 10 mg PO QPM losartan 50 mg tablet 50 mg PO BID buspirone 15 mg tablet 15 mg PO BID furosemide 40 mg tablet 20 mg PO DAILY Qty: 90 3RF levothyroxine 100 mcg tablet 50 mcg PO QODAY fluticasone propionate 50 mcg/actuation spray,suspension 1 spray INTRANASAL BID Gemtesa 75 mg tablet 75 mg PO DAILY albuterol sulfate 2.5 mg /3 mL (0.083 %) solution for nebulization 2.5 mg inhalation PRN PRN (Reason: shortness of breath or wheezing) fluorometholone 0.1 % drops,suspension 1 drp ophthalmic (eye) DAILY aspirin 81 mg tablet,delayed release (DR/EC) 81 mg PO 1700 Farxiga 10 mg tablet 10 mg PO DAILY clopidogrel [Plavix] 75 mg tablet 75 mg PO QDAY Qty: 90 3RF metoprolol tartrate 25 mg tablet 12.5 mg PO BID Qty: 180 3RF amlodipine 5 mg tablet 5 mg PO BID Qty: 180 3RF Discontinued cascara sagrada 450 mg Capsule 450 mg PO BID Referrals / Follow Up: Su Thomas DO [Primary Care Provider] - Within 2 Weeks Disposition Disposition (needs filled in before D/C Order can be placed): Home Health Service Charges/Coding Visit Charges Inpatient E&M: 40609 Disch Hosp
--- NOTE | 2023-05-19 11:03 | CASEMGMT ---
CHRIS SMALL F/U: Call received from Vitor PEREZ CM regarding pt's discharge plan. Vitor PEREZ CM spoke with pt and pt is requesting HH assistance for therapy and stated she is relying a lot on her spouse to assist her. This CHRIS SMALL noted pt's DC plan was for SNF but pt improved and was able to DC home on 05/17/23. F/U from [facility] noted pt is not active with them currently for skilled services. Will f/u with pt for preference for skilled HH provider, referral and corresponding order. Flaquita Roberson, RN AC
--- NOTE | 2023-05-19 11:16 | CASEMGMT ---
Addendum entered by Cristiano Benavides 05/19/23 12:59: [facility] returns call and state that they can accept the pt and the SOC date is tomorrow. TC to the pt at this time and pt updated with this information and is agreeable to this plan. Original Note: TC to pt at this time for HH needs. Pt states that she would want HH set up and that she has had [facility] in the past and would like to use them again. TC to [facility] and referral made for SN, PT, and OT. Awaiting return call. TC call to the pt PCP office (Dr. Thomas) and telephone order obtained for HHC.
== END 2023-05-17 13:15 | disposition home health service (06) | DRG 195 ==
LOC: ED 22:05 → PCU 23:27
PROVIDERS: Physician Assistant; Admitting Provider Internal Medicine; Emergency Provider Emergency Medicine; PCP Internal Medicine
DX: J10.08 Influenza due to other identified influenza virus with other specified pneumonia (principal); I11.0 Hypertensive heart disease with heart failure; E03.9 Hypothyroidism, unspecified; E11.40 Type 2 diabetes mellitus with diabetic neuropathy, unspecified; I50.9 Heart failure, unspecified; M06.9 Rheumatoid arthritis, unspecified; J30.9 Allergic rhinitis, unspecified; I25.10 Atherosclerotic heart disease of native coronary artery without angina pectoris; E78.00 Pure hypercholesterolemia, unspecified; E86.0 Dehydration; J15.9 Unspecified bacterial pneumonia; I25.2 Old myocardial infarction; F41.8 Other specified anxiety disorders; M79.7 Fibromyalgia; M19.09 Primary osteoarthritis, other specified site; E66.9 Obesity, unspecified; R09.02 Hypoxemia; Z95.5 Presence of coronary angioplasty implant and graft; G89.29 Other chronic pain; Z86.73 Personal history of transient ischemic attack (TIA), and cerebral infarction without residual deficits; Z79.82 Long term (current) use of aspirin; Z68.33 Body mass index [BMI] 33.0-33.9, adult; Z79.899 Other long term (current) drug therapy; Z79.51 Long term (current) use of inhaled steroids; Z79.02 Long term (current) use of antithrombotics/antiplatelets; R06.89 Other abnormalities of breathing
CPT/HCPCS: 36415; 71046; 80048; 82962; 83036; 83735; 84100; 84443; 84484; 85025; 87449; 93005; 94640; 94667; 94668; 97162; 97166; 97530; 97535; 97802; 99284; J7030; A4216

== ENCOUNTER → 2023-06-03 | Outpatient (CLI) | payer MEDICARE, MEDICAID, SELFPAY ==
--- NOTE | 2023-06-03 14:00 | ECHOD_ITS ---
Reason For Study: ISCHEMIC/DILATED CMP Procedure This was a 2D Doppler, Color Flow transthoracic echocardiogram. The study was technically difficult. PT ended exam prematurely, unable to assess with pedoff probe. Exam performed in department. Left Ventricle Normal size and thickness. The left ventricular ejection fraction is 55 %. Normal diastology for age. Right Ventricle Normal right ventricle. Atria The left and right atria are normal. Mitral Valve Moderate mitral annular calcification. Trivial mitral valve insufficiency. Tricuspid Valve Trivial tricuspid valve insufficiency. Normal pulmonary artery pressure. Aortic Valve Mild diffuse aortic valve calcification. Mild aortic stenosis. Pulmonic Valve The pulmonic valve is not well visualized. Great Vessels Normal sized aortic root. Pericardium/Pleural No pericardial effusion. MMode/2D Measurements & Calculations LVIDd: 4.7 cm IVSd: 1.1 cm LVOT diam: 2.0 cm LVIDs: 3.6 cm LVPWd: 1.1 cm LVOT area: 3.0 cm2 RVDd: 2.9 cm FS: 24.0 % Ao root diam: 3.1 cm LAV(MOD-bp): 40.5 ml LVAd ap4: 24.9 cm2 LAV(MOD-bp) Indexed: 23.0 ml/m2 LVLd ap4: 6.9 cm LAV(MOD-sp2): 38.7 ml EDV(MOD-sp4): 73.8 ml LAV(MOD-sp4): 45.1 ml EDV(sp4-el): 76.6 ml LVAs ap4: 17.4 cm2 LVLs ap4: 6.4 cm ESV(MOD-sp4): 39.8 ml ESV(sp4-el): 39.9 ml EF(MOD-sp4): 46.1 % EF(sp4-el): 47.9 % LVAd ap2: 19.9 cm2 SV(MOD-sp4): 34.0 ml SV(MOD-sp2): 26.9 ml LVLd ap2: 6.7 cm EDV(MOD-sp2): 52.2 ml EDV(sp2-el): 50.5 ml LVAs ap2: 13.3 cm2 LVLs ap2: 6.1 cm ESV(MOD-sp2): 25.2 ml ESV(sp2-el): 24.8 ml EF(MOD-sp2): 51.6 % SV(sp4-el): 36.6 ml Aortic Valve Planimetry: 1.4 cm2 LA A4 area: 15.5 cm2 LA dimension(2D): 3.7 cm TAPSE: 1.7 cm Time Measurements MV dec time: 0.17 sec Doppler Measurements & Calculations MV E max jovani: 76.2 cm/sec Lat Peak E' Jovani: 5.4 cm/sec Med Peak E' Jovani: 5.7 cm/sec MV A max jovani: 104.7 cm/sec E/E' lat: 14.1 E/E' med: 13.4 MV E/A: 0.73 MV V2 max: 119.9 cm/sec MV P1/2t max jovani: 98.5 cm/sec Ao V2 max: 273.6 cm/sec MV max P.7 mmHg MV P1/2t: 56.2 msec Ao max P.0 mmHg MV V2 mean: 72.6 cm/sec MV dec slope: 512.9 cm/sec2 Ao V2 mean: 181.6 cm/sec MV mean P.4 mmHg Ao mean P.8 mmHg MV V2 VTI: 30.3 cm MVA(P1/2t): 3.9 cm2 Ao V2 VTI: 47.3 cm MVA(VTI): 2.1 cm2 AV (velocity ratio): 0.45 PATRICE(I,D): 1.4 cm2 PATRICE(V,D): 1.4 cm2 LV V1 max: 123.4 cm/sec SV(LVOT): 64.3 ml PA V2 max: 141.6 cm/sec LV V1 max P.1 mmHg PA V2 mean: 96.7 cm/sec LV V1 mean P.7 mmHg LV V1 mean: 76.1 cm/sec LV V1 VTI: 21.1 cm TR max jovani: 268.6 cm/sec TR max P.9 mmHg ECHO/Echo Complete Interpretation Summary The left ventricular ejection fraction is 55 %. Moderate mitral annular calcification. Mild aortic stenosis. The study was technically difficult. Ordering Physician: Mikey Simmons Referring Physician: Su Thomas Performed By: Verona Ghosh RDCS, RVT
== END | disposition home or self-care (01) ==
LOC: CVS 13:59
PROVIDERS: PCP Internal Medicine; Referring Provider Internal Medicine Cardiovascular Disease; Visit Provider Internal Medicine Cardiovascular Disease
DX: I25.5 Ischemic cardiomyopathy (principal)
CPT/HCPCS: 93306

== ENCOUNTER 2023-06-07 19:37 | Emergency (ER) | payer MEDICARE, MEDICAID, SELFPAY ==
[2023-06-07 19:38] VITALS: BP 188/92; PULSE 79; RESP 16; TEMP 36.2; O2SAT 94; BMI 31.1
--- NOTE | 2023-06-07 20:33 | RAD_ITS ---
INDICATION: pain EXAMINATION/TECHNIQUE: X-RAY - LEFT XR Tibia/Fibula 2 Views COMPARISON: None. FINDINGS: 2 views of the left tib-fib. BONES: Normal anatomic alignment without evidence of fracture or subluxation. No concerning bony lesion or abnormal sclerosis to suggest lesion. JOINTS: No significant degenerative change. SOFT TISSUES: Inferior calcaneal enthesophyte. Atherosclerotic vascular calcifications RAD/Tibia & Fibula 2 Views IMPRESSION: No acute osseous abnormality of the left tib-fib. Electronically Signed: Oneil Baum MD at 22:30 EDT ,
--- NOTE | 2023-06-07 20:52 | RAD_ITS ---
INDICATION: cough EXAMINATION/TECHNIQUE: X-RAY - XR Chest 2 Views COMPARISON: 05/15/2023 chest radiograph. Findings: Frontal and lateral views of the chest. LUNG PARENCHYMA: No acute focal airspace disease or mass lesion. PLEURA: No pleural effusion. No pneumothorax. HEART/GREAT VESSELS: Cardiomediastinal silhouette is unremarkable. BONES: Osseous structures are unremarkable for age. RAD/Chest PA and Lateral IMPRESSION: Chest with no acute disease. Electronically Signed: Oneil Baum MD at 22:28 EDT ,
--- NOTE | 2023-06-07 21:12 | EDS_ITS ---
<Statement entered by Gabriela Latham MD - 06/07/23 23:10> I have personally performed a face to face assessment of the patient and have reviewed the GAB Note. Patient presents via EMS secondary to left gaspar pain. She states tonight she had rather abrupt onset of pain to the left anterior gaspar. No recent injury. She also reports chronic cough for the past month or more. She was on a course of antibiotics with no improvement. No fever or chills. Patient sitting upright in bed no acute distress. She has frequent dry cough. Head neck examination unremarkable. Heart is regular rate and rhythm. Lung sounds are clear. Abdomen is soft and nontender. Lower extreme examination reveals mild focal tenderness over the anterior left gaspar. No mass or edema. No erythema or excessive warmth. Left tib-fib x-rays from interpretation reveal no bony fracture. Radiology interpretation reviewed and agrees. 2 view chest x-ray reveals no evidence of focal infiltrate with chronic changes per my interpretation. Radiology interpretation reviewed and agrees. Patient was given Tylenol here along with a Lidoderm patch to her left gaspar. She was able to get up and ambulate with her walker and does feel that she can go home. She is given a prescription for Lidoderm patches. She has follow-up scheduled with her baffle mounter this week. HPI History of Present Illness Chief Complaint: Lower Extremity Injury Narrative Narrative: Patient presenting today with pain to her anterior left leg that she has had for the past 1.5 hours. She reports that the pain is sharp and constant, she denies any injury to her leg. She has not tried taking any medication to help with her pain. She did call 911 because her leg was hurting. She also reports that she has had a nonproductive cough over the past several weeks after being diagnosed with influenza A on 05/15/2023 and being admitted to the hospital. She denies any fevers, chills, shortness of breath, or chest pain. [facility] Medical History Allergic rhinitis Ambulates with cane Anxiety Arthritis Asthma Atherosclerotic heart disease of [place] coronary artery without angina pectoris Back pain Cardiology follow-up encounter COVID-19 Depressive disorder Diabetes Diabetic neuropathy Dyspepsia Edema Essential hypertension Fibromyalgia Hearing loss High cholesterol History of adenomatous polyp of colon History of coronary artery disease History of diabetes mellitus History of echocardiogram History of heart attack History of rheumatic fever History of steroid therapy History of tachycardia Hyperlipidemia Hypertension Hypothyroidism Insomnia Ischemic cardiomyopathy Left against medical advice (12/19/20) Non-STEMI (non-ST elevated myocardial infarction) (12/13/20) Obesity Osteoarthritis Positive colorectal cancer screening using Cologuard test Rheumatoid arthritis Tachycardia Takotsubo cardiomyopathy Thyroid disease Thyromegaly Varicosities of leg Vitamin D deficiency Walker as ambulation aid Wears dentures Wears glasses Wears hearing aid Home Medications azelastine 137 mcg (0.1 %) nasal spray aerosol 1 spray intranasal BID allergies 01/29/18 [History Last Taken 03/08/22 08:00] loratadine 10 mg tablet (Claritin) 10 mg PO DAILY allergies 01/29/18 [History Last Taken 03/07/22] levothyroxine 100 mcg tablet 50 mcg PO QODAY THYROID 12/19/20 [History Last Taken 03/08/22 07:00] levothyroxine 100 mcg tablet 100 mcg PO Q OTHER DAY 02/28/21 [History Last Taken 03/07/22 07:00] aspirin 81 mg tablet,delayed release 81 mg PO 1700 heart health 05/22/21 [History Last Taken 03/08/22 17:00] ergocalciferol (vitamin D2) 1,250 mcg (50,000 unit) capsule 50,000 unit PO SUWE vitamin 05/28/21 [History Last Taken 03/05/22] fluticasone propionate 50 mcg/actuation nasal spray,suspension 1 spray intranasal BID allergies 05/28/21 [History Last Taken 03/08/22 08:00] potassium chloride 10 mEq tablet,extended release(part/cryst) 10 meq PO DAILY supplement 05/28/21 [History Last Taken 03/08/22 08:00] dapagliflozin propanediol 10 mg tablet (Farxiga) 10 mg PO DAILY diabetes 10/08/21 [History Last Taken 03/08/22 08:00] Food drops 3 drp sublingual DAILY 12/05/21 [History Last Taken Unknown] Melaleuca Peak Sr [facility] PO BID 12/05/21 [History Last Taken Unknown] zyflamend 1 cap PO BID neuropathy 12/05/21 [History Last Taken 03/08/22 17:00] fluticasone propionate 220 mcg/actuation HFA aerosol inhaler (Flovent HFA) 1 puff inhalation BID breathing 09/29/22 [History Last Taken Unknown] losartan 50 mg tablet 50 mg PO BID blood pressure 09/29/22 [History Last Taken Unknown] montelukast 10 mg tablet 10 mg PO QPM allergies 09/29/22 [History Last Taken Unknown] clopidogrel 75 mg tablet (Plavix) 75 mg PO QDAY anti platelet #90 tabs 12/11/22 [Rx Last Taken Unknown] metoprolol tartrate 25 mg tablet 12.5 mg (1/2 x 25 mg) PO BID blood pressure #180 tabs 12/26/22 [Rx Last Taken Unknown] albuterol sulfate 2.5 mg/3 mL (0.083 %) solution for nebulization 2.5 mg inhalation PRN PRN shortness of breath or wheezing 01/08/23 [History Last Taken Unknown] fluorometholone 0.1 % eye drops,suspension 1 drp ophthalmic (eye) DAILY eye health 01/08/23 [History Last Taken Unknown] vibegron 75 mg tablet (Gemtesa) 75 mg PO DAILY bladder 01/08/23 [History Last Taken Unknown] amlodipine 5 mg tablet 5 mg PO BID dose increased to twice daily #180 tabs 04/06/23 [Rx Last Taken Unknown] buspirone 15 mg tablet 15 mg PO BID mental health 04/24/23 [History Last Taken Unknown] furosemide 40 mg tablet 20 mg (1/2 x 40 mg) PO DAILY edema #90 tabs 04/24/23 [Rx Last Taken Unknown] oseltamivir 30 mg capsule 30 mg PO BID #7 caps 05/17/23 [Rx Last Taken Unknown] pravastatin 40 mg tablet 40 mg PO QHS #90 tabs 05/26/23 [Rx Last Taken Unknown] lidocaine 5 % patch and menthol 6 % gel topical kit See Rx Instructions topical .COMPLEX #1 ea 06/07/23 [Rx Last Taken Unknown] Allergy/AdvReac Type Severity Reaction Status Date / Time aspirin Allergy Intermediate heart Verified 06/07/23 19:40 races, dizziness povidone-iodine Allergy Intermediate rash Verified 06/07/23 19:40 [From Betadine] soap [From Betadine] Allergy Intermediate rash Verified 06/07/23 19:40 amitriptyline Allergy Unknown Unknown Verified 06/07/23 19:40 doxepin Allergy Unknown unknown Verified 06/07/23 19:40 guaifenesin [From Entex LA] Allergy Unknown Unknown Verified 06/07/23 19:40 latex Allergy Unknown Rash Verified 06/07/23 19:40 phenylephrine [From Entex LA] Allergy Unknown Unknown Verified 06/07/23 19:40 phenylpropanolamine Allergy Unknown Unknown Verified 06/07/23 19:40 [From Entex LA] pseudoephedrine Allergy Unknown heart races Verified 06/07/23 19:40 Sulfa (Sulfonamide Allergy Unknown Unknown Verified 06/07/23 19:40 Antibiotics) Family History Father Asthma Diabetes High cholesterol Heart disease Hypertension Mother Arthritis Diabetes Heart disease Hypertension Sister Arthritis Lupus Brother Arthritis Surgical History History of cardiac catheterization History of colonoscopy (05/27/21) History of coronary artery stent placement (10/14/21) History of coronary artery stent placement History of hysterectomy History of repair of rectocele Social History household members: spouse Smoking Status: Never smoker alcohol intake: never substance use type: does not use caffeine: Yes Type: tea Number of servings: 2 ROS ROS ED Constitutional Constitutional ED: Denies chills or fever(s) Cardiovascular Cardiovascular: Denies chest pain Respiratory/Chest Respiratory/Chest: Reports cough; Denies dyspnea or dyspnea on exertion Gastrointestinal Gastrointestinal: Denies abdominal pain, nausea or vomiting Musculoskeletal Musculoskeletal: Reports myalgias Integumentary Denies rash Neurologic Neurologic: Denies weakness EXAM Physical Exam Const Vital Signs: 06/07/23 19:38 06/07/23 21:42 Temperature 97.1 F L Temperature Source Temporal Pulse Rate 79 75 Respiratory Rate 16 16 Blood Pressure 188/92 H 146/79 H Blood Pressure Mean 124 101 Pulse Ox 94 94 Oxygen Delivery Method Room Air Room Air Positive well nourished, well developed and no apparent distress General Appearance ED: well developed HEENT Reports normocephalic and head/scalp atraumatic Mouth ED: Yes moist mucous membranes normal Eyes PERRL and EOMs intact bilaterally Neck full ROM and supple Chest Wall inspection of chest normal Resp normal respiratory effort and clear to auscultation bilaterally Cardio regular rate and regular rhythm GI soft to palpation, non-tender, non-distended and no masses Back/Spine normal ROM and normal to inspection Extremity normal to inspection and full ROM Extremity Narrative: Minimal tenderness to palpation along the mid aspect of the tibialis anterior muscle. Negative Homans' sign, no peripheral edema. Left DP pulse 2+, good capillary refill, sensation intact. Neuro oriented x3, CN's II-XII intact bilaterally, moves all extremities, no focal motor deficits and no sensory deficits noted Sensorium / Orientation: awake and alert Psych mental status grossly normal and thought process normal Skin no rashes or lesions noted and no wounds MDM MDM MDM Narrative Medical decision making narrative: Patient presenting with pain to her left leg that started randomly this evening. No injury to her leg. She is tender to the mid left tibialis muscle. She also reports that she has had a cough for several weeks after being diagnosed with flu a on 05/15/2023. She was hospitalized at that time and was treated for pneumonia. Chest x-ray will be obtained today to rule out pneumonia, left tibia/fibula x-ray will be obtained. She will be given Tylenol and a lidocaine patch for pain. Patient ambulated and did well. Pending x-ray interpretation. Discharge Plan Triage Chief Complaint: Lower Extremity Injury ED Midlevel Provider: Sarah Coffman ED Provider: Gabriela Latham Dx/Rx/DC Orders Clinical Impression: Cough, Left leg pain Instructions: ED Myalgias Prescriptions: New lidocaine-menthol 5-6 % kit See Rx Instructions .ROUTE .COMPLEX Qty: 1 0RF Rx Instructions: apply LIDIOCAINE PATCH once a day/may leave on for up to 12 hrs; apply MENTHOL GEL 1 - 4 times/day as needed for pain. No Action azelastine 137 mcg (0.1 %) aerosol,spray 1 spray INTRANASAL BID loratadine [Claritin] 10 mg tablet 10 mg PO DAILY levothyroxine 100 mcg tablet 100 mcg PO Q OTHER DAY Rx Instructions: Alternate 50 mcg with 100 mcg. fluticasone propionate [Flovent HFA] 220 mcg/actuation HFA aerosol inhaler 1 puff inhalation BID potassium chloride 10 mEq tablet,ER particles/crystals 10 meq PO DAILY ergocalciferol (vitamin D2) 1,250 mcg (50,000 unit) capsule 50,000 unit PO SUWE Food drops 3 drp sublingual DAILY Melaleuca Peak Sr [facility] PO BID zyflamend 1 cap PO BID montelukast 10 mg tablet 10 mg PO QPM losartan 50 mg tablet 50 mg PO BID buspirone 15 mg tablet 15 mg PO BID furosemide 40 mg tablet 20 mg PO DAILY Qty: 90 3RF levothyroxine 100 mcg tablet 50 mcg PO QODAY fluticasone propionate 50 mcg/actuation spray,suspension 1 spray INTRANASAL BID Gemtesa 75 mg tablet 75 mg PO DAILY albuterol sulfate 2.5 mg /3 mL (0.083 %) solution for nebulization 2.5 mg inhalation PRN PRN (Reason: shortness of breath or wheezing) fluorometholone 0.1 % drops,suspension 1 drp ophthalmic (eye) DAILY aspirin 81 mg tablet,delayed release (DR/EC) 81 mg PO 1700 oseltamivir 30 mg Capsule 30 mg PO BID Qty: 7 0RF dapagliflozin propanediol [Farxiga] 10 mg tablet 10 mg PO DAILY clopidogrel [Plavix] 75 mg tablet 75 mg PO QDAY Qty: 90 3RF metoprolol tartrate 25 mg tablet 12.5 mg PO BID Qty: 180 3RF amlodipine 5 mg tablet 5 mg PO BID Qty: 180 3RF pravastatin 40 mg tablet 40 mg PO QHS Qty: 90 3RF Primary Care Provider: Su Thomas Referrals: Su Thomas DO [Primary Care Provider] - 3-5 Days Activity Restrictions/Additional Instructions: You can take Tylenol for your pain as needed. Follow-up with your PCP and return for any worsening of your symptoms. Disposition Disposition: Home, Self Care
[2023-06-07] MEDS: Lidocaine 5% Patch 1 PATCH TOPICAL (21:24)
[2023-06-07] MEDS: Acetaminophen 325 MG Tablet 650 MG PO (21:25)
[2023-06-07 21:42] VITALS: BP 146/79; PULSE 75; RESP 16; O2SAT 94
[2023-06-07 22:33] VITALS: BP 141/76; PULSE 78; RESP 17; O2SAT 95
[2023-06-07 22:44] VITALS: BP 141/76; PULSE 78; RESP 17; TEMP 36.2; O2SAT 95
== END 2023-06-07 22:44 | disposition home or self-care (01) ==
PROVIDERS: Emergency Provider Emergency Medicine; PCP Internal Medicine; Visit Provider Emergency Medicine
DX: M79.605 Pain in left leg (principal); E11.9 Type 2 diabetes mellitus without complications; R05.9 Cough, unspecified; I25.10 Atherosclerotic heart disease of native coronary artery without angina pectoris; I10 Essential (primary) hypertension; E78.00 Pure hypercholesterolemia, unspecified; I25.2 Old myocardial infarction; E03.9 Hypothyroidism, unspecified; Z79.899 Other long term (current) drug therapy; Z79.82 Long term (current) use of aspirin; J45.909 Unspecified asthma, uncomplicated; Z79.51 Long term (current) use of inhaled steroids; Z79.02 Long term (current) use of antithrombotics/antiplatelets; F41.9 Anxiety disorder, unspecified; R60.9 Edema, unspecified; Z95.5 Presence of coronary angioplasty implant and graft; Z90.710 Acquired absence of both cervix and uterus
CPT/HCPCS: 71046; 73590; 99282

== ENCOUNTER → 2023-06-11 | Outpatient (CLI) | payer MEDICARE, MEDICAID, SELFPAY | END | disposition home or self-care (01) | LOC: PSN 10:28 | PROVIDERS: PCP Internal Medicine; Referring Provider Internal Medicine Cardiovascular Disease; Visit Provider Internal Medicine Cardiovascular Disease | DX: Z91.89 Other specified personal risk factors, not elsewhere classified (principal); Z79.899 Other long term (current) drug therapy | CPT/HCPCS: 93225; 93226 ==

== ENCOUNTER 2023-11-30 10:40 | Emergency (ER) | payer MEDICARE, MEDICAID, SELFPAY ==
[2023-11-30 10:42] VITALS: BP 142/88; PULSE 84; RESP 16; TEMP 36.3; O2SAT 94; BMI 32.6
--- NOTE | 2023-11-30 10:56 | CT_ITS ---
EXAM: CT CHEST WITHOUT INTRAVENOUS CONTRAST CLINICAL INDICATION: R rib pain after fall TECHNIQUE: Helically acquired images were obtained of the chest without intravenous contrast. This CT exam was performed using one or more of the following dose reduction techniques: automated exposure control, adjustment of the mA and/or kV according to patient size, and/or use of iterative reconstruction technique. COMPARISON: No relevant prior studies available. FINDINGS: LUNGS AND PLEURAL SPACES: Minimal left basilar greater than right basilar airspace disease is likely atelectasis or perhaps pneumonia. No mass. No pleural effusion or thickening. HEART: Trace pericardial effusion mild cardiomegaly. Coronary artery stent and/or calcifications. MEDIASTINUM: Mildly enlarged mediastinal lymph nodes. Esophagus is unremarkable. No hiatal hernia. THYROID: No significant abnormality. No thyroid lesions. BONES/JOINTS: T12 vertebral body hemangioma. Degenerative changes of the visualized axial and appendicular skeletal structures. No suspicious lytic or blastic abnormality. No distinct evidence of a rib fracture. VASCULATURE: Atherosclerosis of the aorta and its branch vessels. Thoracic aorta is non-dilated. OTHER FINDINGS: Small left posterior diaphragmatic hernia. CT/Chest without Contrast IMPRESSION: 1. No distinct evidence of a rib fracture. 2. Trace pericardial effusion mild cardiomegaly. Coronary artery stent and/or calcifications. 3. Minimal left basilar greater than right basilar airspace disease is likely atelectasis or perhaps pneumonia. Electronically Signed: [place] Xiong DO at 11:41 EDT ,
--- NOTE | 2023-11-30 10:56 | CT_ITS ---
EXAM: CT HEAD AND CERVICAL SPINE WITHOUT INTRAVENOUS CONTRAST CLINICAL INDICATION: fall hit head TECHNIQUE: Helically acquired images were obtained of the head/brain and cervical spine without intravenous contrast. 2D reformatted images were reviewed. This CT exam was performed using one or more of the following dose reduction techniques: automated exposure control, adjustment of the mA and/or kV according to patient size, and/or use of iterative reconstruction technique. COMPARISON: CT head, 05/15/2022. FINDINGS: BRAIN AND EXTRA-AXIAL SPACES: There is non-specific periventricular hypoattenuation which is most commonly related to chronic microvascular ischemic disease in a patient of this age. There is no mass, mass-effect, or shift of the midline structures. No evidence of acute infarct or acute intracranial hemorrhage. There is no evidence of pathologic extra-axial fluid. There is no hydrocephalus. Patent basal cisterns. Posterior fossa structures are unremarkable. SKULL: No significant abnormality. No discrete lytic or blastic abnormalities. SINUSES: No significant findings. MASTOID AIR CELLS: No significant abnormality. Clear. VERTEBRAE: Multilevel facet, uncovertebral joint, and endplate osteophytosis. No fracture. No traumatic subluxation. No discrete lytic or blastic abnormality. Normal alignment. Aside from degenerative changes, normal craniocervical junction and cervicothoracic junction. DISCS/SPINAL CANAL/NEURAL FORAMINA: Mild to moderate multilevel spinal canal stenosis. Multilevel intervertebral disc height loss. Mild to moderate multilevel neural foraminal narrowing. Multiple disc bulges and/or herniations are present. SOFT TISSUES: No significant abnormality. No prevertebral soft tissue swelling. VASCULATURE: Arteriosclerosis. Vascular calcifications in the neck. LYMPH NODES: No significant abnormality. No cervical adenopathy. LUNG APICES: Normal as visualized. No acute findings in the lung apices. CT/Spine Cervical without Contras IMPRESSION: Chronic microvascular ischemic changes. No CT evidence of acute intracranial pathology. No CT evidence of acute cervical spine injury. Multilevel degenerative changes. Electronically Signed: [place] Xiong DO at 11:48 EDT ,
--- NOTE | 2023-11-30 10:56 | CT_ITS ---
EXAM: CT HEAD AND CERVICAL SPINE WITHOUT INTRAVENOUS CONTRAST CLINICAL INDICATION: fall hit head TECHNIQUE: Helically acquired images were obtained of the head/brain and cervical spine without intravenous contrast. 2D reformatted images were reviewed. This CT exam was performed using one or more of the following dose reduction techniques: automated exposure control, adjustment of the mA and/or kV according to patient size, and/or use of iterative reconstruction technique. COMPARISON: CT head, 05/15/2022. FINDINGS: BRAIN AND EXTRA-AXIAL SPACES: There is non-specific periventricular hypoattenuation which is most commonly related to chronic microvascular ischemic disease in a patient of this age. There is no mass, mass-effect, or shift of the midline structures. No evidence of acute infarct or acute intracranial hemorrhage. There is no evidence of pathologic extra-axial fluid. There is no hydrocephalus. Patent basal cisterns. Posterior fossa structures are unremarkable. SKULL: No significant abnormality. No discrete lytic or blastic abnormalities. SINUSES: No significant findings. MASTOID AIR CELLS: No significant abnormality. Clear. VERTEBRAE: Multilevel facet, uncovertebral joint, and endplate osteophytosis. No fracture. No traumatic subluxation. No discrete lytic or blastic abnormality. Normal alignment. Aside from degenerative changes, normal craniocervical junction and cervicothoracic junction. DISCS/SPINAL CANAL/NEURAL FORAMINA: Mild to moderate multilevel spinal canal stenosis. Multilevel intervertebral disc height loss. Mild to moderate multilevel neural foraminal narrowing. Multiple disc bulges and/or herniations are present. SOFT TISSUES: No significant abnormality. No prevertebral soft tissue swelling. VASCULATURE: Arteriosclerosis. Vascular calcifications in the neck. LYMPH NODES: No significant abnormality. No cervical adenopathy. LUNG APICES: Normal as visualized. No acute findings in the lung apices. CT/Brain/Head without Contrast IMPRESSION: Chronic microvascular ischemic changes. No CT evidence of acute intracranial pathology. No CT evidence of acute cervical spine injury. Multilevel degenerative changes. Electronically Signed: [place] Xiong DO at 11:35 EDT ,
--- NOTE | 2023-11-30 10:57 | EX.ED.DYSGE1 ---
HPI History of Present Illness Chief Complaint: Fall Narrative Narrative: Patient is a 78-year-old female with a past medical history of diabetes, CAD status post stents, anxiety, hypertension, frequent falls, hypothyroidism who presented to the emergency department chief complaint of fall. Patient states that she went to sit down and noted that her did not lock the chair on both sides causing her to miss the chair when she sat down. She states that she fell and hit her head as well as her right ribs. She states that she does have a headache with some rib pain. States that she did not pass out did not lose consciousness remembers the entire event. Patient states that she has really bad arthritis on her right side of her body and states that when she falls she cannot get up and therefore EMS brought her here for further evaluation management [facility] Medical History Edema Takotsubo cardiomyopathy History of diabetes mellitus History of coronary artery disease History of adenomatous polyp of colon Wears dentures Wears hearing aid Wears glasses Anxiety History of steroid therapy Thyroid disease Walker as ambulation aid Ambulates with cane Arthritis High cholesterol Back pain Asthma History of echocardiogram Hypertension Cardiology follow-up encounter History of rheumatic fever History of heart attack Positive colorectal cancer screening using Cologuard test COVID-19 Ischemic cardiomyopathy Obesity Atherosclerotic heart disease of [place] coronary artery without angina pectoris Non-STEMI (non-ST elevated myocardial infarction) (12/13/20) Tachycardia Hyperlipidemia Essential hypertension Left against medical advice (12/19/20) History of tachycardia Rheumatoid arthritis Hypothyroidism Thyromegaly Diabetic neuropathy Diabetes Vitamin D deficiency Depressive disorder Insomnia Hearing loss Varicosities of leg Allergic rhinitis Dyspepsia Osteoarthritis Fibromyalgia Home Medications ?Medication ?Instructions ?Recorded ?Last Taken ?Type azelastine 137 mcg (0.1 %) nasal 1 spray intranasal BID allergies 01/29/18 03/08/22 08:00 History spray loratadine 10 mg tablet (Claritin) 10 mg PO DAILY allergies 01/29/18 03/07/22 History levothyroxine 100 mcg tablet 50 mcg PO QODAY THYROID 12/19/20 03/08/22 07:00 History levothyroxine 100 mcg tablet 100 mcg PO Q OTHER DAY 02/28/21 03/07/22 07:00 History aspirin 81 mg tablet,delayed 81 mg PO 1700 [facility] 05/22/21 03/08/22 17:00 History release fluticasone propionate 50 1 spray intranasal BID allergies 05/28/21 03/08/22 08:00 History mcg/actuation nasal spray,suspension potassium chloride 10 mEq 10 meq PO DAILY supplement 05/28/21 03/08/22 08:00 History tablet,extended release(part/cryst) dapagliflozin propanediol 10 mg 10 mg PO DAILY diabetes 10/08/21 03/08/22 08:00 History tablet (Farxiga) zyflamend 1 cap PO BID neuropathy 12/05/21 03/08/22 17:00 History montelukast 10 mg tablet 10 mg PO QPM allergies 09/29/22 Unknown History albuterol sulfate 2.5 mg/3 mL 2.5 mg inhalation PRN PRN 01/08/23 Unknown History (0.083 %) solution for nebulization shortness of breath or wheezing fluorometholone 0.1 % eye 1 drp ophthalmic (eye) DAILY eye 01/08/23 Unknown History drops,suspension health vibegron 75 mg tablet (Gemtesa) 75 mg PO DAILY bladder 01/08/23 Unknown History amlodipine 5 mg tablet 5 mg PO BID dose increased to 04/06/23 Unknown Rx twice daily #180 tabs buspirone 15 mg tablet 15 mg PO BID mental health 04/24/23 Unknown History albuterol sulfate 90 mcg/actuation inhalation 07/27/23 Unknown History aerosol inhaler budesonide 0.5 mg/2 mL suspension mg inhalation BID 07/27/23 Unknown History for nebulization cholecalciferol (vitamin D3) 62.5 mcg PO 07/27/23 Unknown History mcg (2,500 unit) capsule fluticasone furoate 200 1 inh inhalation QDAY 07/27/23 Unknown History mcg/actuation blister powder for inhalation (Arnuity Ellipta) lifitegrast 5 % eye drops in a 1 drp ophthalmic (eye) BID 07/27/23 Unknown History dropperette (Xiidra) losartan 100 mg tablet See Rx Instructions PO BID 07/27/23 Unknown History metoprolol tartrate 25 mg tablet 12.5 mg (1/2 x 25 mg) PO BID blood 10/07/23 Unknown Rx pressure #90 tabs furosemide 20 mg tablet 20 mg PO DAILY 11/21/23 Unknown History gabapentin 100 mg capsule 100 mg PO BID 11/21/23 Unknown History pitavastatin magnesium 2 mg tablet 2 mg PO QPM 11/21/23 Unknown History (Christianoyppaulmag) Allergy/AdvReac Type Severity Reaction Status Date / Time azithromycin Allergy Severe Other Verified 11/30/23 10:41 aspirin Allergy Intermediate heart Verified 11/30/23 10:41 races, dizziness povidone-iodine (From Allergy Intermediate rash Verified 11/30/23 10:41 Betadine) soap (From Betadine) Allergy Intermediate rash Verified 11/30/23 10:41 amitriptyline Allergy Unknown Unknown Verified 11/30/23 10:41 doxepin Allergy Unknown unknown Verified 11/30/23 10:41 guaifenesin (From Entex LA) Allergy Unknown Unknown Verified 11/30/23 10:41 latex Allergy Unknown Rash Verified 11/30/23 10:41 phenylephrine (From Entex LA) Allergy Unknown Unknown Verified 11/30/23 10:41 phenylpropanolamine (From Allergy Unknown Unknown Verified 11/30/23 10:41 Entex LA) pseudoephedrine Allergy Unknown heart races Verified 11/30/23 10:41 Sulfa (Sulfonamide Allergy Unknown Unknown Verified 11/30/23 10:41 Antibiotics) Family History Father Asthma Diabetes High cholesterol Heart disease Hypertension Mother Arthritis Diabetes Heart disease Hypertension Sister Arthritis Lupus Brother Arthritis Surgical History History of colonoscopy (05/27/21) History of cardiac catheterization History of coronary artery stent placement History of coronary artery stent placement (10/14/21) History of hysterectomy History of repair of rectocele Social History household members: spouse Smoking Status: Never smoker alcohol intake: never substance use type: does not use caffeine: Yes Type: tea Number of servings: 2 ROS ROS ED ROS Narrative Constitutional: complains of headache as noted above Eyes: Denies change in vision double vision blurry vision Cardiovascular: Denies chest pain or palpitations Respiratory: Denies coughing wheezing shortness of breath Abdomen: Denies abdominal pain nausea vomiting diarrhea : Denies any urinary symptoms Neurological: Denies any numbness, weakness, tingling Musculoskeletal: Complains of right rib pain Skin: Denies any rashes or lesions EXAM Physical Exam Narrative Exam Narrative: General: Patient lying in bed rest comfortably did not appear to be in acute distress Head: Atraumatic, normocephalic Eyes: PERRL bilateral, EOMI bilateral, no conjunctival injection noted Neck: Soft, supple, trachea midline Cardiovascular: Regular rate and rhythm no murmurs gallops rubs noted Respiratory: Clear to auscultation bilaterally no rales rhonchi wheeze noted Abdomen: Soft, nondistended, no tenderness to palpation, bowel sounds present x 4 Musculoskeletal: Patient's has no midline tenderness to palpation in the cervical, thoracolumbar region. Patient has some tenderness palpation of the right posterior rib cage. All other joints taken through full range of motion outside of her right arm as she has chronic arthritis in that shoulder and states that this is not any worsening pain otherwise no pain elicited with movement. All other bony prominences palpated no pain elicited Extremities: Patient moving all extremities on exam, no pedal edema on exam Neurological: Patient following commands knew that she was at [facility] year is 2023 Skin: Warm, dry, intact Const Vital Signs: 11/30/23 10:42 11/30/23 10:47 11/30/23 12:41 Temperature 97.3 F L Temperature Source Temporal Pulse Rate 84 73 Respiratory Rate 16 18 Respiratory Effort Normal Non-Labored Respiratory Depth Normal Respiratory Pattern Normal Blood Pressure 142/88 H 116/72 Blood Pressure Mean 106 86 Pulse Ox 94 97 Oxygen Delivery Method Room Air Room Air Room Air MDM MDM MDM Narrative Medical decision making narrative: Patient is a 78-year-old female who presented to the emergency department chief complaint of mechanical fall when attempting to sit down in a chair that was not locked causing her to fall. Patient will have a workup performed here on the differential diagnose includes but not limited to intracranial hemorrhage, cervical spine fracture, rib fractures. Once again she states that she did not have any lightheadedness, dizziness, shortness of breath, chest pain prior to the fall she simply attempted to sit down and missed the chair causing her to fall. Patient's x-ray of her pelvis was reviewed showed degenerative changes lumbar spine symmetrically SI joints no acute fracture or dislocation. Patient CT chest showed no evidence of rib fractures, trace pericardial effusion mild cardiomegaly coronary artery stent and/or calcification noted. Minimal left basilar greater than right basilar airspace disease is likely atelectasis or perhaps pneumonia she is not have any respiratory symptoms or cough. Therefore do not believe this is pneumonia. Patient CT cervical spine as well as her CT head and brain without contrast showed no acute intracranial hemorrhage and no acute cervical spine injury with multilevel degenerative changes noted. Did discuss results with the patient and at bedside she would like to go home at this point time. She is encouraged to use Tylenol and ibuprofen for pain control. She was advised to follow-up with her primary care physician outpatient setting. She was encouraged to return with worsening symptoms or other concerns. Radiography Diagnostic Testing: Clinical Impression(s) from Imaging Studies Brain CT 11/30/23 10:56 IMPRESSION: Chronic microvascular ischemic changes. No CT evidence of acute intracranial pathology. No CT evidence of acute cervical spine injury. Multilevel degenerative changes. Electronically Signed: [place] Xiong DO at 11:35 EDT , Cervical Spine CT 11/30/23 10:56 IMPRESSION: Chronic microvascular ischemic changes. No CT evidence of acute intracranial pathology. No CT evidence of acute cervical spine injury. Multilevel degenerative changes. Electronically Signed: [place] Xiong DO at 11:48 EDT , Chest CT 11/30/23 10:56 IMPRESSION: 1. No distinct evidence of a rib fracture. 2. Trace pericardial effusion mild cardiomegaly. Coronary artery stent and/or calcifications. 3. Minimal left basilar greater than right basilar airspace disease is likely atelectasis or perhaps pneumonia. Electronically Signed: [place] Xiong DO at 11:41 EDT , Pelvis X-Ray 11/30/23 11:25 IMPRESSION: Degenerative changes in the lumbar spine, symmetrically at the SI joints, and symmetrically at the bilateral hip joints. No acute osseous findings. Electronically Signed: Cuba HenleylaiDO bill at 11:48 EDT , Discharge Plan Triage Chief Complaint: Fall Other Complaint: Head Injury ED Provider: Jose Antonio Crump Dx/Rx/DC Orders Clinical Impression: Accident due to mechanical fall without injury Prescriptions: No Action azelastine 137 mcg (0.1 %) aerosol,spray 1 spray INTRANASAL BID loratadine [Claritin] 10 mg tablet 10 mg PO DAILY levothyroxine 100 mcg tablet 100 mcg PO Q OTHER DAY Rx Instructions: Alternate 50 mcg with 100 mcg. potassium chloride 10 mEq tablet,ER particles/crystals 10 meq PO DAILY zyflamend 1 cap PO BID montelukast 10 mg tablet 10 mg PO QPM buspirone 15 mg tablet 15 mg PO BID budesonide 0.5 mg/2 mL suspension for nebulization inhalation BID albuterol sulfate 90 mcg/actuation HFA aerosol inhaler inhalation Arnuity Ellipta 200 mcg/actuation blister with device 1 inh inhalation QDAY Xiidra 5 % dropperette 1 drp ophthalmic (eye) BID Rx Instructions: administer approximately 12 hours apart cholecalciferol (vitamin D3) 62.5 mcg (2,500 unit) capsule PO levothyroxine 100 mcg tablet 50 mcg PO QODAY fluticasone propionate 50 mcg/actuation spray,suspension 1 spray INTRANASAL BID Gemtesa 75 mg tablet 75 mg PO DAILY albuterol sulfate 2.5 mg /3 mL (0.083 %) solution for nebulization 2.5 mg inhalation PRN PRN (Reason: shortness of breath or wheezing) fluorometholone 0.1 % drops,suspension 1 drp ophthalmic (eye) DAILY furosemide 20 mg tablet 20 mg PO DAILY Zypitamag 2 mg tablet 2 mg PO QPM gabapentin 100 mg capsule 100 mg PO BID aspirin 81 mg tablet,delayed release (DR/EC) 81 mg PO 1700 dapagliflozin propanediol [Farxiga] 10 mg tablet 10 mg PO DAILY amlodipine 5 mg tablet 5 mg PO BID Qty: 180 3RF losartan 100 mg tablet See Rx Instructions PO BID Rx Instructions: 100 mg QAM, 50 mg QPM orally twice a day; metoprolol tartrate 25 mg tablet 12.5 mg PO BID Qty: 90 3RF Primary Care Provider: Su Thomas Referrals: Su Thomas DO [Primary Care Provider] - Activity Restrictions/Additional Instructions: Follow-up with your primary care physician outpatient setting. Return with worsening symptoms or other concerns. Use ibuprofen and Tylenol for pain control. Print Language: Turkish Disposition Disposition: Home, Self Care
--- NOTE | 2023-11-30 11:25 | RAD_ITS ---
EXAM: XR PELVIS, 1 OR 2 VIEWS CLINICAL INDICATION: fall pain. TECHNIQUE: Frontal view of the pelvis. COMPARISON: 07/23/2022 FINDINGS: BONES/JOINTS: Degenerative changes in the lumbar spine, symmetrically at the SI joints, and symmetrically at the bilateral hip joints. No displaced fracture. No destructive or sclerotic lesions. Note that overlapping bowel shadows may however obscure fine detail. No widening of the pubic symphysis. SOFT TISSUES: No significant abnormality. No soft tissue swelling or gas. RAD/Pelvis 1 or 2 Views IMPRESSION: Degenerative changes in the lumbar spine, symmetrically at the SI joints, and symmetrically at the bilateral hip joints. No acute osseous findings. Electronically Signed: [place] Xiong DO at 11:48 EDT ,
[2023-11-30] MEDS: Acetaminophen 500 MG Tablet 1000 MG PO (11:27)
[2023-11-30 12:41] VITALS: BP 116/72; PULSE 73; RESP 18; O2SAT 97
[2023-11-30 13:15] VITALS: BP 119/72; PULSE 73; RESP 18; TEMP 36.8; O2SAT 94
== END 2023-11-30 13:20 | disposition home or self-care (01) ==
PROVIDERS: Emergency Provider Emergency Medicine; PCP Internal Medicine; Visit Provider Emergency Medicine
DX: R07.81 Pleurodynia (principal); E11.9 Type 2 diabetes mellitus without complications; I25.10 Atherosclerotic heart disease of native coronary artery without angina pectoris; I10 Essential (primary) hypertension; F41.9 Anxiety disorder, unspecified; E78.00 Pure hypercholesterolemia, unspecified; I25.5 Ischemic cardiomyopathy; W18.39XA Other fall on same level, initial encounter; I25.2 Old myocardial infarction; E03.9 Hypothyroidism, unspecified; Z79.899 Other long term (current) drug therapy; J45.909 Unspecified asthma, uncomplicated; Z79.51 Long term (current) use of inhaled steroids; Z95.5 Presence of coronary angioplasty implant and graft; Z90.710 Acquired absence of both cervix and uterus; R51.9 Headache, unspecified
CPT/HCPCS: 70450; 71250; 72125; 72170; 99282

== ENCOUNTER → 2023-12-17 05:00 | Outpatient (REF) | payer MEDICARE, MEDICAID, SELFPAY ==
[2023-12-17 09:25] LABS: Absolute Lymphocyte Count 2.77 X10^3/uL (0.83-4.51); Absolute Neutrophil Count 4.9 X10^3/uL (2.0-7.7); Basophil# 0.08 X10^3/uL; Basophil% 0.9 % (0-1); Eosinophil# 0.43 X10^3/uL; Eosinophils% 4.7 % (0-5); Hematocrit 41.3 % (37-47); Hemoglobin 13.3 g/dL (12.0-15.0); Lymphocyte # 2.77 X10^3/ul (0.83-4.51); Lymphocyte % 30.4 % (19-41); Mean Corp Hgb Conc 32.2 g/dL (32-36); Mean Corpuscular Hgb 30.5 pg (27.0-32.0); Mean Corpuscular Volume 94.7 fL (81-99); Mean Platelet Vol. 9.3 fl (6.2-12.0); Monocyte# 0.95 X10^3/uL; Monocyte% 10.4 % (0-10); NRBC Flagged by Analyzer 0 % (0-5); Neutrophil # 4.85 X10^3/uL (2.7-7.7); Neutrophil % 53.4 % (47-70); Platelet Count 327 K/mm3 (150-450); RBC Distribution Width CV 13.8 % (11.6-14.6); RBC Distribution Width SD 48.4 fl (35.1-43.9); Red Blood Count 4.36 M/mm3 (4.2-5.4); White Blood Count 9.1 K/mm3 (4.4-11.0)
[2023-12-17 09:36] LABS: Vitamin D,25 Hydroxy 141.3 ng/mL
[2023-12-17 09:47] LABS: ALB/GLOB Ratio 0.8 RATIO (0.9-2.4); AST(SGOT) 19 U/L (15-37); Alanine Aminotransfer ALT/SGPT 23 U/L (13-56); Albumin, Serum 2.9 g/dL (3.2-5.0); Alkaline Phosphatase 64 U/L (45-117); Anion Gap 8 (5-15); BUN 27 mg/dL (7-18); BUN/Creat Ratio 23.9 RATIO (10-20); Calcium,Total 9.2 mg/dL (8.5-10.1); Chloride 107 mmol/L (98-107); Cholesterol 175 mg/dL (200); Creatinine, Serum 1.13 mg/dL (0.55-1.02); EST Glomerular Filtration Rate 49 mL/min (>60); Est Glom Filt Rate - Afr Amer 60 mL/min (>60); Globulin 3.6 g/dL (2.2-4.2); Glucose 125 mg/dL (74-106); High Density Lipoprotein 49 mg/dL; Potassium 3.9 mmol/L (3.5-5.1); Protein, Total 6.5 g/dL (6.4-8.2); Sodium Level 140 mmol/L (136-145); Triglycerides 180 mg/dL; Very Low Density Lipoprotein 36 mg/dL (5-40)
[2023-12-17 10:52] LABS: Hemoglobin A1c 6.9 % (3.8-5.6)
== END ==
LOC: OLS.WHLEAS 05:00
PROVIDERS: PCP Internal Medicine; Visit Provider Internal Medicine
DX: E11.40 Type 2 diabetes mellitus with diabetic neuropathy, unspecified (principal); J44.9 Chronic obstructive pulmonary disease, unspecified; I10 Essential (primary) hypertension; R00.0 Tachycardia, unspecified; E78.00 Pure hypercholesterolemia, unspecified
CPT/HCPCS: 36415; 80053; 80061; 82306; 83036; 84443; 85025

== ENCOUNTER → 2023-12-31 05:00 | Outpatient (REF) | payer MEDICARE, MEDICAID, SELFPAY ==
[2023-12-31 08:46] LABS: Absolute Lymphocyte Count 2.73 X10^3/uL (0.83-4.51); Absolute Neutrophil Count 5.7 X10^3/uL (2.0-7.7); Basophil# 0.07 X10^3/uL; Basophil% 0.7 % (0-1); Eosinophil# 0.33 X10^3/uL; Eosinophils% 3.4 % (0-5); Hematocrit 42.5 % (37-47); Hemoglobin 13.7 g/dL (12.0-15.0); Lymphocyte # 2.73 X10^3/ul (0.83-4.51); Lymphocyte % 28.2 % (19-41); Mean Corp Hgb Conc 32.2 g/dL (32-36); Mean Corpuscular Hgb 30.3 pg (27.0-32.0); Mean Platelet Vol. 9.4 fl (6.2-12.0); Monocyte# 0.85 X10^3/uL; Monocyte% 8.8 % (0-10); NRBC Flagged by Analyzer 0 % (0-5); Neutrophil # 5.67 X10^3/uL (2.7-7.7); Neutrophil % 58.7 % (47-70); Platelet Count 293 K/mm3 (150-450); RBC Distribution Width CV 13.6 % (11.6-14.6); RBC Distribution Width SD 47.3 fl (35.1-43.9); Red Blood Count 4.52 M/mm3 (4.2-5.4); White Blood Count 9.7 K/mm3 (4.4-11.0)
[2023-12-31 10:54] LABS: Anion Gap 7 (5-15); BUN 26 mg/dL (7-18); Calcium,Total 9.3 mg/dL (8.5-10.1); Chloride 111 mmol/L (98-107); Creatinine, Serum 1.18 mg/dL (0.55-1.02); EST Glomerular Filtration Rate 47 mL/min (>60); Est Glom Filt Rate - Afr Amer 57 mL/min (>60); Glucose 149 mg/dL (74-106); Potassium 3.7 mmol/L (3.5-5.1); Sodium Level 141 mmol/L (136-145)
== END ==
LOC: OLS.WHLEAS 05:00
PROVIDERS: PCP Internal Medicine; Visit Provider Internal Medicine
DX: E11.40 Type 2 diabetes mellitus with diabetic neuropathy, unspecified (principal)
CPT/HCPCS: 36415; 80048; 85025

== ENCOUNTER → 2024-01-15 | Outpatient (REF) | payer MEDICARE, MEDICAID, SELFPAY ==
[2024-01-15 07:47] LABS: Absolute Lymphocyte Count 2.56 X10^3/uL (0.83-4.51); Absolute Neutrophil Count 3.7 X10^3/uL (2.0-7.7); Basophil# 0.05 X10^3/uL; Basophil% 0.7 % (0-1); Eosinophil# 0.38 X10^3/uL; Eosinophils% 5.1 % (0-5); Hematocrit 41.3 % (37-47); Hemoglobin 13.5 g/dL (12.0-15.0); Lymphocyte # 2.56 X10^3/ul (0.83-4.51); Lymphocyte % 34.1 % (19-41); Mean Corp Hgb Conc 32.7 g/dL (32-36); Mean Corpuscular Hgb 30.8 pg (27.0-32.0); Mean Corpuscular Volume 94.3 fL (81-99); Mean Platelet Vol. 9.2 fl (6.2-12.0); Monocyte# 0.81 X10^3/uL; Monocyte% 10.8 % (0-10); NRBC Flagged by Analyzer 0 % (0-5); Neutrophil # 3.69 X10^3/uL (2.7-7.7); Neutrophil % 49.2 % (47-70); Platelet Count 289 K/mm3 (150-450); RBC Distribution Width CV 13.3 % (11.6-14.6); RBC Distribution Width SD 45.5 fl (35.1-43.9); Red Blood Count 4.38 M/mm3 (4.2-5.4); White Blood Count 7.5 K/mm3 (4.4-11.0)
[2024-01-15 07:56] LABS: Anion Gap 7 (5-15); BUN 24 mg/dL (7-18); BUN/Creat Ratio 22.2 RATIO (10-20); Calcium,Total 8.8 mg/dL (8.5-10.1); Chloride 111 mmol/L (98-107); Creatinine, Serum 1.08 mg/dL (0.55-1.02); EST Glomerular Filtration Rate 52 mL/min (>60); Est Glom Filt Rate - Afr Amer 63 mL/min (>60); Glucose 116 mg/dL (74-106); Potassium 3.7 mmol/L (3.5-5.1); Sodium Level 142 mmol/L (136-145)
== END ==
LOC: OLS.WHLEAS 05:00
PROVIDERS: PCP Internal Medicine; Visit Provider Internal Medicine
DX: E11.40 Type 2 diabetes mellitus with diabetic neuropathy, unspecified (principal); J44.9 Chronic obstructive pulmonary disease, unspecified; I10 Essential (primary) hypertension; E78.00 Pure hypercholesterolemia, unspecified
CPT/HCPCS: 36415; 80048; 85025

== ENCOUNTER → 2024-02-15 | Outpatient (REF) | payer MEDICARE, MEDICAID, SELFPAY ==
[2024-02-15 06:55] LABS: Absolute Lymphocyte Count 1.88 X10^3/uL (0.83-4.51); Absolute Neutrophil Count 3.7 X10^3/uL (2.0-7.7); Basophil# 0.08 X10^3/uL; Basophil% 1.2 % (0-1); Eosinophils% 4.4 % (0-5); Hematocrit 41.2 % (37-47); Hemoglobin 13.8 g/dL (12.0-15.0); Lymphocyte # 1.88 X10^3/ul (0.83-4.51); Lymphocyte % 27.4 % (19-41); Mean Corp Hgb Conc 33.5 g/dL (32-36); Mean Corpuscular Hgb 31.2 pg (27.0-32.0); Mean Platelet Vol. 9.2 fl (6.2-12.0); Monocyte# 0.92 X10^3/uL; Monocyte% 13.4 % (0-10); NRBC Flagged by Analyzer 0 % (0-5); Neutrophil # 3.65 X10^3/uL (2.7-7.7); Neutrophil % 53.3 % (47-70); Platelet Count 298 K/mm3 (150-450); RBC Distribution Width CV 13.2 % (11.6-14.6); RBC Distribution Width SD 45.2 fl (35.1-43.9); Red Blood Count 4.43 M/mm3 (4.2-5.4); White Blood Count 6.9 K/mm3 (4.4-11.0)
[2024-02-15 07:04] LABS: Anion Gap 5 (5-15); BUN 19 mg/dL (7-18); Calcium,Total 9.1 mg/dL (8.5-10.1); Chloride 110 mmol/L (98-107); Creatinine, Serum 0.95 mg/dL (0.55-1.02); EST Glomerular Filtration Rate 60 mL/min (>60); Est Glom Filt Rate - Afr Amer 73 mL/min (>60); Glucose 143 mg/dL (74-106); Potassium 3.6 mmol/L (3.5-5.1); Sodium Level 140 mmol/L (136-145)
== END ==
LOC: OLS.WHLEAS 05:00
PROVIDERS: PCP Internal Medicine; Visit Provider Internal Medicine
DX: E11.40 Type 2 diabetes mellitus with diabetic neuropathy, unspecified (principal); J44.9 Chronic obstructive pulmonary disease, unspecified; I10 Essential (primary) hypertension; E78.00 Pure hypercholesterolemia, unspecified
CPT/HCPCS: 36415; 80048; 85025

== ENCOUNTER → 2024-02-23 | Outpatient (REF) | payer MEDICARE, MEDICAID, SELFPAY | LOC: OLS.WHLEAS 12:00 | PROVIDERS: PCP Internal Medicine; Visit Provider Internal Medicine | DX: N39.0 Urinary tract infection, site not specified (principal) | CPT/HCPCS: 87077; 87086; 87088; 87186 ==

== ENCOUNTER → 2024-03-14 | Outpatient (REF) | payer MEDICARE, MEDICAID, SELFPAY ==
[2024-03-14 08:33] LABS: Hemoglobin A1c 7.1 % (3.8-5.6)
[2024-03-14 09:27] LABS: AST(SGOT) 23 U/L (15-37); Alanine Aminotransfer ALT/SGPT 20 U/L (13-56); Albumin, Serum 2.9 g/dL (3.2-5.0); Alkaline Phosphatase 91 U/L (45-117); Bilirubin, Direct 0.12 mg/dL (0.00-0.30); Globulin 3.6 g/dL (2.2-4.2); Protein, Total 6.5 g/dL (6.4-8.2); Thyroid Stim Hormone (TSH) 0.393 uIU/mL (0.358-3.740)
[2024-03-14 18:55] LABS: Vitamin D,25 Hydroxy 91.4 ng/mL
[2024-03-15 03:27] LABS: Absolute Lymphocyte Count 2.31 X10^3/uL (0.83-4.51); Absolute Neutrophil Count 4.2 X10^3/uL (2.0-7.7); Basophil# 0.08 X10^3/uL; Eosinophil# 0.33 X10^3/uL; Eosinophils% 4.2 % (0-5); Hematocrit 41.7 % (37-47); Hemoglobin 13.9 g/dL (12.0-15.0); Lymphocyte # 2.31 X10^3/ul (0.83-4.51); Lymphocyte % 29.3 % (19-41); Mean Corp Hgb Conc 33.3 g/dL (32-36); Mean Corpuscular Hgb 31.3 pg (27.0-32.0); Mean Corpuscular Volume 93.9 fL (81-99); Mean Platelet Vol. 9.2 fl (6.2-12.0); Monocyte# 0.92 X10^3/uL; Monocyte% 11.7 % (0-10); NRBC Flagged by Analyzer 0 % (0-5); Neutrophil # 4.22 X10^3/uL (2.7-7.7); Neutrophil % 53.5 % (47-70); Platelet Count 353 K/mm3 (150-450); RBC Distribution Width CV 13.7 % (11.6-14.6); RBC Distribution Width SD 47.3 fl (35.1-43.9); Red Blood Count 4.44 M/mm3 (4.2-5.4); White Blood Count 7.9 K/mm3 (4.4-11.0)
[2024-03-15 03:37] LABS: Anion Gap 8 (5-15); BUN 20 mg/dL (7-18); BUN/Creat Ratio 21.7 RATIO (10-20); Calcium,Total 9.2 mg/dL (8.5-10.1); Chloride 110 mmol/L (98-107); Creatinine, Serum 0.92 mg/dL (0.55-1.02); EST Glomerular Filtration Rate 62 mL/min (>60); Est Glom Filt Rate - Afr Amer 75 mL/min (>60); Glucose 125 mg/dL (74-106); Potassium 4.1 mmol/L (3.5-5.1); Sodium Level 140 mmol/L (136-145)
== END ==
LOC: OLS.WHLEAS 05:00
PROVIDERS: PCP Internal Medicine; Visit Provider Internal Medicine
DX: E11.40 Type 2 diabetes mellitus with diabetic neuropathy, unspecified (principal); J44.9 Chronic obstructive pulmonary disease, unspecified; I10 Essential (primary) hypertension; E78.00 Pure hypercholesterolemia, unspecified; E55.9 Vitamin D deficiency, unspecified
CPT/HCPCS: 36415; 80048; 80076; 82306; 83036; 84443; 85025

== ENCOUNTER → 2024-04-12 03:00 | Outpatient (REF) | payer MEDICARE, MEDICAID, SELFPAY ==
[2024-04-12 08:44] LABS: Color, Urine Yellow (Yellow); Glucose, Dipstick 1000 mg/dl (Normal); Ketone-Dipstick Negative (Negative); Leukocyte Esterase-Dipstick 100 /ul (Negative); Nitrite-Dipstick Negative (Negative); Occult Blood-Urine Negative /ul (Negative); Protein-Dipstick 15 mg/dl (Negative); Specific Gravity, Urine 1.015 (1.002-1.030); Urine Bilirubin Dipstick Negative (Negative); Urine Clarity Clear (Clear); Urine Urobilinogen Normal (Normal)
== END ==
LOC: OLS.WHLEAS 03:00
PROVIDERS: PCP Internal Medicine; Visit Provider Internal Medicine
DX: N39.0 Urinary tract infection, site not specified (principal)
CPT/HCPCS: 81002; 87086; 87088

== ENCOUNTER → 2024-04-18 | Outpatient (REF) | payer MEDICARE, MEDICAID, SELFPAY ==
[2024-04-18 10:03] LABS: Absolute Lymphocyte Count 2.32 X10^3/uL (0.83-4.51); Absolute Neutrophil Count 4.9 X10^3/uL (2.0-7.7); Basophil# 0.07 X10^3/uL; Basophil% 0.8 % (0-1); Eosinophil# 0.28 X10^3/uL; Eosinophils% 3.3 % (0-5); Hematocrit 41.6 % (37-47); Hemoglobin 13.5 g/dL (12.0-15.0); Lymphocyte # 2.32 X10^3/ul (0.83-4.51); Lymphocyte % 27.5 % (19-41); Mean Corp Hgb Conc 32.5 g/dL (32-36); Mean Corpuscular Hgb 30.5 pg (27.0-32.0); Mean Corpuscular Volume 94.1 fL (81-99); Monocyte# 0.83 X10^3/uL; Monocyte% 9.8 % (0-10); NRBC Flagged by Analyzer 0 % (0-5); Neutrophil # 4.91 X10^3/uL (2.7-7.7); Neutrophil % 58.4 % (47-70); Platelet Count 311 K/mm3 (150-450); RBC Distribution Width CV 13.6 % (11.6-14.6); RBC Distribution Width SD 47.7 fl (35.1-43.9); Red Blood Count 4.42 M/mm3 (4.2-5.4); White Blood Count 8.4 K/mm3 (4.4-11.0)
[2024-04-18 10:38] LABS: Anion Gap 8 (5-15); BUN 20 mg/dL (7-18); BUN/Creat Ratio 19.8 RATIO (10-20); Chloride 109 mmol/L (98-107); Creatinine, Serum 1.01 mg/dL (0.55-1.02); EST Glomerular Filtration Rate 56 mL/min (>60); Est Glom Filt Rate - Afr Amer 68 mL/min (>60); Glucose 119 mg/dL (74-106); Sodium Level 140 mmol/L (136-145)
== END ==
LOC: OLS.WHLEAS 05:00
PROVIDERS: PCP Internal Medicine; Visit Provider Internal Medicine
DX: E11.40 Type 2 diabetes mellitus with diabetic neuropathy, unspecified (principal); J44.9 Chronic obstructive pulmonary disease, unspecified; I10 Essential (primary) hypertension; E78.00 Pure hypercholesterolemia, unspecified
CPT/HCPCS: 36415; 80048; 85025

== ENCOUNTER → 2024-05-16 05:00 | Outpatient (REF) | payer MEDICARE, MEDICAID, SELFPAY ==
[2024-05-16 08:26] LABS: Absolute Lymphocyte Count 1.73 X10^3/uL (0.83-4.51); Absolute Neutrophil Count 5.2 X10^3/uL (2.0-7.7); Basophil# 0.05 X10^3/uL; Basophil% 0.6 % (0-1); Eosinophil# 0.24 X10^3/uL; Hematocrit 42.1 % (37-47); Hemoglobin 13.8 g/dL (12.0-15.0); Lymphocyte # 1.73 X10^3/ul (0.83-4.51); Lymphocyte % 21.5 % (19-41); Mean Corp Hgb Conc 32.8 g/dL (32-36); Mean Corpuscular Hgb 31.2 pg (27.0-32.0); Mean Corpuscular Volume 95.2 fL (81-99); Mean Platelet Vol. 9.1 fl (6.2-12.0); Monocyte# 0.86 X10^3/uL; Monocyte% 10.7 % (0-10); NRBC Flagged by Analyzer 0 % (0-5); Neutrophil # 5.15 X10^3/uL (2.7-7.7); Neutrophil % 63.8 % (47-70); Platelet Count 322 K/mm3 (150-450); RBC Distribution Width CV 13.6 % (11.6-14.6); RBC Distribution Width SD 47.7 fl (35.1-43.9); Red Blood Count 4.42 M/mm3 (4.2-5.4); White Blood Count 8.1 K/mm3 (4.4-11.0)
[2024-05-16 08:50] LABS: Anion Gap 8 (5-15); BUN 16 mg/dL (7-18); BUN/Creat Ratio 17.1 RATIO (10-20); Calcium,Total 8.9 mg/dL (8.5-10.1); Chloride 106 mmol/L (98-107); Creatinine, Serum 0.94 mg/dL (0.55-1.02); EST Glomerular Filtration Rate 61 mL/min (>60); Est Glom Filt Rate - Afr Amer 74 mL/min (>60); Glucose 115 mg/dL (74-106); Sodium Level 139 mmol/L (136-145)
== END ==
LOC: OLS.WHLEAS 05:00
PROVIDERS: PCP Internal Medicine; Visit Provider Internal Medicine
DX: J44.9 Chronic obstructive pulmonary disease, unspecified (principal); E11.40 Type 2 diabetes mellitus with diabetic neuropathy, unspecified; I10 Essential (primary) hypertension; R00.0 Tachycardia, unspecified; E78.00 Pure hypercholesterolemia, unspecified
CPT/HCPCS: 36415; 80048; 85025

== ENCOUNTER → 2024-06-13 | Outpatient (REF) | payer MEDICARE, MEDICAID, SELFPAY ==
[2024-06-13 08:02] LABS: Absolute Neutrophil Count 4.6 X10^3/uL (2.0-7.7); Basophil# 0.08 X10^3/uL; Basophil% 0.9 % (0-1); Eosinophil# 0.52 X10^3/uL; Eosinophils% 6.1 % (0-5); Hematocrit 41.4 % (37-47); Hemoglobin 13.3 g/dL (12.0-15.0); Lymphocyte % 26.8 % (19-41); Mean Corp Hgb Conc 32.1 g/dL (32-36); Mean Corpuscular Hgb 30.2 pg (27.0-32.0); Mean Corpuscular Volume 94.1 fL (81-99); Monocyte# 1.03 X10^3/uL; NRBC Flagged by Analyzer 0 % (0-5); Neutrophil # 4.63 X10^3/uL (2.7-7.7); Neutrophil % 53.9 % (47-70); Platelet Count 365 K/mm3 (150-450); RBC Distribution Width CV 13.2 % (11.6-14.6); RBC Distribution Width SD 45.3 fl (35.1-43.9); White Blood Count 8.6 K/mm3 (4.4-11.0)
[2024-06-13 09:32] LABS: Hemoglobin A1c 7.1 % (<=5.6)
[2024-06-13 14:06] LABS: AST(SGOT) 24 U/L (<=31); Alanine Aminotransfer ALT/SGPT 11 U/L (<=34); Albumin, Serum 3.4 g/dL (3.4-4.8); Alkaline Phosphatase 83 U/L (35-104); Anion Gap 13 (5-15); BUN 12 mg/dL (4-19); BUN/Creat Ratio 14.7 RATIO (10-20); Carbon Dioxide 22.4 mmol/L (21.0-32.0); Chloride 106 mmol/L (98-108); Cholesterol 142 mg/dL (<=200); EST Glomerular Filtration Rate 74 (>60); Globulin 2.9 g/dL (2.2-4.2); Glucose 106 mg/dL (70-99); High Density Lipoprotein 41 mg/dL; Low Density Lipoprotein Calc. 56 mg/dL; Protein, Total 6.3 g/dL (5.9-8.4); Sodium Level 141 mmol/L (133-145); Thyroid Stim Hormone (TSH) 0.397 uIU/mL (0.300-4.200); Total Bilirubin 0.25 mg/dL (0.00-1.30); Triglycerides 227 mg/dL; Very Low Density Lipoprotein 45 mg/dL (5-40); Vitamin D,25 Hydroxy 52.5 ng/mL (30-100)
== END ==
LOC: OLS.WHLEAS 05:00
PROVIDERS: PCP Internal Medicine; Visit Provider Internal Medicine
DX: E11.40 Type 2 diabetes mellitus with diabetic neuropathy, unspecified (principal); J44.9 Chronic obstructive pulmonary disease, unspecified; I10 Essential (primary) hypertension; E78.00 Pure hypercholesterolemia, unspecified; R00.0 Tachycardia, unspecified; E55.9 Vitamin D deficiency, unspecified
CPT/HCPCS: 36415; 80048; 80061; 80076; 82306; 83036; 84443; 85025

== ENCOUNTER → 2024-07-18 | Outpatient (REF) | payer MEDICARE, MEDICAID, SELFPAY ==
[2024-07-18 08:03] LABS: Absolute Lymphocyte Count 3.13 X10^3/uL (0.83-4.51); Absolute Neutrophil Count 6.3 X10^3/uL (2.0-7.7); Basophil% 0.9 % (0-1); Eosinophil# 0.37 X10^3/uL; Eosinophils% 3.4 % (0-5); Hematocrit 42.9 % (37-47); Hemoglobin 14.1 g/dL (12.0-15.0); Lymphocyte # 3.13 X10^3/ul (0.83-4.51); Lymphocyte % 28.4 % (19-41); Mean Corp Hgb Conc 32.9 g/dL (32-36); Mean Corpuscular Hgb 30.7 pg (27.0-32.0); Mean Corpuscular Volume 93.3 fL (81-99); Monocyte# 1.07 X10^3/uL; Monocyte% 9.7 % (0-10); NRBC Flagged by Analyzer 0 % (0-5); Neutrophil # 6.33 X10^3/uL (2.7-7.7); Neutrophil % 57.2 % (47-70); Platelet Count 346 K/mm3 (150-450); RBC Distribution Width CV 14.5 % (11.6-14.6); RBC Distribution Width SD 49.6 fl (35.1-43.9)
[2024-07-18 08:31] LABS: Anion Gap 11 (5-15); BUN 17 mg/dL (4-19); Calcium,Total 8.9 mg/dL (7.6-11.0); Carbon Dioxide 22.9 mmol/L (21.0-32.0); Chloride 106 mmol/L (98-108); Creatinine, Serum 0.85 mg/dL (0.70-1.20); EST Glomerular Filtration Rate 70 (>60); Glucose 120 mg/dL (70-99); Potassium 4.1 mmol/L (3.3-5.1); Sodium Level 140 mmol/L (133-145)
== END ==
LOC: OLS.WHLEAS 05:00
PROVIDERS: PCP Internal Medicine; Visit Provider Internal Medicine
DX: J44.9 Chronic obstructive pulmonary disease, unspecified (principal); E11.40 Type 2 diabetes mellitus with diabetic neuropathy, unspecified; I10 Essential (primary) hypertension; R00.0 Tachycardia, unspecified; E78.00 Pure hypercholesterolemia, unspecified
CPT/HCPCS: 36415; 80048; 85025

== ENCOUNTER → 2024-08-15 04:00 | Outpatient (REF) | payer MEDICARE, MEDICAID, SELFPAY ==
[2024-08-15 07:43] LABS: Absolute Lymphocyte Count 2.51 X10^3/uL (0.83-4.51); Basophil# 0.05 X10^3/uL; Basophil% 0.6 % (0-1); Eosinophil# 0.23 X10^3/uL; Eosinophils% 2.6 % (0-5); Hematocrit 40.7 % (37-47); Hemoglobin 13.3 g/dL (12.0-15.0); Lymphocyte # 2.51 X10^3/ul (0.83-4.51); Lymphocyte % 28.5 % (19-41); Mean Corp Hgb Conc 32.7 g/dL (32-36); Mean Corpuscular Hgb 30.7 pg (27.0-32.0); Mean Platelet Vol. 9.2 fl (6.2-12.0); Monocyte# 0.95 X10^3/uL; Monocyte% 10.8 % (0-10); NRBC Flagged by Analyzer 0 % (0-5); Neutrophil # 5.04 X10^3/uL (2.7-7.7); Neutrophil % 57.3 % (47-70); Platelet Count 321 K/mm3 (150-450); RBC Distribution Width CV 15.1 % (11.6-14.6); RBC Distribution Width SD 52.7 fl (35.1-43.9); Red Blood Count 4.33 M/mm3 (4.2-5.4); White Blood Count 8.8 K/mm3 (4.4-11.0)
[2024-08-15 07:49] LABS: Anion Gap 12 (5-15); BUN 16 mg/dL (4-19); BUN/Creat Ratio 21.2 RATIO (10-20); Carbon Dioxide 22.5 mmol/L (21.0-32.0); Chloride 107 mmol/L (98-108); Creatinine, Serum 0.75 mg/dL (0.70-1.20); EST Glomerular Filtration Rate 80 (>60); Glucose 123 mg/dL (70-99); Sodium Level 141 mmol/L (133-145)
== END ==
LOC: OLS.WHLEAS 04:00
PROVIDERS: PCP Internal Medicine; Referring Provider Internal Medicine; Visit Provider Internal Medicine
DX: E11.40 Type 2 diabetes mellitus with diabetic neuropathy, unspecified (principal); J44.9 Chronic obstructive pulmonary disease, unspecified; I10 Essential (primary) hypertension
CPT/HCPCS: 36415; 80048; 85025

== ENCOUNTER → 2024-09-12 | Outpatient (REF) | payer MEDICARE, MEDICAID, SELFPAY ==
[2024-09-12 08:54] LABS: Absolute Lymphocyte Count 2.85 X10^3/uL (0.83-4.51); Absolute Neutrophil Count 5.4 X10^3/uL (2.0-7.7); Basophil# 0.05 X10^3/uL; Basophil% 0.5 % (0-1); Eosinophil# 0.29 X10^3/uL; Hematocrit 43.9 % (37-47); Hemoglobin 14.4 g/dL (12.0-15.0); Lymphocyte # 2.85 X10^3/ul (0.83-4.51); Lymphocyte % 29.8 % (19-41); Mean Corp Hgb Conc 32.8 g/dL (32-36); Mean Corpuscular Hgb 30.9 pg (27.0-32.0); Mean Corpuscular Volume 94.2 fL (81-99); Mean Platelet Vol. 9.4 fl (6.2-12.0); Monocyte# 0.96 X10^3/uL; NRBC Flagged by Analyzer 0 % (0-5); Neutrophil # 5.38 X10^3/uL (2.7-7.7); Neutrophil % 56.4 % (47-70); Platelet Count 358 K/mm3 (150-450); RBC Distribution Width CV 15.1 % (11.6-14.6); RBC Distribution Width SD 52.7 fl (35.1-43.9); Red Blood Count 4.66 M/mm3 (4.2-5.4); White Blood Count 9.6 K/mm3 (4.4-11.0)
[2024-09-12 09:30] LABS: Hemoglobin A1c 6.8 % (<=5.6)
[2024-09-12 18:07] LABS: AST(SGOT) 25 U/L (<=31); Alanine Aminotransfer ALT/SGPT 5 U/L (<=34); Albumin, Serum 3.7 g/dL (3.4-4.8); Alkaline Phosphatase 79 U/L (35-104); Anion Gap 12 (5-15); BUN 16 mg/dL (4-19); Bilirubin, Direct 0.09 mg/dL (0.00-0.30); Calcium,Total 9.2 mg/dL (7.6-11.0); Carbon Dioxide 21.1 mmol/L (21.0-32.0); Chloride 105 mmol/L (98-108); Creatinine, Serum 0.82 mg/dL (0.70-1.20); EST Glomerular Filtration Rate 72 (>60); Globulin 2.6 g/dL (2.2-4.2); Glucose 106 mg/dL (70-99); Potassium 4.1 mmol/L (3.3-5.1); Protein, Total 6.2 g/dL (5.9-8.4); Sodium Level 139 mmol/L (133-145); Thyroid Stim Hormone (TSH) 0.304 uIU/mL (0.300-4.200); Vitamin D,25 Hydroxy 44.2 ng/mL (30-100)
[2024-09-13 16:00] LABS: Total Bilirubin 0.22 mg/dL (0.00-1.30)
== END ==
LOC: OLS.WHLEAS 05:00
PROVIDERS: PCP Internal Medicine; Visit Provider Internal Medicine
DX: E11.40 Type 2 diabetes mellitus with diabetic neuropathy, unspecified (principal); J44.9 Chronic obstructive pulmonary disease, unspecified; I10 Essential (primary) hypertension; E78.00 Pure hypercholesterolemia, unspecified; E55.9 Vitamin D deficiency, unspecified
CPT/HCPCS: 36415; 80048; 80076; 82306; 83036; 84443; 85025

== ENCOUNTER → 2024-10-17 | Outpatient (REF) | payer MEDICARE, MEDICAID, SELFPAY ==
[2024-10-17 08:23] LABS: Hematocrit 44.8 % (37-47); Hemoglobin 14.6 g/dL (12.0-15.0); Immature Granulocytes Count 0.040 X10^3/uL (0.0-0.0); Mean Corp Hgb Conc 32.6 g/dL (32-36); Mean Corpuscular Volume 95.1 fL (81-99); Mean Platelet Vol. 9.0 fl (6.2-12.0); NRBC Flagged by Analyzer 0 % (0-5); Platelet Count 349 K/mm3 (150-450); RBC Distribution Width CV 13.5 % (11.6-14.6); RBC Distribution Width SD 47.8 fl (35.1-43.9); Red Blood Count 4.71 M/mm3 (4.2-5.4); White Blood Count 8.9 K/mm3 (4.4-11.0)
[2024-10-17 08:45] LABS: Anion Gap 12 (5-15); BUN 16 mg/dL (4-19); BUN/Creat Ratio 19.1 RATIO (10-20); Calcium,Total 9.1 mg/dL (7.6-11.0); Carbon Dioxide 21.3 mmol/L (21.0-32.0); Chloride 106 mmol/L (98-108); Glucose 108 mg/dL (70-99); Potassium 4.1 mmol/L (3.3-5.1)
== END ==
LOC: OLS.WHLEAS 05:00
PROVIDERS: PCP Internal Medicine; Visit Provider Internal Medicine
DX: E11.40 Type 2 diabetes mellitus with diabetic neuropathy, unspecified (principal); I10 Essential (primary) hypertension; J44.9 Chronic obstructive pulmonary disease, unspecified
CPT/HCPCS: 36415; 80048; 85025

== ENCOUNTER → 2024-11-14 05:00 | Outpatient (REF) | payer MEDICARE, MEDICAID, SELFPAY ==
[2024-11-14 08:20] LABS: Hematocrit 43.6 % (37-47); Hemoglobin 14.3 g/dL (12.0-15.0); Immature Granulocytes Count 0.040 X10^3/uL (0.0-0.0); Mean Corp Hgb Conc 32.8 g/dL (32-36); Mean Corpuscular Volume 95.6 fL (81-99); Mean Platelet Vol. 9.7 fl (6.2-12.0); NRBC Flagged by Analyzer 0 % (0-5); Platelet Count 337 K/mm3 (150-450); RBC Distribution Width CV 13.5 % (11.6-14.6); RBC Distribution Width SD 47.7 fl (35.1-43.9); Red Blood Count 4.56 M/mm3 (4.2-5.4); White Blood Count 8.8 K/mm3 (4.4-11.0)
[2024-11-14 08:43] LABS: Anion Gap 12 (5-15); BUN 15 mg/dL (4-19); BUN/Creat Ratio 19.5 RATIO (10-20); Calcium,Total 9.0 mg/dL (7.6-11.0); Carbon Dioxide 24.0 mmol/L (21.0-32.0); Chloride 105 mmol/L (98-108); Glucose 109 mg/dL (70-99); Potassium 4.0 mmol/L (3.3-5.1)
== END ==
LOC: OLS.WHLEAS 05:00
PROVIDERS: PCP Internal Medicine; Visit Provider Internal Medicine
DX: E11.40 Type 2 diabetes mellitus with diabetic neuropathy, unspecified (principal); J44.9 Chronic obstructive pulmonary disease, unspecified; I10 Essential (primary) hypertension; E78.00 Pure hypercholesterolemia, unspecified
CPT/HCPCS: 36415; 80048; 85025

== ENCOUNTER 2024-11-25 20:59 | Emergency (ER) | payer MEDICARE, MEDICAID, SELFPAY ==
[2024-11-25 21:01] VITALS: BP 157/80; PULSE 69; RESP 16; TEMP 36.9; O2SAT 96; BMI 27.2
--- NOTE | 2024-11-25 22:09 | EX.ED.UPPERE ---
HPI History of Present Illness Chief Complaint: Upper Extremity Injury Narrative Narrative: Chief complaint and HPI: Chronic right shoulder pain. 79-year-old female with past medical history of HTN, HLD, osteoarthritis, Parkinson's disease presents for evaluation of chronic right shoulder pain. Patient states she has had pain in her right shoulder for approximately 5 years. She follows with pain management. She uses Tylenol, gabapentin, lidocaine patches. She states this past week with the weather change she has had increased pain in her right shoulder as well as her other joints such as her right knee and right foot. She states she has known arthritis in these areas. Patient states she told the nursing facility that her pain was worse in her right shoulder so they brought her to the emergency department. She denies any fever, chills, shortness of breath, chest pain, abdominal pain, nausea, vomiting, numbness/tingling. Denies any trauma. Review of systems: See HPI Medications: As listed on the chart Allergies: As listed on the chart PFSH: Per chart Vital signs: As listed on the chart. Reviewed. Physical exam: Gen: A&O x3, NAD Head: Normocephalic, atraumatic Eyes: No sclera icterus, conjunctiva clear, PERRL ENT: Moist mucous membranes Neck: Trachea midline, No JVD, full range of motion, nontender CV: RRR, no murmurs, no peripheral edema Resp: Lungs CTA BL, no w/r/c GI: Abd soft, non-distended, non-tender, no r/r/g Musc: Full ROM of all the extremities including the right upper extremity, no deformity, right shoulder without signs of trauma, shoulder mildly tender to palpation with passive and active range of motion, radial pulses +2 bilaterally, good capillary refill, sensation intact, compartments soft, lidocaine patch located on the shoulder I did inspect underneath that without signs of rash, joints are not erythematous/warm/swollen, DP/PT pulses +2 bilaterally, right knee and foot unremarkable, strength equal in all extremities Skin: Warm, dry Neuro: Alert, oriented, grossly intact, sensation intact Psych: Cooperative, appropriate mood and affect [facility] Medical History (Updated 11/08/24 @ 07:[address] Anamaria Hudson MD) Fecal incontinence Nocturia Urge incontinence Overactive bladder Primary osteoarthritis, right shoulder Right shoulder pain Edema Takotsubo cardiomyopathy History of diabetes mellitus History of coronary artery disease History of adenomatous polyp of colon Wears dentures Wears hearing aid Wears glasses Anxiety History of steroid therapy Thyroid disease Walker as ambulation aid Ambulates with cane Arthritis High cholesterol Back pain Asthma History of echocardiogram Hypertension Cardiology follow-up encounter History of rheumatic fever History of heart attack Positive colorectal cancer screening using Cologuard test COVID-19 Ischemic cardiomyopathy Obesity Atherosclerotic heart disease of [place] coronary artery without angina pectoris Non-STEMI (non-ST elevated myocardial infarction) (12/13/20) Tachycardia Hyperlipidemia Essential hypertension Left against medical advice (12/19/20) History of tachycardia Rheumatoid arthritis Hypothyroidism Thyromegaly Diabetic neuropathy Diabetes Vitamin D deficiency Depressive disorder Insomnia Hearing loss Varicosities of leg Allergic rhinitis Dyspepsia Osteoarthritis Fibromyalgia Home Medications ?Medication ?Instructions ?Recorded ?Last Taken ?Type azelastine 137 mcg (0.1 %) nasal 1 spray intranasal BID allergies 01/29/18 03/08/22 08:00 History spray loratadine 10 mg tablet (Claritin) 10 mg PO DAILY allergies 01/29/18 03/07/22 History levothyroxine 100 mcg tablet 50 mcg PO QODAY THYROID 12/19/20 03/08/22 07:00 History levothyroxine 100 mcg tablet 100 mcg PO Q OTHER DAY 02/28/21 03/07/22 07:00 History aspirin 81 mg tablet,delayed 81 mg PO 1700 [email or web address] 05/22/21 03/08/22 17:00 History release fluticasone propionate 50 1 spray intranasal BID allergies 05/28/21 03/08/22 08:00 History mcg/actuation nasal spray,suspension potassium chloride 10 mEq 10 meq PO DAILY supplement 05/28/21 03/08/22 08:00 History tablet,extended release(part/cryst) dapagliflozin propanediol 10 mg 10 mg PO DAILY diabetes 10/08/21 03/08/22 08:00 History tablet (Farxiga) albuterol sulfate 2.5 mg/3 mL 2.5 mg inhalation PRN PRN 01/08/23 Unknown History (0.083 %) solution for nebulization shortness of breath or wheezing fluorometholone 0.1 % eye 1 drp ophthalmic (eye) DAILY eye 01/08/23 Unknown History drops,suspension health vibegron 75 mg tablet (Gemtesa) 75 mg PO DAILY bladder 01/08/23 Unknown History albuterol sulfate 90 mcg/actuation inhalation 07/27/23 Unknown History aerosol inhaler cholecalciferol (vitamin D3) 62.5 mcg PO 07/27/23 Unknown History mcg (2,500 unit) capsule fluticasone furoate 200 1 inh inhalation QDAY 07/27/23 Unknown History mcg/actuation blister powder for inhalation (Arnuity Ellipta) lifitegrast 5 % eye drops in a 1 drp ophthalmic (eye) BID 07/27/23 Unknown History dropperette (Xiidra) metoprolol tartrate 25 mg tablet 12.5 mg (1/2 x 25 mg) PO BID blood 10/07/23 Unknown Rx pressure #90 tabs furosemide 20 mg tablet 20 mg PO DAILY 11/21/23 Unknown History gabapentin 100 mg capsule 100 mg PO BID 11/21/23 Unknown History carbidopa 25 mg-levodopa 100 mg 1 tab PO TID 02/23/24 Unknown History disintegrating tablet losartan 100 mg tablet 50 mg PO BID 02/23/24 Unknown History montelukast 10 mg tablet 5 mg PO QPM allergies 02/23/24 Unknown History multivitamin 1 tab PO QAM 02/23/24 Unknown History acetaminophen 325 mg tablet 325 mg PO ONCE PRN 11/07/24 Unknown History (Tylenol) atorvastatin 10 mg tablet mg PO 11/07/24 Unknown History cascara sagrada 450 mg capsule mg PO 11/07/24 Unknown History sertraline 50 mg tablet mg PO 11/07/24 Unknown History vitamin B complex 1 tab PO QDAY 11/07/24 Unknown History Allergy/AdvReac Type Severity Reaction Status Date / Time azithromycin Allergy Severe Other Verified 11/25/24 21:01 aspirin Allergy Intermediate heart Verified 11/25/24 21:01 races, dizziness povidone-iodine (From Allergy Intermediate rash Verified 11/25/24 21:01 Betadine) soap (From Betadine) Allergy Intermediate rash Verified 11/25/24 21:01 amitriptyline Allergy Unknown Unknown Verified 11/25/24 21:01 doxepin Allergy Unknown unknown Verified 11/25/24 21:01 latex Allergy Unknown Rash Verified 11/25/24 21:01 phenylephrine (From Entex LA) Allergy Unknown Unknown Verified 11/25/24 21:01 phenylpropanolamine (From Allergy Unknown Unknown Verified 11/25/24 21:01 Entex LA) pseudoephedrine Allergy Unknown heart races Verified 11/25/24 21:01 Sulfa (Sulfonamide Allergy Unknown Unknown Verified 11/25/24 21:01 Antibiotics) Family History Father Asthma Diabetes High cholesterol Heart disease Hypertension Mother Arthritis Diabetes Heart disease Hypertension Sister Arthritis Lupus Brother Arthritis Surgical History History of colonoscopy (05/27/21) History of cardiac catheterization History of coronary artery stent placement History of coronary artery stent placement (10/14/21) History of hysterectomy History of repair of rectocele Social History household members: spouse Smoking Status: Never smoker alcohol intake: never substance use type: does not use caffeine: Yes Type: tea Number of servings: 2 EXAM Physical Exam Const Vital Signs: 11/25/24 21:01 Temperature 98.4 F Temperature Source Oral Pulse Rate 69 Respiratory Rate 16 Blood Pressure 157/80 H Blood Pressure Mean 105 Pulse Ox 96 Oxygen Delivery Method Room Air MDM MDM MDM Narrative Medical decision making narrative: 79-year-old female with past medical history of HTN, HLD, osteoarthritis, Parkinson's disease presents for evaluation of chronic right shoulder pain. Patient states she has had pain in her right shoulder for approximately 5 years. She follows with pain management. She uses Tylenol, gabapentin, lidocaine patches. States is weak with the weather change she has had increased pain in the right shoulder as well as her other joints with known osteoarthritis such as her right knee and right foot. On presentation, patient no acute distress. Vitals are stable other than mild hypertension. Physical exam is unremarkable. Given patient's pain is chronic in nature without trauma, I do not think any imaging is needed at this time. Patient and confirmed understanding. I recommended heating pads as needed as well as IcyHot in addition to her Tylenol, gabapentin, lidocaine patches. to help with her acute pain here in the emergency department and she will be given IM morphine and Zofran. She will be monitored at the nursing facility. I did let her know that it can increase fatigue, confusion, weakness. She confirmed understanding the plan. She needs to follow-up with pain management and primary care physician. She states she has not seen an orthopedic physician therefore we will refer her to one. Patient is stable to discharge home. Impression: 1. Chronic right shoulder pain 2. History of osteoarthritis Discharge Plan Triage Chief Complaint: Upper Extremity Injury ED Provider: Brennen Escalante Dx/Rx/DC Orders Prescriptions: No Action azelastine 137 mcg (0.1 %) aerosol,spray 1 spray INTRANASAL BID loratadine [Claritin] 10 mg tablet 10 mg PO DAILY levothyroxine 100 mcg tablet 100 mcg PO Q OTHER DAY Rx Instructions: Alternate 50 mcg with 100 mcg. potassium chloride 10 mEq tablet,ER particles/crystals 10 meq PO DAILY montelukast 10 mg tablet 5 mg PO QPM albuterol sulfate 90 mcg/actuation HFA aerosol inhaler inhalation Arnuity Ellipta 200 mcg/actuation blister with device 1 inh inhalation QDAY Xiidra 5 % dropperette 1 drp ophthalmic (eye) BID Rx Instructions: administer approximately 12 hours apart cholecalciferol (vitamin D3) 62.5 mcg (2,500 unit) capsule PO multivitamin Tablet 1 tab PO QAM carbidopa-levodopa 25-100 mg tablet,disintegrating 1 tab PO TID cascara sagrada 450 mg capsule PO acetaminophen [Tylenol] 325 mg tablet 325 mg PO ONCE PRN atorvastatin 10 mg tablet PO Patient Comments: [NO ORIGINAL SIG] vitamin B complex Tablet 1 tab PO QDAY sertraline 50 mg tablet PO Patient Comments: [NO ORIGINAL SIG] levothyroxine 100 mcg tablet 50 mcg PO QODAY fluticasone propionate 50 mcg/actuation spray,suspension 1 spray INTRANASAL BID Gemtesa 75 mg tablet 75 mg PO DAILY albuterol sulfate 2.5 mg /3 mL (0.083 %) solution for nebulization 2.5 mg inhalation PRN PRN (Reason: shortness of breath or wheezing) fluorometholone 0.1 % drops,suspension 1 drp ophthalmic (eye) DAILY furosemide 20 mg tablet 20 mg PO DAILY gabapentin 100 mg capsule 100 mg PO BID aspirin 81 mg tablet,delayed release (DR/EC) 81 mg PO 1700 dapagliflozin propanediol [Farxiga] 10 mg tablet 10 mg PO DAILY metoprolol tartrate 25 mg tablet 12.5 mg PO BID Qty: 90 3RF losartan 100 mg tablet 50 mg PO BID Primary Care Provider: Su Thomas Referrals: Su Thomas DO [Primary Care Provider] - Print Language: Pakistani
[2024-11-25 22:27] VITALS: BP 164/72; PULSE 66; RESP 18; TEMP 36.9; O2SAT 95
--- NOTE | 2024-11-26 01:13 | ED.RN ---
multiple attempts to call report to [facility]. transferred and then no answer.
== END 2024-11-26 01:14 | disposition home or self-care (01) ==
LOC: ED 22:31
PROVIDERS: Emergency Provider Surgery; PCP Internal Medicine; Visit Provider Surgery
DX: M25.511 Pain in right shoulder (principal); E11.9 Type 2 diabetes mellitus without complications; I25.10 Atherosclerotic heart disease of native coronary artery without angina pectoris; M19.90 Unspecified osteoarthritis, unspecified site; E78.00 Pure hypercholesterolemia, unspecified; I25.2 Old myocardial infarction; Z79.899 Other long term (current) drug therapy; E03.9 Hypothyroidism, unspecified; Z79.890 Hormone replacement therapy; Z79.82 Long term (current) use of aspirin; J45.909 Unspecified asthma, uncomplicated; Z79.51 Long term (current) use of inhaled steroids; Z79.84 Long term (current) use of oral hypoglycemic drugs; F41.9 Anxiety disorder, unspecified; Z95.5 Presence of coronary angioplasty implant and graft; Z90.710 Acquired absence of both cervix and uterus; I10 Essential (primary) hypertension
CPT/HCPCS: 96372; 99284

== ENCOUNTER → 2024-12-12 05:00 | Outpatient (REF) | payer MEDICARE, MEDICAID, SELFPAY ==
[2024-12-12 08:28] LABS: Hematocrit 42.6 % (37-47); Hemoglobin 13.9 g/dL (12.0-15.0); Immature Granulocytes Count 0.040 X10^3/uL (0.0-0.0); Mean Corp Hgb Conc 32.6 g/dL (32-36); Mean Corpuscular Volume 94.5 fL (81-99); Mean Platelet Vol. 8.9 fl (6.2-12.0); NRBC Flagged by Analyzer 0 % (0-5); Platelet Count 398 K/mm3 (150-450); RBC Distribution Width CV 13.7 % (11.6-14.6); RBC Distribution Width SD 47.6 fl (35.1-43.9); Red Blood Count 4.51 M/mm3 (4.2-5.4); White Blood Count 8.6 K/mm3 (4.4-11.0)
[2024-12-12 09:12] LABS: AST(SGOT) 25 U/L (<=31); Alanine Aminotransfer ALT/SGPT 6 U/L (<=34); Albumin, Serum 3.6 g/dL (3.4-4.8); Alkaline Phosphatase 80 U/L (35-104); Anion Gap 12 (5-15); BUN 15 mg/dL (4-19); BUN/Creat Ratio 19.7 RATIO (10-20); Bilirubin, Direct 0.09 mg/dL (0.00-0.30); Calcium,Total 9.2 mg/dL (7.6-11.0); Carbon Dioxide 20.3 mmol/L (21.0-32.0); Chloride 108 mmol/L (98-108); Cholesterol 183 mg/dL (<=200); Globulin 2.8 g/dL (2.2-4.2); Glucose 122 mg/dL (70-99); Low Density Lipoprotein Calc. 90 mg/dL; Potassium 4.1 mmol/L (3.3-5.1); Triglycerides 265 mg/dL; Very Low Density Lipoprotein 53 mg/dL (5-40); Vitamin D,25 Hydroxy 48.2 ng/mL (30-100); cholesterol:hdl ratio screen 4.55
== END ==
LOC: OLS.WHLEAS 05:00
PROVIDERS: PCP Internal Medicine; Visit Provider Internal Medicine
DX: E11.40 Type 2 diabetes mellitus with diabetic neuropathy, unspecified (principal); E55.9 Vitamin D deficiency, unspecified; I10 Essential (primary) hypertension; J44.9 Chronic obstructive pulmonary disease, unspecified; E78.00 Pure hypercholesterolemia, unspecified
CPT/HCPCS: 36415; 80048; 80061; 80076; 82306; 83036; 84443; 85025

== ENCOUNTER → 2025-01-11 05:00 | Outpatient (REF) | payer MEDICARE, MEDICAID, SELFPAY | LOC: OLS.WHLEAS 05:00 | PROVIDERS: PCP Internal Medicine; Visit Provider Internal Medicine | DX: E03.9 Hypothyroidism, unspecified (principal); G20.C Parkinsonism, unspecified; E11.40 Type 2 diabetes mellitus with diabetic neuropathy, unspecified; R25.1 Tremor, unspecified; J44.9 Chronic obstructive pulmonary disease, unspecified; J45.909 Unspecified asthma, uncomplicated | CPT/HCPCS: 36415; 84443 ==

== ENCOUNTER 2025-01-15 09:51 | Emergency (ER) | payer MEDICARE, MEDICAID, SELFPAY ==
[2025-01-15 09:53] VITALS: BP 153/68; PULSE 94; RESP 15; TEMP 36.6; O2SAT 98; BMI 25.3
[2025-01-15 13:05] VITALS: BP 125/52; PULSE 79; RESP 18
[2025-01-15 13:25] VITALS: BP 113/75; PULSE 88; RESP 18; TEMP 36.8; O2SAT 94
== END 2025-01-15 14:29 | disposition home or self-care (01) ==
PROVIDERS: Emergency Provider Surgery; PCP Internal Medicine; Visit Provider Surgery
DX: S09.90XA Unspecified injury of head, initial encounter (principal); E11.9 Type 2 diabetes mellitus without complications; Z90.710 Acquired absence of both cervix and uterus; I25.10 Atherosclerotic heart disease of native coronary artery without angina pectoris; S40.011A Contusion of right shoulder, initial encounter; E78.00 Pure hypercholesterolemia, unspecified; I10 Essential (primary) hypertension; W01.10XA Fall on same level from slipping, tripping and stumbling with subsequent striking against unspecified object, initial encounter; I25.2 Old myocardial infarction; E03.9 Hypothyroidism, unspecified; Z79.890 Hormone replacement therapy; Z79.82 Long term (current) use of aspirin; Z79.84 Long term (current) use of oral hypoglycemic drugs; Z79.899 Other long term (current) drug therapy; F41.9 Anxiety disorder, unspecified; J45.909 Unspecified asthma, uncomplicated; Z79.51 Long term (current) use of inhaled steroids; Z95.5 Presence of coronary angioplasty implant and graft
CPT/HCPCS: 70450; 72125; 73030; 99284; A4216

== ENCOUNTER → 2025-01-16 | Outpatient (REF) | payer MEDICARE, MEDICAID, SELFPAY ==
[2025-01-16 07:04] LABS: Hematocrit 42.9 % (37-47); Hemoglobin 14.0 g/dL (12.0-15.0); Immature Granulocytes Count 0.030 X10^3/uL (0.0-0.0); Mean Corp Hgb Conc 32.6 g/dL (32-36); Mean Corpuscular Volume 93.7 fL (81-99); Mean Platelet Vol. 9.3 fl (6.2-12.0); NRBC Flagged by Analyzer 0 % (0-5); Platelet Count 365 K/mm3 (150-450); RBC Distribution Width CV 14.2 % (11.6-14.6); RBC Distribution Width SD 48.8 fl (35.1-43.9); Red Blood Count 4.58 M/mm3 (4.2-5.4); White Blood Count 8.9 K/mm3 (4.4-11.0)
[2025-01-16 07:18] LABS: Anion Gap 12 (5-15); BUN 13 mg/dL (4-19); BUN/Creat Ratio 17.9 RATIO (10-20); Calcium,Total 8.8 mg/dL (7.6-11.0); Carbon Dioxide 22.7 mmol/L (21.0-32.0); Chloride 105 mmol/L (98-108); Glucose 118 mg/dL (70-99); Potassium 3.9 mmol/L (3.3-5.1)
== END ==
LOC: OLS.WHLEAS 04:25
PROVIDERS: PCP Internal Medicine; Referring Provider Internal Medicine; Visit Provider Internal Medicine
DX: E11.40 Type 2 diabetes mellitus with diabetic neuropathy, unspecified (principal); I10 Essential (primary) hypertension; J44.9 Chronic obstructive pulmonary disease, unspecified; R00.0 Tachycardia, unspecified; E78.00 Pure hypercholesterolemia, unspecified
CPT/HCPCS: 36415; 80048; 85025

== ENCOUNTER → 2025-01-20 | Outpatient (REF) | payer MEDICARE, MEDICAID, SELFPAY ==
[2025-01-20 11:59] LABS: Ferritin 193 ng/mL (22-378); Vitamin B12 727 pg/mL (180-914)
[2025-01-20 12:23] LABS: Iron 31 ug/dL (50-170); Iron Binding Capacity,Total 238 ug/dL (250-450); Iron Binding Capacity,Unsat 207 ug/dL (228-428); Magnesium 2.2 mg/dL (1.5-2.2)
== END ==
LOC: OLS.WHLEAS 05:00
PROVIDERS: PCP Internal Medicine; Visit Provider Internal Medicine
DX: G20.C Parkinsonism, unspecified (principal); E11.40 Type 2 diabetes mellitus with diabetic neuropathy, unspecified; R25.1 Tremor, unspecified; J44.9 Chronic obstructive pulmonary disease, unspecified
CPT/HCPCS: 36415; 82607; 82728; 83540; 83550; 83735

== ENCOUNTER → 2025-02-06 | Outpatient (CLI) | payer MEDICARE, MEDICAID, SELFPAY ==
[2025-02-06 18:37] LABS: Ferritin 144 ng/mL (22-378); Iron 37 ug/dL (50-170); Magnesium 2.0 mg/dL (1.5-2.2); Vitamin B12 712 pg/mL (180-914)
== END | disposition home or self-care (01) ==
LOC: MTLAB 15:25
PROVIDERS: PCP Internal Medicine
DX: G20.A1 Parkinson's disease without dyskinesia, without mention of fluctuations (principal); G25.81 Restless legs syndrome
CPT/HCPCS: 36415; 82607; 82728; 83540; 83735

== ENCOUNTER → 2025-02-14 | Outpatient (REF) | payer MEDICARE, MEDICAID, SELFPAY ==
[2025-02-14 07:43] LABS: Hematocrit 44.4 % (37-47); Hemoglobin 13.7 g/dL (12.0-15.0); Immature Granulocytes Count 0.030 X10^3/uL (0.0-0.0); Mean Corp Hgb Conc 30.9 g/dL (32-36); Mean Corpuscular Volume 97.2 fL (81-99); Mean Platelet Vol. 8.8 fl (6.2-12.0); NRBC Flagged by Analyzer 0 % (0-5); Platelet Count 373 K/mm3 (150-450); RBC Distribution Width CV 13.8 % (11.6-14.6); RBC Distribution Width SD 48.8 fl (35.1-43.9); Red Blood Count 4.57 M/mm3 (4.2-5.4); White Blood Count 8.4 K/mm3 (4.4-11.0)
[2025-02-14 08:05] LABS: Anion Gap 11 (5-15); BUN 14 mg/dL (4-19); BUN/Creat Ratio 22.1 RATIO (10-20); Calcium,Total 9.0 mg/dL (7.6-11.0); Carbon Dioxide 22.6 mmol/L (21.0-32.0); Chloride 104 mmol/L (98-108); Glucose 107 mg/dL (70-99); Potassium 4.6 mmol/L (3.3-5.1)
== END ==
LOC: OLS.WHLEAS 04:00
PROVIDERS: PCP Internal Medicine; Referring Provider Internal Medicine; Visit Provider Internal Medicine
DX: E03.9 Hypothyroidism, unspecified (principal); G20.C Parkinsonism, unspecified; E11.40 Type 2 diabetes mellitus with diabetic neuropathy, unspecified; J44.9 Chronic obstructive pulmonary disease, unspecified
CPT/HCPCS: 36415; 80048; 84443; 85025

== ENCOUNTER → 2025-03-14 05:00 | Outpatient (REF) | payer MEDICARE, MEDICAID, SELFPAY ==
[2025-03-14 07:57] LABS: Hematocrit 42.2 % (37-47); Hemoglobin 13.6 g/dL (12.0-15.0); Immature Granulocytes Count 0.010 X10^3/uL (0.0-0.0); Mean Corp Hgb Conc 32.2 g/dL (32-36); Mean Corpuscular Volume 94.8 fL (81-99); Mean Platelet Vol. 8.7 fl (6.2-12.0); NRBC Flagged by Analyzer 0 % (0-5); Platelet Count 341 K/mm3 (150-450); RBC Distribution Width CV 14.5 % (11.6-14.6); RBC Distribution Width SD 49.9 fl (35.1-43.9); Red Blood Count 4.45 M/mm3 (4.2-5.4); White Blood Count 9.0 K/mm3 (4.4-11.0)
[2025-03-14 08:14] LABS: Anion Gap 13 (5-15); BUN 21 mg/dL (4-19); BUN/Creat Ratio 26.1 RATIO (10-20); Calcium,Total 9.0 mg/dL (7.6-11.0); Carbon Dioxide 22.3 mmol/L (21.0-32.0); Chloride 104 mmol/L (98-108); Glucose 115 mg/dL (70-99); Potassium 4.2 mmol/L (3.3-5.1)
== END ==
LOC: OLS.WHLEAS 05:00
PROVIDERS: PCP Internal Medicine; Visit Provider Internal Medicine
DX: E11.40 Type 2 diabetes mellitus with diabetic neuropathy, unspecified (principal); J44.9 Chronic obstructive pulmonary disease, unspecified; G20.C Parkinsonism, unspecified
CPT/HCPCS: 36415; 80048; 85025

== ENCOUNTER → 2025-03-28 05:00 | Outpatient (REF) | payer MEDICARE, MEDICAID, SELFPAY | LOC: OLS.WHLEAS 05:00 | PROVIDERS: PCP Internal Medicine; Visit Provider Internal Medicine | DX: G20.C Parkinsonism, unspecified (principal); E11.40 Type 2 diabetes mellitus with diabetic neuropathy, unspecified; R25.1 Tremor, unspecified; J44.9 Chronic obstructive pulmonary disease, unspecified; J45.909 Unspecified asthma, uncomplicated; E03.9 Hypothyroidism, unspecified | CPT/HCPCS: 36415; 84443 ==